=== PATIENT | male | born 1950 | race Caucasian/White ===

== ENCOUNTER → 2020-07-21 11:15 | Outpatient (BNVA) | payer OTHER, SELFPAY | PROVIDERS: PCP Internal Medicine Sports Medicine; Visit Provider Nurse Practitioner Family | DX: Z01.818 Encounter for other preprocedural examination (principal); J43.2 Centrilobular emphysema; J96.11 Chronic respiratory failure with hypoxia; F32.9 Major depressive disorder, single episode, unspecified; E78.5 Hyperlipidemia, unspecified; I25.10 Atherosclerotic heart disease of native coronary artery without angina pectoris; I10 Essential (primary) hypertension; Z87.891 Personal history of nicotine dependence; Z88.6 Allergy status to analgesic agent; Z88.0 Allergy status to penicillin; Z88.2 Allergy status to sulfonamides; Z88.8 Allergy status to other drugs, medicaments and biological substances; Z95.5 Presence of coronary angioplasty implant and graft; Z79.899 Other long term (current) drug therapy | CPT/HCPCS: 93005 ==

== ENCOUNTER → 2020-08-29 08:47 | Outpatient (BNVA) | payer OTHER, SELFPAY | PROVIDERS: PCP Internal Medicine Sports Medicine; Referring Provider Internal Medicine Sports Medicine; Visit Provider Hospitalist | DX: J96.11 Chronic respiratory failure with hypoxia (principal); J43.2 Centrilobular emphysema | CPT/HCPCS: 99212 ==

== ENCOUNTER 2020-09-12 13:47 | Outpatient (REF) | payer OTHER, SELFPAY ==
--- NOTE | 2020-09-12 13:56 | XR_ITS ---
EXAMINATION: XR CHEST CLINICAL INFORMATION: Centrilobular emphysema, J43.2 COMPARISON: CT chest screening 11/11/2019, chest radiographs 02/20/2019, 01/11/2019 TECHNIQUE: 2 views of the chest were obtained. FINDINGS: There is no overt hyperinflation. Subtle groundglass opacities are suggested subpleural mid zones without lobar or segmental airspace consolidation or air bronchograms. No cavitary lesion. No effusion. The heart is normal in size. Tapering cardiac apex is consistent with areolar tissue. XR/XR chest 2V IMPRESSION: 1. Suspect subtle groundglass opacities bilateral subpleural mid zones. 2. No lobar or segmental airspace consolidation, air bronchograms, or effusion.
== END 2020-09-12 13:48 | disposition home or self-care (01) ==
LOC: HO.XRAY 13:47
PROVIDERS: PCP Internal Medicine Sports Medicine; Visit Provider Hospitalist
DX: J43.2 Centrilobular emphysema (principal)
CPT/HCPCS: 71046

== ENCOUNTER 2020-10-05 13:45 | Outpatient (RCR) | payer OTHER, SELFPAY ==
--- NOTE | 2020-07-28 10:09 | P.PNPSO_ITS ---
Subjective Subjective Date of Service: 06/27/20 Reason For Visit: depression Interim History: Pt reports an increase in depressive sx. Describes feeling like a shakey mess . Finds previous regime was better with sx mgt. Will return to Olanzapine 5 mg hs, 2.5 mg a.m., Lorazepam, and Trileptal 150 mg bid. Xanax trial not too helpful. Reports he has attempted to structure his day. Medication Compliance: Yes Side effects from medications: No Attending Groups: No (NA) Review of Systems Cardiovascular: Reports dyspnea and Reports dyspnea on exertion Respiratory: Reports dyspnea, Reports dyspnea on exertion and Reports other (COPD, Emphysema) Psychiatric: Reports anxiety, Reports depression, Reports difficulty co ncentrating, Reports hopelessness, Reports irritability, Reports anhedonia and Reports panic attacks Mental Status Exam Mental Status Exam Patient Orientation: Person, Place, Time and Situation Level of Consciousness: Awake, Appropriate and Alert Patient Behavior: Passive, Anxious and Confused (intermittent, brief, and at times) Mood Description: Anxious and Flat Affect Description: Depressed and Flat Patient Cognition Impaired: No Ability to Follow Directions: Excellent Speech Pattern: Clear, Appropriate, Monotone, Spontaneous Speech and Soft-Spoken Memory Description: Intact Hallucinations: None Delusions: Not Present Thought Process: Intact Thought Content: positive for Intact Depressive Symptoms: Increased Anxiety, Crying Spells, Loss of Int. in Activity, Feelings of Worthlessness, Hopelessness, Isolating-Friends/Family, Unhappiness, Increased Fatigue, Low Self Esteem, Loss of Energy and Difficulty Concentrating Judgement: Good Discharge Plan Discharge Attending provider: Trina Rawls Additional Instructions: Zyprexa 2.5 a.m. 5 mg hs Trileptal 150 mg bid Stop Rexulti, Xanax Medications: New oxcarbazepine [Trileptal] 150 mg tablet 150 mg PO BID Qty: 60 RF: 0 Trintellix 20 mg tablet 20 mg PO DAILY Qty: 90 RF: 0 lorazepam [Ativan] 0.5 mg tablet 0.5 mg PO TID PRN (Reason: anxiety) Qty: 90 RF: 0 Discontinued Ativan 0.5 mg 0.5 mg PO ONCE RF: 0 Ativan 0.5 mg 0.5 mg PO BID PRN (Reason: Anxiety) RF: 0 No Action ProAir RespiClick 90 mcg/actuation aerosol powdr breath activated 2 inh inhalation Q4-6H PRN (Reason: Shortness Of Breath) Qty: 1 RF: 3 levalbuterol tartrate 45 mcg/actuation HFA aerosol inhaler 2 puff inhalation Q4H PRN (Reason: shortness of breath or wheezing) Qty: 15 RF: 11 albuterol sulfate 2.5 mg /3 mL (0.083 %) solution for nebulization 3 ml inhalation Q6H PRN (Reason: Shortness Of Breath) RF: 0 famotidine 40 mg tablet 1 tab PO BEDTIME RF: 0 propranolol 10 mg tablet 1 tab PO TID RF: 0 amlodipine 10 mg tablet 1 tab PO DAILY RF: 0 Spiriva Respimat 2.5 mcg/actuation mist 2 puff PO DAILY RF: 0 Zyprexa 5 mg 5 mg PO BEDTIME RF: 0 Zyprexa 2.5 mg 2.5 mg PO DAILY PRN (Reason: Anxiety) RF: 0 Trelegy Ellipta 100-62.5-25 mcg blister with device 1 inh inhalation DAILY 30 Days Qty: 60 RF: 11 ascorbic acid (vitamin C) 1,000 mg tablet 500 mg PO BID RF: 0 Spectravite Adult 50 Plus 0.4-300-250 mg-mcg-mcg tablet 1 tab PO DAILY RF: 0 zinc acetate 25 mg (zinc) capsule 25 mg PO DAILY RF: 0 cholecalciferol (vitamin D3) 25 mcg (1,000 unit) capsule 50 mcg PO DAILY RF: 0 dicyclomine 10 mg capsule 30 mg PO TID RF: 0 olanzapine 2.5 mg tablet 2.5 mg PO DAILY PRN (Reason: anxiety) RF: 0 Assessment & Plan Patient educated on: medication risk/benefits and therapeutic strategies Informed Consent: understands and further education needed Reason for contiued therapy Substantial Risk for: inability to function, rapid decompensation and med/psych decompensation Greater than 50% of the session was spent on counseling and/or coordination of care
--- NOTE | 2020-07-28 10:18 | HO.OPPROGNO ---
Subjective Subjective Date of Service: 07/07/20 Reason For Visit: depression Interim History: Meetings with pt 07/06 and 07/07. Feeling better, less anxious today. Will have consults for TMS and ECT along with cardiac, respiratory consults for clearance for ECT if needed on 07/21/20. Pt participating in scale evaluation. He makes the point that scales are not good measures of how he is feeling as he finds he is connected with providers, feels good support and is improved when talking with them vs how he is feeling when he is on his own. Discussed these changes in mood/affect and benefits of remaining connected with others, especially during pandemic. Medication changes tolerated without adverse effect. Review of Systems Cardiovascular: Reports dyspnea and Reports dyspnea on exertion Respiratory: Reports dyspnea and Reports dyspnea on exertion Psychiatric: Reports anxiety, Reports depression, Reports hopelessness, Reports anhedonia and Reports panic attacks Mental Status Exam Mental Status Exam Patient Orientation: Person, Place, Time and Situation Level of Consciousness: Awake and Alert Patient Behavior: Appropriate Mood Description: Anxious and Flat Affect Description: Flat Patient Cognition Impaired: No Ability to Follow Directions: Excellent Speech Pattern: Clear, Appropriate and Spontaneous Speech Memory Description: Intact Hallucinations: None Delusions: Not Present Thought Process: Intact Thought Content: positive for Intact Depressive Symptoms: Increased Anxiety, Loss of Int. in Activity, Feelings of Worthlessness, Hopelessness, Unhappiness, Increased Fatigue, Low Self Esteem, Loss of Energy and Difficulty Concentrating Judgement: Good Discharge Plan Discharge Attending provider: Trina Rawls Additional Instructions: Zyprexa 2.5 a.m. 5 mg hs Trileptal 150 mg bid Stop Rexultmerrill Xanax Medications: New oxcarbazepine [Trileptal] 150 mg tablet 150 mg PO BID Qty: 60 RF: 0 Trintellix 20 mg tablet 20 mg PO DAILY Qty: 90 RF: 0 lorazepam [Ativan] 0.5 mg tablet 0.5 mg PO TID PRN (Reason: anxiety) Qty: 90 RF: 0 olanzapine [Zyprexa] 5 mg tablet 5 mg PO BEDTIME Qty: 30 RF: 1 Continued olanzapine 2.5 mg tablet 2.5 mg PO DAILY PRN (Reason: anxiety) Qty: 30 RF: 1 Discontinued Ativan 0.5 mg 0.5 mg PO ONCE RF: 0 Ativan 0.5 mg 0.5 mg PO BID PRN (Reason: Anxiety) RF: 0 No Action ProAir RespiClick 90 mcg/actuation aerosol powdr breath activated 2 inh inhalation Q4-6H PRN (Reason: Shortness Of Breath) Qty: 1 RF: 3 levalbuterol tartrate 45 mcg/actuation HFA aerosol inhaler 2 puff inhalation Q4H PRN (Reason: shortness of breath or wheezing) Qty: 15 RF: 11 albuterol sulfate 2.5 mg /3 mL (0.083 %) solution for nebulization 3 ml inhalation Q6H PRN (Reason: Shortness Of Breath) RF: 0 famotidine 40 mg tablet 1 tab PO BEDTIME RF: 0 propranolol 10 mg tablet 1 tab PO TID RF: 0 amlodipine 10 mg tablet 1 tab PO DAILY RF: 0 Spiriva Respimat 2.5 mcg/actuation mist 2 puff PO DAILY RF: 0 Zyprexa 5 mg 5 mg PO BEDTIME RF: 0 Zyprexa 2.5 mg 2.5 mg PO DAILY PRN (Reason: Anxiety) RF: 0 Trelegy Ellipta 100-62.5-25 mcg blister with device 1 inh inhalation DAILY 30 Days Qty: 60 RF: 11 ascorbic acid (vitamin C) 1,000 mg tablet 500 mg PO BID RF: 0 Spectravite Adult 50 Plus 0.4-300-250 mg-mcg-mcg tablet 1 tab PO DAILY RF: 0 zinc acetate 25 mg (zinc) capsule 25 mg PO DAILY RF: 0 cholecalciferol (vitamin D3) 25 mcg (1,000 unit) capsule 50 mcg PO DAILY RF: 0 dicyclomine 10 mg capsule 30 mg PO TID RF: 0 Assessment & Plan Patient educated on: medication risk/benefits Informed Consent: understands and further education needed Reason for contiued therapy Substantial Risk for: med/psych decompensation Greater than 50% of the session was spent on counseling and/or coordination of care
--- NOTE | 2020-08-02 12:19 | HO.OPPROGNO ---
Subjective Subjective Date of Service: 08/02/20 Reason For Visit: depression Interim History: I feel lousey . Pt reports JULIANO~ 4:30am with panic sx, and feeling very depressed. Cites fear of virus as part of this. Reports he awaits TMS to begin. Current regime, Zyprexa 2.5 mg 10am Ativan 1mg 4:30am, 0.5 mg 10am, Zyprexa 2.5 mg hs, Trileptal 150 mg bid, Propranolol 10 mg tid, Trintellix 20 mg a.m. Using oxygen for 10 minutes upon awakening. Medication Compliance: Intermittent Side effects from medications: No Attending Groups: No (NA) Review of Systems Constitutional: Reports difficulty sleeping Cardiovascular: Reports dyspnea and Reports dyspnea on exertion Respiratory: Reports dyspnea, Reports dyspnea on exertion and Reports wheezing Psychiatric: Reports abnormal sleep pattern, Reports anxiety, Reports depression, Reports hopelessness, Reports anhedonia and Reports panic attacks Allergic/Immunologic: Reports wheezing Mental Status Exam Mental Status Exam Patient Orientation: Person, Place, Time and Situation Level of Consciousness: Awake, Appropriate and Alert Patient Behavior: Appropriate and Cooperative Mood Description: Anxious Affect Description: Anxious Patient Cognition Impaired: No Ability to Follow Directions: Excellent Speech Pattern: Clear Memory Description: Intact Hallucinations: None Thought Process: Intact Thought Content: positive for Intact Depressive Symptoms: Increased Anxiety, Insomnia, Difficulty Sleeping, Hopelessness, Isolating-Friends/Family, Unhappiness, Increased Fatigue and Loss of Energy Judgement: Good Discharge Plan Discharge Attending provider: Trina Rawls Additional Instructions: Zyprexa 2.5 a.m. 5 mg hs Trileptal 150 mg bid Stop Татьяна Brock 08/02/20- Increase Lorazepam to 1 mg bid prn Pt has been taking Zyprexa 2.5 mg bid. He will increase to 2.5 mg a.m. 5 mg p.m. Increase Trileptal to 300mg po bid Medications: New oxcarbazepine [Trileptal] 150 mg tablet 150 mg PO BID Qty: 60 RF: 0 Trintellix 20 mg tablet 20 mg PO DAILY Qty: 90 RF: 0 olanzapine [Zyprexa] 5 mg tablet 5 mg PO BEDTIME Qty: 30 RF: 1 lorazepam 1 mg tablet 1 mg PO BID PRN (Reason: anxiety) Qty: 60 RF: 0 Continued olanzapine 2.5 mg tablet 2.5 mg PO DAILY PRN (Reason: anxiety) Qty: 30 RF: 1 Discontinued Ativan 0.5 mg 0.5 mg PO ONCE RF: 0 Ativan 0.5 mg 0.5 mg PO BID PRN (Reason: Anxiety) RF: 0 No Action ProAir RespiClick 90 mcg/actuation aerosol powdr breath activated 2 inh inhalation Q4-6H PRN (Reason: Shortness Of Breath) Qty: 1 RF: 3 levalbuterol tartrate 45 mcg/actuation HFA aerosol inhaler 2 puff inhalation Q4H PRN (Reason: shortness of breath or wheezing) Qty: 15 RF: 11 albuterol sulfate 2.5 mg /3 mL (0.083 %) solution for nebulization 3 ml inhalation Q6H PRN (Reason: Shortness Of Breath) RF: 0 famotidine 40 mg tablet 1 tab PO BEDTIME RF: 0 propranolol 10 mg tablet 1 tab PO TID RF: 0 amlodipine 10 mg tablet 1 tab PO DAILY RF: 0 Spiriva Respimat 2.5 mcg/actuation mist 2 puff PO DAILY RF: 0 Zyprexa 5 mg 5 mg PO BEDTIME RF: 0 Zyprexa 2.5 mg 2.5 mg PO DAILY PRN (Reason: Anxiety) RF: 0 Trelegy Ellipta 100-62.5-25 mcg blister with device 1 inh inhalation DAILY 30 Days Qty: 60 RF: 11 ascorbic acid (vitamin C) 1,000 mg tablet 500 mg PO BID RF: 0 Spectravite Adult 50 Plus 0.4-300-250 mg-mcg-mcg tablet 1 tab PO DAILY RF: 0 zinc acetate 25 mg (zinc) capsule 25 mg PO DAILY RF: 0 cholecalciferol (vitamin D3) 25 mcg (1,000 unit) capsule 50 mcg PO DAILY RF: 0 dicyclomine 10 mg capsule 30 mg PO TID RF: 0 Assessment & Plan Patient educated on: medication risk/benefits, TMS (pending) and therapeutic strategies Informed Consent: understands and further education needed Reason for contiued therapy Substantial Risk for: med/psych decompensation Greater than 50% of the session was spent on counseling and/or coordination of care
--- NOTE | 2020-09-20 16:19 | HO.OPPROGNO ---
Subjective Subjective Date of Service: 09/20/20 Reason For Visit: depression Discharge Plan Discharge Attending provider: Trina Rawls Additional Instructions: Zyprexa 2.5 a.m. 5 mg hs Trileptal 150 mg bid Stop Mukul Brockgunner 08/02/20- Increase Lorazepam to 1 mg bid prn Pt has been taking Zyprexa 2.5 mg bid. He will increase to 2.5 mg a.m. 5 mg p.m. Increase Trileptal to 300mg po bid Medications: New Trintellix 20 mg tablet 20 mg PO DAILY Qty: 90 RF: 0 oxcarbazepine [Trileptal] 300 mg tablet 300 mg PO BID Qty: 60 RF: 1 lorazepam 0.5 mg tablet 0.5 mg PO BID PRN (Reason: anxiety) Qty: 60 RF: 1 Continued propranolol 10 mg tablet 1 tab PO TID Qty: 270 RF: 0 lorazepam 1 mg tablet 1 mg PO BID PRN (Reason: anxiety) Qty: 60 RF: 1 olanzapine 2.5 mg tablet 2.5 mg PO DAILY PRN (Reason: anxiety) Qty: 90 RF: 0 olanzapine [Zyprexa] 5 mg tablet 5 mg PO BEDTIME Qty: 90 RF: 0 Discontinued Ativan 0.5 mg 0.5 mg PO ONCE RF: 0 Ativan 0.5 mg 0.5 mg PO BID PRN (Reason: Anxiety) RF: 0 No Action ProAir RespiClick 90 mcg/actuation aerosol powdr breath activated 2 inh inhalation Q4-6H PRN (Reason: Shortness Of Breath) Qty: 1 RF: 3 levalbuterol tartrate 45 mcg/actuation HFA aerosol inhaler 2 puff inhalation Q4H PRN (Reason: shortness of breath or wheezing) Qty: 15 RF: 11 albuterol sulfate 2.5 mg /3 mL (0.083 %) solution for nebulization 3 ml inhalation Q6H PRN (Reason: Shortness Of Breath) RF: 0 famotidine 40 mg tablet 1 tab PO BEDTIME RF: 0 amlodipine 10 mg tablet 1 tab PO DAILY RF: 0 Spiriva Respimat 2.5 mcg/actuation mist 2 puff PO DAILY RF: 0 Zyprexa 5 mg 5 mg PO BEDTIME RF: 0 Zyprexa 2.5 mg 2.5 mg PO DAILY PRN (Reason: Anxiety) RF: 0 Trelegy Ellipta 100-62.5-25 mcg blister with device 1 inh inhalation DAILY 30 Days Qty: 60 RF: 11 ascorbic acid (vitamin C) 1,000 mg tablet 500 mg PO BID RF: 0 Spectravite Adult 50 Plus 0.4-300-250 mg-mcg-mcg tablet 1 tab PO DAILY RF: 0 zinc acetate 25 mg (zinc) capsule 25 mg PO DAILY RF: 0 cholecalciferol (vitamin D3) 25 mcg (1,000 unit) capsule 50 mcg PO DAILY RF: 0 dicyclomine 10 mg capsule 30 mg PO TID RF: 0 levalbuterol HCl 1.25 mg/3 mL solution for nebulization inhalation RF: 0 Flublok Quad [id number] (PF) 180 mcg (45 mcg x 4)/0.5 mL syringe IM RF: 0 fluticasone propion-salmeterol [Advair Diskus] 500-50 mcg/dose blister with device 1 inh inhalation BID 30 Days Qty: 60 RF: 11 prednisone 20 mg tablet 20 mg PO DAILY 10 Days Qty: 15 RF: 0 Assessment & Plan Greater than 50% of the session was spent on counseling and/or coordination of care
--- NOTE | 2021-02-01 15:53 | PM.EVENT ---
Event Note Date of Service: 02/01/21 Event Note: Pt has a history of being seen in [facility] which has closed effective November 21, 2020. Pt transferred on 11/02/20. Pt is on a waiting list to be see for psychopharmacology with [facility]. 11/08/20: Appt with [facility] intake went well-waiting list for prescriber. Sleep/Appetite are good, Reading about Remeron for anxiety which we will trial. 11/16/20: Rehab is going well, learning a lot about his breathing. Mirtazapine working at 3.75 mg, asks to increase to 7.5 mg hs which we will trial. 11/30/20: Awakening comfortable. Stopped Trileptal which he thinks helped anxiety but caused pneumonitis. Continues with Olanzapine, Propranolol, Lorazepam, Trintellix. Asking to trial Fluvoxamine. Discussed cross-titration/taper with Trintellix and need to allow 4-6 weeks trial which he agrees to. 12/12/20: Reports stress, misplaces items at times-preparing to attend a [employer]-trying to get back out as COVID resolves. Fluvoxamine has stopped after 9 days, was taking 1/4 of a 50 mg pill. 12.5 mg Finds it not helpful so he has stopped. 12/14/20: Reports Fluvoxamine was not helpful so he has stopped. Sleep/Appetite are Intact. Anxiety is high. Discussed tapering Trintellix as well. Discussed with pt that antidepressants do not appear to help sx, and even in small doses he exacerbates-Olanzapine, Lorazepam have been consistent and useful. Pt still reports researching meds and states that at times he finds this not to be helpful as he can attain sx while reading. Encouraged to utilized his oxygen as well. Trintellix to decrease from 20 mg daily to 15 mg daily 01/06/21: Pt reports ongoing anxiety with an overall decrease of sx. Using Lorazepam tid. Olanzapine helps also. Pt has stopped Trintellix he reports and feels a decrease in focus but also a decrease in anxiety. Discussed EmSam trial, discussed Depakote trial-Plan: Depakote 125 mg daily. Sleep and appetite are great , however anxiety begins upon awakening-decreasing after breakfast and Ativan prn. 01/13/21: Pt reports he stopped Remeron 01/11/21. Therapist will be away until mid-January. Pt states he is still on the waiting list for a prescriber with [facility]. Reports sleep and appetite are good. Depakote 125 mg is useful, asks if it can be titrated to bid which we will do.. Still considering EmSam. Continues with Propranolol 10 mg tid, Olanzapine 5 mg hs, 2.5 mg daily prn, Lorazepam 1 mg tid prn. Again discussed with pt having VNA to assist with medicines, but he declines. 01/18/21: Pt reports he has stopped Mirtazapine trial. Anxiety is strongest in the morning. Continues with Olanzapine, Lorazepam, Depakote 125 mg bid-initially packed a punch now more subdued. Reports sleeping well, not as productive as he would like to be, able to go on walks, rides, but not doing projects as he used to do. Using O2 as needed. 01/27/21- Reports some relief with Depakote. Discussed increase to 125 mg tid which he agrees. Difficulty with focus. Still considering a possible EmSam trial. Using Lorazepam-keeping this at 1 mg bid along with Olanzapine. 02/01/21-Pt reports no improvement with Depakote 125 mg tid. He denies SE but continues to have anxiety/panic. He finds Olanzapine 2.5 mg daily prn and 5 mg hs helpful and will continue. He will continue Lorazepam 1 mg tid prn, and Propranolol 10 mg tid. He reports he will begin a 28 day course of Azithromycin 250 mg with his respiratory team. Therapist from [facility] he reports is back from her leave. They have re-connected. Pt remains on the waiting list for psychopharmacology. Plan: Will taper Depakote to 125 mg bid on 02/02 and 125 mg daily on 02/03 and discontinue. No further changes at this time.
== END 2020-11-20 23:55 | disposition home or self-care (01) ==
LOC: HO.PAOS 13:45
PROVIDERS: Visit Provider Clinical Nurse Specialist Psychiatric/Mental Health, Adult
DX: F33.2 Major depressive disorder, recurrent severe without psychotic features (principal); F41.0 Panic disorder [episodic paroxysmal anxiety]
CPT/HCPCS: 99213

== ENCOUNTER 2020-10-06 13:00 | Outpatient (RCR) | payer OTHER, SELFPAY ==
--- NOTE | 2020-07-22 13:36 | W.PM.TMSCONS ---
History of Present Illness General Data Date of Service: 07/22/2020 Reason for consult: consult for TMS Requesting provider: Trina Rawls History of Present Illness the patient is a 70-year-old male with a history of severe treatment resistant depression who has had a good response to TMS in the past and is at medical risk for ECT secondary to COPD and ASHD. The patient for months has had ongoing depressed mood difficulty enjoying things fearfulness leaving the house an ongoing hopelessness and helplessness. Feels like he will never be able to function again. Patient has had 2 inpatient hospitalizations secondary to treatment resistant depression. The patient sees Trina Koroma for therapy and medication management. Current medications have included Trintellix 20 mg daily Zyprexa 5 mg at bedtime 2.5 mg daily as needed Ativan 0.5 mg the morning and daily as needed Trileptal 150 mg twice a day propranolol 10 mg 3 times a day albuterol nebulizer amlodipine 10 mg daily Spiriva 2.5 mg 2 puffs daily for admitted in 40 mg daily. The patient had a previous course of TMS with good response. he is a general sense of despondency feeling at times that he might be better off feeling useless Past Psychiatric History/Medication Trials: Past medication trials include Effexor fluoxetine sertraline Paxil Wellbutrin Remeron Lamictal and Seroquel. 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 He has a supportive family including sister and mother Substance History: no history of alcohol or substance abuse Trauma History: no history of sexual or physical trauma Meds/Allergies Meds Home Medications Medication Instructions Recorded Confirmed Type Zyprexa 2.5 mg PO DAILY PRN 07/08/20 07/21/20 History Zyprexa 5 mg PO BEDTIME 07/08/20 07/21/20 History albuterol sulfate 3 ml INHALATION Q6H PRN 07/08/20 07/21/20 History albuterol sulfate [ProAir 2 puff INHALATION Q4-6H PRN 07/08/20 07/21/20 History RespiClick] amlodipine 1 tab PO DAILY 07/08/20 07/21/20 History famotidine 1 tab PO BEDTIME 07/08/20 07/21/20 History propranolol 1 tab PO TID 07/08/20 07/21/20 History tiotropium bromide [Spiriva 2 puff PO DAILY 07/08/20 07/21/20 History Respimat] ascorbic acid (vitamin C) 1,000 mg 500 mg PO BID 07/21/20 07/21/20 History tablet cholecalciferol (vitamin D3) 25 50 mcg PO DAILY cap 07/21/20 07/21/20 History mcg (1,000 unit) capsule dicyclomine 10 mg capsule 30 mg PO TID 07/21/20 07/21/20 History fkotpero-pzo-xskzx acid 0.4 1 tab PO DAILY 07/21/20 07/21/20 History mg-lycopene 300 mcg-lutein 250 mcg tablet olanzapine 2.5 mg tablet 2.5 mg PO DAILY PRN 07/21/20 07/21/20 History zinc acetate 25 mg (zinc) capsule 25 mg PO DAILY 07/21/20 07/21/20 History Allergies Allergies Allergy/AdvReac Type Severity Reaction Status Date / Time lamotrigine [From LAMICTAL] Allergy Severe agitation Verified 07/21/20 14:44 and anxiety with titration codeine [CODEINE] Allergy Intermediate INSOMNIA Verified 07/21/20 14:44 Penicillins [PENICILLINS] Allergy Intermediate RASH Verified 07/21/20 14:44 epinephrine [EPINEPHRINE] AdvReac Intermediate Hypertensio Verified 07/21/20 14:44 n escitalopram [From LEXAPRO] AdvReac Intermediate NIGHTMARES Verified 07/21/20 14:44 sertraline [From ZOLOFT] AdvReac Intermediate NIGHTMARES Verified 07/21/20 14:44 sulfamethoxazole AdvReac Intermediate STOMACH Verified 07/21/20 14:44 [From BACTRIM] UPSET Mental Status Exam Mental Status Exam Patient Orientation: Person, Place, Time and Situation Level of Consciousness: Awake Patient Behavior: Cooperative and Anxious Mood Description: Constricted, Anxious, Blunted and Sad Affect Description: Depressed, Anxious and Apprehensive Speech Pattern: Clear and Appropriate Memory Description: Working Impaired Hallucinations: None Delusions: Not Present Thought Process: Distracted and Rumination Depressive Symptoms: Hopelessness, Increased Fatigue and Difficulty Concentrating Assessment & Plan Assessment & Plan (1) Major depressive disorder, recurrent episode, severe with anxious distress: Status: Acute Code(s): F33.2 - Major depressive disorder, recurrent severe without psychotic features (2) COPD (chronic obstructive pulmonary disease): Qualifiers: COPD type: emphysema Emphysema type: centrilobular Qualified Code(s): J43.2 - Centrilobular emphysema Status: Acute Code(s): J44.9 - Chronic obstructive pulmonary disease, unspecified (3) Stented coronary artery: Status: Acute Code(s): Z95.5 - Presence of coronary angioplasty implant and graft Recommendations: the patient has relapse with severe depression and has never stabilized on medication alone. The stress of the current pandemic the patient feeling in ongoing way useless isolated not functioning worsening depression with thoughts that he would be better off not present. Patient had a history of a good response to TMS he is currently severely depressed and ruminating and would benefit from another course of TMS. Patient is at risk with ECT and should not be considered unless absolutely necessary. There are no medical contraindications to TMS. No metal objects no history of seizures no psychosis patient would benefit from a trial as soon as possible Greater than 50% of the session was spent on counseling and/or coordination of care
--- NOTE | 2020-08-10 15:12 | PM.EVENT ---
Event Note Date of Service: 08/10/20 Event Note: Brief check in with pt today. He initiated TMS. Appointment will be daily at 1:15pm. Discussed persistant a.m. anxiety/panic and possible etiologies. Discussed this sx possibly having some pulmonary connections. Pt will use O2 for a longer segment in the a.m. and we will continue to evaluate.
--- NOTE | 2020-08-11 04:21 | HO.TMSDAILY2 ---
TMS Daily Progress Note Daily TMS Progress Note Week #: 1 Treatment #(10-22): 2 PHQ-9 Pre-Treatment (10-19): 18 PHQ-9 Most Recent (10-19): 18 DAIANA-7 Pre-Treatment (0-21): 15 DAIANA-7 Most Recent (0-21): 15 CGI-I Most Recent: 4 = No Change Q-LES-Q-SF Most Recent: 45 Reviewed: TMS Tech Note Reviewed Verification: I have reviewed the TMS Quill Picking Machine Operator Note and agree with the contents. The patient remains a candidate to continue TMS treatment per protocol.
--- NOTE | 2020-08-12 13:50 | P.PNPS_ITS ---
TMS Daily Progress Note Daily TMS Progress Note Week #: 1 Treatment #(10-22): 2 PHQ-9 Pre-Treatment (10-19): 18 PHQ-9 Most Recent (10-19): 18 DAIANA-7 Pre-Treatment (0-21): 15 DAIANA-7 Most Recent (0-21): 15 CGI-I Most Recent: 4 = No Change Q-LES-Q-SF Most Recent: 45 Reviewed: TMS Tech Note Reviewed Verification: I have reviewed the TMS Indirect Sales Representative Note and agree with the contents. The patient remains a candidate to continue TMS treatment per protocol.
--- NOTE | 2020-08-12 20:52 | P.PNPS_ITS ---
TMS Daily Progress Note Daily TMS Progress Note Week #: 1 (for initial mapping 08/10/2020) Treatment #(-30): 1 PHQ-9 Pre-Treatment (1-): 18 PHQ-9 Most Recent (10-19): 18 DAIANA-7 Pre-Treatment (0-21): 15 DAIANA-7 Most Recent (0-21): 15 CGI-I Most Recent: 4 = No Change Q-LES-Q-SF Most Recent: 45 Reviewed: TMS Tech Note Reviewed Verification: I have reviewed the TMS Lawn And Tree Service Spray Supervisor Note and agree with the contents. The patient remains a candidate to continue TMS treatment per protocol. difficult to map limited response on l 08/10/2020
--- NOTE | 2020-08-15 14:56 | HO.TMSDAILY2 ---
TMS Daily Progress Note Daily TMS Progress Note Week #: 1 Treatment #(10-22): 4 PHQ-9 Pre-Treatment (10-19): 18 PHQ-9 Most Recent (10-19): 18 DAIANA-7 Pre-Treatment (0-21): 15 DAIANA-7 Most Recent (0-21): 15 CGI-I Most Recent: 4 = No Change Q-LES-Q-SF Most Recent: 45 Reviewed: TMS Tech Note Reviewed Verification: I have reviewed the TMS Licensed Practical Nurse Clinic Nurse Note and agree with the contents. The patient remains a candidate to continue TMS treatment per protocol.
--- NOTE | 2020-08-16 23:18 | P.PNPS_ITS ---
TMS Daily Progress Note Daily TMS Progress Note Date of Service: 08/23/20 Week #: 1 Treatment #(10-22): 5 PHQ-9 Pre-Treatment (-): 18 PHQ-9 Most Recent (10-19): 18 DAIANA-7 Pre-Treatment (0-21): 15 DAIANA-7 Most Recent (0-21): 15 CGI-I Most Recent: 4 = No Change Q-LES-Q-SF Most Recent: 45 Reviewed: TMS Tech Note Reviewed Verification: I have reviewed the TMS Field Representatives Director Note and agree with the contents. The patient remains a candidate to continue TMS treatment per protocol.
--- NOTE | 2020-08-17 05:46 | HO.TMSDAILY2 ---
TMS Daily Progress Note Daily TMS Progress Note Date of Service: 08/18/20 Week #: 2 Treatment #(-30): 6 PHQ-9 Pre-Treatment (-): 18 PHQ-9 Most Recent (10-19): 18 DAIANA-7 Pre-Treatment (0-21): 15 DAIANA-7 Most Recent (0-21): 15 CGI-I Most Recent: 4 = No Change Q-LES-Q-SF Most Recent: 45 Reviewed: TMS Tech Note Reviewed Verification: I have reviewed the TMS Package Dyeing Machine Operator Note and agree with the contents. The patient remains a candidate to continue TMS treatment per protocol.
--- NOTE | 2020-08-22 17:32 | HO.TMSDAILY2 ---
TMS Daily Progress Note Daily TMS Progress Note Date of Service: 08/22/20 Week #: 2 Treatment #(10-22): 7 PHQ-9 Pre-Treatment (-): 18 PHQ-9 Most Recent (10-19): 18 DAIANA-7 Pre-Treatment (0-21): 15 DAIANA-7 Most Recent (0-21): 15 CGI-I Most Recent: 4 = No Change Q-LES-Q-SF Most Recent: 45 Reviewed: TMS Tech Note Reviewed Verification: I have reviewed the TMS Consulting Services Manager Note and agree with the contents. The patient remains a candidate to continue TMS treatment per protocol.
--- NOTE | 2020-08-23 23:35 | HO.TMSDAILY2 ---
TMS Daily Progress Note Daily TMS Progress Note Date of Service: 08/23/20 Week #: 2 Treatment #(-): 8 PHQ-9 Pre-Treatment (-): 18 PHQ-9 Most Recent (10-19): 18 DAIANA-7 Pre-Treatment (0-21): 15 DAIANA-7 Most Recent (0-21): 15 CGI-I Most Recent: 4 = No Change Q-LES-Q-SF Most Recent: 45 Reviewed: TMS Tech Note Reviewed Verification: I have reviewed the TMS Administrative Nursing Supervisor Note and agree with the contents. The patient remains a candidate to continue TMS treatment per protocol.
--- NOTE | 2020-08-24 08:12 | P.PNPS_ITS ---
TMS Daily Progress Note Daily TMS Progress Note Date of Service: 08/24/20 Week #: 2 Treatment #(-): 9 PHQ-9 Pre-Treatment (-): 18 PHQ-9 Most Recent (10-19): 17 DAINAA-7 Pre-Treatment (0-21): 15 DAIANA-7 Most Recent (0-21): 16 CGI-I Most Recent: 4 = No Change Q-LES-Q-SF Most Recent: 45 Reviewed: TMS Tech Note Reviewed Verification: I have reviewed the TMS Scientific Glass Blower Note and agree with the contents. The patient remains a candidate to continue TMS treatment per protocol.
--- NOTE | 2020-08-25 16:54 | P.PNPS_ITS ---
TMS Daily Progress Note Daily TMS Progress Note Date of Service: 08/25/20 Week #: 2 Treatment #(-): 10 PHQ-9 Pre-Treatment (-): 18 PHQ-9 Most Recent (10-19): 17 DAIANA-7 Pre-Treatment (0-21): 15 DAIANA-7 Most Recent (0-21): 16 CGI-I Most Recent: 4 = No Change Q-LES-Q-SF Most Recent: 45 Reviewed: TMS Tech Note Reviewed Verification: I have reviewed the TMS Social Welfare Research Worker Note and agree with the contents. The patient remains a candidate to continue TMS treatment per protocol.
--- NOTE | 2020-08-26 16:35 | P.PNPS_ITS ---
TMS Daily Progress Note Daily TMS Progress Note Date of Service: 08/26/20 Week #: 3 Treatment #(-): 11 PHQ-9 Pre-Treatment (-): 18 PHQ-9 Most Recent (10-19): 17 DAIANA-7 Pre-Treatment (0-21): 15 DAIANA-7 Most Recent (0-21): 16 CGI-I Most Recent: 4 = No Change Q-LES-Q-SF Most Recent: 45 Reviewed: TMS Tech Note Reviewed Verification: I have reviewed the TMS Triple Valve Mechanic Note and agree with the contents. The patient remains a candidate to continue TMS treatment per protocol.
--- NOTE | 2020-08-29 18:46 | HO.TMSDAILY2 ---
TMS Daily Progress Note Daily TMS Progress Note Date of Service: 08/29/20 Week #: 3 Treatment #(-30): 12 PHQ-9 Pre-Treatment (-): 18 PHQ-9 Most Recent (10-19): 17 DAIANA-7 Pre-Treatment (0-21): 15 DAIANA-7 Most Recent (0-21): 16 CGI-I Most Recent: 4 = No Change Q-LES-Q-SF Most Recent: 45 Reviewed: TMS Tech Note Reviewed Verification: I have reviewed the TMS Spiritual Counselor Note and agree with the contents. The patient remains a candidate to continue TMS treatment per protocol.
--- NOTE | 2020-08-30 20:45 | HO.TMSDAILY2 ---
TMS Daily Progress Note Daily TMS Progress Note Date of Service: 08/30/20 Week #: 3 Treatment #(-30): 13 PHQ-9 Pre-Treatment (1-): 18 PHQ-9 Most Recent (10-19): 10 DAIANA-7 Pre-Treatment (0-21): 15 DAIANA-7 Most Recent (0-21): 15 CGI-I Most Recent: 4 = No Change Q-LES-Q-SF Most Recent: 45 Reviewed: TMS Tech Note Reviewed Verification: I have reviewed the TMS Inside Sales Account Executive Note and agree with the contents. The patient remains a candidate to continue TMS treatment per protocol.
--- NOTE | 2020-08-31 20:57 | HO.TMSDAILY2 ---
TMS Daily Progress Note Daily TMS Progress Note Date of Service: 08/31/20 Week #: 3 Treatment #(-30): 14 PHQ-9 Pre-Treatment (-): 18 PHQ-9 Most Recent (10-19): 10 DAIANA-7 Pre-Treatment (0-21): 15 DAIANA-7 Most Recent (0-21): 15 CGI-I Most Recent: 4 = No Change Q-LES-Q-SF Most Recent: 45 Reviewed: TMS Tech Note Reviewed Verification: I have reviewed the TMS Set And Exhibit Designer Note and agree with the contents. The patient remains a candidate to continue TMS treatment per protocol.
--- NOTE | 2020-09-02 10:24 | HO.TMSDAILY2 ---
TMS Daily Progress Note Daily TMS Progress Note Date of Service: 09/01/20 Week #: 3 Treatment #(-30): 15 PHQ-9 Pre-Treatment (1-): 18 PHQ-9 Most Recent (10-19): 10 DAIANA-7 Pre-Treatment (0-21): 15 DAIANA-7 Most Recent (0-21): 15 CGI-I Most Recent: 4 = No Change Q-LES-Q-SF Most Recent: 45 Reviewed: TMS Tech Note Reviewed (Late entry for 09/01/20) Verification: I have reviewed the TMS Clinical Courier Note and agree with the contents. The patient remains a candidate to continue TMS treatment per protocol.
--- NOTE | 2020-09-02 16:14 | HO.TMSDAILY2 ---
TMS Daily Progress Note Daily TMS Progress Note Date of Service: 09/02/20 Week #: 4 Treatment #(-30): 16 PHQ-9 Pre-Treatment (1-): 18 PHQ-9 Most Recent (10-19): 10 DAIANA-7 Pre-Treatment (0-21): 15 DAIANA-7 Most Recent (0-21): 15 CGI-I Most Recent: 4 = No Change Q-LES-Q-SF Most Recent: 45 Reviewed: TMS Tech Note Reviewed Verification: I have reviewed the TMS Embedded Systems Software Engineer Note and agree with the contents. The patient remains a candidate to continue TMS treatment per protocol.
--- NOTE | 2020-09-05 15:13 | HO.TMSDAILY2 ---
TMS Daily Progress Note Daily TMS Progress Note Date of Service: 09/05/20 Week #: 4 Treatment #(-): 17 PHQ-9 Pre-Treatment (-): 18 PHQ-9 Most Recent (10-19): 10 DAIANA-7 Pre-Treatment (0-21): 15 DAIANA-7 Most Recent (0-21): 15 CGI-I Most Recent: 4 = No Change Q-LES-Q-SF Most Recent: 45 Reviewed: TMS Tech Note Reviewed Verification: I have reviewed the TMS Ground Source Heat Pump Technician Note and agree with the contents. The patient remains a candidate to continue TMS treatment per protocol.
--- NOTE | 2020-09-05 15:16 | HO.TMSDAILY2 ---
TMS Daily Progress Note Daily TMS Progress Note Date of Service: 09/05/20 Week #: 4 Treatment #(-): 17 PHQ-9 Pre-Treatment (-): 18 PHQ-9 Most Recent (10-19): 10 DAIANA-7 Pre-Treatment (0-21): 15 DAIANA-7 Most Recent (0-21): 15 CGI-I Most Recent: 4 = No Change Q-LES-Q-SF Most Recent: 45 Reviewed: TMS Tech Note Reviewed Verification: I have reviewed the TMS Superintendent Maintenance Note and agree with the contents. The patient remains a candidate to continue TMS treatment per protocol.
--- NOTE | 2020-09-06 15:40 | HO.TMSDAILY2 ---
TMS Daily Progress Note Daily TMS Progress Note Date of Service: 09/06/20 Week #: 4 Treatment #(-): 18 PHQ-9 Pre-Treatment (-): 18 PHQ-9 Most Recent (10-19): 10 DAIANA-7 Pre-Treatment (0-21): 15 DAIANA-7 Most Recent (0-21): 15 CGI-I Most Recent: 4 = No Change Q-LES-Q-SF Most Recent: 45 Reviewed: TMS Tech Note Reviewed Verification: I have reviewed the TMS Bone Char Kiln Operator Note and agree with the contents. The patient remains a candidate to continue TMS treatment per protocol.
--- NOTE | 2020-09-07 15:42 | P.PNPS_ITS ---
TMS Daily Progress Note Daily TMS Progress Note Date of Service: 09/07/20 Week #: 4 Treatment #(-): 19 PHQ-9 Pre-Treatment (1-): 18 PHQ-9 Most Recent (10-19): 10 DAIANA-7 Pre-Treatment (0-21): 15 DAIANA-7 Most Recent (0-21): 15 CGI-I Most Recent: 4 = No Change Q-LES-Q-SF Most Recent: 45 Reviewed: TMS Tech Note Reviewed Verification: I have reviewed the TMS Health Facilities Surveyor Note and agree with the contents. The patient remains a candidate to continue TMS treatment per protocol.
--- NOTE | 2020-09-09 18:20 | HO.TMSDAILY2 ---
TMS Daily Progress Note Daily TMS Progress Note Date of Service: 09/18/20 Week #: 4 Treatment #(-): 20 PHQ-9 Pre-Treatment (-): 18 PHQ-9 Most Recent (10-19): 10 DAIANA-7 Pre-Treatment (0-21): 15 DAIANA-7 Most Recent (0-21): 15 CGI-I Most Recent: 4 = No Change Q-LES-Q-SF Most Recent: 45 Reviewed: TMS Tech Note Reviewed Verification: I have reviewed the TMS Metal Stamping Machine Operator Note and agree with the contents. The patient remains a candidate to continue TMS treatment per protocol.
--- NOTE | 2020-09-12 17:52 | HO.TMSDAILY2 ---
TMS Daily Progress Note Daily TMS Progress Note Date of Service: 09/12/20 Week #: 5 Treatment #(-30): 20 PHQ-9 Pre-Treatment (-): 18 PHQ-9 Most Recent (10-19): 10 DAIANA-7 Pre-Treatment (0-21): 15 DAIANA-7 Most Recent (0-21): 15 CGI-I Most Recent: 4 = No Change Q-LES-Q-SF Most Recent: 45 Reviewed: TMS Tech Note Reviewed Verification: I have reviewed the TMS Plate Straightener Note and agree with the contents. The patient remains a candidate to continue TMS treatment per protocol.
--- NOTE | 2020-09-13 22:56 | P.PNPS_ITS ---
TMS Daily Progress Note Daily TMS Progress Note Date of Service: 09/13/20 Week #: 5 Treatment #(-30): 22 PHQ-9 Pre-Treatment (1-): 18 PHQ-9 Most Recent (10-19): 10 DAIANA-7 Pre-Treatment (0-21): 15 DAIANA-7 Most Recent (0-21): 15 CGI-I Most Recent: 4 = No Change Q-LES-Q-SF Most Recent: 45 Reviewed: TMS Tech Note Reviewed Verification: I have reviewed the TMS Casting House Worker Note and agree with the contents. The patient remains a candidate to continue TMS treatment per protocol.
--- NOTE | 2020-09-17 00:11 | HO.TMSDAILY2 ---
TMS Daily Progress Note Daily TMS Progress Note Date of Service: 09/14/20 Week #: 5 Treatment #(-30): 23 PHQ-9 Pre-Treatment (1-27): 18 PHQ-9 Most Recent (-): 10 DAIANA-7 Pre-Treatment (0-21): 15 DAIANA-7 Most Recent (0-21): 15 CGI-I Most Recent: 4 = No Change Q-LES-Q-SF Most Recent: 45 Reviewed: TMS Tech Note Reviewed Verification: I have reviewed the TMS Clinical Laboratory Manager Note and agree with the contents. The patient remains a candidate to continue TMS treatment per protocol.for 09/14/2020
--- NOTE | 2020-09-19 18:02 | HO.TMSDAILY2 ---
TMS Daily Progress Note Daily TMS Progress Note Date of Service: 09/19/20 Week #: 5 Treatment #(-30): 25 PHQ-9 Pre-Treatment (1-): 18 PHQ-9 Most Recent (-): 10 DAIANA-7 Pre-Treatment (0-21): 15 DAIANA-7 Most Recent (0-21): 15 CGI-I Most Recent: 4 = No Change Q-LES-Q-SF Most Recent: 45 Reviewed: TMS Tech Note Reviewed Verification: I have reviewed the TMS Behavioral Sciences Department Chair Note and agree with the contents. The patient remains a candidate to continue TMS treatment per protocol.
--- NOTE | 2020-09-20 23:10 | HO.TMSDAILY2 ---
TMS Daily Progress Note Daily TMS Progress Note Date of Service: 09/20/20 Week #: 4 Treatment #(10-22): 25 PHQ-9 Pre-Treatment (1-): 18 PHQ-9 Most Recent (-): 10 DAIANA-7 Pre-Treatment (0-21): 15 DAIANA-7 Most Recent (0-21): 15 CGI-I Most Recent: 4 = No Change Q-LES-Q-SF Most Recent: 45 Reviewed: TMS Tech Note Reviewed Verification: I have reviewed the TMS Certified Home Health Aide Note and agree with the contents. The patient remains a candidate to continue TMS treatment per protocol.
--- NOTE | 2020-09-21 23:12 | P.PNPS_ITS ---
TMS Daily Progress Note Daily TMS Progress Note Date of Service: 09/21/20 Week #: 4 Treatment #(-): 26 PHQ-9 Pre-Treatment (1-): 18 PHQ-9 Most Recent (10-19): 10 DAIANA-7 Pre-Treatment (0-21): 15 DAIANA-7 Most Recent (0-21): 15 CGI-I Most Recent: 4 = No Change Q-LES-Q-SF Most Recent: 45 Reviewed: TMS Tech Note Reviewed Verification: I have reviewed the TMS Radio Reporter Note and agree with the contents. The patient remains a candidate to continue TMS treatment per protocol.
--- NOTE | 2020-09-22 23:51 | P.PNPS_ITS ---
TMS Daily Progress Note Daily TMS Progress Note Date of Service: 09/22/20 Week #: 4 Treatment #(-): 27 PHQ-9 Pre-Treatment (1-): 18 PHQ-9 Most Recent (-): 10 DAIANA-7 Pre-Treatment (0-21): 15 DAIANA-7 Most Recent (0-21): 15 CGI-I Most Recent: 4 = No Change Q-LES-Q-SF Most Recent: 45 Reviewed: TMS Tech Note Reviewed Verification: I have reviewed the TMS Business Services Sales Agent Note and agree with the contents. The patient remains a candidate to continue TMS treatment per protocol.
--- NOTE | 2020-09-23 11:22 | HO.PS.ADMOP ---
HPI Chief Complaint: depression Sources of Information: patient interviewed and chart reviewed HPI Narrative: Pt reports an increase in anxiety. Describes the symptom as amazingly strong. TMS positioning changed to R side as L side focus can cause excitability. Change initiated on 09/19. Using Lorazepam 2 mg qd without great effect. Discussed clinic closing and referrals. Past Psychiatric History: Currently in a course of TMS with Dr. 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 He has a supportive family including sister and mother Trauma History: no history of sexual or physical trauma Meds/Allergies Meds Narrative: Trintellix 20 mg daily Trileptal 300 mg bid Propranolol 10 mg tid Olanzapine 2.5 a.m. (has stopped this) and 5 mg hs Lorazapem 1 mg bid Amlodipine 10 mg daily Famotidine 40 mg daily Pepcid 20 mg tid Dicyclomine 10 mg tid. Vitamin C, Vitamin D3, Spectravite, Zinc Spiriva, Advair, Xopenex Allergies Allergies Allergy/AdvReac Type Severity Reaction Status Date / Time lamotrigine [From LAMICTAL] Allergy Severe agitation Verified 08/29/20 09:03 and anxiety with titration codeine [CODEINE] Allergy Intermediate INSOMNIA Verified 08/29/20 09:03 Penicillins [PENICILLINS] Allergy Intermediate RASH Verified 08/29/20 09:03 epinephrine [EPINEPHRINE] AdvReac Intermediate Hypertensio Verified 08/29/20 09:03 n escitalopram [From LEXAPRO] AdvReac Intermediate NIGHTMARES Verified 08/29/20 09:03 sertraline [From ZOLOFT] AdvReac Intermediate NIGHTMARES Verified 08/29/20 09:03 sulfamethoxazole AdvReac Intermediate STOMACH Verified 08/29/20 09:03 [From BACTRIM] UPSET Mental Status Exam Mental Status Exam Patient Appearance: Well Grooomed and Appropriate Patient Orientation: Person, Place, Time and Situation Level of Consciousness: Awake and Appropriate Patient Behavior: Anxious Mood Description: Anxious Affect Description: Flat Patient Cognition Impaired: No Ability to Follow Directions: Good Speech Pattern: Clear, Appropriate and Spontaneous Speech Memory Description: Intact Hallucinations: None Delusions: Not Present Thought Process: Intact Thought Content: positive for Intact Depressive Symptoms: Increased Anxiety, Loss of Int. in Activity and Unhappiness Judgement: Good Assessment & Plan Assessment & Plan (1) Major depressive disorder, recurrent episode, severe with anxious distress: Status: Acute Code(s): F33.2 - Major depressive disorder, recurrent severe without psychotic features Assessment and Plan: -Re-start Zyprexa 2.5 mg-pt may use this in the a.m. or consolidate hs dosing to 7.5 mg. Patient educated on: medication risk/benefits Informed Consent: understands and further education needed Reason for continued therapy Substantial Risk for: inability to function and rapid decompensation
--- NOTE | 2020-09-26 23:55 | HO.TMSDAILY2 ---
TMS Daily Progress Note Daily TMS Progress Note Date of Service: 09/27/20 Week #: 4 Treatment #(10-22): 28 PHQ-9 Pre-Treatment (-): 18 PHQ-9 Most Recent (10-19): 10 DAIANA-7 Pre-Treatment (0-21): 15 DAIANA-7 Most Recent (0-): 15 CGI-I Most Recent: 4 = No Change Q-LES-Q-SF Most Recent: 45 Reviewed: TMS Tech Note Reviewed Verification: I have reviewed the TMS Incident Response Engineer Note and agree with the contents. The patient remains a candidate to continue TMS treatment per protocol.
--- NOTE | 2020-09-27 23:01 | HO.TMSDAILY2 ---
TMS Daily Progress Note Daily TMS Progress Note Date of Service: 09/27/20 Week #: 4 Treatment #(10-22): 29 PHQ-9 Pre-Treatment (-): 18 PHQ-9 Most Recent (10-19): 10 DAIANA-7 Pre-Treatment (0-21): 15 DAIANA-7 Most Recent (0-): 15 CGI-I Most Recent: 4 = No Change Q-LES-Q-SF Most Recent: 45 Reviewed: TMS Tech Note Reviewed Verification: I have reviewed the TMS Jet Aircraft Servicer Note and agree with the contents. The patient remains a candidate to continue TMS treatment per protocol.
--- NOTE | 2020-09-28 16:55 | HO.OPPROGNO ---
Subjective Subjective Date of Service: 10/28/20 Reason For Visit: depression Interim History: Continues to report anxiety, focused on early a.m. TMS ongoing. Medication Compliance: Yes Side effects from medications: No Review of Systems Cardiovascular: Reports dyspnea and Reports dyspnea on exertion Respiratory: Reports dyspnea, Reports dyspnea on exertion and Reports other (COPD) Psychiatric: Reports anxiety, Reports depression and Reports hopelessness Mental Status Exam Mental Status Exam Patient Orientation: Person, Place, Time and Situation Level of Consciousness: Awake and Alert Patient Behavior: Appropriate Mood Description: Depressed Affect Description: Flat Patient Cognition Impaired: No Ability to Follow Directions: Good Speech Pattern: Spontaneous Speech Memory Description: Intact Hallucinations: None Delusions: Not Present Thought Process: Intact Thought Content: positive for Intact Depressive Symptoms: Increased Anxiety and Increased Fatigue Judgement: Good Discharge Plan Discharge Attending provider: Nacho Peña Medications: Continued oxcarbazepine [Trileptal] 300 mg tablet 300 mg PO BID Qty: 60 RF: 1 Trintellix 20 mg tablet 20 mg PO DAILY Qty: 90 RF: 0 No Action ProAir RespiClick 90 mcg/actuation aerosol powdr breath activated 2 inh inhalation Q4-6H PRN (Reason: Shortness Of Breath) Qty: 1 RF: 3 levalbuterol tartrate 45 mcg/actuation HFA aerosol inhaler 2 puff inhalation Q4H PRN (Reason: shortness of breath or wheezing) Qty: 15 RF: 11 prednisone 20 mg tablet 20 mg PO DAILY 10 Days Qty: 15 RF: 0 albuterol sulfate 2.5 mg /3 mL (0.083 %) solution for nebulization 3 ml inhalation Q6H PRN (Reason: Shortness Of Breath) RF: 0 famotidine 40 mg tablet 1 tab PO BEDTIME RF: 0 amlodipine 10 mg tablet 1 tab PO DAILY RF: 0 Spiriva Respimat 2.5 mcg/actuation mist 2 puff PO DAILY RF: 0 Zyprexa 5 mg 5 mg PO BEDTIME RF: 0 Zyprexa 2.5 mg 2.5 mg PO DAILY PRN (Reason: Anxiety) RF: 0 propranolol 10 mg tablet 1 tab PO TID Qty: 270 RF: 0 olanzapine 2.5 mg tablet 2.5 mg PO DAILY PRN (Reason: anxiety) Qty: 90 RF: 0 olanzapine [Zyprexa] 5 mg tablet 5 mg PO BEDTIME Qty: 90 RF: 0 lorazepam 1 mg tablet 1 mg PO TID PRN (Reason: anxiety) Qty: 90 RF: 0 mirtazapine 7.5 mg tablet 3.75 mg PO BEDTIME Qty: 15 RF: 0 Trelegy Ellipta 100-62.5-25 mcg blister with device 1 inh inhalation DAILY 30 Days Qty: 60 RF: 11 ascorbic acid (vitamin C) 1,000 mg tablet 500 mg PO BID RF: 0 Spectravite Adult 50 Plus 0.4-300-250 mg-mcg-mcg tablet 1 tab PO DAILY RF: 0 zinc acetate 25 mg (zinc) capsule 25 mg PO DAILY RF: 0 cholecalciferol (vitamin D3) 25 mcg (1,000 unit) capsule 50 mcg PO DAILY RF: 0 dicyclomine 10 mg capsule 30 mg PO TID RF: 0 levalbuterol HCl 1.25 mg/3 mL solution for nebulization inhalation RF: 0 Flublok Quad (PF) 180 mcg (45 mcg x 4)/0.5 mL syringe IM RF: 0 fluticasone propion-salmeterol [Advair Diskus] 500-50 mcg/dose blister with device 1 inh inhalation BID 30 Days Qty: 60 RF: 11 prednisone 20 mg tablet 20 mg PO DAILY 10 Days Qty: 15 RF: 0 prednisone 10 mg tablet 10 mg PO DAILY 30 Days Qty: 30 RF: 4 Assessment & Plan Assessment & Plan (1) Major depressive disorder, recurrent episode, severe with anxious distress: Status: Acute Code(s): F33.2 - Major depressive disorder, recurrent severe without psychotic features Assessment and Plan: Pt to trial Trileptal 600 mg bid. Consolidate Olanzapine to 7.5 mg hs Lorazepam 1 mg tid trial vs 2 mg qd prn Continue TMS Greater than 50% of the session was spent on counseling and/or coordination of care Telehealth Telehealth Location of provider rendering services: practice address Location of patient: address on file Patient Identification confirmed using: Name, : Yes Telehealth method: voice only Patient verbally consented to treatment: Yes Patient verbally consented to billing insurance company: Yes Patient informed of any privacy concerns related to visit: Yes Time spent with patient (mins): 20
--- NOTE | 2020-09-28 23:27 | P.PNPS_ITS ---
TMS Daily Progress Note Daily TMS Progress Note Date of Service: 09/28/20 Week #: 4 Treatment #(-): 30 PHQ-9 Pre-Treatment (-): 18 PHQ-9 Most Recent (10-19): 10 DAIANA-7 Pre-Treatment (0-21): 15 DAIANA-7 Most Recent (0-): 15 CGI-I Most Recent: 4 = No Change Q-LES-Q-SF Most Recent: 45 Reviewed: TMS Tech Note Reviewed Verification: I have reviewed the TMS Aircraft Maintenance Instructor Note and agree with the contents. The patient remains a candidate to continue TMS treatment per protocol.
--- NOTE | 2020-09-29 17:26 | HO.TMSDAILY2 ---
TMS Daily Progress Note Daily TMS Progress Note Date of Service: 09/30/20 Week #: 7 Treatment #(-): 31 PHQ-9 Pre-Treatment (-): 18 PHQ-9 Most Recent (10-19): 10 DAIANA-7 Pre-Treatment (0-21): 15 DAIANA-7 Most Recent (0-): 15 CGI-I Most Recent: 4 = No Change Q-LES-Q-SF Most Recent: 45 Reviewed: TMS Tech Note Reviewed Verification: I have reviewed the TMS Telecom Sales Consultant Note and agree with the contents. The patient remains a candidate to continue TMS treatment per protocol.
--- NOTE | 2020-09-30 09:39 | HO.TMSDAILY2 ---
TMS Daily Progress Note Daily TMS Progress Note Date of Service: 10/03/20 Week #: 7 Treatment #(-): 32 PHQ-9 Pre-Treatment (-): 18 PHQ-9 Most Recent (10-19): 10 DAIANA-7 Pre-Treatment (0-21): 15 DAIANA-7 Most Recent (0-): 15 CGI-I Most Recent: 4 = No Change Q-LES-Q-SF Most Recent: 45 Reviewed: TMS Tech Note Reviewed Verification: I have reviewed the TMS Industrial Engineering Intern Note and agree with the contents. The patient remains a candidate to continue TMS treatment per protocol.
--- NOTE | 2020-10-03 22:24 | HO.TMSDAILY2 ---
TMS Daily Progress Note Daily TMS Progress Note Date of Service: 10/03/20 Week #: 7 Treatment #(-): 33 PHQ-9 Pre-Treatment (-): 18 PHQ-9 Most Recent (10-19): 10 DAIANA-7 Pre-Treatment (0-21): 15 DAIANA-7 Most Recent (0-): 15 CGI-I Most Recent: 4 = No Change Q-LES-Q-SF Most Recent: 45 Reviewed: TMS Tech Note Reviewed Verification: I have reviewed the TMS Shredder Operator Note and agree with the contents. The patient remains a candidate to continue TMS treatment per protocol.
--- NOTE | 2020-10-04 22:58 | HO.TMSDAILY2 ---
TMS Daily Progress Note Daily TMS Progress Note Date of Service: 10/04/20 Week #: 8 Treatment #(-): 34 PHQ-9 Pre-Treatment (-): 18 PHQ-9 Most Recent (10-19): 10 DAIANA-7 Pre-Treatment (0-21): 15 DAIANA-7 Most Recent (0-): 15 CGI-I Most Recent: 4 = No Change Q-LES-Q-SF Most Recent: 45 Reviewed: TMS Tech Note Reviewed Verification: I have reviewed the TMS Programming Development Project Manager Note and agree with the contents. The patient remains a candidate to continue TMS treatment per protocol.
--- NOTE | 2020-10-05 09:44 | P.PNPS_ITS ---
TMS Daily Progress Note Daily TMS Progress Note Date of Service: 10/05/20 Week #: 8 Treatment #(10-22): 35 PHQ-9 Pre-Treatment (-): 18 PHQ-9 Most Recent (10-19): 10 DAIANA-7 Pre-Treatment (0-21): 15 DAIANA-7 Most Recent (0-): 15 CGI-I Most Recent: 4 = No Change Q-LES-Q-SF Most Recent: 45 Reviewed: TMS Tech Note Reviewed Verification: I have reviewed the TMS Cutting Machine Fixer Note and agree with the contents. The patient remains a candidate to continue TMS treatment per protocol.
--- NOTE | 2020-10-06 18:29 | HO.TMSDAILY2 ---
TMS Daily Progress Note Daily TMS Progress Note Date of Service: 10/06/20 Week #: 8 Treatment #(-): 36 PHQ-9 Pre-Treatment (-): 18 PHQ-9 Most Recent (10-19): 10 DAIANA-7 Pre-Treatment (0-21): 15 DAIANA-7 Most Recent (0-): 15 CGI-I Most Recent: 4 = No Change Q-LES-Q-SF Most Recent: 45 Reviewed: TMS Tech Note Reviewed Verification: I have reviewed the TMS Opinion Polls Survey Worker Note and agree with the contents. The patient remains a candidate to continue TMS treatment per protocol.
--- NOTE | 2020-10-28 08:21 | P.PNPSO_ITS ---
Subjective Subjective Date of Service: 10/26/20 Reason For Visit: depression Interim History: Pt reports Trileptal caused him to develop pneumonitis. We will taper. Pt currently on Prednisone tapering TMS is completed. Reports anxiety, feeling shakey Side effects from medications: Yes (Reports pneumonitis from Trileptal) Review of Systems Respiratory: Reports other (new diagnosis of pneumonitis) Psychiatric: Reports anxiety and Reports depression Mental Status Exam Mental Status Exam Patient Orientation: Person, Place, Time and Situation Level of Consciousness: Awake and Alert Patient Behavior: Cooperative Mood Description: Anxious Affect Description: Flat Patient Cognition Impaired: No Ability to Follow Directions: Good Speech Pattern: Clear and Spontaneous Speech Memory Description: Intact Hallucinations: None Delusions: Not Present Thought Process: Intact Thought Content: positive for Intact Depressive Symptoms: Increased Anxiety Judgement: Good Discharge Plan Discharge Attending provider: Nahco Peña Medications: Continued oxcarbazepine [Trileptal] 300 mg tablet 300 mg PO BID Qty: 60 RF: 1 Trintellix 20 mg tablet 20 mg PO DAILY Qty: 90 RF: 0 No Action ProAir RespiClick 90 mcg/actuation aerosol powdr breath activated 2 inh inhalation Q4-6H PRN (Reason: Shortness Of Breath) Qty: 1 RF: 3 levalbuterol tartrate 45 mcg/actuation HFA aerosol inhaler 2 puff inhalation Q4H PRN (Reason: shortness of breath or wheezing) Qty: 15 RF: 11 prednisone 20 mg tablet 20 mg PO DAILY 10 Days Qty: 15 RF: 0 albuterol sulfate 2.5 mg /3 mL (0.083 %) solution for nebulization 3 ml inhalation Q6H PRN (Reason: Shortness Of Breath) RF: 0 famotidine 40 mg tablet 1 tab PO BEDTIME RF: 0 amlodipine 10 mg tablet 1 tab PO DAILY RF: 0 Spiriva Respimat 2.5 mcg/actuation mist 2 puff PO DAILY RF: 0 Zyprexa 5 mg 5 mg PO BEDTIME RF: 0 Zyprexa 2.5 mg 2.5 mg PO DAILY PRN (Reason: Anxiety) RF: 0 propranolol 10 mg tablet 1 tab PO TID Qty: 270 RF: 0 olanzapine 2.5 mg tablet 2.5 mg PO DAILY PRN (Reason: anxiety) Qty: 90 RF: 0 olanzapine [Zyprexa] 5 mg tablet 5 mg PO BEDTIME Qty: 90 RF: 0 lorazepam 1 mg tablet 1 mg PO TID PRN (Reason: anxiety) Qty: 90 RF: 0 mirtazapine 7.5 mg tablet 3.75 mg PO BEDTIME Qty: 15 RF: 0 Trelegy Ellipta 100-62.5-25 mcg blister with device 1 inh inhalation DAILY 30 Days Qty: 60 RF: 11 ascorbic acid (vitamin C) 1,000 mg tablet 500 mg PO BID RF: 0 Spectravite Adult 50 Plus 0.4-300-250 mg-mcg-mcg tablet 1 tab PO DAILY RF: 0 zinc acetate 25 mg (zinc) capsule 25 mg PO DAILY RF: 0 cholecalciferol (vitamin D3) 25 mcg (1,000 unit) capsule 50 mcg PO DAILY RF: 0 dicyclomine 10 mg capsule 30 mg PO TID RF: 0 levalbuterol HCl 1.25 mg/3 mL solution for nebulization inhalation RF: 0 Flublok Quad [id number] (PF) 180 mcg (45 mcg x 4)/0.5 mL syringe IM RF: 0 fluticasone propion-salmeterol [Advair Diskus] 500-50 mcg/dose blister with device 1 inh inhalation BID 30 Days Qty: 60 RF: 11 prednisone 20 mg tablet 20 mg PO DAILY 10 Days Qty: 15 RF: 0 prednisone 10 mg tablet 10 mg PO DAILY 30 Days Qty: 30 RF: 4 Assessment & Plan Assessment & Plan (1) Major depressive disorder, recurrent episode, severe with anxious distress: Status: Acute Code(s): F33.2 - Major depressive disorder, recurrent severe without psychotic features Assessment and Plan: -Trileptal taper due to recent diagnosis of pneumonitis. Currently reports taking 300 mg bid. Plan: 300 mg daily for 3 days, then 150 mg daily for 3 days, then stop. -Change Olanzapine dosing to 5 mg bid -Pt not using Ativan 1 mg tid, using prn only -Begin Remeron 3.75 mg hs. -Pt has intake appt with [facility] 11/02/20. Greater than 50% of the session was spent on counseling and/or coordination of care Telehealth Telehealth Location of provider rendering services: practice address Location of patient: address on file Patient Identification confirmed using: Name, : Yes Telehealth method: voice only Patient verbally consented to treatment: Yes Patient verbally consented to billing insurance company: Yes Patient informed of any privacy concerns related to visit: Yes Time spent with patient (mins): 20
== END 2020-10-06 15:00 | disposition home or self-care (01) ==
LOC: HO.PTMS 13:00
PROVIDERS: Visit Provider Psychiatry & Neurology Psychiatry
DX: F33.2 Major depressive disorder, recurrent severe without psychotic features (principal)
CPT/HCPCS: 90867; 90868; 99201

== ENCOUNTER → 2020-10-13 13:41 | Outpatient (BNVA) | payer OTHER, SELFPAY | PROVIDERS: PCP Internal Medicine Sports Medicine; Visit Provider Hospitalist ==

== ENCOUNTER 2020-10-26 | Outpatient (REF) | payer MEDICARE, SELFPAY | END 2020-10-26 00:01 | disposition home or self-care (01) | LOC: HO.VC | PROVIDERS: Visit Provider Internal Medicine | DX: Z23 Encounter for immunization (principal) | CPT/HCPCS: 0011A ==

== ENCOUNTER 2020-11-09 11:22 | Outpatient (REF) | payer OTHER, SELFPAY ==
[2020-11-09 12:45] LABS: Anion Gap 12 (12-20); Blood Urea Nitrogen 13 mg/dL (9-16); Calcium 8.6 mg/dL (8.4-10.2); Carbon Dioxide 27 mmol/L (22-29); Chloride 103 mmol/L (96-108); Estimated Glomerular Filt Rate > 60; Glucose Random 100 mg/dL (60-115); Potassium 4.3 mmol/L (3.3-5.1); Sodium 138 mmol/L (135-145)
[2020-11-09 13:09] LABS: SARS COV2 IgG Negative (Negative)
[2020-11-09 13:30] LABS: Erythrocyte Sedimentation Rate 11 MM/HR (0-15)
[2020-11-10 13:42] LABS: Anti Nuclear Antibody Screen NEGATIVE (NEGATIVE)
[2020-11-11 13:21] LABS: Cyclic Citrullinated Peptide <16 UNITS
[2020-11-14 14:16] LABS: Asperg fumigatus Precip Abs NEGATIVE (NEGATIVE); Micropoly faeni Abs NEGATIVE (NEGATIVE); Pigeon serum Abs NEGATIVE (NEGATIVE); Saccharo pora viridis Abs NEGATIVE (NEGATIVE); Thermo candidus Abs NEGATIVE (NEGATIVE); Thermoa vulgaris #1 NEGATIVE (NEGATIVE)
== END 2020-11-09 11:23 | disposition home or self-care (01) ==
LOC: HO.LAB 11:22
PROVIDERS: Visit Provider Hospitalist
DX: J18.9 Pneumonia, unspecified organism (principal); Z20.822 Contact with and (suspected) exposure to COVID-19
CPT/HCPCS: 36415; 80048; 82785; 85652; 86003; 86038; 86039; 86200; 86331; 86606; 86609; 86769

== ENCOUNTER 2020-11-23 | Outpatient (REF) | payer OTHER, SELFPAY | END 2020-11-23 00:01 | disposition home or self-care (01) | LOC: HO.VC | PROVIDERS: Visit Provider Internal Medicine | DX: Z23 Encounter for immunization (principal) | CPT/HCPCS: 0012A ==

== ENCOUNTER → 2020-11-24 13:23 | Outpatient (BNVA) | payer OTHER, SELFPAY | PROVIDERS: PCP Internal Medicine Sports Medicine; Visit Provider Hospitalist ==

== ENCOUNTER 2020-12-23 12:48 | Outpatient (REF) | payer OTHER, SELFPAY ==
--- NOTE | 2020-12-23 17:23 | PFT_ITS ---
FLOWS: FEV1 of 48% of predicted at 1.11 L. FVC 81% of predicted at 3.24 L. FEV1 to FVC ratio of 0.34. Positive bronchodilator response. LUNG VOLUMES: Total lung capacity 110% of predicted at 7.10 L. Residual volume 177% of predicted at 4.01 L. Slow vital capacity 74% of predicted at 3.09 L. Expiratory reserve volume 66% of predicted at 0.74 L. Diffusion capacity is moderately decreased. IMPRESSION: Severe obstructive ventilatory defect with positive bronchodilator response. Increased residual volume suggests air trapping. Decreased diffusion capacity suggests emphysema. In comparison to pulmonary function test performed in October of 2019, FEV1 has increased by 0.35 L; FVC has increased by 1.21 L; total lung capacity has increased by 0.96 L; residual volume has decreased by 0.35 L; slow vital capacity has been increased by 0.82 L; expiratory reserve volume has been without significant changes; diffusion capacity has increased by 3.31 mL per minute per mmHg. MD ARTURO Bullard/LORIL / [id number]
== END 2020-12-23 12:49 | disposition home or self-care (01) ==
LOC: HO.RESP 12:48
PROVIDERS: PCP Internal Medicine Sports Medicine; Visit Provider Hospitalist
DX: J18.9 Pneumonia, unspecified organism (principal); J43.2 Centrilobular emphysema
CPT/HCPCS: 94060; 94727; 94729

== ENCOUNTER → 2020-12-26 13:59 | Outpatient (BNVA) | payer OTHER, SELFPAY | PROVIDERS: PCP Internal Medicine Sports Medicine; Visit Provider Hospitalist ==

== ENCOUNTER 2021-01-10 13:02 | Outpatient (REF) | payer OTHER, SELFPAY ==
--- NOTE | ~2021-01-10 | CT_ITS ---
EXAMINATION: CT CHEST SCREENING CLINICAL INFORMATION: Nicotine dependence, cigarettes. COMPARISON: CT chest 11/11/2019 TECHNIQUE: Multidetector volumetric CT imaging of the chest is performed without contrast using low dose technique. Additional 2D coronal and sagittal reformatted images and axial 3D maximum intensity projection (MIP) images are generated on the CT workstation. This CT examination was performed using dose optimization techniques as appropriate, variously including the following: *Automated exposure control *Adjustment of mA and/or kV according to patient size (this includes techniques or standardized protocols for targeted exams where dose is matched to indication/reason for exam; i.e. extremities or head) *Use of iterative reconstruction technique DLP: 56 mGy-cm FINDINGS: LUNGS: There are diffuse centrilobular emphysematous changes in both lungs with large bullous disease in both lung apices. There is a subpleural 2 mm nodule right lower lobe, axial image 374/6, and a 1 mm nodule right lower lobe subpleural location, axial image 330/6. These are new since the last study. No additional nodules seen. MEDIASTINUM: The thyroid lobes are symmetrical and normal. The central trachea and the bronchi are widely patent. There are small shotty lymph nodes in the mediastinum. There is atherosclerotic calcification of aortic valve and coronary arteries. No pericardial effusion seen. PLEURA: There is no pleural effusion. No pleural mass or thickening. AXILLA: No lymphadenopathy. UPPER ABDOMEN: Visualized liver, spleen, pancreas and bilateral adrenal glands are unremarkable. The gallbladder has been surgically removed. OSSEOUS STRUCTURES: No lytic or sclerotic process seen. There is mild ventral spondylosis mid dorsal spine. CT/CT lung screening IMPRESSION: Centrilobular emphysema without acute pneumonic process. 1 mm nodule in the right lower lobe, new. Likely benign. ASSESSMENT: Lung-RADS category 2: Benign RECOMMENDATION: Low dose annual CT chest
== END 2021-01-10 13:03 | disposition home or self-care (01) ==
LOC: HO.CT 13:02
PROVIDERS: Visit Provider Surgery
DX: Z12.2 Encounter for screening for malignant neoplasm of respiratory organs (principal); F17.210 Nicotine dependence, cigarettes, uncomplicated
CPT/HCPCS: 71271

== ENCOUNTER → 2021-01-20 11:18 | Outpatient (BNVA) | payer OTHER, SELFPAY | PROVIDERS: PCP Internal Medicine Sports Medicine; Visit Provider Hospitalist | DX: J44.9 Chronic obstructive pulmonary disease, unspecified (principal) ==

== ENCOUNTER 2021-02-10 08:56 | Inpatient (IN) | payer OTHER, SELFPAY ==
[2021-02-10 09:21] VITALS: BP 150/84; PULSE 84; RESP 17; TEMP 37.1; O2SAT 97; BMI 29.0
--- NOTE | 2021-02-10 09:39 | ED_ITS ---
HPI - Psych General Chief Complaint: Psychiatric Symptoms Stated Complaint: crisis Time Seen by Provider: 02/10/21 09:26 Source: patient Mode of arrival: ambulatory Limitations: no limitations History of Present Illness HPI Narrative: Patient with history of depression, COPD, hypertension came for increased depression and anxiety already seen as outpatient plan for inpatient admission patient. Patient denied any suicidal ideation tearful while talking asking for help MD complaint: feels depressed Onset (ago): month(s) Duration: constant History of same: Yes Relieving factors: none Exacerbating factors: none Associated psychiatric symptoms: depression Associated symptoms: denies other symptoms Related Data Home Medications Medication Instructions Recorded Confirmed amlodipine 1 tab PO DAILY 07/08/20 02/10/21 famotidine 1 tab PO BEDTIME 07/08/20 02/10/21 tiotropium bromide [Spiriva 2 puff PO DAILY 07/08/20 01/20/21 Respimat] ascorbic acid (vitamin C) 1,000 mg 1,000 mg PO DAILY 07/21/20 02/10/21 tablet cholecalciferol (vitamin D3) 25 50 mcg PO DAILY cap 07/21/20 02/10/21 mcg (1,000 unit) capsule mopwyzdp-srd-hepsa acid 0.4 1 tab PO DAILY 07/21/20 12/26/20 mg-lycopene 300 mcg-lutein 250 mcg tablet zinc acetate 25 mg (zinc) capsule 25 mg PO DAILY 07/21/20 01/20/21 dicyclomine 10 mg capsule 30 mg PO TID 12/26/20 02/10/21 famotidine [Pepcid] 20 mg PO TID 02/10/21 02/10/21 fluticasone propion-salmeterol 1 inh INHALATION BID 02/10/21 02/10/21 [Advair Diskus] levalbuterol HCl [Xopenex] 1.25 mg INHALATION Q4-6H PRN 02/10/21 02/10/21 multivitamin-iron (hematinic) 1 tab PO DAILY 02/10/21 02/10/21 [Spectravite] tiotropium bromide [Spiriva 2 puff INHALATION DAILY 02/10/21 02/10/21 Respimat] valproate sodium 02/10/21 Previous Rx's Medication Instructions Recorded albuterol sulfate 90 mcg/actuation 2 inh INHALATION Q4-6H PRN #1 ea 07/27/20 breath activated powder inhaler levalbuterol tartrate 45 2 puff INHALATION Q4H PRN #15 g 07/27/20 mcg/actuation aerosol inhaler prednisone 20 mg tablet 20 mg PO DAILY 10 Days #15 tab 08/29/20 prednisone 20 mg tablet 20 mg PO DAILY 10 Days #15 tab 10/10/20 prednisone 10 mg tablet 10 mg PO DAILY 30 Days #30 tab 10/13/20 azithromycin 250 mg tablet 250 mg PO 3XW 28 Days #12 tab 12/26/20 lorazepam 1 mg PO TID PRN #90 tab 01/18/21 olanzapine [Zyprexa] 5 mg PO BEDTIME #90 tab 01/18/21 prednisone 10 mg tablet 10 mg PO DAILY 30 Days #30 tab 01/20/21 propranolol 1 tab PO TID #270 tab 02/01/21 Allergies Allergy/AdvReac Type Severity Reaction Status Date / Time lamotrigine [From LAMICTAL] Allergy Severe agitation Verified 01/20/21 11:33 and anxiety with titration codeine [CODEINE] Allergy Intermediate INSOMNIA Verified 01/20/21 11:33 Penicillins [PENICILLINS] Allergy Intermediate RASH Verified 01/20/21 11:33 epinephrine [EPINEPHRINE] AdvReac Intermediate Hypertensio Verified 01/20/21 11:33 n escitalopram [From LEXAPRO] AdvReac Intermediate NIGHTMARES Verified 01/20/21 11:33 sertraline [From ZOLOFT] AdvReac Intermediate NIGHTMARES Verified 01/20/21 11:33 sulfamethoxazole AdvReac Intermediate STOMACH Verified 01/20/21 11:33 [From BACTRIM] UPSET Review of Systems Review of Systems: Constitutional : No Weight loss, No Fever, No Chills ENT/Mouth : No sore throat, No Rhinorrhea Eyes: No Eye Pain, No Swelling Cardiovascular : No Chest Pain, no palpitations Respiratory : No Cough, No Sputum, no shortness of breath Gastrointestinal : no Nausea, No Vomiting, No Diarrhea, No abdominal Pain, no black stools Genitourinary : No Dysuria, No Urinary Frequency Musculoskeletal : No joint pain, No Myalgias, No Joint Swelling Skin : No Skin Lesions, No rash Neuro : No Weakness, No Numbness, No Dizziness, No Headache Psych : + Anxiety/Panic, + Depression Heme/Lymph: No Bruising, No Lymphadenopathy Endocrine : No Polyuria, No Polydipsia All other systems reviewed and are negative [facility] Past Medical History Medical History Abnormal nuclear stress test CAD (coronary artery disease) Chronic respiratory failure COPD (chronic obstructive pulmonary disease) Depression HLD (hyperlipidemia) Major depressive disorder, recurrent episode, severe with anxious distress Pneumonitis Pre-op evaluation Preop cardiovascular exam Smoking Surgical History Stented coronary artery Family History Family History Father No problems noted. Mother No problems noted. Social History Social History Household Members: Spouse and Children Alcohol intake: never Smoking Status: Former smoker Years Smoked: 40 Smoked in Last 30 Days: No Second Hand Smoke Exposure: No Use of substances other than those prescribed or required for medical reasons: No Advance Directives: No Advance Directives Information Provided: No Healthcare Proxy: No Guardian: No Physical Exam Vital Signs: Vital Signs: Last Vital Signs Temp 98.7 F 02/10/21 09:21 Pulse 84 02/10/21 09:21 Resp 17 02/10/21 09:21 BP 150/84 H 02/10/21 09:21 Pulse Ox 97 02/10/21 09:21 Body Mass Index 29.0 Appearance: Alert. Oriented X3. No acute distress. Eyes: PERRLA, No Nystagmus ENT: Pharynx normal. Oral Mucosa moist Neck: Normal inspection. Neck supple. CVS: Normal heart rate and rhythm. Pulses normal. Respiratory: No respiratory distress. Equal air entry bilateral, no wheezing/rales/rhonchi Abdomen: Soft and nontender. Bowel sounds are present, no mass palpable, no CVA tenderness Skin: Skin warm and dry. Normal skin color. Normal skin turgor. Extremities: No lower extremity edema. No calf tenderness Neuro: Oriented X 3. No motor deficit. No sensory deficit.No cerebellar signs , cranial nerves II-XII intact MDM - Psych Lab Data Attestation: I reviewed the patient's lab results. Result diagrams: 02/10/21 10:12 02/10/21 10:12 Labs: Lab Results 02/10/21 02/10/21 02/10/21 Range/Units 10:12 10:12 10:12 WBC 10.9 H (4.8-10.8) X10*3/uL RBC 5.23 (4.60-5.80) X10*6/uL Hgb 15.8 (14.0-18.0) g/dl Hct 48.1 (42-52) % MCV 92.0 (80-98) fL MCH 30.2 (27.0-33.0) pg MCHC 32.8 (31.0-36.0) g/dl RDW 12.5 (11.0-16.0) % Plt Count 222 (160-400) X10*3/uL MPV 8.6 L (9.4-12.4) fL Immature Gran % (Auto) 0.5 H (0.0-0.4) % Neut % (Auto) 51.4 (45-73) % Lymph % (Auto) 37.3 (20-40) % Montgomery % (Auto) 9.2 (2-11) % Eos % (Auto) 1.1 (0-4) % Baso % (Auto) 0.5 (0-2) % Lymph # (Auto) 4.1 (1.2-4.9) X10*3/uL Montgomery # (Auto) 1.0 (0.1-1.2) X10*3/uL Eos # (Auto) 0.1 (0.0-0.4) X10*3/uL Baso # (Auto) 0.1 (0.0-0.2) X10*3/uL Abs Immat Gran (auto) 0.05 H (0.00-0.03) X10*3/uL Absolute Neuts (auto) 5.6 (2.0-8.3) X10*3/uL Absolute Nucleated RBC 0.000 (0.0-0.012) X10*3/uL Nucleated RBC % (auto) 0.0 (0.0-0.2) /100WBC Sodium 143 (135-145) mmol/L Potassium 4.0 (3.3-5.1) mmol/L Chloride 104 (96-108) mmol/L Carbon Dioxide 31 H (22-29) mmol/L Anion Gap 12 (12-20) BUN 17 H (9-16) mg/dL Creatinine 0.96 (0.5-1.4) mg/dL Estim Creat Clear Calc 75.2 Estimated GFR > 60 Random Glucose 78 (60-115) mg/dL Calcium 9.7 D (8.4-10.2) mg/dL Total Bilirubin 0.5 (0.0-1.0) mg/dL AST 12 (5-37) U/L ALT 20 (0-40) U/L Alkaline Phosphatase 44 (39-117) U/L Total Protein 7.1 (6.5-8.0) g/dL Albumin 4.4 (3.5-5.0) g/dL Urine Color Urine Appearance Urine pH (5.0-8.0) Ur Specific Horton (1.005-1.025) Urine Protein (NEG-TRACE) MG/DL Urine Glucose (UA) (NEG) MG/DL Urine Ketones (NEG) MG/DL Urine Blood (NEG) Urine Nitrite (NEG) Ur Leukocyte Esterase (NEG) Urine RBC (0) /HPF Urine WBC (0-4) /HPF Ur Squamous Epith Cells /LPF Urine Bacteria /LPF COVID-19 (MARRY) Negative (Negative) COVID-19 Clin Com See Note 02/10/21 Range/Units 11:28 WBC (4.8-10.8) X10*3/uL RBC (4.60-5.80) X10*6/uL Hgb (14.0-18.0) g/dl Hct (42-52) % MCV (80-98) fL MCH (27.0-33.0) pg MCHC (31.0-36.0) g/dl RDW (11.0-16.0) % Plt Count (160-400) X10*3/uL MPV (9.4-12.4) fL Immature Gran % (Auto) (0.0-0.4) % Neut % (Auto) (45-73) % Lymph % (Auto) (20-40) % Montgomery % (Auto) (2-11) % Eos % (Auto) (0-4) % Baso % (Auto) (0-2) % Lymph # (Auto) (1.2-4.9) X10*3/uL Montgomery # (Auto) (0.1-1.2) X10*3/uL Eos # (Auto) (0.0-0.4) X10*3/uL Baso # (Auto) (0.0-0.2) X10*3/uL Abs Immat Gran (auto) (0.00-0.03) X10*3/uL Absolute Neuts (auto) (2.0-8.3) X10*3/uL Absolute Nucleated RBC (0.0-0.012) X10*3/uL Nucleated RBC % (auto) (0.0-0.2) /100WBC Sodium (135-145) mmol/L Potassium (3.3-5.1) mmol/L Chloride (96-108) mmol/L Carbon Dioxide (22-29) mmol/L Anion Gap (12-20) BUN (9-16) mg/dL Creatinine (0.5-1.4) mg/dL Estim Creat Clear Calc Estimated GFR Random Glucose (60-115) mg/dL Calcium (8.4-10.2) mg/dL Total Bilirubin (0.0-1.0) mg/dL AST (5-37) U/L ALT (0-40) U/L Alkaline Phosphatase (39-117) U/L Total Protein (6.5-8.0) g/dL Albumin (3.5-5.0) g/dL Urine Color YELLOW Urine Appearance CLEAR Urine pH 6.0 (5.0-8.0) Ur Specific Horton 1.015 (1.005-1.025) Urine Protein NEG (NEG-TRACE) MG/DL Urine Glucose (UA) NEG (NEG) MG/DL Urine Ketones 5 (NEG) MG/DL Urine Blood NEG (NEG) Urine Nitrite NEG (NEG) Ur Leukocyte Esterase NEG (NEG) Urine RBC 0 (0) /HPF Urine WBC 0 (0-4) /HPF Ur Squamous Epith Cells NONE /LPF Urine Bacteria NONE /LPF COVID-19 (MARRY) (Negative) COVID-19 Clin Com ECG Data Attestation: I personally reviewed and interpreted this ECG as follows: Interpretation: Normal sinus rhythm heart rate 77 beats per minute normal intervals normal axis, no acute ST T wave changes impression normal EKG Discharge Plan Discharge Prescriptions: No Action ProAir RespiClick 90 mcg/actuation aerosol powdr breath activated 2 inh inhalation Q4-6H PRN (Reason: Shortness Of Breath) Qty: 1 RF: 3 levalbuterol tartrate 45 mcg/actuation HFA aerosol inhaler 2 puff inhalation Q4H PRN (Reason: shortness of breath or wheezing) Qty: 15 RF: 11 prednisone 20 mg tablet 20 mg PO DAILY 10 Days Qty: 15 RF: 0 famotidine 40 mg tablet 1 tab PO BEDTIME RF: 0 amlodipine 10 mg tablet 1 tab PO DAILY RF: 0 Spiriva Respimat 2.5 mcg/actuation mist 2 puff PO DAILY RF: 0 olanzapine [Zyprexa] 5 mg tablet 5 mg PO BEDTIME Qty: 90 RF: 0 lorazepam 1 mg tablet 1 mg PO TID PRN (Reason: anxiety) Qty: 90 RF: 0 propranolol 10 mg tablet 1 tab PO TID Qty: 270 RF: 0 famotidine [Pepcid] 20 mg Tablet 20 mg PO TID RF: 0 fluticasone propion-salmeterol [Advair Diskus] 500-50 mcg/dose Blister With Device 1 inh INHALATION BID RF: 0 levalbuterol HCl [Xopenex] 1.25 mg/3 mL Solution For Nebulization 1.25 mg INHALATION Q4-6H PRN (Reason: Shortness Of Breath Or Wheezing) RF: 0 Spectravite Tablet 1 tab PO DAILY RF: 0 Spiriva Respimat 1.25 mcg/actuation Mist 2 puff INHALATION DAILY RF: 0 valproate sodium RF: 0 prednisone 10 mg tablet 10 mg PO DAILY 30 Days Qty: 30 RF: 2 azithromycin 250 mg tablet 250 mg PO 3XW 28 Days Qty: 12 RF: 6 ascorbic acid (vitamin C) 1,000 mg tablet 1,000 mg PO DAILY RF: 0 Spectravite Adult 50 Plus 0.4-300-250 mg-mcg-mcg tablet 1 tab PO DAILY RF: 0 zinc acetate 25 mg (zinc) capsule 25 mg PO DAILY RF: 0 cholecalciferol (vitamin D3) 25 mcg (1,000 unit) capsule 50 mcg PO DAILY RF: 0 dicyclomine 10 mg capsule 30 mg PO TID RF: 0 prednisone 20 mg tablet 20 mg PO DAILY 10 Days Qty: 15 RF: 0 prednisone 10 mg tablet 10 mg PO DAILY 30 Days Qty: 30 RF: 4
--- NOTE | 2021-02-10 09:41 | ECG_ITS ---
Test Reason : MED CLEARANCE Blood Pressure : / mmHG Vent. Rate : 077 BPM Atrial Rate : 077 BPM P-R Int : 144 ms QRS Dur : 086 ms QT Int : 370 ms P-R-T Axes : 080 031 061 degrees QTc Int : 418 ms Normal sinus rhythm Normal ECG When compared with ECG of 04-AUG-2019 14:49, No significant change was found Referred By: Brandan Peterson Electronically Signed By:ZION VILLEDA MD
[2021-02-10] MEDS: LORazepam 1 MG TABLET PO (09:43)
[2021-02-10 10:18] LABS: MANUAL DIFF FLAG NO
[2021-02-10 10:19] LABS: Basophils Absolute Auto 0.1 X10*3/uL (0.0-0.2); Basophils Percent Auto 0.5 % (0-2); Eosinophils Absolute Auto 0.1 X10*3/uL (0.0-0.4); Eosinophils Percent Auto 1.1 % (0-4); Hematocrit 48.1 % (42-52); Hemoglobin 15.8 g/dl (14.0-18.0); Imm Gran Abs Auto 0.05 X10*3/uL (0.00-0.03); Imm Gran Pct Auto 0.5 % (0.0-0.4); Lymphocytes Absolute Auto 4.1 X10*3/uL (1.2-4.9); Lymphocytes Percent Auto 37.3 % (20-40); Mean Corpuscular HGB Conc 32.8 g/dl (31.0-36.0); Mean Corpuscular Hemoglobin 30.2 pg (27.0-33.0); Mean Platelet Volume 8.6 fL (9.4-12.4); Monocytes Percent Auto 9.2 % (2-11); Neutrophils Absolute Auto 5.6 X10*3/uL (2.0-8.3); Neutrophils Percent Auto 51.4 % (45-73); Platelet Count 222 X10*3/uL (160-400); Red Blood Count 5.23 X10*6/uL (4.60-5.80); Red Cell Distribution Width 12.5 % (11.0-16.0); White Blood Count 10.9 X10*3/uL (4.8-10.8)
[2021-02-10 10:33] LABS: COVID-19 Test Negative (Negative)
[2021-02-10 10:51] LABS: Alanine Aminotransferase 20 U/L (0-40); Albumin Level 4.4 g/dL (3.5-5.0); Alkaline Phosphatase 44 U/L (39-117); Anion Gap 12 (12-20); Aspartate Amino Transferase 12 U/L (5-37); Bilirubin Total 0.5 mg/dL (0.0-1.0); Blood Urea Nitrogen 17 mg/dL (9-16); Calcium 9.7 mg/dL (8.4-10.2); Carbon Dioxide 31 mmol/L (22-29); Chloride 104 mmol/L (96-108); Creatinine Clr Calc Pharmacy 75.2; Estimated Glomerular Filt Rate > 60; Glucose Random 78 mg/dL (60-115); Sodium 143 mmol/L (135-145); Total Protein 7.1 g/dL (6.5-8.0)
[2021-02-10 11:43] LABS: Glucose Urine UA NEG (NEG); Leukocyte Esterase Urine NEG (NEG); Nitrite Urine NEG (NEG); Specific Gravity - Urine 1.015 (1.005-1.025); Urine Blood NEG (NEG); Urine Ketones 5 MG/DL (NEG); Urine Protein NEG (NEG-TRACE)
[2021-02-10 11:45] LABS: Appearance Urine CLEAR; Color Urine YELLOW
[2021-02-10 11:50] LABS: RBC Urine 0 /HPF (0); WBC Urine 0 /HPF (0-4)
--- NOTE | 2021-02-10 11:52 | PC.NURSE ---
nurse to nurse report given to m5 rn
[2021-02-10 12:15] LABS: Amphetamine Screen Urine Not Detected (Not Detect); Barbiturates, Urine Not Detected (Not Detect); Benzodiazepines Screen Urine Not Detected (Not Detect); Cannabinoid Screen Urine Not Detected (Not Detect); Cocaine Screen Urine Not Detected (Not Detect); Opiate Screen Urine Not Detected (Not Detect); Phencyclidine Screen Urine Not Detected (Not Detect)
--- NOTE | 2021-02-10 12:49 | ECG_ITS ---
Test Reason : ASHD, ? PREOP Blood Pressure : / mmHG Vent. Rate : 088 BPM Atrial Rate : 088 BPM P-R Int : 144 ms QRS Dur : 088 ms QT Int : 346 ms P-R-T Axes : 083 029 067 degrees QTc Int : 418 ms Normal sinus rhythm Normal ECG When compared with ECG of 10-FEB-2021 10:57, No significant change was found Referred By: Nacho Peña Electronically Signed By:ZION VILLEDA MD
[2021-02-10] MEDS: Magnesium Hydrox/Alum Hydrox 30 ML ORAL.SUSP PO (14:02)
[2021-02-10] MEDS: Albuterol Sulfate 90 MCG 8 GM INHALER 2 PUFF INHALE (14:32)
--- NOTE | 2021-02-10 15:31 | HO.PSYADMNOT ---
HPI Chief Complaint: depression Sources of Information: patient interviewed and chart reviewed HPI Subjective Notes: Conditional Voluntary Guardianship: No Medical Problems Affecting Mental Status: No Narrative: Patient is a 71-year-old male patient outpatient of [facility] nurse practitioner Patient has a history of recurrent depression anxiety complicated by COPD. Has a history of past good response to ECT but has been complicated by worsening COPD and ASHD. Have avoided retreating with ECT secondary to above. He has failed trial of TMS he multiple SSRIs most recently Trintellix mirtazapine now discontinued. The question has been raised regarding the possibility of an MAO inhibitor. Patient most recently has been on lorazepam 1 t.i.d. olanzapine 5 mg at bedtime 2.5 mg the morning as needed. Patient remains paralyzed with anxiety hopeless helpless depressed marked difficulty in functioning concentration ability to enjoy things became increasingly overwhelmed thoughts he might be better off but no clear plan of self-harm. No psychotic symptoms patient does have a history of past psychiatric hospitalization. 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 Past Psychiatric History: History of good response to ECT past history of panic disorder has not been able to stabilize now for number of years despite outpatient therapy counseling partial hospital ongoing treatment with a nurse practitioner Trina iverson Medical Evaluation Reviewed: Hospitalist Shaylaal Pending chronic copd recent prednisone PMFSH Medical History Abnormal nuclear stress test CAD (coronary artery disease) Chronic respiratory failure COPD (chronic obstructive pulmonary disease) Depression HLD (hyperlipidemia) Major depressive disorder, recurrent episode, severe with anxious distress Pneumonitis Pre-op evaluation Preop cardiovascular exam Smoking Surgical History Stented coronary artery Social History: 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 He has a supportive family including sister and mother Trauma History: no history of sexual or physical trauma Diagnostics Vital Signs (24Hr): Vital Signs - 24 hr 02/10/21 09:21 Temperature 98.7 F Pulse Rate 84 Respiratory Rate 17 Blood Pressure 150/84 H Pulse Oximetry 97 Body Mass Index 29.0 Labs Results: 02/10/21 10:12 02/10/21 10:12 Labs: Laboratory Results - last 48 hr 02/10/21 02/10/21 02/10/21 10:12 10:12 10:12 WBC 10.9 H RBC 5.23 Hgb 15.8 Hct 48.1 MCV 92.0 MCH 30.2 MCHC 32.8 RDW 12.5 Plt Count 222 MPV 8.6 L Immature Gran % (Auto) 0.5 H Neut % (Auto) 51.4 Lymph % (Auto) 37.3 Haakon % (Auto) 9.2 Eos % (Auto) 1.1 Baso % (Auto) 0.5 Lymph # (Auto) 4.1 Haakon # (Auto) 1.0 Eos # (Auto) 0.1 Baso # (Auto) 0.1 Abs Immat Gran (auto) 0.05 H Absolute Neuts (auto) 5.6 Absolute Nucleated RBC 0.000 Nucleated RBC % (auto) 0.0 Sodium 143 Potassium 4.0 Chloride 104 Carbon Dioxide 31 H Anion Gap 12 BUN 17 H Creatinine 0.96 Estim Creat Clear Calc 75.2 Estimated GFR > 60 Random Glucose 78 Calcium 9.7 D Total Bilirubin 0.5 AST 12 ALT 20 Alkaline Phosphatase 44 Total Protein 7.1 Albumin 4.4 Urine Color Urine Appearance Urine pH Ur Specific [place] Urine Protein Urine Glucose (UA) Urine Ketones Urine Blood Urine Nitrite Ur Leukocyte Esterase Urine RBC Urine WBC Ur Squamous Epith Cells Urine Bacteria Urine Opiates Screen Ur Barbiturates Screen Ur Phencyclidine Scrn Ur Amphetamines Screen U Benzodiazepines Scrn Urine Cocaine Screen U Marijuana (THC) Screen COVID-19 (MARRY) Negative COVID-19 Clin Com See Note 02/10/21 02/10/21 11:28 11:28 WBC RBC Hgb Hct MCV MCH MCHC RDW Plt Count MPV Immature Gran % (Auto) Neut % (Auto) Lymph % (Auto) [place] % (Auto) Eos % (Auto) Baso % (Auto) Lymph # (Auto) [place] # (Auto) Eos # (Auto) Baso # (Auto) Abs Immat Gran (auto) Absolute Neuts (auto) Absolute Nucleated RBC Nucleated RBC % (auto) Sodium Potassium Chloride Carbon Dioxide Anion Gap BUN Creatinine Estim Creat Clear Calc Estimated GFR Random Glucose Calcium Total Bilirubin AST ALT Alkaline Phosphatase Total Protein Albumin Urine Color YELLOW Urine Appearance CLEAR Urine pH 6.0 Ur Specific [place] 1.015 Urine Protein NEG Urine Glucose (UA) NEG Urine Ketones 5 Urine Blood NEG Urine Nitrite NEG Ur Leukocyte Esterase NEG Urine RBC 0 Urine WBC 0 Ur Squamous Epith Cells NONE Urine Bacteria NONE Urine Opiates Screen Not Detected Ur Barbiturates Screen Not Detected Ur Phencyclidine Scrn Not Detected Ur Amphetamines Screen Not Detected U Benzodiazepines Scrn Not Detected Urine Cocaine Screen Not Detected U Marijuana (THC) Screen Not Detected COVID-19 (MARRY) COVID-19 Clin Com Meds/Allergies Meds Home Medications Acetaminophen (Acetaminophen 325 Mg Tablet) 650 mg PO Q6H PRN PRN Reason: Headache/Pain Mild Scale (1-3) Al Hydroxide/Mg Hydroxide (Magnesium Hydrox/Alum Hydrox 30 Ml Oral.Susp) 30 ml PO Q6H PRN PRN Reason: Heartburn/Nausea Last Admin: 02/10/21 14:02 Dose: 30 ml Documented by: Albuterol Sulfate (Albuterol Sulfate 90 Mcg 8 Gm Inhaler) 2 puff INHALE Q4H PRN PRN Reason: Shortness Of Breath Last Admin: 02/10/21 14:32 Dose: 2 puff Documented by: Alprazolam (Alprazolam 0.25 Mg Tablet) 0.25 mg PO TID [facility] Last Admin: 02/10/21 20:11 Dose: 0.25 mg Documented by: Alprazolam (Alprazolam 0.25 Mg Tablet) 0.25 mg PO BID PRN PRN Reason: anxiety/restlessness Last Admin: 02/10/21 18:29 Dose: 0.25 mg Documented by: Amlodipine Besylate (Amlodipine Besylate 10 Mg Tablet) 10 mg PO DAILY [facility]; Protocol Ascorbic Acid (Ascorbic Acid 500 Mg Tablet) 1,000 mg PO DAILY [facility] Dicyclomine HCl (Dicyclomine Hcl 10 Mg Capsule) 10 mg PO TID [facility] Last Admin: 02/10/21 21:04 Dose: Not Given Documented by: Divalproex Sodium (Divalproex Sodium Sprinkles 125 Mg ) 125 mg PO TID [facility] Last Admin: 02/10/21 20:11 Dose: 125 mg Documented by: Famotidine (Famotidine 20 Mg Tablet) 40 mg PO BEDTIME [facility] Last Admin: 02/10/21 20:11 Dose: 40 mg Documented by: Fluticasone/Vilanterol (Fluticasone/Vilanterol 200/25 Blst.W.Dev) 1 puff INHALE RDAILY [facility] Magnesium Hydroxide (Milk Of Magnesia 30 Ml Oral.Susp) 30 ml PO DAILY PRN PRN Reason: Constipation Multivitamins/Minerals (Multivitamin With Minerals Tablet) 1 tab PO DAILY [facility] Patient Own Medication ( Levalbuterol Hcl 45mcg/Actation) 1 each INHALE Q4H PRN PRN Reason: Shortness Of Breath Or Wheezing Olanzapine (Olanzapine 5 Mg Tablet) 5 mg PO BEDTIME [facility] Last Admin: 02/10/21 20:11 Dose: 5 mg Documented by: Olanzapine (Olanzapine 2.5 Mg Tablet) 2.5 mg PO Q6H PRN PRN Reason: Anxiety Prednisone (Prednisone 10 Mg Tablet) 10 mg PO DAILY [facility] Propranolol HCl (Propranolol Hcl 10 Mg Tablet) 10 mg PO TID [facility]; Protocol Last Admin: 02/10/21 20:10 Dose: 10 mg Documented by: Tiotropium Conifer (Tiotropium Conifer 18 Mcg Cap.W.Dev) 2 puff INHALE RDAILY [facility] Trazodone HCl (Trazodone Hcl 50 Mg Tablet) 50 mg PO BEDTIME PRN PRN Reason: Insomnia Vitamin D (Cholecalciferol (Vitamin D3) 25 Mcg Tablet) 50 mcg PO DAILY [facility] Allergies Allergies Allergy/AdvReac Type Severity Reaction Status Date / Time lamotrigine [From LAMICTAL] Allergy Severe agitation Verified 01/20/21 11:33 and anxiety with titration codeine [CODEINE] Allergy Intermediate INSOMNIA Verified 01/20/21 11:33 Penicillins [PENICILLINS] Allergy Intermediate RASH Verified 01/20/21 11:33 epinephrine [EPINEPHRINE] AdvReac Intermediate Hypertensio Verified 01/20/21 11:33 n escitalopram [From LEXAPRO] AdvReac Intermediate NIGHTMARES Verified 01/20/21 11:33 sertraline [From ZOLOFT] AdvReac Intermediate NIGHTMARES Verified 01/20/21 11:33 sulfamethoxazole AdvReac Intermediate STOMACH Verified 01/20/21 11:33 [From BACTRIM] UPSET Mental Status Exam Mental Status Exam Patient Orientation: Person, Place, Time and Situation Level of Consciousness: Awake and Alert Patient Behavior: Cooperative Mood Description: Anxious, Sad and Apprehensive Affect Description: Anxious, Sad and Apprehensive Patient Cognition Impaired: No Speech Pattern: Clear and Spontaneous Speech Memory Description: Immediate Impaired and Working Impaired Hallucinations: None Delusions: Not Present Thought Process: Rumination Thought Content: positive for Obsessional Thoughts and positive for Preoccupation Depressive Symptoms: Increased Anxiety Judgement: Good Assessment & Plan Assessment & Plan (1) Major depressive disorder, recurrent episode, severe with anxious distress: Status: Acute Code(s): F33.2 - Major depressive disorder, recurrent severe without psychotic features (2) COPD (chronic obstructive pulmonary disease): Status: Acute Qualifiers: COPD type: emphysema Emphysema type: centrilobular Qualified Code(s): J43.2 - Centrilobular emphysema Code(s): J44.9 - Chronic obstructive pulmonary disease, unspecified (3) 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
[2021-02-10] MEDS: ALPRAZolam 0.25 MG TABLET PO ×3 (16:05→20:11)
[2021-02-10] MEDS: Divalproex Sodium Sprinkles 125 MG CAP.DR.SPR PO ×2 (16:05→20:11)
[2021-02-10 18:00] VITALS: BP 111/67; PULSE 87; TEMP 36.3
--- NOTE | 2021-02-10 18:31 | PC.ADMIT ---
Pt arrived on unit at 1300. Pt signed CV. Pt is very anxious, depressed. Pt crying on and off. Pt states his SI is gone, just feels very depressed.Pt is experiencing increased hopelessnexx and helplessness. Pt' reports negative thoughts bring significant distress and pain to pt because he reports that he has a good life and wants to live. Pt has been struggling with panic for the past couple years. Pt has been having difficulty with med changes and finding the right medicaion. Pt reports that he isn't doing the things he used to do such as driving, gardening,painting, etc. His anxiety makes him pace and avoid things and has been debilitating. Pt was seen with who at times helped add further clarification on how pt is doing. Pt is struggling with some memory loss and difficulty with concentration. Patient is able to engage in discussions on his care.Pt is able to make his needs known. Pt is familar with the unit. Pt tearful at times that he is struggling.
[2021-02-10 20:10] VITALS: BP 111/67; PULSE 87
[2021-02-10] MEDS: Propranolol HCL 10 MG TABLET PO (20:10)
[2021-02-10] MEDS: Famotidine 20 MG TABLET 40 MG PO (20:11)
[2021-02-10] MEDS: OLANZapine 5 MG TABLET PO (20:11)
[2021-02-11] MEDS: Albuterol Sulfate 90 MCG 8 GM INHALER 2 PUFF INHALE ×2 (04:41→13:25)
[2021-02-11 06:00] VITALS: BP 97/54; PULSE 72; RESP 16; TEMP 36.6; O2SAT 72
--- NOTE | 2021-02-11 07:34 | P.PNPSI_ITS ---
Subjective Subjective Date of Service: 02/11/21 Reason For Visit: depression Subjective Notes: Conditional Voluntary Healthcare Proxy: No Guardianship: No Medical Problems Affecting Mental Status: No Interim History: pt reports feeling very sad and easily tearful. He asks if this is depression; he doesn't understand whats going on with him. He reports no significant change with starting Xanax but is hopeful. He denies panic attack this ma; he is soft spoken and depreesed with psychomotor slowing. He denies SI or HI. Denies auditory or visual hallucinations. Medication Compliance: Yes Side effects from medications: No Attending Groups: No Review of Systems Review of Systems Constitutional : No Weight loss, No Fever, No Chills ENT/Mouth : No sore throat, No Rhinorrhea Eyes: No Eye Pain, No Swelling Cardiovascular : No Chest Pain, no palpitations Respiratory : No Cough, No Sputum, no shortness of breath Gastrointestinal : no Nausea, No Vomiting, No Diarrhea, No abdominal Pain, no black stools Genitourinary : No Dysuria, No Urinary Frequency Musculoskeletal : No joint pain, No Myalgias, No Joint Swelling Skin : No Skin Lesions, No rash Neuro : No Weakness, No Numbness, No Dizziness, No Headache Psych : + Anxiety/Panic, + Depression Heme/Lymph: No Bruising, No Lymphadenopathy Endocrine : No Polyuria, No Polydipsia All other systems reviewed and are negative Mental Status Exam Mental Status Exam Patient Appearance: Fatigued and Disheveled Patient Orientation: Person and Situation Level of Consciousness: Appropriate and Alert Patient Behavior: Appropriate, Anxious, Fatigued, Good Eye Contact and Crying Mood Description: Anxious, Sad and Apprehensive Affect Description: Anxious, Sad and Apprehensive Patient Cognition Impaired: Yes Ability to Follow Directions: Fair Speech Pattern: Impoverished Memory Description: Immediate Impaired and Working Impaired Depressive Symptoms: Increased Anxiety, Diff. Making Decisions and Crying Spells Abnormal Motor Activity Signs and Symptoms: Psychomotor Retardation Judgement: Fair Diagnostics Vital Signs (24Hr): Vital Signs - 24 hr 02/10/21 09:21 02/10/21 18:00 02/10/21 20:10 Temperature 98.7 F 97.4 F Pulse Rate 84 87 87 Respiratory Rate 17 Blood Pressure 150/84 H 111/67 111/67 Pulse Oximetry 97 02/11/21 06:00 Temperature 97.9 F Pulse Rate 72 Respiratory Rate 16 Blood Pressure 97/54 L Pulse Oximetry 72 L Body Mass Index 29.0 Labs Results: 02/10/21 10:12 02/11/21 08:59 Labs: Laboratory Results - last 48 hr 02/10/21 02/10/21 02/10/21 10:12 10:12 10:12 WBC 10.9 H RBC 5.23 Hgb 15.8 Hct 48.1 MCV 92.0 MCH 30.2 MCHC 32.8 RDW 12.5 Plt Count 222 MPV 8.6 L Immature Gran % (Auto) 0.5 H Neut % (Auto) 51.4 Lymph % (Auto) 37.3 [place] % (Auto) 9.2 Eos % (Auto) 1.1 Baso % (Auto) 0.5 Lymph # (Auto) 4.1 Hart # (Auto) 1.0 Eos # (Auto) 0.1 Baso # (Auto) 0.1 Abs Immat Gran (auto) 0.05 H Absolute Neuts (auto) 5.6 Absolute Nucleated RBC 0.000 Nucleated RBC % (auto) 0.0 Sodium 143 Potassium 4.0 Chloride 104 Carbon Dioxide 31 H Anion Gap 12 BUN 17 H Creatinine 0.96 Estim Creat Clear Calc 75.2 Estimated GFR > 60 Random Glucose 78 Calcium 9.7 D Total Bilirubin 0.5 AST 12 ALT 20 Alkaline Phosphatase 44 Total Protein 7.1 Albumin 4.4 Urine Color Urine Appearance Urine pH Ur Specific [place] Urine Protein Urine Glucose (UA) Urine Ketones Urine Blood Urine Nitrite Ur Leukocyte Esterase Urine RBC Urine WBC Ur Squamous Epith Cells Urine Bacteria Urine Opiates Screen Ur Barbiturates Screen Ur Phencyclidine Scrn Ur Amphetamines Screen U Benzodiazepines Scrn Urine Cocaine Screen U Marijuana (THC) Screen COVID-19 (MARRY) Negative COVID-19 Clin Com See Note 02/10/21 02/10/21 11:28 11:28 WBC RBC Hgb Hct MCV MCH MCHC RDW Plt Count MPV Immature Gran % (Auto) Neut % (Auto) Lymph % (Auto) [place] % (Auto) Eos % (Auto) Baso % (Auto) Lymph # (Auto) Hart # (Auto) Eos # (Auto) Baso # (Auto) Abs Immat Gran (auto) Absolute Neuts (auto) Absolute Nucleated RBC Nucleated RBC % (auto) Sodium Potassium Chloride Carbon Dioxide Anion Gap BUN Creatinine Estim Creat Clear Calc Estimated GFR Random Glucose Calcium Total Bilirubin AST ALT Alkaline Phosphatase Total Protein Albumin Urine Color YELLOW Urine Appearance CLEAR Urine pH 6.0 Ur Specific [place] 1.015 Urine Protein NEG Urine Glucose (UA) NEG Urine Ketones 5 Urine Blood NEG Urine Nitrite NEG Ur Leukocyte Esterase NEG Urine RBC 0 Urine WBC 0 Ur Squamous Epith Cells NONE Urine Bacteria NONE Urine Opiates Screen Not Detected Ur Barbiturates Screen Not Detected Ur Phencyclidine Scrn Not Detected Ur Amphetamines Screen Not Detected U Benzodiazepines Scrn Not Detected Urine Cocaine Screen Not Detected U Marijuana (THC) Screen Not Detected COVID-19 ([facility]ARRY) COVID-19 Clin Com Medications Medications Current Medications Generic Name Dose Route Start Last Admin Trade Name Freq PRN Reason Stop Dose Admin Acetaminophen 650 mg 02/10/21 12:49 Acetaminophen 325 Mg Tablet PO Q6H PRN Headache/Pain Mild Scale (1-3) Al Hydroxide/Mg Hydroxide 30 ml 02/10/21 12:49 02/10/21 14:02 Magnesium Hydrox/Alum Hydrox 30 Ml Oral.Susp PO 30 ml Q6H PRN Administration Heartburn/Nausea Albuterol Sulfate 2 puff 02/10/21 12:49 02/11/21 04:41 Albuterol Sulfate 90 Mcg 8 Gm Inhaler INHALE 2 puff Q4H PRN Administration Shortness Of Breath Alprazolam 0.25 mg 02/10/21 15:00 02/10/21 20:11 Alprazolam 0.25 Mg Tablet PO 0.25 mg TID ÁLVARO Administration Alprazolam 0.25 mg 02/10/21 14:46 02/10/21 18:29 Alprazolam 0.25 Mg Tablet PO 0.25 mg BID PRN Administration anxiety/restlessness Amlodipine Besylate 10 mg 02/11/21 09:00 Amlodipine Besylate 10 Mg Tablet PO DAILY [facility] Protocol Ascorbic Acid 1,000 mg 02/11/21 09:00 Ascorbic Acid 500 Mg Tablet PO DAILY ÁLVARO Dicyclomine HCl 10 mg 02/10/21 21:00 02/10/21 21:04 Dicyclomine Hcl 10 Mg Capsule PO Not Given TID ÁLVARO Divalproex Sodium 125 mg 02/10/21 15:00 02/10/21 20:11 Divalproex Sodium Sprinkles 125 Mg Cap.Spr PO 125 mg TID ÁLVARO Administration Famotidine 40 mg 02/10/21 21:00 02/10/21 20:11 Famotidine 20 Mg Tablet PO 40 mg BEDTIME ÁLVARO Administration Fluticasone/Vilanterol 1 puff 02/11/21 08:00 Fluticasone/Vilanterol 200/25 Blst.W.Dev INHALE RDAILY [facility] Magnesium Hydroxide 30 ml 02/10/21 12:49 Milk Of Magnesia 30 Ml Oral.Susp PO DAILY PRN Constipation Multivitamins/Minerals 1 tab 02/11/21 09:00 Multivitamin With Minerals Tablet PO DAILY [facility] Patient Own 1 each 02/10/21 19:17 02/11/21 06:58 Medication ( INHALE 1 each Levalbuterol Hcl Q4H PRN Administration 45mcg/Actation) Shortness Of Breath Or Wheezing Olanzapine 5 mg 02/10/21 21:00 02/10/21 20:11 Olanzapine 5 Mg Tablet PO 5 mg BEDTIME [facility] Administration Olanzapine 2.5 mg 02/10/21 12:49 Olanzapine 2.5 Mg Tablet PO Q6H PRN Anxiety Prednisone 10 mg 02/11/21 09:00 Prednisone 10 Mg Tablet PO DAILY [facility] Propranolol HCl 10 mg 02/10/21 21:00 02/10/21 20:10 Propranolol Hcl 10 Mg Tablet PO 10 mg TID [facility] Administration Protocol Tiotropium Burr 2 puff 02/11/21 08:00 Tiotropium Burr 18 Mcg Cap.W.Dev INHALE RDAILY [facility] Trazodone HCl 50 mg 02/10/21 12:49 Trazodone Hcl 50 Mg Tablet PO BEDTIME PRN Insomnia Vitamin D 50 mcg 02/11/21 09:00 Cholecalciferol (Vitamin D3) 25 Mcg Tablet PO DAILY [facility] Allergies Allergies Allergy/AdvReac Type Severity Reaction Status Date / Time lamotrigine [From LAMICTAL] Allergy Severe agitation Verified 01/20/21 11:33 and anxiety with titration codeine [CODEINE] Allergy Intermediate INSOMNIA Verified 01/20/21 11:33 Penicillins [PENICILLINS] Allergy Intermediate RASH Verified 01/20/21 11:33 epinephrine [EPINEPHRINE] AdvReac Intermediate Hypertensio Verified 01/20/21 11:33 n escitalopram [From LEXAPRO] AdvReac Intermediate NIGHTMARES Verified 01/20/21 11:33 sertraline [From ZOLOFT] AdvReac Intermediate NIGHTMARES Verified 01/20/21 11:33 sulfamethoxazole AdvReac Intermediate STOMACH Verified 01/20/21 11:33 [From BACTRIM] UPSET Assessment & Plan Assessment & Plan (1) Major depressive disorder, recurrent episode, severe with anxious distress: Status: Acute Code(s): F33.2 - Major depressive disorder, recurrent severe without psychotic features (2) COPD (chronic obstructive pulmonary disease): Qualifiers: COPD type: emphysema Emphysema type: centrilobular Qualified Code(s): J43.2 - Centrilobular emphysema Status: Acute Code(s): J44.9 - Chronic obstructive pulmonary disease, unspecified (3) 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: Status: Acute Code(s): F40.01 - Agoraphobia with panic disorder Assessment and Plan: No changes: Continue with plan below encourage meds and fluids offer education with small amount of information at time tx resistant depression anxiety failed multple tx past response to ect plan consider ect eval med risk antidep stopped consider emsam med eval depakote stop ativan start alprazolam for panic anxiety cont medical tx plan consider tca trial Greater than 50% of the session was spent on counseling and/or coordination of care Patient educated on: medication risk/benefits Informed Consent: further education needed Reason for contiued inpatient stay Substantial Risk for: inability to function, rapid decompensation and med/psych decompensation
[2021-02-11 08:12] VITALS: BP 137/68; PULSE 98
[2021-02-11] MEDS: amLODIPine Besylate 10 MG TABLET PO (08:12)
[2021-02-11] MEDS: Ascorbic Acid 500 MG TABLET 1000 MG PO (08:12)
[2021-02-11] MEDS: Dicyclomine HCl 10 MG CAPSULE PO ×3 (08:12→21:09)
[2021-02-11 08:13] VITALS: BP 137/68; PULSE 98
[2021-02-11] MEDS: predniSONE 10 MG TABLET PO (08:13)
[2021-02-11] MEDS: Cholecalciferol (Vitamin D3) 25 MCG TABLET 50 MCG PO (08:13)
[2021-02-11] MEDS: Propranolol HCL 10 MG TABLET PO ×3 (08:13→21:10)
[2021-02-11] MEDS: Divalproex Sodium Sprinkles 125 MG CAP.DR.SPR PO ×3 (08:13→21:09)
[2021-02-11] MEDS: Fluticasone/Vilanterol 200/25 BLST.W.DEV 1 PUFF INHALE (08:14)
[2021-02-11] MEDS: ALPRAZolam 0.25 MG TABLET PO ×5 (08:23→21:09)
[2021-02-11 09:41] LABS: Alanine Aminotransferase 17 U/L (0-40); Albumin Level 4.3 g/dL (3.5-5.0); Alkaline Phosphatase 43 U/L (39-117); Anion Gap 14 (12-20); Aspartate Amino Transferase 13 U/L (5-37); Bilirubin Total 0.6 mg/dL (0.0-1.0); Blood Urea Nitrogen 18 mg/dL (9-16); Calcium 9.6 mg/dL (8.4-10.2); Carbon Dioxide 29 mmol/L (22-29); Chloride 103 mmol/L (96-108); Cholesterol 232 mg/dL; Estimated Glomerular Filt Rate > 60; Glucose Fasting 85 mg/dL (60-99); HDL Cholesterol 58 mg/dL; LDL Cholesterol Calculated 137 mg/dl; Potassium 4.5 mmol/L (3.3-5.1); Sodium 141 mmol/L (135-145); Total Protein 6.8 g/dL (6.5-8.0); Triglycerides 186 mg/dL
[2021-02-11 10:01] LABS: TSH reflex Free T4 1.69 uIU/mL (0.32-4.0)
[2021-02-11] MEDS: OLANZapine 2.5 MG TABLET PO (11:06)
--- NOTE | 2021-02-11 12:52 | PM.EVENT ---
Event Note Date of Service: 02/11/21 Event Note: I WAS ASKED TO SEE THIS PATIENT FOR PULMONARY CONSULT AN TO CLEAR FOR ECT PROCEDURE. THIS GENTLEMAN IS WELL KNOWN TO OUR PULMONARY DEPARTMENT AND IS BEING FOLLOWED CLOSELY BY DR. MAGALLANES. HE HAS ADVANCED CHRONIC OBSTRUCTIVE PULMONARY DISEASE, BUT IT IS RELATIVELY STABLE AT THIS TIME. CURRENT MEDICATIONS INCLUDE ADVAIR 500-51 INHALATION B.I.D., HERE IN HOSPITAL CAN BE CHANGED TO BREO-200/25 1 INHALATION DAILY SPIRIVA RESPIMAT 2.5 MG 2 INHALATION DAILY ALBUTEROL 2 PUFFS Q.6 HOURS P.R.N. HAS AZITHROMYCIN 250 MG ON ALTERNATE DAYS. OXYGEN 2 L/MINUTE / WITH PORTABLE UNIT OR ANY WALKING OR PHYSICAL ACTIVITY. FROM PULMONARY POINT OF VIEW THERE IS NO CONTRAINDICATION TO HAVE HIM UNDERGO ECT PROCEDURE AT THIS TIME. POST PROCEDURE MAY NEED OXYGEN SUPPLEMENTATION EVEN AT REST, AND WOULD NEED TO BE WATCHED CLOSELY FOR 24 HOURS. THANK YOU.
[2021-02-11 15:36] VITALS: BP 115/70; PULSE 104
[2021-02-11] MEDS: ALPRAZolam 0.5 MG TABLET PO (15:36)
[2021-02-11 18:00] VITALS: BP 115/70; PULSE 104; RESP 20; TEMP 36.2; O2SAT 96
[2021-02-11] MEDS: Famotidine 20 MG TABLET 40 MG PO (21:09)
[2021-02-11 21:10] VITALS: BP 113/84; PULSE 93
[2021-02-11] MEDS: OLANZapine 5 MG TABLET PO (21:10)
[2021-02-11] MEDS: Magnesium Hydrox/Alum Hydrox 30 ML ORAL.SUSP PO (21:26)
[2021-02-12 06:00] VITALS: BP 130/73; PULSE 73; RESP 16; TEMP 36.1; O2SAT 95
[2021-02-12 08:17] VITALS: BP 114/65; PULSE 74
[2021-02-12] MEDS: Ascorbic Acid 500 MG TABLET 1000 MG PO (08:17)
[2021-02-12] MEDS: ALPRAZolam 0.25 MG TABLET PO ×2 (08:17→13:47)
[2021-02-12] MEDS: amLODIPine Besylate 10 MG TABLET PO (08:17)
[2021-02-12 08:18] VITALS: BP 114/65; PULSE 74
[2021-02-12] MEDS: Propranolol HCL 10 MG TABLET PO ×3 (08:18→20:34)
[2021-02-12] MEDS: Divalproex Sodium Sprinkles 125 MG CAP.DR.SPR PO ×3 (08:18→20:34)
[2021-02-12] MEDS: predniSONE 10 MG TABLET PO (08:18)
[2021-02-12] MEDS: Dicyclomine HCl 10 MG CAPSULE PO ×3 (08:19→20:32)
[2021-02-12] MEDS: Fluticasone/Vilanterol 200/25 BLST.W.DEV 1 PUFF INHALE (08:19)
[2021-02-12] MEDS: Cholecalciferol (Vitamin D3) 25 MCG TABLET 50 MCG PO (08:19)
--- NOTE | 2021-02-12 12:20 | HO.PSYCHPN ---
Subjective Subjective Date of Service: 02/12/21 Reason For Visit: depression Interim History: pt reports feeling less distraught; less tearful. Reports he felt much relief from increased xanax. He felt hopeful; less distress; no side effects; no dizziness; no sedation; no change in gait. He denies panic attack for last 12 hours.he is soft spoken and depressed with psychomotor slowing. He denies SI or HI. Denies auditory or visual hallucinations. Review of Systems Review of Systems Constitutional : No Weight loss, No Fever, No Chills ENT/Mouth : No sore throat, No Rhinorrhea Eyes: No Eye Pain, No Swelling Cardiovascular : No Chest Pain, no palpitations Respiratory : No Cough, No Sputum, no shortness of breath Gastrointestinal : no Nausea, No Vomiting, No Diarrhea, No abdominal Pain, no black stools Genitourinary : No Dysuria, No Urinary Frequency Musculoskeletal : No joint pain, No Myalgias, No Joint Swelling Skin : No Skin Lesions, No rash Neuro : No Weakness, No Numbness, No Dizziness, No Headache Psych : + Anxiety/Panic, + Depression Heme/Lymph: No Bruising, No Lymphadenopathy Endocrine : No Polyuria, No Polydipsia All other systems reviewed and are negative Mental Status Exam Mental Status Exam Patient Appearance: Fatigued and Disheveled Patient Orientation: Person and Situation Level of Consciousness: Appropriate and Alert Patient Behavior: Appropriate, Anxious, Fatigued, Good Eye Contact and Crying Mood Description: Anxious, Sad and Apprehensive Affect Description: Anxious, Sad and Apprehensive Patient Cognition Impaired: Yes Ability to Follow Directions: Fair Speech Pattern: Impoverished Memory Description: Immediate Impaired and Working Impaired Diagnostics Vital Signs (24Hr): Vital Signs - 24 hr 02/11/21 15:36 02/11/21 18:00 02/11/21 21:10 Temperature 97.2 F Pulse Rate 104 H 104 H 93 Respiratory Rate 20 Blood Pressure 115/70 115/70 113/84 Pulse Oximetry 96 02/12/21 06:00 02/12/21 08:17 02/12/21 08:18 Temperature 96.9 F Pulse Rate 73 74 74 Respiratory Rate 16 Blood Pressure 130/73 114/65 114/65 Pulse Oximetry 95 Body Mass Index 29.0 Labs Results: 02/10/21 10:12 02/11/21 08:59 Labs: Laboratory Results - last 48 hr 02/11/21 08:59 Sodium 141 Potassium 4.5 Chloride 103 Carbon Dioxide 29 Anion Gap 14 BUN 18 H Creatinine 0.95 Estim Creat Clear Calc 76.0 Estimated GFR > 60 Fasting Glucose 85 Calcium 9.6 Total Bilirubin 0.6 AST 13 ALT 17 Alkaline Phosphatase 43 Total Protein 6.8 Albumin 4.3 Triglycerides 186 Cholesterol 232 LDL Cholesterol, Calc 137 HDL Cholesterol 58 TSH 1.69 Medications Medications Current Medications Generic Name Dose Route Start Last Admin Trade Name Nafisa PRN Reason Stop Dose Admin Acetaminophen 650 mg 02/10/21 12:49 Acetaminophen 325 Mg Tablet PO Q6H PRN Headache/Pain Mild Scale (1-3) Al Hydroxide/Mg Hydroxide 30 ml 02/10/21 12:49 02/11/21 21:26 Magnesium Hydrox/Alum Hydrox 30 Ml Oral.Susp PO 30 ml Q6H PRN Administration Heartburn/Nausea Albuterol Sulfate 2 puff 02/10/21 12:49 02/11/21 13:25 Albuterol Sulfate 90 Mcg 8 Gm Inhaler INHALE 2 puff Q4H PRN Administration Shortness Of Breath Alprazolam 0.25 mg 02/10/21 15:00 02/12/21 08:17 Alprazolam 0.25 Mg Tablet PO 0.25 mg TID ÁLVARO Administration Alprazolam 0.25 mg 02/10/21 14:46 02/11/21 13:26 Alprazolam 0.25 Mg Tablet PO 0.25 mg BID PRN Administration anxiety/restlessness Amlodipine Besylate 10 mg 02/11/21 09:00 02/12/21 08:17 Amlodipine Besylate 10 Mg Tablet PO 10 mg DAILY ÁLVARO Administration Protocol Ascorbic Acid 1,000 mg 02/11/21 09:00 02/12/21 08:17 Ascorbic Acid 500 Mg Tablet PO 1,000 mg DAILY ÁLVARO Administration Dicyclomine HCl 10 mg 02/10/21 21:00 02/12/21 08:19 Dicyclomine Hcl 10 Mg Capsule PO 10 mg TID ÁLVARO Administration Divalproex Sodium 125 mg 02/10/21 15:00 02/12/21 08:18 Divalproex Sodium Sprinkles 125 Mg Cap.Dr.Spr PO 125 mg TID ÁLVARO Administration Famotidine 40 mg 02/10/21 21:00 02/11/21 21:09 Famotidine 20 Mg Tablet PO 40 mg BEDTIME ÁLVARO Administration Fluticasone/Vilanterol 1 puff 02/11/21 08:00 02/12/21 08:19 Fluticasone/Vilanterol 200/25 Blst.W.Dev INHALE 1 puff RDAILY ÁLVARO Administration Magnesium Hydroxide 30 ml 02/10/21 12:49 Milk Of Magnesia 30 Ml Oral.Susp PO DAILY PRN Constipation Multivitamins/Minerals 1 tab 02/11/21 09:00 02/12/21 08:17 Multivitamin With Minerals Tablet PO 1 tab DAILY ÁLVARO Administration Patient Own 1 each 02/10/21 19:17 02/11/21 11:21 Medication ( INHALE 1 each Levalbuterol Hcl Q4H PRN Administration 45mcg/Actation) Shortness Of Breath Or Wheezing Olanzapine 5 mg 02/10/21 21:00 02/11/21 21:10 Olanzapine 5 Mg Tablet PO 5 mg BEDTIME ÁLVARO Administration Olanzapine 2.5 mg 02/10/21 12:49 02/11/21 11:06 Olanzapine 2.5 Mg Tablet PO 2.5 mg Q6H PRN Administration Anxiety Prednisone 10 mg 02/11/21 09:00 02/12/21 08:18 Prednisone 10 Mg Tablet PO 10 mg DAILY ÁLVARO Administration Propranolol HCl 10 mg 02/10/21 21:00 02/12/21 08:18 Propranolol Hcl 10 Mg Tablet PO 10 mg TID ÁLVARO Administration Protocol Tiotropium [place] 2 puff 02/11/21 08:00 02/12/21 08:19 Tiotropium [place] 18 Mcg Cap.W.Dev INHALE 2 puff RDAILY ÁLVARO Administration Trazodone HCl 50 mg 02/10/21 12:49 Trazodone Hcl 50 Mg Tablet PO BEDTIME PRN Insomnia Vitamin D 50 mcg 02/11/21 09:00 02/12/21 08:19 Cholecalciferol (Vitamin D3) 25 Mcg Tablet PO 50 mcg DAILY ÁLVARO Administration Allergies Allergies Allergy/AdvReac Type Severity Reaction Status Date / Time lamotrigine [From LAMICTAL] Allergy Severe agitation Verified 01/20/21 11:33 and anxiety with titration codeine [CODEINE] Allergy Intermediate INSOMNIA Verified 01/20/21 11:33 Penicillins [PENICILLINS] Allergy Intermediate RASH Verified 01/20/21 11:33 epinephrine [EPINEPHRINE] AdvReac Intermediate Hypertensio Verified 01/20/21 11:33 n escitalopram [From LEXAPRO] AdvReac Intermediate NIGHTMARES Verified 01/20/21 11:33 sertraline [From ZOLOFT] AdvReac Intermediate NIGHTMARES Verified 01/20/21 11:33 sulfamethoxazole AdvReac Intermediate STOMACH Verified 01/20/21 11:33 [From BACTRIM] UPSET Assessment & Plan Assessment & Plan (1) Major depressive disorder, recurrent episode, severe with anxious distress: Status: Acute Code(s): F33.2 - Major depressive disorder, recurrent severe without psychotic features (2) COPD (chronic obstructive pulmonary disease): Qualifiers: COPD type: emphysema Emphysema type: centrilobular Qualified Code(s): J43.2 - Centrilobular emphysema Status: Acute Code(s): J44.9 - Chronic obstructive pulmonary disease, unspecified (3) 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: Status: Acute Code(s): F40.01 - Agoraphobia with panic disorder Assessment and Plan: scheduled xanax to 0.5 mg TID increase xanax prn to 0.5 mg PRN at pt request encourage meds and fluids offer education with small amount of information at time tx resistant depression anxiety failed multple tx past response to ect plan consider ect eval med risk antidep stopped consider emsam med eval depakote stop ativan start alprazolam for panic anxiety cont medical tx plan consider tca trial Greater than 50% of the session was spent on counseling and/or coordination of care Reason for contiued inpatient stay Substantial Risk for: inability to function, rapid decompensation and med/psych decompensation
[2021-02-12] MEDS: OLANZapine 2.5 MG TABLET PO (13:47)
[2021-02-12] MEDS: Albuterol Sulfate 90 MCG 8 GM INHALER 2 PUFF INHALE ×2 (13:51→19:02)
[2021-02-12 15:32] VITALS: BP 116/81; PULSE 99
[2021-02-12] MEDS: ALPRAZolam 0.5 MG TABLET PO ×3 (15:32→21:51)
[2021-02-12 18:00] VITALS: BP 127/77; PULSE 96; RESP 20; TEMP 36
[2021-02-12] MEDS: Famotidine 20 MG TABLET 40 MG PO (20:33)
[2021-02-12 20:34] VITALS: BP 132/78; PULSE 88
[2021-02-12] MEDS: OLANZapine 5 MG TABLET PO (20:34)
[2021-02-13 06:00] VITALS: BP 110/59; PULSE 81; O2SAT 97
[2021-02-13 09:21] LABS: Folate 7.3 ng/mL (> or = 4.0); Vitamin B12 1082 pg/mL (200-900)
[2021-02-13] MEDS: Fluticasone/Vilanterol 200/25 BLST.W.DEV 1 PUFF INHALE (09:29)
[2021-02-13 09:30] VITALS: BP 110/59; PULSE 81
[2021-02-13] MEDS: amLODIPine Besylate 10 MG TABLET PO (09:30)
[2021-02-13] MEDS: Propranolol HCL 10 MG TABLET PO ×3 (09:30→20:48)
[2021-02-13] MEDS: Cholecalciferol (Vitamin D3) 25 MCG TABLET 50 MCG PO (09:30)
[2021-02-13] MEDS: Dicyclomine HCl 10 MG CAPSULE PO ×3 (09:31→20:48)
[2021-02-13] MEDS: Divalproex Sodium Sprinkles 125 MG CAP.DR.SPR PO ×3 (09:31→20:48)
[2021-02-13] MEDS: predniSONE 10 MG TABLET PO (09:31)
[2021-02-13] MEDS: Ascorbic Acid 500 MG TABLET 1000 MG PO (09:31)
[2021-02-13] MEDS: ALPRAZolam 0.5 MG TABLET PO ×4 (09:31→20:49)
--- NOTE | 2021-02-13 13:08 | CONS_ITS ---
DATE OF SERVICE: 02/11/2021 HISTORY OF PRESENT ILLNESS: I was asked to see this patient for pulmonary evaluation and especially to clear him for ECT procedure. This patient is being followed by Dr. Torres in our [facility] very actively. It should be noted that at present, he does not have any new or active respiratory symptoms. He is admitted through the emergency room because of increased depression and in addition to medical therapy, he would require ECT procedure. He has had this procedure before last year without any untoward effects. 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 He is being regularly followed by Dr. Torres. His current medications include Advair 500/50 one inhalation b.i.d., Trelegy Ellipta 200/62.5/25 one inhalation daily, and albuterol 2 puffs q.6 hours p.r.n. At times, he has also used levalbuterol because albuterol causes tachycardia. The patient is currently supposed to be on portable O2 at 2 L/minute. He does have a portable unit at home. In the past 1 year, his respiratory status has remained fairly stable except for a few attacks of worsening when he required a short course of prednisone. He does have mild intermittent cough on an ongoing basis and he gets short of breath on walking uphill or climbing stairs or doing any heavy physical work. The patient has history of smoking, but has quit recently. This patient has also participated in pulmonary rehab program. PHYSICAL EXAMINATION: GENERAL: 71-year-old gentleman, sitting on the bedside, talking without any issue and does not seem to be in any respiratory distress. VITAL SIGNS: Currently at rest, his respiratory rate is 14, O2 saturation is 94. EAR, NOSE, THROAT: Examination is normal. NECK: No JVD. Carotids normal. Trachea midline. CHEST: Symmetrical. Percussion note hyper-resonant. Breath sounds are quite distant with prolonged expiratory phase. No wheezes or rhonchi. CARDIAC: Sounds are distant. Rhythm regular. No murmurs. ABDOMEN: Flat, soft, and nontender. No palpable mass. EXTREMITIES: No edema or varicosities. Peripheral pulses are faintly palpable. LABORATORY DATA: White cell count 10.9, hemoglobin 15.8, eosinophil count 1.1. Electrolytes are normal. BUN 18, creatinine 0.98. DIAGNOSTIC DATA: CT scan of the chest on 01/10/2021 showed centrilobular emphysema without any acute processes. Only 1 mm nodule in the right lower lobe. The patient has had pulmonary function test in 2019 consistent with severe obstructive airway disorder. CLINICAL IMPRESSION: Chronic obstructive pulmonary disease, severe, well controlled at this time. From pulmonary point of view, he is okay to go through ECT and postprocedure should be watched for any respiratory failure closely. Continue his present medical regimen. Thank you very much for asking me to see this patient. MD LEWIS Arteaga/MARIAM / [phone]
[2021-02-13 15:00] VITALS: BP 124/93; PULSE 95
[2021-02-13] MEDS: Magnesium Hydrox/Alum Hydrox 30 ML ORAL.SUSP PO (17:15)
[2021-02-13 17:51] VITALS: BP 115/77; PULSE 82; RESP 18; TEMP 36.2; O2SAT 96
[2021-02-13 20:48] VITALS: BP 120/76; PULSE 89
[2021-02-13] MEDS: OLANZapine 5 MG TABLET PO (20:48)
[2021-02-13] MEDS: Famotidine 20 MG TABLET 40 MG PO (20:49)
--- NOTE | 2021-02-13 22:34 | P.PNPSI_ITS ---
Subjective Subjective Date of Service: 02/13/21 Reason For Visit: depression Subjective Notes: Conditional Voluntary Guardianship: No Interim History: Patient with some improvement noted on alprazolam t.i.d. and Depakote t.i.d.. Patient still remains ruminating intensely hopeless helpless at times doing better needs much constant reassurance has not done well on any antidepressant trial generally Failed multiple outpatient trials Medication Compliance: Yes Mental Status Exam Mental Status Exam Narrative: Patient improved affect when around people otherwise anxious dysphoric needs much reassurance Patient Appearance: Fatigued and Disheveled Patient Orientation: Person, Place, Time and Situation Level of Consciousness: Appropriate and Alert Patient Behavior: Appropriate, Anxious, Fatigued and Good Eye Contact Mood Description: Anxious, Sad and Apprehensive Affect Description: Anxious, Sad and Apprehensive Patient Cognition Impaired: Yes Ability to Follow Directions: Fair Speech Pattern: Impoverished Memory Description: Immediate Impaired and Working Impaired Hallucinations: None Thought Content: positive for Obsessional Thoughts and positive for Preoccup ation Depressive Symptoms: Increased Anxiety, Increased Irritability, Changes in Appetite, Crying Spells, Loss of Int. in Activity, Feelings of Worthlessness and Hopelessness Judgement: Fair Judgement and Insight: Diagnostics Vital Signs (24Hr): Vital Signs - 24 hr 02/13/21 06:00 02/13/21 09:30 02/13/21 15:00 Temperature Pulse Rate 81 81 95 Respiratory Rate Blood Pressure 110/59 L 110/59 L 124/93 H Pulse Oximetry 97 02/13/21 17:51 02/13/21 20:48 Temperature 97.2 F Pulse Rate 82 89 Respiratory Rate 18 Blood Pressure 115/77 120/76 Pulse Oximetry 96 Body Mass Index 29.0 Labs Results: 02/10/21 10:12 02/11/21 08:59 Labs: Laboratory Results - last 48 hr 02/11/21 08:59 Vitamin B12 1082 H Folate 7.3 Medications Medications Current Medications Generic Name Dose Route Start Last Admin Trade Name Freq PRN Reason Stop Dose Admin Acetaminophen 650 mg 02/10/21 12:49 Acetaminophen 325 Mg Tablet PO Q6H PRN Headache/Pain Mild Scale (1-3) Al Hydroxide/Mg Hydroxide 30 ml 02/10/21 12:49 02/13/21 17:15 Magnesium Hydrox/Alum Hydrox 30 Ml Oral.Susp PO 30 ml Q6H PRN Administration Heartburn/Nausea Albuterol Sulfate 2 puff 02/10/21 12:49 02/12/21 19:02 Albuterol Sulfate 90 Mcg 8 Gm Inhaler INHALE 2 puff Q4H PRN Administration Shortness Of Breath Alprazolam 0.5 mg 02/12/21 15:00 02/13/21 20:49 Alprazolam 0.5 Mg Tablet PO 0.5 mg TID ÁLVARO Administration Alprazolam 0.5 mg 02/12/21 16:42 02/13/21 12:28 Alprazolam 0.5 Mg Tablet PO 0.5 mg BID PRN Administration anxiety/restlessness Amlodipine Besylate 10 mg 02/11/21 09:00 02/13/21 09:30 Amlodipine Besylate 10 Mg Tablet PO 10 mg DAILY ÁLVARO Administration Protocol Ascorbic Acid 1,000 mg 02/11/21 09:00 02/13/21 09:31 Ascorbic Acid 500 Mg Tablet PO 1,000 mg DAILY ÁLVARO Administration Dicyclomine HCl 10 mg 02/10/21 21:00 02/13/21 20:48 Dicyclomine Hcl 10 Mg Capsule PO 10 mg TID ÁLVARO Administration Divalproex Sodium 125 mg 02/10/21 15:00 02/13/21 20:48 Divalproex Sodium Sprinkles 125 Mg Cap.Spr PO 125 mg TID ÁLVARO Administration Divalproex Sodium 125 mg 02/13/21 22:31 Divalproex Sodium 125 Mg Tablet. PO 02/13/21 22:32 DAILY ONE Famotidine 40 mg 02/10/21 21:00 02/13/21 20:49 Famotidine 20 Mg Tablet PO 40 mg BEDTIME ÁLVARO Administration Fluticasone/Vilanterol 1 puff 02/11/21 08:00 02/13/21 09:29 Fluticasone/Vilanterol 200/25 Blst.W.Dev INHALE 1 puff RDAILY ÁLVARO Administration Magnesium Hydroxide 30 ml 02/10/21 12:49 Milk Of Magnesia 30 Ml Oral.Susp PO DAILY PRN Constipation Multivitamins/Minerals 1 tab 02/11/21 09:00 02/13/21 09:31 Multivitamin With Minerals Tablet PO 1 tab DAILY ÁLVARO Administration Patient Own 1 each 02/10/21 19:17 02/13/21 14:47 Medication ( INHALE 1 each Levalbuterol Hcl Q4H PRN Administration 45mcg/Actation) Shortness Of Breath Or Wheezing Olanzapine 5 mg 02/10/21 21:00 02/13/21 20:48 Olanzapine 5 Mg Tablet PO 5 mg BEDTIME ÁLVARO Administration Olanzapine 2.5 mg 02/10/21 12:49 02/12/21 13:47 Olanzapine 2.5 Mg Tablet PO 2.5 mg Q6H PRN Administration Anxiety Prednisone 10 mg 02/11/21 09:00 02/13/21 09:31 Prednisone 10 Mg Tablet PO 10 mg DAILY ÁLVARO Administration Propranolol HCl 10 mg 02/10/21 21:00 02/13/21 20:48 Propranolol Hcl 10 Mg Tablet PO 10 mg TID ÁLVARO Administration Protocol Tiotropium [place] 2 puff 02/11/21 08:00 02/13/21 11:54 Tiotropium [place] 18 Mcg Cap.W.Dev INHALE 2 puff RDAILY ÁLVARO Administration Trazodone HCl 50 mg 02/10/21 12:49 Trazodone Hcl 50 Mg Tablet PO BEDTIME PRN Insomnia Vitamin D 50 mcg 02/11/21 09:00 02/13/21 09:30 Cholecalciferol (Vitamin D3) 25 Mcg Tablet PO 50 mcg DAILY ÁLVARO Administration Allergies Allergies Allergy/AdvReac Type Severity Reaction Status Date / Time lamotrigine [From LAMICTAL] Allergy Severe agitation Verified 01/20/21 11:33 and anxiety with titration codeine [CODEINE] Allergy Intermediate INSOMNIA Verified 01/20/21 11:33 Penicillins [PENICILLINS] Allergy Intermediate RASH Verified 01/20/21 11:33 epinephrine [EPINEPHRINE] AdvReac Intermediate Hypertensio Verified 01/20/21 11:33 n escitalopram [From LEXAPRO] AdvReac Intermediate NIGHTMARES Verified 01/20/21 11:33 sertraline [From ZOLOFT] AdvReac Intermediate NIGHTMARES Verified 01/20/21 11:33 sulfamethoxazole AdvReac Intermediate STOMACH Verified 01/20/21 11:33 [From BACTRIM] UPSET Assessment & Plan Assessment & Plan (1) Major depressive disorder, recurrent episode, severe with anxious distress: Status: Acute Code(s): F33.2 - Major depressive disorder, recurrent severe without psychotic features (2) COPD (chronic obstructive pulmonary disease): Qualifiers: COPD type: emphysema Emphysema type: centrilobular Qualified Code(s): J43.2 - Centrilobular emphysema Status: Acute Code(s): J44.9 - Chronic obstructive pulmonary disease, unspecified (3) 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 Has failed TMS MAO I considered but significant interactions with his inhaler potentially Greater than 50% of the session was spent on counseling and/or coordination of care Reason for contiued inpatient stay Substantial Risk for: inability to function and rapid decompensation
[2021-02-14] VITALS (7 sets, daily range): BP systolic 94–139; BP diastolic 56–72; PULSE 76–93; RESP 16; TEMP 36.1–36.4; O2SAT 94
[2021-02-14] MEDS: Cholecalciferol (Vitamin D3) 25 MCG TABLET 50 MCG PO (09:30)
[2021-02-14] MEDS: Divalproex Sodium Sprinkles 125 MG CAP.DR.SPR PO ×4 (09:30→20:25)
[2021-02-14] MEDS: Propranolol HCL 10 MG TABLET PO ×3 (09:31→20:25)
[2021-02-14] MEDS: Dicyclomine HCl 10 MG CAPSULE PO ×3 (09:31→20:25)
[2021-02-14] MEDS: Ascorbic Acid 500 MG TABLET 1000 MG PO (09:31)
[2021-02-14] MEDS: ALPRAZolam 0.5 MG TABLET PO ×3 (09:31→20:25)
[2021-02-14] MEDS: amLODIPine Besylate 10 MG TABLET PO (09:32)
[2021-02-14] MEDS: predniSONE 10 MG TABLET PO (09:32)
[2021-02-14] MEDS: Fluticasone/Vilanterol 200/25 BLST.W.DEV 1 PUFF INHALE (09:35)
[2021-02-14] MEDS: Albuterol Sulfate 90 MCG 8 GM INHALER 2 PUFF INHALE ×2 (11:42→20:54)
--- NOTE | 2021-02-14 14:12 | PC.NURSE ---
Pt's dressing changed to bilateral knees, purulent drainage to left knee, right knee no drainage noted. Slight red area to coccyx noted. Pt denies pain/discomfort.
[2021-02-14 20:11] LABS: Vitamin D 25-OH, D2 <4 ng/mL; Vitamin D 25-OH, D3 44 ng/mL; Vitamin D 25-OH, Total 44 ng/mL (30-100)
[2021-02-14] MEDS: Famotidine 20 MG TABLET 40 MG PO (20:25)
[2021-02-14] MEDS: OLANZapine 5 MG TABLET PO (20:26)
--- NOTE | 2021-02-14 21:39 | HO.PSYCHPN ---
Subjective Subjective Date of Service: 02/14/21 Reason For Visit: depression Subjective Notes: Conditional Voluntary Healthcare Proxy: Yes Interim History: pt anxious depressed ruminating some improvement with alprazolam inc depakote Medication Compliance: Yes Side effects from medications: Yes Attending Groups: Yes Mental Status Exam Mental Status Exam Narrative: Patient improved affect when around people otherwise anxious dysphoric needs much reassurance this continues increased ability to reflect Patient Appearance: Fatigued and Disheveled Patient Orientation: Person, Place, Time and Situation Level of Consciousness: Appropriate and Alert Patient Behavior: Appropriate, Anxious, Fatigued and Good Eye Contact Mood Description: Anxious, Sad and Apprehensive Affect Description: Anxious, Sad and Apprehensive Patient Cognition Impaired: Yes Ability to Follow Directions: Fair Speech Pattern: Impoverished Memory Description: Immediate Impaired and Working Impaired Hallucinations: None Thought Content: positive for Obsessional Thoughts and positive for Preoccupation Depressive Symptoms: Increased Anxiety, Increased Irritability, Changes in Appetite, Crying Spells, Loss of Int. in Activity, Feelings of Worthlessness and Hopelessness Judgement: Fair Judgement and Insight: Diagnostics Vital Signs (24Hr): Vital Signs - 24 hr 02/14/21 06:00 02/14/21 09:31 02/14/21 09:32 Temperature 97.5 F Pulse Rate 78 76 76 Respiratory Rate 16 Blood Pressure 94/56 L 100/60 100/60 Pulse Oximetry 94 02/14/21 15:03 02/14/21 17:18 02/14/21 20:24 Temperature 96.9 F Pulse Rate 80 80 93 Respiratory Rate Blood Pressure 100/60 127/72 139/70 Pulse Oximetry 02/14/21 20:25 Temperature Pulse Rate 93 Respiratory Rate Blood Pressure 139/70 Pulse Oximetry Body Mass Index 29.0 Labs Results: 02/10/21 10:12 02/11/21 08:59 Labs: Laboratory Results - last 48 hr 02/11/21 02/11/21 08:59 08:59 Vitamin B12 1082 H 25-OH Vitamin D Total 44 25-Hydroxy Vitamin D2 <4 25-Hydroxy Vitamin D3 44 Folate 7.3 Medications Medications Current Medications Generic Name Dose Route Start Last Admin Trade Name Freq PRN Reason Stop Dose Admin Acetaminophen 650 mg 02/10/21 12:49 Acetaminophen 325 Mg Tablet PO Q6H PRN Headache/Pain Mild Scale (1-3) Al Hydroxide/Mg Hydroxide 30 ml 02/10/21 12:49 02/13/21 17:15 Magnesium Hydrox/Alum Hydrox 30 Ml Oral.Susp PO 30 ml Q6H PRN Administration Heartburn/Nausea Albuterol Sulfate 2 puff 02/10/21 12:49 02/14/21 20:54 Albuterol Sulfate 90 Mcg 8 Gm Inhaler INHALE 2 puff Q4H PRN Administration Shortness Of Breath Alprazolam 0.5 mg 02/12/21 15:00 02/14/21 20:25 Alprazolam 0.5 Mg Tablet PO 0.5 mg TID ÁLVARO Administration Alprazolam 0.5 mg 02/12/21 16:42 02/13/21 12:28 Alprazolam 0.5 Mg Tablet PO 0.5 mg BID PRN Administration anxiety/restlessness Amlodipine Besylate 10 mg 02/11/21 09:00 02/14/21 09:32 Amlodipine Besylate 10 Mg Tablet PO 10 mg DAILY ÁLVARO Administration Protocol Ascorbic Acid 1,000 mg 02/11/21 09:00 02/14/21 09:31 Ascorbic Acid 500 Mg Tablet PO 1,000 mg DAILY ÁLVARO Administration Dicyclomine HCl 10 mg 02/10/21 21:00 02/14/21 20:25 Dicyclomine Hcl 10 Mg Capsule PO 10 mg TID ÁLVARO Administration Divalproex Sodium 125 mg 02/10/21 15:00 02/14/21 20:25 Divalproex Sodium Sprinkles 125 Mg Cap. PO 125 mg TID ÁLVARO Administration Divalproex Sodium 125 mg 02/14/21 09:00 02/14/21 09:30 Divalproex Sodium Sprinkles 125 Mg Cap. PO 125 mg DAILY ÁLVARO Administration Famotidine 40 mg 02/10/21 21:00 02/14/21 20:25 Famotidine 20 Mg Tablet PO 40 mg BEDTIME ÁLVARO Administration Fluticasone/Vilanterol 1 puff 02/11/21 08:00 02/14/21 09:35 Fluticasone/Vilanterol 200/25 Blst.W.Dev INHALE 1 puff RDAILY ÁLVARO Administration Magnesium Hydroxide 30 ml 02/10/21 12:49 Milk Of Magnesia 30 Ml Oral.Susp PO DAILY PRN Constipation Multivitamins/Minerals 1 tab 02/11/21 09:00 02/14/21 09:31 Multivitamin With Minerals Tablet PO 1 tab DAILY ÁLVARO Administration Patient Own 1 each 02/10/21 19:17 02/14/21 18:13 Medication ( INHALE 1 each Levalbuterol Hcl Q4H PRN Administration 45mcg/Actation) Shortness Of Breath Or Wheezing Olanzapine 5 mg 02/10/21 21:00 02/14/21 20:26 Olanzapine 5 Mg Tablet PO 5 mg BEDTIME ÁLVARO Administration Olanzapine 2.5 mg 02/10/21 12:49 02/12/21 13:47 Olanzapine 2.5 Mg Tablet PO 2.5 mg Q6H PRN Administration Anxiety Prednisone 10 mg 02/11/21 09:00 02/14/21 09:32 Prednisone 10 Mg Tablet PO 10 mg DAILY ÁLVARO Administration Propranolol HCl 10 mg 02/10/21 21:00 02/14/21 20:25 Propranolol Hcl 10 Mg Tablet PO 10 mg TID ÁLVARO Administration Protocol Tiotropium [place] 2 puff 02/11/21 08:00 02/14/21 09:35 Tiotropium [place] 18 Mcg Cap.W.Dev INHALE 2 puff RDAILY ÁLVARO Administration Trazodone HCl 50 mg 02/10/21 12:49 Trazodone Hcl 50 Mg Tablet PO BEDTIME PRN Insomnia Vitamin D 50 mcg 02/11/21 09:00 02/14/21 09:30 Cholecalciferol (Vitamin D3) 25 Mcg Tablet PO 50 mcg DAILY ÁLVARO Administration Allergies Allergies Allergy/AdvReac Type Severity Reaction Status Date / Time lamotrigine [From LAMICTAL] Allergy Severe agitation Verified 01/20/21 11:33 and anxiety with titration codeine [CODEINE] Allergy Intermediate INSOMNIA Verified 01/20/21 11:33 Penicillins [PENICILLINS] Allergy Intermediate RASH Verified 01/20/21 11:33 epinephrine [EPINEPHRINE] AdvReac Intermediate Hypertensio Verified 01/20/21 11:33 n escitalopram [From LEXAPRO] AdvReac Intermediate NIGHTMARES Verified 01/20/21 11:33 sertraline [From ZOLOFT] AdvReac Intermediate NIGHTMARES Verified 01/20/21 11:33 sulfamethoxazole AdvReac Intermediate STOMACH Verified 01/20/21 11:33 [From BACTRIM] UPSET Assessment & Plan Assessment & Plan (1) Major depressive disorder, recurrent episode, severe with anxious distress: Status: Acute Code(s): F33.2 - Major depressive disorder, recurrent severe without psychotic features (2) COPD (chronic obstructive pulmonary disease): Qualifiers: COPD type: emphysema Emphysema type: centrilobular Qualified Code(s): J43.2 - Centrilobular emphysema Status: Acute Code(s): J44.9 - Chronic obstructive pulmonary disease, unspecified (3) 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 Has failed TMS MAO I considered but significant interactions with his inhaler potentially will inc depakote d/c planning Greater than 50% of the session was spent on counseling and/or coordination of care Reason for contiued inpatient stay Substantial Risk for: inability to function and rapid decompensation
[2021-02-14] MEDS: Magnesium Hydrox/Alum Hydrox 30 ML ORAL.SUSP PO (22:23)
[2021-02-15 06:30] VITALS: BP 121/65; PULSE 73; RESP 16; TEMP 36.9; O2SAT 95
[2021-02-15] MEDS: Ascorbic Acid 500 MG TABLET 1000 MG PO (08:07)
[2021-02-15 08:08] VITALS: BP 122/66; PULSE 75
[2021-02-15] MEDS: Cholecalciferol (Vitamin D3) 25 MCG TABLET 50 MCG PO (08:08)
[2021-02-15] MEDS: predniSONE 10 MG TABLET PO (08:08)
[2021-02-15] MEDS: ALPRAZolam 0.5 MG TABLET PO ×3 (08:08→20:23)
[2021-02-15] MEDS: Divalproex Sodium Sprinkles 125 MG CAP.DR.SPR PO ×3 (08:08→14:43)
[2021-02-15] MEDS: Dicyclomine HCl 10 MG CAPSULE PO ×3 (08:08→20:23)
[2021-02-15] MEDS: Propranolol HCL 10 MG TABLET PO ×3 (08:08→20:22)
[2021-02-15 08:09] VITALS: BP 122/66; PULSE 75
[2021-02-15] MEDS: amLODIPine Besylate 10 MG TABLET PO (08:09)
[2021-02-15] MEDS: Fluticasone/Vilanterol 200/25 BLST.W.DEV 1 PUFF INHALE (08:50)
--- NOTE | 2021-02-15 10:20 | HO.PSYCHPN ---
Subjective Subjective Date of Service: 02/15/21 Reason For Visit: depression Subjective Notes: Conditional Voluntary Guardianship: No Interim History: Patient complains of fatigue ruminating able to integrate some recommendations which tone and mood Raynaud's and being a mom to Medication Compliance: Yes Side effects from medications: Yes Mental Status Exam Mental Status Exam Narrative: Patient improved affect when around people otherwise anxious dysphoric needs much reassurance this continues increased ability to reflect Patient Appearance: Fatigued Patient Orientation: Person, Place, Time and Situation Level of Consciousness: Appropriate and Alert Patient Behavior: Appropriate, Anxious, Fatigued and Good Eye Contact Mood Description: Anxious, Sad and Apprehensive Affect Description: Anxious, Flat and Apprehensive Patient Cognition Impaired: Yes Ability to Follow Directions: Fair Speech Pattern: Impoverished Memory Description: Working Impaired Hallucinations: None Thought Content: positive for Obsessional Thoughts and positive for Preoccupation Depressive Symptoms: Increased Anxiety, Increased Irritability, Changes in Appetite, Crying Spells, Loss of Int. in Activity, Feelings of Worthlessness and Hopelessness Judgement: Fair Judgement and Insight: Diagnostics Vital Signs (24Hr): Vital Signs - 24 hr 02/14/21 15:03 02/14/21 17:18 02/14/21 20:24 Temperature 96.9 F Pulse Rate 80 80 93 Respiratory Rate Blood Pressure 100/60 127/72 139/70 Pulse Oximetry 02/14/21 20:25 02/15/21 06:30 02/15/21 08:08 Temperature 98.4 F Pulse Rate 93 73 75 Respiratory Rate 16 Blood Pressure 139/70 121/65 122/66 Pulse Oximetry 95 02/15/21 08:09 Temperature Pulse Rate 75 Respiratory Rate Blood Pressure 122/66 Pulse Oximetry Body Mass Index 29.0 Labs Results: 02/10/21 10:12 02/11/21 08:59 Labs: Laboratory Results - last 48 hr 02/11/21 08:59 25-OH Vitamin D Total 44 25-Hydroxy Vitamin D2 <4 25-Hydroxy Vitamin D3 44 Medications Medications Current Medications Generic Name Dose Route Start Last Admin Trade Name Freq PRN Reason Stop Dose Admin Acetaminophen 650 mg 02/10/21 12:49 Acetaminophen 325 Mg Tablet PO Q6H PRN Headache/Pain Mild Scale (1-3) Al Hydroxide/Mg Hydroxide 30 ml 02/10/21 12:49 02/14/21 22:23 Magnesium Hydrox/Alum Hydrox 30 Ml Oral.Susp PO 30 ml Q6H PRN Administration Heartburn/Nausea Albuterol Sulfate 2 puff 02/10/21 12:49 02/14/21 20:54 Albuterol Sulfate 90 Mcg 8 Gm Inhaler INHALE 2 puff Q4H PRN Administration Shortness Of Breath Alprazolam 0.5 mg 02/12/21 15:00 02/15/21 08:08 Alprazolam 0.5 Mg Tablet PO 0.5 mg TID ÁLVARO Administration Alprazolam 0.5 mg 02/12/21 16:42 02/13/21 12:28 Alprazolam 0.5 Mg Tablet PO 0.5 mg BID PRN Administration anxiety/restlessness Amlodipine Besylate 10 mg 02/11/21 09:00 02/15/21 08:09 Amlodipine Besylate 10 Mg Tablet PO 10 mg DAILY ÁLVARO Administration Protocol Ascorbic Acid 1,000 mg 02/11/21 09:00 02/15/21 08:07 Ascorbic Acid 500 Mg Tablet PO 1,000 mg DAILY ÁLVARO Administration Dicyclomine HCl 10 mg 02/10/21 21:00 02/15/21 08:08 Dicyclomine Hcl 10 Mg Capsule PO 10 mg TID ÁLVARO Administration Divalproex Sodium 125 mg 02/10/21 15:00 02/15/21 08:08 Divalproex Sodium Sprinkles 125 Mg Cap PO 125 mg TID ÁLVARO Administration Divalproex Sodium 125 mg 02/14/21 09:00 02/15/21 08:09 Divalproex Sodium Sprinkles 125 Mg Cap PO 125 mg DAILY ÁLVARO Administration Famotidine 40 mg 02/10/21 21:00 02/14/21 20:25 Famotidine 20 Mg Tablet PO 40 mg BEDTIME ÁLVARO Administration Fluticasone/Vilanterol 1 puff 02/11/21 08:00 02/15/21 08:50 Fluticasone/Vilanterol 200/25 Blst.W.Dev INHALE 1 puff RDAILY ÁLVARO Administration Magnesium Hydroxide 30 ml 02/10/21 12:49 Milk Of Magnesia 30 Ml Oral.Susp PO DAILY PRN Constipation Multivitamins/Minerals 1 tab 02/11/21 09:00 02/15/21 08:07 Multivitamin With Minerals Tablet PO 1 tab DAILY ÁLVARO Administration Patient Own 1 each 02/10/21 19:17 02/14/21 18:13 Medication ( INHALE 1 each Levalbuterol Hcl Q4H PRN Administration 45mcg/Actation) Shortness Of Breath Or Wheezing Olanzapine 5 mg 02/10/21 21:00 02/14/21 20:26 Olanzapine 5 Mg Tablet PO 5 mg BEDTIME ÁLVARO Administration Olanzapine 2.5 mg 02/10/21 12:49 02/12/21 13:47 Olanzapine 2.5 Mg Tablet PO 2.5 mg Q6H PRN Administration Anxiety Prednisone 10 mg 02/11/21 09:00 02/15/21 08:08 Prednisone 10 Mg Tablet PO 10 mg DAILY ÁLVARO Administration Propranolol HCl 10 mg 02/10/21 21:00 02/15/21 08:08 Propranolol Hcl 10 Mg Tablet PO 10 mg TID ÁLVARO Administration Protocol Tiotropium [place] 2 puff 02/11/21 08:00 02/15/21 08:50 Tiotropium [place] 18 Mcg Cap.W.Dev INHALE 2 puff RDAILY ÁLVARO Administration Trazodone HCl 50 mg 02/10/21 12:49 Trazodone Hcl 50 Mg Tablet PO BEDTIME PRN Insomnia Vitamin D 50 mcg 02/11/21 09:00 02/15/21 08:08 Cholecalciferol (Vitamin D3) 25 Mcg Tablet PO 50 mcg DAILY ÁLVARO Administration Allergies Allergies Allergy/AdvReac Type Severity Reaction Status Date / Time lamotrigine [From LAMICTAL] Allergy Severe agitation Verified 01/20/21 11:33 and anxiety with titration codeine [CODEINE] Allergy Intermediate INSOMNIA Verified 01/20/21 11:33 Penicillins [PENICILLINS] Allergy Intermediate RASH Verified 01/20/21 11:33 epinephrine [EPINEPHRINE] AdvReac Intermediate Hypertensio Verified 01/20/21 11:33 n escitalopram [From LEXAPRO] AdvReac Intermediate NIGHTMARES Verified 01/20/21 11:33 sertraline [From ZOLOFT] AdvReac Intermediate NIGHTMARES Verified 01/20/21 11:33 sulfamethoxazole AdvReac Intermediate STOMACH Verified 01/20/21 11:33 [From BACTRIM] UPSET Assessment & Plan Assessment & Plan (1) Major depressive disorder, recurrent episode, severe with anxious distress: Status: Acute Code(s): F33.2 - Major depressive disorder, recurrent severe without psychotic features (2) COPD (chronic obstructive pulmonary disease): Qualifiers: COPD type: emphysema Emphysema type: centrilobular Qualified Code(s): J43.2 - Centrilobular emphysema Status: Acute Code(s): J44.9 - Chronic obstructive pulmonary disease, unspecified (3) 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
[2021-02-15 14:43] VITALS: BP 135/61; PULSE 88
[2021-02-15 18:00] VITALS: BP 122/61; PULSE 82; TEMP 36
[2021-02-15 20:22] VITALS: BP 122/61; PULSE 82
[2021-02-15] MEDS: Famotidine 20 MG TABLET 40 MG PO (20:23)
[2021-02-15] MEDS: OLANZapine 5 MG TABLET PO (20:24)
[2021-02-15] MEDS: Magnesium Hydrox/Alum Hydrox 30 ML ORAL.SUSP PO (20:52)
[2021-02-15] MEDS: Divalproex Sodium Sprinkles 125 MG CAP.DR.SPR 250 MG PO (21:13)
[2021-02-16 06:00] VITALS: BP 127/66; PULSE 63; RESP 18; TEMP 36.6; O2SAT 95
[2021-02-16 07:00] VITALS: BMI 28.5
[2021-02-16] MEDS: Divalproex Sodium Sprinkles 125 MG CAP.DR.SPR 250 MG PO ×2 (09:18→21:09)
[2021-02-16] MEDS: ALPRAZolam 0.5 MG TABLET PO ×3 (09:18→21:09)
[2021-02-16] MEDS: Dicyclomine HCl 10 MG CAPSULE PO ×3 (09:19→21:09)
[2021-02-16] MEDS: Ascorbic Acid 500 MG TABLET 1000 MG PO (09:19)
[2021-02-16] MEDS: predniSONE 10 MG TABLET PO (09:19)
[2021-02-16 09:21] VITALS: BP 122/67; PULSE 77
[2021-02-16] MEDS: Propranolol HCL 10 MG TABLET PO ×3 (09:21→21:09)
[2021-02-16] MEDS: Cholecalciferol (Vitamin D3) 25 MCG TABLET 50 MCG PO (09:21)
[2021-02-16] MEDS: amLODIPine Besylate 10 MG TABLET PO (09:22)
[2021-02-16] MEDS: Fluticasone/Vilanterol 200/25 BLST.W.DEV 1 PUFF INHALE (09:24)
[2021-02-16 10:03] LABS: Valproate 40.6 mcg/mL (50.0-100.0)
[2021-02-16 14:21] VITALS: BP 115/67; PULSE 89
[2021-02-16] MEDS: Divalproex Sodium Sprinkles 125 MG CAP.DR.SPR PO (14:21)
[2021-02-16 18:00] VITALS: BP 129/72; PULSE 83; TEMP 36.2
[2021-02-16] MEDS: Magnesium Hydrox/Alum Hydrox 30 ML ORAL.SUSP PO (19:49)
--- NOTE | 2021-02-16 20:11 | HO.PSYCHPN ---
Subjective Subjective Date of Service: 02/16/21 Reason For Visit: depression Subjective Notes: Conditional Voluntary Interim History: Patient patient proved quite anxious about discharge and ability to stay stable denies active self-harm Medication Compliance: Yes Attending Groups: Yes Mental Status Exam Mental Status Exam Narrative: Patient improved affect when around people otherwise anxious dysphoric needs much reassurance this continues increased ability to reflect Patient Appearance: Fatigued Patient Orientation: Person, Place, Time and Situation Level of Consciousness: Appropriate and Alert Patient Behavior: Appropriate, Anxious, Fatigued and Good Eye Contact Mood Description: Anxious, Sad and Apprehensive Affect Description: Anxious, Flat and Apprehensive Patient Cognition Impaired: Yes Ability to Follow Directions: Good Speech Pattern: Monotone Memory Description: Working Impaired Hallucinations: None Delusions: Not Present Thought Content: positive for Obsessional Thoughts and positive for Preoccupation Depressive Symptoms: Increased Anxiety, Increased Irritability, Changes in Appetite, Crying Spells, Loss of Int. in Activity, Feelings of Worthlessness and Hopelessness Judgement and Insight: Improving Diagnostics Vital Signs (24Hr): Vital Signs - 24 hr 02/15/21 20:22 02/16/21 06:00 02/16/21 09:21 Temperature 98 F Pulse Rate 82 63 77 Respiratory Rate 18 Blood Pressure 122/61 127/66 122/67 Pulse Oximetry 95 02/16/21 14:21 Temperature Pulse Rate 89 Respiratory Rate Blood Pressure 115/67 Pulse Oximetry Body Mass Index 28.5 Labs Results: 02/10/21 10:12 02/11/21 08:59 Labs: Laboratory Results - last 48 hr 02/11/21 02/16/21 08:59 08:47 25-OH Vitamin D Total 44 25-Hydroxy Vitamin D2 <4 25-Hydroxy Vitamin D3 44 Valproic Acid 40.6 L Medications Medications Current Medications Generic Name Dose Route Start Last Admin Trade Name Freq PRN Reason Stop Dose Admin Acetaminophen 650 mg 02/10/21 12:49 Acetaminophen 325 Mg Tablet PO Q6H PRN Headache/Pain Mild Scale (1-3) Al Hydroxide/Mg Hydroxide 30 ml 02/10/21 12:49 02/16/21 19:49 Magnesium Hydrox/Alum Hydrox 30 Ml Oral.Susp PO 30 ml Q6H PRN Administration Heartburn/Nausea Albuterol Sulfate 2 puff 02/10/21 12:49 02/14/21 20:54 Albuterol Sulfate 90 Mcg 8 Gm Inhaler INHALE 2 puff Q4H PRN Administration Shortness Of Breath Alprazolam 0.5 mg 02/12/21 15:00 02/16/21 14:21 Alprazolam 0.5 Mg Tablet PO 0.5 mg TID ÁLVARO Administration Alprazolam 0.5 mg 02/12/21 16:42 02/15/21 13:27 Alprazolam 0.5 Mg Tablet PO 0.5 mg BID PRN Administration anxiety/restlessness Amlodipine Besylate 10 mg 02/11/21 09:00 02/16/21 09:22 Amlodipine Besylate 10 Mg Tablet PO 10 mg DAILY ÁLVARO Administration Protocol Ascorbic Acid 1,000 mg 02/11/21 09:00 02/16/21 09:19 Ascorbic Acid 500 Mg Tablet PO 1,000 mg DAILY ÁLVARO Administration Dicyclomine HCl 10 mg 02/10/21 21:00 02/16/21 14:21 Dicyclomine Hcl 10 Mg Capsule PO 10 mg TID ÁLVARO Administration Divalproex Sodium 250 mg 02/15/21 21:00 02/16/21 09:18 Divalproex Sodium Sprinkles 125 Mg Cap. PO 250 mg BID ÁLVARO Administration Divalproex Sodium 125 mg 02/16/21 13:00 02/16/21 14:21 Divalproex Sodium Sprinkles 125 Mg CapSpr PO 125 mg DAILY@1300 ÁLVARO Administration Famotidine 40 mg 02/10/21 21:00 02/15/21 20:23 Famotidine 20 Mg Tablet PO 40 mg BEDTIME ÁLVARO Administration Fluticasone/Vilanterol 1 puff 02/11/21 08:00 02/16/21 09:24 Fluticasone/Vilanterol 200/25 Blst.W.Dev INHALE 1 puff RDAILY ÁLVARO Administration Magnesium Hydroxide 30 ml 02/10/21 12:49 Milk Of Magnesia 30 Ml Oral.Susp PO DAILY PRN Constipation Multivitamins/Minerals 1 tab 02/11/21 09:00 02/16/21 09:19 Multivitamin With Minerals Tablet PO 1 tab DAILY ÁLVARO Administration Patient Own 1 each 02/10/21 19:17 02/16/21 13:33 Medication ( INHALE 1 each Levalbuterol Hcl Q4H PRN Administration 45mcg/Actation) Shortness Of Breath Or Wheezing Olanzapine 5 mg 02/10/21 21:00 02/15/21 20:24 Olanzapine 5 Mg Tablet PO 5 mg BEDTIME ÁLVARO Administration Olanzapine 2.5 mg 02/10/21 12:49 02/12/21 13:47 Olanzapine 2.5 Mg Tablet PO 2.5 mg Q6H PRN Administration Anxiety Prednisone 10 mg 02/11/21 09:00 02/16/21 09:19 Prednisone 10 Mg Tablet PO 10 mg DAILY ÁLVARO Administration Propranolol HCl 10 mg 02/10/21 21:00 02/16/21 14:21 Propranolol Hcl 10 Mg Tablet PO 10 mg TID ÁLVARO Administration Protocol Tiotropium [place] 2 puff 02/11/21 08:00 02/16/21 09:24 Tiotropium [place] 18 Mcg Cap.W.Dev INHALE 2 puff RDAILY ÁLVARO Administration Trazodone HCl 50 mg 02/10/21 12:49 Trazodone Hcl 50 Mg Tablet PO BEDTIME PRN Insomnia Vitamin D 50 mcg 02/11/21 09:00 02/16/21 09:21 Cholecalciferol (Vitamin D3) 25 Mcg Tablet PO 50 mcg DAILY ÁLVARO Administration Allergies Allergies Allergy/AdvReac Type Severity Reaction Status Date / Time lamotrigine [From LAMICTAL] Allergy Severe agitation Verified 01/20/21 11:33 and anxiety with titration codeine [CODEINE] Allergy Intermediate INSOMNIA Verified 01/20/21 11:33 Penicillins [PENICILLINS] Allergy Intermediate RASH Verified 01/20/21 11:33 epinephrine [EPINEPHRINE] AdvReac Intermediate Hypertensio Verified 01/20/21 11:33 n escitalopram [From LEXAPRO] AdvReac Intermediate NIGHTMARES Verified 01/20/21 11:33 sertraline [From ZOLOFT] AdvReac Intermediate NIGHTMARES Verified 01/20/21 11:33 sulfamethoxazole AdvReac Intermediate STOMACH Verified 01/20/21 11:33 [From BACTRIM] UPSET Assessment & Plan Assessment & Plan (1) Major depressive disorder, recurrent episode, severe with anxious distress: Status: Acute Code(s): F33.2 - Major depressive disorder, recurrent severe without psychotic features (2) COPD (chronic obstructive pulmonary disease): Qualifiers: COPD type: emphysema Emphysema type: centrilobular Qualified Code(s): J43.2 - Centrilobular emphysema Status: Acute Code(s): J44.9 - Chronic obstructive pulmonary disease, unspecified (3) 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
[2021-02-16 21:09] VITALS: BP 129/72; PULSE 83
[2021-02-16] MEDS: OLANZapine 5 MG TABLET PO (21:09)
[2021-02-16] MEDS: Famotidine 20 MG TABLET 40 MG PO (21:10)
[2021-02-17 06:00] VITALS: BP 112/65; PULSE 71; RESP 16; TEMP 36.9; O2SAT 98
[2021-02-17 08:19] VITALS: BP 111/73; PULSE 75
[2021-02-17] MEDS: Fluticasone/Vilanterol 200/25 BLST.W.DEV 1 PUFF INHALE (08:19)
[2021-02-17] MEDS: Propranolol HCL 10 MG TABLET PO ×2 (08:19→13:56)
[2021-02-17] MEDS: amLODIPine Besylate 10 MG TABLET PO (08:20)
[2021-02-17] MEDS: ALPRAZolam 0.5 MG TABLET PO ×3 (08:20→14:36)
[2021-02-17] MEDS: Dicyclomine HCl 10 MG CAPSULE PO ×2 (08:20→13:56)
[2021-02-17] MEDS: Ascorbic Acid 500 MG TABLET 1000 MG PO (08:20)
[2021-02-17] MEDS: Divalproex Sodium Sprinkles 125 MG CAP.DR.SPR 250 MG PO (08:20)
[2021-02-17] MEDS: predniSONE 10 MG TABLET PO (08:20)
[2021-02-17] MEDS: Cholecalciferol (Vitamin D3) 25 MCG TABLET 50 MCG PO (08:20)
--- NOTE | 2021-02-17 11:19 | PM.PSYDC ---
DS: Providers Provider Date of Service: 02/17/21 Date of admission: 02/10/21 12:28 Primary care physician: Jin Bonilla MD Consults: 02/10/21 12:49 Consult to Hospitalist Routine Consulting Provider: Hospitalist Reason For Exam: PREOP ECT 02/10/21 14:55 Consult to Pulmonology Routine Consulting Provider: Larry Lisa Reason for consultation: RECOMMENDATION ? OK FOR ECT DS: Diagnosis Discharge Diagnosis (1) Major depressive disorder, recurrent episode, severe with anxious distress: Status: Acute (2) COPD (chronic obstructive pulmonary disease): Status: Acute (3) 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: Status: Acute (4) Generalized anxiety disorder: Status: Acute DS: Medications Discharge Medications Home Medications: Home Medications Medication Instructions Recorded Confirmed Spiriva Respimat 2 puff PO DAILY 07/08/20 01/20/21 amlodipine 1 tab PO DAILY 07/08/20 02/10/21 ascorbic acid (vitamin C) 1,000 mg 1,000 mg PO DAILY 07/21/20 02/10/21 tablet cholecalciferol (vitamin D3) 25 50 mcg PO DAILY cap 07/21/20 02/10/21 mcg (1,000 unit) capsule jghbhzib-guq-tultc acid 0.4 1 tab PO DAILY 07/21/20 12/26/20 mg-lycopene 300 mcg-lutein 250 mcg tablet zinc acetate 25 mg (zinc) capsule 25 mg PO DAILY 07/21/20 01/20/21 Spiriva Respimat 2 puff INHALATION DAILY 02/10/21 02/10/21 famotidine 40 mg PO BEDTIME 02/10/21 02/10/21 fluticasone propion-salmeterol 1 inh INHALATION BID 02/10/21 02/10/21 [Advair Diskus] levalbuterol HCl [Xopenex] 1.25 mg INHALATION Q4-6H PRN 02/10/21 02/10/21 multivitamin-iron (hematinic) 1 tab PO DAILY 02/10/21 02/10/21 propranolol 10 mg PO TID 02/10/21 02/10/21 Previous Rx's Medication Instructions Recorded albuterol sulfate 90 mcg/actuation 2 inh INHALATION Q4-6H PRN #1 ea 07/27/20 breath activated powder inhaler levalbuterol tartrate 45 2 puff INHALATION Q4H PRN #15 g 07/27/20 mcg/actuation aerosol inhaler prednisone 10 mg tablet 10 mg PO DAILY 30 Days #30 tab 10/13/20 azithromycin 250 mg tablet 250 mg PO 3XW 28 Days #12 tab 12/26/20 alprazolam 0.5 mg PO TID 30 Days #120 tab 02/17/21 dicyclomine 10 mg PO TID #0 cap 02/17/21 divalproex 250 mg PO BID 30 Days #150 cap 02/17/21 olanzapine [Zyprexa] 5 mg PO BEDTIME #90 tab 02/17/21 Discharge Plan Discharge Patient Disposition: Home, Self-Care Discharge Diagnosis: major depression recurrent panic dx generalized anxiety dx Referrals: Volunteering at [facility] [Other] - 1 Week Volunteering at [facility] [Other] - 1 Week Laurie (Therapy) [Other] - 02/22/21 2:00 pm (This appointment is via Telehealth) Mervin Maya (Psychiatry) [Other] - 03/10/21 8:00 am (This appointment is via Telehealth) Mervin Maya (Psychiatry) [Other] - 04/05/21 1:00 pm (This appointment is via Telehealth) Justa Bone MD [Physician] - 02/24/21 10:30 am (IN OFFICE) Discharge Medications: New alprazolam 0.5 mg Tablet 0.5 mg PO TID 30 Days Qty: 120 RF: 0 divalproex 125 mg Capsule, Delayed Rel Sprinkle 250 mg PO BID 30 Days Qty: 150 RF: 0 Continued ProAir RespiClick 90 mcg/actuation aerosol powdr breath activated 2 inh inhalation Q4-6H PRN (Reason: Shortness Of Breath) Qty: 1 RF: 3 levalbuterol tartrate 45 mcg/actuation HFA aerosol inhaler 2 puff inhalation Q4H PRN (Reason: shortness of breath or wheezing) Qty: 15 RF: 11 amlodipine 10 mg tablet 1 tab PO DAILY RF: 0 Spiriva Respimat 2.5 mcg/actuation mist 2 puff PO DAILY RF: 0 fluticasone propion-salmeterol [Advair Diskus] 500-50 mcg/dose Blister With Device 1 inh INHALATION BID RF: 0 levalbuterol HCl [Xopenex] 1.25 mg/3 mL Solution For Nebulization 1.25 mg INHALATION Q4-6H PRN (Reason: Shortness Of Breath Or Wheezing) RF: 0 multivitamin-iron (hematinic) Tablet 1 tab PO DAILY RF: 0 Spiriva Respimat 1.25 mcg/actuation Mist 2 puff INHALATION DAILY RF: 0 propranolol 10 mg Tablet 10 mg PO TID RF: 0 famotidine 40 mg Tablet 40 mg PO BEDTIME RF: 0 olanzapine [Zyprexa] 5 mg tablet 5 mg PO BEDTIME Qty: 90 RF: 0 azithromycin 250 mg tablet 250 mg PO 3XW 28 Days Qty: 12 RF: 6 ascorbic acid (vitamin C) 1,000 mg tablet 1,000 mg PO DAILY RF: 0 Spectravite Adult 50 Plus 0.4-300-250 mg-mcg-mcg tablet 1 tab PO DAILY RF: 0 zinc acetate 25 mg (zinc) capsule 25 mg PO DAILY RF: 0 cholecalciferol (vitamin D3) 25 mcg (1,000 unit) capsule 50 mcg PO DAILY RF: 0 prednisone 10 mg tablet 10 mg PO DAILY 30 Days Qty: 30 RF: 4 Changed dicyclomine 10 mg capsule 10 mg PO TID Qty: 0 RF: 0 Discontinued prednisone 20 mg tablet 20 mg PO DAILY 10 Days Qty: 15 RF: 0 famotidine 40 mg tablet 1 tab PO BEDTIME RF: 0 lorazepam 1 mg tablet 1 mg PO TID PRN (Reason: anxiety) Qty: 90 RF: 0 propranolol 10 mg tablet 1 tab PO TID Qty: 270 RF: 0 famotidine [Pepcid] 20 mg Tablet 20 mg PO TID RF: 0 valproate sodium RF: 0 prednisone 10 mg tablet 10 mg PO DAILY 30 Days Qty: 30 RF: 2 prednisone 20 mg tablet 20 mg PO DAILY 10 Days Qty: 15 RF: 0 Discharge Orders: Discharge Order (Routine); Ordered 02/17/21 Ordered By: Nacho Peña Diet: advance to usual diet Activity on Discharge: As tolerated Stand Alone Forms: Patient Portal Discharge page, Community Support Care Plan Goals: Improved mood decrease anxiety better stress tolerance concentration and functioning Health Concerns: Recurrent depression Generalized anxiety Panic disorder COPD Plan of Treatment: 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 Psychiatric follow-up and counseling Strongly urge structure volunteer work socialization Consider classes at the [facility] Assessment: Mood improved future oriented not requiring oxygen while on the unit Discharge Date/Time: 02/17/21 15:48 Mental Status Exam Mental Status Exam Narrative: Patient improved affect when around people otherwise anxious dysphoric needs much reassurance this continues increased ability to reflect Patient Appearance: Appropriate Patient Orientation: Person, Place, Time and Situation Level of Consciousness: Appropriate and Alert Patient Behavior: Appropriate and Good Eye Contact Mood Description: Apprehensive Affect Description: Blunted and Apprehensive Patient Cognition Impaired: Yes Ability to Follow Directions: Good Speech Pattern: Monotone Memory Description: Working Impaired Hallucinations: None Delusions: Not Present Thought Process: Intact Thought Content: positive for Obsessional Thoughts and positive for Preoccupation Depressive Symptoms: Increased Anxiety, Increased Irritability, Changes in Appetite, Crying Spells, Loss of Int. in Activity, Feelings of Worthlessness and Hopelessness Judgement: Fair Judgement and Insight: Improving Data Data Completed and Pending Completed studies during hospitalization [Text1]: 02/10/21 02/10/21 02/11/21 11:28 11:28 08:59 Sodium 141 Potassium 4.5 Chloride 103 Carbon Dioxide 29 Anion Gap 14 BUN 18 H Creatinine 0.95 Estim Creat Clear Calc 76.0 Estimated GFR > 60 Fasting Glucose 85 Calcium 9.6 Total Bilirubin 0.6 AST 13 ALT 17 Alkaline Phosphatase 43 Total Protein 6.8 Albumin 4.3 Triglycerides 186 Cholesterol 232 LDL Cholesterol, Calc 137 HDL Cholesterol 58 Vitamin B12 25-OH Vitamin D Total 25-Hydroxy Vitamin D2 25-Hydroxy Vitamin D3 Folate TSH 1.69 Urine Color YELLOW Urine Appearance CLEAR Urine pH 6.0 Ur Specific Kelliher 1.015 Urine Protein NEG Urine Glucose (UA) NEG Urine Ketones 5 Urine Blood NEG Urine Nitrite NEG Ur Leukocyte Esterase NEG Urine RBC 0 Urine WBC 0 Ur Squamous Epith Cells NONE Urine Bacteria NONE Urine Opiates Screen Not Detected Ur Barbiturates Screen Not Detected Valproic Acid Ur Phencyclidine Scrn Not Detected Ur Amphetamines Screen Not Detected U Benzodiazepines Scrn Not Detected Urine Cocaine Screen Not Detected U Marijuana (THC) Screen Not Detected 02/11/21 02/11/21 02/16/21 08:59 08:59 08:47 Sodium Potassium Chloride Carbon Dioxide Anion Gap BUN Creatinine Estim Creat Clear Calc Estimated GFR Fasting Glucose Calcium Total Bilirubin AST ALT Alkaline Phosphatase Total Protein Albumin Triglycerides Cholesterol LDL Cholesterol, Calc HDL Cholesterol Vitamin B12 1082 H 25-OH Vitamin D Total 44 25-Hydroxy Vitamin D2 <4 25-Hydroxy Vitamin D3 44 Folate 7.3 TSH Urine Color Urine Appearance Urine pH Ur Specific Kelliher Urine Protein Urine Glucose (UA) Urine Ketones Urine Blood Urine Nitrite Ur Leukocyte Esterase Urine RBC Urine WBC Ur Squamous Epith Cells Urine Bacteria Urine Opiates Screen Ur Barbiturates Screen Valproic Acid 40.6 L Ur Phencyclidine Scrn Ur Amphetamines Screen U Benzodiazepines Scrn Urine Cocaine Screen U Marijuana (THC) Screen DS: Summary Hospital Course Hospital Course: [facility] [place] [address] Psychiatry Admission Note (In)Signed Patient: Jameel Cameron RMR#: [id number]: 2Acct:[id number]/Sex: 71 / [id number]: Nacho Peña MD cc: ~ HPI Chief Complaint: depression Sources of Information: patient interviewed and chart reviewed HPI Subjective Notes: Conditional Voluntary Guardianship: No Medical Problems Affecting Mental Status: No Narrative: Patient is a 71-year-old male patient outpatient of [facility] nurse practitioner Patient has a history of recurrent depression anxiety complicated by COPD. Has a history of past good response to ECT but has been complicated by worsening COPD and ASHD. Have avoided retreating with ECT secondary to above. He has failed trial of TMS he multiple SSRIs most recently Trintellix mirtazapine now discontinued. The question has been raised regarding the possibility of an MAO inhibitor. Patient most recently has been on lorazepam 1 t.i.d. olanzapine 5 mg at bedtime 2.5 mg the morning as needed. Patient remains paralyzed with anxiety hopeless helpless depressed marked difficulty in functioning concentration ability to enjoy things became increasingly overwhelmed thoughts he might be better off but no clear plan of self-harm. No psychotic symptoms patient does have a history of past psychiatric hospitalization. 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 Past Psychiatric History: History of good response to ECT past history of panic disorder has not been able to stabilize now for number of years despite outpatient therapy counseling partial hospital ongoing treatment with a nurse practitioner Trina iverson Medical Evaluation Reviewed: Hospitalist [place] Pending chronic copd recent prednisone [facility] Medical History Abnormal nuclear stress test CAD (coronary artery disease) Chronic respiratory failure COPD (chronic obstructive pulmonary disease) Depression HLD (hyperlipidemia) Major depressive disorder, recurrent episode, severe with anxious distress Pneumonitis Pre-op evaluation Preop cardiovascular exam Smoking Surgical History Stented coronary artery Social History: 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 He has a supportive family including sister and mother Trauma History: no history of sexual or physical trauma Diagnostics Vital Signs (24Hr):Vital Signs - 24 hr 02/10/21 09:21 Temperature 98.7 F Pulse Rate 84 Respiratory Rate 17 Blood Pressure 150/84 H Pulse Oximetry 97 Body Mass Index 29.0 Labs Results: 02/10/21 10:12 document embedded image 02/10/21 10:12 document embedded image Labs:Laboratory Results - last 48 hr 02/10/21 02/10/21 02/10/21 10:12 10:12 10:12 WBC 10.9 H RBC 5.23 Hgb 15.8 Hct 48.1 MCV 92.0 MCH 30.2 MCHC 32.8 RDW 12.5 Plt Count 222 MPV 8.6 L Immature Gran % (Auto) 0.5 H Neut % (Auto) 51.4 Lymph % (Auto) 37.3 Kimball % (Auto) 9.2 Eos % (Auto) 1.1 Baso % (Auto) 0.5 Lymph # (Auto) 4.1 Kimball # (Auto) 1.0 Eos # (Auto) 0.1 Baso # (Auto) 0.1 Abs Immat Gran (auto) 0.05 H Absolute Neuts (auto) 5.6 Absolute Nucleated RBC 0.000 Nucleated RBC % (auto) 0.0 Sodium 143 Potassium 4.0 Chloride 104 Carbon Dioxide 31 H Anion Gap 12 BUN 17 H Creatinine 0.96 Estim Creat Clear Calc 75.2 Estimated GFR > 60 Random Glucose 78 Calcium 9.7 D Total Bilirubin 0.5 AST 12 ALT 20 Alkaline Phosphatase 44 Total Protein 7.1 Albumin 4.4 Urine Color Urine Appearance Urine pH Ur Specific Kelliher Urine Protein Urine Glucose (UA) Urine Ketones Urine Blood Urine Nitrite Ur Leukocyte Esterase Urine RBC Urine WBC Ur Squamous Epith Cells Urine Bacteria Urine Opiates Screen Ur Barbiturates Screen Ur Phencyclidine Scrn Ur Amphetamines Screen U Benzodiazepines Scrn Urine Cocaine Screen U Marijuana (THC) Screen COVID-19 (MARRY) Negative COVID-19 Clin Com See Note 02/10/21 02/10/21 11:28 11:28 WBC RBC Hgb Hct MCV MCH MCHC RDW Plt Count MPV Immature Gran % (Auto) Neut % (Auto) Lymph % (Auto) Kimball % (Auto) Eos % (Auto) Baso % (Auto) Lymph # (Auto) Kimball # (Auto) Eos # (Auto) Baso # (Auto) Abs Immat Gran (auto) Absolute Neuts (auto) Absolute Nucleated RBC Nucleated RBC % (auto) Sodium Potassium Chloride Carbon Dioxide Anion Gap BUN Creatinine Estim Creat Clear Calc Estimated GFR Random Glucose Calcium Total Bilirubin AST ALT Alkaline Phosphatase Total Protein Albumin Urine Color YELLOW Urine Appearance CLEAR Urine pH 6.0 Ur Specific Kelliher 1.015 Urine Protein NEG Urine Glucose (UA) NEG Urine Ketones 5 Urine Blood NEG Urine Nitrite NEG Ur Leukocyte Esterase NEG Urine RBC 0 Urine WBC 0 Ur Squamous Epith Cells NONE Urine Bacteria NONE Urine Opiates Screen Not Detected Ur Barbiturates Screen Not Detected Ur Phencyclidine Scrn Not Detected Ur Amphetamines Screen Not Detected U Benzodiazepines Scrn Not Detected Urine Cocaine Screen Not Detected U Marijuana (THC) Screen Not Detected COVID-19 (MARRY) COVID-19 Clin Com Meds/Allergies Meds Home Medications Acetaminophen (Acetaminophen 325 Mg Tablet) 650 mg PO Q6H PRN PRN Reason: Headache/Pain Mild Scale (1-3) Al Hydroxide/Mg Hydroxide (Magnesium Hydrox/Alum Hydrox 30 Ml Oral.Susp) 30 ml PO Q6H PRN PRN Reason: Heartburn/Nausea Last Admin: 02/10/21 14:02 Dose: 30 ml Documented by: Albuterol Sulfate (Albuterol Sulfate 90 Mcg 8 Gm Inhaler) 2 puff INHALE Q4H PRN PRN Reason: Shortness Of Breath Last Admin: 02/10/21 14:32 Dose: 2 puff Documented by: Alprazolam (Alprazolam 0.25 Mg Tablet) 0.25 mg PO TID ÁLVARO Last Admin: 02/10/21 20:11 Dose: 0.25 mg Documented by: Alprazolam (Alprazolam 0.25 Mg Tablet) 0.25 mg PO BID PRN PRN Reason: anxiety/restlessness Last Admin: 02/10/21 18:29 Dose: 0.25 mg Documented by: Amlodipine Besylate (Amlodipine Besylate 10 Mg Tablet) 10 mg PO DAILY [facility]; Protocol Ascorbic Acid (Ascorbic Acid 500 Mg Tablet) 1,000 mg PO DAILY [facility] Dicyclomine HCl (Dicyclomine Hcl 10 Mg Capsule) 10 mg PO TID [facility] Last Admin: 02/10/21 21:04 Dose: Not Given Documented by: Divalproex Sodium (Divalproex Sodium Sprinkles 125 Mg Justen.Spr) 125 mg PO TID [facility] Last Admin: 02/10/21 20:11 Dose: 125 mg Documented by: Famotidine (Famotidine 20 Mg Tablet) 40 mg PO BEDTIME [facility] Last Admin: 02/10/21 20:11 Dose: 40 mg Documented by: Fluticasone/Vilanterol (Fluticasone/Vilanterol 200/25 Blst.W.Dev) 1 puff INHALE RDAILY [facility] Magnesium Hydroxide (Milk Of Magnesia 30 Ml Oral.Susp) 30 ml PO DAILY PRN PRN Reason: Constipation Multivitamins/Minerals (Multivitamin With Minerals Tablet) 1 tab PO DAILY [facility] Patient Own Medication ( Levalbuterol Hcl 45mcg/Actation) 1 each INHALE Q4H PRN PRN Reason: Shortness Of Breath Or Wheezing Olanzapine (Olanzapine 5 Mg Tablet) 5 mg PO BEDTIME [facility] Last Admin: 02/10/21 20:11 Dose: 5 mg Documented by: Olanzapine (Olanzapine 2.5 Mg Tablet) 2.5 mg PO Q6H PRN PRN Reason: Anxiety Prednisone (Prednisone 10 Mg Tablet) 10 mg PO DAILY [facility] Propranolol HCl (Propranolol Hcl 10 Mg Tablet) 10 mg PO TID [facility]; Protocol Last Admin: 02/10/21 20:10 Dose: 10 mg Documented by: Tiotropium Clovis (Tiotropium Clovis 18 Mcg Cap.W.Dev) 2 puff INHALE RDAILY [facility] Trazodone HCl (Trazodone Hcl 50 Mg Tablet) 50 mg PO BEDTIME PRN PRN Reason: Insomnia Vitamin D (Cholecalciferol (Vitamin D3) 25 Mcg Tablet) 50 mcg PO DAILY [facility] Allergies Allergies Allergy/AdvReac Type Severity Reaction Status Date / Time lamotrigine numerous antidepressant trials Allergy Severe agitation Verified 01/20/21 11:33 and anxiety with titration codeine [CODEINE] Allergy Intermediate INSOMNIA Verified 01/20/21 11:33 Penicillins [PENICILLINS] Allergy Intermediate RASH Verified 01/20/21 11:33 epinephrine [EPINEPHRINE] AdvReac Intermediate Hypertensio Verified 01/20/21 11:33 n escitalopram [From LEXAPRO] AdvReac Intermediate NIGHTMARES Verified 01/20/21 11:33 sertraline [From ZOLOFT] AdvReac Intermediate NIGHTMARES Verified 01/20/21 11:33 sulfamethoxazole AdvReac Intermediate STOMACH Verified 01/20/21 11:33 [From BACTRIM] UPSET Mental Status Exam Mental Status Exam Patient Orientation: Person, Place, Time and Situation Level of Consciousness: Awake and Alert Patient Behavior: Cooperative Mood Description: Anxious, Sad and Apprehensive Affect Description: Anxious, Sad and Apprehensive Patient Cognition Impaired: No Speech Pattern: Clear and Spontaneous Speech Memory Description: Immediate Impaired and Working Impaired Hallucinations: None Delusions: Not Present Thought Process: Rumination Thought Content: positive for Obsessional Thoughts and positive for Preoccupation Depressive Symptoms: Increased Anxiety Judgement: Good Assessment & Plan Assessment & Plan (1) Major depressive disorder, recurrent episode, severe with anxious distress: Status: Acute Code(s): F33.2 - Major depressive disorder, recurrent severe without psychotic features (2) COPD (chronic obstructive pulmonary disease): Status: Acute Qualifiers: COPD type: emphysema Emphysema type: centrilobular Qualified Code(s): J43.2 - Centrilobular emphysema Code(s): J44.9 - Chronic obstructive pulmonary disease, unspecified (3) 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 Psychiatric admission note above Hospital course The [facility] was [facility] in a severely anxious and depressed state. Patient had failed numerous trials of antidepressants mood stabilizing agents and antipsychotics either were not helpful or he was unable to tolerate. Patient did state he had periods of time where he felt significantly better but then effects would always wear off. 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 Patient had poor concentration on admission ruminating hopeless helpless despondent although not actively suicidal. Patient's main symptom targeted Yvonne was severe anxiety rumination panic and obsessional thinking. Lorazepam had not been helpful patient was started on alprazolam t.i.d. and Depakote start targeting severe anxiety. Patient had responded to ECT previously but given his COPD history of heart disease it seemed more prudent to see if we could find a medication and psychotherapy intervention. Patient was continued low-dose olanzapine. Patient became gradually less ruminating was able to set up a counter point to his catastrophic thinking. He became more social was able to come out of his room more and engaged socially more. 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
[2021-02-17 13:56] VITALS: BP 121/65; PULSE 88
[2021-02-17] MEDS: Divalproex Sodium Sprinkles 125 MG CAP.DR.SPR PO (13:56)
--- NOTE | 2021-02-21 13:40 | PM.EVENT ---
Event Note Date of Service: 02/21/21 Event Note: PATIENT CALLED STATUS POST DISCHARGE ON A COMBINATION ALPRAZOLAM AND DEPAKOTE. PATIENT COMPLAINS OF PROBLEMS WITH BALANCE AND GAIT. DEPAKOTE HELD FOR TODAY RESTART AT DEPAKOTE 125 T.I.D. ALPRAZOLAM DOSE HELD THIS AFTERNOON
== END 2021-02-17 15:48 | disposition home or self-care (01) | DRG 885 ==
LOC: HO.ED 09:36 → HO.PM5 12:48
PROVIDERS: Admitting Provider Psychiatry & Neurology Psychiatry; Emergency Provider Internal Medicine; PCP Internal Medicine Sports Medicine; Visit Provider Psychiatry & Neurology Psychiatry
DX: F33.2 Major depressive disorder, recurrent severe without psychotic features (principal); I25.10 Atherosclerotic heart disease of native coronary artery without angina pectoris; Z20.822 Contact with and (suspected) exposure to COVID-19; J44.9 Chronic obstructive pulmonary disease, unspecified; F40.01 Agoraphobia with panic disorder; E78.5 Hyperlipidemia, unspecified; Z88.0 Allergy status to penicillin; Z88.2 Allergy status to sulfonamides; Z88.5 Allergy status to narcotic agent; Z79.51 Long term (current) use of inhaled steroids; Z79.899 Other long term (current) drug therapy
CPT/HCPCS: 36415; 80053; 80061; 80164; 80307; 81001; 82306; 82607; 82746; 84443; 85025; 87635; 93005; 99285

== ENCOUNTER → 2021-02-23 14:48 | Outpatient (BNVA) | payer OTHER, SELFPAY | PROVIDERS: PCP Internal Medicine Sports Medicine; Visit Provider Hospitalist | DX: K21.9 Gastro-esophageal reflux disease without esophagitis (principal) ==

== ENCOUNTER 2021-02-27 07:43 | Inpatient (IN) | payer OTHER, SELFPAY ==
[2021-02-27 07:49] VITALS: PULSE 100; RESP 16; TEMP 36; O2SAT 99
--- NOTE | 2021-02-27 08:09 | ED_ITS ---
HPI - Psych General Chief Complaint: Psychiatric Symptoms Stated Complaint: CRISIS Time Seen by Provider: 02/27/21 08:09 Source: patient Mode of arrival: ambulatory Limitations: no limitations History of Present Illness HPI Narrative: Patient recently had his depakote and xanax removed but patient is not doing well. He is suffering from anxiety severly. Patient states he has not slept in 2 days. MD complaint: suicidal ideation, feels depressed and anxiety Onset (ago): day(s) Duration: intermittent History of same: Yes Relieving factors: none Exacerbating factors: none Associated psychiatric symptoms: depression and suicidal ideation Related Data Home Medications Medication Instructions Recorded Confirmed Spiriva Respimat 2 puff PO DAILY 07/08/20 01/20/21 amlodipine 1 tab PO DAILY 07/08/20 02/23/21 ascorbic acid (vitamin C) 1,000 mg 1,000 mg PO DAILY 07/21/20 02/23/21 tablet cholecalciferol (vitamin D3) 25 50 mcg PO DAILY cap 07/21/20 02/23/21 mcg (1,000 unit) capsule [id number] acid 0.4 1 tab PO DAILY 07/21/20 02/23/21 mg-lycopene 300 mcg-lutein 250 mcg tablet zinc acetate 25 mg (zinc) capsule 25 mg PO DAILY 07/21/20 02/23/21 Spiriva Respimat 2 puff INHALATION DAILY 02/10/21 02/23/21 famotidine 40 mg PO BEDTIME 02/10/21 02/23/21 fluticasone propion-salmeterol 1 inh INHALATION BID 02/10/21 02/23/21 [Advair Diskus] levalbuterol HCl [Xopenex] 1.25 mg INHALATION Q4-6H PRN 02/10/21 02/23/21 multivitamin-iron (hematinic) 1 tab PO DAILY 02/10/21 02/23/21 propranolol 10 mg PO TID 02/10/21 02/23/21 lorazepam 1 mg tablet 1 mg PO TID 02/23/21 02/23/21 dicyclomine 30 mg PO TID 02/27/21 olanzapine 1 tab PO BEDTIME 02/27/21 Previous Rx's Medication Instructions Recorded albuterol sulfate 90 mcg/actuation 2 inh INHALATION Q4-6H PRN #1 ea 07/27/20 breath activated powder inhaler levalbuterol tartrate 45 2 puff INHALATION Q4H PRN #15 g 07/27/20 mcg/actuation aerosol inhaler prednisone 10 mg tablet 10 mg PO DAILY 30 Days #30 tab 10/13/20 azithromycin 250 mg tablet 250 mg PO 3XW 28 Days #12 tab 12/26/20 alprazolam 0.5 mg PO TID 30 Days #120 tab 02/17/21 divalproex 250 mg PO BID 30 Days #150 cap 02/17/21 olanzapine [Zyprexa] 5 mg PO BEDTIME #90 tab 02/17/21 Allergies Allergy/AdvReac Type Severity Reaction Status Date / Time lamotrigine [From LAMICTAL] Allergy Severe agitation Verified 02/23/21 16:08 and anxiety with titration codeine [CODEINE] Allergy Intermediate INSOMNIA Verified 02/23/21 16:08 Penicillins [PENICILLINS] Allergy Intermediate RASH Verified 02/23/21 16:08 epinephrine [EPINEPHRINE] AdvReac Intermediate Hypertensio Verified 02/23/21 16:08 n escitalopram [From LEXAPRO] AdvReac Intermediate NIGHTMARES Verified 02/23/21 16:08 sertraline [From ZOLOFT] AdvReac Intermediate NIGHTMARES Verified 02/23/21 16:08 sulfamethoxazole AdvReac Intermediate STOMACH Verified 02/23/21 16:08 [From BACTRIM] UPSET Review of Systems Constitutional: Constitutional: Reports no additional constitutional complaints Eyes: Eyes: Reports no additional eye complaints ENT: Denies dizziness Cardiovascular: Cardiovascular: Reports no additional cardiovascular complaints Respiratory: Respiratory: Reports as per HPI Gastrointestinal: Gastrointestinal: Reports no additional gastrointestinal complaints Musculoskeletal: Musculoskeletal: Reports no additional musculoskeletal complaints Integumentary/Breasts: Skin/Breast: Denies rash Neurologic: Reports system reviewed and no additional complaints, except as documented, Denies dizziness and Denies Sensory deficit (Neuro) Psychiatric: Psychiatric: Denies anxiety PMFSH Past Medical History Medical History Abnormal nuclear stress test CAD (coronary artery disease) Chronic respiratory failure COPD (chronic obstructive pulmonary disease) Depression Generalized anxiety disorder HLD (hyperlipidemia) Major depressive disorder, recurrent episode, severe with anxious distress Pneumonitis Pre-op evaluation Preop cardiovascular exam Smoking Surgical History Stented coronary artery Family History Family History Father No problems noted. Mother No problems noted. Social History Social History Household Members: Spouse and Family Housing: House Do you presently have visiting nurse or other home services: No Alcohol intake: never Years Smoked: 40 Second Hand Smoke Exposure: No Advance Directives: No Advance Directives Information Provided: No service: No Sexual orientation: Lesbian/Triana/Homosexual Physical Exam Vital Signs: Vital Signs: Last Vital Signs Temp 96.8 F 02/27/21 07:49 Pulse 90 02/27/21 12:12 Resp 18 02/27/21 12:12 BP 114/76 02/27/21 12:12 Pulse Ox 99 02/27/21 12:12 Oxygen Flow Rate 2 02/27/21 07:49 Body Mass Index 0.2 Const: Other: patient with severe anxiety General: healthy appearing Nutritional Appearance: average body habitus Orientation/consciousness: oriented to person and patient oriented x3 Limitations: no limitations HENMT: Head: Yes normal to inspection Ears: external ears normal General nose exam: Normal external nose present Mouth: Normal oral and palatal mucosa present and oropharynx normal Throat: Yes posterior oropharynx normal Eyes: General: appearance normal, both eyes and all related structures Neck: Other: supple Neck: Yes normal visual inspection Chest: Chest palpation & inspection: normal inspection of the chest Resp: Auscultation: clear to auscultation bilaterally Cardio: Jugular venous distension: no JVD Rate: regular rate Rhythm: regular rhythm Heart sounds: S1 normal heart sound present and S2 normal heart sound present GI: Inspection: Yes normal to inspection Palpation (GI): Soft to palpation, nontender and No hepatosplenomegaly present Auscultation: normal bowel sounds : General: Yes no CVA tenderness Back/Spine/Pelvis: Back: no CVA tenderness Skin: General skin exam: no rashes or lesions noted Neuro: General: oriented to person and patient oriented x3 Cranial nerves: Yes CN's II-XII intact bilaterally Motor exam (neuro): 5/5 motor strength present throughout Sensory Exam: No Sensory deficit (Neuro) Extrem: General: Yes normal to inspection Psych: Appearance: grossly normal Course Course Course Narrative: Discussed with crisis will admit Reevaluation(s) Reevaluation #1: cleared for crisis Time: 12:12 MDM - Psych Lab Data Result diagrams: 02/27/21 09:02 02/27/21 09:02 Labs: Lab Results 02/27/21 02/27/21 02/27/21 Range/Units 09:02 09:02 09:02 WBC 10.5 (4.8-10.8) X10*3/uL RBC 5.65 (4.60-5.80) X10*6/uL Hgb 16.8 (14.0-18.0) g/dl Hct 50.6 (42-52) % MCV 89.6 (80-98) fL MCH 29.7 (27.0-33.0) pg MCHC 33.2 (31.0-36.0) g/dl RDW 12.5 (11.0-16.0) % Plt Count 271 (160-400) X10*3/uL MPV 8.7 L (9.4-12.4) fL Immature Gran % (Auto) 0.4 (0.0-0.4) % Neut % (Auto) 64.5 (45-73) % Lymph % (Auto) 23.3 (20-40) % [place] % (Auto) 10.4 (2-11) % Eos % (Auto) 1.0 (0-4) % Baso % (Auto) 0.4 (0-2) % Lymph # (Auto) 2.4 (1.2-4.9) X10*3/uL [place] # (Auto) 1.1 (0.1-1.2) X10*3/uL Eos # (Auto) 0.1 (0.0-0.4) X10*3/uL Baso # (Auto) 0.0 (0.0-0.2) X10*3/uL Abs Immat Gran (auto) 0.04 H (0.00-0.03) X10*3/uL Absolute Neuts (auto) 6.8 (2.0-8.3) X10*3/uL Absolute Nucleated RBC 0.000 (0.0-0.012) X10*3/uL Nucleated RBC % (auto) 0.0 (0.0-0.2) /100WBC Sodium 140 (135-145) mmol/L Potassium 3.7 (3.3-5.1) mmol/L Chloride 102 (96-108) mmol/L Carbon Dioxide 28 (22-29) mmol/L Anion Gap 14 (12-20) BUN 16 (9-16) mg/dL Creatinine 0.99 (0.5-1.4) mg/dL Estim Creat Clear Calc 81.3 Estimated GFR > 60 Random Glucose 85 (60-115) mg/dL Calcium 10.1 (8.4-10.2) mg/dL Total Bilirubin 0.9 (0.0-1.0) mg/dL AST 21 D (5-37) U/L ALT 25 (0-40) U/L Alkaline Phosphatase 51 (39-117) U/L Total Protein 7.8 (6.5-8.0) g/dL Albumin 4.9 (3.5-5.0) g/dL Urine Opiates Screen Not Detected (Not Detect) Ur Barbiturates Screen Not Detected (Not Detect) Ur Phencyclidine Scrn Not Detected (Not Detect) Ur Amphetamines Screen Not Detected (Not Detect) U Benzodiazepines Scrn POSITIVE H (Not Detect) Urine Cocaine Screen Not Detected (Not Detect) U Marijuana (THC) Screen Not Detected (Not Detect) Ethyl Alcohol mg/dL 02/27/21 Range/Units 09:02 WBC (4.8-10.8) X10*3/uL RBC (4.60-5.80) X10*6/uL Hgb (14.0-18.0) g/dl Hct (42-52) % MCV (80-98) fL MCH (27.0-33.0) pg MCHC (31.0-36.0) g/dl RDW (11.0-16.0) % Plt Count (160-400) X10*3/uL MPV (9.4-12.4) fL Immature Gran % (Auto) (0.0-0.4) % Neut % (Auto) (45-73) % Lymph % (Auto) (20-40) % [place] % (Auto) (2-11) % Eos % (Auto) (0-4) % Baso % (Auto) (0-2) % Lymph # (Auto) (1.2-4.9) X10*3/uL [place] # (Auto) (0.1-1.2) X10*3/uL Eos # (Auto) (0.0-0.4) X10*3/uL Baso # (Auto) (0.0-0.2) X10*3/uL Abs Immat Gran (auto) (0.00-0.03) X10*3/uL Absolute Neuts (auto) (2.0-8.3) X10*3/uL Absolute Nucleated RBC (0.0-0.012) X10*3/uL Nucleated RBC % (auto) (0.0-0.2) /100WBC Sodium (135-145) mmol/L Potassium (3.3-5.1) mmol/L Chloride (96-108) mmol/L Carbon Dioxide (22-29) mmol/L Anion Gap (12-20) BUN (9-16) mg/dL Creatinine (0.5-1.4) mg/dL Estim Creat Clear Calc Estimated GFR Random Glucose (60-115) mg/dL Calcium (8.4-10.2) mg/dL Total Bilirubin (0.0-1.0) mg/dL AST (5-37) U/L ALT (0-40) U/L Alkaline Phosphatase (39-117) U/L Total Protein (6.5-8.0) g/dL Albumin (3.5-5.0) g/dL Urine Opiates Screen (Not Detect) Ur Barbiturates Screen (Not Detect) Ur Phencyclidine Scrn (Not Detect) Ur Amphetamines Screen (Not Detect) U Benzodiazepines Scrn (Not Detect) Urine Cocaine Screen (Not Detect) U Marijuana (THC) Screen (Not Detect) Ethyl Alcohol < 10 mg/dL Discharge Plan Discharge Prescriptions: No Action ProAir RespiClick 90 mcg/actuation aerosol powdr breath activated 2 inh inhalation Q4-6H PRN (Reason: Shortness Of Breath) Qty: 1 RF: 3 levalbuterol tartrate 45 mcg/actuation HFA aerosol inhaler 2 puff inhalation Q4H PRN (Reason: shortness of breath or wheezing) Qty: 15 RF: 11 amlodipine 10 mg tablet 1 tab PO DAILY RF: 0 Spiriva Respimat 2.5 mcg/actuation mist 2 puff PO DAILY RF: 0 fluticasone propion-salmeterol [Advair Diskus] 500-50 mcg/dose Blister With Device 1 inh INHALATION BID RF: 0 levalbuterol HCl [Xopenex] 1.25 mg/3 mL Solution For Nebulization 1.25 mg INHALATION Q4-6H PRN (Reason: Shortness Of Breath Or Wheezing) RF: 0 multivitamin-iron (hematinic) Tablet 1 tab PO DAILY RF: 0 Spiriva Respimat 1.25 mcg/actuation Mist 2 puff INHALATION DAILY RF: 0 propranolol 10 mg Tablet 10 mg PO TID RF: 0 famotidine 40 mg Tablet 40 mg PO BEDTIME RF: 0 alprazolam 0.5 mg Tablet 0.5 mg PO TID 30 Days Qty: 120 RF: 0 divalproex 125 mg Capsule, Delayed Rel Sprinkle 250 mg PO BID 30 Days Qty: 150 RF: 0 olanzapine [Zyprexa] 5 mg tablet 5 mg PO BEDTIME Qty: 90 RF: 0 olanzapine 2.5 mg tablet 1 tab PO BEDTIME RF: 0 dicyclomine 10 mg capsule 30 mg PO TID RF: 0 azithromycin 250 mg tablet 250 mg PO 3XW 28 Days Qty: 12 RF: 6 ascorbic acid (vitamin C) 1,000 mg tablet 1,000 mg PO DAILY RF: 0 Spectravite Adult 50 Plus 0.4-300-250 mg-mcg-mcg tablet 1 tab PO DAILY RF: 0 zinc acetate 25 mg (zinc) capsule 25 mg PO DAILY RF: 0 cholecalciferol (vitamin D3) 25 mcg (1,000 unit) capsule 50 mcg PO DAILY RF: 0 prednisone 10 mg tablet 10 mg PO DAILY 30 Days Qty: 30 RF: 4 lorazepam 1 mg tablet 1 mg PO TID RF: 0
[2021-02-27] MEDS: LORazepam 1 MG TABLET PO ×2 (08:34→12:11)
[2021-02-27 09:10] LABS: MANUAL DIFF FLAG NO
[2021-02-27 09:22] LABS: Basophils Percent Auto 0.4 % (0-2); Eosinophils Absolute Auto 0.1 X10*3/uL (0.0-0.4); Hematocrit 50.6 % (42-52); Hemoglobin 16.8 g/dl (14.0-18.0); Imm Gran Abs Auto 0.04 X10*3/uL (0.00-0.03); Imm Gran Pct Auto 0.4 % (0.0-0.4); Lymphocytes Absolute Auto 2.4 X10*3/uL (1.2-4.9); Lymphocytes Percent Auto 23.3 % (20-40); Mean Corpuscular HGB Conc 33.2 g/dl (31.0-36.0); Mean Corpuscular Hemoglobin 29.7 pg (27.0-33.0); Mean Corpuscular Volume 89.6 fL (80-98); Mean Platelet Volume 8.7 fL (9.4-12.4); Monocytes Absolute Auto 1.1 X10*3/uL (0.1-1.2); Monocytes Percent Auto 10.4 % (2-11); Neutrophils Absolute Auto 6.8 X10*3/uL (2.0-8.3); Neutrophils Percent Auto 64.5 % (45-73); Platelet Count 271 X10*3/uL (160-400); Red Blood Count 5.65 X10*6/uL (4.60-5.80); Red Cell Distribution Width 12.5 % (11.0-16.0); White Blood Count 10.5 X10*3/uL (4.8-10.8)
[2021-02-27 09:38] LABS: Amphetamine Screen Urine Not Detected (Not Detect); Barbiturates, Urine Not Detected (Not Detect); Benzodiazepines Screen Urine POSITIVE (Not Detect); Cannabinoid Screen Urine Not Detected (Not Detect); Cocaine Screen Urine Not Detected (Not Detect); Opiate Screen Urine Not Detected (Not Detect); Phencyclidine Screen Urine Not Detected (Not Detect)
[2021-02-27 09:42] LABS: Ethanol < 10 mg/dL
[2021-02-27 09:46] LABS: Alanine Aminotransferase 25 U/L (0-40); Albumin Level 4.9 g/dL (3.5-5.0); Alkaline Phosphatase 51 U/L (39-117); Anion Gap 14 (12-20); Aspartate Amino Transferase 21 U/L (5-37); Bilirubin Total 0.9 mg/dL (0.0-1.0); Blood Urea Nitrogen 16 mg/dL (9-16); Calcium 10.1 mg/dL (8.4-10.2); Carbon Dioxide 28 mmol/L (22-29); Chloride 102 mmol/L (96-108); Creatinine Clr Calc Pharmacy 81.3; Estimated Glomerular Filt Rate > 60; Glucose Random 85 mg/dL (60-115); Potassium 3.7 mmol/L (3.3-5.1); Sodium 140 mmol/L (135-145); Total Protein 7.8 g/dL (6.5-8.0)
--- NOTE | 2021-02-27 11:05 | MHC.CARE ---
Patient assessed by the CARE Team to require inpatient psychiatric treatment and will remain in the ED until placement secured. Written evaluation to follow. Providers updated
[2021-02-27 12:12] VITALS: BP 114/76; PULSE 90; RESP 18; O2SAT 99
--- NOTE | 2021-02-27 16:25 | ECG_ITS ---
Test Reason : ADMIT M5 Blood Pressure : / mmHG Vent. Rate : 097 BPM Atrial Rate : 097 BPM P-R Int : 132 ms QRS Dur : 086 ms QT Int : 348 ms P-R-T Axes : 081 060 071 degrees QTc Int : 441 ms Normal sinus rhythm Nonspecific ST and T wave abnormality When compared with ECG of 10-FEB-2021 15:20, Nonspecific T wave abnormality now evident in Inferior leads Referred By: Hao Nicholson Electronically Signed By:ZION VILLEDA MD
--- NOTE | 2021-02-27 16:30 | PHA.MEDREC ---
Pharmacy Consult ? Medication Reconciliation Pharmacy has completed the medication reconciliation. Per patient, he is no longer taking Depakote or Alprazolam, and has discontinued olanzapine due to ADRs. Also, his RX for dicyclomine is 30mg TID, but he is only taking 10mg tid. Thanks
[2021-02-27 17:28] LABS: COVID-19 Test Negative (Negative); IDNOW Serial# 08D9AD1C
[2021-02-27 17:45] VITALS: RESP 18
--- NOTE | 2021-02-27 20:04 | PC.NURSE ---
Called [facility], spoke with community mental health worker,
[2021-02-27] MEDS: Gabapentin 100 MG CAPSULE PO (21:22)
[2021-02-27] MEDS: Albuterol Sulfate 90 MCG 8 GM INHALER 2 PUFF INHALE (21:26)
[2021-02-27] MEDS: Famotidine 20 MG TABLET 40 MG PO (21:51)
[2021-02-27] MEDS: Dicyclomine HCl 10 MG CAPSULE PO (21:52)
[2021-02-27 21:53] VITALS: BP 128/73; PULSE 115
[2021-02-27] MEDS: Azithromycin 250 MG TABLET PO (21:53)
[2021-02-27] MEDS: Propranolol HCL 10 MG TABLET PO (21:53)
[2021-02-27] MEDS: Acetaminophen 325 MG TABLET 650 MG PO (22:02)
[2021-02-28 06:05] VITALS: BP 137/66; PULSE 102; PULSE 107; RESP 16; TEMP 35.5; O2SAT 95; O2SAT 96
[2021-02-28] MEDS: Fluticasone/Vilanterol 200/25 BLST.W.DEV 1 PUFF INHALE (08:50)
[2021-02-28] MEDS: Cholecalciferol (Vitamin D3) 25 MCG TABLET 50 MCG PO (08:50)
[2021-02-28] MEDS: Albuterol Sulfate 90 MCG 8 GM INHALER 2 PUFF INHALE ×2 (08:50→22:32)
[2021-02-28] MEDS: Ascorbic Acid 500 MG TABLET 1000 MG PO (08:51)
[2021-02-28] MEDS: Dicyclomine HCl 10 MG CAPSULE PO (08:51)
[2021-02-28] MEDS: Multivitamin TABLET 1 TAB PO (08:51)
[2021-02-28] MEDS: predniSONE 10 MG TABLET PO (08:51)
[2021-02-28] MEDS: Propranolol HCL 10 MG TABLET PO ×3 (10:04→21:00)
[2021-02-28] MEDS: Dicyclomine HCl 10 MG CAPSULE 30 MG PO ×3 (13:09→20:57)
--- NOTE | 2021-02-28 13:18 | HO.PSYADMNOT ---
HPI Chief Complaint: Confusion anxiety HPI Subjective Notes: Conditional Voluntary Guardianship: No Medical Problems Affecting Mental Status: Yes Narrative: Please see recent discharge summary for full information. The patient was recently on the psychiatric unit under similar circumstances. He came to the emergency room secondary to worsening anxiety and confusion. He had been discharged on Depakote 250 mg twice a day alprazolam 0.5 mg t.i.d. and had a full affect and no confusion at the time of discharge. At home the patient became ruminating anxious complained of balance difficulties over sedation and alprazolam was lower to 0.25 t.i.d. although he had been on up to Ativan 1 b.i.d. to t.i.d. previously and there have been past trials of Depakote which reportedly were highly effective. The patient frequently complains of side effects from medication and tends to go off multiple trials. Patient took himself off alprazolam Depakote and Zyprexa and has become increasingly confused. There is no history of seizure no history of substance abuse history of recurrent anxiety depression consideration was given to starting M Dwayne however unclear if the patient's medication for for COPD would interact well within MAO I. Consideration was also given to ECT however patient does have a history of stenting. There were reportedly some perfusion deficits on a myocardial perfusion scan in the past Past Psychiatric History: History of good response to ECT past history of panic disorder has not been able to stabilize now for number of years despite outpatient therapy counseling partial hospital ongoing treatment with a nurse practitioner Trina iverson Medical Evaluation Reviewed: Yes [facility] Medical History Abnormal nuclear stress test CAD (coronary artery disease) Chronic respiratory failure COPD (chronic obstructive pulmonary disease) Depression Generalized anxiety disorder HLD (hyperlipidemia) Major depressive disorder, recurrent episode, severe with anxious distress Pneumonitis Pre-op evaluation Preop cardiovascular exam Smoking Surgical History Stented coronary artery Social History: 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 He has a supportive family including sister and mother Trauma History: no history of sexual or physical trauma Diagnostics Vital Signs (24Hr): Vital Signs - 24 hr 02/27/21 17:45 02/27/21 21:53 02/28/21 06:05 Temperature 96 F L Pulse Rate 115 H 102 H Respiratory Rate 18 16 Blood Pressure 128/73 137/66 Pulse Oximetry 96 Body Mass Index 0.2 Labs Results: 02/27/21 09:02 02/27/21 09:02 Labs: Laboratory Results - last 48 hr 02/27/21 02/27/21 02/27/21 09:02 09:02 09:02 WBC 10.5 RBC 5.65 Hgb 16.8 Hct 50.6 MCV 89.6 MCH 29.7 MCHC 33.2 RDW 12.5 Plt Count 271 MPV 8.7 L Immature Gran % (Auto) 0.4 Neut % (Auto) 64.5 Lymph % (Auto) 23.3 [place] % (Auto) 10.4 Eos % (Auto) 1.0 Baso % (Auto) 0.4 Lymph # (Auto) 2.4 [place] # (Auto) 1.1 Eos # (Auto) 0.1 Baso # (Auto) 0.0 Abs Immat Gran (auto) 0.04 H Absolute Neuts (auto) 6.8 Absolute Nucleated RBC 0.000 Nucleated RBC % (auto) 0.0 Sodium 140 Potassium 3.7 Chloride 102 Carbon Dioxide 28 Anion Gap 14 BUN 16 Creatinine 0.99 Estim Creat Clear Calc 81.3 Estimated GFR > 60 Random Glucose 85 Calcium 10.1 Total Bilirubin 0.9 AST 21 D ALT 25 Alkaline Phosphatase 51 Total Protein 7.8 Albumin 4.9 Urine Opiates Screen Not Detected Ur Barbiturates Screen Not Detected Ur Phencyclidine Scrn Not Detected Ur Amphetamines Screen Not Detected U Benzodiazepines Scrn POSITIVE H Urine Cocaine Screen Not Detected U Marijuana (THC) Screen Not Detected Ethyl Alcohol COVID-19 ([facility]) COVID-19 Clin Com 02/27/21 02/27/21 09:02 16:46 WBC RBC Hgb Hct MCV MCH MCHC RDW Plt Count MPV Immature Gran % (Auto) Neut % (Auto) Lymph % (Auto) [place] % (Auto) Eos % (Auto) Baso % (Auto) Lymph # (Auto) [place] # (Auto) Eos # (Auto) Baso # (Auto) Abs Immat Gran (auto) Absolute Neuts (auto) Absolute Nucleated RBC Nucleated RBC % (auto) Sodium Potassium Chloride Carbon Dioxide Anion Gap BUN Creatinine Estim Creat Clear Calc Estimated GFR Random Glucose Calcium Total Bilirubin AST ALT Alkaline Phosphatase Total Protein Albumin Urine Opiates Screen Ur Barbiturates Screen Ur Phencyclidine Scrn Ur Amphetamines Screen U Benzodiazepines Scrn Urine Cocaine Screen U Marijuana (THC) Screen Ethyl Alcohol < 10 COVID-19 ([facility]) Negative COVID-19 Clin Com See Note Meds/Allergies Meds Home Medications Acetaminophen (Acetaminophen 325 Mg Tablet) 650 mg PO Q6H PRN PRN Reason: Headache/Pain Mild Scale (1-3) Last Admin: 02/27/21 22:02 Dose: 650 mg Documented by: Al Hydroxide/Mg Hydroxide (Magnesium Hydrox/Alum Hydrox 30 Ml Oral.Susp) 30 ml PO Q6H PRN PRN Reason: Heartburn/Nausea Albuterol Sulfate (Albuterol Sulfate 90 Mcg 8 Gm Inhaler) 2 puff INHALE Q4H PRN PRN Reason: Shortness Of Breath Last Admin: 02/28/21 08:50 Dose: 2 puff Documented by: Amlodipine Besylate (Amlodipine Besylate 10 Mg Tablet) 10 mg PO DAILY [facility]; Protocol Last Admin: 02/28/21 10:05 Dose: Not Given Documented by: Ascorbic Acid (Ascorbic Acid 500 Mg Tablet) 1,000 mg PO DAILY [facility] [place] Last Admin: 02/28/21 08:51 Dose: 1,000 mg Documented by: Azithromycin (Azithromycin 250 Mg Tablet) 250 mg PO MOWEFR [facility] [place] Last Admin: 02/27/21 21:53 Dose: 250 mg Documented by: Dicyclomine HCl (Dicyclomine Hcl 10 Mg Capsule) 30 mg PO TID [facility] [place] Last Admin: 02/28/21 17:07 Dose: 30 mg Documented by: Divalproex Sodium (Divalproex Sodium Sprinkles 125 Mg Spr) 125 mg PO TID [facility] [place] Last Admin: 02/28/21 14:25 Dose: 125 mg Documented by: Famotidine (Famotidine 20 Mg Tablet) 40 mg PO BEDTIME [facility] [place] Last Admin: 02/27/21 21:51 Dose: 40 mg Documented by: Fluticasone/Vilanterol (Fluticasone/Vilanterol 200/25 Blst.W.Dev) 1 puff INHALE RDAILY [facility] [place] Last Admin: 02/28/21 08:50 Dose: 1 puff Documented by: Levalbuterol HCl (Levalbuterol Hcl 1.25 Mg/0.5 Ml Vial.Neb) 1.25 mg INHALE Q4H PRN PRN Reason: Shortness Of Breath Or Wheezing Last Admin: 02/28/21 06:05 Dose: 1.25 mg Documented by: Lorazepam (Lorazepam 0.5 Mg Tablet) 0.5 mg PO Q6H PRN PRN Reason: Anxiety Last Admin: 02/28/21 18:31 Dose: 0.5 mg Documented by: Lorazepam (Lorazepam 0.5 Mg Tablet) 0.5 mg PO TID [facility] [place] Last Admin: 02/28/21 14:25 Dose: 0.5 mg Documented by: Magnesium Hydroxide (Milk Of Magnesia 30 Ml Oral.Susp) 30 ml PO DAILY PRN PRN Reason: Constipation Multivitamins/Vitamin C (Multivitamin Tablet) 1 tab PO DAILY [facility] [place] Last Admin: 02/28/21 08:51 Dose: 1 tab Documented by: Nicotine Polacrilex (Nicotine Polacrilex 2 Mg Gum) 4 mg BUCCAL Q2H PRN PRN Reason: Nicotine Cravings Non-Formulary Medication (Levalbuterol Tartrate) 2 puff INHALE Q4H PRN PRN Reason: shortness of breath or wheezing Olanzapine (Olanzapine 2.5 Mg Tablet) 2.5 mg PO BEDTIME [facility] Prednisone (Prednisone 10 Mg Tablet) 10 mg PO DAILY [facility] Stop: 03/01/21 23:59 Last Admin: 02/28/21 08:51 Dose: 10 mg Documented by: Propranolol HCl (Propranolol Hcl 10 Mg Tablet) 10 mg PO TID [facility] [place]; Protocol Last Admin: 02/28/21 14:27 Dose: 10 mg Documented by: Tiotropium [place] (Tiotropium [place] 18 Mcg Cap.W.Dev) 2 puff INHALE RDAILY [facility] [place] Last Admin: 02/28/21 09:19 Dose: 2 puff Documented by: Vitamin D (Cholecalciferol (Vitamin D3) 25 Mcg Tablet) 50 mcg PO DAILY [facility] [place] Last Admin: 02/28/21 08:50 Dose: 50 mcg Documented by: Allergies Allergies Allergy/AdvReac Type Severity Reaction Status Date / Time lamotrigine [From LAMICTAL] Allergy Severe agitation Verified 02/23/21 16:08 and anxiety with titration codeine [CODEINE] Allergy Intermediate INSOMNIA Verified 02/23/21 16:08 Penicillins [PENICILLINS] Allergy Intermediate RASH Verified 02/23/21 16:08 epinephrine [EPINEPHRINE] AdvReac Intermediate Hypertensio Verified 02/23/21 16:08 n escitalopram [From LEXAPRO] AdvReac Intermediate NIGHTMARES Verified 02/23/21 16:08 sertraline [From ZOLOFT] AdvReac Intermediate NIGHTMARES Verified 02/23/21 16:08 sulfamethoxazole AdvReac Intermediate STOMACH Verified 02/23/21 16:08 [From BACTRIM] UPSET Mental Status Exam Mental Status Exam Patient Appearance: Disheveled Patient Orientation: Person, Place and Situation Level of Consciousness: Awake and Restless Patient Behavior: Suspicious and Anxious Mood Description: Labile, Sad, Nervous and Apprehensive Affect Description: Suspicious, Depressed, Fearful, Anxious and Apprehensive Patient Cognition Impaired: Yes Ability to Follow Directions: Fair Speech Pattern: Perseverating Memory Description: Recent Impaired and Working Impaired Hallucinations: None Delusions: Not Present Thought Process: Distracted, Rumination and Confusion Thought Content: positive for Preoccupation, positive for Suicidal Ideation (Hopeless helpless thoughts that he might be better off denies plan or intent) and negative for Homicidal Ideation Depressive Symptoms: Increased Anxiety, Increased Irritability and Difficulty Sleeping Abnormal Motor Activity Signs and Symptoms: Restlessness Judgement: Fair Assessment & Plan Assessment & Plan (1) Generalized anxiety disorder: Status: Acute Code(s): F41.1 - Generalized anxiety disorder (2) 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: Status: Acute Code(s): F40.01 - Agoraphobia with panic disorder (3) Major depressive disorder, recurrent episode, severe with anxious distress: Status: Acute Code(s): F33.2 - Major depressive disorder, recurrent severe without psychotic features (4) COPD (chronic obstructive pulmonary disease): Status: Acute Qualifiers: COPD type: emphysema Emphysema type: centrilobular Qualified Code(s): J43.2 - Centrilobular emphysema Code(s): J44.9 - Chronic obstructive pulmonary disease, unspecified (5) Confusion with nonfocal neurological examination: Status: Acute Code(s): R41.0 - Disorientation, unspecified Assessment and Plan: Patient readmitted in and anxious confused state most likely secondary to acute withdrawal from Depakote and benzodiazepines. Patient has had difficulty with multiple medications somatic preoccupation side effects has not been able be stabilized x2 years. Had been with a clear sensorium not depressed full affect prior to discharge approximately 7-10 days ago. Restart Ativan patient fearful of low-dose alprazolam even know he had been stable at time of discharge on alprazolam and is a shunt shorter acting benzodiazepine recommended in the geriatric setting. Restart lorazepam 0.5 t.i.d. with p.r.n. says needed Depakote 125 t.i.d. and olanzapine 2.5 mg at bedtime. Unclear if patient has been tried on Rexulti or Vraylar. Re-evaluate need for treatment for depression with mixed anxiety with consideration of M Dwayne or ECT but 1st will need to stabilize cognition. Patient's labs unremarkable CBC chemistries reviewed emergency room evaluation reviewed Patient educated on: diagnosis, medication risk/benefits and medical condition Informed Consent: further education needed Reason for continued inpatient stay Substantial Risk for: inability to function, rapid decompensation and med/psych decompensation
[2021-02-28] MEDS: Divalproex Sodium Sprinkles 125 MG CAP.DR.SPR PO ×2 (14:25→21:01)
[2021-02-28] MEDS: LORazepam 0.5 MG TABLET PO ×3 (14:25→21:05)
[2021-02-28 14:27] VITALS: BP 131/74; PULSE 111
[2021-02-28 18:07] VITALS: BP 139/71; PULSE 107; RESP 20; TEMP 35.9; O2SAT 94
[2021-02-28 21:00] VITALS: BP 115/90; PULSE 90
[2021-02-28] MEDS: Famotidine 20 MG TABLET 40 MG PO (21:04)
--- NOTE | 2021-02-28 21:18 | PC.NURSE ---
PT refused olanzapine, stating that he experiences adverse side effects such as dry mouth, disturbed vision, and uncontrolled jaw movement.
[2021-03-01] VITALS (11 sets, daily range): BP systolic 104–138; BP diastolic 60–86; PULSE 82–98; RESP 16–20; TEMP 36.2–36.6; O2SAT 94–96
[2021-03-01] MEDS: LORazepam 0.5 MG TABLET PO ×5 (06:26→20:54)
[2021-03-01] MEDS: Albuterol Sulfate 90 MCG 8 GM INHALER 2 PUFF INHALE ×3 (06:26→18:24)
[2021-03-01] MEDS: Cholecalciferol (Vitamin D3) 25 MCG TABLET 50 MCG PO (08:40)
[2021-03-01] MEDS: Ascorbic Acid 500 MG TABLET 1000 MG PO (08:41)
[2021-03-01] MEDS: Multivitamin TABLET 1 TAB PO (08:41)
[2021-03-01] MEDS: Divalproex Sodium Sprinkles 125 MG CAP.DR.SPR PO ×3 (08:42→20:54)
[2021-03-01] MEDS: amLODIPine Besylate 10 MG TABLET PO (09:39)
[2021-03-01] MEDS: Dicyclomine HCl 10 MG CAPSULE 30 MG PO ×3 (09:40→20:54)
[2021-03-01] MEDS: predniSONE 10 MG TABLET PO (09:40)
[2021-03-01] MEDS: Propranolol HCL 10 MG TABLET PO ×3 (09:40→20:54)
--- NOTE | 2021-03-01 13:03 | P.PNPSI_ITS ---
Subjective Subjective Date of Service: 03/01/21 Reason For Visit: Confusion anxiety Subjective Notes: Conditional Voluntary Guardianship: No Medical Problems Affecting Mental Status: Yes Interim History: pt depressed anxious clearer sensorium helpless hopeless Medication Compliance: Intermittent Attending Groups: Intermittent Mental Status Exam Mental Status Exam Patient Appearance: Disheveled Patient Orientation: Person, Place and Situation Level of Consciousness: Awake and Restless Patient Behavior: Suspicious and Anxious Mood Description: Sad, Nervous and Apprehensive Affect Description: Depressed, Fearful, Anxious and Apprehensive Patient Cognition Impaired: Yes Ability to Follow Directions: Fair Speech Pattern: Perseverating Memory Description: Recent Impaired and Working Impaired Hallucinations: None Delusions: Not Present Thought Process: Distracted, Rumination and Confusion Thought Content: positive for Preoccupation, positive for Suicidal Ideation (Hopeless helpless thoughts that he might be better off denies plan or intent) and negative for Homicidal Ideation Depressive Symptoms: Increased Anxiety, Increased Irritability and Difficulty Sleeping Abnormal Motor Activity Signs and Symptoms: Restlessness Judgement: Fair Diagnostics Vital Signs (24Hr): Vital Signs - 24 hr 02/28/21 14:27 02/28/21 18:07 02/28/21 21:00 Temperature 96.6 F L Pulse Rate 111 H 107 H 90 Respiratory Rate 20 Blood Pressure 131/74 139/71 115/90 H Pulse Oximetry 94 03/01/21 06:00 03/01/21 09:39 03/01/21 09:40 Temperature 97.8 F Pulse Rate 98 92 92 Respiratory Rate 16 Blood Pressure 104/60 128/86 128/86 Pulse Oximetry 94 03/01/21 11:52 03/01/21 11:53 Temperature 97.1 F 97.1 F Pulse Rate 92 92 Respiratory Rate 20 20 Blood Pressure 128/86 128/86 Pulse Oximetry Body Mass Index 0.2 Labs Results: 02/27/21 09:02 02/27/21 09:02 Labs: Laboratory Results - last 48 hr 02/27/21 16:46 COVID-19 ([facility]) Negative COVID-19 Clin Com See Note Medications Medications Current Medications Generic Name Dose Route Start Last Admin Trade Name Freq PRN Reason Stop Dose Admin Acetaminophen 650 mg 02/27/21 19:42 02/27/21 22:02 Acetaminophen 325 Mg Tablet PO 650 mg Q6H PRN Administration Headache/Pain Mild Scale (1-3) Al Hydroxide/Mg Hydroxide 30 ml 02/27/21 19:42 Magnesium Hydrox/Alum Hydrox 30 Ml Oral.Susp PO Q6H PRN Heartburn/Nausea Albuterol Sulfate 2 puff 02/27/21 19:42 03/01/21 12:14 Albuterol Sulfate 90 Mcg 8 Gm Inhaler INHALE 2 puff Q4H PRN Administration Shortness Of Breath Amlodipine Besylate 10 mg 02/28/21 09:00 03/01/21 09:39 Amlodipine Besylate 10 Mg Tablet PO 10 mg DAILY ÁLVARO Administration Protocol Ascorbic Acid 1,000 mg 02/28/21 09:00 03/01/21 08:41 Ascorbic Acid 500 Mg Tablet PO 1,000 mg DAILY ÁLVARO Administration Azithromycin 250 mg 02/27/21 19:42 02/27/21 21:53 Azithromycin 250 Mg Tablet PO 250 mg MOWEFR ÁLVARO Administration Dicyclomine HCl 30 mg 02/28/21 13:00 03/01/21 09:40 Dicyclomine Hcl 10 Mg Capsule PO 30 mg TID ÁLVARO Administration Divalproex Sodium 125 mg 02/28/21 15:00 03/01/21 08:42 Divalproex Sodium Sprinkles 125 Mg Cap.Spr PO 125 mg TID ÁLVARO Administration Famotidine 40 mg 02/27/21 21:00 02/28/21 21:04 Famotidine 20 Mg Tablet PO 40 mg BEDTIME ÁLVARO Administration Fluticasone/Vilanterol 1 puff 02/28/21 08:00 02/28/21 08:50 Fluticasone/Vilanterol 200/25 Blst.W.Dev INHALE 1 puff RDAILY ÁLVARO Administration Levalbuterol HCl 1.25 mg 02/27/21 19:58 02/28/21 06:05 Levalbuterol Hcl 1.25 Mg/0.5 Ml Vial.Neb INHALE 1.25 mg Q4H PRN Administration Shortness Of Breath Or Wheezing Lorazepam 0.5 mg 02/28/21 13:37 03/01/21 12:19 Lorazepam 0.5 Mg Tablet PO 0.5 mg Q6H PRN Administration Anxiety Lorazepam 0.5 mg 02/28/21 15:00 03/01/21 09:40 Lorazepam 0.5 Mg Tablet PO 0.5 mg TID ÁLVARO Administration Magnesium Hydroxide 30 ml 02/27/21 19:42 Milk Of Magnesia 30 Ml Oral.Susp PO DAILY PRN Constipation Multivitamins/Vitamin C 1 tab 02/28/21 09:00 03/01/21 08:41 Multivitamin Tablet PO 1 tab DAILY ÁLVARO Administration Nicotine Polacrilex 4 mg 02/27/21 19:42 Nicotine Polacrilex 2 Mg Gum BUCCAL Q2H PRN Nicotine Cravings Non-Formulary Medication 2 puff 02/27/21 19:42 Levalbuterol Tartrate INHALE Q4H PRN shortness of breath or wheezing Olanzapine 2.5 mg 02/28/21 21:00 02/28/21 21:05 Olanzapine 2.5 Mg Tablet PO Not Given BEDTIME ÁLVARO Prednisone 10 mg 02/28/21 09:00 03/01/21 09:40 Prednisone 10 Mg Tablet PO 03/01/21 23:59 10 mg DAILY ÁLVARO Administration Propranolol HCl 10 mg 02/27/21 21:00 03/01/21 09:40 Propranolol Hcl 10 Mg Tablet PO 10 mg TID ÁLVARO Administration Protocol Tiotropium [place] 2 puff 02/28/21 08:00 02/28/21 09:19 Tiotropium [place] 18 Mcg Cap.W.Dev INHALE 2 puff RDAILY ÁLVARO Administration Vitamin D 50 mcg 02/28/21 09:00 03/01/21 08:40 Cholecalciferol (Vitamin D3) 25 Mcg Tablet PO 50 mcg DAILY ÁLVARO Administration Allergies Allergies Allergy/AdvReac Type Severity Reaction Status Date / Time lamotrigine [From LAMICTAL] Allergy Severe agitation Verified 02/23/21 16:08 and anxiety with titration codeine [CODEINE] Allergy Intermediate INSOMNIA Verified 02/23/21 16:08 Penicillins [PENICILLINS] Allergy Intermediate RASH Verified 02/23/21 16:08 epinephrine [EPINEPHRINE] AdvReac Intermediate Hypertensio Verified 02/23/21 16:08 n escitalopram [From LEXAPRO] AdvReac Intermediate NIGHTMARES Verified 02/23/21 16:08 sertraline [From ZOLOFT] AdvReac Intermediate NIGHTMARES Verified 02/23/21 16:08 sulfamethoxazole AdvReac Intermediate STOMACH Verified 02/23/21 16:08 [From BACTRIM] UPSET Assessment & Plan Assessment & Plan (1) Generalized anxiety disorder: Status: Acute Code(s): F41.1 - Generalized anxiety disorder (2) 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: Status: Acute Code(s): F40.01 - Agoraphobia with panic disorder (3) Major depressive disorder, recurrent episode, severe with anxious distress: Status: Acute Code(s): F33.2 - Major depressive disorder, recurrent severe without psychotic features (4) COPD (chronic obstructive pulmonary disease): Qualifiers: COPD type: emphysema Emphysema type: centrilobular Qualified Code(s): J43.2 - Centrilobular emphysema Status: Acute Code(s): J44.9 - Chronic obstructive pulmonary disease, unspecified (5) Confusion with nonfocal neurological examination: Status: Acute Code(s): R41.0 - Disorientation, unspecified Assessment and Plan: Pt better with depakote ativan consider tca ect if needed cardiology comsult re ashd Greater than 50% of the session was spent on counseling and/or coordination of care Reason for contiued inpatient stay Substantial Risk for: inability to function, rapid decompensation and med/psych decompensation
[2021-03-01] MEDS: Azithromycin 250 MG TABLET PO (19:46)
[2021-03-01] MEDS: Famotidine 20 MG TABLET 40 MG PO (20:53)
[2021-03-01] MEDS: Magnesium Hydrox/Alum Hydrox 30 ML ORAL.SUSP PO (21:16)
[2021-03-02] MEDS: Albuterol Sulfate 90 MCG 8 GM INHALER 2 PUFF INHALE (07:50)
[2021-03-02] MEDS: Fluticasone/Vilanterol 200/25 BLST.W.DEV 1 PUFF INHALE (07:52)
[2021-03-02] MEDS: Multivitamin TABLET 1 TAB PO (08:52)
[2021-03-02] MEDS: Divalproex Sodium Sprinkles 125 MG CAP.DR.SPR PO ×3 (08:52→20:28)
[2021-03-02] MEDS: Ascorbic Acid 500 MG TABLET 1000 MG PO (08:52)
[2021-03-02 08:53] VITALS: BP 144/86; PULSE 94
[2021-03-02] MEDS: amLODIPine Besylate 10 MG TABLET PO (08:53)
[2021-03-02 08:55] VITALS: BP 144/86; PULSE 94
[2021-03-02] MEDS: LORazepam 0.5 MG TABLET PO ×5 (08:55→20:32)
[2021-03-02] MEDS: Propranolol HCL 10 MG TABLET PO ×3 (08:55→20:28)
[2021-03-02] MEDS: Cholecalciferol (Vitamin D3) 25 MCG TABLET 50 MCG PO (09:04)
[2021-03-02] MEDS: Dicyclomine HCl 10 MG CAPSULE 30 MG PO ×3 (09:04→20:32)
--- NOTE | 2021-03-02 09:05 | P.CONCA_ITS ---
History of Present Illness History of Present Illness Date of Service: 03/02/21 Requesting physician: Nacho Peña Consult reason: pre-op evaluation Chief complaint: Confusion anxiety Narrative: I was asked to see Jameel in cardiology consultation today for preoperative cardiovascular evaluation prior to ECT therapy as well as evaluati on for nortriptyline. Patient is 71-year-old male who is admitted for depression and severe anxiety. He also has confusion. Patient was last seen in Cardiology Clinic in 2019 and did not come for follow-up, unclear reasons. He says he thought that he was advised not to come for follow-up. He is currently not on aspirin therapy as he said he has bleeding issues from small cuts. He is also not on statin therapy because of joint discomfort. He is currently taking propranolol and amlodipine for blood pressure and propranolol as well for anxiety. In the past he has had ECT therapy which has worked for him for his psychiatric condition however these have been withheld due to fear for cardi ovascular disease. On further questioning patient says that he has not had any anginal symptoms since his stenting to the circumflex artery in 1999. His symptoms include bilateral shoulder discomfort. He says he is a young 71 and is very active and does not have any exertional chest discomfort or bilateral shoulder discomfort. He has more than 4 METs of physical capacity. Patient denies any other cardiovascular symptoms at current time. Review of Systems Constitutional: Constitutional: Reports no additional constitutional complaints Cardiovascular: Cardiovascular: Reports no additional cardiovascular complaints Respiratory: Respiratory: Reports no additional respiratory complaints Gastrointestinal: Gastrointestinal: Reports no additional gastrointestinal complaints Genitourinary: Genitourinary: Reports no additional male genitourinary complaints Neurologic: Reports system reviewed and no additional complaints, except as documented Psychiatric: Psychiatric: Reports no additional psychiatric complaints Endocrine: Endocrine: Reports no additional endocrine complaints Hematologic/Lymphatic: Hematologic/Lymphatic: Reports no additional hematologic/lymphatic complaints PMFSH Past Medical History Medical History Abnormal nuclear stress test CAD (coronary artery disease) Chronic respiratory failure COPD (chronic obstructive pulmonary disease) Depression Generalized anxiety disorder HLD (hyperlipidemia) Major depressive disorder, recurrent episode, severe with anxious distress Pneumonitis Pre-op evaluation Preop cardiovascular exam Smoking Family History Family History Father No problems noted. Mother No problems noted. Surgical History Surgical History Stented coronary artery Social History Social History Household Members: Unknown / Unable to assess Housing: House Do you presently have visiting nurse or other home services: No Unable to assess alcohol history related to: Unknown Alcohol intake: never Patient Tobacco Use Status: Former Tobacco user Quit Date: 3 months ago Tobacco use type: Cigarette Years Smoked: 40 Smoked in Last 30 Days: No e-Cigarette/Vaping Use: Former Use Patient Interested in Nicotine Replacement: No Patient Given Instructions on How to Stop Smoking: No Second Hand Smoke Exposure: No Use of substances other than those prescribed or required for medical reasons: Unknown Currently Displaying Signs/Symptoms of Drug Intoxication Withdrawal: No Have you been hit, kicked, punched, or otherwise hurt by someone within the past year? If so, by whom?: No Do you feel safe in your current relationship?: No Is there a partner from a previous relationship who is making you feel unsafe now?: No Are you made to feel afraid or neglected: No Advance Directives: No Advance Directives Information Provided: No Advance Directives on File: No Do you have thoughts of harming others: None Do you have a plan to hurt others: No Plan Recently lost weight without trying: Unsure Nutrition Risks: No Nutritional Risk Poor oral hygiene: No service: No Sexual orientation: Lesbian/Triaan/Homosexual Meds Allergies Allergy/AdvReac Type Severity Reaction Status Date / Time lamotrigine [From LAMICTAL] Allergy Severe agitation Verified 02/23/21 16:08 and anxiety with titration codeine [CODEINE] Allergy Intermediate INSOMNIA Verified 02/23/21 16:08 Penicillins [PENICILLINS] Allergy Intermediate RASH Verified 02/23/21 16:08 epinephrine [EPINEPHRINE] AdvReac Intermediate Hypertensio Verified 02/23/21 16:08 n escitalopram [From LEXAPRO] AdvReac Intermediate NIGHTMARES Verified 02/23/21 16:08 sertraline [From ZOLOFT] AdvReac Intermediate NIGHTMARES Verified 02/23/21 16:08 sulfamethoxazole AdvReac Intermediate STOMACH Verified 02/23/21 16:08 [From BACTRIM] UPSET Active Medications: Current Medications Generic Name Dose Route Start Last Admin Trade Name Freq PRN Reason Stop Dose Admin Acetaminophen 650 mg 02/27/21 19:42 02/27/21 22:02 Acetaminophen 325 Mg Tablet PO 650 mg Q6H PRN Administration Headache/Pain Mild Scale (1-3) Al Hydroxide/Mg Hydroxide 30 ml 02/27/21 19:42 03/01/21 21:16 Magnesium Hydrox/Alum Hydrox 30 Ml Oral.Susp PO 30 ml Q6H PRN Administration Heartburn/Nausea Albuterol Sulfate 2 puff 02/27/21 19:42 03/02/21 07:50 Albuterol Sulfate 90 Mcg 8 Gm Inhaler INHALE 2 puff Q4H PRN Administration Shortness Of Breath Amlodipine Besylate 10 mg 02/28/21 09:00 03/01/21 09:39 Amlodipine Besylate 10 Mg Tablet PO 10 mg DAILY ÁLVARO Administration Protocol Ascorbic Acid 1,000 mg 02/28/21 09:00 03/01/21 08:41 Ascorbic Acid 500 Mg Tablet PO 1,000 mg DAILY ÁLVARO Administration Azithromycin 250 mg 02/27/21 19:42 03/01/21 19:46 Azithromycin 250 Mg Tablet PO 250 mg MOWEFR ÁLVARO Administration Dicyclomine HCl 30 mg 02/28/21 13:00 03/01/21 20:54 Dicyclomine Hcl 10 Mg Capsule PO 30 mg TID ÁLVARO Administration Divalproex Sodium 125 mg 02/28/21 15:00 03/01/21 20:54 Divalproex Sodium Sprinkles 125 Mg Cap.Dr[place]Spr PO 125 mg TID ÁLVARO Administration Famotidine 40 mg 02/27/21 21:00 03/01/21 20:53 Famotidine 20 Mg Tablet PO 40 mg BEDTIME ÁLVARO Administration Fluticasone/Vilanterol 1 puff 02/28/21 08:00 03/02/21 07:52 Fluticasone/Vilanterol 200/25 Blst.W.Dev INHALE 1 puff RDAILY ÁLVARO Administration Levalbuterol HCl 1.25 mg 02/27/21 19:58 03/01/21 21:41 Levalbuterol Hcl 1.25 Mg/0.5 Ml Vial.Neb INHALE 1.25 mg Q4H PRN Administration Shortness Of Breath Or Wheezing Lorazepam 0.5 mg 02/28/21 13:37 03/01/21 12:19 Lorazepam 0.5 Mg Tablet PO 0.5 mg Q6H PRN Administration Anxiety Lorazepam 0.5 mg 02/28/21 15:00 03/01/21 20:54 Lorazepam 0.5 Mg Tablet PO 0.5 mg TID ÁLVARO Administration Magnesium Hydroxide 30 ml 02/27/21 19:42 Milk Of Magnesia 30 Ml Oral.Susp PO DAILY PRN Constipation Multivitamins/Vitamin C 1 tab 02/28/21 09:00 03/01/21 08:41 Multivitamin Tablet PO 1 tab DAILY ÁLVARO Administration Nicotine Polacrilex 4 mg 02/27/21 19:42 Nicotine Polacrilex 2 Mg Gum BUCCAL Q2H PRN Nicotine Cravings Olanzapine 2.5 mg 02/28/21 21:00 03/01/21 21:16 Olanzapine 2.5 Mg Tablet PO Not Given BEDTIME ÁLVARO Propranolol HCl 10 mg 02/27/21 21:00 03/01/21 20:54 Propranolol Hcl 10 Mg Tablet PO 10 mg TID ÁLVARO Administration Protocol Tiotropium [place] 2 puff 02/28/21 08:00 03/02/21 07:50 Tiotropium [place] 18 Mcg Cap.W.Dev INHALE 2 puff RDAILY ÁLVARO Administration Vitamin D 50 mcg 02/28/21 09:00 03/01/21 08:40 Cholecalciferol (Vitamin D3) 25 Mcg Tablet PO 50 mcg DAILY ÁLVARO Administration Home Medications Medication Instructions Recorded Confirmed Last Taken Type Spiriva Respimat 2 puff PO DAILY 07/08/20 02/27/21 02/26/21 History amlodipine 1 tab PO DAILY 07/08/20 02/27/21 02/26/21 History ascorbic acid (vitamin C) 1,000 mg 1,000 mg PO DAILY 07/21/20 02/27/21 02/26/21 History tablet cholecalciferol (vitamin D3) 25 50 mcg PO DAILY cap 07/21/20 02/27/21 02/26/21 History mcg (1,000 unit) capsule famotidine 40 mg PO BEDTIME 02/10/21 02/27/21 02/26/21 History fluticasone propion-salmeterol 1 inh INHALATION BID 02/10/21 02/27/21 02/26/21 History [Advair Diskus] levalbuterol HCl [Xopenex] 1.25 mg INHALATION Q4H PRN 02/10/21 02/27/21 Unknown History propranolol 10 mg PO TID 02/10/21 02/27/21 02/26/21 History azithromycin 250 mg PO MOWEFR 02/27/21 02/27/21 02/26/21 History dicyclomine 10 mg PO TID 02/27/21 02/27/21 02/26/21 History multivitamin 1 tab PO DAILY 02/27/21 02/27/21 02/26/21 History Physical Exam Vital Signs: Vital Signs: Last Vital Signs Temp 97.6 F 03/01/21 18:35 Pulse 82 03/01/21 20:54 Resp 18 03/01/21 18:35 BP 138/67 03/01/21 20:54 Pulse Ox 96 03/01/21 18:35 Oxygen Flow Rate 2 02/27/21 07:49 Body Mass Index 0.2 Const: General: cooperative, comfortable, no acute distress, alert and awake Nutritional Appearance: average body habitus Orientation/consciousness: patient oriented x3 Limitations: no limitations HENMT: Head: Yes normocephalic and Yes atraumatic Neck: Neck: Yes trachea midline, Yes supple and Yes no JVD Carotids: bruit bilateral Resp: Effort & Inspection: normal respiratory effort Auscultation: clear to auscultation bilaterally Cardio: Jugular venous distension: no JVD Palpation: normal PMI Rate: regular rate Rhythm: regular rhythm Heart sounds: S1 normal heart sound present and S2 normal heart sound present GI: Auscultation: normal bowel sounds Skin: General skin exam: no rashes or lesions noted Neuro: General: patient oriented x3 and no focal motor deficits Extrem: General: Yes no clubbing, cyanosis or edema Results Labs and Meds Result diagrams: 02/27/21 09:02 02/27/21 09:02 ECG Attestation: I personally reviewed and interpreted this ECG as follows: Interpretation: EKG shows nonspecific ST changes. Assessment and Plan (1) Preoperative cardiovascular examination: Status: Acute Preoperative cardiovascular examination in elderly man with prior CAD remotely with no recent symptoms of angina on current medical therapy with well controlled blood pressure and more than 4 METs of physical capacity. He did h ave mild basal inferior perfusion defect in the past. Her given his lack of symptoms no further invasive therapy was pursued. At current time if ECT is the only mode of therapy that is going to work for his resistant depression/anxiety disorder, I think from Cardiology perspective he can undergo the procedure with intermediate risk for perioperative cardiovascular event rate. There is likelihood of developing acute coronary syndrome postprocedure, however he will be in a monitored setting. Post procedure EKG should be performed. Continue propranolol as an anti adrenergic agent continuously in the perioperative.. Also continue Norvasc for blood pressure control. There is also propose of for use of nortriptyline in this patient. Tricyclic antidepressants generally carry a higher cardiovascular risk due to multiple effects including vagolytic as well as QT prolongation. His QT interval currently is within normal limits. However again if it is felt that nortriptyline therapy is going to be factual in absence of effect of other drug therapies at have been tried in the past which have better cardiovascular safety profile, there is no prohibitive contraindication to use of nortriptyline. Follow-up EKG after initiating nortriptyline therapy. Please re-consult us if there any cardiac issues. Thank you for allowing us to partake in his care (2) CAD (coronary artery disease): Status: Acute Coronary artery disease is currently stable. He is not have any symptoms. Continue aggressive medical therapy. I discussed about use of aspirin on him and he is willing to restart, consider starting low-dose aspirin therapy. Continue amlodipine and Inderal for blood pressure control as well as to reduce ischemia. He is not able to tolerate statins in the past. However he requires aggressive lipid modification to reduce his future cardiovascular risk. Can discuss this as outpatient. Advised to follow-up with Dr. Tucker on discharge. Procedures Date of Service Date of Service: 03/02/21
--- NOTE | 2021-03-02 13:45 | P.PNPSI_ITS ---
Subjective Subjective Date of Service: 03/02/21 Reason For Visit: Confusion anxiety Depression Subjective Notes: Conditional Voluntary Guardianship: No Medical Problems Affecting Mental Status: Yes Interim History: 71 yo male hx of depression anxiety depressed anxious Medication Compliance: Intermittent Side effects from medications: Yes Mental Status Exam Mental Status Exam Patient Appearance: Appropriate Patient Orientation: Person, Place and Situation Level of Consciousness: Awake Patient Behavior: Anxious Mood Description: Sad, Nervous and Apprehensive Affect Description: Depressed, Fearful, Anxious and Apprehensive Patient Cognition Impaired: Yes Ability to Follow Directions: Fair Speech Pattern: Perseverating Memory Description: Recent Impaired and Working Impaired Hallucinations: None Delusions: Not Present Thought Process: Distracted, Rumination and Confusion Thought Content: positive for Preoccupation, positive for Suicidal Ideation (Hopeless helpless thoughts that he might be better off denies plan or intent) and negative for Homicidal Ideation Depressive Symptoms: Increased Anxiety, Increased Irritability and Difficulty Sleeping Abnormal Motor Activity Signs and Symptoms: Restlessness Judgement: Fair Judgement and Insight: Patient anxious irritable suspicious and reactive he had been markedly improved previously on Depakote alprazolam he is currently s uspicious of all medication has a history of somatic preoccupation with medication and frequently going off Diagnostics Vital Signs (24Hr): Vital Signs - 24 hr 03/01/21 13:51 03/01/21 15:22 03/01/21 16:43 Temperature 97.2 F 97.2 F Pulse Rate 90 90 90 Respiratory Rate 20 20 Blood Pressure 130/72 130/72 130/72 Pulse Oximetry 03/01/21 18:35 03/01/21 20:54 03/02/21 08:53 Temperature 97.6 F Pulse Rate 86 82 94 Respiratory Rate 18 Blood Pressure 115/61 138/67 144/86 H Pulse Oximetry 96 03/02/21 08:55 Temperature Pulse Rate 94 Respiratory Rate Blood Pressure 144/86 H Pulse Oximetry Body Mass Index 0.2 Labs Results: 02/27/21 09:02 02/27/21 09:02 Medications Medications Current Medications Generic Name Dose Route Start Last Admin Trade Name Freq PRN Reason Stop Dose Admin Acetaminophen 650 mg 02/27/21 19:42 02/27/21 22:02 Acetaminophen 325 Mg Tablet PO 650 mg Q6H PRN Administration Headache/Pain Mild Scale (1-3) Al Hydroxide/Mg Hydroxide 30 ml 02/27/21 19:42 03/01/21 21:16 Magnesium Hydrox/Alum Hydrox 30 Ml Oral.Susp PO 30 ml Q6H PRN Administration Heartburn/Nausea Albuterol Sulfate 2 puff 02/27/21 19:42 03/02/21 07:50 Albuterol Sulfate 90 Mcg 8 Gm Inhaler INHALE 2 puff Q4H PRN Administration Shortness Of Breath Amlodipine Besylate 10 mg 02/28/21 09:00 03/02/21 08:53 Amlodipine Besylate 10 Mg Tablet PO 10 mg DAILY ÁLVARO Administration Protocol Ascorbic Acid 1,000 mg 02/28/21 09:00 03/02/21 08:52 Ascorbic Acid 500 Mg Tablet PO 1,000 mg DAILY ÁLVARO Administration Azithromycin 250 mg 02/27/21 19:42 03/01/21 19:46 Azithromycin 250 Mg Tablet PO 250 mg MOWEFR ÁLVARO Administration Dicyclomine HCl 30 mg 02/28/21 13:00 03/02/21 09:04 Dicyclomine Hcl 10 Mg Capsule PO 30 mg TID ÁLVARO Administration Divalproex Sodium 125 mg 02/28/21 15:00 03/02/21 08:52 Divalproex Sodium Sprinkles 125 Mg Cap. PO 125 mg TID ÁLVARO Administration Famotidine 40 mg 02/27/21 21:00 03/01/21 20:53 Famotidine 20 Mg Tablet PO 40 mg BEDTIME ÁLVARO Administration Fluticasone/Vilanterol 1 puff 02/28/21 08:00 03/02/21 07:52 Fluticasone/Vilanterol 200/25 Blst.W.Dev INHALE 1 puff RDAILY ÁLVARO Administration Levalbuterol HCl 1.25 mg 02/27/21 19:58 03/01/21 21:41 Levalbuterol Hcl 1.25 Mg/0.5 Ml Vial.Neb INHALE 1.25 mg Q4H PRN Administration Shortness Of Breath Or Wheezing Lorazepam 0.5 mg 02/28/21 13:37 03/02/21 12:31 Lorazepam 0.5 Mg Tablet PO 0.5 mg Q6H PRN Administration Anxiety Lorazepam 0.5 mg 02/28/21 15:00 03/02/21 08:55 Lorazepam 0.5 Mg Tablet PO 0.5 mg TID ÁLVARO Administration Magnesium Hydroxide 30 ml 02/27/21 19:42 Milk Of Magnesia 30 Ml Oral.Susp PO DAILY PRN Constipation Multivitamins/Vitamin C 1 tab 02/28/21 09:00 03/02/21 08:52 Multivitamin Tablet PO 1 tab DAILY ÁLVARO Administration Nicotine Polacrilex 4 mg 02/27/21 19:42 Nicotine Polacrilex 2 Mg Gum BUCCAL Q2H PRN Nicotine Cravings Olanzapine 2.5 mg 02/28/21 21:00 03/01/21 21:16 Olanzapine 2.5 Mg Tablet PO Not Given BEDTIME [facility] Propranolol HCl 10 mg 02/27/21 21:00 03/02/21 08:55 Propranolol Hcl 10 Mg Tablet PO 10 mg TID ÁLVARO Administration Protocol Tiotropium [place] 2 puff 02/28/21 08:00 03/02/21 07:50 Tiotropium [place] 18 Mcg Cap.W.Dev INHALE 2 puff RDAILY ÁLVARO Administration Vitamin D 50 mcg 02/28/21 09:00 03/02/21 09:04 Cholecalciferol (Vitamin D3) 25 Mcg Tablet PO 50 mcg DAILY ÁLVARO Administration Allergies Allergies Allergy/AdvReac Type Severity Reaction Status Date / Time lamotrigine [From LAMICTAL] Allergy Severe agitation Verified 02/23/21 16:08 and anxiety with titration codeine [CODEINE] Allergy Intermediate INSOMNIA Verified 02/23/21 16:08 Penicillins [PENICILLINS] Allergy Intermediate RASH Verified 02/23/21 16:08 epinephrine [EPINEPHRINE] AdvReac Intermediate Hypertensio Verified 02/23/21 16:08 n escitalopram [From LEXAPRO] AdvReac Intermediate NIGHTMARES Verified 02/23/21 16:08 sertraline [From ZOLOFT] AdvReac Intermediate NIGHTMARES Verified 02/23/21 16:08 sulfamethoxazole AdvReac Intermediate STOMACH Verified 02/23/21 16:08 [From BACTRIM] UPSET Assessment & Plan Assessment & Plan (1) Preoperative cardiovascular examination: Status: Acute Code(s): Z01.810 - Encounter for preprocedural cardiovascular examination (2) CAD (coronary artery disease): Status: Acute Code(s): I25.10 - Atherosclerotic heart disease of [place] coronary artery without angina pectoris (3) Confusion with nonfocal neurological examination: Status: Acute Code(s): R41.0 - Disorientation, unspecified (4) Generalized anxiety disorder: Status: Acute Code(s): F41.1 - Generalized anxiety disorder (5) 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 He did have mild basal inferior perfusion defect in the past. Her given his lack of symptoms no further invasive therapy was pursued. At current time if ECT is the only mode of therapy that is going to work for his resistant depression/anxiety disorder, I think from Cardiology perspective he can undergo the procedure with intermediate risk for perioperative cardiovascular event rate. There is likelihood of developing acute coronary syndrome postprocedure, however he will be in a monitored setting. Post procedure EKG should be performed. Continue p ropranolol as an anti adrenergic agent continuously in the perioperative.. Also continue Norvasc for blood pressure control. There is also propose of for use of nortriptyline in this patient. Tricyclic antidepressants generally carry a higher cardiovascular risk due to multiple effects including vagolytic as well as QT prolongation. His QT interval currently is within normal limits. However again if it is felt that nortriptyline therapy is going to be factual in absence of effect of other drug therapies at have been tried in the past which have better cardiovascular safety profile, there is no prohibitive contraindication to use of nortriptyline. Follow-up EKG after initiating nortriptyline therapy. Please re-consult us if there any cardiac issues. Thank you for allowing us to partake in his care Coronary artery disease is currently stable. He is not have any symptoms. Continue aggressive medical therapy. I discussed about use of aspirin on him and he is willing to restart, consider starting low-dose aspirin therapy. Continue amlodipine and Inderal for blood pressure control as well as to reduce ischemia. He is not able to tolerate statins in the past. However he requires aggressive lipid modification to reduce his future cardiovascular risk. Can discuss this as outpatient. Advised to follow-up with Dr. Tucker on discharge. See above regarding cardiac issues patient have difficulty processing information this time ECT possible if needed for now Ativan increased to 0.5 mg q.i.d. had done much better on alprazolam if needed but start 0.25 t.i.d. Dpakote 125 t.i.d. ck level Greater than 50% of the session was spent on counseling and/or coordination of care Reason for contiued inpatient stay Substantial Risk for: inability to function, rapid decompensation and med/psych decompensation
[2021-03-02 14:14] VITALS: BP 116/82; PULSE 93
[2021-03-02 18:00] VITALS: BP 127/60; PULSE 69; RESP 16; TEMP 36.6; O2SAT 95
[2021-03-02 20:28] VITALS: BP 127/60; PULSE 69
[2021-03-02] MEDS: Famotidine 20 MG TABLET 40 MG PO (20:28)
[2021-03-03] VITALS (7 sets, daily range): BP systolic 99–135; BP diastolic 56–76; PULSE 70–88; RESP 16–20; TEMP 36.7–36.9; O2SAT 95–96
[2021-03-03] MEDS: Albuterol Sulfate 90 MCG 8 GM INHALER 2 PUFF INHALE ×2 (06:14→18:20)
[2021-03-03] MEDS: LORazepam 0.5 MG TABLET PO ×6 (06:20→20:35)
[2021-03-03 08:03] LABS: Valproate 25.3 mcg/mL (50.0-100.0)
[2021-03-03] MEDS: Fluticasone/Vilanterol 200/25 BLST.W.DEV 1 PUFF INHALE (08:13)
[2021-03-03] MEDS: Cholecalciferol (Vitamin D3) 25 MCG TABLET 50 MCG PO (08:17)
[2021-03-03] MEDS: Dicyclomine HCl 10 MG CAPSULE 30 MG PO ×3 (08:17→20:33)
[2021-03-03] MEDS: Propranolol HCL 10 MG TABLET PO ×3 (08:19→20:36)
[2021-03-03] MEDS: Ascorbic Acid 500 MG TABLET 1000 MG PO (08:19)
[2021-03-03] MEDS: Divalproex Sodium Sprinkles 125 MG CAP.DR.SPR PO ×3 (08:19→20:35)
[2021-03-03] MEDS: Multivitamin TABLET 1 TAB PO (08:19)
[2021-03-03] MEDS: amLODIPine Besylate 10 MG TABLET PO (08:20)
--- NOTE | 2021-03-03 11:36 | HO.PSYCHPN ---
Subjective Subjective Date of Service: 03/03/21 Reason For Visit: Confusion anxiety Depression Interim History: The patient remains somatically preoccupied with the possible side effects of medications. He is going to have a meeting on Saturday with his regular psychiatrist and family for the possiblity of ECT. Medication Compliance: Yes Side effects from medications: Yes Mental Status Exam Mental Status Exam Patient Appearance: Disheveled Patient Orientation: Person Patient Behavior: Guarded Mood Description: Withdrawn Affect Description: Constricted Ability to Follow Directions: Good Speech Pattern: Clear Delusions: Paranoid Ideation (somatically preoccupied) Thought Content: positive for Obsessional Thoughts Judgement: Fair Diagnostics Vital Signs (24Hr): Vital Signs - 24 hr 03/02/21 14:14 03/02/21 18:00 03/02/21 20:28 Temperature 97.8 F Pulse Rate 93 69 69 Respiratory Rate 16 Blood Pressure 116/82 127/60 127/60 Pulse Oximetry 95 03/03/21 06:00 03/03/21 08:10 03/03/21 08:19 Temperature 98.0 F 98.0 F Pulse Rate 70 88 88 Respiratory Rate 18 20 Blood Pressure 99/56 L 119/57 L 119/57 L Pulse Oximetry 95 03/03/21 08:20 Temperature Pulse Rate 88 Respiratory Rate Blood Pressure 119/57 L Pulse Oximetry Body Mass Index 0.2 Labs Results: 02/27/21 09:02 02/27/21 09:02 Labs: Laboratory Results - last 48 hr 03/03/21 07:25 Valproic Acid 25.3 L Medications Medications Current Medications Generic Name Dose Route Start Last Admin Trade Name Freq PRN Reason Stop Dose Admin Acetaminophen 650 mg 02/27/21 19:42 02/27/21 22:02 Acetaminophen 325 Mg Tablet PO 650 mg Q6H PRN Administration Headache/Pain Mild Scale (1-3) Al Hydroxide/Mg Hydroxide 30 ml 02/27/21 19:42 03/01/21 21:16 Magnesium Hydrox/Alum Hydrox 30 Ml Oral.Susp PO 30 ml Q6H PRN Administration Heartburn/Nausea Albuterol Sulfate 2 puff 02/27/21 19:42 03/03/21 06:14 Albuterol Sulfate 90 Mcg 8 Gm Inhaler INHALE 2 puff Q4H PRN Administration Shortness Of Breath Amlodipine Besylate 10 mg 02/28/21 09:00 03/03/21 08:20 Amlodipine Besylate 10 Mg Tablet PO 10 mg DAILY ÁLVARO Administration Protocol Ascorbic Acid 1,000 mg 02/28/21 09:00 03/03/21 08:19 Ascorbic Acid 500 Mg Tablet PO 1,000 mg DAILY ÁLVARO Administration Azithromycin 250 mg 02/27/21 19:42 03/01/21 19:46 Azithromycin 250 Mg Tablet PO 250 mg MOWEFR ÁLVARO Administration Dicyclomine HCl 30 mg 02/28/21 13:00 03/03/21 08:17 Dicyclomine Hcl 10 Mg Capsule PO 30 mg TID ÁLVARO Administration Divalproex Sodium 125 mg 02/28/21 15:00 03/03/21 08:19 Divalproex Sodium Sprinkles 125 Mg Cap.Dr.Spr PO 125 mg TID ÁLVARO Administration Famotidine 40 mg 02/27/21 21:00 03/02/21 20:28 Famotidine 20 Mg Tablet PO 40 mg BEDTIME ÁLVARO Administration Fluticasone/Vilanterol 1 puff 02/28/21 08:00 03/03/21 08:13 Fluticasone/Vilanterol 200/25 Blst.W.Dev INHALE 1 puff RDAILY ÁLVARO Administration Levalbuterol HCl 1.25 mg 02/27/21 19:58 03/01/21 21:41 Levalbuterol Hcl 1.25 Mg/0.5 Ml Vial.Neb INHALE 1.25 mg Q4H PRN Administration Shortness Of Breath Or Wheezing Lorazepam 0.5 mg 02/28/21 13:37 03/03/21 06:20 Lorazepam 0.5 Mg Tablet PO 0.5 mg Q6H PRN Administration Anxiety Lorazepam 0.5 mg 03/02/21 14:00 03/03/21 09:23 Lorazepam 0.5 Mg Tablet PO 0.5 mg QID ÁLVARO Administration Magnesium Hydroxide 30 ml 02/27/21 19:42 Milk Of Magnesia 30 Ml Oral.Susp PO DAILY PRN Constipation Multivitamins/Vitamin C 1 tab 02/28/21 09:00 03/03/21 08:19 Multivitamin Tablet PO 1 tab DAILY ÁLVARO Administration Nicotine Polacrilex 4 mg 02/27/21 19:42 Nicotine Polacrilex 2 Mg Gum BUCCAL Q2H PRN Nicotine Cravings Olanzapine 2.5 mg 02/28/21 21:00 03/03/21 01:05 Olanzapine 2.5 Mg Tablet PO Not Given BEDTIME [facility] Propranolol HCl 10 mg 02/27/21 21:00 03/03/21 08:19 Propranolol Hcl 10 Mg Tablet PO 10 mg TID [facility] Administration Protocol Tiotropium [place] 2 puff 02/28/21 08:00 03/03/21 08:14 Tiotropium [place] 18 Mcg Cap.W.Dev INHALE 2 puff RDAILY [facility] Administration Vitamin D 50 mcg 02/28/21 09:00 03/03/21 08:17 Cholecalciferol (Vitamin D3) 25 Mcg Tablet PO 50 mcg DAILY ÁLVARO Administration Allergies Allergies Allergy/AdvReac Type Severity Reaction Status Date / Time lamotrigine [From LAMICTAL] Allergy Severe agitation Verified 02/23/21 16:08 and anxiety with titration codeine [CODEINE] Allergy Intermediate INSOMNIA Verified 02/23/21 16:08 Penicillins [PENICILLINS] Allergy Intermediate RASH Verified 02/23/21 16:08 epinephrine [EPINEPHRINE] AdvReac Intermediate Hypertensio Verified 02/23/21 16:08 n escitalopram [From LEXAPRO] AdvReac Intermediate NIGHTMARES Verified 02/23/21 16:08 sertraline [From ZOLOFT] AdvReac Intermediate NIGHTMARES Verified 02/23/21 16:08 sulfamethoxazole AdvReac Intermediate STOMACH Verified 02/23/21 16:08 [From BACTRIM] UPSET Assessment & Plan Assessment & Plan (1) Preoperative cardiovascular examination: Status: Acute Code(s): Z01.810 - Encounter for preprocedural cardiovascular examination (2) CAD (coronary artery disease): Status: Acute Code(s): I25.10 - Atherosclerotic heart disease of [place] coronary artery without angina pectoris (3) Confusion with nonfocal neurological examination: Status: Acute Code(s): R41.0 - Disorientation, unspecified (4) Generalized anxiety disorder: Status: Acute Code(s): F41.1 - Generalized anxiety disorder (5) 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 Preoperative cardiovascular examination in elderly man with prior CAD remotely with no recent symptoms of angina on current medical therapy with well controlled blood pressure and more than 4 METs of physical capacity. He did have mild basal inferior perfusion defect in the past. Her given his lack of symptoms no further invasive therapy was pursued. At current time if ECT is the only mode of therapy that is going to work for his resistant depression/anxiety disorder, I think from Cardiology perspective he can undergo the procedure with intermediate risk for perioperative cardiovascular event rate. There is likelihood of developing acute coronary syndrome postprocedure, however he will be in a monitored setting. Post procedure EKG should be performed. Continue propranolol as an anti adrenergic agent continuously in the perioperative.. Also continue Norvasc for blood pressure control. There is also propose of for use of nortriptyline in this patient. Tricyclic antidepressants generally carry a higher cardiovascular risk due to multiple effects including vagolytic as well as QT prolongation. His QT interval currently is within normal limits. However again if it is felt that nortriptyline therapy is going to be factual in absence of effect of other drug therapies at have been tried in the past which have better cardiovascular safety profile, there is no prohibitive contraindication to use of nortriptyline. Follow-up EKG after initiating nortriptyline therapy. Please re-consult us if there any cardiac issues. Thank you for allowing us to partake in his care Coronary artery disease is currently stable. He is not have any symptoms. Continue aggressive medical therapy. I discussed about use of aspirin on him and he is willing to restart, consider starting low-dose aspirin therapy. Continue amlodipine and Inderal for blood pressure control as well as to reduce ischemia. He is not able to tolerate statins in the past. However he requires aggressive lipid modification to reduce his future cardiovascular risk. Can discuss this as outpatient. Advised to follow-up with Dr. Tucker on discharge. See above regarding cardiac issues patient have difficulty processing information this time ECT possible if needed for now Ativan increased to 0.5 mg q.i.d. had done much better on alprazolam if needed but start 0.25 t.i.d. Dpakote 125 t.i.d. ck level Greater than 50% of the session was spent on counseling and/or coordination of care Reason for contiued inpatient stay Substantial Risk for: inability to function, rapid decompensation and med/psych decompensation
--- NOTE | 2021-03-03 15:46 | HO.PSYADMNOT ---
HPI Chief Complaint: Confusion anxiety Depression HPI Past Psychiatric History: History of good response to ECT past history of panic disorder has not been able to stabilize now for number of years despite outpatient therapy counseling partial hospital ongoing treatment with a nurse practitioner Trina iverson [facility] Medical History Abnormal nuclear stress test CAD (coronary artery disease) Chronic respiratory failure COPD (chronic obstructive pulmonary disease) Depression Generalized anxiety disorder HLD (hyperlipidemia) Major depressive disorder, recurrent episode, severe with anxious distress Pneumonitis Pre-op evaluation Preop cardiovascular exam Smoking Surgical History Stented coronary artery Social History: 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 He has a supportive family including sister and mother Trauma History: no history of sexual or physical trauma Diagnostics Vital Signs (24Hr): Vital Signs - 24 hr 03/02/21 18:00 03/02/21 20:28 03/03/21 06:00 Temperature 97.8 F 98.0 F Pulse Rate 69 69 70 Respiratory Rate 16 18 Blood Pressure 127/60 127/60 99/56 L Pulse Oximetry 95 95 03/03/21 08:10 03/03/21 08:19 03/03/21 08:20 Temperature 98.0 F Pulse Rate 88 88 88 Respiratory Rate 20 Blood Pressure 119/57 L 119/57 L 119/57 L Pulse Oximetry 03/03/21 15:11 Temperature Pulse Rate 77 Respiratory Rate Blood Pressure 135/76 Pulse Oximetry Body Mass Index 0.2 Labs Results: 02/27/21 09:02 02/27/21 09:02 Labs: Laboratory Results - last 48 hr 03/03/21 07:25 Valproic Acid 25.3 L Meds/Allergies Meds Home Medications Acetaminophen (Acetaminophen 325 Mg Tablet) 650 mg PO Q6H PRN PRN Reason: Headache/Pain Mild Scale (1-3) Last Admin: 02/27/21 22:02 Dose: 650 mg Documented by: Al Hydroxide/Mg Hydroxide (Magnesium Hydrox/Alum Hydrox 30 Ml Oral.Susp) 30 ml PO Q6H PRN PRN Reason: Heartburn/Nausea Last Admin: 03/01/21 21:16 Dose: 30 ml Documented by: Albuterol Sulfate (Albuterol Sulfate 90 Mcg 8 Gm Inhaler) 2 puff INHALE Q4H PRN PRN Reason: Shortness Of Breath Last Admin: 03/03/21 06:14 Dose: 2 puff Documented by: Amlodipine Besylate (Amlodipine Besylate 10 Mg Tablet) 10 mg PO DAILY [facility]; Protocol Last Admin: 03/03/21 08:20 Dose: 10 mg Documented by: Ascorbic Acid (Ascorbic Acid 500 Mg Tablet) 1,000 mg PO DAILY [facility] Last Admin: 03/03/21 08:19 Dose: 1,000 mg Documented by: Azithromycin (Azithromycin 250 Mg Tablet) 250 mg PO MOWEFR [facility] Last Admin: 03/01/21 19:46 Dose: 250 mg Documented by: Dicyclomine HCl (Dicyclomine Hcl 10 Mg Capsule) 30 mg PO TID [facility] Last Admin: 03/03/21 15:11 Dose: 30 mg Documented by: Divalproex Sodium (Divalproex Sodium Sprinkles 125 Mg Justen.) 125 mg PO TID [facility] Last Admin: 03/03/21 15:11 Dose: 125 mg Documented by: Famotidine (Famotidine 20 Mg Tablet) 40 mg PO BEDTIME [facility] Last Admin: 03/02/21 20:28 Dose: 40 mg Documented by: Fluticasone/Vilanterol (Fluticasone/Vilanterol 200/25 Blst.W.Dev) 1 puff INHALE RDAILY [facility] Last Admin: 03/03/21 08:13 Dose: 1 puff Documented by: Levalbuterol HCl (Levalbuterol Hcl 1.25 Mg/0.5 Ml Vial.Neb) 1.25 mg INHALE Q4H PRN PRN Reason: Shortness Of Breath Or Wheezing Last Admin: 03/01/21 21:41 Dose: 1.25 mg Documented by: Lorazepam (Lorazepam 0.5 Mg Tablet) 0.5 mg PO Q6H PRN PRN Reason: Anxiety Last Admin: 03/03/21 15:17 Dose: 0.5 mg Documented by: Lorazepam (Lorazepam 0.5 Mg Tablet) 0.5 mg PO QID [facility] Last Admin: 03/03/21 12:30 Dose: 0.5 mg Documented by: Magnesium Hydroxide (Milk Of Magnesia 30 Ml Oral.Susp) 30 ml PO DAILY PRN PRN Reason: Constipation Multivitamins/Vitamin C (Multivitamin Tablet) 1 tab PO DAILY [facility] Last Admin: 03/03/21 08:19 Dose: 1 tab Documented by: Nicotine Polacrilex (Nicotine Polacrilex 2 Mg Gum) 4 mg BUCCAL Q2H PRN PRN Reason: Nicotine Cravings Olanzapine (Olanzapine 2.5 Mg Tablet) 2.5 mg PO BEDTIME [facility] Last Admin: 03/03/21 01:05 Dose: Not Given Documented by: Propranolol HCl (Propranolol Hcl 10 Mg Tablet) 10 mg PO TID [facility]; Protocol Last Admin: 03/03/21 15:11 Dose: 10 mg Documented by: Tiotropium [place] (Tiotropium [place] 18 Mcg Cap.W.Dev) 2 puff INHALE RDAILY [facility] Last Admin: 03/03/21 08:14 Dose: 2 puff Documented by: Vitamin D (Cholecalciferol (Vitamin D3) 25 Mcg Tablet) 50 mcg PO DAILY [facility] Last Admin: 03/03/21 08:17 Dose: 50 mcg Documented by: Allergies Allergies Allergy/AdvReac Type Severity Reaction Status Date / Time lamotrigine [From LAMICTAL] Allergy Severe agitation Verified 02/23/21 16:08 and anxiety with titration codeine [CODEINE] Allergy Intermediate INSOMNIA Verified 02/23/21 16:08 Penicillins [PENICILLINS] Allergy Intermediate RASH Verified 02/23/21 16:08 epinephrine [EPINEPHRINE] AdvReac Intermediate Hypertensio Verified 02/23/21 16:08 n escitalopram [From LEXAPRO] AdvReac Intermediate NIGHTMARES Verified 02/23/21 16:08 sertraline [From ZOLOFT] AdvReac Intermediate NIGHTMARES Verified 02/23/21 16:08 sulfamethoxazole AdvReac Intermediate STOMACH Verified 02/23/21 16:08 [From BACTRIM] UPSET
--- NOTE | 2021-03-03 16:04 | HO.PSYCHPN ---
Subjective Subjective Date of Service: 03/03/21 Reason For Visit: Confusion anxiety Depression Mental Status Exam Mental Status Exam Patient Appearance: Disheveled Patient Orientation: Person Patient Behavior: Guarded Mood Description: Withdrawn Affect Description: Constricted Ability to Follow Directions: Good Speech Pattern: Clear Delusions: Paranoid Ideation (somatically preoccupied) Thought Content: positive for Obsessional Thoughts Judgement: Fair Diagnostics Vital Signs (24Hr): Vital Signs - 24 hr 03/02/21 18:00 03/02/21 20:28 03/03/21 06:00 Temperature 97.8 F 98.0 F Pulse Rate 69 69 70 Respiratory Rate 16 18 Blood Pressure 127/60 127/60 99/56 L Pulse Oximetry 95 95 03/03/21 08:10 03/03/21 08:19 03/03/21 08:20 Temperature 98.0 F Pulse Rate 88 88 88 Respiratory Rate 20 Blood Pressure 119/57 L 119/57 L 119/57 L Pulse Oximetry 03/03/21 15:11 Temperature Pulse Rate 77 Respiratory Rate Blood Pressure 135/76 Pulse Oximetry Body Mass Index 0.2 Labs Results: 02/27/21 09:02 02/27/21 09:02 Labs: Laboratory Results - last 48 hr 03/03/21 07:25 Valproic Acid 25.3 L Medications Medications Current Medications Generic Name Dose Route Start Last Admin Trade Name Freq PRN Reason Stop Dose Admin Acetaminophen 650 mg 02/27/21 19:42 02/27/21 22:02 Acetaminophen 325 Mg Tablet PO 650 mg Q6H PRN Administration Headache/Pain Mild Scale (1-3) Al Hydroxide/Mg Hydroxide 30 ml 02/27/21 19:42 03/01/21 21:16 Magnesium Hydrox/Alum Hydrox 30 Ml Oral.Susp PO 30 ml Q6H PRN Administration Heartburn/Nausea Albuterol Sulfate 2 puff 02/27/21 19:42 03/03/21 06:14 Albuterol Sulfate 90 Mcg 8 Gm Inhaler INHALE 2 puff Q4H PRN Administration Shortness Of Breath Amlodipine Besylate 10 mg 02/28/21 09:00 03/03/21 08:20 Amlodipine Besylate 10 Mg Tablet PO 10 mg DAILY ÁLVARO Administration Protocol Ascorbic Acid 1,000 mg 02/28/21 09:00 03/03/21 08:19 Ascorbic Acid 500 Mg Tablet PO 1,000 mg DAILY ÁLVARO Administration Azithromycin 250 mg 02/27/21 19:42 03/01/21 19:46 Azithromycin 250 Mg Tablet PO 250 mg MOWEFR ÁLVARO Administration Dicyclomine HCl 30 mg 02/28/21 13:00 03/03/21 15:11 Dicyclomine Hcl 10 Mg Capsule PO 30 mg TID ÁLVARO Administration Divalproex Sodium 125 mg 02/28/21 15:00 03/03/21 15:11 Divalproex Sodium Sprinkles 125 Mg Cap.Dr[place]intonSpr PO 125 mg TID ÁLVARO Administration Famotidine 40 mg 02/27/21 21:00 03/02/21 20:28 Famotidine 20 Mg Tablet PO 40 mg BEDTIME ÁLVARO Administration Fluticasone/Vilanterol 1 puff 02/28/21 08:00 03/03/21 08:13 Fluticasone/Vilanterol 200/25 Blst.W.Dev INHALE 1 puff RDAILY ÁLVARO Administration Levalbuterol HCl 1.25 mg 02/27/21 19:58 03/01/21 21:41 Levalbuterol Hcl 1.25 Mg/0.5 Ml Vial.Neb INHALE 1.25 mg Q4H PRN Administration Shortness Of Breath Or Wheezing Lorazepam 0.5 mg 02/28/21 13:37 03/03/21 15:17 Lorazepam 0.5 Mg Tablet PO 0.5 mg Q6H PRN Administration Anxiety Lorazepam 0.5 mg 03/02/21 14:00 03/03/21 12:30 Lorazepam 0.5 Mg Tablet PO 0.5 mg QID ÁLVARO Administration Magnesium Hydroxide 30 ml 02/27/21 19:42 Milk Of Magnesia 30 Ml Oral.Susp PO DAILY PRN Constipation Multivitamins/Vitamin C 1 tab 02/28/21 09:00 03/03/21 08:19 Multivitamin Tablet PO 1 tab DAILY ÁLVARO Administration Nicotine Polacrilex 4 mg 02/27/21 19:42 Nicotine Polacrilex 2 Mg Gum BUCCAL Q2H PRN Nicotine Cravings Olanzapine 2.5 mg 02/28/21 21:00 03/03/21 01:05 Olanzapine 2.5 Mg Tablet PO Not Given BEDTIME ÁLVARO Propranolol HCl 10 mg 02/27/21 21:00 03/03/21 15:11 Propranolol Hcl 10 Mg Tablet PO 10 mg TID ÁLVARO Administration Protocol Tiotropium [place] 2 puff 02/28/21 08:00 03/03/21 08:14 Tiotropium [place] 18 Mcg Cap.W.Dev INHALE 2 puff RDAILY ÁLVARO Administration Vitamin D 50 mcg 02/28/21 09:00 03/03/21 08:17 Cholecalciferol (Vitamin D3) 25 Mcg Tablet PO 50 mcg DAILY ÁLVARO Administration Allergies Allergies Allergy/AdvReac Type Severity Reaction Status Date / Time lamotrigine [From LAMICTAL] Allergy Severe agitation Verified 02/23/21 16:08 and anxiety with titration codeine [CODEINE] Allergy Intermediate INSOMNIA Verified 02/23/21 16:08 Penicillins [PENICILLINS] Allergy Intermediate RASH Verified 02/23/21 16:08 epinephrine [EPINEPHRINE] AdvReac Intermediate Hypertensio Verified 02/23/21 16:08 n escitalopram [From LEXAPRO] AdvReac Intermediate NIGHTMARES Verified 02/23/21 16:08 sertraline [From ZOLOFT] AdvReac Intermediate NIGHTMARES Verified 02/23/21 16:08 sulfamethoxazole AdvReac Intermediate STOMACH Verified 02/23/21 16:08 [From BACTRIM] UPSET Assessment & Plan Assessment & Plan (1) Preoperative cardiovascular examination: Status: Acute Code(s): Z01.810 - Encounter for preprocedural cardiovascular examination (2) CAD (coronary artery disease): Status: Acute Code(s): I25.10 - Atherosclerotic heart disease of [place] coronary artery without angina pectoris (3) Confusion with nonfocal neurological examination: Status: Acute Code(s): R41.0 - Disorientation, unspecified (4) Generalized anxiety disorder: Status: Acute Code(s): F41.1 - Generalized anxiety disorder (5) 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 See above regarding cardiac issues patient have difficulty processing information this time ECT possible if needed for now Ativan increased to 0.5 mg q.i.d. had done much better on alprazolam if needed but start 0.25 t.i.d. Dpakote 125 t.i.d. ck level Greater than 50% of the session was spent on counseling and/or coordination of care
--- NOTE | 2021-03-03 20:14 | PC.NURSE ---
This RN spoke with Dr. Massey, covering hospitalist, Hospitalist Consult is not needed for ECT as Cardiology Consult has been completed. IMAGING NURSE Re confirmed patient is cleared and on list for ECT scheduled to begin Tuesday 03/06.
[2021-03-03] MEDS: Famotidine 20 MG TABLET 40 MG PO (20:33)
[2021-03-04] MEDS: Ascorbic Acid 500 MG TABLET 1000 MG PO (08:02)
[2021-03-04] MEDS: Cholecalciferol (Vitamin D3) 25 MCG TABLET 50 MCG PO (08:03)
[2021-03-04] MEDS: Divalproex Sodium Sprinkles 125 MG CAP.DR.SPR PO ×3 (08:03→20:28)
[2021-03-04] MEDS: amLODIPine Besylate 10 MG TABLET PO (08:03)
[2021-03-04] MEDS: Multivitamin TABLET 1 TAB PO (08:03)
[2021-03-04] MEDS: Propranolol HCL 10 MG TABLET PO ×3 (08:03→20:28)
[2021-03-04] MEDS: Dicyclomine HCl 10 MG CAPSULE 30 MG PO ×3 (08:03→21:28)
[2021-03-04] MEDS: LORazepam 0.5 MG TABLET PO ×6 (08:03→21:28)
[2021-03-04] MEDS: Fluticasone/Vilanterol 200/25 BLST.W.DEV 1 PUFF INHALE (08:08)
[2021-03-04 10:00] VITALS: BP 130/78; PULSE 88; RESP 16; TEMP 36.7; O2SAT 98
[2021-03-04] MEDS: Acetaminophen 325 MG TABLET 650 MG PO (13:18)
[2021-03-04 15:21] VITALS: PULSE 83; O2SAT 94
--- NOTE | 2021-03-04 15:33 | HO.PSYCHPN ---
Subjective Subjective Date of Service: 03/04/21 Reason For Visit: Depression Review of Systems Cardiovascular: Reports as per HPI Respiratory: Reports as per HPI Gastrointestinal: Reports as per HPI Genitourinary: Reports as per HPI Musculoskeletal: Reports as per HPI Skin/Breast: Reports as per HPI and Reports rash Reports as per HPI Psychiatric: Reports anxiety, Reports depression, Reports difficulty concentrating, Reports hopelessness and Reports anhedonia Endocrine: Reports as per HPI Hematologic/Lymphatic: Reports as per HPI Allergic/Immunologic: Reports as per HPI Mental Status Exam Mental Status Exam Narrative: Reports today still feeling down depressed. Reports that prior to coming into the hospital was feeling very tearful, easily overwhelmed and emotional and breaking down for no reason. Reports his anxiety is high and sleep is broken. He reports wrist some benefit from medications, however he is hopeful regarding ECT. Reports that he did have this around 18 months ago. Denies SI. No overt psychosis noted. Is isolative and spends most of his time in his room or bed. Patient Appearance: Disheveled Patient Orientation: Person Level of Consciousness: Awake Patient Behavior: Guarded Mood Description: Withdrawn Affect Description: Constricted Patient Cognition Impaired: Yes Ability to Follow Directions: Good Speech Pattern: Clear Memory Description: Recent Impaired and Working Impaired Diagnostics Vital Signs (24Hr): Vital Signs - 24 hr 03/03/21 18:00 03/03/21 20:36 03/04/21 10:00 Temperature 98.4 F 98.0 F Pulse Rate 85 85 88 Respiratory Rate 16 16 Blood Pressure 120/76 120/70 130/78 Pulse Oximetry 96 98 03/04/21 15:21 Temperature Pulse Rate 83 Respiratory Rate Blood Pressure Pulse Oximetry Body Mass Index 0.2 Labs Results: 02/27/21 09:02 02/27/21 09:02 Labs: Laboratory Results - last 48 hr 03/03/21 07:25 Valproic Acid 25.3 L Medications Medications Current Medications Generic Name Dose Route Start Last Admin Trade Name Freq PRN Reason Stop Dose Admin Acetaminophen 650 mg 02/27/21 19:42 03/04/21 13:18 Acetaminophen 325 Mg Tablet PO 650 mg Q6H PRN Administration Headache/Pain Mild Scale (1-3) Al Hydroxide/Mg Hydroxide 30 ml 02/27/21 19:42 03/01/21 21:16 Magnesium Hydrox/Alum Hydrox 30 Ml Oral.Susp PO 30 ml Q6H PRN Administration Heartburn/Nausea Albuterol Sulfate 2 puff 02/27/21 19:42 03/03/21 18:20 Albuterol Sulfate 90 Mcg 8 Gm Inhaler INHALE 2 puff Q4H PRN Administration Shortness Of Breath Amlodipine Besylate 10 mg 02/28/21 09:00 03/04/21 08:03 Amlodipine Besylate 10 Mg Tablet PO 10 mg DAILY ÁLVARO Administration Protocol Ascorbic Acid 1,000 mg 02/28/21 09:00 03/04/21 08:02 Ascorbic Acid 500 Mg Tablet PO 1,000 mg DAILY ÁLVARO Administration Azithromycin 250 mg 02/27/21 19:42 03/04/21 03:53 Azithromycin 250 Mg Tablet PO Not Given MOWEFR ÁLVARO Dicyclomine HCl 30 mg 02/28/21 13:00 03/04/21 15:23 Dicyclomine Hcl 10 Mg Capsule PO 30 mg TID ÁLVARO Administration Divalproex Sodium 125 mg 02/28/21 15:00 03/04/21 15:23 Divalproex Sodium Sprinkles 125 Mg Cap. PO 125 mg TID ÁLVARO Administration Famotidine 40 mg 02/27/21 21:00 03/03/21 20:33 Famotidine 20 Mg Tablet PO 40 mg BEDTIME ÁLVARO Administration Fluticasone/Vilanterol 1 puff 02/28/21 08:00 03/04/21 08:08 Fluticasone/Vilanterol 200/25 Blst.W.Dev INHALE 1 puff RDAILY ÁLVARO Administration Levalbuterol HCl 1.25 mg 02/27/21 19:58 03/04/21 15:21 Levalbuterol Hcl 1.25 Mg/0.5 Ml Vial.Neb INHALE 1.25 mg Q4H PRN Administration Shortness Of Breath Or Wheezing Lorazepam 0.5 mg 02/28/21 13:37 03/04/21 13:17 Lorazepam 0.5 Mg Tablet PO 0.5 mg Q6H PRN Administration Anxiety Lorazepam 0.5 mg 03/02/21 14:00 03/04/21 12:33 Lorazepam 0.5 Mg Tablet PO 0.5 mg QID ÁLVARO Administration Magnesium Hydroxide 30 ml 02/27/21 19:42 Milk Of Magnesia 30 Ml Oral.Susp PO DAILY PRN Constipation Multivitamins/Vitamin C 1 tab 02/28/21 09:00 03/04/21 08:03 Multivitamin Tablet PO 1 tab DAILY ÁLVARO Administration Nicotine Polacrilex 4 mg 02/27/21 19:42 Nicotine Polacrilex 2 Mg Gum BUCCAL Q2H PRN Nicotine Cravings Olanzapine 2.5 mg 02/28/21 21:00 03/04/21 03:31 Olanzapine 2.5 Mg Tablet PO Not Given BEDTIME [facility] Propranolol HCl 10 mg 02/27/21 21:00 03/04/21 15:23 Propranolol Hcl 10 Mg Tablet PO 10 mg TID ÁLVARO Administration Protocol Tiotropium [place] 2 puff 02/28/21 08:00 03/04/21 08:08 Tiotropium [place] 18 Mcg Cap.W.Dev INHALE 2 puff RDAILY ÁLVARO Administration Vitamin D 50 mcg 02/28/21 09:00 03/04/21 08:03 Cholecalciferol (Vitamin D3) 25 Mcg Tablet PO 50 mcg DAILY ÁLVARO Administration Allergies Allergies Allergy/AdvReac Type Severity Reaction Status Date / Time lamotrigine [From LAMICTAL] Allergy Severe agitation Verified 02/23/21 16:08 and anxiety with titration codeine [CODEINE] Allergy Intermediate INSOMNIA Verified 02/23/21 16:08 Penicillins [PENICILLINS] Allergy Intermediate RASH Verified 02/23/21 16:08 epinephrine [EPINEPHRINE] AdvReac Intermediate Hypertensio Verified 02/23/21 16:08 n escitalopram [From LEXAPRO] AdvReac Intermediate NIGHTMARES Verified 02/23/21 16:08 sertraline [From ZOLOFT] AdvReac Intermediate NIGHTMARES Verified 02/23/21 16:08 sulfamethoxazole AdvReac Intermediate STOMACH Verified 02/23/21 16:08 [From BACTRIM] UPSET Assessment & Plan Assessment & Plan (1) Preoperative cardiovascular examination: Status: Acute Code(s): Z01.810 - Encounter for preprocedural cardiovascular examination (2) CAD (coronary artery disease): Status: Acute Code(s): I25.10 - Atherosclerotic heart disease of [place] coronary artery without angina pectoris (3) Confusion with nonfocal neurological examination: Status: Acute Code(s): R41.0 - Disorientation, unspecified (4) Generalized anxiety disorder: Status: Acute Code(s): F41.1 - Generalized anxiety disorder (5) 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 Cardiology cleared 03/02, hospitalist pending. ECT planned Saturday. Greater than 50% of the session was spent on counseling and/or coordination of care Reason for contiued inpatient stay Substantial Risk for: harm to self, inability to function and med/psych decompensation
[2021-03-04 17:36] VITALS: BP 125/69; PULSE 75; RESP 14; TEMP 36.7; O2SAT 97
[2021-03-04] MEDS: Famotidine 20 MG TABLET 40 MG PO (20:27)
[2021-03-04 20:28] VITALS: BP 129/70; PULSE 76
[2021-03-04] MEDS: OLANZapine 2.5 MG TABLET PO (20:28)
[2021-03-04 20:30] VITALS: BP 129/70; PULSE 76; RESP 18; TEMP 36.6; O2SAT 97
[2021-03-05 06:00] VITALS: BP 128/78; PULSE 78; TEMP 36.9; O2SAT 98
[2021-03-05] MEDS: LORazepam 0.5 MG TABLET PO ×6 (07:25→20:58)
[2021-03-05] MEDS: Propranolol HCL 10 MG TABLET PO ×3 (08:09→20:58)
[2021-03-05] MEDS: Ascorbic Acid 500 MG TABLET 1000 MG PO (08:09)
[2021-03-05] MEDS: Divalproex Sodium Sprinkles 125 MG CAP.DR.SPR PO ×3 (08:09→20:57)
[2021-03-05] MEDS: Dicyclomine HCl 10 MG CAPSULE 30 MG PO ×3 (08:09→20:57)
[2021-03-05] MEDS: amLODIPine Besylate 10 MG TABLET PO (08:10)
[2021-03-05] MEDS: Cholecalciferol (Vitamin D3) 25 MCG TABLET 50 MCG PO (08:10)
[2021-03-05] MEDS: Multivitamin TABLET 1 TAB PO (08:12)
[2021-03-05] MEDS: Fluticasone/Vilanterol 200/25 BLST.W.DEV 1 PUFF INHALE (08:14)
--- NOTE | 2021-03-05 14:12 | P.PNPSI_ITS ---
Subjective Subjective Date of Service: 03/05/21 Reason For Visit: Depression Interim History: No significant changes since yesterday. Appropriate anxiety around ECT tomorrow. Was focused on timing and does not want to be the last person. Otherwise has been isolative and room. Endorses hopelessness. Denied active SI. Appetite poor, motivation energy low. Sleep is broken. He was en quiring around Depakote level on same order for tomorrow Medication Compliance: Yes Side effects from medications: No Review of Systems Review of Systems Unremarkable Mental Status Exam Mental Status Exam Narrative: Seen in room. Pleasant and engaged. Anxious. Normal speech. Depressed. Endorses hopelessness. No psychosis. No active SI. Insight and judgment fair Diagnostics Vital Signs (24Hr): Vital Signs - 24 hr 03/04/21 15:21 03/04/21 17:36 03/04/21 20:28 Temperature 98.0 F Pulse Rate 83 75 76 Respiratory Rate 14 Blood Pressure 125/69 129/70 Pulse Oximetry 97 03/04/21 20:30 03/05/21 06:00 Temperature 97.9 F 98.4 F Pulse Rate 76 78 Respiratory Rate 18 Blood Pressure 129/70 128/78 Pulse Oximetry 97 98 Body Mass Index 0.2 Labs Results: 02/27/21 09:02 02/27/21 09:02 Medications Medications Current Medications Generic Name Dose Route Start Last Admin Trade Name Marcoq PRN Reason Stop Dose Admin Acetaminophen 650 mg 02/27/21 19:42 03/04/21 13:18 Acetaminophen 325 Mg Tablet PO 650 mg Q6H PRN Administration Headache/Pain Mild Scale (1-3) Al Hydroxide/Mg Hydroxide 30 ml 02/27/21 19:42 03/01/21 21:16 Magnesium Hydrox/Alum Hydrox 30 Ml Oral.Susp PO 30 ml Q6H PRN Administration Heartburn/Nausea Albuterol Sulfate 2 puff 02/27/21 19:42 03/03/21 18:20 Albuterol Sulfate 90 Mcg 8 Gm Inhaler INHALE 2 puff Q4H PRN Administration Shortness Of Breath Amlodipine Besylate 10 mg 02/28/21 09:00 03/05/21 08:10 Amlodipine Besylate 10 Mg Tablet PO 10 mg DAILY ÁLVARO Administration Protocol Ascorbic Acid 1,000 mg 02/28/21 09:00 03/05/21 08:09 Ascorbic Acid 500 Mg Tablet PO 1,000 mg DAILY ÁLVARO Administration Azithromycin 250 mg 02/27/21 19:42 03/04/21 03:53 Azithromycin 250 Mg Tablet PO Not Given MOWEFR ÁLVARO Dicyclomine HCl 30 mg 02/28/21 13:00 03/05/21 08:09 Dicyclomine Hcl 10 Mg Capsule PO 30 mg TID ÁLVARO Administration Divalproex Sodium 125 mg 02/28/21 15:00 03/05/21 08:09 Divalproex Sodium Sprinkles 125 Mg CapSpr PO 125 mg TID ÁLVARO Administration Famotidine 40 mg 02/27/21 21:00 03/04/21 20:27 Famotidine 20 Mg Tablet PO 40 mg BEDTIME ÁLVARO Administration Fluticasone/Vilanterol 1 puff 02/28/21 08:00 03/05/21 08:14 Fluticasone/Vilanterol 200/25 Blst.W.Dev INHALE 1 puff RDAILY ÁLVARO Administration Levalbuterol HCl 1.25 mg 02/27/21 19:58 03/04/21 15:21 Levalbuterol Hcl 1.25 Mg/0.5 Ml Vial.Neb INHALE 1.25 mg Q4H PRN Administration Shortness Of Breath Or Wheezing Lorazepam 0.5 mg 03/02/21 14:00 03/05/21 13:09 Lorazepam 0.5 Mg Tablet PO 0.5 mg QID ÁLVARO Administration Magnesium Hydroxide 30 ml 02/27/21 19:42 Milk Of Magnesia 30 Ml Oral.Susp PO DAILY PRN Constipation Multivitamins/Vitamin C 1 tab 02/28/21 09:00 03/05/21 08:12 Multivitamin Tablet PO 1 tab DAILY ÁLVARO Administration Nicotine Polacrilex 4 mg 02/27/21 19:42 Nicotine Polacrilex 2 Mg Gum BUCCAL Q2H PRN Nicotine Cravings Olanzapine 2.5 mg 02/28/21 21:00 03/04/21 20:28 Olanzapine 2.5 Mg Tablet PO 2.5 mg BEDTIME ÁLVARO Administration Propranolol HCl 10 mg 02/27/21 21:00 03/05/21 08:09 Propranolol Hcl 10 Mg Tablet PO 10 mg TID ÁLVARO Administration Protocol Tiotropium [place] 2 puff 02/28/21 08:00 03/05/21 08:17 Tiotropium [place] 18 Mcg Cap.W.Dev INHALE 2 puff RDAILY ÁLVARO Administration Vitamin D 50 mcg 02/28/21 09:00 03/05/21 08:10 Cholecalciferol (Vitamin D3) 25 Mcg Tablet PO 50 mcg DAILY ÁLVARO Administration Allergies Allergies Allergy/AdvReac Type Severity Reaction Status Date / Time lamotrigine [From LAMICTAL] Allergy Severe agitation Verified 02/23/21 16:08 and anxiety with titration codeine [CODEINE] Allergy Intermediate INSOMNIA Verified 02/23/21 16:08 Penicillins [PENICILLINS] Allergy Intermediate RASH Verified 02/23/21 16:08 epinephrine [EPINEPHRINE] AdvReac Intermediate Hypertensio Verified 02/23/21 16:08 n escitalopram [From LEXAPRO] AdvReac Intermediate NIGHTMARES Verified 02/23/21 16:08 sertraline [From ZOLOFT] AdvReac Intermediate NIGHTMARES Verified 02/23/21 16:08 sulfamethoxazole AdvReac Intermediate STOMACH Verified 02/23/21 16:08 [From BACTRIM] UPSET Assessment & Plan Assessment & Plan (1) Preoperative cardiovascular examination: Status: Acute Code(s): Z01.810 - Encounter for preprocedural cardiovascular examination (2) CAD (coronary artery disease): Status: Acute Code(s): I25.10 - Atherosclerotic heart disease of [place] coronary artery without angina pectoris (3) Confusion with nonfocal neurological examination: Status: Acute Code(s): R41.0 - Disorientation, unspecified (4) Generalized anxiety disorder: Status: Acute Code(s): F41.1 - Generalized anxiety disorder (5) 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 Cardiology cleared 03/02. ECT planned Saturday. Greater than 50% of the session was spent on counseling and/or coordination of care Reason for contiued inpatient stay Substantial Risk for: inability to function
[2021-03-05 17:27] VITALS: PULSE 78; O2SAT 95
[2021-03-05 17:50] VITALS: BP 122/76; PULSE 68; TEMP 37.1; O2SAT 99
[2021-03-05] MEDS: Magnesium Hydrox/Alum Hydrox 30 ML ORAL.SUSP PO (20:56)
[2021-03-05] MEDS: Famotidine 20 MG TABLET 40 MG PO (20:57)
[2021-03-05] MEDS: OLANZapine 2.5 MG TABLET PO (20:58)
[2021-03-06] VITALS (16 sets, daily range): BP systolic 91–172; BP diastolic 53–98; PULSE 60–89; RESP 16–17; TEMP 36.7–37.2; O2SAT 90–100
--- NOTE | 2021-03-06 07:04 | MHC.SHP ---
Pre-Procedural Eval Section A The patient is an INPATIENT: Yes Changes since office visit: No Cold of Flu in the past 2 weeks, No New Medical Problems, No Changes in Medication and No Patient answered all questions The History & Physical has been completed within 30 days and I have reviewed it.: Yes Section B Chief Complaint: Depression Details of Present Illness: The patient had been depressed for several weeks, very anxious that has failed for several medication trails. Relevant Family History (Specify if Yes): No Relevant Social History: None Present Medications: None Medical History: No relevant PMH Allergies: Allergies Allergy/AdvReac Type Severity Reaction Status Date / Time lamotrigine [From LAMICTAL] Allergy Severe agitation Verified 02/23/21 16:08 and anxiety with titration codeine [CODEINE] Allergy Intermediate INSOMNIA Verified 02/23/21 16:08 Penicillins [PENICILLINS] Allergy Intermediate RASH Verified 02/23/21 16:08 epinephrine [EPINEPHRINE] AdvReac Intermediate Hypertensio Verified 02/23/21 16:08 n escitalopram [From LEXAPRO] AdvReac Intermediate NIGHTMARES Verified 02/23/21 16:08 sertraline [From ZOLOFT] AdvReac Intermediate NIGHTMARES Verified 02/23/21 16:08 sulfamethoxazole AdvReac Intermediate STOMACH Verified 02/23/21 16:08 [From BACTRIM] UPSET Review of Systems Sugical H&P ROS: Negative: Constitution, Cardiovascular, Respiratory, Neurological, Psychiatric, Hem-Onc, Allergic/Immunologic, Gastrointestinal, Genitourinary, Musculoskeletal, Integumentary, Endocrine and Eyes/Ears/Nose/Throat Exam Surgical H&P Exam: Normal: HEENT, Normal: Heart, Normal: Lungs, Normal: Extremities, Normal: Abdomen, Normal: Skin and Normal: Neurological Plan Diagnosis/Plan: Unchanged I have reviewed the history and physical and performed a pertinent physical examination on my patient. No changes have occurred unless specified.
--- NOTE | 2021-03-06 07:05 | HO.ECTPROC ---
ECT Procedure Note Diagnosis/Treatment Date of Service: 03/06/21 Diagnosis: Major Depressive Disorder Current Treatment Number: 1 Treatment: Series Interval Clinical Notes: The patient has been depressed with little response to medications. He is willing to give a trial of ECT to target dysphoria ECT Settings Device: THYMATRON DGx Electrode Placement: Right Unilateral Program/Pulse Width: 0.50 Energy Percent: 100 Seizure Duration By EEG (in seconds): 36 By Motor Observation (in seconds): 32 Medications Administration General Anesthetic: Etomidate (12) Muscle Relaxant: Succinylcholine (18) Ancillary Medications Analgesics: Torodol - Pre ECT Anti-emetics: Zofran - Pre ECT Miscillaneous Medications: Propofol Airway Management Airway Management: Bag Mask Ventilation Treatment Recommendations No Changes Recommended: No change Pt Tolerated Procedure w/o Issue: Yes
[2021-03-06] MEDS: LORazepam 2 MG/ML VIAL 0.5 MG IVPUSH (08:07)
[2021-03-06] MEDS: LORazepam 2 MG/ML VIAL 1 MG IVPUSH (08:23)
[2021-03-06] MEDS: Albuterol Sulfate 90 MCG 8 GM INHALER 2 PUFF INHALE (10:24)
[2021-03-06] MEDS: Fluticasone/Vilanterol 200/25 BLST.W.DEV 1 PUFF INHALE (10:24)
[2021-03-06] MEDS: Cholecalciferol (Vitamin D3) 25 MCG TABLET 50 MCG PO (10:29)
[2021-03-06] MEDS: amLODIPine Besylate 10 MG TABLET PO (10:29)
[2021-03-06] MEDS: Propranolol HCL 10 MG TABLET PO ×2 (10:31→16:23)
[2021-03-06] MEDS: Ascorbic Acid 500 MG TABLET 1000 MG PO (10:31)
[2021-03-06] MEDS: Divalproex Sodium Sprinkles 125 MG CAP.DR.SPR PO ×3 (10:32→22:37)
[2021-03-06] MEDS: Multivitamin TABLET 1 TAB PO (10:32)
[2021-03-06] MEDS: LORazepam 0.5 MG TABLET PO ×3 (10:33→19:14)
[2021-03-06 11:03] LABS: Valproate 24.9 mcg/mL (50.0-100.0)
[2021-03-06] MEDS: Dicyclomine HCl 10 MG CAPSULE 30 MG PO ×3 (11:20→22:37)
[2021-03-06] MEDS: ALPRAZolam 0.25 MG TABLET PO ×3 (14:11→22:37)
--- NOTE | 2021-03-06 20:45 | P.PNPSI_ITS ---
Subjective Subjective Date of Service: 03/06/21 Reason For Visit: Depression Subjective Notes: Conditional Voluntary Medical Problems Affecting Mental Status: Yes Interim History: pt has been depressed anxious had given consent to ect dr naveen stallings Medication Compliance: Yes Attending Groups: Intermittent Mental Status Exam Mental Status Exam Narrative: The pt Sad looking irritable depressed and withdrawn He is anxious hopeless helpless poverty of content thoughts intermittently that he would be better off denies any active plan or intent. Some difficulty processing information preoccupied with whether he will ever be better no hallucinations impulse control intact in this setting Diagnostics Vital Signs (24Hr): Vital Signs - 24 hr 03/06/21 06:07 03/06/21 06:37 03/06/21 06:51 Temperature 98.9 F 98.9 F 98.2 F Pulse Rate 68 68 80 Respiratory Rate 16 16 17 Blood Pressure 121/58 L 121/58 L 120/79 Pulse Oximetry 95 95 99 03/06/21 07:52 03/06/21 07:57 03/06/21 08:02 Temperature 98.1 F Pulse Rate 73 80 89 Respiratory Rate 16 17 16 Blood Pressure 163/77 H 172/79 H 160/95 H Pulse Oximetry 99 100 100 03/06/21 08:07 03/06/21 08:22 03/06/21 08:37 Temperature 98.1 F Pulse Rate 88 82 79 Respiratory Rate 17 17 16 Blood Pressure 157/98 H 166/88 H 150/81 H Pulse Oximetry 100 100 99 03/06/21 09:18 03/06/21 10:29 03/06/21 10:31 Temperature 98.2 F Pulse Rate 72 86 86 Respiratory Rate 16 Blood Pressure 108/57 L 113/70 113/70 Pulse Oximetry 90 L 03/06/21 14:47 03/06/21 16:23 03/06/21 18:00 Temperature Pulse Rate 72 78 73 Respiratory Rate Blood Pressure 118/72 91/56 L Pulse Oximetry 95 Body Mass Index 0.2 Labs Results: 02/27/21 09:02 02/27/21 09:02 Labs: Laboratory Results - last 48 hr 03/06/21 10:22 Valproic Acid 24.9 L Medications Medications Current Medications Generic Name Dose Route Start Last Admin Trade Name Freq PRN Reason Stop Dose Admin Acetaminophen 650 mg 02/27/21 19:42 03/04/21 13:18 Acetaminophen 325 Mg Tablet PO 650 mg Q6H PRN Administration Headache/Pain Mild Scale (1-3) Al Hydroxide/Mg Hydroxide 30 ml 02/27/21 19:42 03/05/21 20:56 Magnesium Hydrox/Alum Hydrox 30 Ml Oral.Susp PO 30 ml Q6H PRN Administration Heartburn/Nausea Albuterol Sulfate 2 puff 02/27/21 19:42 03/06/21 10:24 Albuterol Sulfate 90 Mcg 8 Gm Inhaler INHALE 2 puff Q4H PRN Administration Shortness Of Breath Amlodipine Besylate 10 mg 02/28/21 09:00 03/06/21 10:29 Amlodipine Besylate 10 Mg Tablet PO 10 mg DAILY ÁLVARO Administration Protocol Ascorbic Acid 1,000 mg 02/28/21 09:00 03/06/21 10:31 Ascorbic Acid 500 Mg Tablet PO 1,000 mg DAILY ÁLVARO Administration Dicyclomine HCl 30 mg 02/28/21 13:00 03/06/21 16:23 Dicyclomine Hcl 10 Mg Capsule PO 30 mg TID ÁLVARO Administration Divalproex Sodium 125 mg 02/28/21 15:00 03/06/21 16:23 Divalproex Sodium Sprinkles 125 Mg Cap.Dr.Spr PO 125 mg TID ÁLVARO Administration Famotidine 40 mg 02/27/21 21:00 03/05/21 20:57 Famotidine 20 Mg Tablet PO 40 mg BEDTIME ÁLVARO Administration Fluticasone/Vilanterol 1 puff 02/28/21 08:00 03/06/21 10:24 Fluticasone/Vilanterol 200/25 Blst.W.Dev INHALE 1 puff RDAILY ÁLVARO Administration Lorazepam 0.5 mg 03/02/21 14:00 03/06/21 13:14 Lorazepam 0.5 Mg Tablet PO 0.5 mg QID ÁLVARO Administration Lorazepam 0.5 mg 03/05/21 14:43 03/06/21 19:14 Lorazepam 0.5 Mg Tablet PO 0.5 mg BID PRN Administration severe anxiety Magnesium Hydroxide 30 ml 02/27/21 19:42 Milk Of Magnesia 30 Ml Oral.Susp PO DAILY PRN Constipation Multivitamins/Vitamin C 1 tab 02/28/21 09:00 03/06/21 10:32 Multivitamin Tablet PO 1 tab DAILY ÁLVARO Administration Nicotine Polacrilex 4 mg 02/27/21 19:42 Nicotine Polacrilex 2 Mg Gum BUCCAL Q2H PRN Nicotine Cravings Olanzapine 2.5 mg 02/28/21 21:00 03/05/21 20:58 Olanzapine 2.5 Mg Tablet PO 2.5 mg BEDTIME ÁLVARO Administration Propranolol HCl 10 mg 02/27/21 21:00 03/06/21 16:23 Propranolol Hcl 10 Mg Tablet PO 10 mg TID ÁLVARO Administration Protocol Tiotropium [place] 2 puff 02/28/21 08:00 03/06/21 10:24 Tiotropium [place] 18 Mcg Cap.W.Dev INHALE 2 puff RDAILY ÁLVARO Administration Vitamin D 50 mcg 02/28/21 09:00 03/06/21 10:29 Cholecalciferol (Vitamin D3) 25 Mcg Tablet PO 50 mcg DAILY ÁLVARO Administration Allergies Allergies Allergy/AdvReac Type Severity Reaction Status Date / Time lamotrigine [From LAMICTAL] Allergy Severe agitation Verified 02/23/21 16:08 and anxiety with titration codeine [CODEINE] Allergy Intermediate INSOMNIA Verified 02/23/21 16:08 Penicillins [PENICILLINS] Allergy Intermediate RASH Verified 02/23/21 16:08 epinephrine [EPINEPHRINE] AdvReac Intermediate Hypertensio Verified 02/23/21 16:08 n escitalopram [From LEXAPRO] AdvReac Intermediate NIGHTMARES Verified 02/23/21 16:08 sertraline [From ZOLOFT] AdvReac Intermediate NIGHTMARES Verified 02/23/21 16:08 sulfamethoxazole AdvReac Intermediate STOMACH Verified 02/23/21 16:08 [From BACTRIM] UPSET Assessment & Plan Assessment & Plan (1) Preoperative cardiovascular examination: Status: Acute Code(s): Z01.810 - Encounter for preprocedural cardiovascular examination (2) CAD (coronary artery disease): Status: Acute Code(s): I25.10 - Atherosclerotic heart disease of [place] coronary artery without angina pectoris (3) Confusion with nonfocal neurological examination: Status: Acute Code(s): R41.0 - Disorientation, unspecified (4) Generalized anxiety disorder: Status: Acute Code(s): F41.1 - Generalized anxiety disorder (5) 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: Status: Acute Code(s): F40.01 - Agoraphobia with panic disorder (6) Major depressive disorder, recurrent episode, severe with anxious distress: Status: Acute Code(s): F33.2 - Major depressive disorder, recurrent severe without psychotic features Assessment and Plan: ect started Patient is hopeless helpless despondent has failed multiple trials of medication no self-harming thoughts in this setting but severely ruminating poverty of content cont ect not stable for outpt tx change to alprazolam from ativan not helpful Greater than 50% of the session was spent on counseling and/or coordination of care Reason for contiued inpatient stay Substantial Risk for: inability to function, rapid decompensation and med/psych decompensation
[2021-03-06] MEDS: Famotidine 20 MG TABLET 40 MG PO (22:37)
[2021-03-06] MEDS: OLANZapine 2.5 MG TABLET PO (22:37)
[2021-03-07] VITALS (8 sets, daily range): BP systolic 100–142; BP diastolic 54–85; PULSE 67–101; RESP 14–16; TEMP 35.8–36.8; O2SAT 94–96
[2021-03-07] MEDS: Fluticasone/Vilanterol 200/25 BLST.W.DEV 1 PUFF INHALE (09:36)
[2021-03-07] MEDS: Albuterol Sulfate 90 MCG 8 GM INHALER 2 PUFF INHALE ×2 (09:36→12:39)
[2021-03-07] MEDS: LORazepam 0.5 MG TABLET PO ×5 (09:37→20:26)
[2021-03-07] MEDS: Cholecalciferol (Vitamin D3) 25 MCG TABLET 50 MCG PO (09:37)
[2021-03-07] MEDS: Ascorbic Acid 500 MG TABLET 1000 MG PO (09:38)
[2021-03-07] MEDS: Dicyclomine HCl 10 MG CAPSULE 30 MG PO ×3 (09:38→20:25)
[2021-03-07] MEDS: Divalproex Sodium Sprinkles 125 MG CAP.DR.SPR PO ×3 (09:38→20:26)
[2021-03-07] MEDS: Multivitamin TABLET 1 TAB PO (09:38)
[2021-03-07] MEDS: Propranolol HCL 10 MG TABLET PO ×2 (14:05→20:25)
[2021-03-07] MEDS: ALPRAZolam 0.25 MG TABLET PO (18:56)
[2021-03-07] MEDS: OLANZapine 2.5 MG TABLET PO (20:25)
[2021-03-07] MEDS: Famotidine 20 MG TABLET 40 MG PO (20:25)
[2021-03-07] MEDS: Magnesium Hydrox/Alum Hydrox 30 ML ORAL.SUSP PO (20:26)
--- NOTE | 2021-03-07 21:47 | HO.PSYCHPN ---
Subjective Subjective Date of Service: 03/08/21 Reason For Visit: Depression Subjective Notes: Conditional Voluntary Guardianship: No Medical Problems Affecting Mental Status: Yes Interim History: Patient with severe anxiety and dysphoria. Seen extensively with his partner. Despondent at times hopeless helpless with periods of thought he would be better off feeling like a burden. Patient has difficulty expressing his feeling states. Able to discuss difficulty with outpatient treatment and patient's fears causing multiple discontinuations. Patient blunted fearful depressed. Agreeable to ECT. Patient blunted severely depressed difficulty to engagehopeless helpless Medication Compliance: Intermittent Mental Status Exam Mental Status Exam Narrative: The pt Sad looking irritable depressed and withdrawn He is anxious hopeless helpless poverty of content thoughts intermittently that he would be better off denies any active plan or intent. Some difficulty processing information preoccupied with whether he will ever be better no hallucinations impulse control intact in this setting Diagnostics Vital Signs (24Hr): Vital Signs - 24 hr 03/06/21 22:41 03/07/21 06:00 03/07/21 08:42 Temperature 97.8 F 96.5 F L Pulse Rate 60 67 82 Respiratory Rate 14 16 Blood Pressure 91/53 L 102/57 L 100/54 L Pulse Oximetry 94 96 03/07/21 11:12 03/07/21 11:13 03/07/21 12:09 Temperature 96.6 F L Pulse Rate 82 82 101 H Respiratory Rate 16 Blood Pressure 100/54 L 100/54 L 133/62 Pulse Oximetry 95 03/07/21 14:05 03/07/21 20:25 Temperature Pulse Rate 101 H 85 Respiratory Rate Blood Pressure 142/73 H 120/85 Pulse Oximetry Body Mass Index 0.2 Labs Results: 02/27/21 09:02 02/27/21 09:02 Labs: Laboratory Results - last 48 hr 03/06/21 10:22 Valproic Acid 24.9 L Medications Medications Current Medications Generic Name Dose Route Start Last Admin Trade Name Freq PRN Reason Stop Dose Admin Acetaminophen 650 mg 02/27/21 19:42 03/04/21 13:18 Acetaminophen 325 Mg Tablet PO 650 mg Q6H PRN Administration Headache/Pain Mild Scale (1-3) Al Hydroxide/Mg Hydroxide 30 ml 02/27/21 19:42 03/07/21 20:26 Magnesium Hydrox/Alum Hydrox 30 Ml Oral.Susp PO 30 ml Q6H PRN Administration Heartburn/Nausea Albuterol Sulfate 2 puff 02/27/21 19:42 03/07/21 12:39 Albuterol Sulfate 90 Mcg 8 Gm Inhaler INHALE 2 puff Q4H PRN Administration Shortness Of Breath Alprazolam 0.25 mg 03/06/21 20:44 03/07/21 18:56 Alprazolam 0.25 Mg Tablet PO 0.25 mg BID PRN Administration anxiety/restlessness Amlodipine Besylate 10 mg 02/28/21 09:00 03/07/21 11:12 Amlodipine Besylate 10 Mg Tablet PO Not Given DAILY [facility] Protocol Ascorbic Acid 1,000 mg 02/28/21 09:00 03/07/21 09:38 Ascorbic Acid 500 Mg Tablet PO 1,000 mg DAILY ÁLVARO Administration Dicyclomine HCl 30 mg 02/28/21 13:00 03/07/21 20:25 Dicyclomine Hcl 10 Mg Capsule PO 30 mg TID ÁLVARO Administration Divalproex Sodium 125 mg 02/28/21 15:00 03/07/21 20:26 Divalproex Sodium Sprinkles 125 Mg Cap.Dr.Spr PO 125 mg TID ÁLVARO Administration Famotidine 40 mg 02/27/21 21:00 03/07/21 20:25 Famotidine 20 Mg Tablet PO 40 mg BEDTIME ÁLVARO Administration Fluticasone/Vilanterol 1 puff 02/28/21 08:00 03/07/21 09:36 Fluticasone/Vilanterol 200/25 Blst.W.Dev INHALE 1 puff RDAILY ÁLVARO Administration Lorazepam 0.5 mg 03/07/21 09:30 03/07/21 20:26 Lorazepam 0.5 Mg Tablet PO 0.5 mg QID ÁLVARO Administration Magnesium Hydroxide 30 ml 02/27/21 19:42 Milk Of Magnesia 30 Ml Oral.Susp PO DAILY PRN Constipation Multivitamins/Vitamin C 1 tab 02/28/21 09:00 03/07/21 09:38 Multivitamin Tablet PO 1 tab DAILY ÁLVARO Administration Nicotine Polacrilex 4 mg 02/27/21 19:42 Nicotine Polacrilex 2 Mg Gum BUCCAL Q2H PRN Nicotine Cravings Olanzapine 2.5 mg 02/28/21 21:00 03/07/21 20:25 Olanzapine 2.5 Mg Tablet PO 2.5 mg BEDTIME ÁLVARO Administration Propranolol HCl 10 mg 02/27/21 21:00 03/07/21 20:25 Propranolol Hcl 10 Mg Tablet PO 10 mg TID ÁLVARO Administration Protocol Tiotropium [place] 2 puff 02/28/21 08:00 03/07/21 09:36 Tiotropium [place] 18 Mcg Cap.W.Dev INHALE 2 puff RDAILY ÁLVARO Administration Vitamin D 50 mcg 02/28/21 09:00 03/07/21 09:37 Cholecalciferol (Vitamin D3) 25 Mcg Tablet PO 50 mcg DAILY ÁLVARO Administration Allergies Allergies Allergy/AdvReac Type Severity Reaction Status Date / Time lamotrigine [From LAMICTAL] Allergy Severe agitation Verified 02/23/21 16:08 and anxiety with titration codeine [CODEINE] Allergy Intermediate INSOMNIA Verified 02/23/21 16:08 Penicillins [PENICILLINS] Allergy Intermediate RASH Verified 02/23/21 16:08 epinephrine [EPINEPHRINE] AdvReac Intermediate Hypertensio Verified 02/23/21 16:08 n escitalopram [From LEXAPRO] AdvReac Intermediate NIGHTMARES Verified 02/23/21 16:08 sertraline [From ZOLOFT] AdvReac Intermediate [place]IGHT[place]ES Verified 02/23/21 16:08 sulfamethoxazole AdvReac Intermediate STOMACH Verified 02/23/21 16:08 [From BACTRIM] UPSET Assessment & Plan Assessment & Plan (1) Preoperative cardiovascular examination: Status: Acute Code(s): Z01.810 - Encounter for preprocedural cardiovascular examination (2) CAD (coronary artery disease): Status: Acute Code(s): I25.10 - Atherosclerotic heart disease of [place] coronary artery without angina pectoris (3) Confusion with nonfocal neurological examination: Status: Acute Code(s): R41.0 - Disorientation, unspecified (4) Generalized anxiety disorder: Status: Acute Code(s): F41.1 - Generalized anxiety disorder (5) 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: Status: Acute Code(s): F40.01 - Agoraphobia with panic disorder (6) Major depressive disorder, recurrent episode, severe with anxious distress: Status: Acute Code(s): F33.2 - Major depressive disorder, recurrent severe without psychotic features Assessment and Plan: ect started Patient is hopeless helpless despondent has failed multiple trials of medication no self-harming thoughts in this setting but severely ruminating poverty of content cont ect not stable for outpt tx change to alprazolam from ativan not helpful Greater than 50% of the session was spent on counseling and/or coordination of care Reason for contiued inpatient stay Substantial Risk for: rapid decompensation and med/psych decompensation
[2021-03-08] VITALS (11 sets, daily range): BP systolic 113–180; BP diastolic 60–97; PULSE 79–115; RESP 16–18; TEMP 36.2–37.4; O2SAT 94–99; BMI 28.1
[2021-03-08] MEDS: Albuterol Sulfate 90 MCG 8 GM INHALER 2 PUFF INHALE (06:03)
[2021-03-08] MEDS: Fluticasone/Vilanterol 200/25 BLST.W.DEV 1 PUFF INHALE (10:21)
[2021-03-08] MEDS: LORazepam 0.5 MG TABLET PO ×3 (10:21→21:06)
--- NOTE | 2021-03-08 13:30 | MHC.SHP ---
Pre-Procedural Eval Section A The patient is an INPATIENT: Yes Changes since office visit: Yes Changes in Medication and Yes Patient answered all questions; No Cold of Flu in the past 2 weeks and No New Medical Problems The History & Physical has been completed within 30 days and I have reviewed it.: Yes Section B Chief Complaint: Depression Allergies: Allergies Allergy/AdvReac Type Severity Reaction Status Date / Time lamotrigine [From LAMICTAL] Allergy Severe agitation Verified 02/23/21 16:08 and anxiety with titration codeine [CODEINE] Allergy Intermediate INSOMNIA Verified 02/23/21 16:08 Penicillins [PENICILLINS] Allergy Intermediate RASH Verified 02/23/21 16:08 epinephrine [EPINEPHRINE] AdvReac Intermediate Hypertensio Verified 02/23/21 16:08 n escitalopram [From LEXAPRO] AdvReac Intermediate NIGHTMARES Verified 02/23/21 16:08 sertraline [From ZOLOFT] AdvReac Intermediate [place] Verified 02/23/21 16:08 sulfamethoxazole AdvReac Intermediate STOMACH Verified 02/23/21 16:08 [From BACTRIM] UPSET Plan I have reviewed the history and physical and performed a pertinent physical examination on my patient. No changes have occurred unless specified.
--- NOTE | 2021-03-08 13:36 | P.CONAN_ITS ---
HPI - Anesthesia Eval Consult details Narrative: Major depression [facility] Active Problems Active Problems: All Active Problems (Updated 03/02/21 @ 09:13 by Servando Puga MD) Preoperative cardiovascular examination (Acute) Confusion with nonfocal neurological examination (Acute) Generalized anxiety disorder (Acute) 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 (Acute) Pneumonitis (Acute) Major depressive disorder, recurrent episode, severe with anxious distress (Acute) Pre-op evaluation (Acute) Chronic respiratory failure (Acute) COPD (chronic obstructive pulmonary disease) (Acute) Preop cardiovascular exam (Acute) Depression (Acute) Smoking (Acute) HLD (hyperlipidemia) (Acute) Stented coronary artery (Acute) CAD (coronary artery disease) (Acute) Abnormal nuclear stress test (Acute) Past Medical History Medical History Abnormal nuclear stress test CAD (coronary artery disease) Chronic respiratory failure COPD (chronic obstructive pulmonary disease) Depression Generalized anxiety disorder HLD (hyperlipidemia) Major depressive disorder, recurrent episode, severe with anxious distress Pneumonitis Pre-op evaluation Preop cardiovascular exam Smoking Family History Family History Father No problems noted. Mother No problems noted. Surgical History Surgical History Stented coronary artery Social History Social History Household Members: Unknown / Unable to assess Housing: House Do you presently have visiting nurse or other home services: No Unable to assess alcohol history related to: Unknown Alcohol intake: never Patient Tobacco Use Status: Former Tobacco user Quit Date: 3 months ago Tobacco use type: Cigarette Years Smoked: 40 Smoked in Last 30 Days: No e-Cigarette/Vaping Use: Former Use Patient Interested in Nicotine Replacement: No Patient Given Instructions on How to Stop Smoking: No Second Hand Smoke Exposure: No Use of substances other than those prescribed or required for medical reasons: Unknown Currently Displaying Signs/Symptoms of Drug Intoxication Withdrawal: No Have you been hit, kicked, punched, or otherwise hurt by someone within the past year? If so, by whom?: No Do you feel safe in your current relationship?: No Is there a partner from a previous relationship who is making you feel unsafe now?: No Are you made to feel afraid or neglected: No Are you DNR?: No Advance Directives: No Advance Directives Information Provided: No Advance Directives on File: No Do you have thoughts of harming others: None Do you have a plan to hurt others: No Plan Recently lost weight without trying: Unsure Nutrition Risks: No Nutritional Risk Poor oral hygiene: No service: No Sexual orientation: Lesbian/Triana/Homosexual Meds Allergies Allergy/AdvReac Type Severity Reaction Status Date / Time lamotrigine [From LAMICTAL] Allergy Severe agitation Verified 02/23/21 16:08 and anxiety with titration codeine [CODEINE] Allergy Intermediate INSOMNIA Verified 02/23/21 16:08 Penicillins [PENICILLINS] Allergy Intermediate RASH Verified 02/23/21 16:08 epinephrine [EPINEPHRINE] AdvReac Intermediate Hypertensio Verified 02/23/21 16:08 n escitalopram [From LEXAPRO] AdvReac Intermediate NIGHTMARES Verified 02/23/21 16:08 sertraline [From ZOLOFT] AdvReac Intermediate NIGHTMARES Verified 02/23/21 16:08 sulfamethoxazole AdvReac Intermediate STOMACH Verified 02/23/21 16:08 [From BACTRIM] UPSET Active Medications: Current Medications Generic Name Dose Route Start Last Admin Trade Name Freq PRN Reason Stop Dose Admin Acetaminophen 650 mg 02/27/21 19:42 03/04/21 13:18 Acetaminophen 325 Mg Tablet PO 650 mg Q6H PRN Administration Headache/Pain Mild Scale (1-3) Al Hydroxide/Mg Hydroxide 30 ml 02/27/21 19:42 03/07/21 20:26 Magnesium Hydrox/Alum Hydrox 30 Ml Oral.Susp PO 30 ml Q6H PRN Administration Heartburn/Nausea Albuterol Sulfate 2 puff 02/27/21 19:42 03/08/21 06:03 Albuterol Sulfate 90 Mcg 8 Gm Inhaler INHALE 2 puff Q4H PRN Administration Shortness Of Breath Amlodipine Besylate 10 mg 02/28/21 09:00 03/07/21 11:12 Amlodipine Besylate 10 Mg Tablet PO Not Given DAILY [facility] Protocol Ascorbic Acid 1,000 mg 02/28/21 09:00 03/07/21 09:38 Ascorbic Acid 500 Mg Tablet PO 1,000 mg DAILY ÁLVARO Administration Dicyclomine HCl 30 mg 02/28/21 13:00 03/07/21 20:25 Dicyclomine Hcl 10 Mg Capsule PO 30 mg TID ÁLVARO Administration Divalproex Sodium 125 mg 02/28/21 15:00 03/07/21 20:26 Divalproex Sodium Sprinkles 125 Mg Cap.Dr[place]intonSpr PO 125 mg TID ÁLVARO Administration Famotidine 40 mg 02/27/21 21:00 03/07/21 20:25 Famotidine 20 Mg Tablet PO 40 mg BEDTIME ÁLVARO Administration Fluticasone/Vilanterol 1 puff 02/28/21 08:00 03/08/21 10:21 Fluticasone/Vilanterol 200/25 Blst.W.Dev INHALE 1 puff RDAILY ÁLVARO Administration Lorazepam 0.5 mg 03/07/21 09:30 03/08/21 10:21 Lorazepam 0.5 Mg Tablet PO 0.5 mg QID ÁLVARO Administration Lorazepam 0.5 mg 03/07/21 21:52 Lorazepam 0.5 Mg Tablet PO BID PRN anxiety/restlessness Magnesium Hydroxide 30 ml 02/27/21 19:42 Milk Of Magnesia 30 Ml Oral.Susp PO DAILY PRN Constipation Multivitamins/Vitamin C 1 tab 02/28/21 09:00 03/07/21 09:38 Multivitamin Tablet PO 1 tab DAILY ÁLVARO Administration Nicotine Polacrilex 4 mg 02/27/21 19:42 Nicotine Polacrilex 2 Mg Gum BUCCAL Q2H PRN Nicotine Cravings Olanzapine 2.5 mg 02/28/21 21:00 03/07/21 20:25 Olanzapine 2.5 Mg Tablet PO 2.5 mg BEDTIME ÁLVARO Administration Propranolol HCl 10 mg 02/27/21 21:00 03/07/21 20:25 Propranolol Hcl 10 Mg Tablet PO 10 mg TID [facility] Administration Protocol Tiotropium [place] 2 puff 02/28/21 08:00 03/07/21 09:36 Tiotropium [place] 18 Mcg Cap.W.Dev INHALE 2 puff RDAILY [facility] Administration Vitamin D 50 mcg 02/28/21 09:00 03/07/21 09:37 Cholecalciferol (Vitamin D3) 25 Mcg Tablet PO 50 mcg DAILY ÁLVARO Administration Home Medications Medication Instructions Recorded Confirmed Last Taken Type Spiriva Respimat 2 puff PO DAILY 07/08/20 02/27/21 02/26/21 History amlodipine 1 tab PO DAILY 07/08/20 02/27/21 02/26/21 History ascorbic acid (vitamin C) 1,000 mg 1,000 mg PO DAILY 07/21/20 02/27/21 02/26/21 History tablet cholecalciferol (vitamin D3) 25 50 mcg PO DAILY cap 07/21/20 02/27/21 02/26/21 History mcg (1,000 unit) capsule famotidine 40 mg PO BEDTIME 02/10/21 02/27/21 02/26/21 History fluticasone propion-salmeterol 1 inh INHALATION BID 02/10/21 02/27/21 02/26/21 History [Advair Diskus] levalbuterol HCl [Xopenex] 1.25 mg INHALATION Q4H PRN 02/10/21 02/27/21 Unknown History propranolol 10 mg PO TID 02/10/21 02/27/21 02/26/21 History azithromycin 250 mg PO MOWEFR 02/27/21 02/27/21 02/26/21 History dicyclomine 10 mg PO TID 02/27/21 02/27/21 02/26/21 History multivitamin 1 tab PO DAILY 02/27/21 02/27/21 02/26/21 History Exam Exam Date and Time: March 08, 2021 1336 Height,Weight and Vital Signs: Height 5 ft 7 in Weight 81.647 kg Last Vital Signs Temp 97.2 F 03/08/21 13:11 Pulse 93 03/08/21 13:11 Resp 18 03/08/21 13:11 BP 139/96 H 03/08/21 13:11 Pulse Ox 98 03/08/21 13:11 Oxygen Flow Rate 2 02/27/21 07:49 Pertinent Lab Results Pertinent Lab Results: Laboratory Tests 02/27/21 02/27/21 02/27/21 09:02 09:02 09:02 WBC 10.5 RBC 5.65 Hgb 16.8 Hct 50.6 MCV 89.6 MCH 29.7 MCHC 33.2 RDW 12.5 Plt Count 271 MPV 8.7 L Immature Gran % (Auto) 0.4 Neut % (Auto) 64.5 Lymph % (Auto) 23.3 [place] % (Auto) 10.4 Eos % (Auto) 1.0 Baso % (Auto) 0.4 Lymph # (Auto) 2.4 [place] # (Auto) 1.1 Eos # (Auto) 0.1 Baso # (Auto) 0.0 Abs Immat Gran (auto) 0.04 H Absolute Neuts (auto) 6.8 Absolute Nucleated RBC 0.000 Nucleated RBC % (auto) 0.0 Sodium 140 Potassium 3.7 Chloride 102 Carbon Dioxide 28 Anion Gap 14 BUN 16 Creatinine 0.99 Estim Creat Clear Calc 81.3 Estimated GFR > 60 Random Glucose 85 Calcium 10.1 Total Bilirubin 0.9 AST 21 D ALT 25 Alkaline Phosphatase 51 Total Protein 7.8 Albumin 4.9 Urine Opiates Screen Not Detected Ur Barbiturates Screen Not Detected Valproic Acid Ur Phencyclidine Scrn Not Detected Ur Amphetamines Screen Not Detected U Benzodiazepines Scrn POSITIVE H Urine Cocaine Screen Not Detected U Marijuana (THC) Screen Not Detected Ethyl Alcohol COVID-19 ([facility]) COVID-[facility] 02/27/21 02/27/21 03/03/21 09:02 16:46 07:25 WBC RBC Hgb Hct MCV MCH MCHC RDW Plt Count MPV Immature Gran % (Auto) Neut % (Auto) Lymph % (Auto) [place] % (Auto) Eos % (Auto) Baso % (Auto) Lymph # (Auto) [place] # (Auto) Eos # (Auto) Baso # (Auto) Abs Immat Gran (auto) Absolute Neuts (auto) Absolute Nucleated RBC Nucleated RBC % (auto) Sodium Potassium Chloride Carbon Dioxide Anion Gap BUN Creatinine Estim Creat Clear Calc Estimated GFR Random Glucose Calcium Total Bilirubin AST ALT Alkaline Phosphatase Total Protein Albumin Urine Opiates Screen Ur Barbiturates Screen Valproic Acid 25.3 L Ur Phencyclidine Scrn Ur Amphetamines Screen U Benzodiazepines Scrn Urine Cocaine Screen U Marijuana (THC) Screen Ethyl Alcohol < 10 COVID-19 ([facility]) Negative COVID-[facility] See Note 03/06/21 10:22 WBC RBC Hgb Hct MCV MCH MCHC RDW Plt Count MPV Immature Gran % (Auto) Neut % (Auto) Lymph % (Auto) [place] % (Auto) Eos % (Auto) Baso % (Auto) Lymph # (Auto) [place] # (Auto) Eos # (Auto) Baso # (Auto) Abs Immat Gran (auto) Absolute Neuts (auto) Absolute Nucleated RBC Nucleated RBC % (auto) Sodium Potassium Chloride Carbon Dioxide Anion Gap BUN Creatinine Estim Creat Clear Calc Estimated GFR Random Glucose Calcium Total Bilirubin AST ALT Alkaline Phosphatase Total Protein Albumin Urine Opiates Screen Ur Barbiturates Screen Valproic Acid 24.9 L Ur Phencyclidine Scrn Ur Amphetamines Screen U Benzodiazepines Scrn Urine Cocaine Screen U Marijuana (THC) Screen Ethyl Alcohol COVID-19 ([facility]) COVID-19 Clin Com Airway Mallampati Class: III TM Dist: >3cm Neck ROM: Full Heart: [id number] Lungs: cta b/l Assessment and Plan Assessment Anesthesia Assessment: Anesthesia Plan Discussed, PAT Visit and Chart Reviewed Final Anesthetic Review NPO: Yes ASA Class: III Final Preanesthetic Review: No Changes in Pt Med Stat, Meds/Allgs Chart Reviewed, Consent Obtained/Reviewed and Anes Risks/Benef Reviewed Patient Risk: Intermediate Procedure Risk: Low Anesthetic Plan Anesthetic Plan: GA and Agree w/ Assess. and Plan Disposition: Standard PACU
--- NOTE | 2021-03-08 13:38 | HO.ECTPROC ---
ECT Procedure Note Diagnosis/Treatment Date of Service: 03/08/21 Diagnosis: Major Depressive Disorder Previous ECT Date: 03/06/21 Current Treatment Number: 2 Treatment: Series Interval Clinical Notes: Pt depressed anxious ruminating ECT Settings Device: THYMATRON DGx Electrode Placement: Right Unilateral Program/Pulse Width: 0.50 Energy Percent: 100 Seizure Duration By EEG (in seconds): 51 Medications Administration General Anesthetic: Etomidate (12) Muscle Relaxant: Succinylcholine (80) Ancillary Medications Analgesics: Torodol - Pre ECT Anti-emetics: Zofran - Pre ECT Miscillaneous Medications: Propofol (30) and Other (ativan 2 mg ) Airway Management Airway Management: Bag Mask Ventilation Treatment Recommendations No Changes Recommended: No change Notes: consider change to BF which he has had in the past Pt Tolerated Procedure w/o Issue: Yes
[2021-03-08] MEDS: Famotidine 20 MG TABLET 40 MG PO (21:06)
[2021-03-08] MEDS: Dicyclomine HCl 10 MG CAPSULE 30 MG PO (21:06)
[2021-03-08] MEDS: Divalproex Sodium Sprinkles 125 MG CAP.DR.SPR PO (21:07)
[2021-03-08] MEDS: Propranolol HCL 10 MG TABLET PO (21:07)
--- NOTE | 2021-03-08 23:02 | HO.PSYCHPN ---
Subjective Subjective Date of Service: 03/08/21 Reason For Visit: Depression Subjective Notes: Conditional Voluntary Interim History: pt anxious depressed [place] helpless see ect note severe anxiety Medication Compliance: Yes Mental Status Exam Mental Status Exam Narrative: The pt Sad looking irritable depressed and withdrawn He is anxious hopeless helpless poverty of content thoughts intermittently that he would be better off denies any active plan or intent. Some difficulty processing information preoccupied with whether he will ever be better no hallucinations impulse control intact in this setting worsening anxiety depression had to wait for ect Diagnostics Vital Signs (24Hr): Vital Signs - 24 hr 03/08/21 06:00 03/08/21 07:30 03/08/21 13:11 Temperature 97.6 F 97.6 F 97.2 F Pulse Rate 79 79 93 Respiratory Rate 16 16 18 Blood Pressure 128/62 128/62 139/96 H Pulse Oximetry 95 95 98 03/08/21 13:50 03/08/21 13:55 03/08/21 14:00 Temperature 98.5 F Pulse Rate 90 111 H 115 H Respiratory Rate 16 18 18 Blood Pressure 150/60 H 176/89 H 180/96 H Pulse Oximetry 98 99 99 03/08/21 14:05 03/08/21 14:20 03/08/21 14:45 Temperature 99.4 F Pulse Rate 113 H 106 H 110 H Respiratory Rate 18 18 16 Blood Pressure 168/90 H 148/97 H 122/83 Pulse Oximetry 98 96 94 03/08/21 18:00 03/08/21 21:07 Temperature 98.2 F Pulse Rate 100 100 Respiratory Rate 18 Blood Pressure 113/71 113/71 Pulse Oximetry 95 Body Mass Index 28.1 Labs Results: 02/27/21 09:02 02/27/21 09:02 Medications Medications Current Medications Generic Name Dose Route Start Last Admin Trade Name Freq PRN Reason Stop Dose Admin Acetaminophen 650 mg 02/27/21 19:42 03/04/21 13:18 Acetaminophen 325 Mg Tablet PO 650 mg Q6H PRN Administration Headache/Pain Mild Scale (1-3) Acetaminophen 650 mg 03/08/21 13:37 Acetaminophen 325 Mg Tablet PO ONCE PRN Pain, Mild (Pain Scale 1-3) Al Hydroxide/Mg Hydroxide 30 ml 02/27/21 19:42 03/07/21 20:26 Magnesium Hydrox/Alum Hydrox 30 Ml Oral.Susp PO 30 ml Q6H PRN Administration Heartburn/Nausea Albuterol Sulfate 2 puff 02/27/21 19:42 03/08/21 06:03 Albuterol Sulfate 90 Mcg 8 Gm Inhaler INHALE 2 puff Q4H PRN Administration Shortness Of Breath Amlodipine Besylate 10 mg 02/28/21 09:00 03/07/21 11:12 Amlodipine Besylate 10 Mg Tablet PO Not Given DAILY [facility] Protocol Ascorbic Acid 1,000 mg 02/28/21 09:00 03/08/21 16:21 Ascorbic Acid 500 Mg Tablet PO Not Given DAILY ÁLVARO Dicyclomine HCl 30 mg 02/28/21 13:00 03/08/21 21:06 Dicyclomine Hcl 10 Mg Capsule PO 30 mg TID ÁLVARO Administration Divalproex Sodium 125 mg 02/28/21 15:00 03/08/21 21:07 Divalproex Sodium Sprinkles 125 Mg Cap.Dr.Spr PO 125 mg TID ÁLVARO Administration Famotidine 40 mg 02/27/21 21:00 03/08/21 21:06 Famotidine 20 Mg Tablet PO 40 mg BEDTIME ÁLVARO Administration Fluticasone/Vilanterol 1 puff 02/28/21 08:00 03/08/21 10:21 Fluticasone/Vilanterol 200/25 Blst.W.Dev INHALE 1 puff RDAILY ÁLVARO Administration Lorazepam 0.5 mg 03/07/21 09:30 03/08/21 21:06 Lorazepam 0.5 Mg Tablet PO 0.5 mg QID ÁLVARO Administration Lorazepam 0.5 mg 03/07/21 21:52 Lorazepam 0.5 Mg Tablet PO BID PRN anxiety/restlessness Magnesium Hydroxide 30 ml 02/27/21 19:42 Milk Of Magnesia 30 Ml Oral.Susp PO DAILY PRN Constipation Multivitamins/Vitamin C 1 tab 02/28/21 09:00 03/08/21 16:21 Multivitamin Tablet PO Not Given DAILY [facility] Nicotine Polacrilex 4 mg 02/27/21 19:42 Nicotine Polacrilex 2 Mg Gum BUCCAL Q2H PRN Nicotine Cravings Nortriptyline HCl 10 mg 03/09/21 21:00 Nortriptyline Hcl 10 Mg Capsule PO BEDTIME [facility] Olanzapine 2.5 mg 02/28/21 21:00 03/08/21 21:12 Olanzapine 2.5 Mg Tablet PO Not Given BEDTIME [facility] Ondansetron HCl 4 mg 03/08/21 13:37 Ondansetron Hcl 4 Mg/2 Ml Vial IVPUSH ONCE PRN Nausea and Vomiting Propranolol HCl 10 mg 02/27/21 21:00 03/08/21 21:07 Propranolol Hcl 10 Mg Tablet PO 10 mg TID [facility] Administration Protocol Tiotropium [place] 2 puff 02/28/21 08:00 03/08/21 16:20 Tiotropium [place] 18 Mcg Cap.W.Dev INHALE Not Given RDAILY [facility] Vitamin D 50 mcg 02/28/21 09:00 03/08/21 16:21 Cholecalciferol (Vitamin D3) 25 Mcg Tablet PO Not Given DAILY [facility] Allergies Allergies Allergy/AdvReac Type Severity Reaction Status Date / Time lamotrigine [From LAMICTAL] Allergy Severe agitation Verified 02/23/21 16:08 and anxiety with titration codeine [CODEINE] Allergy Intermediate INSOMNIA Verified 02/23/21 16:08 Penicillins [PENICILLINS] Allergy Intermediate RASH Verified 02/23/21 16:08 epinephrine [EPINEPHRINE] AdvReac Intermediate Hypertensio Verified 02/23/21 16:08 n escitalopram [From LEXAPRO] AdvReac Intermediate NIGHTMARES Verified 02/23/21 16:08 sertraline [From ZOLOFT] AdvReac Intermediate NIGHTMARES Verified 02/23/21 16:08 sulfamethoxazole AdvReac Intermediate STOMACH Verified 02/23/21 16:08 [From BACTRIM] UPSET Assessment & Plan Assessment & Plan (1) Preoperative cardiovascular examination: Status: Acute Code(s): Z01.810 - Encounter for preprocedural cardiovascular examination (2) CAD (coronary artery disease): Status: Acute Code(s): I25.10 - Atherosclerotic heart disease of [place] coronary artery without angina pectoris (3) Confusion with nonfocal neurological examination: Status: Acute Code(s): R41.0 - Disorientation, unspecified (4) Generalized anxiety disorder: Status: Acute Code(s): F41.1 - Generalized anxiety disorder (5) 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: Status: Acute Code(s): F40.01 - Agoraphobia with panic disorder (6) Major depressive disorder, recurrent episode, severe with anxious distress: Status: Acute Code(s): F33.2 - Major depressive disorder, recurrent severe without psychotic features Assessment and Plan: ect started Patient is hopeless helpless despondent has failed multiple trials of medication no self-harming thoughts in this setting but severely ruminating poverty of content cont ect not stable for outpt tx change to alprazolam from ativan not helpful start nortriptyline 10 hs Greater than 50% of the session was spent on counseling and/or coordination of care Reason for contiued inpatient stay Substantial Risk for: inability to function, rapid decompensation and med/psych decompensation
[2021-03-09 06:00] VITALS: BP 100/54; PULSE 70; RESP 18; TEMP 36.6; O2SAT 90
[2021-03-09 07:00] VITALS: BMI 27.6
[2021-03-09] MEDS: Ascorbic Acid 500 MG TABLET 1000 MG PO (08:04)
[2021-03-09] MEDS: Dicyclomine HCl 10 MG CAPSULE 30 MG PO ×3 (08:05→20:50)
[2021-03-09] MEDS: Cholecalciferol (Vitamin D3) 25 MCG TABLET 50 MCG PO (08:05)
[2021-03-09] MEDS: Divalproex Sodium Sprinkles 125 MG CAP.DR.SPR PO ×3 (08:06→22:02)
[2021-03-09] MEDS: LORazepam 0.5 MG TABLET PO ×3 (08:06→12:26)
[2021-03-09 08:07] VITALS: BP 132/62; PULSE 96
[2021-03-09] MEDS: Propranolol HCL 10 MG TABLET PO ×3 (08:07→20:54)
[2021-03-09] MEDS: Multivitamin TABLET 1 TAB PO (08:07)
[2021-03-09 08:08] VITALS: BP 132/62; PULSE 96
[2021-03-09] MEDS: Albuterol Sulfate 90 MCG 8 GM INHALER 2 PUFF INHALE ×3 (08:08→17:27)
[2021-03-09] MEDS: amLODIPine Besylate 10 MG TABLET PO (08:08)
[2021-03-09] MEDS: Fluticasone/Vilanterol 200/25 BLST.W.DEV 1 PUFF INHALE (08:09)
[2021-03-09] MEDS: QUEtiapine Fumarate 25 MG TABLET 12.5 MG PO ×2 (14:07→19:29)
[2021-03-09 14:56] VITALS: BP 117/72; PULSE 82
[2021-03-09 18:00] VITALS: BP 120/74; PULSE 90; RESP 16; TEMP 36.7; O2SAT 95
--- NOTE | 2021-03-09 18:22 | PC.NURSE ---
Addendum entered by Rhina Chan LPN 03/09/21 18:35: Pt has a ECT appt on 03/10/21 at between 8am-930am. Ativan d/c patient stated medications is not working for him MD aware. PT is now starting Xanax 0.5 prn and scheduled seroquel 3x a day 0.5 as of 03/09/21 . Pt received prn of his albuterol and Ativan. Pt received his first dose of schedule seroquel today at 207pm client stated he feels that his new medication is working Pt decline to take his Xanax and will continue to monitor Pt Original Note: Pt as a ECT appt on 03/10/21 at 930am. Ativan d/c patient stated medications is not working for him MD aware. PT is now starting Xanax 0.5 prn and scheduled seroquel 3x a day 0.5 as of 03/09/21 . Pt received prn of his albuterol and Ativan. Pt received his first dose of schedule seroquel today at 207pm client stated he feels that his new medication is working Pt decline to take his Xanax and will continue to monitor Pt
[2021-03-09] MEDS: Nortriptyline HCl 10 MG CAPSULE PO (20:53)
[2021-03-09 20:54] VITALS: BP 128/55; PULSE 88
[2021-03-09] MEDS: OLANZapine 2.5 MG TABLET PO (20:57)
[2021-03-09] MEDS: Famotidine 20 MG TABLET 40 MG PO (20:58)
--- NOTE | 2021-03-09 21:44 | HO.PSYCHPN ---
Subjective Subjective Date of Service: 03/09/21 Reason For Visit: Depression Subjective Notes: Conditional Voluntary Interim History: Patient is severely depressed anxious and ruminating obsessional hopeless helpless constantly asking for medication then changing his mind going back and forth had has difficult time processing any information Medication Compliance: Intermittent Mental Status Exam Mental Status Exam Narrative: The pt Sad looking irritable depressed and withdrawn He is anxious hopeless helpless poverty of content thoughts intermittently that he would be better off denies any active plan or intent. Some difficulty processing information preoccupied with whether he will ever be better no hallucinations impulse control intact in this setting worsening anxiety depression patient ruminating patient despairing having difficulty processing information increasingly hopeless helpless and despondent Diagnostics Vital Signs (24Hr): Vital Signs - 24 hr 03/09/21 06:00 03/09/21 08:07 03/09/21 08:08 Temperature 97.8 F Pulse Rate 70 96 96 Respiratory Rate 18 Blood Pressure 100/54 L 132/62 132/62 Pulse Oximetry 90 L 03/09/21 14:56 03/09/21 18:00 03/09/21 20:54 Temperature 98.0 F Pulse Rate 82 90 88 Respiratory Rate 16 Blood Pressure 117/72 120/74 128/55 L Pulse Oximetry 95 Body Mass Index 27.6 Labs Results: 02/27/21 09:02 02/27/21 09:02 Medications Medications Current Medications Generic Name Dose Route Start Last Admin Trade Name Freq PRN Reason Stop Dose Admin Acetaminophen 650 mg 02/27/21 19:42 03/04/21 13:18 Acetaminophen 325 Mg Tablet PO 650 mg Q6H PRN Administration Headache/Pain Mild Scale (1-3) Acetaminophen 650 mg 03/08/21 13:37 Acetaminophen 325 Mg Tablet PO ONCE PRN Pain, Mild (Pain Scale 1-3) Al Hydroxide/Mg Hydroxide 30 ml 02/27/21 19:42 03/07/21 20:26 Magnesium Hydrox/Alum Hydrox 30 Ml Oral.Susp PO 30 ml Q6H PRN Administration Heartburn/Nausea Albuterol Sulfate 2 puff 02/27/21 19:42 03/09/21 17:27 Albuterol Sulfate 90 Mcg 8 Gm Inhaler INHALE 2 puff Q4H PRN Administration Shortness Of Breath Alprazolam 0.5 mg 03/09/21 15:00 03/09/21 16:42 Alprazolam 0.5 Mg Tablet PO Not Given TID ÁLVARO Amlodipine Besylate 10 mg 02/28/21 09:00 03/09/21 08:21 Amlodipine Besylate 10 Mg Tablet PO Not Given DAILY [facility] Protocol Ascorbic Acid 1,000 mg 02/28/21 09:00 03/09/21 08:04 Ascorbic Acid 500 Mg Tablet PO 1,000 mg DAILY Á[facility]ARO Administration Dicyclomine HCl 30 mg 02/28/21 13:00 03/09/21 20:50 Dicyclomine Hcl 10 Mg Capsule PO 30 mg TID ÁLVARO Administration Divalproex Sodium 125 mg 02/28/21 15:00 03/09/21 14:56 Divalproex Sodium Sprinkles 125 Mg Cap.Dr.Spr PO 125 mg TID ÁLVARO Administration Famotidine 40 mg 02/27/21 21:00 03/09/21 20:58 Famotidine 20 Mg Tablet PO 40 mg BEDTIME ÁLVARO Administration Fluticasone/Vilanterol 1 puff 02/28/21 08:00 03/09/21 08:09 Fluticasone/Vilanterol 200/25 Blst.W.Dev INHALE 1 puff RDAILY ÁLVARO Administration Magnesium Hydroxide 30 ml 02/27/21 19:42 Milk Of Magnesia 30 Ml Oral.Susp PO DAILY PRN Constipation Multivitamins/Vitamin C 1 tab 02/28/21 09:00 03/09/21 08:07 Multivitamin Tablet PO 1 tab DAILY [facility]AR[facility] Administration Nicotine Polacrilex 4 mg 02/27/21 19:42 Nicotine Polacrilex 2 Mg Gum BUCCAL Q2H PRN Nicotine Cravings Nortriptyline HCl 10 mg 03/09/21 21:00 03/09/21 20:53 Nortriptyline Hcl 10 Mg Capsule PO 10 mg BEDTIME ÁLVARO Administration Olanzapine 2.5 mg 02/28/21 21:00 03/09/21 20:57 Olanzapine 2.5 Mg Tablet PO 2.5 mg BEDTIME ÁLVARO Administration Ondansetron HCl 4 mg 03/08/21 13:37 Ondansetron Hcl 4 Mg/2 Ml Vial IVPUSH ONCE PRN Nausea and Vomiting Propranolol HCl 10 mg 02/27/21 21:00 03/09/21 20:54 Propranolol Hcl 10 Mg Tablet PO 10 mg TID ÁLVARO Administration Protocol Quetiapine Fumarate 12.5 mg 03/09/21 13:51 03/09/21 19:29 Quetiapine Fumarate 25 Mg Tablet PO 12.5 mg Q4H PRN Administration anxiety/restlessness Tiotropium [place] 2 puff 02/28/21 08:00 03/09/21 08:11 Tiotropium [place] 18 Mcg Cap.W.Dev INHALE 2 puff RDAILY ÁLVARO Administration Vitamin D 50 mcg 02/28/21 09:00 03/09/21 08:05 Cholecalciferol (Vitamin D3) 25 Mcg Tablet PO 50 mcg DAILY ÁLVARO Administration Allergies Allergies Allergy/AdvReac Type Severity Reaction Status Date / Time lamotrigine [From LAMICTAL] Allergy Severe agitation Verified 02/23/21 16:08 and anxiety with titration codeine [CODEINE] Allergy Intermediate INSOMNIA Verified 02/23/21 16:08 Penicillins [PENICILLINS] Allergy Intermediate RASH Verified 02/23/21 16:08 epinephrine [EPINEPHRINE] AdvReac Intermediate Hypertensio Verified 02/23/21 16:08 n escitalopram [From LEXAPRO] AdvReac Intermediate NIGHTMARES Verified 02/23/21 16:08 sertraline [From ZOLOFT] AdvReac Intermediate [place]IGHT[place]ES Verified 02/23/21 16:08 sulfamethoxazole AdvReac Intermediate STOMACH Verified 02/23/21 16:08 [From BACTRIM] UPSET Assessment & Plan Assessment & Plan (1) Preoperative cardiovascular examination: Status: Acute Code(s): Z01.810 - Encounter for preprocedural cardiovascular examination (2) CAD (coronary artery disease): Status: Acute Code(s): I25.10 - Atherosclerotic heart disease of [place] coronary artery without angina pectoris (3) Confusion with nonfocal neurological examination: Status: Acute Code(s): R41.0 - Disorientation, unspecified (4) Generalized anxiety disorder: Status: Acute Code(s): F41.1 - Generalized anxiety disorder (5) 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: Status: Acute Code(s): F40.01 - Agoraphobia with panic disorder (6) Major depressive disorder, recurrent episode, severe with anxious distress: Status: Acute Code(s): F33.2 - Major depressive disorder, recurrent severe without psychotic features Assessment and Plan: ect started Patient is hopeless helpless despondent has failed multiple trials of medication no self-harming thoughts in this setting but severely ruminating poverty of content cont ect not stable for outpt tx change to alprazolam from ativan not helpful start nortriptyline 10 hs continue ECT Seroquel started secondary to severe anxiety Greater than 50% of the session was spent on counseling and/or coordination of care Reason for contiued inpatient stay Substantial Risk for: harm to self, inability to function and rapid decompensation
[2021-03-10] VITALS (11 sets, daily range): BP systolic 94–151; BP diastolic 54–94; PULSE 74–97; RESP 14–17; TEMP 36.3–36.9; O2SAT 93–98; BMI 27.6
[2021-03-10] MEDS: Lactated Ringers 500 ML 20 ML IVCONT (08:15)
--- NOTE | 2021-03-10 09:01 | HO.ANESPROP2 ---
[facility] Active Problems Active Problems: All Active Problems (Updated 03/02/21 @ 09:13 by Servando Puga MD) Preoperative cardiovascular examination (Acute) Confusion with nonfocal neurological examination (Acute) Generalized anxiety disorder (Acute) 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 (Acute) Pneumonitis (Acute) Major depressive disorder, recurrent episode, severe with anxious distress (Acute) Pre-op evaluation (Acute) Chronic respiratory failure (Acute) COPD (chronic obstructive pulmonary disease) (Acute) Preop cardiovascular exam (Acute) Depression (Acute) Smoking (Acute) HLD (hyperlipidemia) (Acute) Stented coronary artery (Acute) CAD (coronary artery disease) (Acute) Abnormal nuclear stress test (Acute) Past Medical History Medical History Abnormal nuclear stress test CAD (coronary artery disease) Chronic respiratory failure COPD (chronic obstructive pulmonary disease) Depression Generalized anxiety disorder HLD (hyperlipidemia) Major depressive disorder, recurrent episode, severe with anxious distress Pneumonitis Pre-op evaluation Preop cardiovascular exam Smoking Family History Family History Father No problems noted. Mother No problems noted. Surgical History Surgical History Stented coronary artery Social History Social History Household Members: Unknown / Unable to assess Housing: House Do you presently have visiting nurse or other home services: No Unable to assess alcohol history related to: Unknown Alcohol intake: never Patient Tobacco Use Status: Former Tobacco user Quit Date: 3 months ago Tobacco use type: Cigarette Years Smoked: 40 Smoked in Last 30 Days: No e-Cigarette/Vaping Use: Former Use Patient Interested in Nicotine Replacement: No Patient Given Instructions on How to Stop Smoking: No Second Hand Smoke Exposure: No Use of substances other than those prescribed or required for medical reasons: Unknown Currently Displaying Signs/Symptoms of Drug Intoxication Withdrawal: No Have you been hit, kicked, punched, or otherwise hurt by someone within the past year? If so, by whom?: No Do you feel safe in your current relationship?: No Is there a partner from a previous relationship who is making you feel unsafe now?: No Are you made to feel afraid or neglected: No Are you DNR?: No Advance Directives: No Advance Directives Information Provided: No Advance Directives on File: No Do you have thoughts of harming others: None Do you have a plan to hurt others: No Plan Recently lost weight without trying: Unsure Nutrition Risks: No Nutritional Risk Poor oral hygiene: No service: No Sexual orientation: Lesbian/Triana/Homosexual Meds Allergies Allergy/AdvReac Type Severity Reaction Status Date / Time lamotrigine [From LAMICTAL] Allergy Severe agitation Verified 02/23/21 16:08 and anxiety with titration codeine [CODEINE] Allergy Intermediate INSOMNIA Verified 02/23/21 16:08 Penicillins [PENICILLINS] Allergy Intermediate RASH Verified 02/23/21 16:08 epinephrine [EPINEPHRINE] AdvReac Intermediate Hypertensio Verified 02/23/21 16:08 n escitalopram [From LEXAPRO] AdvReac Intermediate NIGHTMARES Verified 02/23/21 16:08 sertraline [From ZOLOFT] AdvReac Intermediate NIGHTMARES Verified 02/23/21 16:08 sulfamethoxazole AdvReac Intermediate STOMACH Verified 02/23/21 16:08 [From BACTRIM] UPSET Active Medications: Current Medications Generic Name Dose Route Start Last Admin Trade Name Freq PRN Reason Stop Dose Admin Acetaminophen 650 mg 02/27/21 19:42 03/04/21 13:18 Acetaminophen 325 Mg Tablet PO 650 mg Q6H PRN Administration Headache/Pain Mild Scale (1-3) Acetaminophen 650 mg 03/08/21 13:37 Acetaminophen 325 Mg Tablet PO ONCE PRN Pain, Mild (Pain Scale 1-3) Al Hydroxide/Mg Hydroxide 30 ml 02/27/21 19:42 03/07/21 20:26 Magnesium Hydrox/Alum Hydrox 30 Ml Oral.Susp PO 30 ml Q6H PRN Administration Heartburn/Nausea Albuterol Sulfate 2 puff 02/27/21 19:42 03/09/21 17:27 Albuterol Sulfate 90 Mcg 8 Gm Inhaler INHALE 2 puff Q4H PRN Administration Shortness Of Breath Alprazolam 0.5 mg 03/09/21 15:00 03/09/21 22:01 Alprazolam 0.5 Mg Tablet PO Not Given TID ÁLVARO Amlodipine Besylate 10 mg 02/28/21 09:00 03/09/21 08:21 Amlodipine Besylate 10 Mg Tablet PO Not Given DAILY [facility] Protocol Ascorbic Acid 1,000 mg 02/28/21 09:00 03/09/21 08:04 Ascorbic Acid 500 Mg Tablet PO 1,000 mg DAILY ÁLVARO Administration Dicyclomine HCl 30 mg 02/28/21 13:00 03/09/21 20:50 Dicyclomine Hcl 10 Mg Capsule PO 30 mg TID ÁLVARO Administration Divalproex Sodium 125 mg 02/28/21 15:00 03/09/21 22:02 Divalproex Sodium Sprinkles 125 Mg Cap.Dr.Spr PO 125 mg TID ÁLVARO Administration Famotidine 40 mg 02/27/21 21:00 03/09/21 20:58 Famotidine 20 Mg Tablet PO 40 mg BEDTIME ÁLVARO Administration Fluticasone/Vilanterol 1 puff 02/28/21 08:00 03/09/21 08:09 Fluticasone/Vilanterol 200/25 Blst.W.Dev INHALE 1 puff RDAILY ÁLVARO Administration Magnesium Hydroxide 30 ml 02/27/21 19:42 Milk Of Magnesia 30 Ml Oral.Susp PO DAILY PRN Constipation Multivitamins/Vitamin C 1 tab 02/28/21 09:00 03/09/21 08:07 Multivitamin Tablet PO 1 tab DAILY ÁLVARO Administration Nicotine Polacrilex 4 mg 02/27/21 19:42 Nicotine Polacrilex 2 Mg Gum BUCCAL Q2H PRN Nicotine Cravings Nortriptyline HCl 10 mg 03/09/21 21:00 03/09/21 20:53 Nortriptyline Hcl 10 Mg Capsule PO 10 mg BEDTIME ÁLVARO Administration Olanzapine 2.5 mg 02/28/21 21:00 03/09/21 20:57 Olanzapine 2.5 Mg Tablet PO 2.5 mg BEDTIME ÁLVARO Administration Ondansetron HCl 4 mg 03/08/21 13:37 Ondansetron Hcl 4 Mg/2 Ml Vial IVPUSH ONCE PRN Nausea and Vomiting Propranolol HCl 10 mg 02/27/21 21:00 03/09/21 20:54 Propranolol Hcl 10 Mg Tablet PO 10 mg TID ÁLVARO Administration Protocol Quetiapine Fumarate 12.5 mg 03/09/21 13:51 03/09/21 19:29 Quetiapine Fumarate 25 Mg Tablet PO 12.5 mg Q4H PRN Administration anxiety/restlessness Tiotropium [place] 2 puff 02/28/21 08:00 03/09/21 08:11 Tiotropium [place] 18 Mcg Cap.W.Dev INHALE 2 puff RDAILY ÁLVARO Administration Vitamin D 50 mcg 02/28/21 09:00 03/09/21 08:05 Cholecalciferol (Vitamin D3) 25 Mcg Tablet PO 50 mcg DAILY ÁLVARO Administration Home Medications Medication Instructions Recorded Confirmed Last Taken Type Spiriva Respimat 2 puff PO DAILY 07/08/20 02/27/21 02/26/21 History amlodipine 1 tab PO DAILY 07/08/20 02/27/21 02/26/21 History ascorbic acid (vitamin C) 1,000 mg 1,000 mg PO DAILY 07/21/20 02/27/21 02/26/21 History tablet cholecalciferol (vitamin D3) 25 50 mcg PO DAILY cap 07/21/20 02/27/21 02/26/21 History mcg (1,000 unit) capsule famotidine 40 mg PO BEDTIME 02/10/21 02/27/21 02/26/21 History fluticasone propion-salmeterol 1 inh INHALATION BID 02/10/21 02/27/21 02/26/21 History [Advair Diskus] levalbuterol HCl [Xopenex] 1.25 mg INHALATION Q4H PRN 02/10/21 02/27/21 Unknown History propranolol 10 mg PO TID 02/10/21 02/27/21 02/26/21 History azithromycin 250 mg PO MOWEFR 02/27/21 02/27/21 02/26/21 History dicyclomine 10 mg PO TID 02/27/21 02/27/21 02/26/21 History multivitamin 1 tab PO DAILY 02/27/21 02/27/21 02/26/21 History Exam Exam Date and Time: March 10, 2021 09 Height,Weight and Vital Signs: Height 5 ft 7 in Weight 80.2 kg Last Vital Signs Temp 97.5 F 03/10/21 08:15 Pulse 75 03/10/21 08:15 Resp 17 03/10/21 08:15 BP 128/76 03/10/21 08:15 Pulse Ox 97 03/10/21 08:15 Oxygen Flow Rate 2 02/27/21 07:49 Pertinent Lab Results Pertinent Lab Results: Laboratory Tests 02/27/21 02/27/21 02/27/21 09:02 09:02 09:02 WBC 10.5 RBC 5.65 Hgb 16.8 Hct 50.6 MCV 89.6 MCH 29.7 MCHC 33.2 RDW 12.5 Plt Count 271 MPV 8.7 L Immature Gran % (Auto) 0.4 Neut % (Auto) 64.5 Lymph % (Auto) 23.3 [place] % (Auto) 10.4 Eos % (Auto) 1.0 Baso % (Auto) 0.4 Lymph # (Auto) 2.4 [place] # (Auto) 1.1 Eos # (Auto) 0.1 Baso # (Auto) 0.0 Abs Immat Gran (auto) 0.04 H Absolute Neuts (auto) 6.8 Absolute Nucleated RBC 0.000 Nucleated RBC % (auto) 0.0 Sodium 140 Potassium 3.7 Chloride 102 Carbon Dioxide 28 Anion Gap 14 BUN 16 Creatinine 0.99 Estim Creat Clear Calc 81.3 Estimated GFR > 60 Random Glucose 85 Calcium 10.1 Total Bilirubin 0.9 AST 21 D ALT 25 Alkaline Phosphatase 51 Total Protein 7.8 Albumin 4.9 Urine Opiates Screen Not Detected Ur Barbiturates Screen Not Detected Valproic Acid Ur Phencyclidine Scrn Not Detected Ur Amphetamines Screen Not Detected U Benzodiazepines Scrn POSITIVE H Urine Cocaine Screen Not Detected U Marijuana (THC) Screen Not Detected Ethyl Alcohol COVID-19 ([facility]Y) COVID-Mediasmart 02/27/21 02/27/21 03/03/21 09:02 16:46 07:25 WBC RBC Hgb Hct MCV MCH MCHC RDW Plt Count MPV Immature Gran % (Auto) Neut % (Auto) Lymph % (Auto) [place] % (Auto) Eos % (Auto) Baso % (Auto) Lymph # (Auto) [place] # (Auto) Eos # (Auto) Baso # (Auto) Abs Immat Gran (auto) Absolute Neuts (auto) Absolute Nucleated RBC Nucleated RBC % (auto) Sodium Potassium Chloride Carbon Dioxide Anion Gap BUN Creatinine Estim Creat Clear Calc Estimated GFR Random Glucose Calcium Total Bilirubin AST ALT Alkaline Phosphatase Total Protein Albumin Urine Opiates Screen Ur Barbiturates Screen Valproic Acid 25.3 L Ur Phencyclidine Scrn Ur Amphetamines Screen U Benzodiazepines Scrn Urine Cocaine Screen U Marijuana (THC) Screen Ethyl Alcohol < 10 COVID-19 ([facility]Y) Negative COVID-19 [facility] Com See Note 03/06/21 10:22 WBC RBC Hgb Hct MCV MCH MCHC RDW Plt Count MPV Immature Gran % (Auto) Neut % (Auto) Lymph % (Auto) [place] % (Auto) Eos % (Auto) Baso % (Auto) Lymph # (Auto) [place] # (Auto) Eos # (Auto) Baso # (Auto) Abs Immat Gran (auto) Absolute Neuts (auto) Absolute Nucleated RBC Nucleated RBC % (auto) Sodium Potassium Chloride Carbon Dioxide Anion Gap BUN Creatinine Estim Creat Clear Calc Estimated GFR Random Glucose Calcium Total Bilirubin AST ALT Alkaline Phosphatase Total Protein Albumin Urine Opiates Screen Ur Barbiturates Screen Valproic Acid 24.9 L Ur Phencyclidine Scrn Ur Amphetamines Screen U Benzodiazepines Scrn Urine Cocaine Screen U Marijuana (THC) Screen Ethyl Alcohol COVID-19 ([facility]) COVID-19 Clin Com Airway Mallampati Class: II TM Dist: >3cm Neck ROM: Full Assessment and Plan Assessment Anesthesia Assessment: Anesthesia Plan Discussed and Chart Reviewed Final Anesthetic Review NPO: Yes ASA Class: III Final Preanesthetic Review: No Changes in Pt Med Stat, Meds/Allgs Chart Reviewed, Consent Obtained/Reviewed and Anes Risks/Benef Reviewed Patient Risk: Intermediate Procedure Risk: Low Assessment/Block/Sedation in SS: Assess/Block/Sedation-SS Anesthetic Plan Anesthetic Plan: GA Disposition: Standard PACU
--- NOTE | 2021-03-10 10:05 | HO.ECTPROC ---
ECT Procedure Note Diagnosis/Treatment Date of Service: 03/10/21 Previous ECT Date: 03/08/21 Current Treatment Number: 3 Treatment: Series Interval Clinical Notes: pt severely depressed anxious obsessional ruminating ECT Settings Device: THYMATRON DGx Electrode Placement: Bifrontal Program/Pulse Width: 0.25 Energy Percent: 100 Seizure Duration By EEG (in seconds): 36 Medications Administration General Anesthetic: Etomidate (12) Muscle Relaxant: Succinylcholine (100) Ancillary Medications Analgesics: Torodol - Pre ECT Anti-emetics: Zofran - Pre ECT Miscillaneous Medications: Propofol and Midazolam Airway Management Airway Management: Bag Mask Ventilation Treatment Recommendations Electrode Placement: Bifrontal Notes: if no improvement change to bf 0.5 Pt Tolerated Procedure w/o Issue: Yes
[2021-03-10] MEDS: Cholecalciferol (Vitamin D3) 25 MCG TABLET 50 MCG PO (10:44)
[2021-03-10] MEDS: Dicyclomine HCl 10 MG CAPSULE 30 MG PO ×3 (10:44→20:06)
[2021-03-10] MEDS: Ascorbic Acid 500 MG TABLET 1000 MG PO (10:44)
[2021-03-10] MEDS: ALPRAZolam 0.5 MG TABLET PO ×3 (10:45→20:07)
[2021-03-10] MEDS: Multivitamin TABLET 1 TAB PO (10:45)
[2021-03-10] MEDS: Divalproex Sodium Sprinkles 125 MG CAP.DR.SPR PO ×3 (10:45→20:07)
[2021-03-10] MEDS: Propranolol HCL 10 MG TABLET PO ×2 (10:45→15:07)
[2021-03-10] MEDS: Fluticasone/Vilanterol 200/25 BLST.W.DEV 1 PUFF INHALE (10:48)
[2021-03-10] MEDS: amLODIPine Besylate 10 MG TABLET PO (11:00)
[2021-03-10] MEDS: Nortriptyline HCl 10 MG CAPSULE PO (20:07)
[2021-03-10] MEDS: Famotidine 20 MG TABLET 40 MG PO (20:07)
--- NOTE | 2021-03-10 21:54 | P.PNPSI_ITS ---
Subjective Subjective Date of Service: 03/10/21 Reason For Visit: Depression Subjective Notes: Conditional Voluntary Medical Problems Affecting Mental Status: Yes Interim History: Patient remains severely depressed nortriptyline started on ECT Mental Status Exam Mental Status Exam Narrative: The pt Sad looking irritable depressed and withdrawn He is anxious hopeless helpless poverty of content thoughts intermittently that he would be better off denies any active plan or intent. Some difficulty processing information preoccupied with whether he will ever be better no hallucinations impulse control intact in this setting worsening anxiety depression patient ruminating patient despairing having difficulty processing information increasingly hopeless helpless and despondent tolerated ect Diagnostics Vital Signs (24Hr): Vital Signs - 24 hr 03/10/21 06:00 03/10/21 08:15 03/10/21 09:18 Temperature 98.0 F 97.5 F 97.3 F Pulse Rate 74 75 92 Respiratory Rate 16 17 16 Blood Pressure 108/55 L 128/76 145/54 H Pulse Oximetry 95 97 98 03/10/21 09:23 03/10/21 09:28 03/10/21 09:33 Temperature Pulse Rate 91 95 97 Respiratory Rate 16 16 16 Blood Pressure 126/78 135/80 148/87 H Pulse Oximetry 98 98 97 03/10/21 09:47 03/10/21 10:05 03/10/21 11:04 Temperature 97.3 F 97.3 F 98.4 F Pulse Rate 89 84 78 Respiratory Rate 16 16 14 Blood Pressure 151/94 H 146/82 H 138/82 Pulse Oximetry 97 98 03/10/21 18:00 03/10/21 20:06 Temperature 98.4 F Pulse Rate 78 76 Respiratory Rate Blood Pressure 94/60 98/60 Pulse Oximetry 93 Body Mass Index 27.6 Labs Results: 02/27/21 09:02 02/27/21 09:02 Medications Medications Current Medications Generic Name Dose Route Start Last Admin Trade Name Freq PRN Reason Stop Dose Admin Acetaminophen 650 mg 02/27/21 19:42 03/04/21 13:18 Acetaminophen 325 Mg Tablet PO 650 mg Q6H PRN Administration Headache/Pain Mild Scale (1-3) Acetaminophen 650 mg 03/08/21 13:37 Acetaminophen 325 Mg Tablet PO ONCE PRN Pain, Mild (Pain Scale 1-3) Al Hydroxide/Mg Hydroxide 30 ml 02/27/21 19:42 03/07/21 20:26 Magnesium Hydrox/Alum Hydrox 30 Ml Oral.Susp PO 30 ml Q6H PRN Administration Heartburn/Nausea Albuterol Sulfate 2 puff 02/27/21 19:42 03/09/21 17:27 Albuterol Sulfate 90 Mcg 8 Gm Inhaler INHALE 2 puff Q4H PRN Administration Shortness Of Breath Alprazolam 0.5 mg 03/09/21 15:00 03/10/21 20:07 Alprazolam 0.5 Mg Tablet PO 0.5 mg TID ÁLVARO Administration Amlodipine Besylate 10 mg 02/28/21 09:00 03/10/21 11:00 Amlodipine Besylate 10 Mg Tablet PO 10 mg DAILY ÁLVARO Administration Protocol Ascorbic Acid 1,000 mg 02/28/21 09:00 03/10/21 10:44 Ascorbic Acid 500 Mg Tablet PO 1,000 mg DAILY ÁLVARO Administration Dicyclomine HCl 30 mg 02/28/21 13:00 03/10/21 20:06 Dicyclomine Hcl 10 Mg Capsule PO 30 mg TID ÁLVARO Administration Divalproex Sodium 125 mg 02/28/21 15:00 03/10/21 20:07 Divalproex Sodium Sprinkles 125 Mg Cap.Dr.Spr PO 125 mg TID ÁLVARO Administration Famotidine 40 mg 02/27/21 21:00 03/10/21 20:07 Famotidine 20 Mg Tablet PO 40 mg BEDTIME ÁLVARO Administration Fluticasone/Vilanterol 1 puff 02/28/21 08:00 03/10/21 10:48 Fluticasone/Vilanterol 200/25 Blst.W.Dev INHALE 1 puff RDAILY ÁLVARO Administration Lactated Ringer's 500 mls @ 20 mls/hr 03/10/21 09:15 03/10/21 10:09 Lr IVCONT Infused .Q24H ÁLVARO Infusion Magnesium Hydroxide 30 ml 02/27/21 19:42 Milk Of Magnesia 30 Ml Oral.Susp PO DAILY PRN Constipation Multivitamins/Vitamin C 1 tab 02/28/21 09:00 03/10/21 10:45 Multivitamin Tablet PO 1 tab DAILY ÁLVARO Administration Nicotine Polacrilex 4 mg 02/27/21 19:42 Nicotine Polacrilex 2 Mg Gum BUCCAL Q2H PRN Nicotine Cravings Nortriptyline HCl 10 mg 03/09/21 21:00 03/10/21 20:07 Nortriptyline Hcl 10 Mg Capsule PO 10 mg BEDTIME ÁLVARO Administration Ondansetron HCl 4 mg 03/08/21 13:37 Ondansetron Hcl 4 Mg/2 Ml Vial IVPUSH ONCE PRN Nausea and Vomiting Propranolol HCl 10 mg 02/27/21 21:00 03/10/21 20:06 Propranolol Hcl 10 Mg Tablet PO Not Given TID [facility] Protocol Quetiapine Fumarate 12.5 mg 03/09/21 13:51 03/09/21 19:29 Quetiapine Fumarate 25 Mg Tablet PO 12.5 mg Q4H PRN Administration anxiety/restlessness Tiotropium [place] 2 puff 02/28/21 08:00 03/10/21 10:48 Tiotropium [place] 18 Mcg Cap.W.Dev INHALE 2 puff RDAILY ÁLVARO Administration Vitamin D 50 mcg 02/28/21 09:00 03/10/21 10:44 Cholecalciferol (Vitamin D3) 25 Mcg Tablet PO 50 mcg DAILY ÁLVARO Administration Allergies Allergies Allergy/AdvReac Type Severity Reaction Status Date / Time lamotrigine [From LAMICTAL] Allergy Severe agitation Verified 02/23/21 16:08 and anxiety with titration codeine [CODEINE] Allergy Intermediate INSOMNIA Verified 02/23/21 16:08 Penicillins [PENICILLINS] Allergy Intermediate RASH Verified 02/23/21 16:08 epinephrine [EPINEPHRINE] AdvReac Intermediate Hypertensio Verified 02/23/21 16:08 n escitalopram [From LEXAPRO] AdvReac Intermediate NIGHTMARES Verified 02/23/21 16:08 sertraline [From ZOLOFT] AdvReac Intermediate NIGHTMARES Verified 02/23/21 16:08 sulfamethoxazole AdvReac Intermediate STOMACH Verified 02/23/21 16:08 [From BACTRIM] UPSET Assessment & Plan Assessment & Plan (1) Preoperative cardiovascular examination: Status: Acute Code(s): Z01.810 - Encounter for preprocedural cardiovascular examination (2) CAD (coronary artery disease): Status: Acute Code(s): I25.10 - Atherosclerotic heart disease of [place] coronary artery without angina pectoris (3) Confusion with nonfocal neurological examination: Status: Acute Code(s): R41.0 - Disorientation, unspecified (4) Generalized anxiety disorder: Status: Acute Code(s): F41.1 - Generalized anxiety disorder (5) 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: Status: Acute Code(s): F40.01 - Agoraphobia with panic disorder (6) Major depressive disorder, recurrent episode, severe with anxious distress: Status: Acute Code(s): F33.2 - Major depressive disorder, recurrent severe without psychotic features Assessment and Plan: ect started x 3 change to BF Patient is hopeless helpless despondent has failed multiple trials of medication no self-harming thoughts in this setting but s everely ruminating poverty of content cont ect not stable for outpt tx change to alprazolam from ativan not helpful start nortriptyline 10 hs continue ECT Seroquel started secondary to severe anxiety Greater than 50% of the session was spent on counseling and/or coordination of care Reason for contiued inpatient stay Substantial Risk for: inability to function, rapid decompensation and med/psych decompensation
[2021-03-11] VITALS (13 sets, daily range): BP systolic 90–132; BP diastolic 52–76; PULSE 72–101; RESP 16–18; TEMP 36.1–36.7; O2SAT 90–98
[2021-03-11] MEDS: Albuterol Sulfate 90 MCG 8 GM INHALER 2 PUFF INHALE ×2 (08:30→19:35)
[2021-03-11] MEDS: Fluticasone/Vilanterol 200/25 BLST.W.DEV 1 PUFF INHALE (08:30)
[2021-03-11] MEDS: Cholecalciferol (Vitamin D3) 25 MCG TABLET 50 MCG PO (08:36)
[2021-03-11] MEDS: Dicyclomine HCl 10 MG CAPSULE 30 MG PO ×3 (08:37→20:01)
[2021-03-11] MEDS: amLODIPine Besylate 10 MG TABLET PO (08:37)
[2021-03-11] MEDS: ALPRAZolam 0.5 MG TABLET PO ×3 (08:37→20:01)
[2021-03-11] MEDS: Divalproex Sodium Sprinkles 125 MG CAP.DR.SPR PO (08:37)
[2021-03-11] MEDS: Ascorbic Acid 500 MG TABLET 1000 MG PO (08:37)
[2021-03-11] MEDS: Multivitamin TABLET 1 TAB PO (08:37)
--- NOTE | 2021-03-11 10:20 | P.PNPSI_ITS ---
Subjective Subjective Date of Service: 03/11/21 Reason For Visit: Depression Subjective Notes: Conditional Voluntary Interim History: The patient is depressed withdrawn and lethargic Medication Compliance: Intermittent Side effects from medications: Yes Attending Groups: Intermittent Mental Status Exam Mental Status Exam Patient Appearance: Appropriate Patient Orientation: Person, Place, Time and Situation Level of Consciousness: Awake and Lethargic Patient Behavior: Isolative Mood Description: Calm, Withdrawn, Flat and Sad Affect Description: Withdrawn, Depressed, Blunted and Flat Hallucinations: None Delusions: Not Present Thought Process: Rumination and Slowed Thinking Thought Content: positive for Suicidal Ideation (Thoughts that he might be better off no plan or intent) Depressive Symptoms: Increased Fatigue, Thoughts of /Suicide, Loss of Energy and Difficulty Concentrating Judgement: Fair Diagnostics Vital Signs (24Hr): Vital Signs - 24 hr 03/10/21 11:04 03/10/21 18:00 03/10/21 20:06 Temperature 98.4 F 98.4 F Pulse Rate 78 78 76 Respiratory Rate 14 Blood Pressure 138/82 94/60 98/60 Pulse Oximetry 93 03/11/21 06:00 03/11/21 08:29 03/11/21 08:37 Temperature 98 F 97.0 F Pulse Rate 72 81 81 Respiratory Rate 18 16 Blood Pressure 90/52 L 123/60 123/60 Pulse Oximetry 90 L 95 03/11/21 09:34 Temperature Pulse Rate 81 Respiratory Rate Blood Pressure 129/73 Pulse Oximetry 93 Body Mass Index 27.6 Labs Results: 02/27/21 09:02 02/27/21 09:02 Medications Medications Current Medications Generic Name Dose Route Start Last Admin Trade Name Freq PRN Reason Stop Dose Admin Acetaminophen 650 mg 02/27/21 19:42 03/04/21 13:18 Acetaminophen 325 Mg Tablet PO 650 mg Q6H PRN Administration Headache/Pain Mild Scale (1-3) Acetaminophen 650 mg 03/08/21 13:37 Acetaminophen 325 Mg Tablet PO ONCE PRN Pain, Mild (Pain Scale 1-3) Al Hydroxide/Mg Hydroxide 30 ml 02/27/21 19:42 03/07/21 20:26 Magnesium Hydrox/Alum Hydrox 30 Ml Oral.Susp PO 30 ml Q6H PRN Administration Heartburn/Nausea Albuterol Sulfate 2 puff 02/27/21 19:42 03/11/21 08:30 Albuterol Sulfate 90 Mcg 8 Gm Inhaler INHALE 2 puff Q4H PRN Administration Shortness Of Breath Alprazolam 0.5 mg 03/09/21 15:00 03/11/21 08:37 Alprazolam 0.5 Mg Tablet PO 0.5 mg TID ÁLVARO Administration Amlodipine Besylate 10 mg 02/28/21 09:00 03/11/21 08:37 Amlodipine Besylate 10 Mg Tablet PO 10 mg DAILY ÁLVARO Administration Protocol Ascorbic Acid 1,000 mg 02/28/21 09:00 03/11/21 08:37 Ascorbic Acid 500 Mg Tablet PO 1,000 mg DAILY ÁLVARO Administration Dicyclomine HCl 30 mg 02/28/21 13:00 03/11/21 08:37 Dicyclomine Hcl 10 Mg Capsule PO 30 mg TID ÁLVARO Administration Divalproex Sodium 125 mg 02/28/21 15:00 03/11/21 08:37 Divalproex Sodium Sprinkles 125 Mg Cap.Dr.Spr PO 125 mg TID ÁLVARO Administration Famotidine 40 mg 02/27/21 21:00 03/10/21 20:07 Famotidine 20 Mg Tablet PO 40 mg BEDTIME ÁLVARO Administration Fluticasone/Vilanterol 1 puff 02/28/21 08:00 03/11/21 08:30 Fluticasone/Vilanterol 200/25 Blst.W.Dev INHALE 1 puff RDAILY ÁLVARO Administration Lactated Ringer's 500 mls @ 20 mls/hr 03/10/21 09:15 03/10/21 10:09 Lr IVCONT Infused .Q24H ÁLVARO Infusion Magnesium Hydroxide 30 ml 02/27/21 19:42 Milk Of Magnesia 30 Ml Oral.Susp PO DAILY PRN Constipation Multivitamins/Vitamin C 1 tab 02/28/21 09:00 03/11/21 08:37 Multivitamin Tablet PO 1 tab DAILY ÁLVARO Administration Nicotine Polacrilex 4 mg 02/27/21 19:42 Nicotine Polacrilex 2 Mg Gum BUCCAL Q2H PRN Nicotine Cravings Nortriptyline HCl 10 mg 03/09/21 21:00 03/10/21 20:07 Nortriptyline Hcl 10 Mg Capsule PO 10 mg BEDTIME ÁLVARO Administration Ondansetron HCl 4 mg 03/08/21 13:37 Ondansetron Hcl 4 Mg/2 Ml Vial IVPUSH ONCE PRN Nausea and Vomiting Propranolol HCl 10 mg 02/27/21 21:00 03/10/21 20:06 Propranolol Hcl 10 Mg Tablet PO Not Given TID [facility] Protocol Quetiapine Fumarate 12.5 mg 03/09/21 13:51 03/09/21 19:29 Quetiapine Fumarate 25 Mg Tablet PO 12.5 mg Q4H PRN Administration anxiety/restlessness Tiotropium [place] 2 puff 02/28/21 08:00 03/11/21 08:30 Tiotropium [place] 18 Mcg Cap.W.Dev INHALE 2 puff RDAILY ÁLVARO Administration Vitamin D 50 mcg 02/28/21 09:00 03/11/21 08:36 Cholecalciferol (Vitamin D3) 25 Mcg Tablet PO 50 mcg DAILY ÁLVARO Administration Allergies Allergies Allergy/AdvReac Type Severity Reaction Status Date / Time lamotrigine [From LAMICTAL] Allergy Severe agitation Verified 02/23/21 16:08 and anxiety with titration codeine [CODEINE] Allergy Intermediate INSOMNIA Verified 02/23/21 16:08 Penicillins [PENICILLINS] Allergy Intermediate RASH Verified 02/23/21 16:08 epinephrine [EPINEPHRINE] AdvReac Intermediate Hypertensio Verified 02/23/21 16:08 n escitalopram [From LEXAPRO] AdvReac Intermediate NIGHTMARES Verified 02/23/21 16:08 sertraline [From ZOLOFT] AdvReac Intermediate NIGHTMARES Verified 02/23/21 16:08 sulfamethoxazole AdvReac Intermediate STOMACH Verified 02/23/21 16:08 [From BACTRIM] UPSET Assessment & Plan Assessment & Plan (1) Preoperative cardiovascular examination: Status: Acute Code(s): Z01.810 - Encounter for preprocedural cardiovascular examination (2) CAD (coronary artery disease): Status: Acute Code(s): I25.10 - Atherosclerotic heart disease of [place] coronary artery without angina pectoris (3) Confusion with nonfocal neurological examination: Status: Acute Code(s): R41.0 - Disorientation, unspecified (4) Generalized anxiety disorder: Status: Acute Code(s): F41.1 - Generalized anxiety disorder (5) 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: Status: Acute Code(s): F40.01 - Agoraphobia with panic disorder (6) Major depressive disorder, recurrent episode, severe with anxious distress: Status: Acute Code(s): F33.2 - Major depressive disorder, recurrent severe without psychotic features Assessment and Plan: ECT change to bilateral given present fatigue and so far no response to treatment low-dose Depakote discontinued continue alprazolam will hold propranolol for now may be contributing to fatigue and depression Monitor response to treatment continue nortriptyline 10 mg at bedtime Greater than 50% of the session was spent on counseling and/or coordination of care Reason for contiued inpatient stay Substantial Risk for: inability to function, rapid decompensation and med/psych decompensation
--- NOTE | 2021-03-11 11:36 | HO.POSTANES ---
Post Anesthesia Evaluation Post Anesthesia Evaluation Vital Signs: Vital Signs Temp Pulse Resp BP Pulse Ox 03/11/21 10:42 90 123/60 03/11/21 10:30 83 113/70 94 03/11/21 09:34 81 129/73 93 03/11/21 08:37 81 123/60 03/11/21 08:29 97.0 F 81 16 123/60 95 03/11/21 06:00 98 F 72 18 90/52 L 90 L Anesthesia: General Mental Status: Awake Pain Control: Satisfactory Nausea/Vomiting: None Hydration: Adequate Anesthesia-Related Issues: No Anes. Related Issues
[2021-03-11] MEDS: Famotidine 20 MG TABLET 40 MG PO (20:01)
[2021-03-11] MEDS: Nortriptyline HCl 10 MG CAPSULE PO (20:01)
[2021-03-11] MEDS: Magnesium Hydrox/Alum Hydrox 30 ML ORAL.SUSP PO (20:20)
[2021-03-12 06:00] VITALS: BP 114/67; PULSE 75; RESP 16; TEMP 36.3; O2SAT 93
[2021-03-12] MEDS: Albuterol Sulfate 90 MCG 8 GM INHALER 2 PUFF INHALE (08:34)
[2021-03-12] MEDS: Fluticasone/Vilanterol 200/25 BLST.W.DEV 1 PUFF INHALE (08:36)
[2021-03-12] MEDS: Dicyclomine HCl 10 MG CAPSULE 30 MG PO ×3 (08:37→19:58)
[2021-03-12] MEDS: Multivitamin TABLET 1 TAB PO (08:37)
[2021-03-12] MEDS: Cholecalciferol (Vitamin D3) 25 MCG TABLET 50 MCG PO (08:37)
[2021-03-12 08:38] VITALS: BP 128/78; PULSE 105
[2021-03-12] MEDS: Ascorbic Acid 500 MG TABLET 1000 MG PO (08:38)
[2021-03-12] MEDS: ALPRAZolam 0.5 MG TABLET PO ×2 (08:38→12:24)
[2021-03-12] MEDS: amLODIPine Besylate 10 MG TABLET PO (08:38)
[2021-03-12] MEDS: LORazepam 0.5 MG TABLET PO ×2 (14:30→19:24)
[2021-03-12 18:07] VITALS: BP 113/68; PULSE 98; TEMP 36.6; O2SAT 96
[2021-03-12] MEDS: Nortriptyline HCl 10 MG CAPSULE PO (19:58)
[2021-03-12] MEDS: Famotidine 20 MG TABLET 40 MG PO (19:58)
[2021-03-12] MEDS: Magnesium Hydrox/Alum Hydrox 30 ML ORAL.SUSP PO (19:58)
--- NOTE | 2021-03-12 20:59 | P.PNPSI_ITS ---
Subjective Subjective Date of Service: 03/12/21 Reason For Visit: Depression Subjective Notes: Conditional Voluntary Medical Problems Affecting Mental Status: No Interim History: Patient somewhat less depressed again insisting on changing regine k to lorazepam from alprazolam Depakote discontinued anxious preoccupied and sad question some improvement from last ECT Medication Compliance: Intermittent Side effects from medications: Yes Attending Groups: Intermittent Mental Status Exam Mental Status Exam Patient Appearance: Appropriate Patient Orientation: Person, Place, Time and Situation Level of Consciousness: Awake and Lethargic Patient Behavior: Appropriate and Isolative Mood Description: Calm, Withdrawn, Flat and Sad Affect Description: Withdrawn, Depressed, Blunted and Flat Ability to Follow Directions: Fair Speech Pattern: Clear Hallucinations: None Delusions: Not Present Thought Process: Rumination and Slowed Thinking Thought Content: positive for Suicidal Ideation (Thoughts that he might be better off no plan or intent) Depressive Symptoms: Increased Fatigue, Thoughts of /Suicide, Loss of Energy and Difficulty Concentrating Judgement: Fair Diagnostics Vital Signs (24Hr): Vital Signs - 24 hr 03/12/21 06:00 03/12/21 08:38 03/12/21 18:07 Temperature 97.3 F 97.9 F Pulse Rate 75 105 H 98 Respiratory Rate 16 Blood Pressure 114/67 128/78 113/68 Pulse Oximetry 93 96 Body Mass Index 27.6 Labs Results: 02/27/21 09:02 02/27/21 09:02 Medications Medications Current Medications Generic Name Dose Route Start Last Admin Trade Name Freq PRN Reason Stop Dose Admin Acetaminophen 650 mg 02/27/21 19:42 03/04/21 13:18 Acetaminophen 325 Mg Tablet PO 650 mg Q6H PRN Administration Headache/Pain Mild Scale (1-3) Acetaminophen 650 mg 03/08/21 13:37 Acetaminophen 325 Mg Tablet PO ONCE PRN Pain, Mild (Pain Scale 1-3) Al Hydroxide/Mg Hydroxide 30 ml 02/27/21 19:42 03/12/21 19:58 Magnesium Hydrox/Alum Hydrox 30 Ml Oral.Susp PO 30 ml Q6H PRN Administration Heartburn/Nausea Albuterol Sulfate 2 puff 02/27/21 19:42 03/12/21 08:34 Albuterol Sulfate 90 Mcg 8 Gm Inhaler INHALE 2 puff Q4H PRN Administration Shortness Of Breath Amlodipine Besylate 10 mg 02/28/21 09:00 03/12/21 08:38 Amlodipine Besylate 10 Mg Tablet PO 10 mg DAILY ÁLVARO Administration Protocol Ascorbic Acid 1,000 mg 02/28/21 09:00 03/12/21 08:38 Ascorbic Acid 500 Mg Tablet PO 1,000 mg DAILY ÁLVARO Administration Dicyclomine HCl 30 mg 02/28/21 13:00 03/12/21 19:58 Dicyclomine Hcl 10 Mg Capsule PO 30 mg TID ÁLVARO Administration Famotidine 40 mg 02/27/21 21:00 03/12/21 19:58 Famotidine 20 Mg Tablet PO 40 mg BEDTIME ÁLVARO Administration Fluticasone/Vilanterol 1 puff 02/28/21 08:00 03/12/21 08:36 Fluticasone/Vilanterol 200/25 Blst.W.Dev INHALE 1 puff RDAILY ÁLVARO Administration Lorazepam 0.5 mg 03/12/21 17:00 03/12/21 14:30 Lorazepam 0.5 Mg Tablet PO 0.5 mg QID ÁLVARO Administration Lorazepam 0.5 mg 03/12/21 18:46 03/12/21 19:24 Lorazepam 0.5 Mg Tablet PO 0.5 mg Q6H PRN Administration anxiety/restlessness Magnesium Hydroxide 30 ml 02/27/21 19:42 Milk Of Magnesia 30 Ml Oral.Susp PO DAILY PRN Constipation Multivitamins/Vitamin C 1 tab 02/28/21 09:00 03/12/21 08:37 Multivitamin Tablet PO 1 tab DAILY ÁLVARO Administration Nicotine Polacrilex 4 mg 02/27/21 19:42 Nicotine Polacrilex 2 Mg Gum BUCCAL Q2H PRN Nicotine Cravings Nortriptyline HCl 10 mg 03/09/21 21:00 03/12/21 19:58 Nortriptyline Hcl 10 Mg Capsule PO 10 mg BEDTIME ÁLVARO Administration Ondansetron HCl 4 mg 03/08/21 13:37 Ondansetron Hcl 4 Mg/2 Ml Vial IVPUSH ONCE PRN Nausea and Vomiting Quetiapine Fumarate 12.5 mg 03/09/21 13:51 03/09/21 19:29 Quetiapine Fumarate 25 Mg Tablet PO 12.5 mg Q4H PRN Administration anxiety/restlessness Tiotropium [place] 2 puff 02/28/21 08:00 03/12/21 08:35 Tiotropium [place] 18 Mcg Cap.W.Dev INHALE 2 puff RDAILY ÁLVARO Administration Vitamin D 50 mcg 02/28/21 09:00 03/12/21 08:37 Cholecalciferol (Vitamin D3) 25 Mcg Tablet PO 50 mcg DAILY ÁLVARO Administration Allergies Allergies Allergy/AdvReac Type Severity Reaction Status Date / Time lamotrigine [From LAMICTAL] Allergy Severe agitation Verified 02/23/21 16:08 and anxiety with titration codeine [CODEINE] Allergy Intermediate INSOMNIA Verified 02/23/21 16:08 Penicillins [PENICILLINS] Allergy Intermediate RASH Verified 02/23/21 16:08 epinephrine [EPINEPHRINE] AdvReac Intermediate Hypertensio Verified 02/23/21 16:08 n escitalopram [From LEXAPRO] AdvReac Intermediate NIGHTMARES Verified 02/23/21 16:08 sertraline [From ZOLOFT] AdvReac Intermediate NIGHTMARES Verified 02/23/21 16:08 sulfamethoxazole AdvReac Intermediate STOMACH Verified 02/23/21 16:08 [From BACTRIM] UPSET Assessment & Plan Assessment & Plan (1) Preoperative cardiovascular examination: Status: Acute Code(s): Z01.810 - Encounter for preprocedural cardiovascular examination (2) CAD (coronary artery disease): Status: Acute Code(s): I25.10 - Atherosclerotic heart disease of [place] coronary artery without angina pectoris (3) Confusion with nonfocal neurological examination: Status: Acute Code(s): R41.0 - Disorientation, unspecified (4) Generalized anxiety disorder: Status: Acute Code(s): F41.1 - Generalized anxiety disorder (5) 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: Status: Acute Code(s): F40.01 - Agoraphobia with panic disorder (6) Major depressive disorder, recurrent episode, severe with anxious distress: Status: Acute Code(s): F33.2 - Major depressive disorder, recurrent severe without psychotic features Assessment and Plan: ECT change to bilateral given present fatigue and so far no response to treatment low-dose Depakote discontinued continue alprazolam will hold pr opranolol for now may be contributing to fatigue and depression Monitor response to treatment continue nortriptyline 10 mg at bedtime Greater than 50% of the session was spent on counseling and/or coordination of care Reason for contiued inpatient stay Substantial Risk for: inability to function and rapid decompensation
--- NOTE | 2021-03-12 21:38 | PC.NURSE ---
Per shift change report, Hold Ativan for 10 hours prior to ECT. Last available dose 8pm. 9pm dose held per M.D. Med Orders
[2021-03-13] VITALS (10 sets, daily range): BP systolic 105–163; BP diastolic 61–86; PULSE 80–131; RESP 16–19; TEMP 36.3–36.8; O2SAT 92–100; BMI 28.1
--- NOTE | 2021-03-13 07:12 | P.CONAN_ITS ---
[facility] Active Problems Active Problems: All Active Problems (Updated 03/02/21 @ 09:13 by Servando Puga MD) Preoperative cardiovascular examination (Acute) Confusion with nonfocal neurological examination (Acute) Generalized anxiety disorder (Acute) 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 (Acute) Pneumonitis (Acute) Major depressive disorder, recurrent episode, severe with anxious distress (Acute) Pre-op evaluation (Acute) Chronic respiratory failure (Acute) COPD (chronic obstructive pulmonary disease) (Acute) Preop cardiovascular exam (Acute) Depression (Acute) Smoking (Acute) HLD (hyperlipidemia) (Acute) Stented coronary artery (Acute) CAD (coronary artery disease) (Acute) Abnormal nuclear stress test (Acute) Past Medical History Medical History Abnormal nuclear stress test CAD (coronary artery disease) Chronic respiratory failure COPD (chronic obstructive pulmonary disease) Depression Generalized anxiety disorder HLD (hyperlipidemia) Major depressive disorder, recurrent episode, severe with anxious distress Pneumonitis Pre-op evaluation Preop cardiovascular exam Smoking Family History Family History Father No problems noted. Mother No problems noted. Surgical History Surgical History Stented coronary artery Social History Social History Household Members: Unknown / Unable to assess Housing: House Do you presently have visiting nurse or other home services: No Unable to assess alcohol history related to: Unknown Alcohol intake: never Patient Tobacco Use Status: Former Tobacco user Quit Date: 3 months ago Tobacco use type: Cigarette Years Smoked: 40 Smoked in Last 30 Days: No e-Cigarette/Vaping Use: Former Use Patient Interested in Nicotine Replacement: No Patient Given Instructions on How to Stop Smoking: No Second Hand Smoke Exposure: No Use of substances other than those prescribed or required for medical reasons: Unknown Currently Displaying Signs/Symptoms of Drug Intoxication Withdrawal: No Have you been hit, kicked, punched, or otherwise hurt by someone within the past year? If so, by whom?: No Do you feel safe in your current relationship?: No Is there a partner from a previous relationship who is making you feel unsafe now?: No Are you made to feel afraid or neglected: No Are you DNR?: No Advance Directives: No Advance Directives Information Provided: No Advance Directives on File: No Do you have thoughts of harming others: None Do you have a plan to hurt others: No Plan Recently lost weight without trying: Unsure Nutrition Risks: No Nutritional Risk Poor oral hygiene: No service: No Sexual orientation: Lesbian/Tri[place]/Homosexual Meds Allergies Allergy/AdvReac Type Severity Reaction Status Date / Time lamotrigine [From LAMICTAL] Allergy Severe agitation Verified 02/23/21 16:08 and anxiety with titration codeine [CODEINE] Allergy Intermediate INSOMNIA Verified 02/23/21 16:08 Penicillins [PENICILLINS] Allergy Intermediate RASH Verified 02/23/21 16:08 epinephrine [EPINEPHRINE] AdvReac Intermediate Hypertensio Verified 02/23/21 16:08 n escitalopram [From LEXAPRO] AdvReac Intermediate NIGHTMARES Verified 02/23/21 16:08 sertraline [From ZOLOFT] AdvReac Intermediate NIGHTMARES Verified 02/23/21 16:08 sulfamethoxazole AdvReac Intermediate STOMACH Verified 02/23/21 16:08 [From BACTRIM] UPSET Active Medications: Current Medications Generic Name Dose Route Start Last Admin Trade Name Freq PRN Reason Stop Dose Admin Acetaminophen 650 mg 02/27/21 19:42 03/04/21 13:18 Acetaminophen 325 Mg Tablet PO 650 mg Q6H PRN Administration Headache/Pain Mild Scale (1-3) Acetaminophen 650 mg 03/08/21 13:37 Acetaminophen 325 Mg Tablet PO ONCE PRN Pain, Mild (Pain Scale 1-3) Al Hydroxide/Mg Hydroxide 30 ml 02/27/21 19:42 03/12/21 19:58 Magnesium Hydrox/Alum Hydrox 30 Ml Oral.Susp PO 30 ml Q6H PRN Administration Heartburn/Nausea Albuterol Sulfate 2 puff 02/27/21 19:42 03/12/21 08:34 Albuterol Sulfate 90 Mcg 8 Gm Inhaler INHALE 2 puff Q4H PRN Administration Shortness Of Breath Amlodipine Besylate 10 mg 02/28/21 09:00 03/12/21 08:38 Amlodipine Besylate 10 Mg Tablet PO 10 mg DAILY ÁLVARO Administration Protocol Ascorbic Acid 1,000 mg 02/28/21 09:00 03/12/21 08:38 Ascorbic Acid 500 Mg Tablet PO 1,000 mg DAILY ÁLVARO Administration Dicyclomine HCl 30 mg 02/28/21 13:00 03/12/21 19:58 Dicyclomine Hcl 10 Mg Capsule PO 30 mg TID ÁLVARO Administration Famotidine 40 mg 02/27/21 21:00 03/12/21 19:58 Famotidine 20 Mg Tablet PO 40 mg BEDTIME ÁLVARO Administration Fluticasone/Vilanterol 1 puff 02/28/21 08:00 03/12/21 08:36 Fluticasone/Vilanterol 200/25 Blst.W.Dev INHALE 1 puff RDAILY ÁLVARO Administration Lorazepam 0.5 mg 03/12/21 17:00 03/12/21 21:38 Lorazepam 0.5 Mg Tablet PO Not Given QID ÁLVARO Lorazepam 0.5 mg 03/12/21 18:46 03/12/21 19:24 Lorazepam 0.5 Mg Tablet PO 0.5 mg Q6H PRN Administration anxiety/restlessness Magnesium Hydroxide 30 ml 02/27/21 19:42 Milk Of Magnesia 30 Ml Oral.Susp PO DAILY PRN Constipation Multivitamins/Vitamin C 1 tab 02/28/21 09:00 03/12/21 08:37 Multivitamin Tablet PO 1 tab DAILY ÁLVARO Administration Nicotine Polacrilex 4 mg 02/27/21 19:42 Nicotine Polacrilex 2 Mg Gum BUCCAL Q2H PRN Nicotine Cravings Nortriptyline HCl 10 mg 03/09/21 21:00 03/12/21 19:58 Nortriptyline Hcl 10 Mg Capsule PO 10 mg BEDTIME ÁLVARO Administration Ondansetron HCl 4 mg 03/08/21 13:37 Ondansetron Hcl 4 Mg/2 Ml Vial IVPUSH ONCE PRN Nausea and Vomiting Quetiapine Fumarate 12.5 mg 03/09/21 13:51 03/09/21 19:29 Quetiapine Fumarate 25 Mg Tablet PO 12.5 mg Q4H PRN Administration anxiety/restlessness Tiotropium [place] 2 puff 02/28/21 08:00 03/12/21 08:35 Tiotropium [place] 18 Mcg Cap.W.Dev INHALE 2 puff RDAILY ÁLVARO Administration Vitamin D 50 mcg 02/28/21 09:00 03/12/21 08:37 Cholecalciferol (Vitamin D3) 25 Mcg Tablet PO 50 mcg DAILY ÁLVARO Administration Home Medications Medication Instructions Recorded Confirmed Last Taken Type Spiriva Respimat 2 puff PO DAILY 07/08/20 02/27/21 02/26/21 History amlodipine 1 tab PO DAILY 07/08/20 02/27/21 02/26/21 History ascorbic acid (vitamin C) 1,000 mg 1,000 mg PO DAILY 07/21/20 02/27/21 02/26/21 History tablet cholecalciferol (vitamin D3) 25 50 mcg PO DAILY cap 07/21/20 02/27/21 02/26/21 History mcg (1,000 unit) capsule famotidine 40 mg PO BEDTIME 02/10/21 02/27/21 02/26/21 History fluticasone propion-salmeterol 1 inh INHALATION BID 02/10/21 02/27/21 02/26/21 History [Advair Diskus] levalbuterol HCl [Xopenex] 1.25 mg INHALATION Q4H PRN 02/10/21 02/27/21 Unknown History propranolol 10 mg PO TID 02/10/21 02/27/21 02/26/21 History azithromycin 250 mg PO MOWEFR 02/27/21 02/27/21 02/26/21 History dicyclomine 10 mg PO TID 02/27/21 02/27/21 02/26/21 History multivitamin 1 tab PO DAILY 02/27/21 02/27/21 02/26/21 History Exam Exam Date and Time: March 13, 2021 0712 Height,Weight and Vital Signs: Height 5 ft 7 in Weight 81.647 kg Last Vital Signs Temp 97.4 F 03/13/21 06:27 Pulse 90 03/13/21 06:27 Resp 18 03/13/21 06:27 BP 139/83 03/13/21 06:27 Pulse Ox 98 03/13/21 06:27 Oxygen Flow Rate 2 02/27/21 07:49 Pertinent Lab Results Pertinent Lab Results: Laboratory Tests 02/27/21 02/27/21 02/27/21 09:02 09:02 09:02 WBC 10.5 RBC 5.65 Hgb 16.8 Hct 50.6 MCV 89.6 MCH 29.7 MCHC 33.2 RDW 12.5 Plt Count 271 MPV 8.7 L Immature Gran % (Auto) 0.4 Neut % (Auto) 64.5 Lymph % (Auto) 23.3 [place] % (Auto) 10.4 Eos % (Auto) 1.0 Baso % (Auto) 0.4 Lymph # (Auto) 2.4 [place] # (Auto) 1.1 Eos # (Auto) 0.1 Baso # (Auto) 0.0 Abs Immat Gran (auto) 0.04 H Absolute Neuts (auto) 6.8 Absolute Nucleated RBC 0.000 Nucleated RBC % (auto) 0.0 Sodium 140 Potassium 3.7 Chloride 102 Carbon Dioxide 28 Anion Gap 14 BUN 16 Creatinine 0.99 Estim Creat Clear Calc 81.3 Estimated GFR > 60 Random Glucose 85 Calcium 10.1 Total Bilirubin 0.9 AST 21 D ALT 25 Alkaline Phosphatase 51 Total Protein 7.8 Albumin 4.9 Urine Opiates Screen Not Detected Ur Barbiturates Screen Not Detected Valproic Acid Ur Phencyclidine Scrn Not Detected Ur Amphetamines Screen Not Detected U Benzodiazepines Scrn POSITIVE H Urine Cocaine Screen Not Detected U Marijuana (THC) Screen Not Detected Ethyl Alcohol COVID-19 (MARRY) COVID-Blog[employer] 02/27/21 02/27/21 03/03/21 09:02 16:46 07:25 WBC RBC Hgb Hct MCV MCH MCHC RDW Plt Count MPV Immature Gran % (Auto) Neut % (Auto) Lymph % (Auto) [place] % (Auto) Eos % (Auto) Baso % (Auto) Lymph # (Auto) [place] # (Auto) Eos # (Auto) Baso # (Auto) Abs Immat Gran (auto) Absolute Neuts (auto) Absolute Nucleated RBC Nucleated RBC % (auto) Sodium Potassium Chloride Carbon Dioxide Anion Gap BUN Creatinine Estim Creat Clear Calc Estimated GFR Random Glucose Calcium Total Bilirubin AST ALT Alkaline Phosphatase Total Protein Albumin Urine Opiates Screen Ur Barbiturates Screen Valproic Acid 25.3 L Ur Phencyclidine Scrn Ur Amphetamines Screen U Benzodiazepines Scrn Urine Cocaine Screen U Marijuana (THC) Screen Ethyl Alcohol < 10 COVID-19 (MARRY) Negative COVID-Blog[employer] See Note 03/06/21 10:22 WBC RBC Hgb Hct MCV MCH MCHC RDW Plt Count MPV Immature Gran % (Auto) Neut % (Auto) Lymph % (Auto) [place] % (Auto) Eos % (Auto) Baso % (Auto) Lymph # (Auto) [place] # (Auto) Eos # (Auto) Baso # (Auto) Abs Immat Gran (auto) Absolute Neuts (auto) Absolute Nucleated RBC Nucleated RBC % (auto) Sodium Potassium Chloride Carbon Dioxide Anion Gap BUN Creatinine Estim Creat Clear Calc Estimated GFR Random Glucose Calcium Total Bilirubin AST ALT Alkaline Phosphatase Total Protein Albumin Urine Opiates Screen Ur Barbiturates Screen Valproic Acid 24.9 L Ur Phencyclidine Scrn Ur Amphetamines Screen U Benzodiazepines Scrn Urine Cocaine Screen U Marijuana (THC) Screen Ethyl Alcohol COVID-19 (MARRY) COVID-19 Clin Com Airway Mallampati Class: IV TM Dist: >3cm Neck ROM: Full Denture: Upper Heart: RRR Lungs: CTA
[2021-03-13] MEDS: LORazepam 2 MG/ML VIAL 1 MG IVPUSH ×2 (07:17→08:13)
--- NOTE | 2021-03-13 07:17 | MHC.SHP ---
Pre-Procedural Eval Section A The patient is an INPATIENT: Yes Changes since office visit: Yes Cold of Flu in the past 2 weeks, Yes New Medical Problems, Yes Changes in Medication and Yes Patient answered all questions The History & Physical has been completed within 30 days and I have reviewed it.: Yes Section B Chief Complaint: Depression Allergies: Allergies Allergy/AdvReac Type Severity Reaction Status Date / Time lamotrigine [From LAMICTAL] Allergy Severe agitation Verified 02/23/21 16:08 and anxiety with titration codeine [CODEINE] Allergy Intermediate INSOMNIA Verified 02/23/21 16:08 Penicillins [PENICILLINS] Allergy Intermediate RASH Verified 02/23/21 16:08 epinephrine [EPINEPHRINE] AdvReac Intermediate Hypertensio Verified 02/23/21 16:08 n escitalopram [From LEXAPRO] AdvReac Intermediate NIGHTMARES Verified 02/23/21 16:08 sertraline [From ZOLOFT] AdvReac Intermediate NIGHTMARES Verified 02/23/21 16:08 sulfamethoxazole AdvReac Intermediate STOMACH Verified 02/23/21 16:08 [From BACTRIM] UPSET Plan I have reviewed the history and physical and performed a pertinent physical examination on my patient. No changes have occurred unless specified.
--- NOTE | 2021-03-13 07:38 | HO.ECTPROC ---
ECT Procedure Note Diagnosis/Treatment Date of Service: 03/13/21 Diagnosis: Major Depressive Disorder Previous ECT Date: 03/10/21 Current Treatment Number: 5 Interval Clinical Notes: The patient remains dysphoric and anxious. He needed to have Ativan 1 mg IVP at PACU due to his overwhelming anxiety. ECT Settings Device: THYMATRON DGx Electrode Placement: Bifrontal Program/Pulse Width: 0.50 Energy Percent: 100 Seizure Duration By EEG (in seconds): 45 By Motor Observation (in seconds): 37 Medications Administration General Anesthetic: Etomidate (14) and Propofol Muscle Relaxant: Succinylcholine (80) Ancillary Medications Analgesics: Torodol - Pre ECT Anti-emetics: Zofran - Pre ECT Miscillaneous Medications: Propofol, Midazolam and Flumazenil Airway Management Airway Management: Bag Mask Ventilation Treatment Recommendations No Changes Recommended: No change Pt Tolerated Procedure w/o Issue: Yes
[2021-03-13] MEDS: Dicyclomine HCl 10 MG CAPSULE 30 MG PO ×2 (09:57→21:30)
[2021-03-13] MEDS: Cholecalciferol (Vitamin D3) 25 MCG TABLET 50 MCG PO (09:57)
[2021-03-13] MEDS: Ascorbic Acid 500 MG TABLET 1000 MG PO (09:57)
[2021-03-13] MEDS: amLODIPine Besylate 10 MG TABLET PO (09:57)
[2021-03-13] MEDS: Multivitamin TABLET 1 TAB PO (09:57)
--- NOTE | 2021-03-13 10:13 | P.PNPSI_ITS ---
Subjective Subjective Date of Service: 03/13/21 Reason For Visit: Depression Interim History: The patient remains depressed with suicidal ideation (no plan or intent at this moment). He had ECT today AM without complications and he was extremely anxious that needed some Ativan pre-ECT with Flumazenil later to assure a good seizure. He is very anxious, unable to perform his regular acti vitiees, resting on his bed.. Medication Compliance: Yes Side effects from medications: No Attending Groups: No Review of Systems Acute medical concerns: No Medical Review of Systems: unchanged Mental Status Exam Mental Status Exam Patient Appearance: Disheveled (on hospital gowns) Patient Orientation: Person, Place, Time and Situation Level of Consciousness: Awake Patient Behavior: Cooperative Mood Description: Sad Affect Description: Constricted Patient Cognition Impaired: No Ability to Follow Directions: Good Speech Pattern: Clear Hallucinations: None Delusions: Not Present Thought Process: Linear Thought Content: positive for Poverty of Content Judgement: Fair Diagnostics Vital Signs (24Hr): Vital Signs - 24 hr 03/12/21 18:07 03/13/21 05:06 03/13/21 05:08 Temperature 97.9 F 97.7 F 97.7 F Pulse Rate 98 80 80 Respiratory Rate 16 16 Blood Pressure 113/68 108/61 108/61 Pulse Oximetry 96 92 92 03/13/21 06:27 03/13/21 08:00 03/13/21 08:05 Temperature 97.4 F 97.6 F Pulse Rate 90 110 H 131 H Respiratory Rate 18 17 17 Blood Pressure 139/83 154/78 H Pulse Oximetry 98 98 100 03/13/21 08:10 03/13/21 08:15 03/13/21 08:30 Temperature Pulse Rate 131 H 124 H 115 H Respiratory Rate 17 19 18 Blood Pressure 107/86 163/86 H 159/86 H Pulse Oximetry 96 97 95 03/13/21 09:57 Temperature Pulse Rate 99 Respiratory Rate Blood Pressure 116/71 Pulse Oximetry Body Mass Index 28.1 Labs Results: 02/27/21 09:02 02/27/21 09:02 Medications Medications Current Medications Generic Name Dose Route Start Last Admin Trade Name Freq PRN Reason Stop Dose Admin Acetaminophen 650 mg 02/27/21 19:42 03/04/21 13:18 Acetaminophen 325 Mg Tablet PO 650 mg Q6H PRN Administration Headache/Pain Mild Scale (1-3) Acetaminophen 650 mg 06/16/21 13:37 Acetaminophen 325 Mg Tablet PO ONCE PRN Pain, Mild (Pain Scale 1-3) Al Hydroxide/Mg Hydroxide 30 ml 02/27/21 19:42 03/12/21 19:58 Magnesium Hydrox/Alum Hydrox 30 Ml Oral.Susp PO 30 ml Q6H PRN Administration Heartburn/Nausea Albuterol Sulfate 2 puff 02/27/21 19:42 03/12/21 08:34 Albuterol Sulfate 90 Mcg 8 Gm Inhaler INHALE 2 puff Q4H PRN Administration Shortness Of Breath Amlodipine Besylate 10 mg 02/28/21 09:00 03/13/21 09:57 Amlodipine Besylate 10 Mg Tablet PO 10 mg DAILY ÁLVARO Administration Protocol Ascorbic Acid 1,000 mg 02/28/21 09:00 03/13/21 09:57 Ascorbic Acid 500 Mg Tablet PO 1,000 mg DAILY ÁLVARO Administration Dicyclomine HCl 30 mg 02/28/21 13:00 03/13/21 09:57 Dicyclomine Hcl 10 Mg Capsule PO 30 mg TID ÁLVARO Administration Famotidine 40 mg 02/27/21 21:00 03/12/21 19:58 Famotidine 20 Mg Tablet PO 40 mg BEDTIME ÁLVARO Administration Fluticasone/Vilanterol 1 puff 02/28/21 08:00 03/12/21 08:36 Fluticasone/Vilanterol 200/25 Blst.W.Dev INHALE 1 puff RDAILY ÁLVARO Administration Lorazepam 0.5 mg 03/12/21 17:00 03/12/21 21:38 Lorazepam 0.5 Mg Tablet PO Not Given QID ÁLVARO Lorazepam 0.5 mg 03/12/21 18:46 03/12/21 19:24 Lorazepam 0.5 Mg Tablet PO 0.5 mg Q6H PRN Administration anxiety/restlessness Magnesium Hydroxide 30 ml 02/27/21 19:42 Milk Of Magnesia 30 Ml Oral.Susp PO DAILY PRN Constipation Multivitamins/Vitamin C 1 tab 02/28/21 09:00 03/13/21 09:57 Multivitamin Tablet PO 1 tab DAILY ÁLVARO Administration Nicotine Polacrilex 4 mg 02/27/21 19:42 Nicotine Polacrilex 2 Mg Gum BUCCAL Q2H PRN Nicotine Cravings Nortriptyline HCl 10 mg 03/09/21 21:00 03/12/21 19:58 Nortriptyline Hcl 10 Mg Capsule PO 10 mg BEDTIME ÁLVARO Administration Ondansetron HCl 4 mg 03/08/21 13:37 Ondansetron Hcl 4 Mg/2 Ml Vial IVPUSH ONCE PRN Nausea and Vomiting Quetiapine Fumarate 12.5 mg 03/09/21 13:51 03/09/21 19:29 Quetiapine Fumarate 25 Mg Tablet PO 12.5 mg Q4H PRN Administration anxiety/restlessness Tiotropium [place] 2 puff 02/28/21 08:00 03/12/21 08:35 Tiotropium [place] 18 Mcg Cap.W.Dev INHALE 2 puff RDAILY ÁLVARO Administration Vitamin D 50 mcg 02/28/21 09:00 03/13/21 09:57 Cholecalciferol (Vitamin D3) 25 Mcg Tablet PO 50 mcg DAILY ÁLVARO Administration Allergies Allergies Allergy/AdvReac Type Severity Reaction Status Date / Time lamotrigine [From LAMICTAL] Allergy Severe agitation Verified 02/23/21 16:08 and anxiety with titration codeine [CODEINE] Allergy Intermediate INSOMNIA Verified 02/23/21 16:08 Penicillins [PENICILLINS] Allergy Intermediate RASH Verified 02/23/21 16:08 epinephrine [EPINEPHRINE] AdvReac Intermediate Hypertensio Verified 02/23/21 16:08 n escitalopram [From LEXAPRO] AdvReac Intermediate NIGHTMARES Verified 02/23/21 16:08 sertraline [From ZOLOFT] AdvReac Intermediate NIGHTMARES Verified 02/23/21 16:08 sulfamethoxazole AdvReac Intermediate STOMACH Verified 02/23/21 16:08 [From BACTRIM] UPSET Assessment & Plan Assessment & Plan (1) Preoperative cardiovascular examination: Status: Acute Code(s): Z01.810 - Encounter for preprocedural cardiovascular examination (2) CAD (coronary artery disease): Status: Acute Code(s): I25.10 - Atherosclerotic heart disease of [place] coronary artery without angina pectoris (3) Confusion with nonfocal neurological examination: Status: Acute Code(s): R41.0 - Disorientation, unspecified (4) Generalized anxiety disorder: Status: Acute Code(s): F41.1 - Generalized anxiety disorder (5) 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: Status: Acute Code(s): F40.01 - Agoraphobia with panic disorder (6) Major depressive disorder, recurrent episode, severe with anxious distress: Status: Acute Code(s): F33.2 - Major depressive disorder, recurrent severe without psychotic features Assessment and Plan: ECT change to bilateral given present fatigue and so far no response to treatment low-dose Depakote discontinued continue alprazolam will hold propranolol for now may be contributing to fatigue and depression Monitor response to treatment continue nortriptyline 10 mg at bedtime Greater than 50% of the session was spent on counseling and/or coordination of care Reason for contiued inpatient stay Substantial Risk for: harm to self, inability to function, rapid decompensation and med/psych decompensation
[2021-03-13] MEDS: Fluticasone/Vilanterol 200/25 BLST.W.DEV 1 PUFF INHALE (10:34)
--- NOTE | 2021-03-13 10:54 | HO.POSTANES ---
Post Anesthesia Evaluation Post Anesthesia Evaluation Vital Signs: Vital Signs Temp Pulse Resp BP Pulse Ox 03/13/21 09:57 99 116/71 03/13/21 08:30 115 H 18 159/86 H 95 03/13/21 08:15 124 H 19 163/86 H 97 03/13/21 08:10 131 H 17 107/86 96 03/13/21 08:05 131 H 17 100 03/13/21 08:00 97.6 F 110 H 17 154/78 H 98 03/13/21 06:27 97.4 F 90 18 139/83 98 03/13/21 05:08 97.7 F 80 16 108/61 92 03/13/21 05:06 97.7 F 80 16 108/61 92 Anesthesia: General Mental Status: Awake Pain Control: Satisfactory Nausea/Vomiting: None Hydration: Adequate Anesthesia-Related Issues: No Anes. Related Issues
[2021-03-13] MEDS: LORazepam 0.5 MG TABLET PO ×2 (16:38→21:30)
[2021-03-13] MEDS: Nortriptyline HCl 10 MG CAPSULE PO (21:29)
[2021-03-13] MEDS: Famotidine 20 MG TABLET 40 MG PO (21:29)
[2021-03-14 06:00] VITALS: BP 116/62; PULSE 88; RESP 16; TEMP 36.9; O2SAT 94
[2021-03-14] MEDS: LORazepam 0.5 MG TABLET PO ×4 (07:35→20:53)
[2021-03-14] MEDS: Multivitamin TABLET 1 TAB PO (07:56)
[2021-03-14] MEDS: Dicyclomine HCl 10 MG CAPSULE 30 MG PO ×3 (07:56→20:52)
[2021-03-14 07:57] VITALS: BP 118/81; PULSE 110
[2021-03-14] MEDS: amLODIPine Besylate 10 MG TABLET PO (07:57)
[2021-03-14] MEDS: Cholecalciferol (Vitamin D3) 25 MCG TABLET 50 MCG PO (07:57)
[2021-03-14] MEDS: Fluticasone/Vilanterol 200/25 BLST.W.DEV 1 PUFF INHALE (08:47)
[2021-03-14] MEDS: Ascorbic Acid 500 MG TABLET 1000 MG PO (10:08)
[2021-03-14 18:00] VITALS: BP 147/78; PULSE 103; RESP 16; TEMP 36.5; O2SAT 98
--- NOTE | 2021-03-14 18:28 | PC.NURSE ---
Pt has ECT scheduled on 03/15/21 as an add on please hold Ativan 10hrs prior to ECT . Pt took scheduled medications with no issues and pt received one prn of Ativan at 730am
[2021-03-14] MEDS: Famotidine 20 MG TABLET 40 MG PO (20:53)
[2021-03-14] MEDS: Nortriptyline HCl 10 MG CAPSULE PO (20:53)
--- NOTE | 2021-03-14 22:12 | P.PNPSI_ITS ---
Subjective Subjective Date of Service: 03/14/21 Reason For Visit: Depression Subjective Notes: Conditional Voluntary Interim History: Patient anxious depressed but some improvement noted. Patient seen with his partner and mother who are concerned patient will not continue treatment . They were able to take in information regarding ECT treatment Medication Compliance: Intermittent Side effects from medications: Yes Mental Status Exam Mental Status Exam Patient Appearance: Well Grooomed Patient Orientation: Person, Place, Time and Situation Level of Consciousness: Awake Patient Behavior: Cooperative Mood Description: Flat and Sad Affect Description: Constricted and Depressed Patient Cognition Impaired: No Ability to Follow Directions: Good Speech Pattern: Clear Hallucinations: None Delusions: Not Present Thought Process: Linear Thought Content: positive for Poverty of Content, negative for Suicidal Ideation and negative for Homicidal Ideation Depressive Symptoms: Increased Anxiety, Increased Fatigue, Loss of Energy and Difficulty Concentrating Judgement: Fair Diagnostics Vital Signs (24Hr): Vital Signs - 24 hr 03/14/21 06:00 03/14/21 07:57 03/14/21 18:00 Temperature 98.4 F 97.7 F Pulse Rate 88 110 H 103 H Respiratory Rate 16 16 Blood Pressure 116/62 118/81 147/78 H Pulse Oximetry 94 98 Body Mass Index 28.1 Labs Results: 02/27/21 09:02 02/27/21 09:02 Medications Medications Current Medications Generic Name Dose Route Start Last Admin Trade Name Freq PRN Reason Stop Dose Admin Acetaminophen 650 mg 02/27/21 19:42 03/04/21 13:18 Acetaminophen 325 Mg Tablet PO 650 mg Q6H PRN Administration Headache/Pain Mild Scale (1-3) Acetaminophen 650 mg 03/08/21 13:37 Acetaminophen 325 Mg Tablet PO ONCE PRN Pain, Mild (Pain Scale 1-3) Al Hydroxide/Mg Hydroxide 30 ml 02/27/21 19:42 03/12/21 19:58 Magnesium Hydrox/Alum Hydrox 30 Ml Oral.Susp PO 30 ml Q6H PRN Administration Heartburn/Nausea Albuterol Sulfate 2 puff 02/27/21 19:42 03/12/21 08:34 Albuterol Sulfate 90 Mcg 8 Gm Inhaler INHALE 2 puff Q4H PRN Administration Shortness Of Breath Amlodipine Besylate 10 mg 02/28/21 09:00 03/14/21 07:57 Amlodipine Besylate 10 Mg Tablet PO 10 mg DAILY ÁLVARO Administration Protocol Ascorbic Acid 1,000 mg 02/28/21 09:00 03/14/21 10:08 Ascorbic Acid 500 Mg Tablet PO 1,000 mg DAILY ÁLVARO Administration Dicyclomine HCl 30 mg 02/28/21 13:00 03/14/21 20:52 Dicyclomine Hcl 10 Mg Capsule PO 30 mg TID ÁLVARO Administration Famotidine 40 mg 02/27/21 21:00 03/14/21 20:53 Famotidine 20 Mg Tablet PO 40 mg BEDTIME ÁLVARO Administration Fluticasone/Vilanterol 1 puff 02/28/21 08:00 03/14/21 08:47 Fluticasone/Vilanterol 200/25 Blst.W.Dev INHALE 1 puff RDAILY ÁLVARO Administration Lorazepam 0.5 mg 03/12/21 17:00 03/14/21 20:53 Lorazepam 0.5 Mg Tablet PO 0.5 mg QID ÁLVARO Administration Lorazepam 0.5 mg 03/12/21 18:46 03/14/21 07:35 Lorazepam 0.5 Mg Tablet PO 0.5 mg Q6H PRN Administration anxiety/restlessness Magnesium Hydroxide 30 ml 02/27/21 19:42 Milk Of Magnesia 30 Ml Oral.Susp PO DAILY PRN Constipation Multivitamins/Vitamin C 1 tab 02/28/21 09:00 03/14/21 07:56 Multivitamin Tablet PO 1 tab DAILY ÁLVARO Administration Nicotine Polacrilex 4 mg 02/27/21 19:42 Nicotine Polacrilex 2 Mg Gum BUCCAL Q2H PRN Nicotine Cravings Nortriptyline HCl 10 mg 03/09/21 21:00 03/14/21 20:53 Nortriptyline Hcl 10 Mg Capsule PO 10 mg BEDTIME ÁLVARO Administration Ondansetron HCl 4 mg 03/08/21 13:37 Ondansetron Hcl 4 Mg/2 Ml Vial IVPUSH ONCE PRN Nausea and Vomiting Quetiapine Fumarate 12.5 mg 03/09/21 13:51 03/09/21 19:29 Quetiapine Fumarate 25 Mg Tablet PO 12.5 mg Q4H PRN Administration anxiety/restlessness Tiotropium [place] 2 puff 02/28/21 08:00 03/14/21 08:47 Tiotropium [place] 18 Mcg Cap.W.Dev INHALE 2 puff RDAILY ÁLVARO Administration Vitamin D 50 mcg 02/28/21 09:00 03/14/21 07:57 Cholecalciferol (Vitamin D3) 25 Mcg Tablet PO 50 mcg DAILY ÁLVARO Administration Allergies Allergies Allergy/AdvReac Type Severity Reaction Status Date / Time lamotrigine [From LAMICTAL] Allergy Severe agitation Verified 02/23/21 16:08 and anxiety with titration codeine [CODEINE] Allergy Intermediate INSOMNIA Verified 02/23/21 16:08 Penicillins [PENICILLINS] Allergy Intermediate RASH Verified 02/23/21 16:08 epinephrine [EPINEPHRINE] AdvReac Intermediate Hypertensio Verified 02/23/21 16:08 n escitalopram [From LEXAPRO] AdvReac Intermediate NIGHTMARES Verified 02/23/21 16:08 sertraline [From ZOLOFT] AdvReac Intermediate NIGHTMARES Verified 02/23/21 16:08 sulfamethoxazole AdvReac Intermediate STOMACH Verified 02/23/21 16:08 [From BACTRIM] UPSET Assessment & Plan Assessment & Plan (1) Preoperative cardiovascular examination: Status: Acute Code(s): Z01.810 - Encounter for preprocedural cardiovascular examination (2) CAD (coronary artery disease): Status: Acute Code(s): I25.10 - Atherosclerotic heart disease of [place] coronary artery without angina pectoris (3) Confusion with nonfocal neurological examination: Status: Acute Code(s): R41.0 - Disorientation, unspecified (4) Generalized anxiety disorder: Status: Acute Code(s): F41.1 - Generalized anxiety disorder (5) 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: Status: Acute Code(s): F40.01 - Agoraphobia with panic disorder (6) Major depressive disorder, recurrent episode, severe with anxious distress: Status: Acute Code(s): F33.2 - Major depressive disorder, recurrent severe without psychotic features Assessment and Plan: Continue ECT patient still not stable enough to do outpatient anxious ruminating needs continual support depressed remains hopeless helpless despondent ruminates regarding side effects constantly Greater than 50% of the session was spent on counseling and/or coordination of care Reason for contiued inpatient stay Substantial Risk for: harm to self, inability to function and rapid decompensation
[2021-03-15] VITALS (9 sets, daily range): BP systolic 114–166; BP diastolic 68–97; PULSE 80–115; RESP 16–18; TEMP 35.9–37.2; O2SAT 94–97; BMI 28.1
--- NOTE | 2021-03-15 07:09 | P.CONAN_ITS ---
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 (Acute) Pneumonitis (Acute) Major depressive disorder, recurrent episode, severe with anxious distress (Acute) Pre-op evaluation (Acute) Chronic respiratory failure (Acute) COPD (chronic obstructive pulmonary disease) (Acute) Preop cardiovascular exam (Acute) Depression (Acute) Smoking (Acute) HLD (hyperlipidemia) (Acute) Stented coronary artery (Acute) CAD (coronary artery disease) (Acute) Abnormal nuclear stress test (Acute) Past Medical History Medical History Abnormal nuclear stress test CAD (coronary artery disease) Chronic respiratory failure COPD (chronic obstructive pulmonary disease) Depression Generalized anxiety disorder HLD (hyperlipidemia) Major depressive disorder, recurrent episode, severe with anxious distress Pneumonitis Pre-op evaluation Preop cardiovascular exam Smoking Family History Family History Father No problems noted. Mother No problems noted. Surgical History Surgical History Stented coronary artery Social History Social History Household Members: Unknown / Unable to assess Housing: House Do you presently have visiting nurse or other home services: No Unable to assess alcohol history related to: Unknown Alcohol intake: never Patient Tobacco Use Status: Former Tobacco user Quit Date: 3 months ago Tobacco use type: Cigarette Years Smoked: 40 Smoked in Last 30 Days: No e-Cigarette/Vaping Use: Former Use Patient Interested in Nicotine Replacement: No Patient Given Instructions on How to Stop Smoking: No Second Hand Smoke Exposure: No Use of substances other than those prescribed or required for medical reasons: Unknown Currently Displaying Signs/Symptoms of Drug Intoxication Withdrawal: No Have you been hit, kicked, punched, or otherwise hurt by someone within the past year? If so, by whom?: No Do you feel safe in your current relationship?: No Is there a partner from a previous relationship who is making you feel unsafe now?: No Are you made to feel afraid or neglected: No Are you DNR?: No Advance Directives: No Advance Directives Information Provided: No Advance Directives on File: No Do you have thoughts of harming others: None Do you have a plan to hurt others: No Plan Recently lost weight without trying: Unsure Nutrition Risks: No Nutritional Risk Poor oral hygiene: No service: No Sexual orientation: Lesbian/Triana/Homosexual Meds Allergies Allergy/AdvReac Type Severity Reaction Status Date / Time lamotrigine [From LAMICTAL] Allergy Severe agitation Verified 02/23/21 16:08 and anxiety with titration codeine [CODEINE] Allergy Intermediate INSOMNIA Verified 02/23/21 16:08 Penicillins [PENICILLINS] Allergy Intermediate RASH Verified 02/23/21 16:08 epinephrine [EPINEPHRINE] AdvReac Intermediate Hypertensio Verified 02/23/21 16:08 n escitalopram [From LEXAPRO] AdvReac Intermediate NIGHTMARES Verified 02/23/21 16:08 sertraline [From ZOLOFT] AdvReac Intermediate NIGHTMARES Verified 02/23/21 16:08 sulfamethoxazole AdvReac Intermediate STOMACH Verified 02/23/21 16:08 [From BACTRIM] UPSET Active Medications: Current Medications Generic Name Dose Route Start Last Admin Trade Name Freq PRN Reason Stop Dose Admin Acetaminophen 650 mg 02/27/21 19:42 03/04/21 13:18 Acetaminophen 325 Mg Tablet PO 650 mg Q6H PRN Administration Headache/Pain Mild Scale (1-3) Acetaminophen 650 mg 03/08/21 13:37 Acetaminophen 325 Mg Tablet PO ONCE PRN Pain, Mild (Pain Scale 1-3) Al Hydroxide/Mg Hydroxide 30 ml 02/27/21 19:42 03/12/21 19:58 Magnesium Hydrox/Alum Hydrox 30 Ml Oral.Susp PO 30 ml Q6H PRN Administration Heartburn/Nausea Albuterol Sulfate 2 puff 02/27/21 19:42 03/12/21 08:34 Albuterol Sulfate 90 Mcg 8 Gm Inhaler INHALE 2 puff Q4H PRN Administration Shortness Of Breath Amlodipine Besylate 10 mg 02/28/21 09:00 03/14/21 07:57 Amlodipine Besylate 10 Mg Tablet PO 10 mg DAILY ÁLVARO Administration Protocol Ascorbic Acid 1,000 mg 02/28/21 09:00 03/14/21 10:08 Ascorbic Acid 500 Mg Tablet PO 1,000 mg DAILY ÁLVARO Administration Dicyclomine HCl 30 mg 02/28/21 13:00 03/14/21 20:52 Dicyclomine Hcl 10 Mg Capsule PO 30 mg TID ÁLVARO Administration Famotidine 40 mg 02/27/21 21:00 03/14/21 20:53 Famotidine 20 Mg Tablet PO 40 mg BEDTIME ÁLVARO Administration Fluticasone/Vilanterol 1 puff 02/28/21 08:00 03/14/21 08:47 Fluticasone/Vilanterol 200/25 Blst.W.Dev INHALE 1 puff RDAILY ÁLVARO Administration Lorazepam 0.5 mg 03/12/21 17:00 03/14/21 20:53 Lorazepam 0.5 Mg Tablet PO 0.5 mg QID ÁLVARO Administration Lorazepam 0.5 mg 03/12/21 18:46 03/14/21 07:35 Lorazepam 0.5 Mg Tablet PO 0.5 mg Q6H PRN Administration anxiety/restlessness Magnesium Hydroxide 30 ml 02/27/21 19:42 Milk Of Magnesia 30 Ml Oral.Susp PO DAILY PRN Constipation Multivitamins/Vitamin C 1 tab 02/28/21 09:00 03/14/21 07:56 Multivitamin Tablet PO 1 tab DAILY ÁLVARO Administration Nicotine Polacrilex 4 mg 02/27/21 19:42 Nicotine Polacrilex 2 Mg Gum BUCCAL Q2H PRN Nicotine Cravings Nortriptyline HCl 10 mg 03/09/21 21:00 03/14/21 20:53 Nortriptyline Hcl 10 Mg Capsule PO 10 mg BEDTIME ÁLVARO Administration Ondansetron HCl 4 mg 03/08/21 13:37 Ondansetron Hcl 4 Mg/2 Ml Vial IVPUSH ONCE PRN Nausea and Vomiting Quetiapine Fumarate 12.5 mg 03/09/21 13:51 03/09/21 19:29 Quetiapine Fumarate 25 Mg Tablet PO 12.5 mg Q4H PRN Administration anxiety/restlessness Tiotropium [place] 2 puff 02/28/21 08:00 03/14/21 08:47 Tiotropium [place] 18 Mcg Cap.W.Dev INHALE 2 puff RDAILY ÁLVARO Administration Vitamin D 50 mcg 02/28/21 09:00 03/14/21 07:57 Cholecalciferol (Vitamin D3) 25 Mcg Tablet PO 50 mcg DAILY ÁLVARO Administration Home Medications Medication Instructions Recorded Confirmed Last Taken Type Spiriva Respimat 2 puff PO DAILY 07/08/20 02/27/21 02/26/21 History amlodipine 1 tab PO DAILY 07/08/20 02/27/21 02/26/21 History ascorbic acid (vitamin C) 1,000 mg 1,000 mg PO DAILY 07/21/20 02/27/21 02/26/21 History tablet cholecalciferol (vitamin D3) 25 50 mcg PO DAILY cap 07/21/20 02/27/21 02/26/21 History mcg (1,000 unit) capsule famotidine 40 mg PO BEDTIME 02/10/21 02/27/21 02/26/21 History fluticasone propion-salmeterol 1 inh INHALATION BID 02/10/21 02/27/21 02/26/21 History [Advair Diskus] levalbuterol HCl [Xopenex] 1.25 mg INHALATION Q4H PRN 02/10/21 02/27/21 Unknown History propranolol 10 mg PO TID 02/10/21 02/27/21 02/26/21 History azithromycin 250 mg PO MOWEFR 02/27/21 02/27/21 02/26/21 History dicyclomine 10 mg PO TID 02/27/21 02/27/21 02/26/21 History multivitamin 1 tab PO DAILY 02/27/21 02/27/21 02/26/21 History Exam Exam Date and Time: March 15, 2021 0709 Height,Weight and Vital Signs: Height 5 ft 7 in Weight 81.647 kg Last Vital Signs Temp 97.7 F 03/15/21 06:43 Pulse 97 03/15/21 06:43 Resp 16 03/15/21 06:43 BP 137/84 03/15/21 06:43 Pulse Ox 94 03/15/21 06:43 Oxygen Flow Rate 2 02/27/21 07:49 Pertinent Lab Results Pertinent Lab Results: Laboratory Tests 02/27/21 02/27/21 02/27/21 09:02 09:02 09:02 WBC 10.5 RBC 5.65 Hgb 16.8 Hct 50.6 MCV 89.6 MCH 29.7 MCHC 33.2 RDW 12.5 Plt Count 271 MPV 8.7 L Immature Gran % (Auto) 0.4 Neut % (Auto) 64.5 Lymph % (Auto) 23.3 [place] % (Auto) 10.4 Eos % (Auto) 1.0 Baso % (Auto) 0.4 Lymph # (Auto) 2.4 [place] # (Auto) 1.1 Eos # (Auto) 0.1 Baso # (Auto) 0.0 Abs Immat Gran (auto) 0.04 H Absolute Neuts (auto) 6.8 Absolute Nucleated RBC 0.000 Nucleated RBC % (auto) 0.0 Sodium 140 Potassium 3.7 Chloride 102 Carbon Dioxide 28 Anion Gap 14 BUN 16 Creatinine 0.99 Estim Creat Clear Calc 81.3 Estimated GFR > 60 Random Glucose 85 Calcium 10.1 Total Bilirubin 0.9 AST 21 D ALT 25 Alkaline Phosphatase 51 Total Protein 7.8 Albumin 4.9 Urine Opiates Screen Not Detected Ur Barbiturates Screen Not Detected Valproic Acid Ur Phencyclidine Scrn Not Detected Ur Amphetamines Screen Not Detected U Benzodiazepines Scrn POSITIVE H Urine Cocaine Screen Not Detected U Marijuana (THC) Screen Not Detected Ethyl Alcohol COVID-19 ([facility]) [employer] 02/27/21 02/27/21 03/03/21 09:02 16:46 07:25 WBC RBC Hgb Hct MCV MCH MCHC RDW Plt Count MPV Immature Gran % (Auto) Neut % (Auto) Lymph % (Auto) [place] % (Auto) Eos % (Auto) Baso % (Auto) Lymph # (Auto) [place] # (Auto) Eos # (Auto) Baso # (Auto) Abs Immat Gran (auto) Absolute Neuts (auto) Absolute Nucleated RBC Nucleated RBC % (auto) Sodium Potassium Chloride Carbon Dioxide Anion Gap BUN Creatinine Estim Creat Clear Calc Estimated GFR Random Glucose Calcium Total Bilirubin AST ALT Alkaline Phosphatase Total Protein Albumin Urine Opiates Screen Ur Barbiturates Screen Valproic Acid 25.3 L Ur Phencyclidine Scrn Ur Amphetamines Screen U Benzodiazepines Scrn Urine Cocaine Screen U Marijuana (THC) Screen Ethyl Alcohol < 10 COVID-19 ([facility]) Negative COVID-[employer] See Note 03/06/21 10:22 WBC RBC Hgb Hct MCV MCH MCHC RDW Plt Count MPV Immature Gran % (Auto) Neut % (Auto) Lymph % (Auto) [place] % (Auto) Eos % (Auto) Baso % (Auto) Lymph # (Auto) [place] # (Auto) Eos # (Auto) Baso # (Auto) Abs Immat Gran (auto) Absolute Neuts (auto) Absolute Nucleated RBC Nucleated RBC % (auto) Sodium Potassium Chloride Carbon Dioxide Anion Gap BUN Creatinine Estim Creat Clear Calc Estimated GFR Random Glucose Calcium Total Bilirubin AST ALT Alkaline Phosphatase Total Protein Albumin Urine Opiates Screen Ur Barbiturates Screen Valproic Acid 24.9 L Ur Phencyclidine Scrn Ur Amphetamines Screen U Benzodiazepines Scrn Urine Cocaine Screen U Marijuana (THC) Screen Ethyl Alcohol COVID-19 ([facility]) COVID-19 Clin Com Airway Mallampati Class: III (Missing some nothing loose) TM Dist: >3cm Neck ROM: Full Heart: rrr Lungs: cta Assessment and Plan Assessment Anesthesia Assessment: Anesthesia Plan Discussed and Chart Reviewed Final Anesthetic Review NPO: Yes ASA Class: III Final Preanesthetic Review: No Changes in Pt Med Stat and Consent Obtained/Reviewed Patient Risk: Intermediate Procedure Risk: Intermediate Anesthetic Plan Anesthetic Plan: GA Disposition: Standard PACU
[2021-03-15] MEDS: Lactated Ringers 1,000 ML 50 ML IVCONT (07:37)
--- NOTE | 2021-03-15 08:02 | HO.ECTPROC ---
ECT Procedure Note Diagnosis/Treatment Date of Service: 03/15/21 Diagnosis: Major Depressive Disorder Previous ECT Date: 03/13/21 Current Treatment Number: 6 ECT Settings Device: THYMATRON DGx Electrode Placement: Bifrontal Program/Pulse Width: 0.50 Energy Percent: 100 Seizure Duration By EEG (in seconds): 46 Medications Administration General Anesthetic: Etomidate (14) Muscle Relaxant: Succinylcholine (80) Ancillary Medications Analgesics: Torodol - Pre ECT Anti-emetics: Zofran - Pre ECT Miscillaneous Medications: Other (lorazepam 2 mg post) Airway Management Airway Management: Bag Mask Ventilation Treatment Recommendations No Changes Recommended: No change Notes: did well with bf 0.5 previous trial Pt Tolerated Procedure w/o Issue: Yes
--- NOTE | 2021-03-15 09:04 | HO.PSYCHPN ---
Subjective Subjective Date of Service: 03/15/21 Reason For Visit: Depression Subjective Notes: Conditional Voluntary Healthcare Proxy: Yes Guardianship: No Interim History: Patient with some short-term memory difficulty but shows a much burnette range of affect Medication Compliance: Intermittent Mental Status Exam Mental Status Exam Patient Appearance: Well Grooomed Patient Orientation: Person, Place, Time and Situation Level of Consciousness: Awake Patient Behavior: Cooperative Mood Description: Flat and Sad Affect Description: Constricted and Depressed Patient Cognition Impaired: No Ability to Follow Directions: Good Speech Pattern: Clear Hallucinations: None Delusions: Not Present Thought Process: Linear Thought Content: positive for Poverty of Content, negative for Suicidal Ideation and negative for Homicidal Ideation Depressive Symptoms: Increased Anxiety, Increased Fatigue, Loss of Energy and Difficulty Concentrating Judgement: Fair Diagnostics Vital Signs (24Hr): Vital Signs - 24 hr 03/14/21 18:00 03/15/21 06:00 03/15/21 06:43 Temperature 97.7 F 98.9 F 97.7 F Pulse Rate 103 H 80 97 Respiratory Rate 16 16 16 Blood Pressure 147/78 H 114/68 137/84 Pulse Oximetry 98 95 94 03/15/21 08:21 03/15/21 08:26 03/15/21 08:31 Temperature 98.4 F Pulse Rate 115 H 113 H 113 H Respiratory Rate 16 16 16 Blood Pressure 166/88 H 137/96 H 130/97 H Pulse Oximetry 96 96 96 03/15/21 08:36 Temperature 98.4 F Pulse Rate 110 H Respiratory Rate 16 Blood Pressure 150/97 H Pulse Oximetry 96 Body Mass Index 28.1 Labs Results: 02/27/21 09:02 02/27/21 09:02 Medications Medications Current Medications Generic Name Dose Route Start Last Admin Trade Name Freq PRN Reason Stop Dose Admin Acetaminophen 650 mg 02/27/21 19:42 03/04/21 13:18 Acetaminophen 325 Mg Tablet PO 650 mg Q6H PRN Administration Headache/Pain Mild Scale (1-3) Acetaminophen 650 mg 03/08/21 13:37 Acetaminophen 325 Mg Tablet PO ONCE PRN Pain, Mild (Pain Scale 1-3) Al Hydroxide/Mg Hydroxide 30 ml 02/27/21 19:42 03/12/21 19:58 Magnesium Hydrox/Alum Hydrox 30 Ml Oral.Susp PO 30 ml Q6H PRN Administration Heartburn/Nausea Albuterol Sulfate 2 puff 02/27/21 19:42 03/12/21 08:34 Albuterol Sulfate 90 Mcg 8 Gm Inhaler INHALE 2 puff Q4H PRN Administration Shortness Of Breath Amlodipine Besylate 10 mg 02/28/21 09:00 03/14/21 07:57 Amlodipine Besylate 10 Mg Tablet PO 10 mg DAILY ÁLVARO Administration Protocol Ascorbic Acid 1,000 mg 02/28/21 09:00 03/14/21 10:08 Ascorbic Acid 500 Mg Tablet PO 1,000 mg DAILY ÁLVARO Administration Dicyclomine HCl 30 mg 02/28/21 13:00 03/14/21 20:52 Dicyclomine Hcl 10 Mg Capsule PO 30 mg TID ÁLVARO Administration Famotidine 40 mg 02/27/21 21:00 03/14/21 20:53 Famotidine 20 Mg Tablet PO 40 mg BEDTIME ÁLVARO Administration Fluticasone/Vilanterol 1 puff 02/28/21 08:00 03/14/21 08:47 Fluticasone/Vilanterol 200/25 Blst.W.Dev INHALE 1 puff RDAILY ÁLVARO Administration Lactated Ringer's 1,000 mls @ 50 mls/hr 03/15/21 07:15 03/15/21 07:37 Lr IVCONT 50 mls/hr .Q20H ÁLVARO Administration Lorazepam 0.5 mg 03/12/21 17:00 03/14/21 20:53 Lorazepam 0.5 Mg Tablet PO 0.5 mg QID ÁLVARO Administration Lorazepam 0.5 mg 03/12/21 18:46 03/14/21 07:35 Lorazepam 0.5 Mg Tablet PO 0.5 mg Q6H PRN Administration anxiety/restlessness Magnesium Hydroxide 30 ml 02/27/21 19:42 Milk Of Magnesia 30 Ml Oral.Susp PO DAILY PRN Constipation Multivitamins/Vitamin C 1 tab 02/28/21 09:00 03/14/21 07:56 Multivitamin Tablet PO 1 tab DAILY ÁLVARO Administration Nicotine Polacrilex 4 mg 02/27/21 19:42 Nicotine Polacrilex 2 Mg Gum BUCCAL Q2H PRN Nicotine Cravings Nortriptyline HCl 10 mg 03/09/21 21:00 03/14/21 20:53 Nortriptyline Hcl 10 Mg Capsule PO 10 mg BEDTIME ÁLVARO Administration Ondansetron HCl 4 mg 03/08/21 13:37 Ondansetron Hcl 4 Mg/2 Ml Vial IVPUSH ONCE PRN Nausea and Vomiting Quetiapine Fumarate 12.5 mg 03/09/21 13:51 03/09/21 19:29 Quetiapine Fumarate 25 Mg Tablet PO 12.5 mg Q4H PRN Administration anxiety/restlessness Tiotropium [place] 2 puff 02/28/21 08:00 03/14/21 08:47 Tiotropium [place] 18 Mcg Cap.W.Dev INHALE 2 puff RDAILY ÁLVARO Administration Vitamin D 50 mcg 02/28/21 09:00 03/14/21 07:57 Cholecalciferol (Vitamin D3) 25 Mcg Tablet PO 50 mcg DAILY ÁLVARO Administration Allergies Allergies Allergy/AdvReac Type Severity Reaction Status Date / Time lamotrigine [From LAMICTAL] Allergy Severe agitation Verified 02/23/21 16:08 and anxiety with titration codeine [CODEINE] Allergy Intermediate INSOMNIA Verified 02/23/21 16:08 Penicillins [PENICILLINS] Allergy Intermediate RASH Verified 02/23/21 16:08 epinephrine [EPINEPHRINE] AdvReac Intermediate Hypertensio Verified 02/23/21 16:08 n escitalopram [From LEXAPRO] AdvReac Intermediate NIGHTMARES Verified 02/23/21 16:08 sertraline [From ZOLOFT] AdvReac Intermediate NIGHTMARES Verified 02/23/21 16:08 sulfamethoxazole AdvReac Intermediate STOMACH Verified 02/23/21 16:08 [From BACTRIM] UPSET Assessment & Plan Assessment & Plan (1) Preoperative cardiovascular examination: Status: Acute Code(s): Z01.810 - Encounter for preprocedural cardiovascular examination (2) CAD (coronary artery disease): Status: Acute Code(s): I25.10 - Atherosclerotic heart disease of [place] coronary artery without angina pectoris (3) Confusion with nonfocal neurological examination: Status: Acute Code(s): R41.0 - Disorientation, unspecified (4) Generalized anxiety disorder: Status: Acute Code(s): F41.1 - Generalized anxiety disorder (5) 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
[2021-03-15] MEDS: Dicyclomine HCl 10 MG CAPSULE 30 MG PO ×3 (12:40→20:00)
[2021-03-15] MEDS: Multivitamin TABLET 1 TAB PO (12:41)
[2021-03-15] MEDS: Cholecalciferol (Vitamin D3) 25 MCG TABLET 50 MCG PO (12:41)
[2021-03-15] MEDS: amLODIPine Besylate 10 MG TABLET PO (12:43)
[2021-03-15] MEDS: Ascorbic Acid 500 MG TABLET 1000 MG PO (12:43)
[2021-03-15] MEDS: Fluticasone/Vilanterol 200/25 BLST.W.DEV 1 PUFF INHALE (12:58)
--- NOTE | 2021-03-15 16:12 | PC.NURSE ---
Pt engaged in individual intervention with this real estate underwriter. Pt noted to be anxious, depressed, participated in coping/leisure activity exploration, encouraged to be more visible in unit and engage in unit activities. Pt agreed to fresh air break tomorrow.
[2021-03-15] MEDS: LORazepam 0.5 MG TABLET PO ×2 (17:11→20:00)
[2021-03-15] MEDS: Nortriptyline HCl 10 MG CAPSULE PO (20:00)
[2021-03-15] MEDS: Famotidine 20 MG TABLET 40 MG PO (20:00)
[2021-03-16 06:00] VITALS: BP 118/72; PULSE 92; RESP 16; TEMP 36.7; O2SAT 95
[2021-03-16 07:00] VITALS: BMI 28.0
[2021-03-16 08:14] VITALS: BP 131/82; PULSE 104
[2021-03-16] MEDS: amLODIPine Besylate 10 MG TABLET PO (08:14)
[2021-03-16] MEDS: Cholecalciferol (Vitamin D3) 25 MCG TABLET 50 MCG PO (08:14)
[2021-03-16] MEDS: Fluticasone/Vilanterol 200/25 BLST.W.DEV 1 PUFF INHALE (08:14)
[2021-03-16] MEDS: Albuterol Sulfate 90 MCG 8 GM INHALER 2 PUFF INHALE ×3 (08:14→18:56)
[2021-03-16] MEDS: LORazepam 0.5 MG TABLET PO ×4 (08:15→18:24)
[2021-03-16] MEDS: Dicyclomine HCl 10 MG CAPSULE 30 MG PO ×3 (08:16→22:33)
[2021-03-16] MEDS: Multivitamin TABLET 1 TAB PO (08:16)
[2021-03-16] MEDS: Ascorbic Acid 500 MG TABLET 1000 MG PO (08:16)
--- NOTE | 2021-03-16 12:49 | P.PNPSI_ITS ---
Subjective Subjective Date of Service: 03/16/21 Reason For Visit: Depression Subjective Notes: Conditional Voluntary Interim History: Patient seen in psychiatric follow-up. His a much burnette range of affect but somewhat cognitively slowed nose place month time home address but clearly slowed mentation Medication Compliance: Yes Mental Status Exam Mental Status Exam Narrative: Full affect Patient Appearance: Well Grooomed Patient Orientation: Person, Place, Time and Situation Level of Consciousness: Awake Patient Behavior: Cooperative Mood Description: Withdrawn and Blunted Affect Description: Constricted and Depressed Patient Cognition Impaired: No Ability to Follow Directions: Good Speech Pattern: Clear Hallucinations: None Delusions: Not Present Thought Process: Linear Thought Content: positive for Poverty of Content, negative for Suicidal Ideation and negative for Homicidal Ideation Depressive Symptoms: Increased Anxiety, Increased Fatigue, Loss of Energy and Difficulty Concentrating Judgement: Fair Diagnostics Vital Signs (24Hr): Vital Signs - 24 hr 03/15/21 18:40 03/16/21 06:00 03/16/21 08:14 Temperature 96.6 F L 98.1 F Pulse Rate 96 92 104 H Respiratory Rate 16 Blood Pressure 121/72 118/72 131/82 Pulse Oximetry 97 95 Body Mass Index 28.0 Labs Results: 02/27/21 09:02 02/27/21 09:02 Medications Medications Current Medications Generic Name Dose Route Start Last Admin Trade Name Freq PRN Reason Stop Dose Admin Acetaminophen 650 mg 02/27/21 19:42 03/04/21 13:18 Acetaminophen 325 Mg Tablet PO 650 mg Q6H PRN Administration Headache/Pain Mild Scale (1-3) Acetaminophen 650 mg 03/08/21 13:37 Acetaminophen 325 Mg Tablet PO ONCE PRN Pain, Mild (Pain Scale 1-3) Al Hydroxide/Mg Hydroxide 30 ml 02/27/21 19:42 03/12/21 19:58 Magnesium Hydrox/Alum Hydrox 30 Ml Oral.Susp PO 30 ml Q6H PRN Administration Heartburn/Nausea Albuterol Sulfate 2 puff 02/27/21 19:42 03/16/21 08:14 Albuterol Sulfate 90 Mcg 8 Gm Inhaler INHALE 2 puff Q4H PRN Administration Shortness Of Breath Amlodipine Besylate 10 mg 02/28/21 09:00 03/16/21 08:14 Amlodipine Besylate 10 Mg Tablet PO 10 mg DAILY ÁLVARO Administration Protocol Ascorbic Acid 1,000 mg 02/28/21 09:00 03/16/21 08:16 Ascorbic Acid 500 Mg Tablet PO 1,000 mg DAILY ÁLVARO Administration Dicyclomine HCl 30 mg 02/28/21 13:00 03/16/21 08:16 Dicyclomine Hcl 10 Mg Capsule PO 30 mg TID ÁLVARO Administration Famotidine 40 mg 02/27/21 21:00 03/15/21 20:00 Famotidine 20 Mg Tablet PO 40 mg BEDTIME ÁLVARO Administration Fluticasone/Vilanterol 1 puff 02/28/21 08:00 03/16/21 08:14 Fluticasone/Vilanterol 200/25 Blst.W.Dev INHALE 1 puff RDAILY ÁLVARO Administration Lactated Ringer's 1,000 mls @ 50 mls/hr 03/15/21 07:15 03/16/21 05:49 Lr IVCONT Not Given .Q20H ÁLVARO Lorazepam 0.5 mg 03/12/21 17:00 03/16/21 08:15 Lorazepam 0.5 Mg Tablet PO 0.5 mg QID ÁLVARO Administration Lorazepam 0.5 mg 03/12/21 18:46 03/16/21 11:45 Lorazepam 0.5 Mg Tablet PO 0.5 mg Q6H PRN Administration anxiety/restlessness Magnesium Hydroxide 30 ml 02/27/21 19:42 Milk Of Magnesia 30 Ml Oral.Susp PO DAILY PRN Constipation Multivitamins/Vitamin C 1 tab 02/28/21 09:00 03/16/21 08:16 Multivitamin Tablet PO 1 tab DAILY ÁLVARO Administration Nicotine Polacrilex 4 mg 02/27/21 19:42 Nicotine Polacrilex 2 Mg Gum BUCCAL Q2H PRN Nicotine Cravings Nortriptyline HCl 10 mg 03/09/21 21:00 03/15/21 20:00 Nortriptyline Hcl 10 Mg Capsule PO 10 mg BEDTIME ÁLVARO Administration Ondansetron HCl 4 mg 03/08/21 13:37 Ondansetron Hcl 4 Mg/2 Ml Vial IVPUSH ONCE PRN Nausea and Vomiting Quetiapine Fumarate 12.5 mg 03/09/21 13:51 03/09/21 19:29 Quetiapine Fumarate 25 Mg Tablet PO 12.5 mg Q4H PRN Administration anxiety/restlessness Tiotropium [place] 2 puff 02/28/21 08:00 03/16/21 10:24 Tiotropium [place] 18 Mcg Cap.W.Dev INHALE 2 puff RDAILY ÁLVARO Administration Vitamin D 50 mcg 02/28/21 09:00 03/16/21 08:14 Cholecalciferol (Vitamin D3) 25 Mcg Tablet PO 50 mcg DAILY ÁLVARO Administration Allergies Allergies Allergy/AdvReac Type Severity Reaction Status Date / Time lamotrigine [From LAMICTAL] Allergy Severe agitation Verified 02/23/21 16:08 and anxiety with titration codeine [CODEINE] Allergy Intermediate INSOMNIA Verified 02/23/21 16:08 Penicillins [PENICILLINS] Allergy Intermediate RASH Verified 02/23/21 16:08 epinephrine [EPINEPHRINE] AdvReac Intermediate Hypertensio Verified 02/23/21 16:08 n escitalopram [From LEXAPRO] AdvReac Intermediate NIGHTMARES Verified 02/23/21 1 6:08 sertraline [From ZOLOFT] AdvReac Intermediate NIGHTMARES Verified 02/23/21 16:08 sulfamethoxazole AdvReac Intermediate STOMACH Verified 02/23/21 16:08 [From BACTRIM] UPSET Assessment & Plan Assessment & Plan (1) Preoperative cardiovascular examination: Status: Acute Code(s): Z01.810 - Encounter for preprocedural cardiovascular examination (2) CAD (coronary artery disease): Status: Acute Code(s): I25.10 - Atherosclerotic heart disease of [place] coronary artery without angina pectoris (3) Confusion with nonfocal neurological examination: Status: Acute Code(s): R41.0 - Disorientation, unspecified (4) Generalized anxiety disorder: Status: Acute Code(s): F41.1 - Generalized anxiety disorder (5) 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
--- NOTE | 2021-03-16 16:08 | PC.NURSE ---
Pt guarded, depressed, flat, participated in fresh air porch. Pt required encouragement to converse with peers, pt stated feeling very tired
[2021-03-16 18:00] VITALS: PULSE 111; RESP 16; TEMP 37.1; O2SAT 96
--- NOTE | 2021-03-16 18:59 | PC.NURSE ---
Pt has ECT scheduled on 03/16/21 at 8am please hold Ativan 10hrs prior to ECT . Pt took scheduled medications with no issues and pt received one prn of Ativan at 1145a and also Pt is slightly forgetful today
[2021-03-16] MEDS: Nortriptyline HCl 10 MG CAPSULE PO (22:34)
[2021-03-16] MEDS: Famotidine 20 MG TABLET 40 MG PO (22:34)
[2021-03-17 06:14] VITALS: BP 147/81; PULSE 97; TEMP 36.7; O2SAT 96
--- NOTE | 2021-03-17 06:17 | PC.NURSE ---
has remained npo for sleep.
[2021-03-17 06:21] VITALS: BP 147/81; PULSE 97; RESP 14; TEMP 36.7; O2SAT 96
[2021-03-17] MEDS: Albuterol Sulfate 90 MCG 8 GM INHALER 2 PUFF INHALE ×2 (06:32→17:48)
--- NOTE | 2021-03-17 07:02 | HO.ANESPROP2 ---
[facility] Active Problems Active Problems: All Active Problems (Updated 03/02/21 @ 09:13 by Servando Puga MD) Preoperative cardiovascular examination (Acute) Confusion with nonfocal neurological examination (Acute) Generalized anxiety disorder (Acute) 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 (Acute) Pneumonitis (Acute) Major depressive disorder, recurrent episode, severe with anxious distress (Acute) Pre-op evaluation (Acute) Chronic respiratory failure (Acute) COPD (chronic obstructive pulmonary disease) (Acute) Preop cardiovascular exam (Acute) Depression (Acute) Smoking (Acute) HLD (hyperlipidemia) (Acute) Stented coronary artery (Acute) CAD (coronary artery disease) (Acute) Abnormal nuclear stress test (Acute) Past Medical History Medical History Abnormal nuclear stress test CAD (coronary artery disease) Chronic respiratory failure COPD (chronic obstructive pulmonary disease) Depression Generalized anxiety disorder HLD (hyperlipidemia) Major depressive disorder, recurrent episode, severe with anxious distress Pneumonitis Pre-op evaluation Preop cardiovascular exam Smoking Family History Family History Father No problems noted. Mother No problems noted. Surgical History Surgical History Stented coronary artery Social History Social History Household Members: Unknown / Unable to assess Housing: House Do you presently have visiting nurse or other home services: No Unable to assess alcohol history related to: Unknown Alcohol intake: never Patient Tobacco Use Status: Former Tobacco user Quit Date: 3 months ago Tobacco use type: Cigarette Years Smoked: 40 Smoked in Last 30 Days: No e-Cigarette/Vaping Use: Former Use Patient Interested in Nicotine Replacement: No Patient Given Instructions on How to Stop Smoking: No Second Hand Smoke Exposure: No Use of substances other than those prescribed or required for medical reasons: Unknown Currently Displaying Signs/Symptoms of Drug Intoxication Withdrawal: No Have you been hit, kicked, punched, or otherwise hurt by someone within the past year? If so, by whom?: No Do you feel safe in your current relationship?: No Is there a partner from a previous relationship who is making you feel unsafe now?: No Are you made to feel afraid or neglected: No Are you DNR?: No Advance Directives: No Advance Directives Information Provided: No Advance Directives on File: No Do you have thoughts of harming others: None Do you have a plan to hurt others: No Plan Recently lost weight without trying: Unsure Nutrition Risks: No Nutritional Risk Poor oral hygiene: No service: No Sexual orientation: Lesbian/Triana/Homosexual Meds Allergies Allergy/AdvReac Type Severity Reaction Status Date / Time lamotrigine [From LAMICTAL] Allergy Severe agitation Verified 02/23/21 16:08 and anxiety with titration codeine [CODEINE] Allergy Intermediate INSOMNIA Verified 02/23/21 16:08 Penicillins [PENICILLINS] Allergy Intermediate RASH Verified 02/23/21 16:08 epinephrine [EPINEPHRINE] AdvReac Intermediate Hypertensio Verified 02/23/21 16:08 n escitalopram [From LEXAPRO] AdvReac Intermediate NIGHTMARES Verified 02/23/21 16:08 sertraline [From ZOLOFT] AdvReac Intermediate NIGHTMARES Verified 02/23/21 16:08 sulfamethoxazole AdvReac Intermediate STOMACH Verified 02/23/21 16:08 [From BACTRIM] UPSET Active Medications: Current Medications Generic Name Dose Route Start Last Admin Trade Name Freq PRN Reason Stop Dose Admin Acetaminophen 650 mg 02/27/21 19:42 03/04/21 13:18 Acetaminophen 325 Mg Tablet PO 650 mg Q6H PRN Administration Headache/Pain Mild Scale (1-3) Acetaminophen 650 mg 03/08/21 13:37 Acetaminophen 325 Mg Tablet PO ONCE PRN Pain, Mild (Pain Scale 1-3) Al Hydroxide/Mg Hydroxide 30 ml 02/27/21 19:42 03/12/21 19:58 Magnesium Hydrox/Alum Hydrox 30 Ml Oral.Susp PO 30 ml Q6H PRN Administration Heartburn/Nausea Albuterol Sulfate 2 puff 02/27/21 19:42 03/17/21 06:32 Albuterol Sulfate 90 Mcg 8 Gm Inhaler INHALE 2 puff Q4H PRN Administration Shortness Of Breath Amlodipine Besylate 10 mg 02/28/21 09:00 03/16/21 08:14 Amlodipine Besylate 10 Mg Tablet PO 10 mg DAILY ÁLVARO Administration Protocol Ascorbic Acid 1,000 mg 02/28/21 09:00 03/16/21 08:16 Ascorbic Acid 500 Mg Tablet PO 1,000 mg DAILY ÁLVARO Administration Dicyclomine HCl 30 mg 02/28/21 13:00 03/16/21 22:33 Dicyclomine Hcl 10 Mg Capsule PO 30 mg TID ÁLVARO Administration Famotidine 40 mg 02/27/21 21:00 03/16/21 22:34 Famotidine 20 Mg Tablet PO 40 mg BEDTIME ÁLVARO Administration Fluticasone/Vilanterol 1 puff 02/28/21 08:00 03/16/21 08:14 Fluticasone/Vilanterol 200/25 Blst.W.Dev INHALE 1 puff RDAILY ÁLVARO Administration Lactated Ringer's 1,000 mls @ 50 mls/hr 03/15/21 07:15 03/16/21 23:27 Lr IVCONT Not Given .Q20H ÁLVARO Lorazepam 0.5 mg 03/12/21 17:00 03/16/21 22:35 Lorazepam 0.5 Mg Tablet PO Not Given QID ÁLVARO Lorazepam 0.5 mg 03/12/21 18:46 03/16/21 11:45 Lorazepam 0.5 Mg Tablet PO 0.5 mg Q6H PRN Administration anxiety/restlessness Magnesium Hydroxide 30 ml 02/27/21 19:42 Milk Of Magnesia 30 Ml Oral.Susp PO DAILY PRN Constipation Multivitamins/Vitamin C 1 tab 02/28/21 09:00 03/16/21 08:16 Multivitamin Tablet PO 1 tab DAILY ÁLVARO Administration Nicotine Polacrilex 4 mg 02/27/21 19:42 Nicotine Polacrilex 2 Mg Gum BUCCAL Q2H PRN Nicotine Cravings Nortriptyline HCl 10 mg 03/09/21 21:00 03/16/21 22:34 Nortriptyline Hcl 10 Mg Capsule PO 10 mg BEDTIME ÁLVARO Administration Ondansetron HCl 4 mg 03/08/21 13:37 Ondansetron Hcl 4 Mg/2 Ml Vial IVPUSH ONCE PRN Nausea and Vomiting Quetiapine Fumarate 12.5 mg 03/09/21 13:51 03/09/21 19:29 Quetiapine Fumarate 25 Mg Tablet PO 12.5 mg Q4H PRN Administration anxiety/restlessness Tiotropium [place] 2 puff 02/28/21 08:00 03/16/21 10:24 Tiotropium [place] 18 Mcg Cap.W.Dev INHALE 2 puff RDAILY ÁLVARO Administration Vitamin D 50 mcg 02/28/21 09:00 03/16/21 08:14 Cholecalciferol (Vitamin D3) 25 Mcg Tablet PO 50 mcg DAILY [facility] Administration Home Medications Medication Instructions Recorded Confirmed Last Taken Type Spiriva Respimat 2 puff PO DAILY 07/08/20 02/27/21 02/26/21 History amlodipine 1 tab PO DAILY 07/08/20 02/27/21 02/26/21 History ascorbic acid (vitamin C) 1,000 mg 1,000 mg PO DAILY 07/21/20 02/27/21 02/26/21 History tablet cholecalciferol (vitamin D3) 25 50 mcg PO DAILY cap 07/21/20 02/27/21 02/26/21 History mcg (1,000 unit) capsule famotidine 40 mg PO BEDTIME 02/10/21 02/27/21 02/26/21 History fluticasone propion-salmeterol 1 inh INHALATION BID 02/10/21 02/27/21 02/26/21 History [Advair Diskus] levalbuterol HCl [Xopenex] 1.25 mg INHALATION Q4H PRN 02/10/21 02/27/21 Unknown History propranolol 10 mg PO TID 02/10/21 02/27/21 02/26/21 History azithromycin 250 mg PO MOWEFR 02/27/21 02/27/21 02/26/21 History dicyclomine 10 mg PO TID 02/27/21 02/27/21 02/26/21 History multivitamin 1 tab PO DAILY 02/27/21 02/27/21 02/26/21 History Exam Exam Date and Time: March 17, 2021 0702 Height,Weight and Vital Signs: Height 5 ft 7 in Weight 81.193 kg Last Vital Signs Temp 98.1 F 03/17/21 06:21 Pulse 97 03/17/21 06:21 Resp 14 03/17/21 06:21 BP 147/81 H 03/17/21 06:21 Pulse Ox 96 03/17/21 06:21 Oxygen Flow Rate 2 02/27/21 07:49 Pertinent Lab Results Pertinent Lab Results: Laboratory Tests 02/27/21 02/27/21 02/27/21 09:02 09:02 09:02 WBC 10.5 RBC 5.65 Hgb 16.8 Hct 50.6 MCV 89.6 MCH 29.7 MCHC 33.2 RDW 12.5 Plt Count 271 MPV 8.7 L Immature Gran % (Auto) 0.4 Neut % (Auto) 64.5 Lymph % (Auto) 23.3 [place] % (Auto) 10.4 Eos % (Auto) 1.0 Baso % (Auto) 0.4 Lymph # (Auto) 2.4 [place] # (Auto) 1.1 Eos # (Auto) 0.1 Baso # (Auto) 0.0 Abs Immat Gran (auto) 0.04 H Absolute Neuts (auto) 6.8 Absolute Nucleated RBC 0.000 Nucleated RBC % (auto) 0.0 Sodium 140 Potassium 3.7 Chloride 102 Carbon Dioxide 28 Anion Gap 14 BUN 16 Creatinine 0.99 Estim Creat Clear Calc 81.3 Estimated GFR > 60 Random Glucose 85 Calcium 10.1 Total Bilirubin 0.9 AST 21 D ALT 25 Alkaline Phosphatase 51 Total Protein 7.8 Albumin 4.9 Urine Opiates Screen Not Detected Ur Barbiturates Screen Not Detected Valproic Acid Ur Phencyclidine Scrn Not Detected Ur Amphetamines Screen Not Detected U Benzodiazepines Scrn POSITIVE H Urine Cocaine Screen Not Detected U Marijuana (THC) Screen Not Detected Ethyl Alcohol COVID-19 (MARRY) COVID-Dinos Rule 02/27/21 02/27/21 03/03/21 09:02 16:46 07:25 WBC RBC Hgb Hct MCV MCH MCHC RDW Plt Count MPV Immature Gran % (Auto) Neut % (Auto) Lymph % (Auto) [place] % (Auto) Eos % (Auto) Baso % (Auto) Lymph # (Auto) [place] # (Auto) Eos # (Auto) Baso # (Auto) Abs Immat Gran (auto) Absolute Neuts (auto) Absolute Nucleated RBC Nucleated RBC % (auto) Sodium Potassium Chloride Carbon Dioxide Anion Gap BUN Creatinine Estim Creat Clear Calc Estimated GFR Random Glucose Calcium Total Bilirubin AST ALT Alkaline Phosphatase Total Protein Albumin Urine Opiates Screen Ur Barbiturates Screen Valproic Acid 25.3 L Ur Phencyclidine Scrn Ur Amphetamines Screen U Benzodiazepines Scrn Urine Cocaine Screen U Marijuana (THC) Screen Ethyl Alcohol < 10 COVID-19 (MARRY) Negative COVID-Dinos Rule See Note 03/06/21 10:22 WBC RBC Hgb Hct MCV MCH MCHC RDW Plt Count MPV Immature Gran % (Auto) Neut % (Auto) Lymph % (Auto) [place] % (Auto) Eos % (Auto) Baso % (Auto) Lymph # (Auto) [place] # (Auto) Eos # (Auto) Baso # (Auto) Abs Immat Gran (auto) Absolute Neuts (auto) Absolute Nucleated RBC Nucleated RBC % (auto) Sodium Potassium Chloride Carbon Dioxide Anion Gap BUN Creatinine Estim Creat Clear Calc Estimated GFR Random Glucose Calcium Total Bilirubin AST ALT Alkaline Phosphatase Total Protein Albumin Urine Opiates Screen Ur Barbiturates Screen Valproic Acid 24.9 L Ur Phencyclidine Scrn Ur Amphetamines Screen U Benzodiazepines Scrn Urine Cocaine Screen U Marijuana (THC) Screen Ethyl Alcohol COVID-19 (MARRY) COVID-19 Clin Com Airway Mallampati Class: II (Edentulous on top) TM Dist: >3cm Neck ROM: Full Heart: rrr Lungs: cta Assessment and Plan Assessment Anesthesia Assessment: Anesthesia Plan Discussed and Chart Reviewed Final Anesthetic Review NPO: Yes ASA Class: III Final Preanesthetic Review: No Changes in Pt Med Stat and Consent Obtained/Reviewed Patient Risk: Intermediate Procedure Risk: Intermediate Anesthetic Plan Anesthetic Plan: GA Disposition: Standard PACU
--- NOTE | 2021-03-17 09:08 | P.PNPSI_ITS ---
Subjective Subjective Date of Service: 03/17/21 Reason For Visit: Depression Interim History: The patient had ECT today AM. He is visible in the unit, seems with brighter affect. On interview, he was slightly confused after the ECT. Review of Systems Review of Systems Yes all other systems are reviewed and are negative Mental Status Exam Mental Status Exam Patient Appearance: Disheveled Patient Orientation: Person and Place Level of Consciousness: Awake Patient Behavior: Cooperative Mood Description: Calm and Withdrawn Affect Description: Constricted Patient Cognition Impaired: Yes Ability to Follow Directions: Good Speech Pattern: Clear Hallucinations: None Delusions: Not Present Thought Process: Slowed Thinking Thought Content: positive for Circumstantial and positive for Poverty of Content Depressive Symptoms: Increased Anxiety Judgement: Fair Diagnostics Vital Signs (24Hr): Vital Signs - 24 hr 03/16/21 18:00 03/17/21 06:14 03/17/21 06:21 Temperature 98.7 F 98.1 F 98.1 F Pulse Rate 111 H 97 97 Respiratory Rate 16 14 Blood Pressure 147/81 H 147/81 H Pulse Oximetry 96 96 96 Body Mass Index 28.0 Labs Results: 02/27/21 09:02 02/27/21 09:02 Medications Medications Current Medications Generic Name Dose Route Start Last Admin Trade Name Freq PRN Reason Stop Dose Admin Acetaminophen 650 mg 02/27/21 19:42 03/04/21 13:18 Acetaminophen 325 Mg Tablet PO 650 mg Q6H PRN Administration Headache/Pain Mild Scale (1-3) Acetaminophen 650 mg 03/08/21 13:37 Acetaminophen 325 Mg Tablet PO ONCE PRN Pain, Mild (Pain Scale 1-3) Al Hydroxide/Mg Hydroxide 30 ml 02/27/21 19:42 03/12/21 19:58 Magnesium Hydrox/Alum Hydrox 30 Ml Oral.Susp PO 30 ml Q6H PRN Administration Heartburn/Nausea Albuterol Sulfate 2 puff 02/27/21 19:42 03/17/21 06:32 Albuterol Sulfate 90 Mcg 8 Gm Inhaler INHALE 2 puff Q4H PRN Administration Shortness Of Breath Amlodipine Besylate 10 mg 02/28/21 09:00 03/16/21 08:14 Amlodipine Besylate 10 Mg Tablet PO 10 mg DAILY ÁLVARO Administration Protocol Ascorbic Acid 1,000 mg 02/28/21 09:00 03/16/21 08:16 Ascorbic Acid 500 Mg Tablet PO 1,000 mg DAILY ÁLVARO Administration Dicyclomine HCl 30 mg 02/28/21 13:00 03/16/21 22:33 Dicyclomine Hcl 10 Mg Capsule PO 30 mg TID ÁLVARO Administration Famotidine 40 mg 02/27/21 21:00 03/16/21 22:34 Famotidine 20 Mg Tablet PO 40 mg BEDTIME ÁLVARO Administration Fluticasone/Vilanterol 1 puff 02/28/21 08:00 03/16/21 08:14 Fluticasone/Vilanterol 200/25 Blst.W.Dev INHALE 1 puff RDAILY ÁLVARO Administration Lactated Ringer's 1,000 mls @ 50 mls/hr 03/15/21 07:15 03/16/21 23:27 Lr IVCONT Not Given .Q20H ÁLVARO Lactated Ringer's 1,000 mls @ 50 mls/hr 03/17/21 07:15 Lr IVCONT .Q20H ÁLVARO Lorazepam 0.5 mg 03/12/21 17:00 03/16/21 22:35 Lorazepam 0.5 Mg Tablet PO Not Given QID ÁLVARO Lorazepam 0.5 mg 03/12/21 18:46 03/16/21 11:45 Lorazepam 0.5 Mg Tablet PO 0.5 mg Q6H PRN Administration anxiety/restlessness Magnesium Hydroxide 30 ml 02/27/21 19:42 Milk Of Magnesia 30 Ml Oral.Susp PO DAILY PRN Constipation Multivitamins/Vitamin C 1 tab 02/28/21 09:00 03/16/21 08:16 Multivitamin Tablet PO 1 tab DAILY ÁLVARO Administration Nicotine Polacrilex 4 mg 02/27/21 19:42 Nicotine Polacrilex 2 Mg Gum BUCCAL Q2H PRN Nicotine Cravings Nortriptyline HCl 10 mg 03/09/21 21:00 03/16/21 22:34 Nortriptyline Hcl 10 Mg Capsule PO 10 mg BEDTIME ÁLVARO Administration Ondansetron HCl 4 mg 03/08/21 13:37 Ondansetron Hcl 4 Mg/2 Ml Vial IVPUSH ONCE PRN Nausea and Vomiting Quetiapine Fumarate 12.5 mg 03/09/21 13:51 03/09/21 19:29 Quetiapine Fumarate 25 Mg Tablet PO 12.5 mg Q4H PRN Administration anxiety/restlessness Tiotropium [place] 2 puff 02/28/21 08:00 03/16/21 10:24 Tiotropium [place] 18 Mcg Cap.W.Dev INHALE 2 puff RDAILY ÁLVARO Administration Vitamin D 50 mcg 02/28/21 09:00 03/16/21 08:14 Cholecalciferol (Vitamin D3) 25 Mcg Tablet PO 50 mcg DAILY ÁLVARO Administration Allergies Allergies Allergy/AdvReac Type Severity Reaction Status Date / Time lamotrigine [From LAMICTAL] Allergy Severe agitation Verified 02/23/21 16:08 and anxiety with titration codeine [CODEINE] Allergy Intermediate INSOMNIA Verified 02/23/21 16:08 Penicillins [PENICILLINS] Allergy Intermediate RASH Verified 02/23/21 16:08 epinephrine [EPINEPHRINE] AdvReac Intermediate Hypertensio Verified 02/23/21 16:08 n escitalopram [From LEXAPRO] AdvReac Intermediate NIGHTMARES Verified 02/23/21 16:08 sertraline [From ZOLOFT] AdvReac Intermediate NIGHTMARES Verified 02/23/21 16:08 sulfamethoxazole AdvReac Intermediate STOMACH Verified 02/23/21 16:08 [From BACTRIM] UPSET Assessment & Plan Assessment & Plan (1) Preoperative cardiovascular examination: Status: Acute Code(s): Z01.810 - Encounter for preprocedural cardiovascular examination (2) CAD (coronary artery disease): Status: Acute Code(s): I25.10 - Atherosclerotic heart disease of [place] coronary artery without angina pectoris (3) Confusion with nonfocal neurological examination: Status: Acute Code(s): R41.0 - Disorientation, unspecified (4) Generalized anxiety disorder: Status: Acute Code(s): F41.1 - Generalized anxiety disorder (5) 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
--- NOTE | 2021-03-17 09:08 | PC.NURSE ---
ect canceled-psychiatrist assessed as being to confused for todays tx. tx not given.
[2021-03-17] MEDS: Cholecalciferol (Vitamin D3) 25 MCG TABLET 50 MCG PO (11:01)
[2021-03-17 11:02] VITALS: BP 147/81; PULSE 97
[2021-03-17] MEDS: Ascorbic Acid 500 MG TABLET 1000 MG PO (11:02)
[2021-03-17] MEDS: amLODIPine Besylate 10 MG TABLET PO (11:02)
[2021-03-17] MEDS: Dicyclomine HCl 10 MG CAPSULE 30 MG PO ×3 (11:03→20:36)
[2021-03-17] MEDS: LORazepam 0.5 MG TABLET PO ×3 (11:04→20:36)
[2021-03-17] MEDS: Fluticasone/Vilanterol 200/25 BLST.W.DEV 1 PUFF INHALE (11:12)
[2021-03-17] MEDS: Multivitamin TABLET 1 TAB PO (11:54)
[2021-03-17 18:19] VITALS: BP 133/62; PULSE 104; TEMP 36.3; O2SAT 96
[2021-03-17 19:01] LABS: Alanine Aminotransferase 40 U/L (0-40); Albumin Level 4.4 g/dL (3.5-5.0); Alkaline Phosphatase 56 U/L (39-117); Anion Gap 14 (12-20); Aspartate Amino Transferase 22 U/L (5-37); Bilirubin Total 0.3 mg/dL (0.0-1.0); Blood Urea Nitrogen 8 mg/dL (9-16); Calcium 9.5 mg/dL (8.4-10.2); Carbon Dioxide 25 mmol/L (22-29); Chloride 105 mmol/L (96-108); Creatinine Clr Calc Pharmacy 88.9; Estimated Glomerular Filt Rate > 60; Glucose Random 104 mg/dL (60-115); Potassium 3.8 mmol/L (3.3-5.1); Sodium 140 mmol/L (135-145)
[2021-03-17] MEDS: Nortriptyline HCl 10 MG CAPSULE PO (20:36)
[2021-03-17] MEDS: Famotidine 20 MG TABLET 40 MG PO (20:36)
[2021-03-17] MEDS: QUEtiapine Fumarate 25 MG TABLET 12.5 MG PO (20:37)
[2021-03-17 21:11] VITALS: BP 104/78; PULSE 106; RESP 18; O2SAT 95
--- NOTE | 2021-03-17 21:22 | HO.PSYCHPN ---
Subjective Subjective Date of Service: 03/17/21 Reason For Visit: Depression Subjective Notes: Conditional Voluntary Guardianship: No Interim History: Or patient perplexed anxious somewhat slowed mentation clearing from post ECT confusion. ECT was held today not agitated less anxious mood generally seems improved Medication Compliance: Yes Side effects from medications: No Attending Groups: Intermittent Mental Status Exam Mental Status Exam Narrative: Patient with slowed mentation working attention somewhat impaired reasoning intact complained insomnia nos place year floor home address Patient Appearance: Disheveled Patient Orientation: Person, Place and Situation Level of Consciousness: Awake Patient Behavior: Cooperative Mood Description: Calm and Withdrawn Affect Description: Constricted Patient Cognition Impaired: Yes Ability to Follow Directions: Good Speech Pattern: Clear Hallucinations: None Delusions: Not Present Thought Process: Slowed Thinking Thought Content: positive for Circumstantial and positive for Poverty of Content Depressive Symptoms: Increased Anxiety Judgement: Fair Diagnostics Vital Signs (24Hr): Vital Signs - 24 hr 03/17/21 06:14 03/17/21 06:21 03/17/21 11:02 Temperature 98.1 F 98.1 F Pulse Rate 97 97 97 Respiratory Rate 14 Blood Pressure 147/81 H 147/81 H 147/81 H Pulse Oximetry 96 96 03/17/21 18:19 03/17/21 21:11 Temperature 97.4 F Pulse Rate 104 H 106 H Respiratory Rate 18 Blood Pressure 133/62 104/78 Pulse Oximetry 96 95 Body Mass Index 28.0 Labs Results: 02/27/21 09:02 03/17/21 18:28 Labs: Laboratory Results - last 48 hr 03/17/21 18:28 Sodium 140 Potassium 3.8 Chloride 105 Carbon Dioxide 25 Anion Gap 14 BUN 8 L Creatinine 0.80 Estim Creat Clear Calc 88.9 Estimated GFR > 60 Random Glucose 104 Calcium 9.5 Total Bilirubin 0.3 AST 22 ALT 40 Alkaline Phosphatase 56 Total Protein 7.0 Albumin 4.4 Medications Medications Current Medications Generic Name Dose Route Start Last Admin Trade Name Freq PRN Reason Stop Dose Admin Acetaminophen 650 mg 02/27/21 19:42 03/04/21 13:18 Acetaminophen 325 Mg Tablet PO 650 mg Q6H PRN Administration Headache/Pain Mild Scale (1-3) Acetaminophen 650 mg 03/08/21 13:37 Acetaminophen 325 Mg Tablet PO ONCE PRN Pain, Mild (Pain Scale 1-3) Al Hydroxide/Mg Hydroxide 30 ml 02/27/21 19:42 03/12/21 19:58 Magnesium Hydrox/Alum Hydrox 30 Ml Oral.Susp PO 30 ml Q6H PRN Administration Heartburn/Nausea Albuterol Sulfate 2 puff 02/27/21 19:42 03/17/21 17:48 Albuterol Sulfate 90 Mcg 8 Gm Inhaler INHALE 2 puff Q4H PRN Administration Shortness Of Breath Amlodipine Besylate 10 mg 02/28/21 09:00 03/17/21 11:02 Amlodipine Besylate 10 Mg Tablet PO 10 mg DAILY ÁLVARO Administration Protocol Ascorbic Acid 1,000 mg 02/28/21 09:00 03/17/21 11:02 Ascorbic Acid 500 Mg Tablet PO 1,000 mg DAILY ÁLVARO Administration Dicyclomine HCl 30 mg 02/28/21 13:00 03/17/21 20:36 Dicyclomine Hcl 10 Mg Capsule PO 30 mg TID ÁLVARO Administration Famotidine 40 mg 02/27/21 21:00 03/17/21 20:36 Famotidine 20 Mg Tablet PO 40 mg BEDTIME ÁLVARO Administration Fluticasone/Vilanterol 1 puff 02/28/21 08:00 03/17/21 11:12 Fluticasone/Vilanterol 200/25 Blst.W.Dev INHALE 1 puff RDAILY ÁLVARO Administration Lorazepam 0.5 mg 03/12/21 17:00 03/17/21 20:36 Lorazepam 0.5 Mg Tablet PO 0.5 mg QID ÁLVARO Administration Lorazepam 0.5 mg 03/12/21 18:46 03/17/21 17:24 Lorazepam 0.5 Mg Tablet PO 0.5 mg Q6H PRN Administration anxiety/restlessness Magnesium Hydroxide 30 ml 02/27/21 19:42 Milk Of Magnesia 30 Ml Oral.Susp PO DAILY PRN Constipation Multivitamins/Vitamin C 1 tab 02/28/21 09:00 03/17/21 11:54 Multivitamin Tablet PO 1 tab DAILY ÁLVARO Administration Nicotine Polacrilex 4 mg 02/27/21 19:42 Nicotine Polacrilex 2 Mg Gum BUCCAL Q2H PRN Nicotine Cravings Nortriptyline HCl 10 mg 03/09/21 21:00 03/17/21 20:36 Nortriptyline Hcl 10 Mg Capsule PO 10 mg BEDTIME ÁLVARO Administration Ondansetron HCl 4 mg 03/08/21 13:37 Ondansetron Hcl 4 Mg/2 Ml Vial IVPUSH ONCE PRN Nausea and Vomiting Quetiapine Fumarate 12.5 mg 03/09/21 13:51 03/09/21 19:29 Quetiapine Fumarate 25 Mg Tablet PO 12.5 mg Q4H PRN Administration anxiety/restlessness Quetiapine Fumarate 12.5 mg 03/17/21 21:00 03/17/21 20:37 Quetiapine Fumarate 25 Mg Tablet PO 12.5 mg BEDTIME ÁLVARO Administration Tiotropium [place] 2 puff 02/28/21 08:00 03/17/21 11:12 Tiotropium [place] 18 Mcg Cap.W.Dev INHALE 2 puff RDAILY ÁLVARO Administration Vitamin D 50 mcg 02/28/21 09:00 03/17/21 11:01 Cholecalciferol (Vitamin D3) 25 Mcg Tablet PO 50 mcg DAILY ÁLVARO Administration Allergies Allergies Allergy/AdvReac Type Severity Reaction Status Date / Time lamotrigine [From LAMICTAL] Allergy Severe agitation Verified 02/23/21 16:08 and anxiety with titration codeine [CODEINE] Allergy Intermediate INSOMNIA Verified 02/23/21 16:08 Penicillins [PENICILLINS] Allergy Intermediate RASH Verified 02/23/21 16:08 epinephrine [EPINEPHRINE] AdvReac Intermediate Hypertensio Verified 02/23/21 16:08 n escitalopram [From LEXAPRO] AdvReac Intermediate NIGHTMARES Verified 02/23/21 16:08 sertraline [From ZOLOFT] AdvReac Intermediate NIGHTMARES Verified 02/23/21 16:08 sulfamethoxazole AdvReac Intermediate STOMACH Verified 02/23/21 16:08 [From BACTRIM] UPSET Assessment & Plan Assessment & Plan (1) CAD (coronary artery disease): Status: Acute Code(s): I25.10 - Atherosclerotic heart disease of [place] coronary artery without angina pectoris (2) Confusion with nonfocal neurological examination: Status: Acute Code(s): R41.0 - Disorientation, unspecified (3) Generalized anxiety disorder: Status: Acute Code(s): F41.1 - Generalized anxiety disorder (4) 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: Status: Acute Code(s): F40.01 - Agoraphobia with panic disorder (5) Major depressive disorder, recurrent episode, severe with anxious distress: Status: Acute Code(s): F33.2 - Major depressive disorder, recurrent severe without psychotic features Assessment and Plan: Some improvement post ECT however now presenting with some degree of post ECT difficulty with working attention improving memory function from yesterday Plan hold ECT check CBC in Chem profile Greater than 50% of the session was spent on counseling and/or coordination of care Reason for contiued inpatient stay Substantial Risk for: inability to function, rapid decompensation and med/psych decompensation
[2021-03-18 06:00] VITALS: BP 102/58; PULSE 92; RESP 16; O2SAT 92
[2021-03-18 07:45] LABS: MANUAL DIFF FLAG NO
[2021-03-18 07:55] LABS: Basophils Percent Auto 0.4 % (0-2); Eosinophils Absolute Auto 0.1 X10*3/uL (0.0-0.4); Eosinophils Percent Auto 2.5 % (0-4); Hematocrit 41.3 % (42-52); Hemoglobin 13.9 g/dl (14.0-18.0); Imm Gran Abs Auto 0.02 X10*3/uL (0.00-0.03); Imm Gran Pct Auto 0.4 % (0.0-0.4); Lymphocytes Absolute Auto 2.1 X10*3/uL (1.2-4.9); Lymphocytes Percent Auto 37.3 % (20-40); Mean Corpuscular HGB Conc 33.7 g/dl (31.0-36.0); Mean Corpuscular Hemoglobin 30.2 pg (27.0-33.0); Mean Corpuscular Volume 89.8 fL (80-98); Mean Platelet Volume 8.6 fL (9.4-12.4); Monocytes Absolute Auto 0.6 X10*3/uL (0.1-1.2); Neutrophils Absolute Auto 2.7 X10*3/uL (2.0-8.3); Neutrophils Percent Auto 48.4 % (45-73); Platelet Count 225 X10*3/uL (160-400); White Blood Count 5.5 X10*3/uL (4.8-10.8)
[2021-03-18] MEDS: Ascorbic Acid 500 MG TABLET 1000 MG PO (08:33)
[2021-03-18] MEDS: LORazepam 0.5 MG TABLET PO ×5 (08:33→21:10)
[2021-03-18] MEDS: amLODIPine Besylate 10 MG TABLET PO (08:33)
[2021-03-18] MEDS: Cholecalciferol (Vitamin D3) 25 MCG TABLET 50 MCG PO (08:33)
[2021-03-18] MEDS: Multivitamin TABLET 1 TAB PO (08:33)
[2021-03-18] MEDS: Albuterol Sulfate 90 MCG 8 GM INHALER 2 PUFF INHALE (08:37)
[2021-03-18] MEDS: Fluticasone/Vilanterol 200/25 BLST.W.DEV 1 PUFF INHALE (08:37)
[2021-03-18] MEDS: Dicyclomine HCl 10 MG CAPSULE 30 MG PO ×3 (08:38→21:08)
--- NOTE | 2021-03-18 11:30 | HO.PSYCHPN ---
Subjective Subjective Date of Service: 03/19/21 Reason For Visit: Depression Interim History: Pt reports feeling less confused after stopping ECT. He reports less symptoms of depression in that he notes he is more future oriented and looks to some extend to return home with family. He continues to endorse anxious mood. He denies SI/HI. He reports sleep and appetite are good. He has been slightly more visible in the unit. No behavioral concerns. Pt asked for his oxygen concentrator to be brought in from home. He reported SOB, we check his O2 sat when ambulating and it dropped from 97% on room air to 90% on room air- pt with hx of COPD. He reports he does not know his O2sat baseline. Review of Systems Review of Systems Yes all other systems are reviewed and are negative; No unobtainable due to endotracheal tube, Unobtainable due to mental condition, Unobtainable due to mental status or Other Constitutional: Reports no additional constitutional complaints Eyes: Reports no additional eye complaints Reports dizziness Cardiovascular: Reports as per HPI, Reports no additional cardiovascular complaints and Reports dyspnea on exertion Respiratory: Reports as per HPI, Reports no additional respiratory complaints and Reports dyspnea on exertion Gastrointestinal: Reports as per HPI, Reports no additional gastrointestinal complaints and Reports bloating Genitourinary: Reports no additional male genitourinary complaints and Reports as per HPI Musculoskeletal: Reports no additional musculoskeletal complaints, Reports as per HPI and Reports stiffness Skin/Breast: Reports as per HPI and Reports rash Reports system reviewed and no additional complaints, except as documented, Reports as per HPI, Reports confusion, Reports dizziness and Denies Sensory deficit (Neuro) Psychiatric: Reports no additional psychiatric complaints, Reports anxiety, Reports confusion, Reports depression, Reports difficulty concentrating, Reports hopelessness and Reports anhedonia Endocrine: Reports no additional endocrine complaints and Reports as per HPI Hematologic/Lymphatic: Reports no additional hematologic/lymphatic complaints and Reports as per HPI Allergic/Immunologic: Reports as per HPI Mental Status Exam Mental Status Exam Narrative: Appearance: casually groomed, fair hygiene, in NAD Behavior: calm, cooperative Psychomotor: no agitation or retardation noted Speech: clear, normal rate/rhythm/volume, spontaneous TP: linear TC: no signs of psychosis, more future oriented Mood: anxious Affect:congruent, restless SI:denies HI:denies AH/VH:denies Delusions:none Insight/judgment:fair x 2. Memory/cog: alert, oriented x 3. not formally tested. Diagnostics Vital Signs (24Hr): Vital Signs - 24 hr 03/18/21 18:00 03/19/21 06:00 Temperature 97.9 F Pulse Rate 100 Respiratory Rate 18 Blood Pressure 131/74 Pulse Oximetry 96 Body Mass Index 28.0 Labs Results: 03/18/21 07:25 03/17/21 18:28 Labs: Laboratory Results - last 48 hr 03/17/21 03/18/21 18:28 07:25 WBC 5.5 RBC 4.60 Hgb 13.9 L Hct 41.3 L MCV 89.8 MCH 30.2 MCHC 33.7 RDW 13.0 Plt Count 225 MPV 8.6 L Immature Gran % (Auto) 0.4 Neut % (Auto) 48.4 Lymph % (Auto) 37.3 [place] % (Auto) 11.0 Eos % (Auto) 2.5 Baso % (Auto) 0.4 Lymph # (Auto) 2.1 [place] # (Auto) 0.6 Eos # (Auto) 0.1 Baso # (Auto) 0.0 Abs Immat Gran (auto) 0.02 Absolute Neuts (auto) 2.7 Absolute Nucleated RBC 0.000 Nucleated RBC % (auto) 0.0 Sodium 140 Potassium 3.8 Chloride 105 Carbon Dioxide 25 Anion Gap 14 BUN 8 L Creatinine 0.80 Estim Creat Clear Calc 88.9 Estimated GFR > 60 Random Glucose 104 Calcium 9.5 Total Bilirubin 0.3 AST 22 ALT 40 Alkaline Phosphatase 56 Total Protein 7.0 Albumin 4.4 Medications Medications Current Medications Generic Name Dose Route Start Last Admin Trade Name Freq PRN Reason Stop Dose Admin Acetaminophen 650 mg 02/27/21 19:42 03/04/21 13:18 Acetaminophen 325 Mg Tablet PO 650 mg Q6H PRN Administration Headache/Pain Mild Scale (1-3) Acetaminophen 650 mg 03/08/21 13:37 Acetaminophen 325 Mg Tablet PO ONCE PRN Pain, Mild (Pain Scale 1-3) Al Hydroxide/Mg Hydroxide 30 ml 02/27/21 19:42 03/12/21 19:58 Magnesium Hydrox/Alum Hydrox 30 Ml Oral.Susp PO 30 ml Q6H PRN Administration Heartburn/Nausea Albuterol Sulfate 2 puff 02/27/21 19:42 03/19/21 09:31 Albuterol Sulfate 90 Mcg 8 Gm Inhaler INHALE 2 puff Q4H PRN Administration Shortness Of Breath Amlodipine Besylate 10 mg 02/28/21 09:00 03/19/21 08:56 Amlodipine Besylate 10 Mg Tablet PO 10 mg DAILY ÁLVARO Administration Protocol Ascorbic Acid 1,000 mg 02/28/21 09:00 03/19/21 08:57 Ascorbic Acid 500 Mg Tablet PO 1,000 mg DAILY ÁLVARO Administration Dicyclomine HCl 30 mg 02/28/21 13:00 03/19/21 08:57 Dicyclomine Hcl 10 Mg Capsule PO 30 mg TID ÁLVARO Administration Famotidine 40 mg 02/27/21 21:00 03/18/21 21:07 Famotidine 20 Mg Tablet PO 40 mg BEDTIME ÁLVARO Administration Fluticasone/Vilanterol 1 puff 02/28/21 08:00 03/19/21 09:29 Fluticasone/Vilanterol 200/25 Blst.W.Dev INHALE 1 puff RDAILY ÁLVARO Administration Lorazepam 0.5 mg 03/12/21 17:00 03/19/21 08:57 Lorazepam 0.5 Mg Tablet PO 0.5 mg QID ÁLVARO Administration Lorazepam 0.5 mg 03/12/21 18:46 03/19/21 10:52 Lorazepam 0.5 Mg Tablet PO 0.5 mg Q6H PRN Administration anxiety/restlessness Magnesium Hydroxide 30 ml 02/27/21 19:42 Milk Of Magnesia 30 Ml Oral.Susp PO DAILY PRN Constipation Multivitamins/Vitamin C 1 tab 02/28/21 09:00 03/19/21 08:56 Multivitamin Tablet PO 1 tab DAILY ÁLVARO Administration Nicotine Polacrilex 4 mg 02/27/21 19:42 Nicotine Polacrilex 2 Mg Gum BUCCAL Q2H PRN Nicotine Cravings Nortriptyline HCl 10 mg 03/09/21 21:00 03/18/21 21:07 Nortriptyline Hcl 10 Mg Capsule PO 10 mg BEDTIME ÁLVARO Administration Ondansetron HCl 4 mg 03/08/21 13:37 Ondansetron Hcl 4 Mg/2 Ml Vial IVPUSH ONCE PRN Nausea and Vomiting Quetiapine Fumarate 12.5 mg 03/09/21 13:51 03/18/21 18:58 Quetiapine Fumarate 25 Mg Tablet PO 12.5 mg Q4H PRN Administration anxiety/restlessness Quetiapine Fumarate 12.5 mg 03/17/21 21:00 03/18/21 21:07 Quetiapine Fumarate 25 Mg Tablet PO 12.5 mg BEDTIME ÁLVARO Administration Tiotropium [place] 2 puff 02/28/21 08:00 03/19/21 09:29 Tiotropium [place] 18 Mcg Cap.W.Dev INHALE 2 puff RDAILY ÁLVARO Administration Vitamin D 50 mcg 02/28/21 09:00 03/19/21 08:56 Cholecalciferol (Vitamin D3) 25 Mcg Tablet PO 50 mcg DAILY ÁLVARO Administration Allergies Allergies Allergy/AdvReac Type Severity Reaction Status Date / Time lamotrigine [From LAMICTAL] Allergy Severe agitation Verified 02/23/21 16:08 and anxiety with titration codeine [CODEINE] Allergy Intermediate INSOMNIA Verified 02/23/21 16:08 Penicillins [PENICILLINS] Allergy Intermediate RASH Verified 02/23/21 16:08 epinephrine [EPINEPHRINE] AdvReac Intermediate Hypertensio Verified 02/23/21 16:08 n escitalopram [From LEXAPRO] AdvReac Intermediate NIGHTMARES Verified 02/23/21 16:08 sertraline [From ZOLOFT] AdvReac Intermediate NIGHTMARES Verified 02/23/21 16:08 sulfamethoxazole AdvReac Intermediate STOMACH Verified 02/23/21 16:08 [From BACTRIM] UPSET Assessment & Plan Assessment & Plan (1) CAD (coronary artery disease): Status: Acute Code(s): I25.10 - Atherosclerotic heart disease of [place] coronary artery without angina pectoris (2) Confusion with nonfocal neurological examination: Status: Acute Code(s): R41.0 - Disorientation, unspecified (3) Generalized anxiety disorder: Status: Acute Code(s): F41.1 - Generalized anxiety disorder (4) 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 Oxygen concentrator order placed. Some improvement post ECT however now presenting with some degree of post ECT difficulty with working attention improving memory function from yesterday Plan hold ECT check CBC in Chem profile Greater than 50% of the session was spent on counseling and/or coordination of care Reason for contiued inpatient stay Substantial Risk for: harm to self and inability to function
[2021-03-18 18:00] VITALS: BP 131/74; PULSE 100; TEMP 36.6; O2SAT 96
[2021-03-18] MEDS: QUEtiapine Fumarate 25 MG TABLET 12.5 MG PO ×2 (18:58→21:07)
[2021-03-18] MEDS: Nortriptyline HCl 10 MG CAPSULE PO (21:07)
[2021-03-18] MEDS: Famotidine 20 MG TABLET 40 MG PO (21:07)
[2021-03-19 06:00] VITALS: RESP 18
[2021-03-19] MEDS: Multivitamin TABLET 1 TAB PO (08:56)
[2021-03-19] MEDS: Cholecalciferol (Vitamin D3) 25 MCG TABLET 50 MCG PO (08:56)
[2021-03-19] MEDS: amLODIPine Besylate 10 MG TABLET PO (08:56)
[2021-03-19] MEDS: Ascorbic Acid 500 MG TABLET 1000 MG PO (08:57)
[2021-03-19] MEDS: Dicyclomine HCl 10 MG CAPSULE 30 MG PO ×3 (08:57→20:43)
[2021-03-19] MEDS: LORazepam 0.5 MG TABLET PO ×5 (08:57→20:44)
[2021-03-19] MEDS: Fluticasone/Vilanterol 200/25 BLST.W.DEV 1 PUFF INHALE (09:29)
[2021-03-19] MEDS: Albuterol Sulfate 90 MCG 8 GM INHALER 2 PUFF INHALE ×2 (09:31→15:20)
--- NOTE | 2021-03-19 11:35 | HO.PSYCHPN ---
Subjective Subjective Date of Service: 03/19/21 Reason For Visit: Depression Interim History: Pt reports feeling slightly less depressed. He continues to report fair amount of anxiety, which does affect his SOB. He reports sleeping and eating well. He denies SI/HI. He has been more visible in the unit, social with select peers. Pt asked for his oxygen concentrator, which was brought from home. He reported SOB, we check his O2 sat when ambulating and it dropped from 97% on room air to 90% on room air- pt with hx of COPD. He reports he does not know his O2sat baseline. Review of Systems Review of Systems Yes all other systems are reviewed and are negative; No unobtainable due to endotracheal tube, Unobtainable due to mental condition, Unobtainable due to mental status or Other Constitutional: Reports no additional constitutional complaints Eyes: Reports no additional eye complaints Reports dizziness Cardiovascular: Reports as per HPI, Reports no additional cardiovascular complaints and Reports dyspnea on exertion Respiratory: Reports as per HPI, Reports no additional respiratory complaints and Reports dyspnea on exertion Gastrointestinal: Reports as per HPI, Reports no additional gastrointestinal complaints and Reports bloating Genitourinary: Reports no additional male genitourinary complaints and Reports as per HPI Musculoskeletal: Reports no additional musculoskeletal complaints, Reports as per HPI and Reports stiffness Skin/Breast: Reports as per HPI and Reports rash Reports system reviewed and no additional complaints, except as documented, Reports as per HPI, Reports confusion, Reports dizziness and Denies Sensory deficit (Neuro) Psychiatric: Reports no additional psychiatric complaints, Reports anxiety, Reports confusion, Reports depression, Reports difficulty concentrating, Reports hopelessness and Reports anhedonia Endocrine: Reports no additional endocrine complaints and Reports as per HPI Hematologic/Lymphatic: Reports no additional hematologic/lymphatic complaints and Reports as per HPI Allergic/Immunologic: Reports as per HPI Mental Status Exam Mental Status Exam Narrative: Appearance: casually groomed, fair hygiene, in NAD Behavior: calm, cooperative Psychomotor: no agitation or retardation noted Speech: clear, normal rate/rhythm/volume, spontaneous TP: linear TC: no signs of psychosis, more future oriented Mood: anxious Affect:congruent, restless SI:denies HI:denies AH/VH:denies Delusions:none Insight/judgment:fair x 2. Memory/cog: alert, oriented x 3. not formally tested. Diagnostics Vital Signs (24Hr): Vital Signs - 24 hr 03/18/21 18:00 06/27/21 06:00 Temperature 97.9 F Pulse Rate 100 Respiratory Rate 18 Blood Pressure 131/74 Pulse Oximetry 96 Body Mass Index 28.0 Labs Results: 03/18/21 07:25 03/17/21 18:28 Labs: Laboratory Results - last 48 hr 03/17/21 03/18/21 18:28 07:25 WBC 5.5 RBC 4.60 Hgb 13.9 L Hct 41.3 L MCV 89.8 MCH 30.2 MCHC 33.7 RDW 13.0 Plt Count 225 MPV 8.6 L Immature Gran % (Auto) 0.4 Neut % (Auto) 48.4 Lymph % (Auto) 37.3 [place] % (Auto) 11.0 Eos % (Auto) 2.5 Baso % (Auto) 0.4 Lymph # (Auto) 2.1 [place] # (Auto) 0.6 Eos # (Auto) 0.1 Baso # (Auto) 0.0 Abs Immat Gran (auto) 0.02 Absolute Neuts (auto) 2.7 Absolute Nucleated RBC 0.000 Nucleated RBC % (auto) 0.0 Sodium 140 Potassium 3.8 Chloride 105 Carbon Dioxide 25 Anion Gap 14 BUN 8 L Creatinine 0.80 Estim Creat Clear Calc 88.9 Estimated GFR > 60 Random Glucose 104 Calcium 9.5 Total Bilirubin 0.3 AST 22 ALT 40 Alkaline Phosphatase 56 Total Protein 7.0 Albumin 4.4 Medications Medications Current Medications Generic Name Dose Route Start Last Admin Trade Name Freq PRN Reason Stop Dose Admin Acetaminophen 650 mg 02/27/21 19:42 03/04/21 13:18 Acetaminophen 325 Mg Tablet PO 650 mg Q6H PRN Administration Headache/Pain Mild Scale (1-3) Acetaminophen 650 mg 03/08/21 13:37 Acetaminophen 325 Mg Tablet PO ONCE PRN Pain, Mild (Pain Scale 1-3) Al Hydroxide/Mg Hydroxide 30 ml 02/27/21 19:42 03/12/21 19:58 Magnesium Hydrox/Alum Hydrox 30 Ml Oral.Susp PO 30 ml Q6H PRN Administration Heartburn/Nausea Albuterol Sulfate 2 puff 02/27/21 19:42 03/19/21 09:31 Albuterol Sulfate 90 Mcg 8 Gm Inhaler INHALE 2 puff Q4H PRN Administration Shortness Of Breath Amlodipine Besylate 10 mg 02/28/21 09:00 03/19/21 08:56 Amlodipine Besylate 10 Mg Tablet PO 10 mg DAILY ÁLVARO Administration Protocol Ascorbic Acid 1,000 mg 02/28/21 09:00 03/19/21 08:57 Ascorbic Acid 500 Mg Tablet PO 1,000 mg DAILY ÁLVARO Administration Dicyclomine HCl 30 mg 02/28/21 13:00 03/19/21 08:57 Dicyclomine Hcl 10 Mg Capsule PO 30 mg TID ÁLVARO Administration Famotidine 40 mg 02/27/21 21:00 03/18/21 21:07 Famotidine 20 Mg Tablet PO 40 mg BEDTIME ÁLVARO Administration Fluticasone/Vilanterol 1 puff 02/28/21 08:00 03/19/21 09:29 Fluticasone/Vilanterol 200/25 Blst.W.Dev INHALE 1 puff RDAILY ÁLVARO Administration Lorazepam 0.5 mg 03/12/21 17:00 03/19/21 08:57 Lorazepam 0.5 Mg Tablet PO 0.5 mg QID ÁLVARO Administration Lorazepam 0.5 mg 03/12/21 18:46 03/19/21 10:52 Lorazepam 0.5 Mg Tablet PO 0.5 mg Q6H PRN Administration anxiety/restlessness Magnesium Hydroxide 30 ml 02/27/21 19:42 Milk Of Magnesia 30 Ml Oral.Susp PO DAILY PRN Constipation Multivitamins/Vitamin C 1 tab 02/28/21 09:00 03/19/21 08:56 Multivitamin Tablet PO 1 tab DAILY ÁLVARO Administration Nicotine Polacrilex 4 mg 02/27/21 19:42 Nicotine Polacrilex 2 Mg Gum BUCCAL Q2H PRN Nicotine Cravings Nortriptyline HCl 10 mg 03/09/21 21:00 03/18/21 21:07 Nortriptyline Hcl 10 Mg Capsule PO 10 mg BEDTIME ÁLVARO Administration Ondansetron HCl 4 mg 03/08/21 13:37 Ondansetron Hcl 4 Mg/2 Ml Vial IVPUSH ONCE PRN Nausea and Vomiting Quetiapine Fumarate 12.5 mg 03/09/21 13:51 03/18/21 18:58 Quetiapine Fumarate 25 Mg Tablet PO 12.5 mg Q4H PRN Administration anxiety/restlessness Quetiapine Fumarate 12.5 mg 03/17/21 21:00 03/18/21 21:07 Quetiapine Fumarate 25 Mg Tablet PO 12.5 mg BEDTIME ÁLVARO Administration Tiotropium [place] 2 puff 02/28/21 08:00 03/19/21 09:29 Tiotropium [place] 18 Mcg Cap.W.Dev INHALE 2 puff RDAILY ÁLVARO Administration Vitamin D 50 mcg 02/28/21 09:00 03/19/21 08:56 Cholecalciferol (Vitamin D3) 25 Mcg Tablet PO 50 mcg DAILY ÁLVARO Administration Allergies Allergies Allergy/AdvReac Type Severity Reaction Status Date / Time lamotrigine [From LAMICTAL] Allergy Severe agitation Verified 02/23/21 16:08 and anxiety with titration codeine [CODEINE] Allergy Intermediate INSOMNIA Verified 02/23/21 16:08 Penicillins [PENICILLINS] Allergy Intermediate RASH Verified 02/23/21 16:08 epinephrine [EPINEPHRINE] AdvReac Intermediate Hypertensio Verified 02/23/21 16:08 n escitalopram [From LEXAPRO] AdvReac Intermediate NIGHTMARES Verified 02/23/21 16:08 sertraline [From ZOLOFT] AdvReac Intermediate NIGHTMARES Verified 02/23/21 16:08 sulfamethoxazole AdvReac Intermediate STOMACH Verified 02/23/21 16:08 [From BACTRIM] UPSET Assessment & Plan Assessment & Plan (1) CAD (coronary artery disease): Status: Acute Code(s): I25.10 - Atherosclerotic heart disease of [place] coronary artery without angina pectoris (2) Confusion with nonfocal neurological examination: Status: Acute Code(s): R41.0 - Disorientation, unspecified (3) Generalized anxiety disorder: Status: Acute Code(s): F41.1 - Generalized anxiety disorder (4) 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 Oxygen concentrator order placed. Some improvement post ECT however now presenting with some degree of post ECT difficulty with working attention improving memory function from yesterday Plan hold ECT check CBC in Chem profile Greater than 50% of the session was spent on counseling and/or coordination of care Reason for contiued inpatient stay Substantial Risk for: harm to self
[2021-03-19 18:00] VITALS: BP 126/73; PULSE 102; TEMP 35.9; O2SAT 95
[2021-03-19] MEDS: Nortriptyline HCl 10 MG CAPSULE PO (20:43)
[2021-03-19] MEDS: QUEtiapine Fumarate 25 MG TABLET 12.5 MG PO (20:43)
[2021-03-19] MEDS: Famotidine 20 MG TABLET 40 MG PO (20:44)
[2021-03-20 08:27] VITALS: BP 116/69; PULSE 103; RESP 16; TEMP 36.2; O2SAT 96
[2021-03-20] MEDS: Albuterol Sulfate 90 MCG 8 GM INHALER 2 PUFF INHALE (08:28)
[2021-03-20] MEDS: Fluticasone/Vilanterol 200/25 BLST.W.DEV 1 PUFF INHALE (08:28)
[2021-03-20 08:30] VITALS: BP 116/69; PULSE 103
[2021-03-20] MEDS: amLODIPine Besylate 10 MG TABLET PO (08:30)
[2021-03-20] MEDS: Ascorbic Acid 500 MG TABLET 1000 MG PO (08:30)
[2021-03-20] MEDS: Dicyclomine HCl 10 MG CAPSULE 30 MG PO ×2 (08:30→14:13)
[2021-03-20] MEDS: Multivitamin TABLET 1 TAB PO (08:31)
[2021-03-20] MEDS: Cholecalciferol (Vitamin D3) 25 MCG TABLET 50 MCG PO (08:31)
[2021-03-20] MEDS: LORazepam 0.5 MG TABLET PO ×3 (08:31→13:40)
[2021-03-20] MEDS: QUEtiapine Fumarate 25 MG TABLET 12.5 MG PO (09:35)
--- NOTE | 2021-03-20 14:26 | P.DS_ITS ---
DS: Providers Provider Date of Service: 03/20/21 Date of admission: 02/27/21 19:16 Primary care physician: Justa Bone MD DS: Diagnosis Discharge Diagnosis (1) Confusion with nonfocal neurological examination: Status: Acute (2) Generalized anxiety disorder: Status: Acute (3) 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: Status: Acute (4) Major depressive disorder, recurrent episode, severe with anxious distress: Status: Acute DS: Medications Discharge Medications Home Medications: Home Medications Medication Instructions Recorded Confirmed Spiriva Respimat 2 puff PO DAILY 07/08/20 02/27/21 ascorbic acid (vitamin C) 1,000 mg 1,000 mg PO DAILY 07/21/20 02/27/21 tablet cholecalciferol (vitamin D3) 25 50 mcg PO DAILY cap 07/21/20 02/27/21 mcg (1,000 unit) capsule famotidine 40 mg PO BEDTIME 02/10/21 02/27/21 fluticasone propion-salmeterol 1 inh INHALATION BID 02/10/21 02/27/21 [Advair Diskus] levalbuterol HCl [Xopenex] 1.25 mg INHALATION Q4H PRN 02/10/21 02/27/21 azithromycin 250 mg PO MOWEFR 02/27/21 02/27/21 dicyclomine 10 mg PO TID 02/27/21 02/27/21 multivitamin 1 tab PO DAILY 02/27/21 02/27/21 Previous Rx's Medication Instructions Recorded albuterol sulfate 90 mcg/actuation 2 inh INHALATION Q4-6H PRN #1 ea 07/27/20 breath activated powder inhaler prednisone 10 mg tablet 10 mg PO DAILY 30 Days #30 tab 10/13/20 amlodipine 1 tab PO DAILY 30 Days #30 tab 03/20/21 lorazepam 0.5 mg PO TID 30 Days #90 tab 03/20/21 nortriptyline 10 mg PO BEDTIME 30 Days #30 cap 03/20/21 quetiapine 25 mg PO DIRECTED 30 Days #45 03/20/21 tab Discharge Plan Discharge Patient Disposition: Home, Self-Care Discharge Diagnosis: major depression recurrent severe generalized anxiety dx copd memory processing post ect Referrals: Vika Wilburn (psychiatry) [Other] - 04/04/21 2:20 pm (This appointment is via Telehealth) Vika Wiblurn (psychiatry) [Other] - 05/02/21 9:20 am (This appointment is via Telehealth) Laurie Herrera (therapy) [Other] - 03/22/21 2:00 pm (This appointment is via Telehealth) [place] Neely ([place] [facility]) [Other] - 1 Week (Please contact [place] at the above number after Saturday03/27/21 to check in and explore the community resources and referrals she can offer you) Justa Bone MD [Primary Care Provider] - 1 Week Discharge Medications: New nortriptyline 10 mg Capsule 10 mg PO BEDTIME 30 Days Qty: 30 RF: 0 quetiapine 25 mg Tablet 25 mg PO DIRECTED 30 Days Qty: 45 RF: 0 nortriptyline 10 mg capsule 10 mg PO BEDTIME Qty: 30 RF: 1 lorazepam 0.5 mg tablet 0.5 mg PO DIRECTED 30 Days Qty: 180 RF: 1 lorazepam 1 mg tablet 1 mg PO DIRECTED 30 Days Qty: 90 RF: 0 Continued ProAir RespiClick 90 mcg/actuation aerosol powdr breath activated 2 inh inhalation Q4-6H PRN (Reason: Shortness Of Breath) Qty: 1 RF: 3 tiotropium bromide [Spiriva Respimat] 2.5 mcg/actuation mist 2 puff PO DAILY Qty: 4 RF: 11 fluticasone propion-salmeterol [Advair Diskus] 500-50 mcg/dose Blister With Device 1 inh INHALATION BID RF: 0 levalbuterol HCl [Xopenex] 1.25 mg/3 mL Solution For Nebulization 1.25 mg INHALATION Q4H PRN (Reason: Shortness Of Breath Or Wheezing) RF: 0 famotidine 40 mg Tablet 40 mg PO BEDTIME RF: 0 multivitamin Tablet 1 tab PO DAILY RF: 0 azithromycin 250 mg tablet 250 mg PO MOWEFR RF: 0 amlodipine 10 mg tablet 1 tab PO DAILY 30 Days Qty: 30 RF: 0 ascorbic acid (vitamin C) 1,000 mg tablet 1,000 mg PO DAILY RF: 0 cholecalciferol (vitamin D3) 25 mcg (1,000 unit) capsule 50 mcg PO DAILY RF: 0 prednisone 10 mg tablet 10 mg PO DAILY 30 Days Qty: 30 RF: 4 Discontinued levalbuterol tartrate 45 mcg/actuation HFA aerosol inhaler 2 puff inhalation Q4H PRN (Reason: shortness of breath or wheezing) Qty: 15 RF: 11 propranolol 10 mg Tablet 10 mg PO TID RF: 0 No Action dicyclomine 10 mg capsule 10 mg PO TID RF: 0 levalbuterol tartrate 45 mcg/actuation HFA aerosol inhaler 2 puff inhalation Q4H PRN (Reason: wheezing) RF: 0 levalbuterol HCl [Xopenex] 1.25 mg/3 mL solution for nebulization 1.25 mg inhalation BID 30 Days Qty: 180 RF: 11 levalbuterol tartrate [Xopenex HFA] 45 mcg/actuation HFA aerosol inhaler 2 puff PO Q6H PRN (Reason: shortness of breath or wheezing) 30 Days Qty: 15 RF: 11 Trelegy Ellipta 200-62.5-25 mcg blister with device 1 inh inhalation DAILY 30 Days Qty: 60 RF: 12 prednisone 5 mg tablet 5 mg PO DAILY 14 Days Qty: 49 RF: 0 Discharge Orders: Discharge Order (Routine); Ordered 03/20/21 Ordered By: Nacho Peña Diet: advance to usual diet Activity on Discharge: per pulmon Stand Alone Forms: Patient Portal Discharge page Care Plan Goals: stable mood memory improvement decreased anxiety Health Concerns: depression copd generalized anxiety Plan of Treatment: medication therapy primary care pulmonary rehab ? ect as tolerated march [address] peña [phone] this sat or to touch base regarding ect ect scheduled for Assessment: some improvement still flat memory impairment noted Discharge Date/Time: 03/20/21 15:00 Mental Status Exam Mental Status Exam Patient Appearance: Appropriate Level of Consciousness: Awake Patient Behavior: Appropriate and Guarded Affect Description: Flat and Apprehensive Patient Cognition Impaired: Yes Ability to Follow Directions: Good Memory Description: Episodic Impaired Hallucinations: None Delusions: Not Present Thought Process: Distracted and Rumination Thought Content: positive for Poverty of Content, negative for Suicidal Ideation and positive for Homicidal Ideation Data Data Completed and Pending Completed studies during hospitalization [Text1]: 03/17/21 03/18/21 18:28 07:25 WBC 5.5 RBC 4.60 Hgb 13.9 L Hct 41.3 L MCV 89.8 MCH 30.2 MCHC 33.7 RDW 13.0 Plt Count 225 MPV 8.6 L Immature Gran % (Auto) 0.4 Neut % (Auto) 48.4 Lymph % (Auto) 37.3 Garden % (Auto) 11.0 Eos % (Auto) 2.5 Baso % (Auto) 0.4 Lymph # (Auto) 2.1 Garden # (Auto) 0.6 Eos # (Auto) 0.1 Baso # (Auto) 0.0 Abs Immat Gran (auto) 0.02 Absolute Neuts (auto) 2.7 Absolute Nucleated RBC 0.000 Nucleated RBC % (auto) 0.0 Sodium 140 Potassium 3.8 Chloride 105 Carbon Dioxide 25 Anion Gap 14 BUN 8 L Creatinine 0.80 Estim Creat Clear Calc 88.9 Estimated GFR > 60 Random Glucose 104 Calcium 9.5 Total Bilirubin 0.3 AST 22 ALT 40 Alkaline Phosphatase 56 Total Protein 7.0 Albumin 4.4 DS: Summary Hospital Course Hospital Course: Signed Patient: Jameel Cameron RMR#: [id number]: 2Acct: [id number]/Sex: 71 / [id number]: Nacho Peña MD cc: ~ HPI Chief Complaint: depression Sources of Information: patient interviewed and chart reviewed HPI Subjective Notes: Conditional Voluntary Guardianship: No Medical Problems Affecting Mental Status: No Narrative: Patient is a 71-year-old male patient outpatient of [facility] nurse practitioner Patient has a history of recurrent depression anxiety complicated by COPD. Has a history of past good response to ECT but has been complicated by worsening COPD and ASHD. Have avoided retreating with ECT secondary to above. He has failed trial of TMS he multiple SSRIs most recently Trintellix mirtazapine now discontinued. The question has been raised regarding the possibility of an MAO inhibitor. Patient most recently has been on lorazepam 1 t.i.d. olanzapine 5 mg at bedtime 2.5 mg the morning as needed. Patient remains paralyzed with anxiety hopeless helpless depressed marked difficulty in functioning concentration ability to enjoy things became increasingly overwhelmed thoughts he might be better off but no clear plan of self-harm. No psychotic symptoms patient does have a history of past psychiatric hospitalization. 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 Past Psychiatric History: History of good response to ECT past history of panic disorder has not been able to stabilize now for number of years despite outpatient therapy counseling partial hospital ongoing treatment with a nurse practitioner Trina iverson Medical Evaluation Reviewed: Hospitalist Shaylaal Pending chronic copd recent prednisone [facility] Medical History Abnormal nuclear stress test CAD (coronary artery disease) Chronic respiratory failure COPD (chronic obstructive pulmonary disease) Depression HLD (hyperlipidemia) Major depressive disorder, recurrent episode, severe with anxious distress Pneumonitis Pre-op evaluation Preop cardiovascular exam Smoking Surgical History Stented coronary artery Social History: 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 He has a supportive family including sister and mother Trauma History: no history of sexual or physical trauma Diagnostics Vital Signs (24Hr):Vital Signs - 24 hr 02/10/21 09:21 Temperature 98.7 F Pulse Rate 84 Respiratory Rate 17 Blood Pressure 150/84 H Pulse Oximetry 97 Body Mass Index 29.0 Labs Results: 02/10/21 10:12 document embedded image 02/10/21 10:12 document embedded image Labs:Laboratory Results - last 48 hr 02/10/21 02/10/21 02/10/21 10:12 10:12 10:12 WBC 10.9 H RBC 5.23 Hgb 15.8 Hct 48.1 MCV 92.0 MCH 30.2 MCHC 32.8 RDW 12.5 Plt Count 222 MPV 8.6 L Immature Gran % (Auto) 0.5 H Neut % (Auto) 51.4 Lymph % (Auto) 37.3 Garden % (Auto) 9.2 Eos % (Auto) 1.1 Baso % (Auto) 0.5 Lymph # (Auto) 4.1 Garden # (Auto) 1.0 Eos # (Auto) 0.1 Baso # (Auto) 0.1 Abs Immat Gran (auto) 0.05 H Absolute Neuts (auto) 5.6 Absolute Nucleated RBC 0.000 Nucleated RBC % (auto) 0.0 Sodium 143 Potassium 4.0 Chloride 104 Carbon Dioxide 31 H Anion Gap 12 BUN 17 H Creatinine 0.96 Estim Creat Clear Calc 75.2 Estimated GFR > 60 Random Glucose 78 Calcium 9.7 D Total Bilirubin 0.5 AST 12 ALT 20 Alkaline Phosphatase 44 Total Protein 7.1 Albumin 4.4 Urine Color Urine Appearance Urine pH Ur Specific [place] Urine Protein Urine Glucose (UA) Urine Ketones Urine Blood Urine Nitrite Ur Leukocyte Esterase Urine RBC Urine WBC Ur Squamous Epith Cells Urine Bacteria Urine Opiates Screen Ur Barbiturates Screen Ur Phencyclidine Scrn Ur Amphetamines Screen U Benzodiazepines Scrn Urine Cocaine Screen U Marijuana (THC) Screen COVID-19 (MARRY) Negative COVID-19 Clin Com See Note 02/10/21 02/10/21 11:28 11:28 WBC RBC Hgb Hct MCV MCH MCHC RDW Plt Count MPV Immature Gran % (Auto) Neut % (Auto) Lymph % (Auto) Garden % (Auto) Eos % (Auto) Baso % (Auto) Lymph # (Auto) Garden # (Auto) Eos # (Auto) Baso # (Auto) Abs Immat Gran (auto) Absolute Neuts (auto) Absolute Nucleated RBC Nucleated RBC % (auto) Sodium Potassium Chloride Carbon Dioxide Anion Gap BUN Creatinine Estim Creat Clear Calc Estimated GFR Random Glucose Calcium Total Bilirubin AST ALT Alkaline Phosphatase Total Protein Albumin Urine Color YELLOW Urine Appearance CLEAR Urine pH 6.0 Ur Specific [place] 1.015 Urine Protein NEG Urine Glucose (UA) NEG Urine Ketones 5 Urine Blood NEG Urine Nitrite NEG Ur Leukocyte Esterase NEG Urine RBC 0 Urine WBC 0 Ur Squamous Epith Cells NONE Urine Bacteria NONE Urine Opiates Screen Not Detected Ur Barbiturates Screen Not Detected Ur Phencyclidine Scrn Not Detected Ur Amphetamines Screen Not Detected U Benzodiazepines Scrn Not Detected Urine Cocaine Screen Not Detected U Marijuana (THC) Screen Not Detected COVID-19 ([facility]ARRY) COVID-19 Clin Com Meds/Allergies Meds Home Medications Acetaminophen (Acetaminophen 325 Mg Tablet) 650 mg PO Q6H PRN PRN Reason: Headache/Pain Mild Scale (1-3) Al Hydroxide/Mg Hydroxide (Magnesium Hydrox/Alum Hydrox 30 Ml Oral.Susp) 30 ml PO Q6H PRN PRN Reason: Heartburn/Nausea Last Admin: 02/10/21 14:02 Dose: 30 ml Documented by: Albuterol Sulfate (Albuterol Sulfate 90 Mcg 8 Gm Inhaler) 2 puff INHALE Q4H PRN PRN Reason: Shortness Of Breath Last Admin: 02/10/21 14:32 Dose: 2 puff Documented by: Alprazolam (Alprazolam 0.25 Mg Tablet) 0.25 mg PO TID [facility] Last Admin: 02/10/21 20:11 Dose: 0.25 mg Documented by: Alprazolam (Alprazolam 0.25 Mg Tablet) 0.25 mg PO BID PRN PRN Reason: anxiety/restlessness Last Admin: 02/10/21 18:29 Dose: 0.25 mg Documented by: Amlodipine Besylate (Amlodipine Besylate 10 Mg Tablet) 10 mg PO DAILY [facility]; Protocol Ascorbic Acid (Ascorbic Acid 500 Mg Tablet) 1,000 mg PO DAILY [facility] Dicyclomine HCl (Dicyclomine Hcl 10 Mg Capsule) 10 mg PO TID [facility] Last Admin: 02/10/21 21:04 Dose: Not Given Documented by: Divalproex Sodium (Divalproex Sodium Sprinkles 125 Mg Cap.Dr.Spr) 125 mg PO TID [facility] Last Admin: 02/10/21 20:11 Dose: 125 mg Documented by: Famotidine (Famotidine 20 Mg Tablet) 40 mg PO BEDTIME [facility] Last Admin: 02/10/21 20:11 Dose: 40 mg Documented by: Fluticasone/Vilanterol (Fluticasone/Vilanterol 200/25 Blst.W.Dev) 1 puff INHALE RDAILY [facility] Magnesium Hydroxide (Milk Of Magnesia 30 Ml Oral.Susp) 30 ml PO DAILY PRN PRN Reason: Constipation Multivitamins/Minerals (Multivitamin With Minerals Tablet) 1 tab PO DAILY [facility] Patient Own Medication ( Levalbuterol Hcl 45mcg/Actation) 1 each INHALE Q4H PRN PRN Reason: Shortness Of Breath Or Wheezing Olanzapine (Olanzapine 5 Mg Tablet) 5 mg PO BEDTIME [facility] Last Admin: 02/10/21 20:11 Dose: 5 mg Documented by: Olanzapine (Olanzapine 2.5 Mg Tablet) 2.5 mg PO Q6H PRN PRN Reason: Anxiety Prednisone (Prednisone 10 Mg Tablet) 10 mg PO DAILY [facility] Propranolol HCl (Propranolol Hcl 10 Mg Tablet) 10 mg PO TID [facility]; Protocol Last Admin: 02/10/21 20:10 Dose: 10 mg Documented by: Tiotropium [place] (Tiotropium [place] 18 Mcg Cap.W.Dev) 2 puff INHALE RDAILY [facility] Trazodone HCl (Trazodone Hcl 50 Mg Tablet) 50 mg PO BEDTIME PRN PRN Reason: Insomnia Vitamin D (Cholecalciferol (Vitamin D3) 25 Mcg Tablet) 50 mcg PO DAILY [facility] Allergies Allergies Allergy/AdvReac Type Severity Reaction Status Date / Time lamotrigine [From LAMICTAL] Allergy Severe agitation Verified 01/20/21 11:33 and anxiety with titration codeine [CODEINE] Allergy Intermediate INSOMNIA Verified 01/20/21 11:33 Penicillins [PENICILLINS] Allergy Intermediate RASH Verified 01/20/21 11:33 epinephrine [EPINEPHRINE] AdvReac Intermediate Hypertensio Verified 01/20/21 11:33 n escitalopram [From LEXAPRO] AdvReac Intermediate NIGHTMARES Verified 01/20/21 11:33 sertraline [From ZOLOFT] AdvReac Intermediate NIGHTMARES Verified 01/20/21 11:33 sulfamethoxazole AdvReac Intermediate STOMACH Verified 01/20/21 11:33 [From BACTRIM] UPSET Mental Status Exam Mental Status Exam Patient Orientation: Person, Place, Time and Situation Level of Consciousness: Awake and Alert Patient Behavior: Cooperative Mood Description: Anxious, Sad and Apprehensive Affect Description: Anxious, Sad and Apprehensive Patient Cognition Impaired: No Speech Pattern: Clear and Spontaneous Speech Memory Description: Immediate Impaired and Working Impaired Hallucinations: None Delusions: Not Present Thought Process: Rumination Thought Content: positive for Obsessional Thoughts and positive for Preoccupation Depressive Symptoms: Increased Anxiety Judgement: Good Assessment & Plan Assessment & Plan (1) Major depressive disorder, recurrent episode, severe with anxious distress: Status: Acute Code(s): F33.2 - Major depressive disorder, recurrent severe without psychotic features (2) COPD (chronic obstructive pulmonary disease): Status: Acute Qualifiers: COPD type: emphysema Emphysema type: centrilobular Qualified Code(s): J43.2 - Centrilobular emphysema Code(s): J44.9 - Chronic obstructive pulmonary disease, unspecified (3) 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 HOSPITAL COURSE [facility] he had rapidly discontinued alprazolam and Depakote and appear to be in some form of withdrawal delirium. He had a great deal difficulty processing information was started back on alprazolam to counter act withdrawal and low-dose Depakote. The patient did eventually show significant improvement in mentation. He had initially been somewhat suspicious paranoid regarding motives and difficulty taking in information this did improved. Because the patient had not responded to medication multiple trials and/or having side effects from multiple classes of medication the patient is partner and this underwriter mortgage loan decided on a course of ECT which she had responded to previously. The patient was seen by cardiology in the felt he was an acceptable risk for ECT. They did recommend Cardiology for follow-up to use alternative means to treat the patient's hyperlipidemia he was unable to tolerate statins in the past the patient did have a course of 6 bifrontal ECT treatments. Unfortunately after the last treatment there was post ECT confusional state that gradually improved over the next few days. His last treatment had been bifrontal since he had shown significant improvement with unilateral treatment any had had bifrontal treatments in the past and had tolerated this previously. The patient was scheduled for ECT post discharge in approximately a week. If he does not respond to ECT is suggested consideration of M Dwayne and MAOI patch patient was alert cooperative time of discharge somewhat preoccupied he new year place month but somewhat slowed mentation I had suggested also that the patient's partner Emeka browns use some FMLA time patient at home had always decompensated when alone generally prior to consideration of an MAO I the patient was started on nortriptyline this should be gradually increased as tolerated. Patient has failed multiple SSRIs and Wellbutrin low-dose Seroquel was given and Ativan. Patient was advised strongly to not suddenly discontinue Ativan which could precipitate another withdrawal syndrome Time spent discussing smoking cessation with patient: 3 to 10 minutes Status at Discharge Cognitive/behavioral status at discharge: patient with somewhat slowed mentation flat some short-term memory disturbance. Future oriented less depressed less anxious Functional status at discharge: independent ambulation Overall status at discharge: patient is progressing back to baseline Time Spent with Patient Time attestation: Total time spent providing and/or coordinating discharge services:
--- NOTE | 2021-03-20 14:28 | PC.NURSE ---
Patient is alert and oriented x3 and free from confusion. Patient states readiness for discharge as well as plans to attend discharge meeting this afternoon. Patient is dressed in his own clothing with appropriate hygiene. He rates chronic anxiety 05/02, utilizing Lorazepam and Seroquel as needed according to M.D. Orders. Patient denies suicidal/homicidal ideation as well as auditory/visual hallucinations and pain. Patient reports his depression is directly linked to whether or not I can go home today, with patient advocating for return to home in community. Patient reports home is safe and he feels supported by partner. Discharge paperwork reviewed with patient and partner.
== END 2021-03-20 15:00 | disposition home or self-care (01) | DRG 885 ==
LOC: HO.ED 16:25 → HO.PM5 19:41 → HO.PGERI 02-28 15:46
PROVIDERS: Psychiatry & Neurology Psychiatry; Admitting Provider Psychiatry & Neurology Psychiatry; Emergency Provider Emergency Medicine; PCP Internal Medicine; Visit Provider Psychiatry & Neurology Psychiatry
PROC: GZB4ZZZ Other Electroconvulsive Therapy (ICD-10-PCS; CPT 90870; principal; 2021-03-06 15:20)
DX: F33.2 Major depressive disorder, recurrent severe without psychotic features (principal); R45.851 Suicidal ideations; F41.1 Generalized anxiety disorder; I25.10 Atherosclerotic heart disease of native coronary artery without angina pectoris; F40.01 Agoraphobia with panic disorder; J44.9 Chronic obstructive pulmonary disease, unspecified; Z20.822 Contact with and (suspected) exposure to COVID-19; Z87.891 Personal history of nicotine dependence; Z88.0 Allergy status to penicillin; Z88.5 Allergy status to narcotic agent; Z79.899 Other long term (current) drug therapy
CPT/HCPCS: 36415; 80053; 80164; 80307; 82077; 85025; 87635; 90870; 93005; 94640; 99285; J0330; J1885; J2060; J2250; J2405

== ENCOUNTER → 2021-03-30 10:54 | Outpatient (BNVA) | payer OTHER, SELFPAY | PROVIDERS: Visit Provider Hospitalist | DX: G47.33 Obstructive sleep apnea (adult) (pediatric) (principal); J96.11 Chronic respiratory failure with hypoxia; J43.2 Centrilobular emphysema ==

== ENCOUNTER 2021-04-02 03:26 | Emergency (ER) | payer OTHER, SELFPAY ==
--- NOTE | ~2021-04-02 | XR_ITS ---
EXAMINATION: XR CHEST CLINICAL INFORMATION: Shortness of breath COMPARISON: 09/12/2020 TECHNIQUE: Frontal view of the chest was obtained. FINDINGS: The lungs are well expanded. There is known emphysema. There is no focal consolidation, edema, or effusion. Minimal bibasilar atelectasis. No pneumothorax. The cardiomediastinal silhouette is within normal limits. No acute osseous abnormality. XR/XR chest 1V IMPRESSION: Minimal bibasilar atelectasis. Emphysema. Otherwise clear lungs.
--- NOTE | ~2021-04-02 | CT_ITS ---
EXAMINATION: CT ABDOMEN AND PELVIS WITH CONTRAST CLINICAL INFORMATION: Abdominal pain. COMPARISON: 03/16/2019 TECHNIQUE: Multidetector volumetric images were obtained from the superior aspect of the liver through the pubic symphysis following administration 85 mL of Omnipaque 350 intravenous contrast. Sagittal and coronal reformatted images were obtained on the technologist's workstation. Oral contrast: No. This CT examination was performed using dose optimization techniques as appropriate, variously including the following: Automated exposure control. Adjustment of mA and/or kV according to patient size (this includes techniques or standardized protocols for targeted exams where dose is matched to indication/reason for exam; i.e. extremities or head). Use of iterative reconstruction technique. DLP: 592 mGy-cm FINDINGS: LUNG BASES: Emphysematous changes in bilateral lower lungs. LIVER, GALLBLADDER, AND BILIARY TREE: The liver is normal in size, shape, and attenuation. No focal hepatic lesion or biliary ductal dilatation is present. Status post cholecystectomy. PANCREAS: Unremarkable. SPLEEN: Unremarkable. ADRENAL GLANDS: Unremarkable. KIDNEYS AND URETERS: The kidneys are normal in size, shape, and attenuation. No hydronephrosis, hydroureter, or calculi seen. No perinephric stranding. BLADDER: Unremarkable. GASTROINTESTINAL TRACT: The stomach is nondistended. No dilated small bowel loops. Nonobstructive bowel gas pattern. Scattered colonic diverticuli without evidence of diverticulitis. There is mild mural thickening of the ascending colon in the right portion of the transverse colon, descending colon and sigmoid colon. In part, this appearance could be due to lack of distention, but raises a possibility of underlying colitis. No pericolonic inflammatory changes are seen. No free fluid. No free air. Normal appendix. ABDOMINAL WALL: No significant hernia is appreciated. LYMPH NODES: No enlarged lymph nodes are seen. VASCULAR: Moderate atherosclerotic vascular calcification. No aneurysmal dilatation of the aorta. PELVIC VISCERA: Enlarged prostate measuring 4.9 cm transverse. Seminal vesicles appear unremarkable. OSSEOUS STRUCTURES: No acute or suspicious osseous abnormality. Scattered mild degenerative changes in the spine. CT/CT abdomen pelvis w con IMPRESSION: 1. Colonic diverticulosis without evidence of diverticulitis. There is mild mural thickening of the large colon, with sparing of the portion of the transverse colon. This may be related to lack of distention versus other etiologies such as underlying colitis. No pericolonic inflammatory changes are seen. No bowel obstruction. 2. No acute findings are otherwise identified in the abdomen. 3. Emphysematous changes in bilateral lower lungs. 4. Status post cholecystectomy. 5. Mildly enlarged prostate.
[2021-04-02 03:45] VITALS: BP 132/94; PULSE 109; RESP 24; TEMP 36.6; O2SAT 98; BMI 28.1
[2021-04-02 03:56] VITALS: BP 132/94; PULSE 109; RESP 24; TEMP 36.6; O2SAT 98; BMI 28.1
[2021-04-02 04:00] VITALS: RESP 22
--- NOTE | 2021-04-02 05:30 | ECG_ITS ---
Test Reason : ABD PAIN Blood Pressure : / mmHG Vent. Rate : 092 BPM Atrial Rate : 092 BPM P-R Int : 138 ms QRS Dur : 084 ms QT Int : 362 ms P-R-T Axes : 071 048 042 degrees QTc Int : 447 ms Normal sinus rhythm Normal ECG When compared with ECG of 27-FEB-2021 16:38, Nonspecific T wave abnormality no longer evident in Inferior leads Referred By: Paige Mercado Electronically Signed By:SMITH MONDRAGON
--- NOTE | 2021-04-02 05:32 | ED_ITS ---
HPI - Abdominal Pain General Chief Complaint: Dyspnea Stated Complaint: SoB , general medical Time Seen by Provider: 04/02/21 05:20 History of Present Illness HPI narrative: Patient is 71-year-old male with a history of COPD. Status post cholecystectomy many years ago. Presents today with having abdominal pain in the epigastric area bandlike been ongoing for lytes +2 days. No vomiting. Positive decreased appetite. No bowel movement. No cough and no congestion. Patient dose of steroid was increased from 10 mg of prednisone to 20 mg of prednisone. Baseline patient is on azithromycin prophylactically 3 times a week. No leg swelling. Positive history of coronary artery disease. Patient has stents placed. Symptoms seems to be worse with movement. Related Data Home Medications Medication Instructions Recorded Confirmed ascorbic acid (vitamin C) 1,000 mg 1,000 mg PO DAILY 07/21/20 03/30/21 tablet cholecalciferol (vitamin D3) 25 50 mcg PO DAILY cap 07/21/20 03/30/21 mcg (1,000 unit) capsule famotidine 40 mg PO BEDTIME 02/10/21 03/30/21 fluticasone propion-salmeterol 1 inh INHALATION BID 02/10/21 03/30/21 [Advair Diskus] levalbuterol HCl [Xopenex] 1.25 mg INHALATION Q4H PRN 02/10/21 03/30/21 azithromycin 250 mg PO MOWEFR 02/27/21 03/30/21 multivitamin 1 tab PO DAILY 02/27/21 03/30/21 dicyclomine 10 mg capsule 10 mg PO TID 03/30/21 03/30/21 levalbuterol tartrate 45 2 puff INHALATION Q4H PRN 03/30/21 03/30/21 mcg/actuation aerosol inhaler Previous Rx's Medication Instructions Recorded albuterol sulfate 90 mcg/actuation 2 inh INHALATION Q4-6H PRN #1 ea 07/27/20 breath activated powder inhaler prednisone 10 mg tablet 10 mg PO DAILY 30 Days #30 tab 10/13/20 amlodipine 1 tab PO DAILY 30 Days #30 tab 03/20/21 nortriptyline 10 mg PO BEDTIME #30 cap 03/20/21 nortriptyline 10 mg PO BEDTIME 30 Days #30 cap 03/20/21 quetiapine 25 mg PO DIRECTED 30 Days #45 03/20/21 tab tiotropium bromide 2.5 2 puff PO DAILY #4 ml 03/21/21 mcg/actuation mist for inhalation lorazepam 0.5 mg PO DIRECTED 30 Days #180 03/22/21 tab lorazepam 1 mg PO DIRECTED 30 Days #90 tab 03/23/21 fluticasone fur. 200 mcg-umeclid 1 inh INHALATION DAILY 30 Days #60 03/30/21 62.5 mcg-vilant 25 mcg ea inhalat.powder levalbuterol HCl 1.25 mg/3 mL 1.25 mg INHALATION BID 30 Days 03/30/21 solution for nebulization #180 ml levalbuterol tartrate 45 2 puff PO Q6H PRN 30 Days #15 g 03/30/21 mcg/actuation aerosol inhaler prednisone 5 mg tablet 5 mg PO DAILY 14 Days #49 tab 03/30/21 Allergies Allergy/AdvReac Type Severity Reaction Status Date / Time lamotrigine [From LAMICTAL] Allergy Severe agitation Verified 03/30/21 11:25 and anxiety with titration codeine [CODEINE] Allergy Intermediate INSOMNIA Verified 03/30/21 11:25 Penicillins [PENICILLINS] Allergy Intermediate RASH Verified 03/30/21 11:25 epinephrine [EPINEPHRINE] AdvReac Intermediate Hypertensio Verified 03/30/21 11:25 n escitalopram [From LEXAPRO] AdvReac Intermediate NIGHTMARES Verified 03/30/21 11:25 sertraline [From ZOLOFT] AdvReac Intermediate NIGHTMARES Verified 03/30/21 11:25 sulfamethoxazole AdvReac Intermediate STOMACH Verified 03/30/21 11:25 [From BACTRIM] UPSET Review of Systems Review of Systems Positive shortness of breath positive abdominal pain positive decreased p.o. intake positive no bowel movement. Yes all other systems are reviewed and are negative Physical Exam Vital Signs: Vital Signs: Last Vital Signs Temp 97.9 F 04/02/21 03:56 Pulse 55 04/02/21 06:00 Resp 15 04/02/21 06:21 BP 110/56 L 04/02/21 06:00 Pulse Ox 98 04/02/21 06:00 Oxygen Flow Rate 2 04/02/21 03:45 Body Mass Index 28.1 Appearance: Alert. Oriented X3. No acute distress. Eyes: Pupils equal, round and reactive to light. ENT: Pharynx normal. Neck: Normal inspection. Neck supple. No lymph nodes noted. No crepitus CVS: Normal heart rate and rhythm. Pulses normal. Normal S1 and S2 Respiratory: Diminished breath sounds bilaterally Abdomen: Soft mild epigastric tenderness. No rigidity. No distention. good BS x4 Skin: Skin warm and dry. Normal skin color. Normal skin turgor. Extremities: No lower extremity edema. Neurovascular intact to all extremities. No Lacerations. No Rash Neuro: Oriented X 3. No motor deficit. No sensory deficit. Moving all extermities. No slurred speech MDM - Abdominal Pain MDM Narrative Medical decision making narrative: Patient complaining of bandlike abdominal pain in the epigastric area. White count was normal. Lipase is normal no evidence of pancreatitis liver profile is normal. Patient's EKG showed a sinus pattern heart rate was 90 MN QRS QT within normal limits is no acute ST segment elevation in the setting of negative troponin pain going on more than 6 hours unlikely secondary to ACS. Patient's chest x-ray was negative for infiltrate. CT scan of the abdomen is currently pending as patient have excruciating abdominal pain. In stable condition. Lab Data Result diagrams: 04/02/21 05:58 04/02/21 05:58 Labs: Lab Results 04/02/21 04/02/21 04/02/21 Range/Units 05:58 05:58 05:58 WBC 8.1 (4.8-10.8) X10*3/uL RBC 5.33 (4.60-5.80) X10*6/uL Hgb 16.0 (14.0-18.0) g/dl Hct 46.5 (42-52) % MCV 87.2 (80-98) fL MCH 30.0 (27.0-33.0) pg MCHC 34.4 (31.0-36.0) g/dl RDW 12.9 (11.0-16.0) % Plt Count 302 D (160-400) X10*3/uL MPV 8.5 L (9.4-12.4) fL Immature Gran % (Auto) 0.2 (0.0-0.4) % Neut % (Auto) 59.4 (45-73) % Lymph % (Auto) 29.5 (20-40) % [place] % (Auto) 9.6 (2-11) % Eos % (Auto) 0.7 (0-4) % Baso % (Auto) 0.6 (0-2) % Lymph # (Auto) 2.4 (1.2-4.9) X10*3/uL [place] # (Auto) 0.8 (0.1-1.2) X10*3/uL Eos # (Auto) 0.1 (0.0-0.4) X10*3/uL Baso # (Auto) 0.1 (0.0-0.2) X10*3/uL Abs Immat Gran (auto) 0.02 (0.00-0.03) X10*3/uL Absolute Neuts (auto) 4.8 (2.0-8.3) X10*3/uL Absolute Nucleated RBC 0.000 (0.0-0.012) X10*3/uL Nucleated RBC % (auto) 0.0 (0.0-0.2) /100WBC Sodium 139 (135-145) mmol/L Potassium 3.6 (3.3-5.1) mmol/L Chloride 105 (96-108) mmol/L Carbon Dioxide 22 (22-29) mmol/L Anion Gap 16 (12-20) BUN 16 D (9-16) mg/dL Creatinine 0.81 (0.5-1.4) mg/dL Estim Creat Clear Calc 88.0 Estimated GFR > 60 Random Glucose 92 (60-115) mg/dL Calcium 9.7 (8.4-10.2) mg/dL Total Bilirubin 0.7 (0.0-1.0) mg/dL AST 21 (5-37) U/L ALT 34 (0-40) U/L Alkaline Phosphatase 49 (39-117) U/L Troponin I High Sens 4.3 (<3.5-35.0) ng/L Total Protein 7.2 (6.5-8.0) g/dL Albumin 4.6 (3.5-5.0) g/dL Lipase 23 (8-78) U/L Urine Color Urine Appearance Urine pH (5.0-8.0) Ur Specific [place] (1.005-1.025) Urine Protein (NEG-TRACE) MG/DL Urine Glucose (UA) (NEG) MG/DL Urine Ketones (NEG) MG/DL Urine Blood (NEG) Urine Nitrite (NEG) Ur Leukocyte Esterase (NEG) COVID-19 ([facility]) (Negative) COVID-19 Clin Com 04/02/21 04/02/21 Range/Units 06:00 06:23 WBC (4.8-10.8) X10*3/uL RBC (4.60-5.80) X10*6/uL Hgb (14.0-18.0) g/dl Hct (42-52) % MCV (80-98) fL MCH (27.0-33.0) pg MCHC (31.0-36.0) g/dl RDW (11.0-16.0) % Plt Count (160-400) X10*3/uL MPV (9.4-12.4) fL Immature Gran % (Auto) (0.0-0.4) % Neut % (Auto) (45-73) % Lymph % (Auto) (20-40) % [place] % (Auto) (2-11) % Eos % (Auto) (0-4) % Baso % (Auto) (0-2) % Lymph # (Auto) (1.2-4.9) X10*3/uL [place] # (Auto) (0.1-1.2) X10*3/uL Eos # (Auto) (0.0-0.4) X10*3/uL Baso # (Auto) (0.0-0.2) X10*3/uL Abs Immat Gran (auto) (0.00-0.03) X10*3/uL Absolute Neuts (auto) (2.0-8.3) X10*3/uL Absolute Nucleated RBC (0.0-0.012) X10*3/uL Nucleated RBC % (auto) (0.0-0.2) /100WBC Sodium (135-145) mmol/L Potassium (3.3-5.1) mmol/L Chloride (96-108) mmol/L Carbon Dioxide (22-29) mmol/L Anion Gap (12-20) BUN (9-16) mg/dL Creatinine (0.5-1.4) mg/dL Estim Creat Clear Calc Estimated GFR Random Glucose (60-115) mg/dL Calcium (8.4-10.2) mg/dL Total Bilirubin (0.0-1.0) mg/dL AST (5-37) U/L ALT (0-40) U/L Alkaline Phosphatase (39-117) U/L Troponin I High Sens (<3.5-35.0) ng/L Total Protein (6.5-8.0) g/dL Albumin (3.5-5.0) g/dL Lipase (8-78) U/L Urine Color YELLOW Urine Appearance CLEAR Urine pH 6.0 (5.0-8.0) Ur Specific [place] 1.025 (1.005-1.025) Urine Protein NEG (NEG-TRACE) MG/DL Urine Glucose (UA) NEG (NEG) MG/DL Urine Ketones 15 (NEG) MG/DL Urine Blood NEG (NEG) Urine Nitrite NEG (NEG) Ur Leukocyte Esterase NEG (NEG) COVID-19 ([facility]) Negative (Negative) COVID-19 Clin Com See Note Discharge Plan Discharge Prescriptions: No Action ProAir RespiClick 90 mcg/actuation aerosol powdr breath activated 2 inh inhalation Q4-6H PRN (Reason: Shortness Of Breath) Qty: 1 RF: 3 tiotropium bromide [Spiriva Respimat] 2.5 mcg/actuation mist 2 puff PO DAILY Qty: 4 RF: 11 fluticasone propion-salmeterol [Advair Diskus] 500-50 mcg/dose Blister With Device 1 inh INHALATION BID RF: 0 levalbuterol HCl [Xopenex] 1.25 mg/3 mL Solution For Nebulization 1.25 mg INHALATION Q4H PRN (Reason: Shortness Of Breath Or Wheezing) RF: 0 famotidine 40 mg Tablet 40 mg PO BEDTIME RF: 0 multivitamin Tablet 1 tab PO DAILY RF: 0 azithromycin 250 mg tablet 250 mg PO MOWEFR RF: 0 nortriptyline 10 mg Capsule 10 mg PO BEDTIME 30 Days Qty: 30 RF: 0 quetiapine 25 mg Tablet 25 mg PO DIRECTED 30 Days Qty: 45 RF: 0 amlodipine 10 mg tablet 1 tab PO DAILY 30 Days Qty: 30 RF: 0 nortriptyline 10 mg capsule 10 mg PO BEDTIME Qty: 30 RF: 1 lorazepam 0.5 mg tablet 0.5 mg PO DIRECTED 30 Days Qty: 180 RF: 1 lorazepam 1 mg tablet 1 mg PO DIRECTED 30 Days Qty: 90 RF: 0 dicyclomine 10 mg capsule 10 mg PO TID RF: 0 levalbuterol tartrate 45 mcg/actuation HFA aerosol inhaler 2 puff inhalation Q4H PRN (Reason: wheezing) RF: 0 levalbuterol HCl [Xopenex] 1.25 mg/3 mL solution for nebulization 1.25 mg inhalation BID 30 Days Qty: 180 RF: 11 levalbuterol tartrate [Xopenex HFA] 45 mcg/actuation HFA aerosol inhaler 2 puff PO Q6H PRN (Reason: shortness of breath or wheezing) 30 Days Qty: 15 RF: 11 Trelegy Ellipta 200-62.5-25 mcg blister with device 1 inh inhalation DAILY 30 Days Qty: 60 RF: 12 prednisone 5 mg tablet 5 mg PO DAILY 14 Days Qty: 49 RF: 0 ascorbic acid (vitamin C) 1,000 mg tablet 1,000 mg PO DAILY RF: 0 cholecalciferol (vitamin D3) 25 mcg (1,000 unit) capsule 50 mcg PO DAILY RF: 0 prednisone 10 mg tablet 10 mg PO DAILY 30 Days Qty: 30 RF: 4 PMFSH Past Medical History Attestation statement: The following information was validated with the patient. Medical History Abnormal nuclear stress test CAD (coronary artery disease) Chronic respiratory failure COPD (chronic obstructive pulmonary disease) Generalized anxiety disorder HLD (hyperlipidemia) Major depressive disorder, recurrent episode, severe with anxious distress Pneumonitis Pre-op evaluation Preop cardiovascular exam Smoking Surgical History Stented coronary artery Family History Family History Father No problems noted. Mother No problems noted. Social History Social History Household Members: Unknown / Unable to assess Housing: House Do you presently have visiting nurse or other home services: No Unable to assess alcohol history related to: Unknown Alcohol intake: never Patient Tobacco Use Status: Former Tobacco user Quit Date: 3 months ago Tobacco use type: Cigarette Years Smoked: 40 e-Cigarette/Vaping Use: Former Use Second Hand Smoke Exposure: No Use of substances other than those prescribed or required for medical reasons: No Advance Directives: No service: No Sexual orientation: Lesbian/Triana/Homosexual
[2021-04-02 06:00] VITALS: BP 110/56; PULSE 55; RESP 14; O2SAT 98
[2021-04-02 06:02] LABS: MANUAL DIFF FLAG NO
[2021-04-02 06:05] LABS: Basophils Absolute Auto 0.1 X10*3/uL (0.0-0.2); Basophils Percent Auto 0.6 % (0-2); Eosinophils Absolute Auto 0.1 X10*3/uL (0.0-0.4); Eosinophils Percent Auto 0.7 % (0-4); Hematocrit 46.5 % (42-52); Imm Gran Abs Auto 0.02 X10*3/uL (0.00-0.03); Imm Gran Pct Auto 0.2 % (0.0-0.4); Lymphocytes Absolute Auto 2.4 X10*3/uL (1.2-4.9); Lymphocytes Percent Auto 29.5 % (20-40); Mean Corpuscular HGB Conc 34.4 g/dl (31.0-36.0); Mean Corpuscular Volume 87.2 fL (80-98); Mean Platelet Volume 8.5 fL (9.4-12.4); Monocytes Absolute Auto 0.8 X10*3/uL (0.1-1.2); Monocytes Percent Auto 9.6 % (2-11); Neutrophils Absolute Auto 4.8 X10*3/uL (2.0-8.3); Neutrophils Percent Auto 59.4 % (45-73); Platelet Count 302 X10*3/uL (160-400); Red Blood Count 5.33 X10*6/uL (4.60-5.80); Red Cell Distribution Width 12.9 % (11.0-16.0); White Blood Count 8.1 X10*3/uL (4.8-10.8)
[2021-04-02 06:21] VITALS: RESP 15
[2021-04-02] MEDS: 0.9 % Sodium Chloride 1,000 ML 999 ML IV (06:21)
[2021-04-02] MEDS: HYDROmorphone HCl 0.5 MG/0.5 ML SYRINGE IVPUSH (06:21)
[2021-04-02 06:26] LABS: Troponin-I High Sensitivity 4.3 ng/L (<3.5-35.0)
[2021-04-02 06:30] LABS: Glucose Urine UA NEG (NEG); Leukocyte Esterase Urine NEG (NEG); Nitrite Urine NEG (NEG); Specific Gravity - Urine 1.025 (1.005-1.025); Urine Blood NEG (NEG); Urine Ketones 15 MG/DL (NEG); Urine Protein NEG (NEG-TRACE)
[2021-04-02 06:31] LABS: Appearance Urine CLEAR; Color Urine YELLOW
[2021-04-02 06:32] LABS: Alanine Aminotransferase 34 U/L (0-40); Albumin Level 4.6 g/dL (3.5-5.0); Alkaline Phosphatase 49 U/L (39-117); Anion Gap 16 (12-20); Aspartate Amino Transferase 21 U/L (5-37); Bilirubin Total 0.7 mg/dL (0.0-1.0); Blood Urea Nitrogen 16 mg/dL (9-16); Calcium 9.7 mg/dL (8.4-10.2); Carbon Dioxide 22 mmol/L (22-29); Chloride 105 mmol/L (96-108); Estimated Glomerular Filt Rate > 60; Glucose Random 92 mg/dL (60-115); Lipase 23 U/L (8-78); Potassium 3.6 mmol/L (3.3-5.1); Sodium 139 mmol/L (135-145); Total Protein 7.2 g/dL (6.5-8.0)
[2021-04-02 06:33] LABS: COVID-19 Test Negative (Negative); IDNOW Serial# 9DD0AD1C
[2021-04-02] MEDS: iohexoL 350 MG/ML 100 ML INFUS..BTL 85 ML IV (07:01)
[2021-04-02] MEDS: traMADoL HCL 50 MG TABLET 25 MG PO (08:39)
[2021-04-02 10:00] VITALS: BP 106/68; PULSE 99; RESP 15; O2SAT 93
== END 2021-04-02 11:10 | disposition home or self-care (01) ==
PROVIDERS: Emergency Provider Emergency Medicine Emergency Medical Services; PCP Obstetrics & Gynecology
DX: J44.9 Chronic obstructive pulmonary disease, unspecified (principal); T38.0X5A Adverse effect of glucocorticoids and synthetic analogues, initial encounter; T36.3X5A Adverse effect of macrolides, initial encounter; G47.00 Insomnia, unspecified; R10.13 Epigastric pain; Y92.019 Unspecified place in single-family (private) house as the place of occurrence of the external cause; R06.02 Shortness of breath; Z90.49 Acquired absence of other specified parts of digestive tract; Z95.5 Presence of coronary angioplasty implant and graft; Z79.52 Long term (current) use of systemic steroids; Z79.899 Other long term (current) drug therapy; Z20.822 Contact with and (suspected) exposure to COVID-19
CPT/HCPCS: 36415; 71045; 74177; 80053; 81003; 83690; 84484; 85025; 87635; 93005; 96361; 96374; 99285; J1170; Q9967

== ENCOUNTER → 2021-04-10 14:04 | Outpatient (REF) | payer OTHER, SELFPAY | LOC: HO.SL 14:04 | PROVIDERS: PCP Internal Medicine Sports Medicine; Visit Provider Hospitalist | DX: G47.33 Obstructive sleep apnea (adult) (pediatric) (principal) | CPT/HCPCS: 95806 ==

== ENCOUNTER 2021-04-26 11:18 | Outpatient (REF) | payer OTHER, SELFPAY ==
[2021-04-26 13:55] LABS: Hematocrit 45.9 % (42-52); Hemoglobin 15.3 g/dl (14.0-18.0); Mean Corpuscular HGB Conc 33.3 g/dl (31.0-36.0); Mean Corpuscular Hemoglobin 29.9 pg (27.0-33.0); Mean Corpuscular Volume 89.6 fL (80-98); Mean Platelet Volume 9.3 fL (9.4-12.4); Platelet Count 338 X10*3/uL (160-400); Red Blood Count 5.12 X10*6/uL (4.60-5.80); Red Cell Distribution Width 13.2 % (11.0-16.0); White Blood Count 7.8 X10*3/uL (4.8-10.8)
[2021-04-26 14:35] LABS: Alanine Aminotransferase 51 U/L (0-40); Albumin Level 4.9 g/dL (3.5-5.0); Alkaline Phosphatase 61 U/L (39-117); Aspartate Amino Transferase 28 U/L (5-37); Bilirubin Direct 0.2 mg/dL (0.0-0.5); Bilirubin Total 0.6 mg/dL (0.0-1.0); Lipase 24 U/L (8-78); Total Protein 7.6 g/dL (6.5-8.0)
[2021-04-26 14:43] LABS: T4 Thyroxine 9.2 ug/dL (4.5-12.0); Thyroid Stimulating Hormone 0.92 uIU/mL (0.32-4.0)
== END 2021-04-26 11:19 | disposition home or self-care (01) ==
LOC: HO.10HDL 11:18
PROVIDERS: PCP Pediatrics; Visit Provider Internal Medicine Gastroenterology
DX: R10.9 Unspecified abdominal pain (principal)
CPT/HCPCS: 36415; 80076; 83690; 84436; 84443; 85027

== ENCOUNTER 2021-05-01 10:19 | Outpatient (REF) | payer OTHER, SELFPAY ==
--- NOTE | ~2021-05-01 | FL_ITS ---
EXAMINATION: XR FLUOROSCOPY UPPER GI WITH AIR CLINICAL INFORMATION: Abdominal pain. COMPARISON: CT scan of 04/02/2021 TECHNIQUE: Air-contrast upper GI examination. FINDINGS: There is normal apposition of the vocal cords while saying E. There is normal elevation of the soft palate while saying candy. Patient swallowed thin and thick barium without difficulty. There is no evidence of nasopharyngeal reflux or tracheal aspiration. Patient swallowed a half-inch barium tablet without difficulty. There is normal esophageal motility. No persistent stricture or ulceration is identified. No hiatal hernia. No gastroesophageal reflux was elicited during the study. There is a question of some limited distensibility with thickened folds involving the gastric antrum. Ulceration is not excluded. On recent CT scan, there did not appear to be an infiltrative process thickening the gastric antral wall. There was no delay in gastric emptying. The duodenal bulb and sweep appeared unremarkable. FLUOROSCOPY TIME: 2.9 minutes DOSE AREA PRODUCT: 19.231 Gy-cm2 (miles-centimeter squared) FL/FL upper GI w air IMPRESSION: Question of some limited distensibility with thickened folds involving the gastric antrum which could be related to antritis.
== END 2021-05-01 10:20 | disposition home or self-care (01) ==
LOC: HO.XRAY 10:19
PROVIDERS: Visit Provider Internal Medicine Gastroenterology
DX: R10.9 Unspecified abdominal pain (principal)
CPT/HCPCS: 74246

== ENCOUNTER → 2021-05-11 12:51 | Outpatient (BNVA) | payer OTHER, SELFPAY | PROVIDERS: PCP Internal Medicine; Visit Provider Hospitalist | DX: K21.9 Gastro-esophageal reflux disease without esophagitis (principal) ==

== ENCOUNTER 2021-05-11 13:34 | Inpatient (IN) | payer OTHER, SELFPAY ==
--- NOTE | ~2021-05-11 | US_ITS ---
EXAMINATION: US ABDOMEN COMPLETE CLINICAL INFORMATION: Fatty liver function tests. COMPARISON: CT abdomen and pelvis without and with contrast dated 04/02/2021. X-ray abdomen dated 03/20/2019. Ultrasound abdomen complete dated 01/21/2019. TECHNIQUE: Real-time imaging of the abdominal viscera. FINDINGS: PANCREAS: The visualized pancreas is normal in size and contour and echogenicity. There is no pancreatic ductal dilatation. The pancreatic tail is obscured by bowel gas. ABDOMINAL AORTA: The proximal, mid, and distal segments are normal in caliber. INFERIOR VENA CAVA: Visualized portions are normal. LIVER: The liver is normal in size and smooth in contour. There is mild increased hepatic echogenicity suggesting mild hepatic steatosis. There is no focal hepatic parenchymal lesion. No intrahepatic biliary ductal dilatation. Doppler shows portal flow towards the liver. GALLBLADDER: Surgically absent. COMMON BILE DUCT: Normal in caliber for postcholecystectomy patient measuring 0.7 cm in diameter. No visible ductal calculus or sludge. RIGHT KIDNEY: Normal. No hydronephrosis. No renal calculi or focal parenchymal lesions. The kidney measures 10.5 cm in maximum dimension. LEFT KIDNEY: Normal. No hydronephrosis. No renal calculi or focal parenchymal lesions. The kidney measures 10.1 cm in maximum dimension. SPLEEN: Normal. The spleen measures 9.7 cm in maximum dimension. FREE FLUID: None. US/US abdomen complete IMPRESSION: 1. Prior cholecystectomy. No biliary ductal dilatation. No choledocholithiasis. 2. Visualized pancreas unremarkable, tail obscured by bowel gas. 3. Mild hepatic steatosis. Liver normal in size and smooth in contour.
[2021-05-11 14:14] VITALS: BP 138/87; PULSE 115; RESP 18; TEMP 35.5; O2SAT 97; BMI 23.4
[2021-05-11] MEDS: Dicyclomine HCl 10 MG CAPSULE PO (14:47)
[2021-05-11] MEDS: LORazepam 0.5 MG TABLET 1 MG PO (14:47)
[2021-05-11] MEDS: Dicyclomine HCl 10 MG CAPSULE 20 MG PO (15:07)
[2021-05-11 15:25] LABS: Glucose Urine UA NEG (NEG); Leukocyte Esterase Urine NEG (NEG); Nitrite Urine NEG (NEG); Specific Gravity - Urine <= 1.005 (1.005-1.025); Urine Blood NEG (NEG); Urine Ketones NEG (NEG); Urine Protein NEG (NEG-TRACE)
[2021-05-11 15:30] LABS: Appearance Urine CLEAR; Color Urine YELLOW
[2021-05-11 15:37] LABS: RBC Urine 0 /HPF (0); WBC Urine 0 /HPF (0-4)
[2021-05-11 16:01] LABS: Amphetamine Screen Urine Not Detected (Not Detect); Barbiturates, Urine Not Detected (Not Detect); Benzodiazepines Screen Urine Not Detected (Not Detect); Cannabinoid Screen Urine Not Detected (Not Detect); Cocaine Screen Urine Not Detected (Not Detect); Fentanyl, urine Not Detected (Not Detect); Opiate Screen Urine Not Detected (Not Detect); Phencyclidine Screen Urine Not Detected (Not Detect)
--- NOTE | 2021-05-11 16:09 | ECG_ITS ---
Test Reason : MEDICAL CLEARANCE Blood Pressure : / mmHG Vent. Rate : 091 BPM Atrial Rate : 091 BPM P-R Int : 148 ms QRS Dur : 086 ms QT Int : 356 ms P-R-T Axes : 070 051 062 degrees QTc Int : 437 ms Normal sinus rhythm Normal ECG When compared with ECG of 02-APR-2021 06:09, No significant change was found Referred By: Milvia Mcnulty Electronically Signed By:DOMINIC TERRAZAS
[2021-05-11 16:53] LABS: COVID-19 Test Negative (Negative)
--- NOTE | 2021-05-11 16:57 | ED.PSYCH ---
HPI - Psych General Chief Complaint: Psychiatric Symptoms Stated Complaint: crisis Time Seen by Provider: 05/11/21 14:41 Source: patient Mode of arrival: ambulatory Limitations: no limitations History of Present Illness HPI Narrative: 71-year-old male with a past medical history of IBS, CAD s/p stented coronary artery, HTN, HLD, COPD, PREMA, generalized anxiety disorder, panic disorder with agoraphobia and severe panic attacks and major depressive disorder presenting to the ED with complaints of increased anxiety/depression with SI thoughts no plan in place for the past few weeks worse today due to his chronic abdominal pain due to IBS. He reports that this pain is debilitating and he cannot live a normal life because he always has abdominal pain. Reports he lives with his and his children and they are very supportive. He also reports that his mother is also very supportive but he feels really bad because his mother is cleaning his house because he is in the bili taping pain all the time. He reports that his doctors do not want to prescribe him any pain meds and they are telling him that ?it is all in my head the pain?. Patient reports that he takes all his medications as prescribed and if he does not his abdominal pain is worse. He reports that the abdominal pain he has is similar when compared to his prior abdominal pains and it is not worse today. He denies any fevers, chills, dizziness, headaches, change of vision, nausea/vomiting, chest pain, shortness of breath, palpitations, cough, back pain, dysuria, hematuria, black or bloody stools, diarrhea or constipation, recent travel or sick contacts or any other symptoms complaints or concerns at this time. He denies any drug or alcohol usage. He denies any HI/auditory or visual hallucinations. He reports in the past he has benefited from cognitive therapy. MD complaint: suicidal ideation and feels depressed Onset (ago): day(s) Duration: constant and getting worse History of same: Yes Relieving factors: none Exacerbating factors: other (His history of IBS reports debilitating pain) Context: significant life stressor (History of IBS) Associated symptoms: other (Chronic abdominal pain due to his IBS) Treatments prior to arrival: none If self harm: admits thoughts of self harm Related Data Home Medications Medication Instructions Recorded Confirmed ascorbic acid (vitamin C) 1,000 mg 1,000 mg PO DAILY 07/21/20 03/30/21 tablet cholecalciferol (vitamin D3) 25 50 mcg PO DAILY cap 07/21/20 03/30/21 mcg (1,000 unit) capsule famotidine 40 mg tablet 40 mg PO BID 02/10/21 05/11/21 fluticasone 500 mcg-salmeterol 50 1 inh INHALATION BID 02/10/21 03/30/21 mcg/dose blistr powdr for inhalation (Advair Diskus) levalbuterol HCl 1.25 mg/3 mL 1.25 mg INHALATION Q4H PRN 02/10/21 03/30/21 solution for nebulization (Xopenex) azithromycin 250 mg tablet 250 mg PO MOWEFR 02/27/21 03/30/21 multivitamin 1 tab PO DAILY 02/27/21 03/30/21 dicyclomine 10 mg capsule 30 mg PO QIDACHS 03/30/21 05/11/21 levalbuterol tartrate 45 2 puff INHALATION Q4H PRN 03/30/21 03/30/21 mcg/actuation aerosol inhaler fluticasone fur. 200 mcg-umeclid 1 puff PO DAILY 05/11/21 05/11/21 62.5 mcg-vilant 25 mcg inhalat.powder (Trelegy Ellipta) lorazepam 1 mg tablet 1 tab PO TID PRN 05/11/21 05/11/21 nortriptyline 10 mg capsule 1 cap PO BEDTIME 05/11/21 05/11/21 polyethylene glycol 3350 1 packet PO DAILY 05/11/21 05/11/21 propranolol 10 mg tablet 10 mg PO TID 05/11/21 quetiapine 25 mg tablet (Seroquel) 12.5 mg PO BID 05/11/21 05/11/21 simethicone 80 mg chewable tablet 80 - 160 mg PO TIDAC 05/11/21 05/11/21 Previous Rx's Medication Instructions Recorded albuterol sulfate 90 mcg/actuation 2 inh INHALATION Q4-6H PRN #1 ea 07/27/20 breath activated powder inhaler (ProAir RespiClick) prednisone 10 mg tablet 10 mg PO DAILY 30 Days #30 tab 10/13/20 amlodipine 10 mg tablet 1 tab PO DAILY 30 Days #30 tab 03/20/21 nortriptyline 10 mg capsule 10 mg PO BEDTIME #30 cap 03/20/21 nortriptyline 10 mg capsule 10 mg PO BEDTIME 30 Days #30 cap 03/20/21 tiotropium bromide 2.5 2 puff PO DAILY #4 ml 03/21/21 mcg/actuation mist for inhalation (Spiriva Respimat) lorazepam 0.5 mg tablet 0.5 mg PO DIRECTED 30 Days #180 03/22/21 tab lorazepam 1 mg tablet 1 mg PO DIRECTED 30 Days #90 tab 03/23/21 fluticasone fur. 200 mcg-umeclid 1 inh INHALATION DAILY 30 Days #60 03/30/21 62.5 mcg-vilant 25 mcg ea inhalat.powder (Trelegy Ellipta) levalbuterol HCl 1.25 mg/3 mL 1.25 mg INHALATION BID 30 Days 03/30/21 solution for nebulization (Xopenex) #180 ml levalbuterol tartrate 45 2 puff PO Q6H PRN 30 Days #15 g 03/30/21 mcg/actuation aerosol inhaler (Xopenex HFA) prednisone 5 mg tablet 5 mg PO DAILY 14 Days #49 tab 03/30/21 tramadol 50 mg tablet 50 mg PO BID PRN #7 tab 04/02/21 Allergies Allergy/AdvReac Type Severity Reaction Status Date / Time lamotrigine [From LAMICTAL] Allergy Severe agitation Verified 05/11/21 13:07 and anxiety with titration codeine [CODEINE] Allergy Intermediate INSOMNIA Verified 05/11/21 13:07 Penicillins [PENICILLINS] Allergy Intermediate RASH Verified 05/11/21 13:07 epinephrine [EPINEPHRINE] AdvReac Intermediate Hypertensio Verified 05/11/21 13:07 n escitalopram [From LEXAPRO] AdvReac Intermediate NIGHTMARES Verified 05/11/21 13:07 sertraline [From ZOLOFT] AdvReac Intermediate NIGHTMARES Verified 05/11/21 13:07 sulfamethoxazole AdvReac Intermediate STOMACH Verified 05/11/21 13:07 [From BACTRIM] UPSET Review of Systems Review of Systems: Constitutional : No Fever, No Chills ENT/Mouth : No Ear Pain, No Nasal Congestion, No sore throat Eyes: No Eye Pain, No Swelling, No Redness Cardiovascular : No Chest Pain, No SOB Respiratory : No Cough, No Sputum, No Dyspnea Gastrointestinal : Chronic abdominal pain due to his IBS similar compared to prior episodes not worse today, no ingestions, No Nausea, No Vomiting, No Diarrhea, No Hematochezia, No Melena Genitourinary : No Dysuria, No Urinary Frequency, No Hematuria Musculoskeletal : No Myalgias Skin : No Skin Lesions, No rash Neuro : No Weakness, No Numbness, No Paresthesias, No Dizziness, No Headache Psych : + Anxiety, + Depression, + SI, + thoughts of self injury, No HI, No AVH, Heme/Lymph: No Lymphadenopathy Endocrine : No Polyuria, No Polydipsia Yes all other systems are reviewed and are negative [facility] Past Medical History Attestation statement: The following information was validated with the patient. Medical History Abnormal nuclear stress test CAD (coronary artery disease) Chronic respiratory failure COPD (chronic obstructive pulmonary disease) Generalized anxiety disorder HLD (hyperlipidemia) Major depressive disorder, recurrent episode, severe with anxious distress Pneumonitis Pre-op evaluation Preop cardiovascular exam Smoking Surgical History Stented coronary artery Family History Family History Father No problems noted. Mother No problems noted. Social History Social History Household Members: Unknown / Unable to assess Housing: House Do you presently have visiting nurse or other home services: No Unable to assess alcohol history related to: Unknown Alcohol intake: never Patient Tobacco Use Status: Former Tobacco user Quit Date: 3 months ago Tobacco use type: Cigarette Years Smoked: 40 e-Cigarette/Vaping Use: Former Use Second Hand Smoke Exposure: No Advance Directives: No Advance Directives Information Provided: No Healthcare Proxy: No Guardian: No service: No Sexual orientation: Lesbian/Triana/Homosexual Physical Exam Vital Signs: Vital Signs: Last Vital Signs Temp 95.9 F L 05/11/21 14:14 Pulse 115 H 05/11/21 14:14 Resp 18 05/11/21 14:14 BP 138/87 05/11/21 14:14 Pulse Ox 97 05/11/21 14:14 Body Mass Index 23.4 vital signs have been reviewed as normal and appeared to be correct. Blood pressure normal. Heart rate at 115. Respiration rate normal. Temperature normal. Oxygen saturation normal. Appearance: Alert. Oriented X3. No acute distress. Head: Normal external exam. Normocephalic. Atraumatic. Eyes: PERRLA. EOMI. Conjunctiva and sclera normal. Eyelids normal. ENT: EAC normal. TM's Normal. Pharynx normal. Uvula midline. Moist mucous membranes. No trismus noted. No drooling noted. No muffled voice noted. Neck: Normal inspection. Neck supple. FROM. No adenopathy. Thyroid Normal. No meningeal signs. No neck mass noted. CVS: Normal heart rate and rhythm. Heart sound normal. No murmurs noted. Pulses normal throughout. Respiratory: No respiratory distress. Painless inspiration. Breath sounds normal. No wheezes/rales/rhonchi noted. Chest nontender. No accessory muscle usage noted or decreased air movement noted. Abdomen: Soft and mild tenderness to palpation to upper abdomen. Bowel sounds normal in all 4 quadrants. No distention noted. No organomegaly noted. No visible injury noted. No rebound tenderness is noted. Negative obturator's sign. Negative psoas sign. Negative Rovsing sign. Negative Huizar sign. Back: No CVA tenderness. Full range of motion noted. Skin: Skin warm and dry. Normal skin color. Normal skin turgor. No rashes/lesions/lacerations noted. Extremities: No lower extremity edema. No calf tenderness is noted. Extremities exhibit normal range of motion. Extremities nontender. Neuro: Oriented X 3. No motor deficit. No sensory deficit. Reflexes normal. Psych: Appearance grossly normal, well-kept, mental status normal, speech and movement normal, speech clear, patient appears very sad and anxious along with depressed. Is cooperative. Normal thought process. Normal thought content. Normal good insight. Judgment good. Course Course Course Narrative: 15:15pm - 71-year-old male with a past medical history of IBS, CAD s/p stented coronary artery, HTN, HLD, COPD, PREMA, generalized anxiety disorder, panic disorder with agoraphobia and severe panic attacks and major depressive disorder presenting to the ED with complaints of increased anxiety/depression with SI thoughts no plan in place for the past few weeks worse today due to his chronic abdominal pain due to IBS. He reports that this pain is debilitating and he cannot live a normal life because he always has abdominal pain. He denies any HI/auditory or visual hallucinations. He denies any drug or alcohol usage. He reports he feels safe at home. Reports that he has benefited from cognitive therapy in the past. Plan: Labs, UA, drugs of abuse screen, med reconciliation order, COVID swab, provide 5 mg of oxycodone for the patient's chronic abdominal pain due to his IBS and then re-evaluate. And clear for crisis consult Reevaluation(s) Reevaluation #1: Sign out to JOSH Carbone pending Labs MDM - Psych Medical Records Attestation: I reviewed the patient's medical records. Lab Data Attestation: I reviewed the patient's lab results. Labs: Lab Results 05/11/21 05/11/21 05/11/21 Range/Units 15:17 15:17 16:24 Urine Color YELLOW Urine Appearance CLEAR Urine pH 6.0 (5.0-8.0) Ur Specific [place] <= 1.005 (1.005-1.025) Urine Protein NEG (NEG-TRACE) MG/DL Urine Glucose (UA) NEG (NEG) MG/DL Urine Ketones NEG (NEG) MG/DL Urine Blood NEG (NEG) Urine Nitrite NEG (NEG) Ur Leukocyte Esterase NEG (NEG) Urine RBC 0 (0) /HPF Urine WBC 0 (0-4) /HPF Ur Squamous Epith Cells NONE /LPF Urine Bacteria NONE /LPF Urine Opiates Screen Not Detected (Not Detect) Urine Fentanyl Screen Not Detected (Not Detect) Ur Barbiturates Screen Not Detected (Not Detect) Ur Phencyclidine Scrn Not Detected (Not Detect) Ur Amphetamines Screen Not Detected (Not Detect) U Benzodiazepines Scrn Not Detected (Not Detect) Urine Cocaine Screen Not Detected (Not Detect) U Marijuana (THC) Screen Not Detected (Not Detect) COVID-19 (MARRY) Negative (Negative) COVID-19 Clin Com See Note ECG Data Attestation: I personally reviewed and interpreted this ECG as follows: ECG interpretation date: 05/11/21 ECG interpretation time: 16:44 Interpretation: Normal sinus rhythm with a ventricular rate of 91 with a normal ID interval normal QRS duration normal QT/QTC interval. No acute ischemic change are noted. Similar compared to prior EKG on 04/02/2021. Discharge Plan Discharge Clinical Impression: Chronic abdominal pain, Suicidal ideation, Depression, Anxiety Prescriptions: No Action ProAir RespiClick 90 mcg/actuation aerosol powdr breath activated 2 inh inhalation Q4-6H PRN (Reason: Shortness Of Breath) Qty: 1 RF: 3 tiotropium bromide [Spiriva Respimat] 2.5 mcg/actuation mist 2 puff PO DAILY Qty: 4 RF: 11 tramadol 50 mg tablet 50 mg PO BID PRN (Reason: pain) Qty: 7 RF: 0 nortriptyline 10 mg capsule 1 cap PO BEDTIME RF: 0 Trelegy Ellipta 200-62.5-25 mcg blister with device 1 puff PO DAILY RF: 0 polyethylene glycol 3350 1 packet PO DAILY RF: 0 lorazepam 1 mg tablet 1 tab PO TID PRN (Reason: anxiety) RF: 0 quetiapine [Seroquel] 25 mg tablet 12.5 mg PO BID RF: 0 simethicone [Simethicone-80] 80 mg Tablet,Chewable 80 - 160 mg PO TIDAC RF: 0 fluticasone propion-salmeterol [Advair Diskus] 500-50 mcg/dose Blister With Device 1 inh INHALATION BID RF: 0 levalbuterol HCl [Xopenex] 1.25 mg/3 mL Solution For Nebulization 1.25 mg INHALATION Q4H PRN (Reason: Shortness Of Breath Or Wheezing) RF: 0 famotidine 40 mg Tablet 40 mg PO BID RF: 0 multivitamin Tablet 1 tab PO DAILY RF: 0 azithromycin 250 mg tablet 250 mg PO MOWEFR RF: 0 nortriptyline 10 mg Capsule 10 mg PO BEDTIME 30 Days Qty: 30 RF: 0 amlodipine 10 mg tablet 1 tab PO DAILY 30 Days Qty: 30 RF: 0 nortriptyline 10 mg capsule 10 mg PO BEDTIME Qty: 30 RF: 1 lorazepam 0.5 mg tablet 0.5 mg PO DIRECTED 30 Days Qty: 180 RF: 1 lorazepam 1 mg tablet 1 mg PO DIRECTED 30 Days Qty: 90 RF: 0 dicyclomine 10 mg capsule 30 mg PO QIDACHS RF: 0 levalbuterol tartrate 45 mcg/actuation HFA aerosol inhaler 2 puff inhalation Q4H PRN (Reason: wheezing) RF: 0 levalbuterol HCl [Xopenex] 1.25 mg/3 mL solution for nebulization 1.25 mg inhalation BID 30 Days Qty: 180 RF: 11 levalbuterol tartrate [Xopenex HFA] 45 mcg/actuation HFA aerosol inhaler 2 puff PO Q6H PRN (Reason: shortness of breath or wheezing) 30 Days Qty: 15 RF: 11 Trelegy Ellipta 200-62.5-25 mcg blister with device 1 inh inhalation DAILY 30 Days Qty: 60 RF: 12 prednisone 5 mg tablet 5 mg PO DAILY 14 Days Qty: 49 RF: 0 ascorbic acid (vitamin C) 1,000 mg tablet 1,000 mg PO DAILY RF: 0 cholecalciferol (vitamin D3) 25 mcg (1,000 unit) capsule 50 mcg PO DAILY RF: 0 prednisone 10 mg tablet 10 mg PO DAILY 30 Days Qty: 30 RF: 4 propranolol 10 mg tablet 10 mg PO TID RF: 0
[2021-05-11] MEDS: Dicyclomine HCl 10 MG CAPSULE 30 MG PO ×3 (17:57→20:44)
[2021-05-11 19:41] LABS: Basophils Percent Auto 0.3 % (0-2); Eosinophils Absolute Auto 0.1 X10*3/uL (0.0-0.4); Eosinophils Percent Auto 0.8 % (0-4); Hemoglobin 17.3 g/dl (14.0-18.0); Imm Gran Abs Auto 0.03 X10*3/uL (0.00-0.03); Imm Gran Pct Auto 0.3 % (0.0-0.4); Lymphocytes Absolute Auto 2.5 X10*3/uL (1.2-4.9); Lymphocytes Percent Auto 25.6 % (20-40); MANUAL DIFF FLAG NO; Mean Corpuscular HGB Conc 33.9 g/dl (31.0-36.0); Mean Corpuscular Hemoglobin 30.7 pg (27.0-33.0); Mean Corpuscular Volume 90.4 fL (80-98); Mean Platelet Volume 8.5 fL (9.4-12.4); Monocytes Absolute Auto 0.5 X10*3/uL (0.1-1.2); Monocytes Percent Auto 5.3 % (2-11); Neutrophils Absolute Auto 6.7 X10*3/uL (2.0-8.3); Neutrophils Percent Auto 67.7 % (45-73); Platelet Count 276 X10*3/uL (160-400); Red Blood Count 5.64 X10*6/uL (4.60-5.80); Red Cell Distribution Width 13.3 % (11.0-16.0); White Blood Count 9.9 X10*3/uL (4.8-10.8)
[2021-05-11 20:01] LABS: Ethanol < 10 mg/dL
[2021-05-11 20:04] LABS: Lipase 30 U/L (8-78); Magnesium 2.7 mg/dL (1.6-2.6)
[2021-05-11 20:05] LABS: Alanine Aminotransferase 47 U/L (0-40); Alkaline Phosphatase 69 U/L (39-117); Anion Gap 17 (12-20); Aspartate Amino Transferase 24 U/L (5-37); Bilirubin Total 0.5 mg/dL (0.0-1.0); Blood Urea Nitrogen 12 mg/dL (9-16); Calcium 10.2 mg/dL (8.4-10.2); Carbon Dioxide 26 mmol/L (22-29); Chloride 101 mmol/L (96-108); Creatinine Clr Calc Pharmacy 52.4; Estimated Glomerular Filt Rate > 60; Glucose Random 114 mg/dL (60-115); Potassium 3.8 mmol/L (3.3-5.1); Sodium 140 mmol/L (135-145)
[2021-05-11] MEDS: LORazepam 1 MG TABLET PO (20:44)
[2021-05-11] MEDS: Nortriptyline HCl 10 MG CAPSULE PO (20:45)
[2021-05-11] MEDS: Famotidine 20 MG TABLET 40 MG PO (21:16)
--- NOTE | 2021-05-11 21:22 | PC.NURSE ---
PT is 71 year old male with a history of anxiety and depression. PT reports to unit with increased anxiety and depression exacerbated by new onset IBS. PT stated that his IBS has caused him to have decreased appetite and nutrient consumption. PT also stated that the pain from IBS has disrupted his ability to perform daily activities. PT reported that he started a new course of meds a few weeks ago which had created this issue with the IBS. PT denies any SI or thoughts of self harm.
[2021-05-12 06:00] VITALS: BP 91/56; PULSE 86; RESP 16; TEMP 36.2; O2SAT 96
[2021-05-12] MEDS: Dicyclomine HCl 10 MG CAPSULE 30 MG PO (06:54)
[2021-05-12 08:16] LABS: MANUAL DIFF FLAG NO
[2021-05-12 08:19] LABS: Basophils Percent Auto 0.6 % (0-2); Eosinophils Absolute Auto 0.1 X10*3/uL (0.0-0.4); Eosinophils Percent Auto 1.4 % (0-4); Hematocrit 44.2 % (42-52); Hemoglobin 14.8 g/dl (14.0-18.0); Imm Gran Abs Auto 0.02 X10*3/uL (0.00-0.03); Imm Gran Pct Auto 0.3 % (0.0-0.4); Lymphocytes Absolute Auto 2.2 X10*3/uL (1.2-4.9); Lymphocytes Percent Auto 33.1 % (20-40); Mean Corpuscular HGB Conc 33.5 g/dl (31.0-36.0); Mean Corpuscular Hemoglobin 30.1 pg (27.0-33.0); Mean Platelet Volume 8.7 fL (9.4-12.4); Monocytes Absolute Auto 0.6 X10*3/uL (0.1-1.2); Monocytes Percent Auto 9.8 % (2-11); Neutrophils Absolute Auto 3.6 X10*3/uL (2.0-8.3); Neutrophils Percent Auto 54.8 % (45-73); Platelet Count 286 X10*3/uL (160-400); Red Blood Count 4.91 X10*6/uL (4.60-5.80); Red Cell Distribution Width 13.4 % (11.0-16.0); White Blood Count 6.6 X10*3/uL (4.8-10.8)
[2021-05-12] MEDS: polyethylene glycoL 3350 17 GM POWD.PACK PO (08:24)
[2021-05-12] MEDS: Famotidine 20 MG TABLET 40 MG PO ×2 (08:24→20:21)
[2021-05-12] MEDS: Fluticasone/Vilanterol 100/25 BLST.W.DEV 1 PUFF INHALE (08:28)
[2021-05-12 08:58] LABS: Alanine Aminotransferase 40 U/L (0-40); Albumin Level 4.3 g/dL (3.5-5.0); Alkaline Phosphatase 57 U/L (39-117); Anion Gap 15 (12-20); Aspartate Amino Transferase 21 U/L (5-37); Bilirubin Total 0.5 mg/dL (0.0-1.0); Blood Urea Nitrogen 12 mg/dL (9-16); Calcium 9.4 mg/dL (8.4-10.2); Carbon Dioxide 25 mmol/L (22-29); Chloride 104 mmol/L (96-108); Creatinine Clr Calc Pharmacy 56.1; Estimated Glomerular Filt Rate > 60; Glucose Fasting 100 mg/dL (60-99); Potassium 4.8 mmol/L (3.3-5.1); Sodium 139 mmol/L (135-145); Total Protein 6.6 g/dL (6.5-8.0)
[2021-05-12 09:05] LABS: Free T4 (Free Thyroxine) 1.16 ng/dL (0.71-1.85); Thyroid Stimulating Hormone 1.17 uIU/mL (0.32-4.0)
[2021-05-12] MEDS: oxyCODONE HCl Immed Release 5 MG TABLET PO (09:12)
[2021-05-12] MEDS: LORazepam 0.5 MG TABLET PO (09:51)
[2021-05-12] MEDS: Simethicone 80 MG TAB.CHEW PO ×2 (12:04→16:00)
[2021-05-12] MEDS: Dicyclomine HCl 10 MG CAPSULE 40 MG PO ×3 (12:04→20:18)
--- NOTE | 2021-05-12 12:36 | P.HPPS_ITS ---
HPI Chief Complaint: SI Sources of Information: patient interviewed, chart reviewed and crisis/core team assessment reviewed HPI Subjective Notes: Persaud Warning and Conditional Voluntary Narrative: Patient is a 71-year-old male with history of depression and anxiety, past trials of ECT and multiple medical comorbidities, who was recently discharged from [facility] inpatient unit this pastJun2020, who presents for depression and anxiety and complaining of IBS. Patient gives a little bit of a confusing recent history. He said that when he left the unit last February he was in a good mood and he still in a good mood. He overall denies depression. He says he got brief, short lived bout of SI but it was passive and it resolved. He says however that his highway engineer put him on prednisone and Zithromax a month or so ago and that he ?got weird on prednisone ?and that he developed IBS on Zithromax. He says that the IBS is her hurting his stomach and probably making him depressed. He said he would not be depressed at off a were not for pain in his abdomen. Patient said he recently saw a GI who did add dicyclomine but said that patient needs psychiatry, not further GI workup. Since patient reiterated that he has not been depressed, commercial insurance underwriter asked why he presented to the psychiatric unit. Patient says he needs to figure out the connection between his cognitive thinking and his abdominal pain. He says he is here to undergo go some cognitive restructuring... Auto Claims Adjuster explained that this is much more of an outpatient treatment that is handled in outpatient therapy, to which patient seemed surprised to hear. He did say that he has not been able to do anything or go anywhere but he offers of mixed etiology for this and is not sure if it is depression or abdominal pain. then said that he needs a liver scan because his liver enzymes were up, however dating back to 2019, commercial insurance underwriter could not find evidence of elevated liver enzymes except for just few days ago when they were very mildly elevated and have since resolved. Crisis note reports that patient has been depressed and having panic attacks because and wake up in the middle of the night. Patient currently denies any SI. He asks for his dicyclomine to be increased to 40 mg and for his home medication of simethicone to be added, to which commercial insurance underwriter complies. Past Psychiatric History: History of good response to ECT past history of panic disorder has not been able to stabilize now for number of years despite outpatient therapy counseling partial hospital ongoing treatment with a nurse practitioner Trina iverson Medical Evaluation Reviewed: Yes [facility] Medical History Abnormal nuclear stress test CAD (coronary artery disease) Chronic respiratory failure COPD (chronic obstructive pulmonary disease) Generalized anxiety disorder HLD (hyperlipidemia) Major depressive disorder, recurrent episode, severe with anxious distress Pneumonitis Pre-op evaluation Preop cardiovascular exam Smoking Surgical History Stented coronary artery Social History: 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 He has a supportive family including sister and mother Trauma History: no history of sexual or physical trauma Diagnostics Vital Signs (24Hr): Vital Signs - 24 hr 05/11/21 14:14 05/12/21 06:00 Temperature 95.9 F L 97.2 F Pulse Rate 115 H 86 Respiratory Rate 18 16 Blood Pressure 138/87 91/56 L Pulse Oximetry 97 96 Body Mass Index 23.4 Labs Results: 05/12/21 07:58 05/12/21 07:58 Labs: Laboratory Results - last 48 hr 05/11/21 05/11/21 05/11/21 15:17 15:17 16:24 WBC RBC Hgb Hct MCV MCH MCHC RDW Plt Count MPV Immature Gran % (Auto) Neut % (Auto) Lymph % (Auto) [place] % (Auto) Eos % (Auto) Baso % (Auto) Lymph # (Auto) [place] # (Auto) Eos # (Auto) Baso # (Auto) Abs Immat Gran (auto) Absolute Neuts (auto) Absolute Nucleated RBC Nucleated RBC % (auto) Sodium Potassium Chloride Carbon Dioxide Anion Gap BUN Creatinine Estim Creat Clear Calc Estimated GFR Random Glucose Fasting Glucose Calcium Magnesium Total Bilirubin AST ALT Alkaline Phosphatase Total Protein Albumin Lipase TSH Free T4 Urine Color YELLOW Urine Appearance CLEAR Urine pH 6.0 Ur Specific [place] <= 1.005 Urine Protein NEG Urine Glucose (UA) NEG Urine Ketones NEG Urine Blood NEG Urine Nitrite NEG Ur Leukocyte Esterase NEG Urine RBC 0 Urine WBC 0 Ur Squamous Epith Cells NONE Urine Bacteria NONE Urine Opiates Screen Not Detected Urine Fentanyl Screen Not Detected Ur Barbiturates Screen Not Detected Ur Phencyclidine Scrn Not Detected Ur Amphetamines Screen Not Detected U Benzodiazepines Scrn Not Detected Urine Cocaine Screen Not Detected U Marijuana (THC) Screen Not Detected Ethyl Alcohol COVID-19 (MARRY) Negative COVID-19 Clin Com See Note 05/11/21 05/11/21 05/11/21 19:36 19:36 19:36 WBC 9.9 RBC 5.64 Hgb 17.3 Hct 51.0 MCV 90.4 MCH 30.7 MCHC 33.9 RDW 13.3 Plt Count 276 MPV 8.5 L Immature Gran % (Auto) 0.3 Neut % (Auto) 67.7 Lymph % (Auto) 25.6 [place] % (Auto) 5.3 Eos % (Auto) 0.8 Baso % (Auto) 0.3 Lymph # (Auto) 2.5 [place] # (Auto) 0.5 Eos # (Auto) 0.1 Baso # (Auto) 0.0 Abs Immat Gran (auto) 0.03 Absolute Neuts (auto) 6.7 Absolute Nucleated RBC 0.000 Nucleated RBC % (auto) 0.0 Sodium 140 Potassium 3.8 Chloride 101 Carbon Dioxide 26 Anion Gap 17 BUN 12 Creatinine 1.07 Estim Creat Clear Calc 52.4 Estimated GFR > 60 Random Glucose 114 Fasting Glucose Calcium 10.2 Magnesium 2.7 H Total Bilirubin 0.5 AST 24 ALT 47 H Alkaline Phosphatase 69 Total Protein 8.0 Albumin 5.0 Lipase 30 TSH Free T4 Urine Color Urine Appearance Urine pH Ur Specific [place] Urine Protein Urine Glucose (UA) Urine Ketones Urine Blood Urine Nitrite Ur Leukocyte Esterase Urine RBC Urine WBC Ur Squamous Epith Cells Urine Bacteria Urine Opiates Screen Urine Fentanyl Screen Ur Barbiturates Screen Ur Phencyclidine Scrn Ur Amphetamines Screen U Benzodiazepines Scrn Urine Cocaine Screen U Marijuana (THC) Screen Ethyl Alcohol COVID-19 ([facility]Y) COVID-19 Clin Com 05/11/21 05/12/21 05/12/21 19:36 07:58 07:58 WBC 6.6 RBC 4.91 Hgb 14.8 Hct 44.2 MCV 90.0 MCH 30.1 MCHC 33.5 RDW 13.4 Plt Count 286 MPV 8.7 L Immature Gran % (Auto) 0.3 Neut % (Auto) 54.8 Lymph % (Auto) 33.1 [place] % (Auto) 9.8 Eos % (Auto) 1.4 Baso % (Auto) 0.6 Lymph # (Auto) 2.2 [place] # (Auto) 0.6 Eos # (Auto) 0.1 Baso # (Auto) 0.0 Abs Immat Gran (auto) 0.02 Absolute Neuts (auto) 3.6 Absolute Nucleated RBC 0.000 Nucleated RBC % (auto) 0.0 Sodium 139 Potassium 4.8 D Chloride 104 Carbon Dioxide 25 Anion Gap 15 BUN 12 Creatinine 1.00 Estim Creat Clear Calc 56.1 Estimated GFR > 60 Random Glucose Fasting Glucose 100 H Calcium 9.4 D Magnesium Total Bilirubin 0.5 AST 21 ALT 40 Alkaline Phosphatase 57 Total Protein 6.6 Albumin 4.3 Lipase TSH 1.17 Free T4 1.16 Urine Color Urine Appearance Urine pH Ur Specific [place] Urine Protein Urine Glucose (UA) Urine Ketones Urine Blood Urine Nitrite Ur Leukocyte Esterase Urine RBC Urine WBC Ur Squamous Epith Cells Urine Bacteria Urine Opiates Screen Urine Fentanyl Screen Ur Barbiturates Screen Ur Phencyclidine Scrn Ur Amphetamines Screen U Benzodiazepines Scrn Urine Cocaine Screen U Marijuana (THC) Screen Ethyl Alcohol < 10 COVID-19 ([facility]ARRY) COVID-19 Clin Com Meds/Allergies Meds Home Medications Acetaminophen (Acetaminophen 325 Mg Tablet) 650 mg PO Q6H PRN PRN Reason: Headache/Pain Mild Scale (1-3) Al Hydroxide/Mg Hydroxide (Magnesium Hydrox/Alum Hydrox 30 Ml Oral.Susp) 30 ml PO Q6H PRN PRN Reason: Heartburn/Nausea Albuterol Sulfate (Albuterol Sulfate 90 Mcg 8 Gm Inhaler) 2 puff INHALE RQ4H PRN PRN Reason: Shortness of Breath Amlodipine Besylate (Amlodipine Besylate 10 Mg Tablet) 10 mg PO BEDTIME [facility]; Protocol Dicyclomine HCl (Dicyclomine Hcl 10 Mg Capsule) 40 mg PO QIDACHS [facility] Last Admin: 05/12/21 12:04 Dose: 40 mg Documented by: Famotidine (Famotidine 20 Mg Tablet) 40 mg PO BID [facility] Last Admin: 05/12/21 08:24 Dose: 40 mg Documented by: Fluticasone/Vilanterol (Fluticasone/Vilanterol 100/25 Blst.W.Dev) 1 puff INHALE RDAILY [facility] Last Admin: 05/12/21 08:28 Dose: 1 puff Documented by: Hydroxyzine HCl (Hydroxyzine Hcl 25 Mg Tablet) 25 mg PO Q6H PRN PRN Reason: Anxiety Lorazepam (Lorazepam 1 Mg Tablet) 1 mg PO TID PRN PRN Reason: anxiety Last Admin: 05/11/21 20:44 Dose: 1 mg Documented by: Lorazepam (Lorazepam 0.5 Mg Tablet) 0.5 mg PO Q6H PRN PRN Reason: anxiety Last Admin: 05/12/21 09:51 Dose: 0.5 mg Documented by: Magnesium Hydroxide (Milk Of Magnesia 30 Ml Oral.Susp) 30 ml PO DAILY PRN PRN Reason: Constipation Nortriptyline HCl (Nortriptyline Hcl 10 Mg Capsule) 10 mg PO BEDTIME [facility] Last Admin: 05/11/21 20:45 Dose: 10 mg Documented by: Oxycodone HCl (Oxycodone Hcl Immed Release 5 Mg Tablet) 5 mg PO Q6H PRN PRN Reason: Pain, Moderate (Pain Scale 4-6 Last Admin: 05/12/21 09:12 Dose: 5 mg Documented by: Polyethylene Glycol (Polyethylene Glycol 3350 17 Gm Powd.Pack) 17 gm PO DAILY [facility] Last Admin: 05/12/21 08:24 Dose: 17 gm Documented by: Quetiapine Fumarate (Quetiapine Fumarate 25 Mg Tablet) 12.5 mg PO BID [facility] Last Admin: 05/12/21 08:28 Dose: Not Given Documented by: Simethicone (Simethicone 80 Mg Tab.Chew) 80 mg PO TIDAC [facility] Last Admin: 05/12/21 12:04 Dose: 80 mg Documented by: Tiotropium [place] (Tiotropium [place] 18 Mcg Cap.W.Dev) 1 puff INHALE RDAILY [facility] Last Admin: 05/12/21 08:26 Dose: 1 puff Documented by: Trazodone HCl (Trazodone Hcl 50 Mg Tablet) 50 mg PO BEDTIME PRN PRN Reason: Insomnia Allergies Allergies Allergy/AdvReac Type Severity Reaction Status Date / Time lamotrigine [From LAMICTAL] Allergy Severe agitation Verified 05/11/21 13:07 and anxiety with titration codeine [CODEINE] Allergy Intermediate INSOMNIA Verified 05/11/21 13:07 Penicillins [PENICILLINS] Allergy Intermediate RASH Verified 05/11/21 13:07 epinephrine [EPINEPHRINE] AdvReac Intermediate Hypertensio Verified 05/11/21 13:07 n escitalopram [From LEXAPRO] AdvReac Intermediate NIGHTMARES Verified 05/11/21 13:07 sertraline [From ZOLOFT] AdvReac Intermediate NIGHTMARES Verified 05/11/21 13:07 sulfamethoxazole AdvReac Intermediate STOMACH Verified 05/11/21 13:07 [From BACTRIM] UPSET Mental Status Exam Mental Status Exam Narrative: Pt is alert and oriented; behavior is cooperative; patient is dressed in casual attire with adequate hygiene; mood is described as good but affect is anxious; eye contact appropriate; Speech is normal rate, volume and prosody and not pressured; no psychomotor agitation/retardation present; thought process is organized, linear, logical and goal directed. Thought content is on treatment for abdominal pain; otherwise TC relevant to pertinent topics and without any delusional content, paranoid ideations or grandiosity; denies any SI/HI. There is no evidence of perceptual disturbance. ?Patients insight and judgment appear impaired. Assessment & Plan Assessment & Plan (1) Major depressive disorder, recurrent episode, severe with anxious distress: Status: Acute Code(s): F33.2 - Major depressive disorder, recurrent severe without psychotic features (2) Chronic abdominal pain: Status: Acute Code(s): R10.9 - Unspecified abdominal pain; G89.29 - Other chronic pain (3) Anxiety: Status: Acute Code(s): F41.9 - Anxiety disorder, unspecified (4) COPD (chronic obstructive pulmonary disease): Status: Acute Qualifiers: COPD type: unspecified COPD Qualified Code(s): J44.9 - Chronic obstructive pulmonary disease, unspecified Code(s): J44.9 - Chronic obstructive pulmonary disease, unspecified (5) Stented coronary artery: Status: Acute Code(s): Z95.5 - Presence of coronary angioplasty implant and graft Assessment and Plan: Patient is a 71-year-old male with history of depression and anxiety, past trials of ECT and multiple medical comorbidities, who was recently discharged from [facility] inpatient unit this pastJune 2020, who presents for depression and anxiety and complaining of IBS. Patient gives some conflicting report at 1stsaying he is not depressed but then saying he is depressed but only due to abdominal pain. Patient's problem list includes history of chronic abdominal pain though patient said this only started recently. Patient says that his GI specialist told him he does not need GI but needs psychiatric unit. Crisis note reports that patient has been severely depressed at home with an increased in anxiety. Will admit patient for further evaluation. Plan: Patient on CV Q 15 minutes checks Team discussion resulted in agreement that patient is to be transferred to Geriatric Unit, to which patient agrees Will defer to primary team on whether or not to consult GI Otherwise continue on current medications -dicyclomine raised to 40 mg -simethicone added t.i.d. before meals Patient educated on: diagnosis and therapeutic strategies Informed Consent: further education needed Reason for continued inpatient stay Substantial Risk for: med/psych decompensation
[2021-05-12] MEDS: Acetaminophen 325 MG TABLET 650 MG PO (14:43)
[2021-05-12] MEDS: LORazepam 1 MG TABLET PO (17:05)
[2021-05-12 18:00] VITALS: BP 100/65; PULSE 89; RESP 18; TEMP 36.4; O2SAT 95
[2021-05-12] MEDS: QUEtiapine Fumarate 25 MG TABLET 12.5 MG PO (20:18)
[2021-05-12] MEDS: Nortriptyline HCl 10 MG CAPSULE PO (20:18)
[2021-05-12 20:20] VITALS: BP 100/65; PULSE 89
[2021-05-12] MEDS: amLODIPine Besylate 10 MG TABLET PO (20:20)
[2021-05-13 06:00] VITALS: BP 112/74; PULSE 103; RESP 16; TEMP 36.7; O2SAT 96
[2021-05-13] MEDS: Dicyclomine HCl 10 MG CAPSULE 40 MG PO ×4 (06:07→19:42)
[2021-05-13] MEDS: Simethicone 80 MG TAB.CHEW PO ×3 (06:07→16:34)
--- NOTE | 2021-05-13 06:40 | P.PNPSI_ITS ---
Subjective Subjective Date of Service: 05/15/21 Reason For Visit: SI Subjective Notes: Conditional Voluntary Interim History: Pt complaints mostly about abdominal cramps secondary to IBS, with periods of loose stools. He reports abdominal pain is intolerable and aff ects his mood. He denies SI/HI. He reports feeling anxious. No behavioral concerns Medication Compliance: Yes Review of Systems Review of Systems Constitutional : No Fever, No Chills ENT/Mouth : No Ear Pain, No Nasal Congestion, No sore throat Eyes: No Eye Pain, No Swelling, No Redness Cardiovascular : No Chest Pain, No SOB Respiratory : No Cough, No Sputum, No Dyspnea Gastrointestinal : Chronic abdominal pain due to his IBS similar compared to prior episodes not worse today, no ingestions, No Nausea, No Vomiting, No Diarrhea, No Hematochezia, No Melena Genitourinary : No Dysuria, No Urinary Frequency, No Hematuria Musculoskeletal : No Myalgias Skin : No Skin Lesions, No rash Neuro : No Weakness, No Numbness, No Paresthesias, No Dizziness, No Headache Psych : + Anxiety, + Depression, + SI, + thoughts of self injury, No HI, No AVH, Heme/Lymph: No Lymphadenopathy Endocrine : No Polyuria, No Polydipsia Yes all other systems are reviewed and are negative Mental Status Exam Mental Status Exam Narrative: Pt is alert and oriented; behavior is cooperative; patient is dressed in casual attire with adequate hygiene; mood is described as good but affect is anxious; eye contact appropriate; Speech is normal rate, volume and prosody and not pressured; no psychomotor agitation/retardation present; thought process is organized, linear, logical and goal directed. Thought content is on treatment for abdominal pain; otherwise TC relevant to pertinent topics and without any delusional content, paranoid ideations or grandiosity; denies any SI/HI. There is no evidence of perceptual disturbance. ?Patients insight and judgment appear impaired. Diagnostics Vital Signs (24Hr): Vital Signs - 24 hr 05/14/21 18:00 05/14/21 20:00 Temperature 97.1 F Pulse Rate 85 90 Blood Pressure 143/68 H 122/73 Pulse Oximetry 98 Body Mass Index 23.4 Labs Results: 05/12/21 07:58 05/12/21 07:58 Medications Medications Current Medications Generic Name Dose Route Start Last Admin Trade Name Freq PRN Reason Stop Dose Admin Acetaminophen 650 mg 05/11/21 19:22 05/14/21 18:18 Acetaminophen 325 Mg Tablet PO 650 mg Q6H PRN Administration Headache/Pain Mild Scale (1-3) Al Hydroxide/Mg Hydroxide 30 ml 05/11/21 19:22 05/14/21 21:18 Magnesium Hydrox/Alum Hydrox 30 Ml Oral.Susp PO 30 ml Q6H PRN Administration Heartburn/Nausea Albuterol Sulfate 2 puff 05/12/21 08:21 05/14/21 08:13 Albuterol Sulfate 90 Mcg 8 Gm Inhaler INHALE 2 puff RQ4H PRN Administration Shortness of Breath Amlodipine Besylate 10 mg 05/12/21 21:00 05/14/21 20:00 Amlodipine Besylate 10 Mg Tablet PO 10 mg BEDTIME ÁLVARO Administration Protocol Dicyclomine HCl 40 mg 05/12/21 11:30 05/14/21 19:59 Dicyclomine Hcl 10 Mg Capsule PO 40 mg QIDACHS ÁLVARO Administration Famotidine 40 mg 05/11/21 21:15 05/14/21 20:00 Famotidine 20 Mg Tablet PO 40 mg BID ÁLVARO Administration Fluticasone/Vilanterol 1 puff 05/12/21 08:00 05/14/21 08:13 Fluticasone/Vilanterol 100/25 Blst.W.Dev INHALE 1 puff RDAILY ÁLVARO Administration Hydroxyzine HCl 25 mg 05/11/21 19:22 Hydroxyzine Hcl 25 Mg Tablet PO Q6H PRN Anxiety Lorazepam 1 mg 05/11/21 16:47 05/14/21 20:09 Lorazepam 1 Mg Tablet PO 1 mg TID PRN Administration anxiety Lorazepam 0.5 mg 05/11/21 19:28 05/13/21 08:02 Lorazepam 0.5 Mg Tablet PO 0.5 mg Q6H PRN Administration anxiety Magnesium Hydroxide 30 ml 05/11/21 19:22 Milk Of Magnesia 30 Ml Oral.Susp PO DAILY PRN Constipation Nortriptyline HCl 10 mg 05/11/21 21:00 05/14/21 19:59 Nortriptyline Hcl 10 Mg Capsule PO 10 mg BEDTIME ÁLVARO Administration Oxycodone HCl 5 mg 05/11/21 16:46 05/12/21 09:12 Oxycodone Hcl Immed Release 5 Mg Tablet PO 5 mg Q6H PRN Administration Pain, Moderate (Pain Scale 4-6 Polyethylene Glycol 17 gm 05/12/21 09:00 05/14/21 08:14 Polyethylene Glycol 3350 17 Gm Powd.Pack PO 17 gm DAILY ÁLVARO Administration Quetiapine Fumarate 12.5 mg 05/11/21 21:00 05/14/21 20:11 Quetiapine Fumarate 25 Mg Tablet PO Not Given BID ÁLVARO Simethicone 80 mg 05/12/21 11:30 05/14/21 16:07 Simethicone 80 Mg Tab.Chew PO 80 mg TIDAC ÁLVARO Administration Tiotropium [place] 1 puff 05/12/21 08:00 05/14/21 08:13 Tiotropium [place] 18 Mcg Cap.W.Dev INHALE 1 puff RDAILY ÁLVARO Administration Trazodone HCl 50 mg 05/11/21 19:22 Trazodone Hcl 50 Mg Tablet PO BEDTIME PRN Insomnia Allergies Allergies Allergy/AdvReac Type Severity Reaction Status Date / Time lamotrigine [From LAMICTAL] Allergy Severe agitation Verified 05/11/21 13:07 and anxiety with titration codeine [CODEINE] Allergy Intermediate INSOMNIA Verified 05/11/21 13:07 Penicillins [PENICILLINS] Allergy Intermediate RASH Verified 05/11/21 13:07 epinephrine [EPINEPHRINE] AdvReac Intermediate Hypertensio Verified 05/11/21 13:07 n escitalopram [From LEXAPRO] AdvReac Intermediate NIGHTMARES Verified 05/11/21 13:07 sertraline [From ZOLOFT] AdvReac Intermediate NIGHTMARES Verified 05/11/21 13:07 sulfamethoxazole AdvReac Intermediate STOMACH Verified 05/11/21 13:07 [From BACTRIM] UPSET Assessment & Plan Assessment & Plan (1) Major depressive disorder, recurrent episode, severe with anxious distress: Status: Acute Code(s): F33.2 - Major depressive disorder, recurrent severe without psychotic features (2) Chronic abdominal pain: Status: Acute Code(s): R10.9 - Unspecified abdominal pain; G89.29 - Other chronic pain (3) Anxiety: Status: Acute Code(s): F41.9 - Anxiety disorder, unspecified (4) COPD (chronic obstructive pulmonary disease): Qualifiers: COPD type: unspecified COPD Qualified Code(s): J44.9 - Chronic obstructive pulmonary disease, unspecified Status: Acute Code(s): J44.9 - Chronic obstructive pulmonary disease, unspecified (5) Stented coronary artery: Status: Acute Code(s): Z95.5 - Presence of coronary angioplasty implant and graft Assessment and Plan: Patient is a 71-year-old male with history of depression and anxiety, past trials of ECT and multiple medical comorbidities, who was recently discharged from [facility] inpatient unit this pastJun2020, who presents for depression and anxiety and complaining of IBS. Patient gives some conflicting report at 1stsaying he is not depressed but then saying he is depressed but only due to abdominal pain. Patient's problem list includes history of chronic abdominal pain though patient said this only started recently. Patient says that his GI specialist told him he does not need GI but needs psychiatric unit. Crisis note reports that patient has been severely depressed at home with an increased in anxiety. Will admit patient for further evaluation. Plan: Patient on CV Q 15 minutes checks Team discussion resulted in agreement that patient is to be transferred to Geriatric Unit, to which patient agrees Will defer to primary team on whether or not to consult GI Otherwise continue on current medications -dicyclomine raised to 40 mg -simethicone added t.i.d. before meals Greater than 50% of the session was spent on counseling and/or coordination of care Reason for contiued inpatient stay Substantial Risk for: harm to self
[2021-05-13] MEDS: LORazepam 0.5 MG TABLET PO (08:02)
[2021-05-13] MEDS: Famotidine 20 MG TABLET 40 MG PO ×2 (09:05→19:43)
[2021-05-13] MEDS: Fluticasone/Vilanterol 100/25 BLST.W.DEV 1 PUFF INHALE (09:05)
[2021-05-13] MEDS: polyethylene glycoL 3350 17 GM POWD.PACK PO (09:06)
[2021-05-13] MEDS: Acetaminophen 325 MG TABLET 650 MG PO ×3 (10:19→21:10)
[2021-05-13] MEDS: LORazepam 1 MG TABLET PO ×2 (13:56→21:10)
[2021-05-13 18:00] VITALS: BP 108/64; PULSE 99; RESP 18; TEMP 36.5; O2SAT 94
--- NOTE | 2021-05-13 18:08 | PC.NURSE ---
Pt reports being prescribed the FODMAP diet for IBS.
[2021-05-13 19:42] VITALS: BP 108/64; PULSE 99
[2021-05-13] MEDS: Nortriptyline HCl 10 MG CAPSULE PO (19:42)
[2021-05-13] MEDS: amLODIPine Besylate 10 MG TABLET PO (19:42)
[2021-05-14 06:00] VITALS: BP 131/74; PULSE 87; TEMP 36.6; O2SAT 98
[2021-05-14] MEDS: Simethicone 80 MG TAB.CHEW PO ×3 (07:52→16:07)
[2021-05-14] MEDS: Dicyclomine HCl 10 MG CAPSULE 40 MG PO ×4 (07:52→19:59)
[2021-05-14] MEDS: Albuterol Sulfate 90 MCG 8 GM INHALER 2 PUFF INHALE (08:13)
[2021-05-14] MEDS: Fluticasone/Vilanterol 100/25 BLST.W.DEV 1 PUFF INHALE (08:13)
[2021-05-14] MEDS: LORazepam 1 MG TABLET PO ×3 (08:13→20:09)
[2021-05-14] MEDS: polyethylene glycoL 3350 17 GM POWD.PACK PO (08:14)
[2021-05-14] MEDS: Famotidine 20 MG TABLET 40 MG PO ×2 (08:14→20:00)
[2021-05-14] MEDS: Acetaminophen 325 MG TABLET 650 MG PO ×2 (12:41→18:18)
[2021-05-14] MEDS: Magnesium Hydrox/Alum Hydrox 30 ML ORAL.SUSP PO ×2 (15:06→21:18)
[2021-05-14 18:00] VITALS: BP 143/68; PULSE 85; TEMP 36.2; O2SAT 98
[2021-05-14] MEDS: Nortriptyline HCl 10 MG CAPSULE PO (19:59)
[2021-05-14 20:00] VITALS: BP 122/73; PULSE 90
[2021-05-14] MEDS: amLODIPine Besylate 10 MG TABLET PO (20:00)
[2021-05-15 06:00] VITALS: BP 94/65; PULSE 93; RESP 20; TEMP 36.6; O2SAT 98
[2021-05-15] MEDS: Dicyclomine HCl 10 MG CAPSULE 40 MG PO ×4 (07:56→20:16)
[2021-05-15] MEDS: Simethicone 80 MG TAB.CHEW PO ×3 (07:59→15:47)
[2021-05-15] MEDS: Famotidine 20 MG TABLET 40 MG PO ×2 (08:00→20:17)
[2021-05-15] MEDS: polyethylene glycoL 3350 17 GM POWD.PACK PO (08:01)
[2021-05-15] MEDS: Fluticasone/Vilanterol 100/25 BLST.W.DEV 1 PUFF INHALE (08:02)
[2021-05-15] MEDS: LORazepam 1 MG TABLET PO ×3 (10:39→21:48)
[2021-05-15] MEDS: Magnesium Hydrox/Alum Hydrox 30 ML ORAL.SUSP PO (11:10)
--- NOTE | 2021-05-15 11:10 | P.PNPSI_ITS ---
Subjective Subjective Date of Service: 05/15/21 Reason For Visit: SI Subjective Notes: Conditional Voluntary Interim History: Nursing staff reported the patient has refused Seroquel consistently. He also has stated that he does not want ECT because he does not work for him. He has used Ativan and he really likes the effect of that medication. On interview, the patient reported somatic symptoms due to IBS and we discussed his risk and benefits and he agreed to increase Pamelor up to 25 mg p.o. q.h.s. and add Gabapentin for chronic pain. Also, we will call G-I. He complained of depressive symptoms due to his medical problems, he admitted suicidal ideation without a clear plan. He is able to contract for safety in the unit. Review of Systems Acute medical concerns: No Medical Review of Systems: unchanged Mental Status Exam Mental Status Exam Patient Appearance: Well Grooomed Patient Orientation: Person, Place, Time and Situation Level of Consciousness: Awake and Appropriate Patient Behavior: Cooperative and Passive Mood Description: Depressed Affect Description: Constricted Patient Cognition Impaired: No Ability to Follow Directions: Good Speech Pattern: Coherent Memory Description: Normal for Patient Hallucinations: None Delusions: Not Present Thought Process: Goal Oriented and Linear Thought Content: positive for [place] and positive for Suicidal Ideation Depressive Symptoms: Diff. Making Decisions, Difficulty Sleeping, Crying Spells, Feelings of Worthlessness, Significant Weight Gain and Feelings of Guilt Judgement: Fair Diagnostics Vital Signs (24Hr): Vital Signs - 24 hr 05/14/21 18:00 05/14/21 20:00 05/15/21 06:00 Temperature 97.1 F 97.9 F Pulse Rate 85 90 93 Respiratory Rate 20 Blood Pressure 143/68 H 122/73 94/65 Pulse Oximetry 98 98 Body Mass Index 23.4 Labs Results: 05/12/21 07:58 05/12/21 07:58 Medications Medications Current Medications Generic Name Dose Route Start Last Admin Trade Name Freq PRN Reason Stop Dose Admin Acetaminophen 650 mg 05/11/21 19:22 05/14/21 18:18 Acetaminophen 325 Mg Tablet PO 650 mg Q6H PRN Administration Headache/Pain Mild Scale (1-3) Al Hydroxide/Mg Hydroxide 30 ml 05/11/21 19:22 05/15/21 11:10 Magnesium Hydrox/Alum Hydrox 30 Ml Oral.Susp PO 30 ml Q6H PRN Administration Heartburn/Nausea Albuterol Sulfate 2 puff 05/12/21 08:21 05/14/21 08:13 Albuterol Sulfate 90 Mcg 8 Gm Inhaler INHALE 2 puff RQ4H PRN Administration Shortness of Breath Amlodipine Besylate 10 mg 05/12/21 21:00 05/14/21 20:00 Amlodipine Besylate 10 Mg Tablet PO 10 mg BEDTIME ÁLVARO Administration Protocol Dicyclomine HCl 40 mg 05/12/21 11:30 05/15/21 07:56 Dicyclomine Hcl 10 Mg Capsule PO 40 mg QIDACHS ÁLVARO Administration Famotidine 40 mg 05/11/21 21:15 05/15/21 08:00 Famotidine 20 Mg Tablet PO 40 mg BID ÁLVARO Administration Fluticasone/Vilanterol 1 puff 05/12/21 08:00 05/15/21 08:02 Fluticasone/Vilanterol 100/25 Blst.W.Dev INHALE 1 puff RDAILY ÁLVARO Administration Hydroxyzine HCl 25 mg 05/11/21 19:22 Hydroxyzine Hcl 25 Mg Tablet PO Q6H PRN Anxiety Lorazepam 1 mg 05/11/21 16:47 05/15/21 10:39 Lorazepam 1 Mg Tablet PO 1 mg TID PRN Administration anxiety Lorazepam 0.5 mg 05/11/21 19:28 05/13/21 08:02 Lorazepam 0.5 Mg Tablet PO 0.5 mg Q6H PRN Administration anxiety Magnesium Hydroxide 30 ml 05/11/21 19:22 Milk Of Magnesia 30 Ml Oral.Susp PO DAILY PRN Constipation Nortriptyline HCl 25 mg 05/15/21 21:00 Nortriptyline Hcl 25 Mg Capsule PO BEDTIME [facility] Oxycodone HCl 5 mg 05/11/21 16:46 05/12/21 09:12 Oxycodone Hcl Immed Release 5 Mg Tablet PO 5 mg Q6H PRN Administration Pain, Moderate (Pain Scale 4-6 Polyethylene Glycol 17 gm 05/12/21 09:00 05/15/21 08:01 Polyethylene Glycol 3350 17 Gm Powd.Pack PO 17 gm DAILY ÁLVARO Administration Simethicone 80 mg 05/12/21 11:30 05/15/21 07:59 Simethicone 80 Mg Tab.Chew PO 80 mg TIDAC [facility] Administration Tiotropium [place] 1 puff 05/12/21 08:00 05/15/21 08:02 Tiotropium [place] 18 Mcg Cap.W.Dev INHALE 1 puff RDAILY ÁLVARO Administration Trazodone HCl 50 mg 05/11/21 19:22 Trazodone Hcl 50 Mg Tablet PO BEDTIME PRN Insomnia Allergies Allergies Allergy/AdvReac Type Severity Reaction Status Date / Time lamotrigine [From LAMICTAL] Allergy Severe agitation Verified 05/11/21 13:07 and anxiety with titration codeine [CODEINE] Allergy Intermediate INSOMNIA Verified 05/11/21 13:07 Penicillins [PENICILLINS] Allergy Intermediate RASH Verified 05/11/21 13:07 epinephrine [EPINEPHRINE] AdvReac Intermediate Hypertensio Verified 05/11/21 13:07 n escitalopram [From LEXAPRO] AdvReac Intermediate NIGHTMARES Verified 05/11/21 13:07 sertraline [From ZOLOFT] AdvReac Intermediate NIGHTMARES Verified 05/11/21 13:07 sulfamethoxazole AdvReac Intermediate STOMACH Verified 05/11/21 13:07 [From BACTRIM] UPSET Assessment & Plan Assessment & Plan (1) Major depressive disorder, recurrent episode, severe with anxious distress: Status: Acute Code(s): F33.2 - Major depressive disorder, recurrent severe without psychotic features (2) Chronic abdominal pain: Status: Acute Code(s): R10.9 - Unspecified abdominal pain; G89.29 - Other chronic pain (3) Anxiety: Status: Acute Code(s): F41.9 - Anxiety disorder, unspecified (4) COPD (chronic obstructive pulmonary disease): Qualifiers: COPD type: unspecified COPD Qualified Code(s): J44.9 - Chronic obstruc tive pulmonary disease, unspecified Status: Acute Code(s): J44.9 - Chronic obstructive pulmonary disease, unspecified (5) Stented coronary artery: Status: Acute Code(s): Z95.5 - Presence of coronary angioplasty implant and graft Assessment and Plan: Patient is a 71-year-old male with history of depression and anxiety, past trials of ECT and multiple medical comorbidities, who was recently discharged from [facility] inpatient unit this pastJune 2020, who presents for de pression and anxiety and complaining of IBS. Patient gives some conflicting report at 1stsaying he is not depressed but then saying he is depressed but only due to abdominal pain. Patient's problem list includes history of chronic abdominal pain though patient said this only started recently. Patient says that his GI specialist told him he does not need GI but needs psychiatric unit. Crisis note reports that patient has been severely depressed at home with an increased in anxiety. Will admit patient for further evaluation. Plan: Patient on CV Q 15 minutes checks Otherwise continue on current medications -dicyclomine raised to 40 mg -simethicone added t.i.d. before meals -increased Pamelor up to 25 mg p.o. q.h.s. to target IBS and depression. -consult GI to reassess. Greater than 50% of the session was spent on counseling and/or coordination of care Reason for contiued inpatient stay Substantial Risk for: harm to self, inability to function, rapid decompensation and med/psych decompensation
[2021-05-15] MEDS: Acetaminophen 325 MG TABLET 650 MG PO (17:38)
[2021-05-15 20:17] VITALS: BP 130/76; PULSE 93
[2021-05-15] MEDS: Gabapentin 100 MG CAPSULE PO (20:17)
[2021-05-15] MEDS: Nortriptyline HCl 25 MG CAPSULE PO (20:17)
[2021-05-15] MEDS: amLODIPine Besylate 10 MG TABLET PO (20:17)
[2021-05-15 20:30] VITALS: BP 130/76; PULSE 93; RESP 20; TEMP 36.3; O2SAT 97
[2021-05-16] MEDS: Simethicone 80 MG TAB.CHEW PO ×3 (07:59→16:53)
[2021-05-16] MEDS: Dicyclomine HCl 10 MG CAPSULE 40 MG PO ×4 (07:59→20:56)
[2021-05-16 09:27] VITALS: BP 107/75; PULSE 83; RESP 16; TEMP 36.8; O2SAT 98
[2021-05-16] MEDS: Famotidine 20 MG TABLET 40 MG PO ×2 (09:29→20:58)
[2021-05-16] MEDS: Gabapentin 100 MG CAPSULE PO ×3 (09:29→20:58)
[2021-05-16] MEDS: Fluticasone/Vilanterol 100/25 BLST.W.DEV 1 PUFF INHALE (09:32)
[2021-05-16] MEDS: LORazepam 0.5 MG TABLET PO ×2 (11:40→20:59)
[2021-05-16] MEDS: Acetaminophen 325 MG TABLET 650 MG PO (11:42)
--- NOTE | 2021-05-16 14:08 | P.PNPSI_ITS ---
Subjective Subjective Date of Service: 05/16/21 Reason For Visit: SI Subjective Notes: Conditional Voluntary Interim History: The patient reports abdominal pain and other symptoms related to IBS. On interview, the patient admitted to depressed mood, anhedonia, lack of energy feelings of hopelessness and suicidal thoughts but he is able to contract for safety in the unit. Mental Status Exam Mental Status Exam Patient Appearance: Well Grooomed Patient Orientation: Person Level of Consciousness: Awake Patient Behavior: Appropriate Mood Description: Depressed Affect Description: Constricted Patient Cognition Impaired: No Ability to Follow Directions: Good Speech Pattern: Clear Memory Description: Intact Hallucinations: None Delusions: Not Present Thought Process: Goal Oriented Thought Content: positive for Circumstantial Depressive Symptoms: Changes in Appetite, Crying Spells and Significant Weight Gain Judgement: Fair Diagnostics Vital Signs (24Hr): Vital Signs - 24 hr 05/15/21 20:17 05/15/21 20:30 05/16/21 09:27 Temperature 97.4 F 98.2 F Pulse Rate 93 93 83 Respiratory Rate 20 16 Blood Pressure 130/76 130/76 107/75 Pulse Oximetry 97 98 Body Mass Index 23.4 Labs Results: 05/12/21 07:58 05/12/21 07:58 Medications Medications Current Medications Generic Name Dose Route Start Last Admin Trade Name Freq PRN Reason Stop Dose Admin Acetaminophen 650 mg 05/11/21 19:22 05/16/21 11:42 Acetaminophen 325 Mg Tablet PO 650 mg Q6H PRN Administration Headache/Pain Mild Scale (1-3) Al Hydroxide/Mg Hydroxide 30 ml 05/11/21 19:22 05/15/21 11:10 Magnesium Hydrox/Alum Hydrox 30 Ml Oral.Susp PO 30 ml Q6H PRN Administration Heartburn/Nausea Albuterol Sulfate 2 puff 05/12/21 08:21 05/14/21 08:13 Albuterol Sulfate 90 Mcg 8 Gm Inhaler INHALE 2 puff RQ4H PRN Administration Shortness of Breath Amlodipine Besylate 10 mg 05/12/21 21:00 05/15/21 20:17 Amlodipine Besylate 10 Mg Tablet PO 10 mg BEDTIME ÁLVARO Administration Protocol Dicyclomine HCl 40 mg 05/12/21 11:30 05/16/21 11:11 Dicyclomine Hcl 10 Mg Capsule PO 40 mg QIDACHS ÁLVARO Administration Famotidine 40 mg 05/11/21 21:15 05/16/21 09:29 Famotidine 20 Mg Tablet PO 40 mg BID ÁLVARO Administration Fluticasone/Vilanterol 1 puff 05/12/21 08:00 05/16/21 09:32 Fluticasone/Vilanterol 100/25 Blst.W.Dev INHALE 1 puff RDAILY ÁLVARO Administration Gabapentin 100 mg 05/15/21 21:00 05/16/21 09:29 Gabapentin 100 Mg Capsule PO 100 mg TID ÁLVARO Administration Hydroxyzine HCl 25 mg 05/11/21 19:22 Hydroxyzine Hcl 25 Mg Tablet PO Q6H PRN Anxiety Lorazepam 1 mg 05/16/21 09:14 Lorazepam 1 Mg Tablet PO BID PRN Anxiety Lorazepam 0.5 mg 05/16/21 09:39 05/16/21 11:40 Lorazepam 0.5 Mg Tablet PO 0.5 mg TID ÁLVARO Administration Magnesium Hydroxide 30 ml 05/11/21 19:22 Milk Of Magnesia 30 Ml Oral.Susp PO DAILY PRN Constipation Nortriptyline HCl 25 mg 05/15/21 21:00 05/15/21 20:17 Nortriptyline Hcl 25 Mg Capsule PO 25 mg BEDTIME [facility] Administration Oxycodone HCl 5 mg 05/11/21 16:46 05/12/21 09:12 Oxycodone Hcl Immed Release 5 Mg Tablet PO 5 mg Q6H PRN Administration Pain, Moderate (Pain Scale 4-6 Polyethylene Glycol 17 gm 05/12/21 09:00 05/16/21 10:48 Polyethylene Glycol 3350 17 Gm Powd.Pack PO Not Given DAILY [facility] Simethicone 80 mg 05/12/21 11:30 05/16/21 11:11 Simethicone 80 Mg Tab.Chew PO 80 mg TIDAC [facility] Administration Tiotropium [place] 1 puff 05/12/21 08:00 05/16/21 09:32 Tiotropium [place] 18 Mcg Cap.W.Dev INHALE 1 puff RDAILY ÁLVARO Administration Trazodone HCl 50 mg 05/11/21 19:22 Trazodone Hcl 50 Mg Tablet PO BEDTIME PRN Insomnia Allergies Allergies Allergy/AdvReac Type Severity Reaction Status Date / Time lamotrigine [From LAMICTAL] Allergy Severe agitation Verified 05/11/21 13:07 and anxiety with titration codeine [CODEINE] Allergy Intermediate INSOMNIA Verified 05/11/21 13:07 Penicillins [PENICILLINS] Allergy Intermediate RASH Verified 05/11/21 13:07 epinephrine [EPINEPHRINE] AdvReac Intermediate Hypertensio Verified 05/11/21 13:07 n escitalopram [From LEXAPRO] AdvReac Intermediate NIGHTMARES Verified 05/11/21 13:07 sertraline [From ZOLOFT] AdvReac Intermediate NIGHTMARES Verified 05/11/21 13:07 sulfamethoxazole AdvReac Intermediate STOMACH Verified 05/11/21 13:07 [From BACTRIM] UPSET Assessment & Plan Assessment & Plan (1) Major depressive disorder, recurrent episode, severe with anxious distress: Status: Acute Code(s): F33.2 - Major depressive disorder, recurrent severe without psychotic features (2) Chronic abdominal pain: Status: Acute Code(s): R10.9 - Unspecified abdominal pain; G89.29 - Other chronic pain (3) Anxiety: Status: Acute Code(s): F41.9 - Anxiety disorder, unspecified (4) COPD (chronic obstructive pulmonary disease): Qualifiers: COPD type: unspecified COPD Qualified Code(s): J44.9 - Chronic o bstructive pulmonary disease, unspecified Status: Acute Code(s): J44.9 - Chronic obstructive pulmonary disease, unspecified (5) Stented coronary artery: Status: Acute Code(s): Z95.5 - Presence of coronary angioplasty implant and graft Assessment and Plan: Patient is a 71-year-old male with history of depression and anxiety, past trials of ECT and multiple medical comorbidities, who was recently discharged from [facility] inpatient unit this pastJune 2020, who presents for depression and anxiety and complaining of IBS. Patient gives some conflicting report at 1stsaying he is not depressed but then saying he is depressed but only due to abdominal pain. Patient's problem list includes history of chronic abdominal pain though patient said this only started recently. Patient says that his GI specialist told him he does not need GI but needs psychiatric unit. Crisis note reports that patient has been severely depressed at home with an increased in anxiety. Will admit patient for further evaluation. Plan: Patient on CV Q 15 minutes checks Otherwise continue on current medications -dicyclomine raised to 40 mg -simethicone added t.i.d. before meals -increased Pamelor up to 25 mg p.o. q.h.s. to target IBS and depression. -started on gabapentin 100 mg p.o. t.i.d. -consult GI to reassess. Greater than 50% of the session was spent on counseling and/or coordination of care Reason for contiued inpatient stay Substantial Risk for: harm to self, inability to function, rapid decompensation and med/psych decompensation
[2021-05-16] MEDS: LORazepam 1 MG TABLET PO (17:38)
[2021-05-16 18:00] VITALS: BP 120/68; PULSE 87; TEMP 35.6; O2SAT 96
--- NOTE | 2021-05-16 19:05 | CONS_ITS ---
DATE OF SERVICE: 05/16/2021 REFERRING PHYSICIAN: Lobito Perez MD REASON FOR CONSULTATION: Irritable bowel syndrome. HISTORY OF PRESENT ILLNESS: The patient is a 71-year-old man, well known to me from prior evaluation. He has a longstanding history of gastroesophageal reflux disease and irritable bowel syndrome with both diarrhea and constipation, for which he is being treated as an outpatient. He was admitted to the Geriatric Psychiatry Unit on May 12 because of problems with anxiety and followup has been requested for his IBS. He was last seen in the outpatient setting approximately 3 weeks ago for followup of IBS and gastroesophageal reflux disease. At that time, he was complaining of bloating and constant pressure across the abdomen. He had been recently seen in the emergency department and prescribed azithromycin and prednisone for lung issues. The azithromycin causes severe GI upset and he stopped taking this. At the office visit, he was switched from pantoprazole to famotidine for his reflux and continued his dicyclomine 30 mg 3 times a day. Since admission, he reports he has had his dicyclomine increased to 40 mg 4 times daily with some improvement in his GI symptoms. He is getting scheduled MiraLAX for constipated symptoms and relief of gas and bloating, but did have some diarrhea today and we discussed that he can refuse doses of MiraLAX when he has diarrhea. He has also been started on Neurontin, which he believes is being used for some GI issues and this seems to have helped him as well. He has had a thorough outpatient GI evaluation including the followin. Colonoscopy, 03/23/2019, remarkable for diverticulosis, hemorrhoids, and colon polyps. Pathology showed tubular adenomas, hyperplastic polyp, and no evidence of colitis or ileitis. 2. Upper endoscopy, 12/16/2018. Findings including a small hiatal hernia, prominent gastric folds with antral gastritis and erosions and a benign-appearing duodenal nodule. Pathology showed no H pylori, chronic duodenitis, and no evidence of ulcer. 3. Celiac testing and testing for pancreatic insufficiency in 2019, both negative. 4. CT scanning of the abdomen and pelvis, 04/02/2021, diverticulosis of the colon without diverticulitis. No other acute findings. 5. Upper GI series, 05/01/2021, thickened folds involving the gastric antrum as previously seen on upper GI endoscopy. 6. Recent laboratory testing including normal liver profile, lipase, and CBC over the past week. PAST MEDICAL HISTORY: 1. Coronary artery disease with history of VA and stent placement. 2. Hypertension. 3. COPD. 4. IBS. 5. Anxiety/depression. 6. Inguinal hernia repair. 7. Cholecystectomy. CURRENT MEDICATIONS: His current medication list is reviewed in the chart. ALLERGIES: THERE ARE MULTIPLE MEDICATION ALLERGIES, WHICH ARE REVIEWED. FAMILY HISTORY: This is reviewed with the patient and is positive for coronary artery disease. SOCIAL HISTORY: There is no current tobacco, alcohol, or substance abuse. REVIEW OF SYSTEMS: SKIN: No pruritus. HEENT: Negative. CARDIOPULMONARY: No shortness of breath or chest pain. GASTROINTESTINAL: As above. GENITOURINARY: Negative. NEUROPSYCHIATRIC: Negative. PHYSICAL EXAMINATION: GENERAL: Shows a pleasant male. He seems somewhat less anxious than he had at his last office visit. SKIN: Pale. HEENT: Shows no scleral icterus. NECK: Without lymphadenopathy or thyromegaly. LUNGS: Clear. HEART: Shows a regular rate and rhythm. S1, S2. No murmur. ABDOMEN: Soft without focal masses or tenderness. Bowel sounds are present. No organomegaly is noted. EXTREMITIES: Without edema. VITAL SIGNS: Reviewed and are stable. IMPRESSION: Irritable bowel syndrome. At this point, he seems to be doing better on his present regimen. I would recommend continuing dicyclomine 40 mg q.i.d. for the time being. I did discuss with him the anticholinergic side effects of this medication and he seems to be tolerating it fairly well. He has been started on Neurontin, which also seems to be helping. I encouraged him to keep a list of foods that seem to bother him, which he is doing as he has been following the FODMAP diet with some success. Based on his workup to date, I do not think he needs followup GI endoscopy at this time. This was discussed with the patient. Thanks for asking me to see him. I will follow him in the hospital with you. MD YANG Vale/MARIAM / [id number]
[2021-05-16 20:57] VITALS: BP 120/68; PULSE 87
[2021-05-16] MEDS: amLODIPine Besylate 10 MG TABLET PO (20:57)
[2021-05-16] MEDS: Nortriptyline HCl 25 MG CAPSULE PO (20:58)
[2021-05-17] MEDS: Simethicone 80 MG TAB.CHEW PO ×3 (07:52→16:20)
[2021-05-17] MEDS: Dicyclomine HCl 10 MG CAPSULE 40 MG PO ×4 (07:52→20:38)
[2021-05-17] MEDS: LORazepam 0.5 MG TABLET PO ×2 (09:07→15:12)
[2021-05-17] MEDS: Gabapentin 100 MG CAPSULE PO ×2 (09:07→15:13)
[2021-05-17] MEDS: Famotidine 20 MG TABLET 40 MG PO ×2 (09:07→20:36)
[2021-05-17] MEDS: Fluticasone/Vilanterol 100/25 BLST.W.DEV 1 PUFF INHALE (09:08)
[2021-05-17 09:18] VITALS: BP 123/80; PULSE 82; RESP 20; TEMP 36.6; O2SAT 94
--- NOTE | 2021-05-17 11:41 | HO.PSYCHPN ---
Subjective Subjective Date of Service: 05/17/21 Reason For Visit: SI Interim History: Nursing staff reported the patient has been complaining of symptoms of IBS. Yesterday, Dr. May saw him and did not recommend any new changes. The patient reported the gabapentin has helped him a little anxious inside in chronic pain. On interview, the patient reported that he is still feeling depressed with abdominal pain and cramps. We discussed options and he agreed on the plan below Review of Systems Acute medical concerns: Yes Active IBS Medical Review of Systems: unchanged Mental Status Exam Mental Status Exam Patient Appearance: Well Grooomed Patient Orientation: Person Level of Consciousness: Awake Patient Behavior: Appropriate Mood Description: Withdrawn and Depressed Affect Description: Constricted Patient Cognition Impaired: No Ability to Follow Directions: Good Speech Pattern: Clear Memory Description: Intact Hallucinations: None Delusions: Not Present Thought Process: Intact Thought Content: positive for Circumstantial and positive for Preoccupation Depressive Symptoms: Increased Anxiety, Increased Irritability and Difficulty Sleeping Judgement: Fair Diagnostics Vital Signs (24Hr): Vital Signs - 24 hr 05/16/21 18:00 05/16/21 20:57 05/17/21 09:18 Temperature 96.1 F L 97.8 F Pulse Rate 87 87 82 Respiratory Rate 20 Blood Pressure 120/68 120/68 123/80 Pulse Oximetry 96 94 Body Mass Index 23.4 Labs Results: 05/12/21 07:58 05/12/21 07:58 Medications Medications Current Medications Generic Name Dose Route Start Last Admin Trade Name Freq PRN Reason Stop Dose Admin Acetaminophen 650 mg 05/11/21 19:22 05/16/21 11:42 Acetaminophen 325 Mg Tablet PO 650 mg Q6H PRN Administration Headache/Pain Mild Scale (1-3) Al Hydroxide/Mg Hydroxide 30 ml 05/11/21 19:22 05/15/21 11:10 Magnesium Hydrox/Alum Hydrox 30 Ml Oral.Susp PO 30 ml Q6H PRN Administration Heartburn/Nausea Albuterol Sulfate 2 puff 05/12/21 08:21 05/14/21 08:13 Albuterol Sulfate 90 Mcg 8 Gm Inhaler INHALE 2 puff RQ4H PRN Administration Shortness of Breath Amlodipine Besylate 10 mg 05/12/21 21:00 05/16/21 20:57 Amlodipine Besylate 10 Mg Tablet PO 10 mg BEDTIME ÁLVARO Administration Protocol Dicyclomine HCl 40 mg 05/12/21 11:30 05/17/21 11:29 Dicyclomine Hcl 10 Mg Capsule PO 40 mg QIDACHS ÁLVARO Administration Famotidine 40 mg 05/11/21 21:15 05/17/21 09:07 Famotidine 20 Mg Tablet PO 40 mg BID ÁLVARO Administration Fluticasone/Vilanterol 1 puff 05/12/21 08:00 05/17/21 09:08 Fluticasone/Vilanterol 100/25 Blst.W.Dev INHALE 1 puff RDAILY ÁLVARO Administration Gabapentin 100 mg 05/15/21 21:00 05/17/21 09:07 Gabapentin 100 Mg Capsule PO 100 mg TID ÁLVARO Administration Hydroxyzine HCl 25 mg 05/11/21 19:22 Hydroxyzine Hcl 25 Mg Tablet PO Q6H PRN Anxiety Lorazepam 1 mg 05/16/21 09:14 05/16/21 17:38 Lorazepam 1 Mg Tablet PO 1 mg BID PRN Administration Anxiety Lorazepam 0.5 mg 05/16/21 09:39 05/17/21 09:07 Lorazepam 0.5 Mg Tablet PO 0.5 mg TID ÁLVARO Administration Magnesium Hydroxide 30 ml 05/11/21 19:22 Milk Of Magnesia 30 Ml Oral.Susp PO DAILY PRN Constipation Nortriptyline HCl 25 mg 05/15/21 21:00 05/16/21 20:58 Nortriptyline Hcl 25 Mg Capsule PO 25 mg BEDTIME ÁLVARO Administration Oxycodone HCl 5 mg 05/11/21 16:46 05/12/21 09:12 Oxycodone Hcl Immed Release 5 Mg Tablet PO 5 mg Q6H PRN Administration Pain, Moderate (Pain Scale 4-6 Polyethylene Glycol 17 gm 05/12/21 09:00 05/16/21 10:48 Polyethylene Glycol 3350 17 Gm Powd.Pack PO Not Given DAILY ÁLVARO Simethicone 80 mg 05/12/21 11:30 05/17/21 11:29 Simethicone 80 Mg Tab.Chew PO 80 mg TIDAC [facility] Administration Tiotropium [place] 1 puff 05/12/21 08:00 05/17/21 09:08 Tiotropium [place] 18 Mcg Cap.W.Dev INHALE 1 puff RDAILY [facility] Administration Trazodone HCl 50 mg 05/11/21 19:22 Trazodone Hcl 50 Mg Tablet PO BEDTIME PRN Insomnia Allergies Allergies Allergy/AdvReac Type Severity Reaction Status Date / Time lamotrigine [From LAMICTAL] Allergy Severe agitation Verified 05/11/21 13:07 and anxiety with titration codeine [CODEINE] Allergy Intermediate INSOMNIA Verified 05/11/21 13:07 Penicillins [PENICILLINS] Allergy Intermediate RASH Verified 05/11/21 13:07 epinephrine [EPINEPHRINE] AdvReac Intermediate Hypertensio Verified 05/11/21 13:07 n escitalopram [From LEXAPRO] AdvReac Intermediate NIGHTMARES Verified 05/11/21 13:07 sertraline [From ZOLOFT] AdvReac Intermediate NIGHTMARES Verified 05/11/21 13:07 sulfamethoxazole AdvReac Intermediate STOMACH Verified 05/11/21 13:07 [From BACTRIM] UPSET Assessment & Plan Assessment & Plan (1) Major depressive disorder, recurrent episode, severe with anxious distress: Status: Acute Code(s): F33.2 - Major depressive disorder, recurrent severe without psychotic features (2) Chronic abdominal pain: Status: Acute Code(s): R10.9 - Unspecified abdominal pain; G89.29 - Other chronic pain (3) Anxiety: Status: Acute Code(s): F41.9 - Anxiety disorder, unspecified (4) COPD (chronic obstructive pulmonary disease): Qualifiers: COPD type: unspecified COPD Qualified Code(s): J44.9 - Chronic obstructive pulmonary disease, unspecified Status: Acute Code(s): J44.9 - Chronic obstructive pulmonary disease, unspecified (5) Stented coronary artery: Status: Acute Code(s): Z95.5 - Presence of coronary angioplasty implant and graft Assessment and Plan: Patient is a 71-year-old male with history of depression and anxiety, past trials of ECT and multiple medical comorbidities, who was recently discharged from [facility] inpatient unit this pastJune 2020, who presents for depression and anxiety and complaining of IBS. Patient gives some conflicting report at 1stsaying he is not depressed but then saying he is depressed but only due to abdominal pain. Patient's problem list includes history of chronic abdominal pain though patient said this only started recently. Patient says that his GI specialist told him he does not need GI but needs psychiatric unit. Crisis note reports that patient has been severely depressed at home with an increased in anxiety. Will admit patient for further evaluation. Plan: Patient on CV Q 15 minutes checks Otherwise continue on current medications -dicyclomine raised to 40 mg -simethicone added t.i.d. before meals -increased Pamelor up to 25 mg p.o. q.h.s. to target IBS and depression. -increase gabapentin up to 200 mg p.o. t.i.d. -consult GI to reassess. The preferred eating change any of his medications at this moment Greater than 50% of the session was spent on counseling and/or coordination of care Reason for contiued inpatient stay Substantial Risk for: harm to self, inability to function, rapid decompensation and med/psych decompensation
[2021-05-17] MEDS: polyethylene glycoL 3350 17 GM POWD.PACK PO (12:55)
--- NOTE | 2021-05-17 17:49 | PC.NURSE ---
Patient has been pacing in the hallway most of the shift rubbing his abdomen. He perseverates on his IBS and has stated that IF I wasn't in so much pain from my IBS I wouldn't be depressed. Patient has been given printout of FODMAP diet but doesn't appear to be trying to follow it when placing orders for meals. He exhibits much more concern about IBS than depression. No SI verbalized.
[2021-05-17 18:29] VITALS: BP 125/67; PULSE 103; RESP 18; TEMP 36.6; O2SAT 96
[2021-05-17] MEDS: Nortriptyline HCl 25 MG CAPSULE 50 MG PO (20:36)
[2021-05-17 20:37] VITALS: BP 108/75; PULSE 109
[2021-05-17] MEDS: Gabapentin 100 MG CAPSULE 200 MG PO (20:37)
[2021-05-17] MEDS: amLODIPine Besylate 10 MG TABLET PO (20:37)
[2021-05-18 06:00] VITALS: BP 128/70; PULSE 94; TEMP 36.5; O2SAT 97
[2021-05-18 07:00] VITALS: BMI 28.3
[2021-05-18] MEDS: Dicyclomine HCl 10 MG CAPSULE 40 MG PO ×4 (07:39→20:22)
[2021-05-18] MEDS: Simethicone 80 MG TAB.CHEW PO ×3 (07:40→16:25)
[2021-05-18] MEDS: Fluticasone/Vilanterol 100/25 BLST.W.DEV 1 PUFF INHALE (07:41)
[2021-05-18] MEDS: Gabapentin 100 MG CAPSULE 200 MG PO ×3 (08:45→20:22)
[2021-05-18] MEDS: Famotidine 20 MG TABLET 40 MG PO ×2 (08:45→20:22)
[2021-05-18] MEDS: polyethylene glycoL 3350 17 GM POWD.PACK PO (08:46)
[2021-05-18] MEDS: LORazepam 0.5 MG TABLET PO ×2 (08:46→14:55)
--- NOTE | 2021-05-18 11:09 | HO.PSYCHPN ---
Subjective Subjective Date of Service: 05/18/21 Reason For Visit: SI Subjective Notes: Conditional Voluntary Interim History: Nursing staff reported the patient was DC with a increase of gabapentin. Today on interview, the patient reported depressive symptoms elicited by depressed mood, anhedonia, lack of primary and feelings of hopelessness that impairs his performance of his ADLs. Also, physically he feels sick with frequent crimes and pains due to IBS. At this moment, the patient reports that he cannot take care of himself due to his depression and IBS. Mental Status Exam Mental Status Exam Patient Appearance: Well Grooomed Patient Orientation: Person Level of Consciousness: Awake and Appropriate Patient Behavior: Dependent, Cooperative and Passive Mood Description: Withdrawn and Depressed Affect Description: Constricted Patient Cognition Impaired: No Ability to Follow Directions: Good Speech Pattern: Clear Memory Description: Intact Hallucinations: None Delusions: Not Present Thought Process: Goal Oriented Thought Content: positive for Circumstantial, positive for Perseveration and positive for Logical Depressive Symptoms: Increased Anxiety, Difficulty Sleeping, Crying Spells, Significant Weight Loss, Loss of Int. in Activity, Feelings of Worthlessness and Feelings of Guilt Abnormal Motor Activity Signs and Symptoms: Psychomotor Retardation Judgement: Fair Diagnostics Vital Signs (24Hr): Vital Signs - 24 hr 05/17/21 18:29 05/17/21 20:37 05/18/21 06:00 Temperature 97.9 F 97.7 F Pulse Rate 103 H 109 H 94 Respiratory Rate 18 Blood Pressure 125/67 108/75 128/70 Pulse Oximetry 96 97 Body Mass Index 23.4 Labs Results: 05/12/21 07:58 05/12/21 07:58 Medications Medications Current Medications Generic Name Dose Route Start Last Admin Trade Name Freq PRN Reason Stop Dose Admin Acetaminophen 650 mg 05/11/21 19:22 05/16/21 11:42 Acetaminophen 325 Mg Tablet PO 650 mg Q6H PRN Administration Headache/Pain Mild Scale (1-3) Al Hydroxide/Mg Hydroxide 30 ml 05/11/21 19:22 05/15/21 11:10 Magnesium Hydrox/Alum Hydrox 30 Ml Oral.Susp PO 30 ml Q6H PRN Administration Heartburn/Nausea Albuterol Sulfate 2 puff 05/12/21 08:21 05/14/21 08:13 Albuterol Sulfate 90 Mcg 8 Gm Inhaler INHALE 2 puff RQ4H PRN Administration Shortness of Breath Amlodipine Besylate 10 mg 05/12/21 21:00 05/17/21 20:37 Amlodipine Besylate 10 Mg Tablet PO 10 mg BEDTIME ÁLVARO Administration Protocol Dicyclomine HCl 40 mg 05/12/21 11:30 05/18/21 07:39 Dicyclomine Hcl 10 Mg Capsule PO 40 mg QIDACHS ÁLVARO Administration Famotidine 40 mg 05/11/21 21:15 05/18/21 08:45 Famotidine 20 Mg Tablet PO 40 mg BID ÁLVARO Administration Fluticasone/Vilanterol 1 puff 05/12/21 08:00 05/18/21 07:41 Fluticasone/Vilanterol 100/25 Blst.W.Dev INHALE 1 puff RDAILY ÁLVARO Administration Gabapentin 200 mg 05/17/21 21:00 05/18/21 08:45 Gabapentin 100 Mg Capsule PO 200 mg TID ÁLVARO Administration Lorazepam 1 mg 05/16/21 09:14 05/16/21 17:38 Lorazepam 1 Mg Tablet PO 1 mg BID PRN Administration Anxiety Lorazepam 0.5 mg 05/16/21 09:39 05/18/21 08:46 Lorazepam 0.5 Mg Tablet PO 0.5 mg TID ÁLVARO Administration Magnesium Hydroxide 30 ml 05/11/21 19:22 Milk Of Magnesia 30 Ml Oral.Susp PO DAILY PRN Constipation Nortriptyline HCl 50 mg 05/17/21 21:00 05/17/21 20:36 Nortriptyline Hcl 25 Mg Capsule PO 50 mg BEDTIME ÁLVARO Administration Oxycodone HCl 5 mg 05/11/21 16:46 05/12/21 09:12 Oxycodone Hcl Immed Release 5 Mg Tablet PO 5 mg Q6H PRN Administration Pain, Moderate (Pain Scale 4-6 Polyethylene Glycol 17 gm 05/12/21 09:00 05/18/21 08:46 Polyethylene Glycol 3350 17 Gm Powd.Pack PO 17 gm DAILY ÁLVARO Administration Simethicone 80 mg 05/12/21 11:30 05/18/21 07:40 Simethicone 80 Mg Tab.Chew PO 80 mg TIDAC ÁLVARO Administration Tiotropium [place] 1 puff 05/12/21 08:00 05/18/21 08:49 Tiotropium [place] 18 Mcg Cap.W.Dev INHALE 1 puff RDAILY ÁLVARO Administration Trazodone HCl 50 mg 05/11/21 19:22 Trazodone Hcl 50 Mg Tablet PO BEDTIME PRN Insomnia Allergies Allergies Allergy/AdvReac Type Severity Reaction Status Date / Time lamotrigine [From LAMICTAL] Allergy Severe agitation Verified 05/11/21 13:07 and anxiety with titration codeine [CODEINE] Allergy Intermediate INSOMNIA Verified 05/11/21 13:07 Penicillins [PENICILLINS] Allergy Intermediate RASH Verified 05/11/21 13:07 epinephrine [EPINEPHRINE] AdvReac Intermediate Hypertensio Verified 05/11/21 13:07 n escitalopram [From LEXAPRO] AdvReac Intermediate NIGHTMARES Verified 05/11/21 13:07 sertraline [From ZOLOFT] AdvReac Intermediate NIGHTMARES Verified 05/11/21 13:07 sulfamethoxazole AdvReac Intermediate STOMACH Verified 05/11/21 13:07 [From BACTRIM] UPSET Assessment & Plan Assessment & Plan (1) Major depressive disorder, recurrent episode, severe with anxious distress: Status: Acute Code(s): F33.2 - Major depressive disorder, recurrent severe without psychotic features (2) Chronic abdominal pain: Status: Acute Code(s): R10.9 - Unspecified abdominal pain; G89.29 - Other chronic pain (3) Anxiety: Status: Acute Code(s): F41.9 - Anxiety disorder, unspecified (4) COPD (chronic obstructive pulmonary disease): Qualifiers: COPD type: unspecified COPD Qualified Code(s): J44.9 - Chronic obstructive pulmonary disease, unspecified Status: Acute Code(s): J44.9 - Chronic obstructive pulmonary disease, unspecified (5) Stented coronary artery: Status: Acute Code(s): Z95.5 - Presence of coronary angioplasty implant and graft Assessment and Plan: Patient is a 71-year-old male with history of depression and anxiety, past trials of ECT and multiple medical comorbidities, who was recently discharged from [facility] inpatient unit this pastJune 2020, who presents for depression and anxiety and complaining of IBS. Patient gives some conflicting report at 1stsaying he is not depressed but then saying he is depressed but only due to abdominal pain. Patient's problem list includes history of chronic abdominal pain though patient said this only started recently. Patient says that his GI specialist told him he does not need GI but needs psychiatric unit. Crisis note reports that patient has been severely depressed at home with an increased in anxiety. Will admit patient for further evaluation. Plan: Patient on CV Q 15 minutes checks Otherwise continue on current medications -dicyclomine raised to 40 mg -simethicone added t.i.d. before meals -increased Pamelor up to 25 mg p.o. q.h.s. to target IBS and depression. -increase gabapentin up to 200 mg p.o. t.i.d. -consult GI to reassess. The preferred eating change any of his medications at this moment -EKG to rule out QTC elongation and nortriptyline levels for Saturday. Greater than 50% of the session was spent on counseling and/or coordination of care Reason for contiued inpatient stay Substantial Risk for: inability to function, rapid decompensation and med/psych decompensation
[2021-05-18 18:00] VITALS: BP 123/69; PULSE 87; RESP 18; TEMP 37.1; O2SAT 96
[2021-05-18] MEDS: LORazepam 1 MG TABLET PO (18:57)
[2021-05-18] MEDS: amLODIPine Besylate 10 MG TABLET PO (20:22)
[2021-05-18] MEDS: Nortriptyline HCl 25 MG CAPSULE 50 MG PO (20:22)
--- NOTE | 2021-05-19 06:00 | ECG_ITS ---
Test Reason : R/O QTC PROLONGATION Blood Pressure : / mmHG Vent. Rate : 083 BPM Atrial Rate : 083 BPM P-R Int : 142 ms QRS Dur : 094 ms QT Int : 362 ms P-R-T Axes : 082 058 061 degrees QTc Int : 425 ms Normal sinus rhythm Normal ECG When compared with ECG of 11-MAY-2021 16:44, No significant change was found Referred By: Lobito Perez Electronically Signed By:DOMINIC TERRAZAS
[2021-05-19 08:00] VITALS: BP 121/72; PULSE 87; TEMP 36.3; O2SAT 96
[2021-05-19] MEDS: Simethicone 80 MG TAB.CHEW PO ×3 (08:30→16:01)
[2021-05-19] MEDS: Dicyclomine HCl 10 MG CAPSULE 40 MG PO ×4 (08:30→20:01)
[2021-05-19] MEDS: Famotidine 20 MG TABLET 40 MG PO ×2 (09:35→20:03)
[2021-05-19] MEDS: LORazepam 0.5 MG TABLET PO ×2 (09:35→15:01)
[2021-05-19] MEDS: Gabapentin 100 MG CAPSULE 200 MG PO ×2 (09:35→15:01)
[2021-05-19] MEDS: polyethylene glycoL 3350 17 GM POWD.PACK PO (11:20)
[2021-05-19] MEDS: Fluticasone/Vilanterol 100/25 BLST.W.DEV 1 PUFF INHALE (11:20)
--- NOTE | 2021-05-19 14:56 | HO.PSYCHPN ---
Subjective Subjective Date of Service: 05/19/21 Reason For Visit: SI Subjective Notes: Conditional Voluntary Interim History: Nursing staff reported the patient is doing fine, he complains of a slight over-sedation with increase of gabapentin. On interview the patient reported that he is less dysphoric, he reported anticholinergic symptoms with increase of Pamelor but he is able to tolerate. We discussed options and he agreed to Lord gabapentin to 100 mg p.o. t.i.d. Review of Systems Acute medical concerns: No Medical Review of Systems: unchanged Mental Status Exam Mental Status Exam Patient Appearance: Well Grooomed Patient Orientation: Person, Place, Time and Situation Level of Consciousness: Awake Patient Behavior: Cooperative Mood Description: Depressed Affect Description: Constricted Patient Cognition Impaired: No Ability to Follow Directions: Good Speech Pattern: Clear Memory Description: Intact Hallucinations: None Delusions: Not Present Thought Process: Slowed Thinking Thought Content: positive for Circumstantial Depressive Symptoms: Difficulty Sleeping and Changes in Appetite Judgement: Fair Diagnostics Vital Signs (24Hr): Vital Signs - 24 hr 05/18/21 18:00 05/19/21 08:00 Temperature 98.7 F 97.4 F Pulse Rate 87 87 Respiratory Rate 18 Blood Pressure 123/69 121/72 Pulse Oximetry 96 96 Body Mass Index 28.3 Labs Results: 05/12/21 07:58 05/12/21 07:58 Imaging Radiology Impressions: ITS Impressions Abdomen Ultrasound 05/19/21 08:25 IMPRESSION: 1. Prior cholecystectomy. No biliary ductal dilatation. No choledocholithiasis. 2. Visualized pancreas unremarkable, tail obscured by bowel gas. 3. Mild hepatic steatosis. Liver normal in size and smooth in contour. Medications Medications Current Medications Generic Name Dose Route Start Last Admin Trade Name Freq PRN Reason Stop Dose Admin Acetaminophen 650 mg 05/11/21 19:22 05/16/21 11:42 Acetaminophen 325 Mg Tablet PO 650 mg Q6H PRN Administration Headache/Pain Mild Scale (1-3) Al Hydroxide/Mg Hydroxide 30 ml 05/11/21 19:22 05/15/21 11:10 Magnesium Hydrox/Alum Hydrox 30 Ml Oral.Susp PO 30 ml Q6H PRN Administration Heartburn/Nausea Albuterol Sulfate 2 puff 05/12/21 08:21 05/14/21 08:13 Albuterol Sulfate 90 Mcg 8 Gm Inhaler INHALE 2 puff RQ4H PRN Administration Shortness of Breath Amlodipine Besylate 10 mg 05/12/21 21:00 05/18/21 20:22 Amlodipine Besylate 10 Mg Tablet PO 10 mg BEDTIME ÁLVARO Administration Protocol Dicyclomine HCl 40 mg 05/12/21 11:30 05/19/21 11:22 Dicyclomine Hcl 10 Mg Capsule PO 40 mg QIDACHS ÁLVARO Administration Famotidine 40 mg 05/11/21 21:15 05/19/21 09:35 Famotidine 20 Mg Tablet PO 40 mg BID ÁLVARO Administration Fluticasone/Vilanterol 1 puff 05/12/21 08:00 05/19/21 11:20 Fluticasone/Vilanterol 100/25 Blst.W.Dev INHALE 1 puff RDAILY ÁLVARO Administration Gabapentin 200 mg 05/17/21 21:00 05/19/21 09:35 Gabapentin 100 Mg Capsule PO 200 mg TID ÁLVARO Administration Lorazepam 1 mg 05/16/21 09:14 05/18/21 18:57 Lorazepam 1 Mg Tablet PO 1 mg BID PRN Administration Anxiety Lorazepam 0.5 mg 05/16/21 09:39 05/19/21 09:35 Lorazepam 0.5 Mg Tablet PO 0.5 mg TID ÁLVARO Administration Magnesium Hydroxide 30 ml 05/11/21 19:22 Milk Of Magnesia 30 Ml Oral.Susp PO DAILY PRN Constipation Nortriptyline HCl 50 mg 05/17/21 21:00 05/18/21 20:22 Nortriptyline Hcl 25 Mg Capsule PO 50 mg BEDTIME ÁLVARO Administration Oxycodone HCl 5 mg 05/11/21 16:46 05/12/21 09:12 Oxycodone Hcl Immed Release 5 Mg Tablet PO 5 mg Q6H PRN Administration Pain, Moderate (Pain Scale 4-6 Polyethylene Glycol 17 gm 05/12/21 09:00 05/19/21 11:20 Polyethylene Glycol 3350 17 Gm Powd.Pack PO 17 gm DAILY ÁLVARO Administration Simethicone 80 mg 05/12/21 11:30 05/19/21 11:22 Simethicone 80 Mg Tab.Chew PO 80 mg TIDAC ÁLVARO Administration Tiotropium [place] 1 puff 05/12/21 08:00 05/19/21 11:19 Tiotropium [place] 18 Mcg Cap.W.Dev INHALE 1 puff RDAILY ÁLVARO Administration Trazodone HCl 50 mg 05/11/21 19:22 Trazodone Hcl 50 Mg Tablet PO BEDTIME PRN Insomnia Allergies Allergies Allergy/AdvReac Type Severity Reaction Status Date / Time lamotrigine [From LAMICTAL] Allergy Severe agitation Verified 05/11/21 13:07 and anxiety with titration codeine [CODEINE] Allergy Intermediate INSOMNIA Verified 05/11/21 13:07 Penicillins [PENICILLINS] Allergy Intermediate RASH Verified 05/11/21 13:07 epinephrine [EPINEPHRINE] AdvReac Intermediate Hypertensio Verified 05/11/21 13:07 n escitalopram [From LEXAPRO] AdvReac Intermediate NIGHTMARES Verified 05/11/21 13:07 sertraline [From ZOLOFT] AdvReac Intermediate NIGHTMARES Verified 05/11/21 13:07 sulfamethoxazole AdvReac Intermediate STOMACH Verified 05/11/21 13:07 [From BACTRIM] UPSET Assessment & Plan Assessment & Plan (1) Major depressive disorder, recurrent episode, severe with anxious distress: Status: Acute Code(s): F33.2 - Major depressive disorder, recurrent severe without psychotic features (2) Chronic abdominal pain: Status: Acute Code(s): R10.9 - Unspecified abdominal pain; G89.29 - Other chronic pain (3) Anxiety: Status: Acute Code(s): F41.9 - Anxiety disorder, unspecified (4) COPD (chronic obstructive pulmonary disease): Qualifiers: COPD type: unspecified COPD Qualified Code(s): J44.9 - Chronic obstructive pulmonary disease, unspecified Status: Acute Code(s): J44.9 - Chronic obstructive pulmonary disease, unspecified (5) Stented coronary artery: Status: Acute Code(s): Z95.5 - Presence of coronary angioplasty implant and graft Assessment and Plan: Patient is a 71-year-old male with history of depression and anxiety, past trials of ECT and multiple medical comorbidities, who was recently discharged from [facility] inpatient unit this pastJune 2020, who presents for depression and anxiety and complaining of IBS. Patient gives some conflicting report at 1stsaying he is not depressed but then saying he is depressed but only due to abdominal pain. Patient's problem list includes history of chronic abdominal pain though patient said this only started recently. Patient says that his GI specialist told him he does not need GI but needs psychiatric unit. Crisis note reports that patient has been severely depressed at home with an increased in anxiety. Will admit patient for further evaluation. Plan: Patient on CV Q 15 minutes checks Otherwise continue on current medications -dicyclomine raised to 40 mg -simethicone added t.i.d. before meals -increased Pamelor up to 25 mg p.o. q.h.s. to target IBS and depression. -lower gabapentin up to 100 mg p.o. t.i.d. -consult GI to reassess. The preferred eating change any of his medications at this moment -EKG to rule out QTC elongation and nortriptyline levels for Saturday. Greater than 50% of the session was spent on counseling and/or coordination of care Reason for contiued inpatient stay Substantial Risk for: harm to self, inability to function, rapid decompensation and med/psych decompensation
[2021-05-19 18:00] VITALS: BP 148/74; PULSE 102; TEMP 36.7; O2SAT 96
[2021-05-19] MEDS: LORazepam 1 MG TABLET PO (19:20)
[2021-05-19] MEDS: Gabapentin 100 MG CAPSULE PO (20:02)
[2021-05-19] MEDS: Nortriptyline HCl 25 MG CAPSULE 50 MG PO (20:02)
[2021-05-19 20:03] VITALS: BP 118/80; PULSE 97
[2021-05-19] MEDS: amLODIPine Besylate 10 MG TABLET PO (20:03)
[2021-05-19] MEDS: Magnesium Hydrox/Alum Hydrox 30 ML ORAL.SUSP PO (21:59)
[2021-05-20] MEDS: Simethicone 80 MG TAB.CHEW PO ×3 (07:44→16:04)
[2021-05-20] MEDS: Dicyclomine HCl 10 MG CAPSULE 40 MG PO ×4 (07:44→20:33)
[2021-05-20 08:00] VITALS: BP 117/60; PULSE 98; RESP 16; TEMP 36.6; O2SAT 98
[2021-05-20] MEDS: Famotidine 20 MG TABLET 40 MG PO ×2 (08:54→20:32)
[2021-05-20] MEDS: Gabapentin 100 MG CAPSULE PO (08:54)
[2021-05-20] MEDS: polyethylene glycoL 3350 17 GM POWD.PACK PO (08:55)
[2021-05-20] MEDS: Fluticasone/Vilanterol 100/25 BLST.W.DEV 1 PUFF INHALE (08:55)
[2021-05-20] MEDS: LORazepam 0.5 MG TABLET PO ×2 (09:06→20:32)
[2021-05-20] MEDS: LORazepam 1 MG TABLET PO (11:41)
--- NOTE | 2021-05-20 13:30 | P.PNPSI_ITS ---
Subjective Subjective Date of Service: 05/20/21 Reason For Visit: SI Subjective Notes: Conditional Voluntary Guardianship: No Mental Status Exam Mental Status Exam Patient Appearance: Well Grooomed Patient Orientation: Person, Place, Time and Situation Level of Consciousness: Awake Patient Behavior: Cooperative Mood Description: Depressed, Anxious and Apprehensive Affect Description: Constricted and Depressed Patient Cognition Impaired: No Ability to Follow Directions: Good Speech Pattern: Clear Memory Description: Intact Hallucinations: None Delusions: Not Present Thought Process: Slowed Thinking Thought Content: positive for Circumstantial Depressive Symptoms: Difficulty Sleeping and Changes in Appetite Judgement: Fair Judgement and Insight: Patient anxious ruminating hopeless helpless despondent feeling worse Diagnostics Vital Signs (24Hr): Vital Signs - 24 hr 05/19/21 18:00 05/19/21 20:03 05/20/21 08:00 Temperature 98.1 F 97.8 F Pulse Rate 102 H 97 98 Respiratory Rate 16 Blood Pressure 148/74 H 118/80 117/60 Pulse Oximetry 96 98 Body Mass Index 28.3 Labs Results: 05/12/21 07:58 05/12/21 07:58 Imaging Radiology Impressions: ITS Impressions Abdomen Ultrasound 05/19/21 08:25 IMPRESSION: 1. Prior cholecystectomy. No biliary ductal dilatation. No choledocholithiasis. 2. Visualized pancreas unremarkable, tail obscured by bowel gas. 3. Mild hepatic steatosis. Liver normal in size and smooth in contour. Medications Medications Current Medications Generic Name Dose Route Start Last Admin Trade Name Freq PRN Reason Stop Dose Admin Acetaminophen 650 mg 05/11/21 19:22 05/16/21 11:42 Acetaminophen 325 Mg Tablet PO 650 mg Q6H PRN Administration Headache/Pain Mild Scale (1-3) Al Hydroxide/Mg Hydroxide 30 ml 05/11/21 19:22 05/19/21 21:59 Magnesium Hydrox/Alum Hydrox 30 Ml Oral.Susp PO 30 ml Q6H PRN Administration Heartburn/Nausea Albuterol Sulfate 2 puff 05/12/21 08:21 05/14/21 08:13 Albuterol Sulfate 90 Mcg 8 Gm Inhaler INHALE 2 puff RQ4H PRN Administration Shortness of Breath Amlodipine Besylate 10 mg 05/12/21 21:00 05/19/21 20:03 Amlodipine Besylate 10 Mg Tablet PO 10 mg BEDTIME ÁLVARO Administration Protocol Dicyclomine HCl 40 mg 05/12/21 11:30 05/20/21 11:41 Dicyclomine Hcl 10 Mg Capsule PO 40 mg QIDACHS ÁLVARO Administration Famotidine 40 mg 05/11/21 21:15 05/20/21 08:54 Famotidine 20 Mg Tablet PO 40 mg BID ÁLVARO Administration Fluticasone/Vilanterol 1 puff 05/12/21 08:00 05/20/21 08:55 Fluticasone/Vilanterol 100/25 Blst.W.Dev INHALE 1 puff RDAILY ÁLVARO Administration Gabapentin 200 mg 05/20/21 15:00 Gabapentin 100 Mg Capsule PO TID ÁLVARO Lorazepam 1 mg 05/16/21 09:14 05/20/21 11:41 Lorazepam 1 Mg Tablet PO 1 mg BID PRN Administration Anxiety Lorazepam 0.5 mg 05/16/21 09:39 05/20/21 09:06 Lorazepam 0.5 Mg Tablet PO 0.5 mg TID ÁLVARO Administration Magnesium Hydroxide 30 ml 05/11/21 19:22 Milk Of Magnesia 30 Ml Oral.Susp PO DAILY PRN Constipation Nortriptyline HCl 50 mg 05/17/21 21:00 05/19/21 20:02 Nortriptyline Hcl 25 Mg Capsule PO 50 mg BEDTIME ÁLVARO Administration Oxycodone HCl 5 mg 05/11/21 16:46 05/12/21 09:12 Oxycodone Hcl Immed Release 5 Mg Tablet PO 5 mg Q6H PRN Administration Pain, Moderate (Pain Scale 4-6 Polyethylene Glycol 17 gm 05/12/21 09:00 05/20/21 08:55 Polyethylene Glycol 3350 17 Gm Powd.Pack PO 17 gm DAILY ÁLVARO Administration Simethicone 80 mg 05/12/21 11:30 05/20/21 11:41 Simethicone 80 Mg Tab.Chew PO 80 mg TIDAC ÁLVARO Administration Tiotropium [place] 1 puff 05/12/21 08:00 05/20/21 08:55 Tiotropium [place] 18 Mcg Cap.W.Dev INHALE 1 puff RDAILY ÁLVARO Administration Trazodone HCl 50 mg 05/11/21 19:22 Trazodone Hcl 50 Mg Tablet PO BEDTIME PRN Insomnia Allergies Allergies Allergy/AdvReac Type Severity Reaction Status Date / Time lamotrigine [From LAMICTAL] Allergy Severe agitation Verified 05/11/21 13:07 and anxiety with titration codeine [CODEINE] Allergy Intermediate INSOMNIA Verified 05/11/21 13:07 Penicillins [PENICILLINS] Allergy Intermediate RASH Verified 05/11/21 13:07 epinephrine [EPINEPHRINE] AdvReac Intermediate Hypertensio Verified 05/11/21 13:07 n escitalopram [From LEXAPRO] AdvReac Intermediate NIGHTMARES Verified 05/11/21 13:07 sertraline [From ZOLOFT] AdvReac Intermediate NIGHTMARES Verified 05/11/21 13:07 sulfamethoxazole AdvReac Intermediate STOMACH Verified 05/11/21 13:07 [From BACTRIM] UPSET Assessment & Plan Assessment & Plan (1) Major depressive disorder, recurrent episode, severe with anxious distress: Status: Acute Code(s): F33.2 - Major depressive disorder, recurrent severe without psychotic features (2) Chronic abdominal pain: Status: Acute Code(s): R10.9 - Unspecified abdominal pain; G89.29 - Other chronic pain (3) Anxiety: Status: Acute Code(s): F41.9 - Anxiety disorder, unspecified (4) COPD (chronic obstructive pulmonary disease): Qualifiers: COPD type: unspecified COPD Qualified Code(s): J44.9 - Chronic obstructive pulmonary disease, unspecified Status: Acute Code(s): J44.9 - Chronic obstructive pulmonary disease, unspecified (5) Stented coronary artery: Status: Acute Code(s): Z95.5 - Presence of coronary angioplasty implant and graft Assessment and Plan: Patient depressed ruminating anxious overwhelmed internally preoccupied nortriptyline level pending Increase gabapentin back to 300 mg t.i.d. patient ruminating pacing Greater than 50% of the session was spent on counseling and/or coordination of care Reason for contiued inpatient stay Substantial Risk for: harm to self, inability to function and rapid decompensation
[2021-05-20] MEDS: Gabapentin 100 MG CAPSULE 200 MG PO ×2 (14:01→20:33)
[2021-05-20 20:20] VITALS: BP 131/74; PULSE 95; RESP 20; TEMP 36.3; O2SAT 98
[2021-05-20 20:32] VITALS: BP 131/74; PULSE 95
[2021-05-20] MEDS: amLODIPine Besylate 10 MG TABLET PO (20:32)
[2021-05-20] MEDS: Nortriptyline HCl 25 MG CAPSULE 50 MG PO (20:33)
[2021-05-21] MEDS: Simethicone 80 MG TAB.CHEW PO ×3 (07:45→16:04)
[2021-05-21] MEDS: Famotidine 20 MG TABLET 40 MG PO ×2 (07:45→19:42)
[2021-05-21] MEDS: Dicyclomine HCl 10 MG CAPSULE 40 MG PO ×4 (07:45→19:42)
[2021-05-21 08:33] VITALS: BP 120/64; PULSE 99; RESP 18; TEMP 36.6; O2SAT 97
[2021-05-21] MEDS: polyethylene glycoL 3350 17 GM POWD.PACK PO (08:36)
[2021-05-21] MEDS: Gabapentin 100 MG CAPSULE 200 MG PO ×3 (08:36→19:42)
[2021-05-21] MEDS: Fluticasone/Vilanterol 100/25 BLST.W.DEV 1 PUFF INHALE (08:38)
[2021-05-21] MEDS: LORazepam 1 MG TABLET PO ×2 (13:26→19:50)
[2021-05-21] MEDS: Albuterol Sulfate 90 MCG 8 GM INHALER 2 PUFF INHALE (17:42)
[2021-05-21 18:43] VITALS: BP 148/79; PULSE 104; RESP 20; TEMP 36.4; O2SAT 97
[2021-05-21] MEDS: amLODIPine Besylate 10 MG TABLET PO (19:42)
[2021-05-21] MEDS: Nortriptyline HCl 25 MG CAPSULE 50 MG PO (19:42)
--- NOTE | 2021-05-21 22:41 | P.PNPSI_ITS ---
Subjective Subjective Date of Service: 05/21/21 Reason For Visit: SI Interim History: hopeless helpless depressed ruminating preoccupied Medication Compliance: Yes Side effects from medications: Yes (mild sedation ) Attending Groups: Intermittent Review of Systems IBS Mental Status Exam Mental Status Exam Patient Appearance: Well Grooomed Patient Orientation: Person, Place, Time and Situation Level of Consciousness: Awake Patient Behavior: Cooperative Mood Description: Depressed, Anxious and Apprehensive Affect Description: Constricted and Depressed Patient Cognition Impaired: No Ability to Follow Directions: Good Speech Pattern: Clear Memory Description: Episodic Impaired Hallucinations: None Delusions: Not Present Thought Process: Slowed Thinking Thought Content: positive for Obsessional Thoughts, positive for Circumstantial and positive for Suicidal Ideation (passive si ) Depressive Symptoms: Difficulty Sleeping and Changes in Appetite Judgement: Fair Judgement and Insight: Patient anxious ruminating hopeless helpless despondent feeling worse Diagnostics Vital Signs (24Hr): Vital Signs - 24 hr 05/21/21 08:33 Temperature 97.9 F Pulse Rate 99 Respiratory Rate 18 Blood Pressure 120/64 Pulse Oximetry 97 Body Mass Index 28.3 Labs Results: 05/12/21 07:58 05/12/21 07:58 Imaging Radiology Impressions: ITS Impressions Abdomen Ultrasound 05/19/21 08:25 IMPRESSION: 1. Prior cholecystectomy. No biliary ductal dilatation. No choledocholithiasis. 2. Visualized pancreas unremarkable, tail obscured by bowel gas. 3. Mild hepatic steatosis. Liver normal in size and smooth in contour. Medications Medications Current Medications Generic Name Dose Route Start Last Admin Trade Name Freq PRN Reason Stop Dose Admin Acetaminophen 650 mg 05/11/21 19:22 05/16/21 11:42 Acetaminophen 325 Mg Tablet PO 650 mg Q6H PRN Administration Headache/Pain Mild Scale (1-3) Al Hydroxide/Mg Hydroxide 30 ml 05/11/21 19:22 05/19/21 21:59 Magnesium Hydrox/Alum Hydrox 30 Ml Oral.Susp PO 30 ml Q6H PRN Administration Heartburn/Nausea Albuterol Sulfate 2 puff 05/12/21 08:21 05/21/21 17:42 Albuterol Sulfate 90 Mcg 8 Gm Inhaler INHALE 2 puff RQ4H PRN Administration Shortness of Breath Amlodipine Besylate 10 mg 05/12/21 21:00 05/21/21 19:42 Amlodipine Besylate 10 Mg Tablet PO 10 mg BEDTIME ÁLVARO Administration Protocol Dicyclomine HCl 40 mg 05/12/21 11:30 05/21/21 19:42 Dicyclomine Hcl 10 Mg Capsule PO 40 mg QIDACHS ÁLVARO Administration Famotidine 40 mg 05/11/21 21:15 05/21/21 19:42 Famotidine 20 Mg Tablet PO 40 mg BID ÁLVARO Administration Fluticasone/Vilanterol 1 puff 05/12/21 08:00 05/21/21 08:38 Fluticasone/Vilanterol 100/25 Blst.W.Dev INHALE 1 puff RDAILY ÁLVARO Administration Gabapentin 200 mg 05/20/21 15:00 05/21/21 19:42 Gabapentin 100 Mg Capsule PO 200 mg TID ÁLVARO Administration Lorazepam 1 mg 05/16/21 09:14 05/21/21 19:50 Lorazepam 1 Mg Tablet PO 1 mg BID PRN Administration Anxiety Lorazepam 0.5 mg 05/16/21 09:39 05/21/21 19:50 Lorazepam 0.5 Mg Tablet PO Not Given TID ÁLVARO Magnesium Hydroxide 30 ml 05/11/21 19:22 Milk Of Magnesia 30 Ml Oral.Susp PO DAILY PRN Constipation Nortriptyline HCl 50 mg 05/17/21 21:00 05/21/21 19:42 Nortriptyline Hcl 25 Mg Capsule PO 50 mg BEDTIME ÁLVARO Administration Polyethylene Glycol 17 gm 05/12/21 09:00 05/21/21 08:36 Polyethylene Glycol 3350 17 Gm Powd.Pack PO 17 gm DAILY ÁLVARO Administration Simethicone 80 mg 05/12/21 11:30 05/21/21 16:04 Simethicone 80 Mg Tab.Chew PO 80 mg TIDAC ÁLVARO Administration Tiotropium [place] 1 puff 05/12/21 08:00 05/21/21 08:38 Tiotropium [place] 18 Mcg Cap.W.Dev INHALE 1 puff RDAILY ÁLVARO Administration Trazodone HCl 50 mg 05/11/21 19:22 Trazodone Hcl 50 Mg Tablet PO BEDTIME PRN Insomnia Allergies Allergies Allergy/AdvReac Type Severity Reaction Status Date / Time lamotrigine [From LAMICTAL] Allergy Severe agitation Verified 05/11/21 13:07 and anxiety with titration codeine [CODEINE] Allergy Intermediate INSOMNIA Verified 05/11/21 13:07 Penicillins [PENICILLINS] Allergy Intermediate RASH Verified 05/11/21 13:07 epinephrine [EPINEPHRINE] AdvReac Intermediate Hypertensio Verified 05/11/21 13:07 n escitalopram [From LEXAPRO] AdvReac Intermediate NIGHTMARES Verified 05/11/21 13:07 sertraline [From ZOLOFT] AdvReac Intermediate NIGHTMARES Verified 05/11/21 13:07 sulfamethoxazole AdvReac Intermediate STOMACH Verified 05/11/21 13:07 [From BACTRIM] UPSET Assessment & Plan Assessment & Plan (1) Major depressive disorder, recurrent episode, severe with anxious distress: Status: Acute Code(s): F33.2 - Major depressive disorder, recurrent severe without psychotic features (2) Chronic abdominal pain: Status: Acute Code(s): R10.9 - Unspecified abdominal pain; G89.29 - Other chronic pain (3) Anxiety: Status: Acute Code(s): F41.9 - Anxiety disorder, unspecified (4) COPD (chronic obstructive pulmonary disease): Qualifiers: COPD type: unspecified COPD Qualified Code(s): J44.9 - Chronic obstructive pulmonary disease, unspecified Status: Acute Code(s): J44.9 - Chronic obstructive pulmonary disease, unspecified (5) Stented coronary artery: Status: Acute Code(s): Z95.5 - Presence of coronary angioplasty implant and graft Assessment and Plan: Patient depressed ruminating anxious overwhelmed internally preoccupied nortriptyline level pending monitor response to gabapentin 300 mg t.i.d. patient ruminating pacing obsessional somatic concerns Greater than 50% of the session was spent on counseling and/or coordination of care Patient educated on: diagnosis, medication risk/benefits and therapeutic strategies Informed Consent: further education needed Reason for contiued inpatient stay Substantial Risk for: harm to self, inability to function and rapid decompensation
[2021-05-22 08:00] VITALS: BP 108/70; PULSE 94; TEMP 36.3; O2SAT 98
[2021-05-22] MEDS: Dicyclomine HCl 10 MG CAPSULE 40 MG PO ×4 (08:06→20:41)
[2021-05-22] MEDS: Simethicone 80 MG TAB.CHEW PO ×3 (08:06→17:14)
[2021-05-22] MEDS: Gabapentin 100 MG CAPSULE 200 MG PO ×3 (08:47→20:41)
[2021-05-22] MEDS: polyethylene glycoL 3350 17 GM POWD.PACK PO (08:47)
[2021-05-22] MEDS: Fluticasone/Vilanterol 100/25 BLST.W.DEV 1 PUFF INHALE (08:47)
[2021-05-22] MEDS: Famotidine 20 MG TABLET 40 MG PO ×2 (08:47→20:42)
[2021-05-22] MEDS: LORazepam 0.5 MG TABLET PO ×3 (08:48→21:47)
--- NOTE | 2021-05-22 11:36 | P.PNPSI_ITS ---
Subjective Subjective Date of Service: 05/22/21 Reason For Visit: SI Subjective Notes: Conditional Voluntary Guardianship: No Medical Problems Affecting Mental Status: Yes (IBS triggering anxiety depression hopelessness ) Interim History: Pt is a 71 yo male Patient seen case reviewed in treatment team. Patient remains anxious and ruminating difficulty being social. He is obsessional about whether his improvement with IBS will continue and we continue to encourage stress tolerance techniques. He remains depressed ruminating but somewhat improved and currently he is tolerating gabapentin 300 t.i.d. along with nortriptyline. Medication Compliance: Yes Side effects from medications: Yes (Mild sedation) Attending Groups: Intermittent Mental Status Exam Mental Status Exam Patient Appearance: Well Grooomed Patient Orientation: Person, Place, Time and Situation Level of Consciousness: Awake Patient Behavior: Cooperative Mood Description: Depressed, Anxious and Apprehensive Affect Description: Constricted and Depressed Patient Cognition Impaired: No Ability to Follow Directions: Good Speech Pattern: Clear Memory Description: Episodic Impaired Hallucinations: None Delusions: Not Present Thought Process: Distracted, Rumination and Slowed Thinking Thought Content: positive for Obsessional Thoughts, positive for Circumstantial, negative for Suicidal Ideation (passive si ) or negative for Homicidal Ideation Depressive Symptoms: Increased Anxiety, Difficulty Sleeping, Changes in Appetite and Loss of Int. in Activity Judgement: Fair Judgement and Insight: Patient anxious ruminating hopeless helpless despondent feeling worse Diagnostics Vital Signs (24Hr): Vital Signs - 24 hr 05/21/21 18:43 05/22/21 08:00 Temperature 97.6 F 97.4 F Pulse Rate 104 H 94 Respiratory Rate 20 Blood Pressure 148/79 H 108/70 Pulse Oximetry 97 98 Body Mass Index 28.3 Labs Results: 05/12/21 07:58 05/12/21 07:58 Imaging Radiology Impressions: ITS Impressions Abdomen Ultrasound 05/19/21 08:25 IMPRESSION: 1. Prior cholecystectomy. No biliary ductal dilatation. No choledocholithiasis. 2. Visualized pancreas unremarkable, tail obscured by bowel gas. 3. Mild hepatic steatosis. Liver normal in size and smooth in contour. Medications Medications Current Medications Generic Name Dose Route Start Last Admin Trade Name Freq PRN Reason Stop Dose Admin Acetaminophen 650 mg 05/11/21 19:22 05/16/21 11:42 Acetaminophen 325 Mg Tablet PO 650 mg Q6H PRN Administration Headache/Pain Mild Scale (1-3) Al Hydroxide/Mg Hydroxide 30 ml 05/11/21 19:22 05/19/21 21:59 Magnesium Hydrox/Alum Hydrox 30 Ml Oral.Susp PO 30 ml Q6H PRN Administration Heartburn/Nausea Albuterol Sulfate 2 puff 05/12/21 08:21 05/21/21 17:42 Albuterol Sulfate 90 Mcg 8 Gm Inhaler INHALE 2 puff RQ4H PRN Administration Shortness of Breath Amlodipine Besylate 10 mg 05/12/21 21:00 05/21/21 19:42 Amlodipine Besylate 10 Mg Tablet PO 10 mg BEDTIME ÁLVARO Administration Protocol Dicyclomine HCl 40 mg 05/12/21 11:30 05/22/21 11:26 Dicyclomine Hcl 10 Mg Capsule PO 40 mg QIDACHS ÁLVARO Administration Famotidine 40 mg 05/11/21 21:15 05/22/21 08:47 Famotidine 20 Mg Tablet PO 40 mg BID ÁLVARO Administration Fluticasone/Vilanter[place] 1 puff 05/12/21 08:00 05/22/21 08:47 Fluticasone/Vilanterol 100/25 Blst.W.Dev INHALE 1 puff RDAILY ÁLVARO Administration Gabapentin 200 mg 05/20/21 15:00 05/22/21 08:47 Gabapentin 100 Mg Capsule PO 200 mg TID ÁLVARO Administration Lorazepam 1 mg 05/16/21 09:14 05/21/21 19:50 Lorazepam 1 Mg Tablet PO 1 mg BID PRN Administration Anxiety Lorazepam 0.5 mg 05/16/21 09:39 05/22/21 08:48 Lorazepam 0.5 Mg Tablet PO 0.5 mg TID ÁLVARO Administration Magnesium Hydroxide 30 ml 05/11/21 19:22 Milk Of Magnesia 30 Ml Oral.Susp PO DAILY PRN Constipation Nortriptyline HCl 50 mg 05/17/21 21:00 05/21/21 19:42 Nortriptyline Hcl 25 Mg Capsule PO 50 mg BEDTIME ÁLVARO Administration Polyethylene Glycol 17 gm 05/12/21 09:00 05/22/21 08:47 Polyethylene Glycol 3350 17 Gm Powd.Pack PO 17 gm DAILY ÁLVARO Administration Simethicone 80 mg 05/12/21 11:30 05/22/21 11:26 Simethicone 80 Mg Tab.Chew PO 80 mg TIDAC ÁLVARO Administration Tiotropium [place] 1 puff 05/12/21 08:00 05/22/21 08:47 Tiotropium [place] 18 Mcg Cap.W.Dev INHALE 1 puff RDAILY ÁLVARO Administration Trazodone HCl 50 mg 05/11/21 19:22 Trazodone Hcl 50 Mg Tablet PO BEDTIME PRN Insomnia Allergies Allergies Allergy/AdvReac Type Severity Reaction Status Date / Time lamotrigine [From LAMICTAL] Allergy Severe agitation Verified 05/11/21 13:07 and anxiety with titration codeine [CODEINE] Allergy Intermediate INSOMNIA Verified 05/11/21 13:07 Penicillins [PENICILLINS] Allergy Intermediate RASH Verified 05/11/21 13:07 epinephrine [EPINEPHRINE] AdvReac Intermediate Hypertensio Verified 05/11/21 13:07 n escitalopram [From LEXAPRO] AdvReac Intermediate NIGHTMARES Verified 05/11/21 13:07 sertraline [From ZOLOFT] AdvReac Intermediate NIGHTMARES Verified 05/11/21 13:07 sulfamethoxazole AdvReac Intermediate STOMACH Verified 05/11/21 13:07 [From BACTRIM] UPSET Assessment & Plan Assessment & Plan (1) Major depressive disorder, recurrent episode, severe with anxious distress: Status: Acute Code(s): F33.2 - Major depressive disorder, recurrent severe without psychotic features (2) Chronic abdominal pain: Status: Acute Code(s): R10.9 - Unspecified abdominal pain; G89.29 - Other chronic pain (3) Anxiety: Status: Acute Code(s): F41.9 - Anxiety disorder, unspecified (4) COPD (chronic obstructive pulmonary disease): Qualifiers: COPD type: unspecified COPD Qualified Code(s): J44.9 - Chronic obstructive pulmonary disease, unspecified Status: Acute Code(s): J44.9 - Chronic obstructive pulmonary disease, unspecified (5) Stented coronary artery: Status: Acute Code(s): Z95.5 - Presence of coronary angioplasty implant and graft Assessment and Plan: Patient depressed ruminating anxious overwhelmed internally preoccupied nortriptyline level pending monitor response to gabapentin 300 mg t.i.d. encourage relaxation techniques stress management techniques Extensive discussion regarding alternative ways to manage anxiety and preoccupation and physical symptoms in the body continue nortriptyline gabapentin if stable discharge tomorrow denying current active self-harming thoughts mild oral facial dyskinesia noted Greater than 50% of the session was spent on counseling and/or coordination of care Reason for contiued inpatient stay Substantial Risk for: harm to self, rapid decompensation and med/psych decompensation
[2021-05-22] MEDS: LORazepam 1 MG TABLET PO (12:02)
[2021-05-22 18:00] VITALS: BP 102/69; PULSE 102; RESP 18; TEMP 36.4; O2SAT 99
[2021-05-22] MEDS: Nortriptyline HCl 25 MG CAPSULE 50 MG PO (20:41)
[2021-05-22 20:42] VITALS: BP 102/69; PULSE 102
[2021-05-22] MEDS: amLODIPine Besylate 10 MG TABLET PO (20:42)
[2021-05-23] MEDS: Dicyclomine HCl 10 MG CAPSULE 40 MG PO ×2 (07:53→11:11)
[2021-05-23] MEDS: Simethicone 80 MG TAB.CHEW PO ×2 (07:53→11:11)
[2021-05-23] MEDS: Gabapentin 100 MG CAPSULE 200 MG PO (08:40)
[2021-05-23] MEDS: LORazepam 0.5 MG TABLET PO (08:40)
[2021-05-23] MEDS: Famotidine 20 MG TABLET 40 MG PO (08:40)
[2021-05-23] MEDS: Fluticasone/Vilanterol 100/25 BLST.W.DEV 1 PUFF INHALE (08:43)
[2021-05-23 09:24] VITALS: BP 128/74; PULSE 60; RESP 16; TEMP 36.6; O2SAT 97
[2021-05-23] MEDS: polyethylene glycoL 3350 17 GM POWD.PACK PO (09:49)
--- NOTE | 2021-05-23 13:54 | P.DS_ITS ---
DS: Providers Provider Date of Service: 05/23/21 Date of admission: 05/11/21 19:21 Date of discharge: 05/23/21 Primary care physician: Jacob Loza MD Admitting clinician: Kit Smith Attending physician on admission: Lobito Perez Consults: 05/15/21 13:11 Consult to Gastroenterology Routine Consulting Provider: Aime May Reason for consultation: Hx of IBS, on no active treatment yet, very depressed Has provider been notified: No Attending physician on discharge: Lobito Perez Discharging clinician: Nacho Peña DS: Diagnosis Discharge Diagnosis (1) Major depressive disorder, recurrent episode, severe with anxious distress: Status: Acute (2) Generalized anxiety disorder: Status: Acute (3) COPD (chronic obstructive pulmonary disease): Status: Acute (4) Chronic abdominal pain: Status: Resolved (5) Stented coronary artery: (6) CAD (coronary artery disease): Status: Acute (7) IBS (irritable bowel syndrome): Status: Acute (8) Hypertension: Status: Acute (9) 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: Status: Acute DS: Medications Discharge Medications Home Medications: Home Medications Medication Instructions Recorded Confirmed famotidine 40 mg tablet 40 mg PO BID 02/10/21 05/11/21 fluticasone fur. 200 mcg-umeclid 1 puff PO DAILY 05/11/21 05/11/21 62.5 mcg-vilant 25 mcg inhalat.powder (Trelegy Ellipta) polyethylene glycol 3350 1 packet PO DAILY 05/11/21 05/11/21 simethicone 80 mg chewable tablet 80 - 160 mg PO TIDAC 05/11/21 05/11/21 Previous Rx's Medication Instructions Recorded albuterol sulfate 90 mcg/actuation 2 inh INHALATION Q4-6H PRN #1 ea 07/27/20 breath activated powder inhaler (ProAir RespiClick) acetaminophen 325 mg tablet 650 mg PO Q6H PRN #0 tab 05/12/21 aluminum-magnesium hydroxide 200 30 ml PO Q6H PRN #0 ml 05/12/21 mg-200 mg/5 mL oral suspension (MAG-AL) dicyclomine 10 mg capsule 40 mg PO QIDACHS #0 cap 05/12/21 famotidine 20 mg tablet 40 mg PO BID #0 tab 05/12/21 magnesium hydroxide 400 mg/5 mL 30 ml PO DAILY PRN #0 ml 05/12/21 oral suspension (Milk of Magnesia) oxycodone 5 mg tablet 5 mg PO Q6H PRN #0 tab 05/12/21 simethicone 80 mg chewable tablet 80 mg PO TIDAC #0 tab 05/12/21 (Gas Relief (simethicone)) trazodone 50 mg tablet 50 mg PO BEDTIME PRN #0 tab 05/12/21 amlodipine 10 mg tablet 1 tab PO DAILY 30 Days #30 tab 05/23/21 gabapentin 100 mg capsule 200 mg PO TID 30 Days #180 cap 05/23/21 lorazepam 0.5 mg tablet 0.5 mg PO TID 30 Days #180 tab 05/23/21 lorazepam 1 mg tablet 1 tab PO BID PRN 30 Days #60 tab 05/23/21 nortriptyline 50 mg capsule 50 mg PO BEDTIME #30 cap 05/23/21 Mental Status Exam Mental Status Exam Patient Appearance: Well Grooomed Patient Orientation: Person, Place, Time and Situation Level of Consciousness: Awake Patient Behavior: Cooperative Mood Description: Depressed (but improved), Anxious and Apprehensive Affect Description: Constricted and Depressed Patient Cognition Impaired: No Ability to Follow Directions: Good Speech Pattern: Clear Memory Description: Episodic Impaired Hallucinations: None Delusions: Not Present Thought Process: Distracted, Rumination and Slowed Thinking Thought Content: positive for Intact, positive for Obsessional Thoughts, negative for Suicidal Ideation (passive si ) or negative for Homicidal Ideation Depressive Symptoms: Increased Anxiety, Difficulty Sleeping, Changes in Appetite and Loss of Int. in Activity Judgement: Fair Judgement and Insight: Patient feeling better with abdominal discomfort future oriented continues to tend to ruminate difficulty with strategies to help with anxiety and thoughts Data Data Completed and Pending Completed studies during hospitalization [Text1]: 05/19/21 06:43 Nortriptyline Pending Imaging Diagnostic Imaging Impressions Abdomen Ultrasound 05/19/21 08:25 IMPRESSION: 1. Prior cholecystectomy. No biliary ductal dilatation. No choledocholithiasis. 2. Visualized pancreas unremarkable, tail obscured by bowel gas. 3. Mild hepatic steatosis. Liver normal in size and smooth in contour. DS: Summary Hospital Course Hospital Course: [facility] [place] [address] Psychiatry Admission Note (In)Signed Patient: Jameel Cameron RMR#: [id number]: 2Acct:[id number]/Sex: 71 / MLoc:[id number]: Sasha Hopkins NP cc: ~ HPI Chief Complaint: SI Sources of Information: patient interviewed, chart reviewed and crisis/core team assessment reviewed HPI Subjective Notes: Persaud Warning and Conditional Voluntary Narrative: Patient is a 71-year-old male with history of depression and anxiety, past trials of ECT and multiple medical comorbidities, who was recently discharged from [facility] inpatient unit this pastJun2020, who presents for depression and anxiety and complaining of IBS. Patient gives a little bit of a confusing recent history. He said that when he left the unit last February he was in a good mood and he still in a good mood. He overall denies depression. He says he got brief, short lived bout of SI but it was passive and it resolved. He says however that his hospitality house supervisor put him on prednisone and Zithromax a month or so ago and that he ?got weird on prednisone ?and that he developed IBS on Zithromax. He says that the IBS is her hurting his stomach and probably making him depressed. He said he would not be depressed at off a were not for pain in his abdomen. Patient said he recently saw a GI who did add dicyclomine but said that patient needs psychiatry, not further GI workup. Since patient reiterated that he has not been depressed, marketing underwriter asked why he presented to the psychiatric unit. Patient says he needs to figure out the connection between his cognitive thinking and his abdominal pain. He says he is here to undergo go some cognitive restructuring... Financial Supervisor explained that this is much more of an outpatient treatment that is handled in outpatient therapy, to which patient seemed surprised to hear. He did say that he has not been able to do anything or go anywhere but he offers of mixed etiology for this and is not sure if it is depression or abdominal pain. then said that he needs a liver scan because his liver enzymes were up, however dating back to 2019, marketing underwriter could not find evidence of elevated liver enzymes except for just few days ago when they were very mildly elevated and have since resolved. Crisis note reports that patient has been depressed and having panic attacks because and wake up in the middle of the night. Patient currently denies any SI. He asks for his dicyclomine to be increased to 40 mg and for his home medication of simethicone to be added, to which marketing underwriter complies. Past Psychiatric History: History of good response to ECT past history of panic disorder has not been able to stabilize now for number of years despite outpatient therapy counseling [facility] ongoing treatment with a nurse practitioner Trina iverson Medical Evaluation Reviewed: Yes [facility] Medical History Abnormal nuclear stress test CAD (coronary artery disease) Chronic respiratory failure COPD (chronic obstructive pulmonary disease) Generalized anxiety disorder HLD (hyperlipidemia) Major depressive disorder, recurrent episode, severe with anxious distress Pneumonitis Pre-op evaluation Preop cardiovascular exam Smoking Surgical History Stented coronary artery Social History: 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 He has a supportive family including sister and mother Trauma History: no history of sexual or physical trauma Diagnostics Vital Signs (24Hr):Vital Signs - 24 hr 05/11/21 14:14 05/12/21 06:00 Temperature 95.9 F L 97.2 F Pulse Rate 115 H 86 Respiratory Rate 18 16 Blood Pressure 138/87 91/56 L Pulse Oximetry 97 96 Body Mass Index 23.4 Labs Results: 05/12/21 07:58 document embedded image 05/12/21 07:58 document embedded image Labs:Laboratory Results - last 48 hr 05/11/21 05/11/21 05/11/21 15:17 15:17 16:24 WBC RBC Hgb Hct MCV MCH MCHC RDW Plt Count MPV Immature Gran % (Auto) Neut % (Auto) Lymph % (Auto) [place] % (Auto) Eos % (Auto) Baso % (Auto) Lymph # (Auto) [place] # (Auto) Eos # (Auto) Baso # (Auto) Abs Immat Gran (auto) Absolute Neuts (auto) Absolute Nucleated RBC Nucleated RBC % (auto) Sodium Potassium Chloride Carbon Dioxide Anion Gap BUN Creatinine Estim Creat Clear Calc Estimated GFR Random Glucose Fasting Glucose Calcium Magnesium Total Bilirubin AST ALT Alkaline Phosphatase Total Protein Albumin Lipase TSH Free T4 Urine Color YELLOW Urine Appearance CLEAR Urine pH 6.0 Ur Specific [place] <= 1.005 Urine Protein NEG Urine Glucose (UA) NEG Urine Ketones NEG Urine Blood NEG Urine Nitrite NEG Ur Leukocyte Esterase NEG Urine RBC 0 Urine WBC 0 Ur Squamous Epith Cells NONE Urine Bacteria NONE Urine Opiates Screen Not Detected Urine Fentanyl Screen Not Detected Ur Barbiturates Screen Not Detected Ur Phencyclidine Scrn Not Detected Ur Amphetamines Screen Not Detected U Benzodiazepines Scrn Not Detected Urine Cocaine Screen Not Detected U Marijuana (THC) Screen Not Detected Ethyl Alcohol COVID-19 (MARRY) Negative COVID-19 Clin Com See Note 05/11/21 05/11/21 05/11/21 19:36 19:36 19:36 WBC 9.9 RBC 5.64 Hgb 17.3 Hct 51.0 MCV 90.4 MCH 30.7 MCHC 33.9 RDW 13.3 Plt Count 276 MPV 8.5 L Immature Gran % (Auto) 0.3 Neut % (Auto) 67.7 Lymph % (Auto) 25.6 [place] % (Auto) 5.3 Eos % (Auto) 0.8 Baso % (Auto) 0.3 Lymph # (Auto) 2.5 [place] # (Auto) 0.5 Eos # (Auto) 0.1 Baso # (Auto) 0.0 Abs Immat Gran (auto) 0.03 Absolute Neuts (auto) 6.7 Absolute Nucleated RBC 0.000 Nucleated RBC % (auto) 0.0 Sodium 140 Potassium 3.8 Chloride 101 Carbon Dioxide 26 Anion Gap 17 BUN 12 Creatinine 1.07 Estim Creat Clear Calc 52.4 Estimated GFR > 60 Random Glucose 114 Fasting Glucose Calcium 10.2 Magnesium 2.7 H Total Bilirubin 0.5 AST 24 ALT 47 H Alkaline Phosphatase 69 Total Protein 8.0 Albumin 5.0 Lipase 30 TSH Free T4 Urine Color Urine Appearance Urine pH Ur Specific [place] Urine Protein Urine Glucose (UA) Urine Ketones Urine Blood Urine Nitrite Ur Leukocyte Esterase Urine RBC Urine WBC Ur Squamous Epith Cells Urine Bacteria Urine Opiates Screen Urine Fentanyl Screen Ur Barbiturates Screen Ur Phencyclidine Scrn Ur Amphetamines Screen U Benzodiazepines Scrn Urine Cocaine Screen U Marijuana (THC) Screen Ethyl Alcohol COVID-19 (MARRY) COVID-19 Clin Com 05/11/21 05/12/21 05/12/21 19:36 07:58 07:58 WBC 6.6 RBC 4.91 Hgb 14.8 Hct 44.2 MCV 90.0 MCH 30.1 MCHC 33.5 RDW 13.4 Plt Count 286 MPV 8.7 L Immature Gran % (Auto) 0.3 Neut % (Auto) 54.8 Lymph % (Auto) 33.1 [place] % (Auto) 9.8 Eos % (Auto) 1.4 Baso % (Auto) 0.6 Lymph # (Auto) 2.2 [place] # (Auto) 0.6 Eos # (Auto) 0.1 Baso # (Auto) 0.0 Abs Immat Gran (auto) 0.02 Absolute Neuts (auto) 3.6 Absolute Nucleated RBC 0.000 Nucleated RBC % (auto) 0.0 Sodium 139 Potassium 4.8 D Chloride 104 Carbon Dioxide 25 Anion Gap 15 BUN 12 Creatinine 1.00 Estim Creat Clear Calc 56.1 Estimated GFR > 60 Random Glucose Fasting Glucose 100 H Calcium 9.4 D Magnesium Total Bilirubin 0.5 AST 21 ALT 40 Alkaline Phosphatase 57 Total Protein 6.6 Albumin 4.3 Lipase TSH 1.17 Free T4 1.16 Urine Color Urine Appearance Urine pH Ur Specific [place] Urine Protein Urine Glucose (UA) Urine Ketones Urine Blood Urine Nitrite Ur Leukocyte Esterase Urine RBC Urine WBC Ur Squamous Epith Cells Urine Bacteria Urine Opiates Screen Urine Fentanyl Screen Ur Barbiturates Screen Ur Phencyclidine Scrn Ur Amphetamines Screen U Benzodiazepines Scrn Urine Cocaine Screen U Marijuana (THC) Screen Ethyl Alcohol < 10 COVID-19 (MARRY) COVID-19 Clin Com Meds/Allergies Meds Home Medications Acetaminophen (Acetaminophen 325 Mg Tablet) 650 mg PO Q6H PRN PRN Reason: Headache/Pain Mild Scale (1-3) Al Hydroxide/Mg Hydroxide (Magnesium Hydrox/Alum Hydrox 30 Ml Oral.Susp) 30 ml PO Q6H PRN PRN Reason: Heartburn/Nausea Albuterol Sulfate (Albuterol Sulfate 90 Mcg 8 Gm Inhaler) 2 puff INHALE RQ4H PRN PRN Reason: Shortness of Breath Amlodipine Besylate (Amlodipine Besylate 10 Mg Tablet) 10 mg PO BEDTIME [facility]; Protocol Dicyclomine HCl (Dicyclomine Hcl 10 Mg Capsule) 40 mg PO QIDACHS [facility] Last Admin: 05/12/21 12:04 Dose: 40 mg Documented by: Famotidine (Famotidine 20 Mg Tablet) 40 mg PO BID [facility] Last Admin: 05/12/21 08:24 Dose: 40 mg Documented by: Fluticasone/Vilanterol (Fluticasone/Vilanterol 100/25 Blst.W.Dev) 1 puff INHALE RDAILY [facility] Last Admin: 05/12/21 08:28 Dose: 1 puff Documented by: Hydroxyzine HCl (Hydroxyzine Hcl 25 Mg Tablet) 25 mg PO Q6H PRN PRN Reason: Anxiety Lorazepam (Lorazepam 1 Mg Tablet) 1 mg PO TID PRN PRN Reason: anxiety Last Admin: 05/11/21 20:44 Dose: 1 mg Documented by: Lorazepam (Lorazepam 0.5 Mg Tablet) 0.5 mg PO Q6H PRN PRN Reason: anxiety Last Admin: 05/12/21 09:51 Dose: 0.5 mg Documented by: Magnesium Hydroxide (Milk Of Magnesia 30 Ml Oral.Susp) 30 ml PO DAILY PRN PRN Reason: Constipation Nortriptyline HCl (Nortriptyline Hcl 10 Mg Capsule) 10 mg PO BEDTIME [facility] Last Admin: 05/11/21 20:45 Dose: 10 mg Documented by: Oxycodone HCl (Oxycodone Hcl Immed Release 5 Mg Tablet) 5 mg PO Q6H PRN PRN Reason: Pain, Moderate (Pain Scale 4-6 Last Admin: 05/12/21 09:12 Dose: 5 mg Documented by: Polyethylene Glycol (Polyethylene Glycol 3350 17 Gm Powd.Pack) 17 gm PO DAILY [facility] Last Admin: 05/12/21 08:24 Dose: 17 gm Documented by: Quetiapine Fumarate (Quetiapine Fumarate 25 Mg Tablet) 12.5 mg PO BID [facility] Last Admin: 05/12/21 08:28 Dose: Not Given Documented by: Simethicone (Simethicone 80 Mg Tab.Chew) 80 mg PO TIDAC [facility] Last Admin: 05/12/21 12:04 Dose: 80 mg Documented by: Tiotropium [place] (Tiotropium [place] 18 Mcg Cap.W.Dev) 1 puff INHALE RDAILY [facility] Last Admin: 05/12/21 08:26 Dose: 1 puff Documented by: Trazodone HCl (Trazodone Hcl 50 Mg Tablet) 50 mg PO BEDTIME PRN PRN Reason: Insomnia Allergies Allergies Allergy/AdvReac Type Severity Reaction Status Date / Time lamotrigine [From LAMICTAL] Allergy Severe agitation Verified 05/11/21 13:07 and anxiety with titration codeine [CODEINE] Allergy Intermediate INSOMNIA Verified 05/11/21 13:07 Penicillins [PENICILLINS] Allergy Intermediate RASH Verified 05/11/21 13:07 epinephrine [EPINEPHRINE] AdvReac Intermediate Hypertensio Verified 05/11/21 13:07 n escitalopram [From LEXAPRO] AdvReac Intermediate NIGHTMARES Verified 05/11/21 13:07 sertraline [From ZOLOFT] AdvReac Intermediate NIGHTMARES Verified 05/11/21 13:07 sulfamethoxazole AdvReac Intermediate STOMACH Verified 05/11/21 13:07 [From BACTRIM] UPSET Mental Status Exam Mental Status Exam Narrative: Pt is alert and oriented; behavior is cooperative; patient is dressed in casual attire with adequate hygiene; mood is described as good but affect is anxious; eye contact appropriate; Speech is normal rate, volume and prosody and not pressured; no psychomotor agitation/retardation present; thought process is organized, linear, logical and goal directed. Thought content is on treatment for abdominal pain; otherwise TC relevant to pertinent topics and without any delusional content, paranoid ideations or grandiosity; denies any SI/HI. There is no evidence of perceptual disturbance. Patients insight and judgment appear impaired. Assessment & Plan Assessment & Plan (1) Major depressive disorder, recurrent episode, severe with anxious distress: Status: Acute Code(s): F33.2 - Major depressive disorder, recurrent severe without psychotic features (2) Chronic abdominal pain: Status: Acute Code(s): R10.9 - Unspecified abdominal pain; G89.29 - Other chronic pain (3) Anxiety: Status: Acute Code(s): F41.9 - Anxiety disorder, unspecified (4) COPD (chronic obstructive pulmonary disease): Status: Acute Qualifiers: COPD type: unspecified COPD Qualified Code(s): J44.9 - Chronic obstructive pulmonary disease, unspecified Code(s): J44.9 - Chronic obstructive pulmonary disease, unspecified (5) Stented coronary artery: Status: Acute Code(s): Z95.5 - Presence of coronary angioplasty implant and graft Assessment and Plan: Patient is a 71-year-old male with history of depression and anxiety, past trials of ECT and multiple medical comorbidities, who was recently discharged from [facility] unit this pastJun2020, who presents for depression and anxiety and complaining of IBS. Patient gives some conflicting report at 1stsaying he is not depressed but then saying he is depressed but only due to abdominal pain. Patient's problem list includes history of chronic abdominal pain though patient said this only started recently. Patient says that his GI specialist told him he does not need GI but needs psychiatric unit. Crisis note reports that patient has been severely depressed at home with an increased in anxiety. Will admit patient for further evaluation. Plan: Patient on CV Q 15 minutes checks Team discussion resulted in agreement that patient is to be transferred to Geriatric Unit, to which patient agrees Will defer to primary team on whether or not to consult GI Otherwise continue on current medications -dicyclomine raised to 40 mg -simethicone added t.i.d. before meals Patient educated on: diagnosis and therapeutic strategies Informed Consent: further education needed Reason for continued inpatient stay Substantial Risk for: med/psych decompensation Hospital course The patient was admitted under the care of Dr. Johnson Dick 0. Patient noted to have recurrence of depressive symptoms and anxiety. He did not wish to consider retreatment with ECT. The patient was quite ruminative and preoccupied with somatic symptoms mostly abdominal pain that was somewhat atypical and was thought eventually by GI to be irritable bowel. Patient had an unremarkable ultrasound. By history patient could be quite ambivalent regarding medication times going up on doses but then becoming preoccupied with potential side effects. Dr. blu mae did choose to increase nortriptyline as main treatment for depression and somatic symptoms bentyl had also been increased which she found quite helpful. Lorazepam was continued and gabapentin had been started for anxiety and also seemed to help with patient's somatic pain and preoccupation. Nortriptyline was increased to 50 mg and nortriptyline level was ordered but not available during the hospitalization. The patient did have some intermittent short-term memory and mild word-finding problems at times and he was warned regarding the interaction of multiple medications he was taking including Bentyl with nortriptyline lorazepam and gabapentin. Gabapentin was lowered to 200 t.i.d. prior to discharge the patient was warned that Bentyl which he did use for spasm could also contribute to cognitive and memory dysfunction. Prior to discharge the patient was strongly encouraged to use relaxation techniques challenges to negative cognitions and strongly urged ways to increase his structure and functioning as an outpatient as the patient's anxiety and ruminations tend to overcome him when he would be home often without structure. Patient did not wish to take antipsychotics he had concerns regarding tardive dyskinesia. Patient had failed prior treatment with TMS. Patient was future oriented somewhat anxious and mildly dysphoric but future oriented at time of discharge and he had significant improvement in his somatic symptoms. He was ag reeable to referral for outpatient psychiatric follow-up and psychotherapy. Patient had not previously been helped by referrals to [facility] type setting Status at Discharge Functional status at discharge: independent ambulation Time Spent with Patient Time attestation: Total time spent providing and/or coordinating discharge services: Time spent: Greater than 30 minutes Specific discharge activities: Reviewed for recommendations medication interactions treatment options Discharge Plan Discharge Patient Disposition: Home, Self-Care Discharge Diagnosis: major depression recurrent severe generalized anxiety disorder copd Referrals: Vika Restrepo [Other] - 05/31/21 2:00 pm (Appointment is telehealth appointment with medication provider for 05/31/21 from 2-3pm for evaluation and then a follow up medication management appointment is scheduled for 06/29/21 from 11:40am- 12pm. Both appointments are telehealth. ) Laurie Herrera [Other] - 05/24/21 1:00 pm (Your next therapy appointment (telehealth) with Laurie is 05/24/21 at 1:00pm) Jacob Loza MD [Primary Care Provider] - 1 Week Discharge Medications: New acetaminophen 325 mg Tablet 650 mg PO Q6H PRN (Reason: Headache/Pain Mild Scale (1-3)) Qty: 0 RF: 0 trazodone 50 mg Tablet 50 mg PO BEDTIME PRN (Reason: Insomnia) Qty: 0 RF: 0 famotidine 20 mg Tablet 40 mg PO BID Qty: 0 RF: 0 magnesium hydroxide [Milk of Magnesia] 400 mg/5 mL Suspension 30 ml PO DAILY PRN (Reason: Constipation) Qty: 0 RF: 0 dicyclomine 10 mg Capsule 40 mg PO QIDACHS Qty: 0 RF: 0 simethicone [Gas Relief (simethicone)] 80 mg Tablet,Chewable 80 mg PO TIDAC Qty: 0 RF: 0 oxycodone 5 mg Tablet 5 mg PO Q6H PRN (Reason: Pain, Moderate (Pain Scale 4-6) Qty: 0 RF: 0 MAG-AL 200-200 mg/5 mL Suspension 30 ml PO Q6H PRN (Reason: Heartburn/Nausea) Qty: 0 RF: 0 gabapentin 100 mg Capsule 200 mg PO TID 30 Days Qty: 180 RF: 0 nortriptyline 50 mg capsule 50 mg PO BEDTIME Qty: 30 RF: 0 Continued ProAir RespiClick 90 mcg/actuation aerosol powdr breath activated 2 inh inhalation Q4-6H PRN (Reason: Shortness Of Breath) Qty: 1 RF: 3 Trelegy Ellipta 200-62.5-25 mcg blister with device 1 puff PO DAILY RF: 0 polyethylene glycol 3350 1 packet PO DAILY RF: 0 simethicone 80 mg Tablet,Chewable 80 - 160 mg PO TIDAC RF: 0 amlodipine 10 mg tablet 1 tab PO DAILY 30 Days Qty: 30 RF: 0 famotidine 40 mg Tablet 40 mg PO BID RF: 0 Changed lorazepam 0.5 mg tablet 0.5 mg PO TID 30 Days Qty: 180 RF: 1 lorazepam 1 mg tablet 1 tab PO BID PRN (Reason: anxiety) 30 Days Qty: 60 RF: 0 Discontinued nortriptyline 10 mg capsule 1 cap PO BEDTIME RF: 0 quetiapine [Seroquel] 25 mg tablet 12.5 mg PO BID RF: 0 dicyclomine 10 mg capsule 30 mg PO QIDACHS RF: 0 Discharge Orders: Discharge Order (Routine); Ordered 05/23/21 Ordered By: Nacho Peña Diet: advance to usual diet Activity on Discharge: As tolerated Stand Alone Forms: Patient Portal Discharge page, Community Support Care Plan Goals: STABLE MOOD IMPROVED ABDOMINAL PAIN NO SELF HARMING THOUGHTS IMPROVED FUNCTION Health Concerns: COPD DEPRESSION ANXIETY ABDOMINAL PAIN Plan of Treatment: MEDICATION NORTRIPTYLINE GABAPENTIN LORAZEPAM THERAPY FOLLOW UP PCP AND DR CACERES [facility] COUNSELING PLEASE NOTE BENTYL CAN CAUSE CONFUSION ALTERED STATE SIDE EFFECT AT TIMES Assessment: IMPROVED MOOD AND IBS Discharge Date/Time: 05/23/21 13:55
[2021-05-25 09:00] LABS: Nortriptyline 39 mcg/L (50-150)
== END 2021-05-23 13:55 | disposition home or self-care (01) | DRG 885 ==
LOC: HO.ED 16:46 → HO.PM5 19:26 → HO.PGERI 05-12 13:19
PROVIDERS: Physician Assistant Medical; Psychiatry & Neurology Psychiatry; Admitting Provider Registered Nurse; Emergency Provider Internal Medicine; PCP Internal Medicine; Visit Provider Psychiatry & Neurology Psychiatry
DX: F33.2 Major depressive disorder, recurrent severe without psychotic features (principal); R45.851 Suicidal ideations; I25.10 Atherosclerotic heart disease of native coronary artery without angina pectoris; E78.5 Hyperlipidemia, unspecified; Z20.822 Contact with and (suspected) exposure to COVID-19; Z87.891 Personal history of nicotine dependence; K58.0 Irritable bowel syndrome with diarrhea; G89.29 Other chronic pain; F41.9 Anxiety disorder, unspecified; J44.9 Chronic obstructive pulmonary disease, unspecified; Z95.5 Presence of coronary angioplasty implant and graft; Z88.0 Allergy status to penicillin; Z88.2 Allergy status to sulfonamides; Z88.5 Allergy status to narcotic agent; Z79.899 Other long term (current) drug therapy
CPT/HCPCS: 36415; 76700; 80053; 80307; 80335; 81001; 82077; 83690; 83735; 84439; 84443; 85025; 87635; 93005; 99285

== ENCOUNTER → 2021-07-07 13:06 | Outpatient (BNVA) | payer OTHER, SELFPAY | PROVIDERS: PCP Internal Medicine; Visit Provider Hospitalist | DX: K21.9 Gastro-esophageal reflux disease without esophagitis (principal) ==

== ENCOUNTER 2021-07-10 16:18 | Inpatient (IN) | payer OTHER, MEDICARE, SELFPAY ==
--- NOTE | ~2021-07-10 | XR_ITS ---
EXAMINATION: XR CHEST CLINICAL INFORMATION: Nasogastric tube. COMPARISON: 04/02/2021 chest radiograph. TECHNIQUE: Frontal view of the chest was obtained. FINDINGS: Support devices: Interval placement of nasogastric tube with tip in side-port seen overlying the left upper quadrant. Mild curvilinear markings are seen at the right lung base. The right upper lung field and left lung are clear. The heart and mediastinal structures are unremarkable. XR/XR chest 1V IMPRESSION: 1. Nasogastric tube appears in good position. 2. Mild bibasilar linear atelectasis without other significant abnormality.
--- NOTE | ~2021-07-10 | CT_ITS ---
EXAMINATION: CT ABDOMEN AND PELVIS WITHOUT CONTRAST CLINICAL INFORMATION: Diffuse abdominal pain. COMPARISON: None TECHNIQUE: Multidetector volumetric imaging was performed from the superior aspect of the liver through the pubic symphysis. Sagittal and coronal reformatted images were obtained on the technologist's workstation. This CT examination was performed using dose optimization techniques as appropriate, variously including the following: *Automated exposure control *Adjustment of mA and/or kV according to patient size (this includes techniques or standardized protocols for targeted exams where dose is matched to indication/reason for exam; i.e. extremities or head) *Use of iterative reconstruction technique DLP: 466 mGy-cm FINDINGS: LUNG BASES: There are emphysematous changes in both lung bases. No acute infiltrate seen. LIVER, GALLBLADDER, AND BILIARY TREE: The liver is normal in size, shape, and attenuation. No focal hepatic lesion or biliary ductal dilatation is present. Elbow has been surgically removed. PANCREAS: Unremarkable. SPLEEN: Unremarkable. ADRENAL GLANDS: Unremarkable. KIDNEYS AND URETERS: The kidneys are normal in size, shape, and attenuation. No hydronephrosis, hydroureter, or calculi seen. No perinephric stranding. BLADDER: Unremarkable. GASTROINTESTINAL TRACT: There is moderate stool, diverticula and gas seen scattered throughout the colon without significant distention. There is a proximal small bowel dynamic obstruction with mesenteric edema the obstruction is most likely in mid and right lower quadrant. There are normal caliber small bowel loops right lower quadrant surrounded by soft tissue density likely inflammatory or infectious etiology. There is mild intramural fat and these normal small bowel bowel segments. There is mild congestion and haziness throughout the small bowel mesentery most localized in midabdomen on axial image 46/3 the exact site of transition point is not well visualized. There are several segments of narrowing with proximal and distal small bowel distention for example coronal image 30/6. No free air seen. Pedicles normal caliber. The stomach is distended with food residue. ABDOMINAL WALL: No significant hernia is appreciated. LYMPH NODES: Normal. VASCULAR: Unremarkable. PELVIC VISCERA: Unremarkable. OSSEOUS STRUCTURES: Unremarkable. CT/CT abdomen pelvis wo con IMPRESSION: Likely adynamic small bowel obstruction. There are several dilated proximal small bowel segments with collapsed digital segments with intramural thickening and mesenteric fat stranding with edema surrounding the normal caliber small bowel loops in the right lower quadrant. The findings are suspicious for distal small bowel enteritis. There is free fluid in the pelvis. No free air seen. Normal appendix.
[2021-07-10 16:44] VITALS: BP 111/81; PULSE 119; RESP 22; TEMP 36.8; O2SAT 97; BMI 25.3
--- NOTE | 2021-07-10 16:45 | ECG_ITS ---
Test Reason : ABDOMINAL PAIN Blood Pressure : / mmHG Vent. Rate : 107 BPM Atrial Rate : 107 BPM P-R Int : 150 ms QRS Dur : 086 ms QT Int : 332 ms P-R-T Axes : 082 068 074 degrees QTc Int : 443 ms Sinus tachycardia Otherwise normal ECG Heart rate has increased Referred By: Laurita Barragan Electronically Signed By:KIKO BUENO MD
--- NOTE | 2021-07-10 16:46 | ED_ITS ---
HPI - Psych General Chief Complaint: Abdominal Pain <Laurita Barragan NP - Last Filed: 07/10/21 16:49> Stated Complaint: bowel issues, depression <Laurita Barragan NP - Last Filed: 07/10/21 16:49> Time Seen by Provider: 07/10/21 16:43 <Laurita Barragan NP - Last Filed: 07/10/21 16:49> Related Data Home Medications: Home Medications Medication Instructions Recorded Confirmed famotidine 40 mg tablet 40 mg PO BID 02/10/21 07/10/21 fluticasone fur. 200 mcg-umeclid 1 puff PO DAILY 05/11/21 07/10/21 62.5 mcg-vilant 25 mcg inhalat.powder (Trelegy Ellipta) polyethylene glycol 3350 1 packet PO DAILY 05/11/21 07/10/21 aluminum-magnesium hydroxide 200 30 ml PO Q6H PRN ml 07/07/21 07/10/21 mg-200 mg/5 mL oral suspension (MAG-AL) levalbuterol tartrate 45 2 puff INHALATION Q4-6H 07/07/21 07/10/21 mcg/actuation aerosol inhaler quetiapine 25 mg tablet (Seroquel) 25 mg PO BID 07/07/21 07/10/21 gabapentin 300 mg capsule 1 cap PO TID 07/10/21 07/10/21 lorazepam 1 mg tablet 1 tab PO TID 07/10/21 07/10/21 nortriptyline 25 mg capsule 1 cap PO BEDTIME 07/10/21 07/10/21 Previous Rx's Medication Instructions Recorded acetaminophen 325 mg tablet 650 mg PO Q6H PRN #0 tab 05/12/21 dicyclomine 10 mg capsule 40 mg PO QIDACHS #0 cap 05/12/21 magnesium hydroxide 400 mg/5 mL 30 ml PO DAILY PRN #0 ml 05/12/21 oral suspension (Milk of Magnesia) simethicone 80 mg chewable tablet 80 mg PO TIDAC #0 tab 05/12/21 (Gas Relief (simethicone)) amlodipine 10 mg tablet 1 tab PO DAILY 30 Days #30 tab 05/23/21 <Laurita Barragan NP - Last Filed: 07/10/21 16:49> Allergies/Adverse Reactions: Allergies Allergy/AdvReac Type Severity Reaction Status Date / Time lamotrigine [From LAMICTAL] Allergy Severe agitation Verified 07/07/21 13:19 and anxiety with titration codeine [CODEINE] Allergy Intermediate INSOMNIA Verified 07/07/21 13:19 Penicillins [PENICILLINS] Allergy Intermediate RASH Verified 07/07/21 13:19 epinephrine [EPINEPHRINE] AdvReac Intermediate Hypertensio Verified 07/07/21 13:19 n escitalopram [From LEXAPRO] AdvReac Intermediate NIGHTMARES Verified 07/07/21 13:19 sertraline [From ZOLOFT] AdvReac Intermediate NIGHTMARES Verified 07/07/21 13:19 sulfamethoxazole AdvReac Intermediate STOMACH Verified 07/07/21 13:19 [From BACTRIM] UPSET <Laurita Barragan NP - Last Filed: 07/10/21 16:49> PMFSH Past Medical History Medical History: Medical History Abnormal nuclear stress test CAD (coronary artery disease) Chronic respiratory failure COPD (chronic obstructive pulmonary disease) Generalized anxiety disorder HLD (hyperlipidemia) Major depressive disorder, recurrent episode, severe with anxious distress Pneumonitis Pre-op evaluation Preop cardiovascular exam Smoking Tardive dyskinesia <Laurita Barragan NP - Last Filed: 07/10/21 16:49> Surgical History: Surgical History Stented coronary artery <Laurita Barragan NP - Last Filed: 07/10/21 16:49> Family History Family History: Family History Father No problems noted. Mother No problems noted. <Laurita Barragan NP - Last Filed: 07/10/21 16:49> Social History Social History: Social History Household Members: Spouse and Children Housing: House Do you presently have visiting nurse or other home services: No Unable to assess alcohol history related to: Unknown Alcohol intake: never Patient Tobacco Use Status: Former Tobacco user Quit Date: 3 months ago Tobacco use type: Cigarette Years Smoked: 40 Smoked in Last 30 Days: No e-Cigarette/Vaping Use: Never Used Second Hand Smoke Exposure: No Use of substances other than those prescribed or required for medical reasons: No Advance Directives: No Advance Directives Information Provided: No service: No Sexual orientation: Lesbian/Triana/Homosexual <Laurita Barragan NP - Last Filed: 07/10/21 16:49> Physical Exam Vital Signs: Vital Signs: Last Vital Signs Temp 97.7 F 07/10/21 21:56 Pulse 95 07/10/21 21:56 Resp 18 07/10/21 21:56 BP 113/66 07/10/21 21:56 Pulse Ox 96 07/10/21 21:56 Body Mass Index 25.3 <Laurita Barragan NP - Last Filed: 07/10/21 16:49> Vital Signs: Last Vital Signs Temp 97.7 F 07/10/21 21:56 Pulse 95 07/10/21 21:56 Resp 18 07/10/21 21:56 BP 113/66 07/10/21 21:56 Pulse Ox 96 07/10/21 21:56 Body Mass Index 25.3 <Brandan German MD - Last Filed: 07/10/21 23:11> Course Course Course Narrative: 1645-This is a rapid medical exam. 71 yo male with h/o IBS, anxiety, depression here with complaints of acute of chronic abdomimal pain x 3 days with NO nausea/vomiting/diarrhea/constipation or urinary symptoms. Also tells me he is a planned admission to inpatient psych and was told to come to the ED today for a bed tomorrow. he is c/o of anxiety, depression and suicidal thoughts. No plan. Will check labs, UA, EKG, KUB. Will need immediate bedding for psych complaints with sitter. Charge nurse aware. Deferred additional HPI, ROS and PE. <Laurita Barragan NP - Last Filed: 07/10/21 16:49> 1645-This is a rapid medical exam. 71 yo male with h/o IBS, anxiety, depression here with complaints of acute of chronic abdomimal pain x 3 days with NO nausea/vomiting/diarrhea/constipation or urinary symptoms. Also tells me he is a planned admission to inpatient psych and was told to come to the ED today for a bed tomorrow. he is c/o of anxiety, depression and suicidal thoughts. No plan. Will check labs, UA, EKG, KUB. Will need immediate bedding for psych complaints with sitter. Charge nurse aware. Deferred additional HPI, ROS and PE. <Brandan German MD - Last Filed: 07/10/21 23:11> MDM - Psych Lab Data Result diagrams: : 07/10/21 17:12 07/10/21 17:12 <Laurita Barragan NP - Last Filed: 07/10/21 16:49> Labs: Lab Results 07/10/21 07/10/21 Range/Units 17:12 17:12 WBC 15.5 H (4.8-10.8) X10*3/uL RBC 6.00 H D (4.60-5.80) X10*6/uL Hgb 18.2 H D (14.0-18.0) g/dl Hct 53.2 H D (42-52) % MCV 88.7 (80-98) fL MCH 30.3 (27.0-33.0) pg MCHC 34.2 (31.0-36.0) g/dl RDW 12.4 (11.0-16.0) % Plt Count 304 (160-400) X10*3/uL MPV 8.6 L (9.4-12.4) fL Immature Gran % (Auto) 0.3 (0.0-0.4) % Neut % (Auto) 85.2 H (45-73) % Lymph % (Auto) 9.2 L (20-40) % [place] % (Auto) 5.1 (2-11) % Eos % (Auto) 0.1 (0-4) % Baso % (Auto) 0.1 (0-2) % Lymph # (Auto) 1.4 (1.2-4.9) X10*3/uL [place] # (Auto) 0.8 (0.1-1.2) X10*3/uL Eos # (Auto) 0.0 (0.0-0.4) X10*3/uL Baso # (Auto) 0.0 (0.0-0.2) X10*3/uL Abs Immat Gran (auto) 0.05 H (0.00-0.03) X10*3/uL Absolute Neuts (auto) 13.2 H (2.0-8.3) X10*3/uL Absolute Nucleated RBC 0.000 (0.0-0.012) X10*3/uL Nucleated RBC % (auto) 0.0 (0.0-0.2) /100WBC Sodium 139 (135-145) mmol/L Potassium 4.5 (3.3-5.1) mmol/L Chloride 101 (96-108) mmol/L Carbon Dioxide 26 (22-29) mmol/L Anion Gap 17 (12-20) BUN 19 H D (9-16) mg/dL Creatinine 1.14 (0.5-1.4) mg/dL Estim Creat Clear Calc 57.1 Estimated GFR > 60 Random Glucose 100 (60-115) mg/dL Calcium 10.4 H D (8.4-10.2) mg/dL Total Bilirubin 0.6 (0.0-1.0) mg/dL Direct Bilirubin 0.3 (0.0-0.5) mg/dL AST 35 D (5-37) U/L ALT 28 (0-40) U/L Alkaline Phosphatase 92 D (39-117) U/L Total Protein 8.2 H D (6.5-8.0) g/dL Albumin 5.0 (3.5-5.0) g/dL <Laurita Barragan NP - Last Filed: 07/10/21 16:49> Lab Results 07/10/21 07/10/21 Range/Units 17:12 17:12 WBC 15.5 H (4.8-10.8) X10*3/uL RBC 6.00 H D (4.60-5.80) X10*6/uL Hgb 18.2 H D (14.0-18.0) g/dl Hct 53.2 H D (42-52) % MCV 88.7 (80-98) fL MCH 30.3 (27.0-33.0) pg MCHC 34.2 (31.0-36.0) g/dl RDW 12.4 (11.0-16.0) % Plt Count 304 (160-400) X10*3/uL MPV 8.6 L (9.4-12.4) fL Immature Gran % (Auto) 0.3 (0.0-0.4) % Neut % (Auto) 85.2 H (45-73) % Lymph % (Auto) 9.2 L (20-40) % [place] % (Auto) 5.1 (2-11) % Eos % (Auto) 0.1 (0-4) % Baso % (Auto) 0.1 (0-2) % Lymph # (Auto) 1.4 (1.2-4.9) X10*3/uL [place] # (Auto) 0.8 (0.1-1.2) X10*3/uL Eos # (Auto) 0.0 (0.0-0.4) X10*3/uL Baso # (Auto) 0.0 (0.0-0.2) X10*3/uL Abs Immat Gran (auto) 0.05 H (0.00-0.03) X10*3/uL Absolute Neuts (auto) 13.2 H (2.0-8.3) X10*3/uL Absolute Nucleated RBC 0.000 (0.0-0.012) X10*3/uL Nucleated RBC % (auto) 0.0 (0.0-0.2) /100WBC Sodium 139 (135-145) mmol/L Potassium 4.5 (3.3-5.1) mmol/L Chloride 101 (96-108) mmol/L Carbon Dioxide 26 (22-29) mmol/L Anion Gap 17 (12-20) BUN 19 H D (9-16) mg/dL Creatinine 1.14 (0.5-1.4) mg/dL Estim Creat Clear Calc 57.1 Estimated GFR > 60 Random Glucose 100 (60-115) mg/dL Calcium 10.4 H D (8.4-10.2) mg/dL Total Bilirubin 0.6 (0.0-1.0) mg/dL Direct Bilirubin 0.3 (0.0-0.5) mg/dL AST 35 D (5-37) U/L ALT 28 (0-40) U/L Alkaline Phosphatase 92 D (39-117) U/L Total Protein 8.2 H D (6.5-8.0) g/dL Albumin 5.0 (3.5-5.0) g/dL <Brandan German MD - Last Filed: 07/10/21 23:11> Discharge Plan Discharge Clinical Impression: Small bowel obstruction <Laurita Barragan NP - Last Filed: 07/10/21 16:49> Patient Disposition: Admitted As Inpatient <Laurita Barragan NP - Last Filed: 07/10/21 16:49>
[2021-07-10 17:06] VITALS: BP 125/82; PULSE 120; RESP 20; O2SAT 95
--- NOTE | 2021-07-10 17:07 | PC.NURSE ---
this RN at bedside to assess patient. patient tearful, states he has upper abdominal pain and nausea x 3 days. has had similar episodes in the past. states that when he gets this pain he feels like a burden. denies having SI, states he just feels depressed. waiting to be seen by provider.
[2021-07-10 17:18] LABS: MANUAL DIFF FLAG NO
[2021-07-10 17:19] LABS: Eosinophils Percent Auto 0.1 % (0-4); Red Cell Distribution Width 12.4 % (11.0-16.0)
[2021-07-10 17:30] LABS: Basophils Percent Auto 0.1 % (0-2); Hematocrit 53.2 % (42-52); Hemoglobin 18.2 g/dl (14.0-18.0); Imm Gran Abs Auto 0.05 X10*3/uL (0.00-0.03); Imm Gran Pct Auto 0.3 % (0.0-0.4); Lymphocytes Absolute Auto 1.4 X10*3/uL (1.2-4.9); Lymphocytes Percent Auto 9.2 % (20-40); Mean Corpuscular HGB Conc 34.2 g/dl (31.0-36.0); Mean Corpuscular Hemoglobin 30.3 pg (27.0-33.0); Mean Corpuscular Volume 88.7 fL (80-98); Mean Platelet Volume 8.6 fL (9.4-12.4); Monocytes Absolute Auto 0.8 X10*3/uL (0.1-1.2); Monocytes Percent Auto 5.1 % (2-11); Neutrophils Absolute Auto 13.2 X10*3/uL (2.0-8.3); Neutrophils Percent Auto 85.2 % (45-73); Platelet Count 304 X10*3/uL (160-400); White Blood Count 15.5 X10*3/uL (4.8-10.8)
[2021-07-10 17:38] LABS: Alanine Aminotransferase 28 U/L (0-40); Alkaline Phosphatase 92 U/L (39-117); Anion Gap 17 (12-20); Aspartate Amino Transferase 35 U/L (5-37); Bilirubin Direct 0.3 mg/dL (0.0-0.5); Bilirubin Total 0.6 mg/dL (0.0-1.0); Blood Urea Nitrogen 19 mg/dL (9-16); Calcium 10.4 mg/dL (8.4-10.2); Carbon Dioxide 26 mmol/L (22-29); Chloride 101 mmol/L (96-108); Creatinine Clr Calc Pharmacy 57.1; Estimated Glomerular Filt Rate > 60; Glucose Random 100 mg/dL (60-115); Potassium 4.5 mmol/L (3.3-5.1); Sodium 139 mmol/L (135-145); Total Protein 8.2 g/dL (6.5-8.0)
--- NOTE | 2021-07-10 17:41 | ED_ITS ---
HPI - Abdominal Pain General Chief Complaint: Abdominal Pain Stated Complaint: bowel issues, depression Time Seen by Provider: 07/10/21 16:43 Source: patient and family Mode of arrival: ambulatory Limitations: no limitations History of Present Illness HPI narrative: Patient history of depression IBS had multiple times suicidal ideation been complaining of abdominal pain for last 3 days similar to that in the past but this time pain is worse cramping pain nauseated does not feel hungry feel belly is bloated and tense had small bowel movement earlier today at this time patient denies any suicidal ideation patient is planned to go as inpatient psych tomorrow Related Data Home Medications Medication Instructions Recorded Confirmed famotidine 40 mg tablet 40 mg PO BID 02/10/21 07/10/21 fluticasone fur. 200 mcg-umeclid 1 puff PO DAILY 05/11/21 07/10/21 62.5 mcg-vilant 25 mcg inhalat.powder (Trelegy Ellipta) polyethylene glycol 3350 1 packet PO DAILY 05/11/21 07/10/21 aluminum-magnesium hydroxide 200 30 ml PO Q6H PRN ml 07/07/21 07/10/21 mg-200 mg/5 mL oral suspension (MAG-AL) levalbuterol tartrate 45 2 puff INHALATION Q4-6H 07/07/21 07/10/21 mcg/actuation aerosol inhaler quetiapine 25 mg tablet (Seroquel) 25 mg PO BID 07/07/21 07/10/21 gabapentin 300 mg capsule 1 cap PO TID 07/10/21 07/10/21 lorazepam 1 mg tablet 1 tab PO TID 07/10/21 07/10/21 nortriptyline 25 mg capsule 1 cap PO BEDTIME 07/10/21 07/10/21 Previous Rx's Medication Instructions Recorded acetaminophen 325 mg tablet 650 mg PO Q6H PRN #0 tab 05/12/21 dicyclomine 10 mg capsule 40 mg PO QIDACHS #0 cap 05/12/21 magnesium hydroxide 400 mg/5 mL 30 ml PO DAILY PRN #0 ml 05/12/21 oral suspension (Milk of Magnesia) simethicone 80 mg chewable tablet 80 mg PO TIDAC #0 tab 05/12/21 (Gas Relief (simethicone)) amlodipine 10 mg tablet 1 tab PO DAILY 30 Days #30 tab 05/23/21 Allergies Allergy/AdvReac Type Severity Reaction Status Date / Time lamotrigine [From LAMICTAL] Allergy Severe agitation Verified 07/07/21 13:19 and anxiety with titration codeine [CODEINE] Allergy Intermediate INSOMNIA Verified 07/07/21 13:19 Penicillins [PENICILLINS] Allergy Intermediate RASH Verified 07/07/21 13:19 epinephrine [EPINEPHRINE] AdvReac Intermediate Hypertensio Verified 07/07/21 13:19 n escitalopram [From LEXAPRO] AdvReac Intermediate NIGHTMARES Verified 07/07/21 13:19 sertraline [From ZOLOFT] AdvReac Intermediate NIGHTMARES Verified 07/07/21 13:19 sulfamethoxazole AdvReac Intermediate STOMACH Verified 07/07/21 13:19 [From BACTRIM] UPSET Review of Systems Review of Systems Yes all other systems are reviewed and are negative Physical Exam Vital Signs: Vital Signs: Last Vital Signs Temp 97.7 F 07/10/21 21:56 Pulse 95 07/10/21 21:56 Resp 18 07/10/21 21:56 BP 113/66 07/10/21 21:56 Pulse Ox 96 07/10/21 21:56 Body Mass Index 25.3 Appearance: Alert. Oriented X3. moderate discomfort Eyes: no pallor /icterus ENT: Pharynx normal. Oral Mucosa moist Neck: Normal inspection. Neck supple. CVS: Normal heart rate and rhythm. Pulses normal. Respiratory: No respiratory distress. Equal air entry bilateral, no wheezing/rales/rhonchi Abdomen: Gaseous distended diffusely tender with guarding no rebound tenderness bowel sounds are sluggish, no mass palpable, no CVA tenderness Skin: Skin warm and dry. Normal skin color. Normal skin turgor. Extremities: No lower extremity edema. Neuro: Oriented X 3. Course Reevaluation(s) Reevaluation #1: Patient with small bowel obstruction case discussed with Dr. Dominguez admit patient to his service. Patient's lactic acid is 1.6 NG tube was placed and fecal smell liquid 400 cc was aspirated patient started feeling little better Time: 22:00 MDM - Abdominal Pain MDM Narrative Medical decision making narrative: Patient diffuse abdominal pain with guarding leukocytosis CT scan showing air-fluid levels? SBO awaiting for the final CT scan report will check lactic acid give IV Zosyn. Differential Diagnosis Differential diagnosis: Likely abdominal pain Lab Data Attestation: I reviewed the patient's lab results. Result diagrams: 07/10/21 17:12 07/10/21 17:12 Labs: Lab Results 07/10/21 07/10/21 Range/Units 17:12 17:12 WBC 15.5 H (4.8-10.8) X10*3/uL RBC 6.00 H D (4.60-5.80) X10*6/uL Hgb 18.2 H D (14.0-18.0) g/dl Hct 53.2 H D (42-52) % MCV 88.7 (80-98) fL MCH 30.3 (27.0-33.0) pg MCHC 34.2 (31.0-36.0) g/dl RDW 12.4 (11.0-16.0) % Plt Count 304 (160-400) X10*3/uL MPV 8.6 L (9.4-12.4) fL Immature Gran % (Auto) 0.3 (0.0-0.4) % Neut % (Auto) 85.2 H (45-73) % Lymph % (Auto) 9.2 L (20-40) % [place] % (Auto) 5.1 (2-11) % Eos % (Auto) 0.1 (0-4) % Baso % (Auto) 0.1 (0-2) % Lymph # (Auto) 1.4 (1.2-4.9) X10*3/uL [place] # (Auto) 0.8 (0.1-1.2) X10*3/uL Eos # (Auto) 0.0 (0.0-0.4) X10*3/uL Baso # (Auto) 0.0 (0.0-0.2) X10*3/uL Abs Immat Gran (auto) 0.05 H (0.00-0.03) X10*3/uL Absolute Neuts (auto) 13.2 H (2.0-8.3) X10*3/uL Absolute Nucleated RBC 0.000 (0.0-0.012) X10*3/uL Nucleated RBC % (auto) 0.0 (0.0-0.2) /100WBC Sodium 139 (135-145) mmol/L Potassium 4.5 (3.3-5.1) mmol/L Chloride 101 (96-108) mmol/L Carbon Dioxide 26 (22-29) mmol/L Anion Gap 17 (12-20) BUN 19 H D (9-16) mg/dL Creatinine 1.14 (0.5-1.4) mg/dL Estim Creat Clear Calc 57.1 Estimated GFR > 60 Random Glucose 100 (60-115) mg/dL Calcium 10.4 H D (8.4-10.2) mg/dL Total Bilirubin 0.6 (0.0-1.0) mg/dL Direct Bilirubin 0.3 (0.0-0.5) mg/dL AST 35 D (5-37) U/L ALT 28 (0-40) U/L Alkaline Phosphatase 92 D (39-117) U/L Total Protein 8.2 H D (6.5-8.0) g/dL Albumin 5.0 (3.5-5.0) g/dL Discharge Plan Discharge Clinical Impression: Small bowel obstruction Patient Disposition: Admitted As Inpatient [facility] Past Medical History Medical History Abnormal nuclear stress test CAD (coronary artery disease) Chronic respiratory failure COPD (chronic obstructive pulmonary disease) Generalized anxiety disorder HLD (hyperlipidemia) Major depressive disorder, recurrent episode, severe with anxious distress Pneumonitis Pre-op evaluation Preop cardiovascular exam Smoking Tardive dyskinesia Surgical History Stented coronary artery Family History Family History Father No problems noted. Mother No problems noted. Social History Social History Household Members: Spouse and Children Housing: House Do you presently have visiting nurse or other home services: No Unable to assess alcohol history related to: Unknown Alcohol intake: never Patient Tobacco Use Status: Former Tobacco user Quit Date: 3 months ago Tobacco use type: Cigarette Years Smoked: 40 Smoked in Last 30 Days: No e-Cigarette/Vaping Use: Never Used Second Hand Smoke Exposure: No Use of substances other than those prescribed or required for medical reasons: No Advance Directives: No Advance Directives Information Provided: No service: No Sexual orientation: Lesbian/Triana/Homosexual
--- NOTE | 2021-07-10 18:23 | PC.NURSE ---
Jameel is resting in bed alert and oriented x 3. He states that he came to the ED for evaluation of diffuse abdominal pain. he denies nausea or vomiting, admits to frequent belching. he appears pale, skin dry/poor turgor. He makes eye contact with Rn, is calm and cooperative, and denies active SI. IV access obtained. Pt is awaiting CT and MD dispo. is at the bedside.
[2021-07-10] MEDS: ondansetron HCL 4 MG/2 ML VIAL IVPUSH (18:51)
[2021-07-10] MEDS: Morphine Sulfate 4 MG/ML CARTRIDGE IVPUSH (18:51)
[2021-07-10] MEDS: 0.9 % Sodium Chloride 1,000 ML 999 ML IVCONT ×2 (18:56→21:24)
[2021-07-10 19:05] VITALS: BP 137/78; PULSE 106; RESP 20; TEMP 36.7; O2SAT 98
[2021-07-10] MEDS: diphenhydrAMINE HCL 50 MG/ML VIAL 12.5 MG IVPUSH (20:00)
[2021-07-10] MEDS: Piperacillin Sodium/Tazobactam 3.375 GM in 0.9 % Sodium Chloride 50 ML IV (20:14)
--- NOTE | 2021-07-10 20:15 | PC.NURSE ---
Per MD patient might have a blockage. Blood cultures and lactic drawn and abx ordered. Patient has an allergy to PCN and MD aware. Patient pre medicated with Benadryl.
[2021-07-10 20:35] VITALS: RESP 15
[2021-07-10] MEDS: HYDROmorphone HCl 1 MG/ML SYRINGE IVPUSH (20:35)
[2021-07-10 21:15] LABS: Lactic Acid 1.6 mmol/L (0.5-2.0)
[2021-07-10 21:17] LABS: COVID-19 Test Negative (Negative)
[2021-07-10 21:39] VITALS: RESP 16
[2021-07-10 21:56] VITALS: BP 113/66; PULSE 95; RESP 18; TEMP 36.5; O2SAT 96
[2021-07-10] MEDS: Lidocaine HCl 4 % MPF w/MADgic 5 ML AMPUL 1 APPL TOPICAL (22:31)
--- NOTE | 2021-07-10 23:41 | PC.NURSE ---
pt called this nurse into room and stated that he slightly pulled out NG tube. tape and nose clamp was pulled out approximately 1 inch. this nurse reinserted NG tube approx 1 inch and re-secured with new tape and clamp. NG tube still patent and draining brown-howard gastric contents. (Kristen) notified. this nurse asked MD if he wanted another chest XR to confirm placement and provider said not at this time.
[2021-07-11] VITALS (7 sets, daily range): BP systolic 102–134; BP diastolic 64–75; PULSE 91–112; RESP 16–20; TEMP 36.3–37.7; O2SAT 91–98; BMI 25.2
[2021-07-11] MEDS: HYDROmorphone HCl 0.5 MG/0.5 ML SYRINGE IVPUSH ×3 (00:32→06:50)
[2021-07-11] MEDS: ondansetron HCL 4 MG/2 ML VIAL IVPUSH (00:38)
[2021-07-11] MEDS: Dextrose 5 % and Lactated Ring 1,000 ML 125 ML IVCONT ×3 (00:49→16:09)
[2021-07-11 07:04] LABS: MANUAL DIFF FLAG NO
[2021-07-11 07:13] LABS: Basophils Percent Auto 0.1 % (0-2); Eosinophils Percent Auto 0.1 % (0-4); Hematocrit 48.6 % (42-52); Hemoglobin 16.1 g/dl (14.0-18.0); Imm Gran Abs Auto 0.04 X10*3/uL (0.00-0.03); Imm Gran Pct Auto 0.3 % (0.0-0.4); Lymphocytes Absolute Auto 1.6 X10*3/uL (1.2-4.9); Lymphocytes Percent Auto 11.1 % (20-40); Mean Corpuscular HGB Conc 33.1 g/dl (31.0-36.0); Mean Corpuscular Hemoglobin 29.5 pg (27.0-33.0); Mean Corpuscular Volume 89.2 fL (80-98); Mean Platelet Volume 9.1 fL (9.4-12.4); Neutrophils Absolute Auto 11.6 X10*3/uL (2.0-8.3); Neutrophils Percent Auto 81.4 % (45-73); Platelet Count 239 X10*3/uL (160-400); Red Blood Count 5.45 X10*6/uL (4.60-5.80); Red Cell Distribution Width 12.4 % (11.0-16.0); White Blood Count 14.2 X10*3/uL (4.8-10.8)
[2021-07-11 08:56] LABS: Anion Gap 14 (12-20); Blood Urea Nitrogen 19 mg/dL (9-16); Calcium 9.2 mg/dL (8.4-10.2); Carbon Dioxide 25 mmol/L (22-29); Chloride 105 mmol/L (96-108); Estimated Glomerular Filt Rate > 60; Glucose Random 136 mg/dL (60-115); Potassium 4.8 mmol/L (3.3-5.1); Sodium 139 mmol/L (135-145)
[2021-07-11] MEDS: LORazepam 1 MG TABLET PO ×2 (09:32→21:30)
[2021-07-11] MEDS: Gabapentin 300 MG CAPSULE PO (09:32)
[2021-07-11] MEDS: QUEtiapine Fumarate 25 MG TABLET PO (09:32)
[2021-07-11] MEDS: amLODIPine Besylate 10 MG TABLET PO (09:32)
[2021-07-11] MEDS: 0.9 % Sodium Chloride Flush 3 ML SYRINGE IVFLUSH (09:32)
--- NOTE | 2021-07-11 10:50 | PM.HPGS ---
History of Present Illness History of Present Illness Date of Service: 07/11/21 <Vanda Taylor PA-C - Last Filed: 07/11/21 14:48> 07/12/21 <James Dominguez MD - Last Filed: 07/12/21 07:27> Chief complaint: Small bowel obstruction <Vanda Taylor PA-C - Last Filed: 07/11/21 14:48> Narrative: Jameel Cameron is a 71 year old male who presented to the ED with complaints of abdominal pain. The pain began three days prior and was diffuse. The pain feels like my insides are twisting and turning . He has a history of IBS and reports this episode of pain was more severe in nature then during his IBS flares. He denies nausea, vomiting, fevers or chills. His last bowel movement was yesterday afternoon and was normal for him. He has not passed flatus since. Work up in the ED included a CT scan which showed dilated stomach and small bowel with intramural thickening and mesenteric fat stranding with edema. An NGT was placed in the ED with immediate evacuation of a large amount of feculent material. He feels better this morning. His pain is slightly better and distention has improved. Also stated in the ED physician note is of a possible inpatient psych admission per the patient. <Vanda Taylor PA-C - Last Filed: 07/11/21 14:48> Review of Systems Constitutional: Constitutional: Denies chills and Denies fever(s) <Vanda Taylor PA-C - Last Filed: 07/11/21 14:48> ENT: Denies dizziness <Vanda Taylor PA-C - Last Filed: 07/11/21 14:48> Gastrointestinal: Gastrointestinal: Reports as per HPI, Denies hematochezia and Denies change in bowel habits <MARYSE Mckeon Last Filed: 07/11/21 14:48> Genitourinary: Genitourinary: Denies hematuria and Denies dysuria <Vanda Taylor PA-C - Last Filed: 07/11/21 14:48> Integumentary/Breasts: Skin/Breast: Denies rash <Vanda Taylor PA-C - Last Filed: 07/11/21 14:48> Neurologic: Denies dizziness and Denies focal weakness <Vanda Taylor PA-C - Last Filed: 07/11/21 14:48> [facility] Past Medical History Medical History: Medical History (Updated 07/11/21 @ 13:48 by Vanessa Torres NP) CAD (coronary artery disease) Chronic respiratory failure COPD (chronic obstructive pulmonary disease) Generalized anxiety disorder HLD (hyperlipidemia) Pneumonitis Smoking Tardive dyskinesia <Vanda Taylor PA-C - Last Filed: 07/11/21 14:48> Family History Family History: Family History Father No problems noted. Mother No problems noted. <Vanda Taylor PA-C - Last Filed: 07/11/21 14:48> Surgical History Surgical History: Surgical History (Updated 07/11/21 @ 11:03 by Vanda Taylor PA-C) H/O bilateral inguinal hernia repair Hx of cholecystectomy Stented coronary artery <Vanda Taylor PA-C - Last Filed: 07/11/21 14:48> Social History Social History: Social History Household Members: Other Housing: House Do you presently have visiting nurse or other home services: Yes (O2 at home as needed) Unable to assess alcohol history related to: Unknown Alcohol intake: never Patient Tobacco Use Status: Former Tobacco user Quit Date: 3 months ago Tobacco use type: Cigarette Years Smoked: 40 Smoked in Last 30 Days: No e-Cigarette/Vaping Use: Never Used Second Hand Smoke Exposure: No Use of substances other than those prescribed or required for medical reasons: No Currently Displaying Signs/Symptoms of Drug Intoxication Withdrawal: No Have you been hit, kicked, punched, or otherwise hurt by someone within the past year? If so, by whom?: No Do you feel safe in your current relationship?: No Current Relationship Is there a partner from a previous relationship who is making you feel unsafe now?: No Are you made to feel afraid or neglected: No Advance Directives: No Advance Directives Information Provided: No Do you have thoughts of harming others: None Do you have a plan to hurt others: No Plan Recently lost weight without trying: Yes How much weight loss: 2-13 pounds Eating poorly because of decreased appetite: No Nutrition screen score: 3 Nutrition Risks: No Nutritional Risk Poor oral hygiene: No service: No Sexual orientation: Lesbian/Triana/Homosexual <Vanda Taylor PA-C - Last Filed: 07/11/21 14:48> Meds Allergies/Adverse reactions: Allergies Allergy/AdvReac Type Severity Reaction Status Date / Time lamotrigine [From LAMICTAL] Allergy Severe agitation Verified 07/07/21 13:19 and anxiety with titration codeine [CODEINE] Allergy Intermediate INSOMNIA Verified 07/07/21 13:19 Penicillins [PENICILLINS] Allergy Intermediate RASH Verified 07/07/21 13:19 epinephrine [EPINEPHRINE] AdvReac Intermediate Hypertensio Verified 07/07/21 13:19 n escitalopram [From LEXAPRO] AdvReac Intermediate NIGHTMARES Verified 07/07/21 13:19 sertraline [From ZOLOFT] AdvReac Intermediate NIGHTMARES Verified 07/07/21 13:19 sulfamethoxazole AdvReac Intermediate STOMACH Verified 07/07/21 13:19 [From BACTRIM] UPSET <Vanda Taylro PA-C - Last Filed: 07/11/21 14:48> Active Medications: Current Medications Acetaminophen (Acetaminophen 325 Mg Tablet) 650 mg PO QID PRN PRN Reason: headache, temp > 101 Amlodipine Besylate (Amlodipine Besylate 10 Mg Tablet) 10 mg PO DAILY ÁLVARO; Protocol Last Admin: 07/11/21 09:32 Dose: 10 mg Documented by: Gabapentin (Gabapentin 300 Mg Capsule) 300 mg PO TID ÁLVARO Last Admin: 07/11/21 09:32 Dose: 300 mg Documented by: Hydromorphone HCl (Hydromorphone Hcl 0.5 Mg/0.5 Ml Syringe) 0.5 mg IVPUSH Q2H PRN; Protocol PRN Reason: abdominal pain Last Admin: 07/11/21 06:50 Dose: 0.5 mg Documented by: Dextrose/Lactated Ringer's (D5lr) 1,000 mls @ 125 mls/hr IVCONT .Q8H ÁLVARO Last Admin: 07/11/21 09:32 Dose: 125 mls/hr Documented by: Lorazepam (Lorazepam 1 Mg Tablet) 1 mg PO TID [facility] Last Admin: 07/11/21 09:32 Dose: 1 mg Documented by: Non-Formulary Medication (Levalbuterol Tartrate) 2 puff INHALE Q4H [facility] Non-Formulary Medication (Teuppojccgy-Bbmqkpgri-Dolbchza [Trelegy Ellipta]) 1 puff PO DAILY [facility] Nortriptyline HCl (Nortriptyline Hcl 25 Mg Capsule) 25 mg PO BEDTIME [facility] Last Admin: 07/10/21 22:30 Dose: Not Given Documented by: Ondansetron HCl (Ondansetron Hcl 4 Mg/2 Ml Vial) 4 mg IVPUSH Q8H PRN PRN Reason: Nausea Last Admin: 07/11/21 00:38 Dose: 4 mg Documented by: Pharmacy Consult (Consult Rx Perform Med Rec) 1 each MISCELLANE ONCE PRN PRN Reason: Consult order Pharmacy Consult (Consult Rx Perform Med Rec) 1 each MISCELLANE ONCE PRN PRN Reason: Consult order Sodium Chloride (0.9 % Sodium Chloride Flush 3 Ml Syringe) 3 ml IVFLUSH QSHIFT [facility] Last Admin: 07/11/21 09:32 Dose: 3 ml Documented by: <Vanda Taylor PA-C - Last Filed: 07/11/21 14:48> Home medications: Home Medications Medication Instructions Recorded Confirmed Last Taken Type famotidine 40 mg tablet 40 mg PO BID 02/10/21 07/10/21 05/11/21 08:00 History fluticasone fur. 200 mcg-umeclid 1 puff PO DAILY 05/11/21 07/10/21 05/10/21 08:00 History 62.5 mcg-vilant 25 mcg inhalat.powder (Trelegy Ellipta) polyethylene glycol 3350 1 packet PO DAILY 05/11/21 07/10/21 05/10/21 08:00 History aluminum-magnesium hydroxide 200 30 ml PO Q6H PRN ml 07/07/21 07/10/21 Unknown History mg-200 mg/5 mL oral suspension (MAG-AL) levalbuterol tartrate 45 2 puff INHALATION Q4-6H 07/07/21 07/10/21 Unknown History mcg/actuation aerosol inhaler quetiapine 25 mg tablet (Seroquel) 12.5 mg PO BID PRN 07/07/21 07/11/21 Unknown History gabapentin 300 mg capsule 300 mg PO BEDTIME 07/10/21 07/11/21 Unknown History lorazepam 1 mg tablet 1 tab PO BID PRN 07/10/21 07/11/21 Unknown History nortriptyline 25 mg capsule 1 cap PO BEDTIME 07/10/21 07/10/21 Unknown History gabapentin 100 mg capsule 100 mg PO DAILY 07/11/21 07/11/21 Unknown History <MARYSE Mckeon Last Filed: 07/11/21 14:48> Physical Exam Vital Signs: Vital Signs: Last Vital Signs Temp 97.3 F 07/11/21 07:21 Pulse 99 07/11/21 07:21 Resp 20 07/11/21 07:21 BP 104/64 07/11/21 07:21 Pulse Ox 91 L 07/11/21 07:21 Body Mass Index 25.2 <MARYSE Mckeon Last Filed: 07/11/21 14:48> Const: General: comfortable, no acute distress and alert <MARYSE Mckeon Last Filed: 07/11/21 14:48> Orientation/consciousness: patient oriented x3 <MARYSE Mckeon Last Filed: 07/11/21 14:48> Resp: Effort & Inspection: normal respiratory effort <MARYSE Mckeon Last Filed: 07/11/21 14:48> Cardio: Rate: regular rate <MARYSE Mckeon Last Filed: 07/11/21 14:48> GI: Inspection: Yes distended <MARYSE Mckeon Last Filed: 07/11/21 14:48> Palpation (GI): Soft to palpation, Tenderness to palpation present (GI) (diffusely), no guarding and not rigid <MARYSE Mckeon Last Filed: 07/11/21 14:48> Percussion: Yes dullness to percussion <MARYSE Mckeon Last Filed: 07/11/21 14:48> Skin: General skin exam: no rashes or lesions noted <MARYSE Mckeon Last Filed: 07/11/21 14:48> Neuro: General: patient oriented x3 <MARYSE Mckeon Last Filed: 07/11/21 14:48> Extrem: General: Yes no clubbing, cyanosis or edema <MARYSE Mckeon Last Filed: 07/11/21 14:48> Results Results Labs: Short CBC 07/10/21 07/11/21 Range/Units 17:12 06:41 WBC 15.5 H 14.2 H (4.8-10.8) X10*3/uL Hgb 18.2 H D 16.1 (14.0-18.0) g/dl Hct 53.2 H D 48.6 (42-52) % Plt Count 304 239 (160-400) X10*3/uL BMP 07/10/21 07/11/21 17:12 08:26 Sodium 139 139 Potassium 4.5 4.8 Chloride 101 105 Carbon Dioxide 26 25 BUN 19 H D 19 H Creatinine 1.14 0.88 Calcium 10.4 H D 9.2 D Liver Function 07/10/21 Range/Units 17:12 Total Bilirubin 0.6 (0.0-1.0) mg/dL Direct Bilirubin 0.3 (0.0-0.5) mg/dL AST 35 D (5-37) U/L ALT 28 (0-40) U/L Alkaline Phosphatase 92 D (39-117) U/L Albumin 5.0 (3.5-5.0) g/dL <MARYSE Mckeon Last Filed: 07/11/21 14:48> Assessment and Plan (1) Small bowel obstruction: Status: Acute <MARYSE Mckeon Last Filed: 07/11/21 14:48> (2) IBS (irritable bowel syndrome): Status: Acute <MARYSE Mckeon Last Filed: 07/11/21 14:48> (3) Depression: Qualifiers: Active/Remission status: currently active Depression Type: major depressive disorder Major depression episode severity: severe Major depression recurrence: recurrent Psychotic features: without psychotic features Qualified Code(s): F33.2 - Major depressive disorder, recurrent severe without psychotic features <Vanda Taylor PA-C - Last Filed: 07/11/21 14:48> Status: Acute <Vanda Taylor PA-C - Last Filed: 07/11/21 14:48> 71 year old male with PMH including IBS, MDD, CAD, COPD, HTN who presented with complaints of abdominal pain for 3 days associated with abdominal distention with a CT demonstrating dilated stomach/small bowel with intramural thickening and mesenteric fat stranding. Also demonstrated were small bowel loops in the right lower quadrant surrounded by soft tissue density possibly inflammatory or infectious in etiology. He has been admitted to the surgical service for further treatment of the SBO. He feels better after NGT placement. Continue conservative measures of NGT decompression to low intermittent suction, bowel rest, IVF. Etiology of obstruction may be secondary to adhesions from prior surgery or small bowel enteritis given the changes found on CT. GI has been consulted for further evaluation. Psych has also been consulted as the patient stated he was presenting for psych admission to the ED staff. <Vanda Taylor PA-C - Last Filed: 07/11/21 14:48> 71 year old male with PMH including IBS, MDD, CAD, COPD, HTN who presented with complaints of abdominal pain for 3 days associated with abdominal distention with a CT demonstrating dilated stomach/small bowel with intramural thickening and mesenteric fat stranding. Also demonstrated were small bowel loops in the right lower quadrant surrounded by soft tissue density possibly inflammatory or infectious in etiology. He has been admitted to the surgical service for further treatment of the SBO. He feels better after NGT placement. Continue conservative measures of NGT decompression to low intermittent suction, bowel rest, IVF. Etiology of obstruction may be secondary to adhesions from prior surgery or small bowel enteritis given the changes found on CT. GI has been consulted for further evaluation. Psych has also been consulted as the patient stated he was presenting for psych admission to the ED staff. Patient independently seen and evaluated. Patient presents with complaints of abdominal distention and abdominal pain with a prior history of cholecystectomy and bilateral inguinal hernia repairs. Workup revealed distended stomach and small bowel with a transition point in the mid small bowel. Findings were suggestive of a small-bowel obstruction. Nasogastric tube was placed in the emergency department. I adjusted the suction and was able to aspirate approximately 300 mL gastric fluid. Patient reported decreased abdominal pain and distension following this. I recommended non operative management of this partial small-bowel obstruction. He will continue NPO, IV fluids, nasogastric tube decompression. If there is no improvement, abdominal exploration may be required. Patient understands and agrees with the plan. <James Dominguez MD - Last Filed: 07/12/21 07:27> Quality Stroke Does the patient have a stroke diagnosis?: No <Vanda Taylor PA-C - Last Filed: 07/11/21 14:48> VTE Prior VTE?: No <Vanda Taylor PA-C - Last Filed: 07/11/21 14:48> VTE Risk Level:: Surgical - moderate <Vanda Taylor PA-C - Last Filed: 07/11/21 14:48> VTE Device Contraindication: N/A - Device Ordered <Vanda Taylor PA-C - Last Filed: 07/11/21 14:48> VTE Drug Contraindication: Treatment Not Indicated <Vanda Taylor PA-C - Last Filed: 07/11/21 14:48> Procedures Date of Service Date of Service: 07/11/21 <Vanda Taylor PA-C - Last Filed: 07/11/21 14:48>
--- NOTE | 2021-07-11 12:52 | MHC.CM.PN ---
met with pt who lives with his pt is indepdent and does not expect t require servceis yadira nash he has own transportaion home
--- NOTE | 2021-07-11 13:41 | P.CONIM_ITS ---
History of Present Illness Data of Consult Service Date: 07/11/21 Requesting physician: Vanda Taylor Primary Care Provider: Jacob Loza MD [facility] Reason for consult: Medical Management 71-year-old man admitted General surgery for abdominal pain and small-bowel obstruction. Patient reports over the last week he has had pain has been worsening with some nausea. Presented to the ER and abdominal CT showed adynamic obstruction with several dilated proximal small bowel segments. NG t ube was placed, he was admitted by General surgery. He denied fevers, chills, chest pain shortness of breath. Medical consultation was placed for medical evaluation. Review of Systems Review of Systems: Denies any recent fever chills or decrease in appetite respiratory denies any shortness of breath coverage production cardiovascular denies chest pain gastrointestinal reports diffuse abdominal pain genitourinary denies any dysuria frequency or hematuria musculoskeletal denies any joint pain or swelling neuropsych denies any weakness or seizures all other systems reviewed are negative [facility] Medical History (Updated 07/11/21 @ 13:48 by Vanessa Torres NP) CAD (coronary artery disease) Chronic respiratory failure COPD (chronic obstructive pulmonary disease) Generalized anxiety disorder HLD (hyperlipidemia) Pneumonitis Smoking Tardive dyskinesia Family History Father No problems noted. Mother No problems noted. Pertinent family history: no cardiac disease Surgical History (Updated 07/11/21 @ 11:03 by Vanda Taylor PA-C) H/O bilateral inguinal hernia repair Hx of cholecystectomy Stented coronary artery Social History Household Members: Other Housing: House Do you presently have visiting nurse or other home services: Yes (O2 at home as needed) Unable to assess alcohol history related to: Unknown Alcohol intake: never Patient Tobacco Use Status: Former Tobacco user Quit Date: 3 months ago Tobacco use type: Cigarette Years Smoked: 40 Smoked in Last 30 Days: No e-Cigarette/Vaping Use: Never Used Second Hand Smoke Exposure: No Use of substances other than those prescribed or required for medical reasons: No Currently Displaying Signs/Symptoms of Drug Intoxication Withdrawal: No Have you been hit, kicked, punched, or otherwise hurt by someone within the past year? If so, by whom?: No Do you feel safe in your current relationship?: No Current Relationship Is there a partner from a previous relationship who is making you feel unsafe now?: No Are you made to feel afraid or neglected: No Advance Directives: No Advance Directives Information Provided: No Do you have thoughts of harming others: None Do you have a plan to hurt others: No Plan Recently lost weight without trying: Yes How much weight loss: 2-13 pounds Eating poorly because of decreased appetite: No Nutrition screen score: 3 Nutrition Risks: No Nutritional Risk Poor oral hygiene: No service: No Sexual orientation: Lesbian/Triana/Homosexual Meds Allergies Allergy/AdvReac Type Severity Reaction Status Date / Time lamotrigine [From LAMICTAL] Allergy Severe agitation Verified 07/07/21 13:19 and anxiety with titration codeine [CODEINE] Allergy Intermediate INSOMNIA Verified 07/07/21 13:19 Penicillins [PENICILLINS] Allergy Intermediate RASH Verified 07/07/21 13:19 epinephrine [EPINEPHRINE] AdvReac Intermediate Hypertensio Verified 07/07/21 13:19 n escitalopram [From LEXAPRO] AdvReac Intermediate NIGHTMARES Verified 07/07/21 13:19 sertraline [From ZOLOFT] AdvReac Intermediate NIGHTMARES Verified 07/07/21 13:19 sulfamethoxazole AdvReac Intermediate STOMACH Verified 07/07/21 13:19 [From BACTRIM] UPSET Active Medications: Current Medications Acetaminophen (Acetaminophen 325 Mg Tablet) 650 mg PO QID PRN PRN Reason: headache, temp > 101 Amlodipine Besylate (Amlodipine Besylate 10 Mg Tablet) 10 mg PO DAILY ÁLVARO; Protocol Last Admin: 07/11/21 09:32 Dose: 10 mg Documented by: Gabapentin (Gabapentin 300 Mg Capsule) 300 mg PO TID ÁLVARO Last Admin: 07/11/21 09:32 Dose: 300 mg Documented by: Hydromorphone HCl (Hydromorphone Hcl 0.5 Mg/0.5 Ml Syringe) 0.5 mg IVPUSH Q2H PRN; Protocol PRN Reason: abdominal pain Last Admin: 07/11/21 06:50 Dose: 0.5 mg Documented by: Dextrose/Lactated Ringer's (D5lr) 1,000 mls @ 125 mls/hr IVCONT .Q8H ÁLVARO Last Admin: 07/11/21 09:32 Dose: 125 mls/hr Documented by: Non-Formulary Medication (Levalbuterol Tartrate) 2 puff INHALE Q4H [facility] Non-Formulary Medication (Hgcryuxnuov-Neixxhidq-Edblexxo [Trelegy Ellipta]) 1 puff PO DAILY [facility] Nortriptyline HCl (Nortriptyline Hcl 25 Mg Capsule) 25 mg PO BEDTIME [facility] Last Admin: 07/10/21 22:30 Dose: Not Given Documented by: Ondansetron HCl (Ondansetron Hcl 4 Mg/2 Ml Vial) 4 mg IVPUSH Q8H PRN PRN Reason: Nausea Last Admin: 07/11/21 00:38 Dose: 4 mg Documented by: Pharmacy Consult (Consult Rx Perform Med Rec) 1 each MISCELLANE ONCE PRN PRN Reason: Consult order Pharmacy Consult (Consult Rx Perform Med Rec) 1 each MISCELLANE ONCE PRN PRN Reason: Consult order Sodium Chloride (0.9 % Sodium Chloride Flush 3 Ml Syringe) 3 ml IVFLUSH QSHIFT [facility] Last Admin: 07/11/21 09:32 Dose: 3 ml Documented by: Home Medications Medication Instructions Recorded Confirmed Last Taken Type famotidine 40 mg tablet 40 mg PO BID 02/10/21 07/10/21 05/11/21 08:00 History fluticasone fur. 200 mcg-umeclid 1 puff PO DAILY 05/11/21 07/10/21 05/10/21 08:00 History 62.5 mcg-vilant 25 mcg inhalat.powder (Trelegy Ellipta) polyethylene glycol 3350 1 packet PO DAILY 05/11/21 07/10/21 05/10/21 08:00 History aluminum-magnesium hydroxide 200 30 ml PO Q6H PRN ml 07/07/21 07/10/21 Unknown History mg-200 mg/5 mL oral suspension (MAG-AL) levalbuterol tartrate 45 2 puff INHALATION Q4-6H 07/07/21 07/10/21 Unknown History mcg/actuation aerosol inhaler quetiapine 25 mg tablet (Seroquel) 12.5 mg PO BID PRN 07/07/21 07/11/21 Unknown History gabapentin 300 mg capsule 300 mg PO BEDTIME 07/10/21 07/11/21 Unknown History lorazepam 1 mg tablet 1 tab PO BID PRN 07/10/21 07/11/21 Unknown History nortriptyline 25 mg capsule 1 cap PO BEDTIME 07/10/21 07/10/21 Unknown History gabapentin 100 mg capsule 100 mg PO DAILY 07/11/21 07/11/21 Unknown History Physical Exam Vital Signs and Narrative: Vital Signs: Last Vital Signs Temp 98.7 F 07/11/21 12:00 Pulse 108 H 07/11/21 12:00 Resp 20 07/11/21 12:00 BP 122/75 07/11/21 12:00 Pulse Ox 95 07/11/21 12:00 Body Mass Index 25.2 Results Labs CBC and Chem 7: 07/11/21 06:41 07/11/21 08:26 Labs: Laboratory Results - last 24 hr 07/10/21 07/10/21 07/10/21 17:12 17:12 20:54 MCV 88.7 MCH 30.3 MCHC 34.2 RDW 12.4 Plt Count 304 MPV 8.6 L Immature Gran % (Auto) 0.3 Neut % (Auto) 85.2 H Lymph % (Auto) 9.2 L [place] % (Auto) 5.1 Eos % (Auto) 0.1 Baso % (Auto) 0.1 Lymph # (Auto) 1.4 [place] # (Auto) 0.8 Eos # (Auto) 0.0 Baso # (Auto) 0.0 Abs Immat Gran (auto) 0.05 H Absolute Neuts (auto) 13.2 H Absolute Nucleated RBC 0.000 Nucleated RBC % (auto) 0.0 Anion Gap 17 Estim Creat Clear Calc 57.1 Estimated GFR > 60 Random Glucose 100 Lactic Acid 1.6 Calcium 10.4 H D Total Bilirubin 0.6 Direct Bilirubin 0.3 AST 35 D ALT 28 Alkaline Phosphatase 92 D Total Protein 8.2 H D Albumin 5.0 COVID-19 ([facility]) COVID-19 Clin Com 07/10/21 07/11/21 07/11/21 20:56 06:41 08:26 MCV 89.2 MCH 29.5 MCHC 33.1 RDW 12.4 Plt Count 239 MPV 9.1 L Immature Gran % (Auto) 0.3 Neut % (Auto) 81.4 H Lymph % (Auto) 11.1 L [place] % (Auto) 7.0 Eos % (Auto) 0.1 Baso % (Auto) 0.1 Lymph # (Auto) 1.6 [place] # (Auto) 1.0 Eos # (Auto) 0.0 Baso # (Auto) 0.0 Abs Immat Gran (auto) 0.04 H Absolute Neuts (auto) 11.6 H Absolute Nucleated RBC 0.000 Nucleated RBC % (auto) 0.0 Anion Gap 14 Estim Creat Clear Calc 74.0 Estimated GFR > 60 Random Glucose 136 H D Lactic Acid Calcium 9.2 D Total Bilirubin Direct Bilirubin AST ALT Alkaline Phosphatase Total Protein Albumin COVID-19 ([facility]) Negative COVID-19 Clin Com See Note Imaging Radiologist's Impressions: Impressions Abdomen/Pelvis CT 07/10/21 17:58 IMPRESSION: Likely adynamic small bowel obstruction. There are several dilated proximal small bowel segments with collapsed digital segments with intramural thickening and mesenteric fat stranding with edema surrounding the normal caliber small bowel loops in the right lower quadrant. The findings are suspicious for distal small bowel enteritis. There is free fluid in the pelvis. No free air seen. Normal appendix. Chest X-Ray 07/10/21 22:04 IMPRESSION: 1. Nasogastric tube appears in good position. 2. Mild bibasilar linear atelectasis without other significant abnormality. Assessment and Plan (1) Small bowel obstruction: Status: Acute (2) Depression: Qualifiers: Active/Remission status: currently active Depression Type: major depressive disorder Major depression episode severity: severe Major depression recurrence: recurrent Psychotic features: without psychotic features Qualified Code(s): F33.2 - Major depressive disorder, recurrent severe without psychotic features Status: Acute (3) Hypertension: Status: Acute (4) Leukocytosis (leucocytosis): Status: Acute 71-year-old man admitted by General surgery for small-bowel obstruction Small-bowel obstruction. Management as per surgical team Continue NG tube Pain management Leukocytosis. likely reactive from dehydration Hypertension Amlodipine Mental health. Patient was scheduled for voluntary inpatient psychiatric admission Consult behavior health team once patient is medically cleared Continue home medications DVT prophylaxis with pneumatic compression boots Attending Dr. Bailey Full code
--- NOTE | 2021-07-11 17:16 | PC.NURSE ---
pt states his gabapentin is the wrong dosing. Normally takes 100mg in am and 300mg at bed time. Also reports taking pepcid 40mg bid. Provider notified, no new orders at this time.
--- NOTE | 2021-07-11 19:24 | CONS_ITS ---
DATE OF SERVICE: 07/11/2021 REFERRING PHYSICIAN: James Dominguez MD REASON FOR CONSULTATION: Small bowel obstruction and enteritis. HISTORY OF PRESENT ILLNESS: The patient is a pleasant 71-year-old man, well known to me from prior evaluation. He has been followed in the past for gastroesophageal reflux disease and irritable bowel syndrome with good control of reflux symptoms generally on 40 mg of famotidine b.i.d. as an outpatient and IBS with both diarrhea alternating with constipation at times, which has responded in part to dicyclomine as well as symptomatic control of diarrhea and constipation. He presented to the emergency department with complaints of abdominal pain that was diffuse for 3 days prior to admission and denies any recent suspect food ingestions, travel, or ill contacts. He denies any recent change in his bowel habits and was evaluated in the emergency department, where laboratory studies were obtained showing a white blood cell count of 15, with a hematocrit of 53. Chemistries showed a normal liver profile and imaging was obtained including a CT scan of the abdomen and pelvis, which is reviewed. This is interpreted as showing a small bowel obstruction, likely a dynamic, also noted was mesenteric fat stranding and intramural thickening of distal small bowel loops consistent with enteritis. The patient denies any recent fevers or chills. He has had previous evaluation including an upper GI series earlier this year, which questions some limited distensibility of the antral folds and a CT scan in March, which showed no small bowel abnormalities. He also underwent upper endoscopy and colonoscopy in 2018 with biopsies from the ileum showing no evidence of ileitis or Crohn disease. He did have several polyps and an upper endoscopy in November of 2018 was negative for H pylori. He did have changes of duodenitis. He has no personal or family history of Crohn disease.. PAST MEDICAL HISTORY: 1. Coronary artery disease, history of RI and stent placement. 2. Hypertension. 3. COPD. 4. Colon polyps. 5. IBS. 6. Hernia surgery. 7. Cholecystectomy. 8. Depression. 9. Tardive dyskinesia. CURRENT MEDICATIONS: His current medication list is reviewed in the chart. His IBS symptoms have been fairly well controlled on his dicyclomine and he had recently been started on amitriptyline as well as gabapentin, which also seemed to help. This was started for his psychiatric condition. ALLERGIES: MULTIPLE MEDICATION ALLERGIES REVIEWED. FAMILY HISTORY: This is negative for inflammatory bowel disease. SOCIAL HISTORY: There is no current tobacco, alcohol, or substance abuse. REVIEW OF SYSTEMS: SKIN: No pruritus. HEENT: Negative. CARDIOPULMONARY: He denies shortness of breath or chest pain. GASTROINTESTINAL: As above. GENITOURINARY: Negative. NEUROPSYCHIATRIC: Negative. PHYSICAL EXAMINATION: GENERAL: Shows a pleasant male, lying in bed. VITAL SIGNS: Stable. SKIN: Anicteric. HEENT: Shows no scleral icterus. An NG tube is in place, 900 mL has been drained since the tube was placed. NECK: Without lymphadenopathy or thyromegaly. LUNGS: Clear. HEART: Shows a regular rate and rhythm. S1, S2. No murmur. ABDOMEN: Soft without focal masses or tenderness. There is some mild distention. There is no guarding or rebound. Bowel sounds are present, but diminished. No organomegaly is noted. EXTREMITIES: Without edema. IMPRESSION: 1. Small bowel obstruction. 2. Enteritis. 3. We discussed the causes of small bowel obstruction today. Possible causes for this include adhesions from prior surgery and obstruction from primary small-bowel process. Given the fact that his CT scan did not show changes of enteritis on his previous evaluation, this seems relatively acute. Possible causes for this include an infectious enteritis or reactive enteritis as well as a primary presentation for inflammatory bowel disease, which seems less likely. At this point, I would recommend treating him as you are doing with NG suction and supportive care. Stool specimens will be obtained to rule out any treatable infectious etiology. He may need followup colonoscopy with small bowel biopsies after his acute episode resolves and if this is non-diagnostic, consideration could be given to capsule endoscopy. This was discussed with the patient. I would not recommend treatment with steroids at this time. Thanks for asking me to see him. I will follow him in the hospital with you. MD YANG Vale/MARIAM / [id number] MTDD
[2021-07-12] VITALS (7 sets, daily range): BP systolic 100–132; BP diastolic 62–68; PULSE 85–100; RESP 16–18; TEMP 36.3–37; O2SAT 93–96
[2021-07-12] MEDS: Dextrose 5 % and Lactated Ring 1,000 ML 125 ML IVCONT ×3 (01:35→19:47)
[2021-07-12 04:30] LABS: Basophils Percent Auto 0.2 % (0-2); Imm Gran Abs Auto 0.02 X10*3/uL (0.00-0.03); Imm Gran Pct Auto 0.2 % (0.0-0.4); Mean Corpuscular HGB Conc 33.3 g/dl (31.0-36.0); PLT CLUMP 1; Red Cell Distribution Width 12.7 % (11.0-16.0); SCAN SMEAR FLAG 1
[2021-07-12 04:32] LABS: Eosinophils Absolute Auto 0.2 X10*3/uL (0.0-0.4); Eosinophils Percent Auto 2.8 % (0-4); Hematocrit 39.6 % (42-52); Hemoglobin 13.2 g/dl (14.0-18.0); Lymphocytes Absolute Auto 2.3 X10*3/uL (1.2-4.9); Lymphocytes Percent Auto 27.1 % (20-40); Mean Corpuscular Hemoglobin 29.9 pg (27.0-33.0); Mean Corpuscular Volume 89.8 fL (80-98); Mean Platelet Volume 8.6 fL (9.4-12.4); Monocytes Absolute Auto 0.9 X10*3/uL (0.1-1.2); Neutrophils Percent Auto 58.7 % (45-73); Platelet Count 231 X10*3/uL (160-400); Red Blood Count 4.41 X10*6/uL (4.60-5.80); White Blood Count 8.5 X10*3/uL (4.8-10.8)
[2021-07-12 04:36] LABS: MANUAL DIFF FLAG NO
[2021-07-12 05:01] LABS: Anion Gap 12 (12-20); Blood Urea Nitrogen 17 mg/dL (9-16); Calcium 8.2 mg/dL (8.4-10.2); Carbon Dioxide 27 mmol/L (22-29); Chloride 105 mmol/L (96-108); Creatinine Clr Calc Pharmacy 77.5; Estimated Glomerular Filt Rate > 60; Glucose Fasting 105 mg/dL (60-99); Potassium 3.7 mmol/L (3.3-5.1); Sodium 140 mmol/L (135-145)
--- NOTE | 2021-07-12 07:27 | P.PNGS_ITS ---
Subjective Subjective Date of Service: 07/12/21 Interval history: Patient feels much improved today with decreased abdominal distention and no further abdominal pain. Nasogastric tube continues to function, draining gastric fluid as well as some bits of undigested food. He reports passing flatus last night and this morning but denies a bowel movement as of yet. Physical Exam Vital Signs: Vital Signs: Last Vital Signs Temp 97.4 F 07/12/21 03:43 Pulse 97 07/12/21 03:43 Resp 16 07/12/21 03:43 BP 111/67 07/12/21 03:43 Pulse Ox 95 07/12/21 03:43 Body Mass Index 25.2 Const: General: cooperative and no acute distress Nutritional Appearance: well nourished Orientation/consciousness: patient oriented x3 Limitations: no limitations Resp: Effort & Inspection: normal respiratory effort Auscultation: clear to auscultation bilaterally GI: Other: Much softer, nondistended, no tympany to percussion, nontender to palpation Neuro: General: patient oriented x3 Extrem: Other: No edema Procedures Date of Service Date of Service: 07/12/21 Progress Note: A&P Assessment and plan (1) Small bowel obstruction: Status: Acute Assessment and Plan: 71-year-old male patient presenting with a small-bowel obstruction perhaps due to adhesions being treated non operatively with nasogastric tube decompression and IV hydration. This morning he is much improved with decreased abdominal pain and no further nausea or vomiting. He is now passing flatus. We are awaiting return of bowel function. Will continue nasogastric tube decompression, NPO, IV fluids. Patient understands and agrees with the plan. Fall Risk Details Current Medications: Current Medications Acetaminophen (Acetaminophen 325 Mg Tablet) 650 mg PO QID PRN PRN Reason: headache, temp > 101 Albuterol Sulfate (Albuterol Sulfate 90 Mcg 18 Gm Inhaler) 2 puff INHALE Q4H PRN PRN Reason: Shortness of Breath Amlodipine Besylate (Amlodipine Besylate 10 Mg Tablet) 10 mg PO DAILY [facility]; Protocol Last Admin: 07/11/21 09:32 Dose: 10 mg Documented by: Fluticasone/Vilanterol (Fluticasone/Vilanterol 100/25 Blst.W.Dev) 1 puff INHALE RDAILY [facility] Gabapentin (Gabapentin 300 Mg Capsule) 300 mg PO TID [facility] Last Admin: 07/11/21 21:30 Dose: Not Given Documented by: Hydromorphone HCl (Hydromorphone Hcl 0.5 Mg/0.5 Ml Syringe) 0.5 mg IVPUSH Q2H PRN; Protocol PRN Reason: abdominal pain Last Admin: 07/11/21 06:50 Dose: 0.5 mg Documented by: Dextrose/Lactated Ringer's (D5lr) 1,000 mls @ 125 mls/hr IVCONT .Q8H [facility] Last Admin: 07/12/21 01:35 Dose: 125 mls/hr Documented by: Lorazepam (Lorazepam 1 Mg Tablet) 1 mg PO BID PRN PRN Reason: Anxiety Last Admin: 07/11/21 21:30 Dose: 1 mg Documented by: Nortriptyline HCl (Nortriptyline Hcl 25 Mg Capsule) 25 mg PO BEDTIME [facility] Last Admin: 07/11/21 21:31 Dose: Not Given Documented by: Ondansetron HCl (Ondansetron Hcl 4 Mg/2 Ml Vial) 4 mg IVPUSH Q8H PRN PRN Reason: Nausea Last Admin: 07/11/21 00:38 Dose: 4 mg Documented by: Pharmacy Consult (Consult Rx Perform Med Rec) 1 each MISCELLANE ONCE PRN PRN Reason: Consult order Pharmacy Consult (Consult Rx Perform Med Rec) 1 each MISCELLANE ONCE PRN PRN Reason: Consult order Quetiapine Fumarate (Quetiapine Fumarate 25 Mg Tablet) 12.5 mg PO BID PRN PRN Reason: anxiety Sodium Chloride (0.9 % Sodium Chloride Flush 3 Ml Syringe) 3 ml IVFLUSH QSHIFT [facility] Last Admin: 07/12/21 00:33 Dose: Not Given Documented by: Tiotropium [place] (Tiotropium [place] 18 Mcg Cap.W.Dev) 1 puff INHALE RDAILY [facility] Time Spent With Patient Time: Total time spent is greater than 50% in coordination of care (as documented) at patient's floor/unit and/or counseling patient: Time with patient: 15 - 24 minutes Quality Stroke Does the patient have a stroke diagnosis?: No VTE Prior VTE?: No VTE Risk Level:: Surgical - moderate VTE Device Contraindication: N/A - Device Ordered VTE Drug Contraindication: Treatment Not Indicated
[2021-07-12] MEDS: Fluticasone/Vilanterol 100/25 BLST.W.DEV 1 PUFF INHALE (08:59)
[2021-07-12] MEDS: amLODIPine Besylate 10 MG TABLET PO (10:37)
--- NOTE | 2021-07-12 12:11 | HO.PM.IMPN ---
Subjective Subjective Date of Service: 07/12/21 Interval History: seen and examined reports feeling better today with less abd distension and pain reports flatus but no BM NG continues to drain Review of Systems negative except above Physical Exam Vital Signs: Vital Signs: Last Vital Signs Temp 98.2 F 07/12/21 11:10 Pulse 92 07/12/21 11:10 Resp 18 07/12/21 11:10 BP 100/62 07/12/21 11:10 Pulse Ox 93 07/12/21 11:10 Body Mass Index 25.2 Const: Other: General - no acute distress, appears comfortable Cardiovascular - regular rate and rhythm, S1-S2 Lungs - normal respiratory effort, clear to auscultation bilaterally, no wheezing Abdomen - soft without guarding; NG with bile/dark drainage Extremities - no edema bilaterally Neuro - awake and alert, no focal deficits Objective Data Active Medications Acetaminophen (Acetaminophen 325 Mg Tablet) 650 mg PO QID PRN PRN Reason: headache, temp > 101 Albuterol Sulfate (Albuterol Sulfate 90 Mcg 18 Gm Inhaler) 2 puff INHALE Q4H PRN PRN Reason: Shortness of Breath Fluticasone/Vilanterol (Fluticasone/Vilanterol 100/25 Blst.W.Dev) 1 puff INHALE RDAILY [facility] Last Admin: 07/12/21 08:59 Dose: 1 puff Documented by: MARIA ALEJANDRA Gabapentin (Gabapentin 300 Mg Capsule) 300 mg PO TID [facility] Last Admin: 07/12/21 08:06 Dose: Not Given Documented by: TONYA Non-Admin Reason: Patient Refused Hydromorphone HCl (Hydromorphone Hcl 0.5 Mg/0.5 Ml Syringe) 0.5 mg IVPUSH Q2H PRN; Protocol PRN Reason: abdominal pain Last Admin: 07/11/21 06:50 Dose: 0.5 mg Documented by: SHAWANDA Dextrose/Lactated Ringer's (D5lr) 1,000 mls @ 125 mls/hr IVCONT .Q8H [facility] Last Admin: 07/12/21 10:39 Dose: 125 mls/hr Documented by: TONYA Lorazepam (Lorazepam 1 Mg Tablet) 1 mg PO BID PRN PRN Reason: Anxiety Last Admin: 07/11/21 21:30 Dose: 1 mg Documented by: VISHNU Nortriptyline HCl (Nortriptyline Hcl 25 Mg Capsule) 25 mg PO BEDTIME [facility] Last Admin: 07/11/21 21:31 Dose: Not Given Documented by: VISHNU Non-Admin Reason: NPO Ondansetron HCl (Ondansetron Hcl 4 Mg/2 Ml Vial) 4 mg IVPUSH Q8H PRN PRN Reason: Nausea Last Admin: 07/11/21 00:38 Dose: 4 mg Documented by: SHAWANDA Pantoprazole Sodium (Pantoprazole Sodium 40 Mg/10 Ml Vial) 40 mg IVPUSH BID@0630,1630 [facility] Pharmacy Consult (Consult Rx Perform Med Rec) 1 each MISCELLANE ONCE PRN PRN Reason: Consult order Pharmacy Consult (Consult Rx Perform Med Rec) 1 each MISCELLANE ONCE PRN PRN Reason: Consult order Quetiapine Fumarate (Quetiapine Fumarate 25 Mg Tablet) 12.5 mg PO BID PRN PRN Reason: anxiety Sodium Chloride (0.9 % Sodium Chloride Flush 3 Ml Syringe) 3 ml IVFLUSH QSHIFT [facility] Last Admin: 07/12/21 08:05 Dose: Not Given Documented by: TONYA Non-Admin Reason: IV Running Tiotropium [place] (Tiotropium [place] 18 Mcg Cap.W.Dev) 1 puff INHALE RDAILY [facility] Last Admin: 07/12/21 08:59 Dose: 1 puff Documented by: MARIA ALEJANDRA Labs CBC & Chem 7: 07/12/21 04:12 07/12/21 04:12 Labs: Laboratory Results - last 24 hr 07/12/21 07/12/21 04:12 04:12 MCV 89.8 MCH 29.9 MCHC 33.3 RDW 12.7 Plt Count 231 MPV 8.6 L Immature Gran % (Auto) 0.2 Neut % (Auto) 58.7 Lymph % (Auto) 27.1 [place] % (Auto) 11.0 Eos % (Auto) 2.8 Baso % (Auto) 0.2 Lymph # (Auto) 2.3 [place] # (Auto) 0.9 Eos # (Auto) 0.2 Baso # (Auto) 0.0 Abs Immat Gran (auto) 0.02 Absolute Neuts (auto) 5.0 Absolute Nucleated RBC 0.000 Nucleated RBC % (auto) 0.0 Anion Gap 12 Estim Creat Clear Calc 77.5 Estimated GFR > 60 Fasting Glucose 105 H Calcium 8.2 L D Microbiology Microbiology Results: Microbiology 07/10/21 20:55 Blood Culture - Preliminary Blood - Venous No growth after 24 hours. 07/10/21 19:28 Blood Culture - Preliminary Blood - Venous No growth after 24 hours. Assessment and Plan (1) Small bowel obstruction: Status: Acute Assessment and Plan: This is a 71 yo M with admitted for SBO 1. SBO clinically appears to be improving his NG has some dark drainage (almost appears coffee grounds) -- will give empiric PPI in the mean time; his h/h has droppped from admission although I suspect he was hemoconcentrated when he arrived. will repeat another h/h now otherwise, mgmt per gen surg; GI on the case as well 2. HTN bp on the softer side hold norvsac continue IVF as you are doing 3. Depression denies SI but reportedly presented to the hospital for voluntary admission to psych will need BHN/Crisis clearance once medically stable 4. History of COPD no in exacerbation continue inhalers Will follow with you. Quality Stroke Does the patient have a stroke diagnosis?: No VTE Prior VTE?: No VTE Risk Level:: Surgical - moderate VTE Device Contraindication: N/A - Device Ordered VTE Drug Contraindication: Treatment Not Indicated
[2021-07-12 12:40] LABS: Hematocrit 37.6 % (42-52); Hemoglobin 12.7 g/dl (14.0-18.0)
--- NOTE | 2021-07-12 12:54 | P.EN_ITS ---
Event Note Date of Service: 07/12/21 Event Note: This music writer contacted providers to report that I have been in cont act with CARE team this am regarding patient. CARE team will assess for needed level of care once he is medically cleared. If you need any further assistance, please let us know. Thank you.
--- NOTE | 2021-07-12 12:54 | PM.EVENT ---
Event Note Date of Service: 07/12/21 Event Note: This job specification writer contacted providers to report that I have been in contact with CARE team this am regarding patient. CARE team will assess for needed level of care once he is medically cleared. If you need any further assistance, please let us know. Thank you.
--- NOTE | 2021-07-12 15:30 | MHC.CM.PN ---
EMR REVIEWED, PT CONT'S W/NG TUBE DECOMPRESSION AND IV FLUIDS, PT REPORTING DECREASED ABD PAIN, PASSING GAS HOWEVER NO BM OF YET, ANTICIPATE D/C 1-2 DAYS, CM WILL CONT TO FOLLOW.
[2021-07-12] MEDS: Pantoprazole Sodium 40 MG/10 ML VIAL IVPUSH (16:11)
--- NOTE | 2021-07-12 19:19 | PC.NURSE ---
[address] [facility] patent. draining [place] color drainage. OOB to chair today. Denies pain, feels weak.
[2021-07-12] MEDS: LORazepam 1 MG TABLET PO (19:47)
[2021-07-13] MEDS: Dextrose 5 % and Lactated Ring 1,000 ML 125 ML IVCONT ×3 (01:09→20:56)
[2021-07-13 03:22] VITALS: BP 124/73; PULSE 90; RESP 14; TEMP 37.1; O2SAT 94
[2021-07-13] MEDS: Pantoprazole Sodium 40 MG/10 ML VIAL IVPUSH ×2 (05:26→17:25)
[2021-07-13 07:15] VITALS: BP 132/79; PULSE 93; RESP 16; TEMP 37.1; O2SAT 95
--- NOTE | 2021-07-13 07:45 | PM.PNGS ---
Subjective Subjective Date of Service: 07/13/21 <Vanda Taylor PA-C - Last Filed: 07/13/21 07:50> 07/13/21 <James Dominguez MD - Last Filed: 07/13/21 08:25> Interval history: Feeling better this morning. Pain has significantly improved as well as bloating. Continues to pass flatus. No BM yet. Denies nausea. Was OOB to chair yesterday. <Vanda Taylor PA-C - Last Filed: 07/13/21 07:50> Physical Exam Vital Signs: Vital Signs: Last Vital Signs Temp 98.8 F 07/13/21 07:15 Pulse 93 07/13/21 07:15 Resp 16 07/13/21 07:15 BP 132/79 07/13/21 07:15 Pulse Ox 95 07/13/21 07:15 Body Mass Index 25.2 <Vanda Taylor PA-C - Last Filed: 07/13/21 07:50> Const: General: comfortable, no acute distress and alert <Vanda Taylor PA-C - Last Filed: 07/13/21 07:50> Orientation/consciousness: patient oriented x3 <Vanda Taylor PA-C - Last Filed: 07/13/21 07:50> HENMT: Other: NGT in place right nare <Vanda Taylor PA-C - Last Filed: 07/13/21 07:50> GI: Inspection: Yes distended (mild) <Vanda Taylor PA-C - Last Filed: 07/13/21 07:50> Palpation (GI): Soft to palpation and Tenderness to palpation present (GI) (mild, diffuse, improved) <Vanda Taylor PA-C - Last Filed: 07/13/21 07:50> Skin: General skin exam: no rashes or lesions noted <Vanda Taylor PA-C - Last Filed: 07/13/21 07:50> Neuro: General: patient oriented x3 <Vanda Taylor PA-C - Last Filed: 07/13/21 07:50> Procedures Date of Service Date of Service: 07/13/21 <Vanda Taylor PA-C - Last Filed: 07/13/21 07:50> Progress Note: A&P Assessment and plan (1) Small bowel obstruction: Status: Acute <MARYSE Mckeon Last Filed: 07/13/21 07:50> (2) Depression: Status: Acute <MARYSE Mckeon Last Filed: 07/13/21 07:50> (3) IBS (irritable bowel syndrome): Status: Acute <Vanda Taylor PA-C - Last Filed: 07/13/21 07:50> Assessment and Plan: 71 year old male admitted with SBO. Appears to be resolving- with some evidence of return of GI function and improvement in symptoms. NGT output is decreasing. Abd less distended, mild tenderness. WIll clamp NGT for 4 hrs, check residual. Unclamp sooner if develops worsening abd pain, nausea, vomiting. Encouraged OOB and ambulation today. Patient comfortable with plan. Cont gentle IVF. <Vanda Taylor PA-C - Last Filed: 07/13/21 07:50> 71 year old male admitted with SBO. Appears to be resolving- with some evidence of return of GI function and improvement in symptoms. NGT output is decreasing. Abd less distended, mild tenderness. WIll clamp NGT for 4 hrs, check residual. Unclamp sooner if develops worsening abd pain, nausea, vomiting. Encouraged OOB and ambulation today. Patient comfortable with plan. Cont gentle IVF. Patient independently evaluated and examined today. He is feeling improved with minimal abdominal pain. Abdomen is much softer with no tenderness to deep palpation. He continues to pass flatus but no bowel movement yet. Agree with the above assessment and plan. Will clamp NG tube and check residuals. NG tube to be removed if minimal residuals. <James Dominguez MD - Last Filed: 07/13/21 08:25> Fall Risk Details Current Medications: Current Medications Acetaminophen (Acetaminophen 325 Mg Tablet) 650 mg PO QID PRN PRN Reason: headache, temp > 101 Albuterol Sulfate (Albuterol Sulfate 90 Mcg 18 Gm Inhaler) 2 puff INHALE Q4H PRN PRN Reason: Shortness of Breath Fluticasone/Vilanterol (Fluticasone/Vilanterol 100/25 Blst.W.Dev) 1 puff INHALE RDAILY [facility] Last Admin: 07/12/21 08:59 Dose: 1 puff Documented by: Gabapentin (Gabapentin 300 Mg Capsule) 300 mg PO TID [facility] Last Admin: 07/12/21 08:06 Dose: Not Given Documented by: Hydromorphone HCl (Hydromorphone Hcl 0.5 Mg/0.5 Ml Syringe) 0.5 mg IVPUSH Q2H PRN; Protocol PRN Reason: abdominal pain Last Admin: 07/11/21 06:50 Dose: 0.5 mg Documented by: Dextrose/Lactated Ringer's (D5lr) 1,000 mls @ 125 mls/hr IVCONT .Q8H [facility] Last Admin: 07/13/21 01:09 Dose: 125 mls/hr Documented by: Lorazepam (Lorazepam 1 Mg Tablet) 1 mg PO BID PRN PRN Reason: Anxiety Last Admin: 07/12/21 19:47 Dose: 1 mg Documented by: Nortriptyline HCl (Nortriptyline Hcl 25 Mg Capsule) 25 mg PO BEDTIME [facility] Last Admin: 07/12/21 19:47 Dose: Not Given Documented by: Ondansetron HCl (Ondansetron Hcl 4 Mg/2 Ml Vial) 4 mg IVPUSH Q8H PRN PRN Reason: Nausea Last Admin: 07/11/21 00:38 Dose: 4 mg Documented by: Pantoprazole Sodium (Pantoprazole Sodium 40 Mg/10 Ml Vial) 40 mg IVPUSH BID@0630,1630 [facility] Last Admin: 07/13/21 05:26 Dose: 40 mg Documented by: Pharmacy Consult (Consult Rx Perform Med Rec) 1 each MISCELLANE ONCE PRN PRN Reason: Consult order Pharmacy Consult (Consult Rx Perform Med Rec) 1 each MISCELLANE ONCE PRN PRN Reason: Consult order Quetiapine Fumarate (Quetiapine Fumarate 25 Mg Tablet) 12.5 mg PO BID PRN PRN Reason: anxiety Sodium Chloride (0.9 % Sodium Chloride Flush 3 Ml Syringe) 3 ml IVFLUSH QSHIFT [facility] Last Admin: 07/12/21 19:47 Dose: Not Given Documented by: Tiotropium [place] (Tiotropium [place] 18 Mcg Cap.W.Dev) 1 puff INHALE RDAILY [facility] Last Admin: 07/12/21 08:59 Dose: 1 puff Documented by: <MARYSE Mckeon Last Filed: 07/13/21 07:50> Time Spent With Patient Time: Total time spent is greater than 50% in coordination of care (as documented) at patient's floor/unit and/or counseling patient: <Vanda Taylor PA-C - Last Filed: 07/13/21 07:50> Time with patient: 15 - 24 minutes <Vanda Taylor PA-C - Last Filed: 07/13/21 07:50> Quality Stroke Does the patient have a stroke diagnosis?: No <Vanda Taylor PA-C - Last Filed: 07/13/21 07:50> VTE Prior VTE?: No <Vanda Taylor PA-C - Last Filed: 07/13/21 07:50> VTE Risk Level:: Surgical - moderate <MARYSE Mckeon Last Filed: 07/13/21 07:50> VTE Device Contraindication: N/A - Device Ordered <MARYSE Mckeon Last Filed: 07/13/21 07:50> VTE Drug Contraindication: Treatment Not Indicated <MARYSE Mckeon Last Filed: 07/13/21 07:50>
[2021-07-13] MEDS: Fluticasone/Vilanterol 100/25 BLST.W.DEV 1 PUFF INHALE (08:12)
[2021-07-13 08:15] VITALS: PULSE 93; O2SAT 95
--- NOTE | 2021-07-13 10:04 | P.PNIM_ITS ---
Subjective Subjective Date of Service: 07/13/21 Interval History: seen and examined feeling slowly better, passing flatus still with some abd pain denies BM d/w him re: mental health; reports he has been feeling this way due to his abdominal symptoms, but currently denies any SI Review of Systems negative except interval history Physical Exam Vital Signs: Vital Signs: Last Vital Signs Temp 98.8 F 07/13/21 07:15 Pulse 93 07/13/21 07:15 Resp 16 07/13/21 07:15 BP 132/79 07/13/21 07:15 Pulse Ox 95 07/13/21 07:15 Body Mass Index 25.2 Const: Other: General - no acute distress, appears comfortable Cardiovascular - regular rate and rhythm, S1-S2 Lungs - normal respiratory effort, clear to auscultation bilaterally, no wheezing Abdomen - soft without guarding; NG with bilious drainange Extremities - no edema bilaterally Neuro - awake and alert, no focal deficits Objective Data Active Medications Acetaminophen (Acetaminophen 325 Mg Tablet) 650 mg PO QID PRN PRN Reason: headache, temp > 101 Albuterol Sulfate (Albuterol Sulfate 90 Mcg 18 Gm Inhaler) 2 puff INHALE Q4H PRN PRN Reason: Shortness of Breath Fluticasone/Vilanterol (Fluticasone/Vilanterol 100/25 Blst.W.Dev) 1 puff INHALE RDAILY [facility] Last Admin: 07/13/21 08:12 Dose: 1 puff Documented by: KENIA Gabapentin (Gabapentin 300 Mg Capsule) 300 mg PO TID [facility] Last Admin: 07/12/21 08:06 Dose: Not Given Documented by: TONYA Non-Admin Reason: Patient Refused Hydromorphone HCl (Hydromorphone Hcl 0.5 Mg/0.5 Ml Syringe) 0.5 mg IVPUSH Q2H PRN; Protocol PRN Reason: abdominal pain Last Admin: 07/11/21 06:50 Dose: 0.5 mg Documented by: SHAWANDA Dextrose/Lactated Ringer's (D5lr) 1,000 mls @ 125 mls/hr IVCONT .Q8H [facility] Last Infusion: 07/13/21 09:39 Dose: 125 mls/hr Documented by: HIEN Lorazepam (Lorazepam 1 Mg Tablet) 1 mg PO BID PRN PRN Reason: Anxiety Last Admin: 07/12/21 19:47 Dose: 1 mg Documented by: OSMAN Nortriptyline HCl (Nortriptyline Hcl 25 Mg Capsule) 25 mg PO BEDTIME [facility] Last Admin: 07/12/21 19:47 Dose: Not Given Documented by: OSMAN Non-Admin Reason: Patient Refused Ondansetron HCl (Ondansetron Hcl 4 Mg/2 Ml Vial) 4 mg IVPUSH Q8H PRN PRN Reason: Nausea Last Admin: 07/11/21 00:38 Dose: 4 mg Documented by: SHAWANDA Pantoprazole Sodium (Pantoprazole Sodium 40 Mg/10 Ml Vial) 40 mg IVPUSH BID@0630,1630 [facility] Last Admin: 07/13/21 05:26 Dose: 40 mg Documented by: LE Pharmacy Consult (Consult Rx Perform Med Rec) 1 each MISCELLANE ONCE PRN PRN Reason: Consult order Pharmacy Consult (Consult Rx Perform Med Rec) 1 each MISCELLANE ONCE PRN PRN Reason: Consult order Quetiapine Fumarate (Quetiapine Fumarate 25 Mg Tablet) 12.5 mg PO BID PRN PRN Reason: anxiety Sodium Chloride (0.9 % Sodium Chloride Flush 3 Ml Syringe) 3 ml IVFLUSH QSHIFT [facility] Last Admin: 07/13/21 07:53 Dose: Not Given Documented by: HIEN Non-Admin Reason: IV Running Tiotropium [place] (Tiotropium [place] 18 Mcg Cap.W.Dev) 1 puff INHALE RDAILY [facility] Last Admin: 07/13/21 08:12 Dose: 1 puff Documented by: KENIA Labs CBC & Chem 7: 07/12/21 12:23 07/12/21 04:12 Microbiology Microbiology Results: Microbiology 07/10/21 20:55 Blood Culture - Preliminary Blood - Venous No growth after 48 hours. 07/10/21 19:28 Blood Culture - Preliminary Blood - Venous No growth after 48 hours. Assessment and Plan (1) Small bowel obstruction: Status: Acute Assessment and Plan: This is a 71 yo M with admitted for SBO 1. SBO NG with bilious drainage now continue IV PPI today, will recheck h/h today 2. HTN hold antihypertensives for now 3. Depression denies SI but reportedly presented to the hospital for voluntary admission to psych will need BHN/Crisis clearance once medically stable 4. History of COPD no in exacerbation continue inhalers will follow Quality Stroke Does the patient have a stroke diagnosis?: No VTE Prior VTE?: No VTE Risk Level:: Surgical - moderate VTE Device Contraindication: N/A - Device Ordered VTE Drug Contraindication: Treatment Not Indicated
[2021-07-13 10:32] LABS: Hematocrit 37.5 % (42-52); Mean Corpuscular HGB Conc 34.7 g/dl (31.0-36.0); Mean Corpuscular Hemoglobin 30.8 pg (27.0-33.0); Mean Corpuscular Volume 88.9 fL (80-98); Mean Platelet Volume 8.7 fL (9.4-12.4); Platelet Count 193 X10*3/uL (160-400); Red Blood Count 4.22 X10*6/uL (4.60-5.80); Red Cell Distribution Width 12.3 % (11.0-16.0); White Blood Count 8.4 X10*3/uL (4.8-10.8)
[2021-07-13 11:03] LABS: Anion Gap 12 (12-20); Blood Urea Nitrogen 5 mg/dL (9-16); Calcium 8.5 mg/dL (8.4-10.2); Carbon Dioxide 28 mmol/L (22-29); Chloride 104 mmol/L (96-108); Creatinine Clr Calc Pharmacy 85.7; Estimated Glomerular Filt Rate > 60; Glucose Random 107 mg/dL (60-115); Potassium 3.5 mmol/L (3.3-5.1); Sodium 140 mmol/L (135-145)
[2021-07-13 11:24] VITALS: BP 139/77; PULSE 89; RESP 18; TEMP 36.7; O2SAT 95
--- NOTE | 2021-07-13 13:03 | P.PNGI_ITS ---
Subjective Subjective Date of Service: 07/13/21 Critical Care Time (minutes): 0 Comment: no bloating since NGT clamped Physical Exam Vital Signs: Vital Signs: Last Vital Signs Temp 98.1 F 07/13/21 11:24 Pulse 89 07/13/21 11:24 Resp 18 07/13/21 11:24 BP 139/77 07/13/21 11:24 Pulse Ox 95 07/13/21 11:24 Body Mass Index 25.2 Const: General: cooperative HENMT: Other: NGT in place, clamped GI: Other: abdomen is soft and nontender, bowel sounds are present Objective Data Labs CBC & Chem 7: 07/13/21 10:08 07/13/21 10:08 Procedures Date of Service Date of Service: 07/13/21 Progress Note: A&P Assessment and plan (1) Small bowel obstruction: Status: Acute Assessment and Plan: appears clinically improved once NGT is out, start diet. Fall Risk Details Current Medications: Current Medications Acetaminophen (Acetaminophen 325 Mg Tablet) 650 mg PO QID PRN PRN Reason: headache, temp > 101 Albuterol Sulfate (Albuterol Sulfate 90 Mcg 18 Gm Inhaler) 2 puff INHALE Q4H PRN PRN Reason: Shortness of Breath Fluticasone/Vilanterol (Fluticasone/Vilanterol 100/25 Blst.W.Dev) 1 puff INHALE RDAILY [facility] Last Admin: 07/13/21 08:12 Dose: 1 puff Documented by: Gabapentin (Gabapentin 300 Mg Capsule) 300 mg PO TID [facility] Last Admin: 07/12/21 08:06 Dose: Not Given Documented by: Hydromorphone HCl (Hydromorphone Hcl 0.5 Mg/0.5 Ml Syringe) 0.5 mg IVPUSH Q2H PRN; Protocol PRN Reason: abdominal pain Last Admin: 07/11/21 06:50 Dose: 0.5 mg Documented by: Dextrose/Lactated Ringer's (D5lr) 1,000 mls @ 125 mls/hr IVCONT .Q8H [facility] Last Admin: 07/13/21 11:01 Dose: 125 mls/hr Documented by: Lorazepam (Lorazepam 1 Mg Tablet) 1 mg PO BID PRN PRN Reason: Anxiety Last Admin: 07/12/21 19:47 Dose: 1 mg Documented by: Nortriptyline HCl (Nortriptyline Hcl 25 Mg Capsule) 25 mg PO BEDTIME [facility] Last Admin: 07/12/21 19:47 Dose: Not Given Documented by: Ondansetron HCl (Ondansetron Hcl 4 Mg/2 Ml Vial) 4 mg IVPUSH Q8H PRN PRN Reason: Nausea Last Admin: 07/11/21 00:38 Dose: 4 mg Documented by: Pantoprazole Sodium (Pantoprazole Sodium 40 Mg/10 Ml Vial) 40 mg IVPUSH BID@0630,1630 [facility] Last Admin: 07/13/21 05:26 Dose: 40 mg Documented by: Pharmacy Consult (Consult Rx Perform Med Rec) 1 each MISCELLANE ONCE PRN PRN Reason: Consult order Pharmacy Consult (Consult Rx Perform Med Rec) 1 each MISCELLANE ONCE PRN PRN Reason: Consult order Quetiapine Fumarate (Quetiapine Fumarate 25 Mg Tablet) 12.5 mg PO BID PRN PRN Reason: anxiety Sodium Chloride (0.9 % Sodium Chloride Flush 3 Ml Syringe) 3 ml IVFLUSH QSHIFT [facility] Last Admin: 07/13/21 07:53 Dose: Not Given Documented by: Tiotropium [place] (Tiotropium [place] 18 Mcg Cap.W.Dev) 1 puff INHALE RDAILY [facility] Last Admin: 07/13/21 08:12 Dose: 1 puff Documented by: Time Spent With Patient Time: Total time spent is greater than 50% in coordination of care (as documented) at patient's floor/unit and/or counseling patient: Time with patient: less than 15 minutes Quality Stroke Does the patient have a stroke diagnosis?: No VTE Prior VTE?: No VTE Risk Level:: Surgical - moderate VTE Device Contraindication: N/A - Device Ordered VTE Drug Contraindication: Treatment Not Indicated
--- NOTE | 2021-07-13 13:17 | MHC.CLN ---
Addendum entered by Ginger Rhodes, LATASHA 07/13/21 13:24: agree with provider's assessment Original Note: F/U PT IS AT INCREASED NUTRITION RISK R/T 10% SIGNIFICANT WT LOSS X 3 MONTHS PT ADVANCED TO CLEAR LIQUID DIET RECOMMEND ENSURE CLEAR SUPPLEMENT BID TO INCREASE KCALS MONITOR SUPPLEMENT ACCEPTANCE
[2021-07-13 14:49] LABS: Leukocytes Stool Qualitative NEGATIVE (NEGATIVE)
[2021-07-13 15:34] VITALS: BP 121/81; PULSE 89; RESP 18; TEMP 36.6; O2SAT 98
[2021-07-13 19:55] VITALS: BP 130/82; PULSE 92; RESP 18; TEMP 36.6; O2SAT 98
[2021-07-13] MEDS: LORazepam 1 MG TABLET PO (21:01)
[2021-07-14] VITALS (8 sets, daily range): BP systolic 111–148; BP diastolic 68–84; PULSE 81–93; RESP 16–18; TEMP 36.3–37.4; O2SAT 94–96
[2021-07-14] MEDS: Dextrose 5 % and Lactated Ring 1,000 ML 125 ML IVCONT ×3 (05:53→21:17)
[2021-07-14] MEDS: Pantoprazole Sodium 40 MG/10 ML VIAL IVPUSH ×2 (06:20→16:30)
[2021-07-14] MEDS: Fluticasone/Vilanterol 100/25 BLST.W.DEV 1 PUFF INHALE (07:52)
--- NOTE | 2021-07-14 08:02 | PM.PNGS ---
Subjective Subjective Date of Service: 07/14/21 <Vanda Taylor PA-C - Last Filed: 07/14/21 08:11> 07/14/21 <James Dominguez MD - Last Filed: 07/14/21 08:17> Interval history: No residual after clamping yesterday. NGT removed and started on clear liquids. He denies any abdominal pain, nausea this morning. Does c/o sore throat. Tolerating clear liquids. Feels hungry but is nervous to eat. Passing flatus and had BM this morning. Was scheduled for voluntary inpatient psych admission but he reports that he does not feel he needs it anymore. <Vanda Taylor PA-C - Last Filed: 07/14/21 08:11> Physical Exam Vital Signs: Vital Signs: Last Vital Signs Temp 98.4 F 07/14/21 07:52 Pulse 84 07/14/21 07:52 Resp 18 07/14/21 07:52 BP 111/72 07/14/21 07:52 Pulse Ox 94 07/14/21 07:52 Body Mass Index 25.2 <Vanda Taylor PA-C - Last Filed: 07/14/21 08:11> Const: General: healthy appearing, comfortable, no acute distress and alert <Vanda Taylor PA-C - Last Filed: 07/14/21 08:11> Orientation/consciousness: patient oriented x3 <Vanda Taylor PA-C - Last Filed: 07/14/21 08:11> Resp: Effort & Inspection: normal respiratory effort <MARYSE Mckeon Last Filed: 07/14/21 08:11> GI: Inspection: No distended <MARYSE Mckeon Last Filed: 07/14/21 08:11> Palpation (GI): Soft to palpation, nontender, no guarding and not rigid <MARYSE Mckeon Last Filed: 07/14/21 08:11> Skin: Other: warm and dry <MARYSE Mckeon Last Filed: 07/14/21 08:11> General skin exam: no rashes or lesions noted <MARYSE Mckeon Last Filed: 07/14/21 08:11> Neuro: General: patient oriented x3 <MARYSE Mckeon Last Filed: 07/14/21 08:11> Procedures Date of Service Date of Service: 07/14/21 <MARYSE Mckeon Last Filed: 07/14/21 08:11> Progress Note: A&P Assessment and plan (1) Small bowel obstruction: Status: Acute <MARYSE Mckeon Last Filed: 07/14/21 08:11> (2) Depression: Status: Acute <MARYSE Mckeon Last Filed: 07/14/21 08:11> (3) IBS (irritable bowel syndrome): Status: Acute <MARYSE Mckeon Last Filed: 07/14/21 08:11> Assessment and Plan: 71 year old male admitted with SBO. Appears to be resolved as he is asymptomatic and has full return of GI function. Abd is nondistended, remains very soft and non tender. Will advance to solid diet. If tolerating, stable for discharge. Will ask psych to see for dispo planning. Given the relatively quick resolution of SBO, likely secondary to adhesions. He is to f/u with Dr. May in office for possible further evaluation given acute changes on CT scan. <Vanda Taylor PA-C - Last Filed: 07/14/21 08:11> Fall Risk Details Current Medications: Current Medications Acetaminophen (Acetaminophen 325 Mg Tablet) 650 mg PO QID PRN PRN Reason: headache, temp > 101 Albuterol Sulfate (Albuterol Sulfate 90 Mcg 18 Gm Inhaler) 2 puff INHALE Q4H PRN PRN Reason: Shortness of Breath Fluticasone/Vilanterol (Fluticasone/Vilanterol 100/25 Blst.W.Dev) 1 puff INHALE RDAILY [facility] Last Admin: 07/14/21 07:52 Dose: 1 puff Documented by: Gabapentin (Gabapentin 300 Mg Capsule) 300 mg PO TID [facility] Last Admin: 07/12/21 08:06 Dose: Not Given Documented by: Hydromorphone HCl (Hydromorphone Hcl 0.5 Mg/0.5 Ml Syringe) 0.5 mg IVPUSH Q2H PRN; Protocol PRN Reason: abdominal pain Last Admin: 07/11/21 06:50 Dose: 0.5 mg Documented by: Dextrose/Lactated Ringer's (D5lr) 1,000 mls @ 125 mls/hr IVCONT .Q8H [facility] Last Admin: 07/14/21 05:53 Dose: 125 mls/hr Documented by: Lorazepam (Lorazepam 1 Mg Tablet) 1 mg PO BID PRN PRN Reason: Anxiety Last Admin: 07/13/21 21:01 Dose: 1 mg Documented by: Nortriptyline HCl (Nortriptyline Hcl 25 Mg Capsule) 25 mg PO BEDTIME [facility] Last Admin: 07/13/21 21:03 Dose: Not Given Documented by: Ondansetron HCl (Ondansetron Hcl 4 Mg/2 Ml Vial) 4 mg IVPUSH Q8H PRN PRN Reason: Nausea Last Admin: 07/11/21 00:38 Dose: 4 mg Documented by: Pantoprazole Sodium (Pantoprazole Sodium 40 Mg/10 Ml Vial) 40 mg IVPUSH BID@0630,1630 [facility] Last Admin: 07/14/21 06:20 Dose: 40 mg Documented by: Pharmacy Consult (Consult Rx Perform Med Rec) 1 each MISCELLANE ONCE PRN PRN Reason: Consult order Pharmacy Consult (Consult Rx Perform Med Rec) 1 each MISCELLANE ONCE PRN PRN Reason: Consult order Quetiapine Fumarate (Quetiapine Fumarate 25 Mg Tablet) 12.5 mg PO BID PRN PRN Reason: anxiety Sodium Chloride (0.9 % Sodium Chloride Flush 3 Ml Syringe) 3 ml IVFLUSH QSHIFT [facility] Last Admin: 07/14/21 01:47 Dose: Not Given Documented by: Tiotropium [place] (Tiotropium [place] 18 Mcg Cap.W.Dev) 1 puff INHALE RDAILY [facility] Last Admin: 07/14/21 07:52 Dose: 1 puff Documented by: <Vanda Taylor PA-C - Last Filed: 07/14/21 08:11> Time Spent With Patient Time: Total time spent is greater than 50% in coordination of care (as documented) at patient's floor/unit and/or counseling patient: <Vanda Taylor PA-C - Last Filed: 07/14/21 08:11> Time with patient: 15 - 24 minutes <Vanda Taylor PA-C - Last Filed: 07/14/21 08:11> Quality Stroke Does the patient have a stroke diagnosis?: No <Vanda Taylor PA-C - Last Filed: 07/14/21 08:11> VTE Prior VTE?: No <Vanda Taylor PA-C - Last Filed: 07/14/21 08:11> VTE Risk Level:: Surgical - moderate <Vanda Taylor PA-C - Last Filed: 07/14/21 08:11> VTE Device Contraindication: N/A - Device Ordered <Vanda Taylor PA-C - Last Filed: 07/14/21 08:11> VTE Drug Contraindication: Treatment Not Indicated <Vanda Taylor PA-C - Last Filed: 07/14/21 08:11>
--- NOTE | 2021-07-14 08:11 | PM.PNGS ---
Subjective Subjective Date of Service: 07/14/21 Patient reports: feels better and bowel movement Interval history: tolerating clear liquids, Physical Exam Vital Signs: Vital Signs: Last Vital Signs Temp 98.4 F 07/14/21 07:52 Pulse 84 07/14/21 07:52 Resp 18 07/14/21 07:52 BP 111/72 07/14/21 07:52 Pulse Ox 94 07/14/21 07:52 Body Mass Index 25.2 Const: General: cooperative and no acute distress Nutritional Appearance: well nourished Orientation/consciousness: patient oriented x3 Limitations: no limitations Resp: Effort & Inspection: normal respiratory effort GI: Inspection: Yes normal to inspection Palpation (GI): Soft to palpation, nontender, no guarding and not rigid Percussion: Yes normal to percussion Auscultation: normal bowel sounds Neuro: General: patient oriented x3 Extrem: General: Yes normal to inspection Procedures Date of Service Date of Service: 07/14/21 Progress Note: A&P Assessment and plan (1) Small bowel obstruction: Status: Acute Assessment and Plan: 71-year-old male presenting with complaints of abdominal pain and distension associated with nausea and vomiting determined to have a small-bowel obstruction. He was admitted for nasogastric tube decompression bowel rest. He is now passing gas and moving his bowels. He tolerated a clear liquid diet without increased abdominal pain. I will advance him to a regular diet today. He will be clear discharge of this is tolerated [place] today. He will need to be re-evaluated by the CARE team prior to discharge. Fall Risk Details Current Medications: Current Medications Acetaminophen (Acetaminophen 325 Mg Tablet) 650 mg PO QID PRN PRN Reason: headache, temp > 101 Albuterol Sulfate (Albuterol Sulfate 90 Mcg 18 Gm Inhaler) 2 puff INHALE Q4H PRN PRN Reason: Shortness of Breath Fluticasone/Vilanterol (Fluticasone/Vilanterol 100/25 Blst.W.Dev) 1 puff INHALE RDAILY [facility] Last Admin: 07/14/21 07:52 Dose: 1 puff Documented by: Gabapentin (Gabapentin 300 Mg Capsule) 300 mg PO TID [facility] Last Admin: 07/12/21 08:06 Dose: Not Given Documented by: Hydromorphone HCl (Hydromorphone Hcl 0.5 Mg/0.5 Ml Syringe) 0.5 mg IVPUSH Q2H PRN; Protocol PRN Reason: abdominal pain Last Admin: 07/11/21 06:50 Dose: 0.5 mg Documented by: Dextrose/Lactated Ringer's (D5lr) 1,000 mls @ 125 mls/hr IVCONT .Q8H [facility] Last Admin: 07/14/21 05:53 Dose: 125 mls/hr Documented by: Lorazepam (Lorazepam 1 Mg Tablet) 1 mg PO BID PRN PRN Reason: Anxiety Last Admin: 07/13/21 21:01 Dose: 1 mg Documented by: Nortriptyline HCl (Nortriptyline Hcl 25 Mg Capsule) 25 mg PO BEDTIME [facility] Last Admin: 07/13/21 21:03 Dose: Not Given Documented by: Ondansetron HCl (Ondansetron Hcl 4 Mg/2 Ml Vial) 4 mg IVPUSH Q8H PRN PRN Reason: Nausea Last Admin: 07/11/21 00:38 Dose: 4 mg Documented by: Pantoprazole Sodium (Pantoprazole Sodium 40 Mg/10 Ml Vial) 40 mg IVPUSH BID@0630,1630 [facility] Last Admin: 07/14/21 06:20 Dose: 40 mg Documented by: Pharmacy Consult (Consult Rx Perform Med Rec) 1 each MISCELLANE ONCE PRN PRN Reason: Consult order Pharmacy Consult (Consult Rx Perform Med Rec) 1 each MISCELLANE ONCE PRN PRN Reason: Consult order Quetiapine Fumarate (Quetiapine Fumarate 25 Mg Tablet) 12.5 mg PO BID PRN PRN Reason: anxiety Sodium Chloride (0.9 % Sodium Chloride Flush 3 Ml Syringe) 3 ml IVFLUSH QSHIFT [facility] Last Admin: 07/14/21 08:10 Dose: Not Given Documented by: Tiotropium [place] (Tiotropium [place] 18 Mcg Cap.W.Dev) 1 puff INHALE RDAILY [facility] Last Admin: 07/14/21 07:52 Dose: 1 puff Documented by: Time Spent With Patient Time: Total time spent is greater than 50% in coordination of care (as documented) at patient's floor/unit and/or counseling patient: Time with patient: 15 - 24 minutes Quality Stroke Does the patient have a stroke diagnosis?: No VTE Prior VTE?: No VTE Risk Level:: Surgical - moderate VTE Device Contraindication: N/A - Device Ordered VTE Drug Contraindication: Treatment Not Indicated
--- NOTE | 2021-07-14 09:12 | HO.PM.IMPN ---
Subjective Subjective Date of Service: 07/14/21 Interval History: seen and examined NG removed eating diet no abd pain, reports his mood is better Review of Systems negative except interval history Physical Exam Vital Signs: Vital Signs: Last Vital Signs Temp 98.4 F 07/14/21 07:52 Pulse 84 07/14/21 07:52 Resp 18 07/14/21 07:52 BP 111/72 07/14/21 07:52 Pulse Ox 94 07/14/21 07:52 Body Mass Index 25.2 Const: Other: General - no acute distress, appears comfortable Cardiovascular - regular rate and rhythm, S1-S2 Lungs - normal respiratory effort, clear to auscultation bilaterally, no wheezing Abdomen - soft without guarding; NG with bilious drainange Extremities - no edema bilaterally Neuro - awake and alert, no focal deficits Objective Data Active Medications Acetaminophen (Acetaminophen 325 Mg Tablet) 650 mg PO QID PRN PRN Reason: headache, temp > 101 Albuterol Sulfate (Albuterol Sulfate 90 Mcg 18 Gm Inhaler) 2 puff INHALE Q4H PRN PRN Reason: Shortness of Breath Fluticasone/Vilanterol (Fluticasone/Vilanterol 100/25 Blst.W.Dev) 1 puff INHALE RDAILY [facility] Last Admin: 07/14/21 07:52 Dose: 1 puff Documented by: GIORGIO Gabapentin (Gabapentin 300 Mg Capsule) 300 mg PO TID [facility] Last Admin: 07/12/21 08:06 Dose: Not Given Documented by: TONYA Non-Admin Reason: Patient Refused Hydromorphone HCl (Hydromorphone Hcl 0.5 Mg/0.5 Ml Syringe) 0.5 mg IVPUSH Q2H PRN; Protocol PRN Reason: abdominal pain Last Admin: 07/11/21 06:50 Dose: 0.5 mg Documented by: SHAWANDA Dextrose/Lactated Ringer's (D5lr) 1,000 mls @ 125 mls/hr IVCONT .Q8H [facility] Last Admin: 07/14/21 05:53 Dose: 125 mls/hr Documented by: SYDNEY Lorazepam (Lorazepam 1 Mg Tablet) 1 mg PO BID PRN PRN Reason: Anxiety Last Admin: 07/13/21 21:01 Dose: 1 mg Documented by: SYDNEY Nortriptyline HCl (Nortriptyline Hcl 25 Mg Capsule) 25 mg PO BEDTIME [facility] Last Admin: 07/13/21 21:03 Dose: Not Given Documented by: SYDNEY Non-Admin Reason: Patient Refused Ondansetron HCl (Ondansetron Hcl 4 Mg/2 Ml Vial) 4 mg IVPUSH Q8H PRN PRN Reason: Nausea Last Admin: 07/11/21 00:38 Dose: 4 mg Documented by: SHAWANDA Pantoprazole Sodium (Pantoprazole Sodium 40 Mg/10 Ml Vial) 40 mg IVPUSH BID@0630,1630 [facility] Last Admin: 07/14/21 06:20 Dose: 40 mg Documented by: GARRETT Pharmacy Consult (Consult Rx Perform Med Rec) 1 each MISCELLANE ONCE PRN PRN Reason: Consult order Pharmacy Consult (Consult Rx Perform Med Rec) 1 each MISCELLANE ONCE PRN PRN Reason: Consult order Quetiapine Fumarate (Quetiapine Fumarate 25 Mg Tablet) 12.5 mg PO BID PRN PRN Reason: anxiety Sodium Chloride (0.9 % Sodium Chloride Flush 3 Ml Syringe) 3 ml IVFLUSH QSHIFT [facility] Last Admin: 07/14/21 08:10 Dose: Not Given Documented by: HIEN Non-Admin Reason: IV Running Tiotropium [place] (Tiotropium [place] 18 Mcg Cap.W.Dev) 1 puff INHALE RDAILY [facility] Last Admin: 07/14/21 07:52 Dose: 1 puff Documented by: GIORGIO Labs CBC & Chem 7: 07/13/21 10:08 07/13/21 10:08 Labs: Laboratory Results - last 24 hr 07/13/21 07/13/21 07/13/21 10:08 10:08 14:08 MCV 88.9 MCH 30.8 MCHC 34.7 RDW 12.3 Plt Count 193 MPV 8.7 L Absolute Nucleated RBC 0.000 Nucleated RBC % (auto) 0.0 Anion Gap 12 Estim Creat Clear Calc 85.7 Estimated GFR > 60 Random Glucose 107 Calcium 8.5 Stool Leukocytes, Qual NEGATIVE Microbiology Microbiology Results: Microbiology 07/13/21 14:08 Stool Culture - Preliminary Stool Normal so far. Assessment and Plan (1) Small bowel obstruction: Status: Acute Assessment and Plan: This is a 71 yo M with admitted for SBO 1. SBO resolved, eating diet this AM 2. HTN within normal limits Resume upon d/c 3. Depression denies SI but reportedly presented to the hospital for voluntary admission to psych will need BHN/Crisis clearance once medically stable 4. History of COPD no in exacerbation continue inhalers Will Sign off at this time. Please reconsult as needed. Quality Stroke Does the patient have a stroke diagnosis?: No VTE Prior VTE?: No VTE Risk Level:: Surgical - moderate VTE Device Contraindication: N/A - Device Ordered VTE Drug Contraindication: Treatment Not Indicated
--- NOTE | 2021-07-14 10:30 | MHC.CARE ---
Pt is a 71 y/o Romanian speaking, partnered, male who is previously known to the CARE Team through prior inpatient admissions.? Pt had arrived at [facility]? on 07/10 with a complaint of abdominal pain and nausea x 3 days.? Pt reports having had similar episodes in the past, stating that when he gets this pain he feels like a burden to his family. ?He denied SI, felt depressed. Pt has been medically cleared and is being assessed by the CARE Team to determine appropriate treatment recommendations. Pt has a hx of inpt hospitalization. Pt is assessed by CARE Team in his room on the Med surge unit in room 374, he appears neat and well groomed, is dressed in hospital attire and appears his stated age.? He is alert and oriented x4.? He is engaged in the assessment; his speech and eye contact are within normal limits.? His mood appears at times concerned, and his affect is congruent with his mood.? He reports his sleep and appetite as fair.? Pt denies AVH, SI, HI, and thoughts of self-harm.? He does not appear to be responding to internal stimuli.? Insight, judgement, memory, concentration, and Impulse control all appear uncompromised.? He does not appear to be delusional or experiencing psychosis. Pt expressed that his abdominal pain elevated his anxiety and caused depression as he felt burdensome and did not know what the cause of the pain was.? Now that he is aware of the source of the pain and has a diagnosis he feels better as there is less uncertainty.? He does state that now he has a great deal of things to do such as research what he can and cannot eat now and that he does worry about family and his children.? He does state that he experiences anxiety at his baseline and has medication for that.? He attributes fair sleep to his being in the hospital and his appetite is just returning after having an NG tube.? Pt has a psychiatrist that he sees every 40 days and a therapist he sees ?A couple of times a week.? Pt is not interested in inpatient and does not feel he needs it nor does he meet criteria for inpatient level of care.
--- NOTE | 2021-07-14 12:22 | PM.DS ---
DS: Providers Provider Date of Service: 07/16/21 Date of admission: 07/10/21 20:42 Primary care physician: Jacob Loza MD Attending physician on admission: James Dominguez Consults: 07/10/21 21:12 Consult to Hospitalist Routine Consulting Provider: Hospitalist Reason For Exam: small bowel obstruction, med management 07/11/21 08:53 Consult to Gastroenterology Routine Consulting Provider: Aime May Reason for consultation: patient known to you, SBO, intramural thickening and mesenteric stranding 07/11/21 11:05 Consult to Psychiatry Routine Consulting Provider: Psych Covering Reason for consultation: ?stated he was presenting for psych admission Has provider been notified: No Attending physician on discharge: Katie Rey DS: Diagnosis Discharge Diagnosis (1) Small bowel obstruction: Status: Acute DS: Summary Hospital Course Hospital Course: BRIEF HPI: Jameel Cameron is a 71 year old male who presented to the ED with complaints of abdominal pain. The pain began three days prior and was diffuse. The pain feels like my insides are twisting and turning . He has a history of IBS and reports this episode of pain was more severe in nature then during his IBS flares. He denies nausea, vomiting, fevers or chills. His last bowel movement was yesterday afternoon and was normal for him. He has not passed flatus since. Work up in the ED included a CT scan which showed dilated stomach and small bowel with intramural thickening and mesenteric fat stranding with edema. An NGT was placed in the ED with immediate evacuation of a large amount of feculent material. Also stated in the ED physician note is of a possible inpatient psych admission per the patient. HOSPITAL COURSE: Findings were suggestive of a small-bowel obstruction.? He was admitted to the surgical service for further treatment of the SBO. It was recommended to continue with non operative management of this small-bowel obstruction.? NPO status, IV fluids, nasogastric tube decompression were continued with further plan dependent on clinical course. A GI consult was obtained with Dr. May given the acute changes of intramural thickening and mesenteric fat stranding found on CT consistent with enteritis. He commended continuing conservative measures with possible further outpatient work up.?Stool cultures were obtained to r/o any infectious cause of enteritis. A medicine consult was also obtained for management of his medical comorbidities. The patient had an uncomplicated recovery course. The patient felt improved with the NGT decompression and this was continued until he became asymptomatic and began passing flatus. He was ambulated. He then had a trial clamping of the NGT with no return of symptoms and a low residual. It was therefore removed and he was started on clear liquids. He began to move his bowels. He was tolerating a clear liquid diet and was then advanced to a solid diet. At the time of admission, he stated he was also presenting for voluntary psych admission. This was rediscussed with the patient as he was medically cleared and he reported he no longer felt he needed admission. He was evaluated by the CARE team and they felt inpatient admission was not indicated. The patient was tolerating a solid diet without any GI symptoms. His abdomen remained benign. He felt ready for discharge to home. He was discharged to home on 07/16/21 in stable condition. Status at Discharge Functional status at discharge: independent ambulation Overall status at discharge: patient is back to baseline Time Spent with Patient Time attestation: Total time spent providing and/or coordinating discharge services: Discharge coordination time: Greater than 30 minutes Quality: Stroke Does the patient have a stroke diagnosis?: No Physical Exam Vital Signs: Vital Signs: Last Vital Signs Temp 98.4 F 07/14/21 07:52 Pulse 84 07/14/21 07:52 Resp 18 07/14/21 07:52 BP 111/72 07/14/21 07:52 Pulse Ox 94 07/14/21 07:52 Body Mass Index 25.2 Const: General: comfortable, no acute distress and alert Orientation/consciousness: patient oriented x3 GI: Inspection: No distended Palpation (GI): Soft to palpation and nontender Skin: General skin exam: no rashes or lesions noted Neuro: General: patient oriented x3 DS: Data Data Completed and Pending Completed studies during hospitalization [Text1]: Procedures Other Electroconvulsive Therapy (02/27/21) Labs on day of discharge: Laboratory Results - last 24 hr 07/13/21 14:08 Stool Leukocytes, Qual NEGATIVE Preliminary micro results at discharge 07/13/21 14:08 Stool Culture - Preliminary Stool Normal so far. 07/10/21 20:55 Blood Culture - Preliminary Blood - Venous No growth after 48 hours. 07/10/21 19:28 Blood Culture - Preliminary Blood - Venous No growth after 48 hours. Discharge Plan Discharge Anticipated Discharge Date/Time: 07/16/21 13:21 Patient Disposition: Home, Self-Care Discharge Diagnosis: SBO Referrals: Aime May [Physician] - 1 Month Jacob Loza MD [Primary Care Provider] - 1 Week Discharge Medications: Continued Trelegy Ellipta 200-62.5-25 mcg blister with device 1 puff PO DAILY RF: 0 polyethylene glycol 3350 1 packet PO DAILY RF: 0 acetaminophen 325 mg Tablet 650 mg PO Q6H PRN (Reason: Headache/Pain Mild Scale (1-3)) Qty: 0 RF: 0 magnesium hydroxide [Milk of Magnesia] 400 mg/5 mL Suspension 30 ml PO DAILY PRN (Reason: Constipation) Qty: 0 RF: 0 dicyclomine 10 mg Capsule 40 mg PO QIDACHS Qty: 0 RF: 0 simethicone [Gas Relief (simethicone)] 80 mg Tablet,Chewable 80 mg PO TIDAC Qty: 0 RF: 0 amlodipine 10 mg tablet 1 tab PO DAILY 30 Days Qty: 30 RF: 0 famotidine 40 mg Tablet 40 mg PO BID RF: 0 nortriptyline 25 mg capsule 1 cap PO BEDTIME RF: 0 gabapentin 300 mg capsule 300 mg PO BEDTIME RF: 0 lorazepam 1 mg tablet 1 tab PO BID PRN (Reason: Anxiety) RF: 0 gabapentin 100 mg capsule 100 mg PO DAILY RF: 0 MAG-AL 200-200 mg/5 mL suspension 30 ml PO Q6H PRN (Reason: Heartburn/Nausea) RF: 0 quetiapine [Seroquel] 25 mg tablet 12.5 mg PO BID PRN (Reason: Anxiety) RF: 0 levalbuterol tartrate 45 mcg/actuation HFA aerosol inhaler 2 puff inhalation Q4-6H RF: 0 Discharge Orders: Discharge Order (Routine); Ordered 07/16/21 Ordered By: Katie Rey Diet: other Activity on Discharge: As tolerated Stand Alone Forms: Patient Portal Discharge page Activity Restrictions/Additional Instructions: Call Your Doctor If: ? ? -Your temperature exceeds 101.5? F? ? ? -You experience excessive abdominal pain ? ? -You have an unexpected reaction to medication ? ? -You experience continued vomiting/nausea eat several small meals a day for better diet tolerance Care Plan Goals: Resume activities gradually. Health Concerns: Depression, IBS, SBO Plan of Treatment: Discharge to home, f/u in office with Dr. May Assessment: Improved. Discharge Date/Time: 07/16/21 15:15
--- NOTE | 2021-07-14 13:07 | MHC.CLN ---
F/U DIET ADVANCED TODAY TO REGULAR, LOW RESIDUE/SOFT. ENSURE CLEAR DISCONTINUED. ADD ENSURE BID (700 KCAL, 40 G PROTEIN). SUPPLEMENT DUE TO HX OF SIGNIFICANT WEIGHT LOSS. CONTINUE TO MONITOR FOR DIET TOLERANCE
--- NOTE | 2021-07-14 15:14 | PM.GIPN ---
Subjective Subjective Date of Service: 07/14/21 Interval History: ngt out tolerating sm amts of solids Critical Care Time (minutes): 0 Physical Exam Vital Signs: Vital Signs: Last Vital Signs Temp 97.3 F 07/14/21 12:00 Pulse 86 07/14/21 12:00 Resp 17 07/14/21 12:00 BP 143/73 H 07/14/21 12:00 Pulse Ox 95 07/14/21 12:00 Body Mass Index 25.2 Const: General: comfortable GI: Other: abdomen soft, nontender Objective Data Labs CBC & Chem 7: 07/13/21 10:08 07/13/21 10:08 Microbiology Microbiology Results: Microbiology 07/13/21 14:08 Stool Stool Culture - Preliminary Normal so far. 07/10/21 20:55 Blood - Venous Blood Culture - Preliminary No growth after 48 hours. 07/10/21 19:28 Blood - Venous Blood Culture - Preliminary No growth after 48 hours. Procedures Date of Service Date of Service: 07/14/21 Progress Note: A&P Assessment and plan (1) Small bowel obstruction: Status: Acute Assessment and Plan: improving we will arrange outpatient colonoscopy to followup on ct abnormalities after resolution of present symptoms. Fall Risk Details Current Medications: Current Medications Acetaminophen (Acetaminophen 325 Mg Tablet) 650 mg PO QID PRN PRN Reason: headache, temp > 101 Albuterol Sulfate (Albuterol Sulfate 90 Mcg 18 Gm Inhaler) 2 puff INHALE Q4H PRN PRN Reason: Shortness of Breath Benzocaine (Throat Lozenge, Medicated Lozenge) 1 lozenge MUCOUS MEM Q2H PRN PRN Reason: Sore Throat Fluticasone/Vilanterol (Fluticasone/Vilanterol 100/25 Blst.W.Dev) 1 puff INHALE RDAILY [facility] Last Admin: 07/14/21 07:52 Dose: 1 puff Documented by: Gabapentin (Gabapentin 300 Mg Capsule) 300 mg PO TID [facility] Last Admin: 07/12/21 08:06 Dose: Not Given Documented by: Hydromorphone HCl (Hydromorphone Hcl 0.5 Mg/0.5 Ml Syringe) 0.5 mg IVPUSH Q2H PRN; Protocol PRN Reason: abdominal pain Last Admin: 07/11/21 06:50 Dose: 0.5 mg Documented by: Dextrose/Lactated Ringer's (D5lr) 1,000 mls @ 125 mls/hr IVCONT .Q8H [facility] Last Admin: 07/14/21 14:12 Dose: 125 mls/hr Documented by: Lorazepam (Lorazepam 1 Mg Tablet) 1 mg PO BID PRN PRN Reason: Anxiety Last Admin: 07/13/21 21:01 Dose: 1 mg Documented by: Nortriptyline HCl (Nortriptyline Hcl 25 Mg Capsule) 25 mg PO BEDTIME [facility] Last Admin: 07/13/21 21:03 Dose: Not Given Documented by: Ondansetron HCl (Ondansetron Hcl 4 Mg/2 Ml Vial) 4 mg IVPUSH Q8H PRN PRN Reason: Nausea Last Admin: 07/11/21 00:38 Dose: 4 mg Documented by: Pantoprazole Sodium (Pantoprazole Sodium 40 Mg/10 Ml Vial) 40 mg IVPUSH BID@0630,1630 [facility] Last Admin: 07/14/21 06:20 Dose: 40 mg Documented by: Pharmacy Consult (Consult Rx Perform Med Rec) 1 each MISCELLANE ONCE PRN PRN Reason: Consult order Pharmacy Consult (Consult Rx Perform Med Rec) 1 each MISCELLANE ONCE PRN PRN Reason: Consult order Quetiapine Fumarate (Quetiapine Fumarate 25 Mg Tablet) 12.5 mg PO BID PRN PRN Reason: anxiety Sodium Chloride (0.9 % Sodium Chloride Flush 3 Ml Syringe) 3 ml IVFLUSH QSHIFT [facility] Last Admin: 07/14/21 08:10 Dose: Not Given Documented by: Tiotropium Reading (Tiotropium Reading 18 Mcg Cap.W.Dev) 1 puff INHALE RDAILY [facility] Last Admin: 07/14/21 07:52 Dose: 1 puff Documented by: Time Spent With Patient Time: Total time spent is greater than 50% in coordination of care (as documented) at patient's floor/unit and/or counseling patient: Time with patient: less than 15 minutes Quality Stroke Does the patient have a stroke diagnosis?: No VTE Prior VTE?: No VTE Risk Level:: Surgical - moderate VTE Device Contraindication: N/A - Device Ordered VTE Drug Contraindication: Treatment Not Indicated
[2021-07-14] MEDS: LORazepam 1 MG TABLET PO ×2 (16:34→21:16)
[2021-07-14] MEDS: Throat Lozenge, Medicated LOZENGE 1 LOZENGE MUCOUS MEM (16:34)
[2021-07-15 03:13] VITALS: BP 125/68; PULSE 79; RESP 18; TEMP 37.3; O2SAT 94
[2021-07-15] MEDS: Pantoprazole Sodium 40 MG/10 ML VIAL IVPUSH ×2 (07:13→15:45)
[2021-07-15 07:24] VITALS: BP 135/75; PULSE 74; RESP 17; TEMP 36.7; O2SAT 97
[2021-07-15] MEDS: Dextrose 5 % and Lactated Ring 1,000 ML 125 ML IVCONT (08:17)
[2021-07-15 11:58] VITALS: BP 136/84; PULSE 81; RESP 17; TEMP 36.4; O2SAT 96
--- NOTE | 2021-07-15 12:47 | PM.PNGS ---
Subjective Subjective Date of Service: 07/15/21 Interval history: feeling better, less pain but weak and tired. pasing some gas and stool and starting to eat Physical Exam Vital Signs: Vital Signs: Last Vital Signs Temp 97.5 F 07/15/21 11:58 Pulse 81 07/15/21 11:58 Resp 17 07/15/21 11:58 BP 136/84 07/15/21 11:58 Pulse Ox 96 07/15/21 11:58 Body Mass Index 25.2 GI: Other: abdomen soft nontender some bowel sounds not distended Procedures Date of Service Date of Service: 07/15/21 Progress Note: A&P Assessment and plan (1) Small bowel obstruction: Status: Acute Assessment and Plan: 71 year old male with psbo resolving - plan to advance diet ambulate and probable dc home tomorrow am. will resume bp med and pepcid. Fall Risk Details Current Medications: Current Medications Acetaminophen (Acetaminophen 325 Mg Tablet) 650 mg PO QID PRN PRN Reason: headache, temp > 101 Albuterol Sulfate (Albuterol Sulfate 90 Mcg 18 Gm Inhaler) 2 puff INHALE Q4H PRN PRN Reason: Shortness of Breath Amlodipine Besylate (Amlodipine Besylate 10 Mg Tablet) 10 mg PO DAILY [facility]; Protocol Benzocaine (Throat Lozenge, Medicated Lozenge) 1 lozenge MUCOUS MEM Q2H PRN PRN Reason: Sore Throat Last Admin: 07/14/21 16:34 Dose: 1 lozenge Documented by: Docusate Sodium (Docusate Sodium 100 Mg Capsule) 100 mg PO BID [facility] Famotidine (Famotidine 20 Mg Tablet) 20 mg PO DAILY [facility] Fluticasone/Vilanterol (Fluticasone/Vilanterol 100/25 Blst.W.Dev) 1 puff INHALE RDAILY [facility] Last Admin: 07/15/21 08:04 Dose: Not Given Documented by: Gabapentin (Gabapentin 300 Mg Capsule) 300 mg PO TID [facility] Last Admin: 07/12/21 08:06 Dose: Not Given Documented by: Hydromorphone HCl (Hydromorphone Hcl 0.5 Mg/0.5 Ml Syringe) 0.5 mg IVPUSH Q2H PRN; Protocol PRN Reason: abdominal pain Last Admin: 07/11/21 06:50 Dose: 0.5 mg Documented by: Dextrose/Lactated Ringer's (D5lr) 1,000 mls @ 125 mls/hr IVCONT .Q8H [facility] Last Admin: 07/15/21 08:17 Dose: 125 mls/hr Documented by: Lorazepam (Lorazepam 1 Mg Tablet) 1 mg PO BID PRN PRN Reason: Anxiety Last Admin: 07/14/21 21:16 Dose: 1 mg Documented by: Nortriptyline HCl (Nortriptyline Hcl 25 Mg Capsule) 25 mg PO BEDTIME [facility] Last Admin: 07/14/21 21:14 Dose: Not Given Documented by: Ondansetron HCl (Ondansetron Hcl 4 Mg/2 Ml Vial) 4 mg IVPUSH Q8H PRN PRN Reason: Nausea Last Admin: 07/11/21 00:38 Dose: 4 mg Documented by: Pantoprazole Sodium (Pantoprazole Sodium 40 Mg/10 Ml Vial) 40 mg IVPUSH BID@0630,1630 [facility] Last Admin: 07/15/21 07:13 Dose: 40 mg Documented by: Pharmacy Consult (Consult Rx Perform Med Rec) 1 each MISCELLANE ONCE PRN PRN Reason: Consult order Pharmacy Consult (Consult Rx Perform Med Rec) 1 each MISCELLANE ONCE PRN PRN Reason: Consult order Quetiapine Fumarate (Quetiapine Fumarate 25 Mg Tablet) 12.5 mg PO BID PRN PRN Reason: anxiety Sodium Chloride (0.9 % Sodium Chloride Flush 3 Ml Syringe) 3 ml IVFLUSH QSHIFT [facility] Last Admin: 07/15/21 10:40 Dose: Not Given Documented by: Tiotropium [place] (Tiotropium [place] 18 Mcg Cap.W.Dev) 1 puff INHALE RDAILY [facility] Last Admin: 07/15/21 08:04 Dose: Not Given Documented by: Time Spent With Patient Time: Total time spent is greater than 50% in coordination of care (as documented) at patient's floor/unit and/or counseling patient: Time with patient: 15 - 24 minutes Quality Stroke Does the patient have a stroke diagnosis?: No VTE Prior VTE?: No VTE Risk Level:: Surgical - moderate VTE Device Contraindication: N/A - Device Ordered VTE Drug Contraindication: Treatment Not Indicated
[2021-07-15] MEDS: amLODIPine Besylate 10 MG TABLET PO (13:51)
[2021-07-15 15:27] VITALS: BP 140/86; PULSE 115; RESP 18; TEMP 36.2; O2SAT 97
[2021-07-15] MEDS: 0.9 % Sodium Chloride Flush 3 ML SYRINGE IVFLUSH (15:38)
[2021-07-15] MEDS: LORazepam 1 MG TABLET PO (15:45)
[2021-07-15 19:26] VITALS: BP 132/75; PULSE 104; RESP 18; TEMP 36.1; O2SAT 95
[2021-07-15] MEDS: Docusate Sodium 100 MG CAPSULE PO (22:37)
[2021-07-15 23:46] VITALS: BP 123/68; PULSE 82; RESP 17; TEMP 37; O2SAT 94
[2021-07-16] MEDS: LORazepam 1 MG TABLET PO (00:22)
[2021-07-16] MEDS: 0.9 % Sodium Chloride Flush 3 ML SYRINGE IVFLUSH ×2 (00:23→09:42)
[2021-07-16 04:00] VITALS: BP 122/71; PULSE 83; RESP 17; TEMP 36.2; O2SAT 92
[2021-07-16 07:33] VITALS: BP 129/79; PULSE 84; RESP 16; TEMP 36.7; O2SAT 98
[2021-07-16] MEDS: Fluticasone/Vilanterol 100/25 BLST.W.DEV 1 PUFF INHALE (07:47)
[2021-07-16] MEDS: Docusate Sodium 100 MG CAPSULE PO (09:40)
[2021-07-16] MEDS: Famotidine 20 MG TABLET PO (09:40)
[2021-07-16] MEDS: amLODIPine Besylate 10 MG TABLET PO (09:41)
[2021-07-16 11:45] VITALS: BP 150/63; PULSE 90; RESP 18; TEMP 36.9; O2SAT 98
--- NOTE | 2021-07-16 13:24 | PM.DS ---
DS: Providers Provider Date of Service: 07/16/21 Date of admission: 07/10/21 20:42 Date of discharge: 07/16/21 Primary care physician: Jacob Loza MD Admitting clinician: James Dominguez Consults: 07/10/21 21:12 Consult to Hospitalist Routine Consulting Provider: Hospitalist Reason For Exam: small bowel obstruction, med management 07/11/21 08:53 Consult to Gastroenterology Routine Consulting Provider: Aime May Reason for consultation: patient known to you, SBO, intramural thickening and mesenteric stranding 07/11/21 11:05 Consult to Psychiatry Routine Consulting Provider: Psych Covering Reason for consultation: ?stated he was presenting for psych admission Has provider been notified: No Attending physician on discharge: Katie Rey DS: Diagnosis Discharge Diagnosis (1) Small bowel obstruction: Start date: 07/10/21 Status: Acute DS: Summary Hospital Course Hospital Course: BRIEF HPI: Jameel Cameron is a 71 year old male who presented to the ED with complaints of abdominal pain. The pain began three days prior and was diffuse. The pain feels like my insides are twisting and turning . He has a history of IBS and reports this episode of pain was more severe in nature then during his IBS flares. He denies nausea, vomiting, fevers or chills. His last bowel movement was yesterday afternoon and was normal for him. He has not passed flatus since. Work up in the ED included a CT scan which showed dilated stomach and small bowel with intramural thickening and mesenteric fat stranding with edema. An NGT was placed in the ED with immediate evacuation of a large amount of feculent material. Also stated in the ED physician note is of a possible inpatient psych admission per the patient. HOSPITAL COURSE: Findings were suggestive of a small-bowel obstruction.? He was admitted to the surgical service for further treatment of the SBO. It was recommended to continue with non operative management of this small-bowel obstruction.? NPO status, IV fluids, nasogastric tube decompression were continued with further plan dependent on clinical course. A GI consult was obtained with Dr. May given the acute changes of intramural thickening and mesenteric fat stranding found on CT consistent with enteritis. He commended continuing conservative measures with possible further outpatient work up.?Stool cultures were obtained to r/o any infectious cause of enteritis. A medicine consult was also obtained for management of his medical comorbidities. The patient had an uncomplicated recovery course. The patient felt improved with the NGT decompression and this was continued until he became asymptomatic and began passing flatus. He was ambulated. He then had a trial clamping of the NGT with no return of symptoms and a low residual. It was therefore removed and he was started on clear liquids. He began to move his bowels. He was tolerating a clear liquid diet and was then advanced to a solid diet. At the time of admission, he stated he was also presenting for voluntary psych admission. This was rediscussed with the patient as he was medically cleared and he reported he no longer felt he needed admission. He was evaluated by the CARE team and they felt inpatient admission was not indicated. The following day, the patient was tolerating a solid diet without any GI symptoms. His abdomen remained benign. He felt ready for discharge to home. He was discharged to home on 07/16/21 in stable condition. Status at Discharge Functional status at discharge: independent ambulation Overall status at discharge: patient is back to baseline Time Spent with Patient Time attestation: Total time spent providing and/or coordinating discharge services: Discharge coordination time: Less than 30 minutes Quality: Stroke Does the patient have a stroke diagnosis?: No Reason for No Anti-thrombotic at DC: Not indicated Reason for No Anticoagulant at DC: Not indicated Reason for No Anti-thrombotic by Day Two: Not indicated Reason for No Statin at DC: Not indicated Physical Exam Vital Signs: Vital Signs: Last Vital Signs Temp 98.4 F 07/16/21 11:45 Pulse 90 07/16/21 11:45 Resp 18 07/16/21 11:45 BP 150/63 H 07/16/21 11:45 Pulse Ox 98 07/16/21 11:45 Body Mass Index 25.2 Const: General: cooperative, healthy appearing, no acute distress, alert, awake and Physically active Orientation/consciousness: oriented to person, oriented to place, oriented to time and patient oriented x3 Resp: Effort & Inspection: normal respiratory effort Cardio: Rate: regular rate Rhythm: regular rhythm GI: Inspection: Yes normal to inspection Palpation (GI): Soft to palpation, not firm, nontender and no guarding Neuro: General: oriented to person, oriented to place, oriented to time and patient oriented x3 Cranial nerves: Yes CN's II-XII intact bilaterally Cognition (Neuro): normal cognition Psych: Appearance: grossly normal Mental Status: mental status grossly normal Speech and movement: Normal speech and movement present Affect: normal affect Attitude: cooperative Thought process: Normal thought process present Thought content: Normal thought content present Insight: Good insight present (Psych) Judgement: Good judgement present (Psych) DS: Data Data Completed and Pending Completed studies during hospitalization [Text1]: Procedures Other Electroconvulsive Therapy (02/27/21) Discharge Plan Discharge Anticipated Discharge Date/Time: 07/16/21 13:21 Patient Disposition: Home, Self-Care Discharge Diagnosis: SBO Referrals: Aime May [Physician] - 1 Month Jacob Loza MD [Primary Care Provider] - 1 Week Discharge Medications: Continued Trelegy Ellipta 200-62.5-25 mcg blister with device 1 puff PO DAILY RF: 0 polyethylene glycol 3350 1 packet PO DAILY RF: 0 acetaminophen 325 mg Tablet 650 mg PO Q6H PRN (Reason: Headache/Pain Mild Scale (1-3)) Qty: 0 RF: 0 magnesium hydroxide [Milk of Magnesia] 400 mg/5 mL Suspension 30 ml PO DAILY PRN (Reason: Constipation) Qty: 0 RF: 0 dicyclomine 10 mg Capsule 40 mg PO QIDACHS Qty: 0 RF: 0 simethicone [Gas Relief (simethicone)] 80 mg Tablet,Chewable 80 mg PO TIDAC Qty: 0 RF: 0 amlodipine 10 mg tablet 1 tab PO DAILY 30 Days Qty: 30 RF: 0 famotidine 40 mg Tablet 40 mg PO BID RF: 0 nortriptyline 25 mg capsule 1 cap PO BEDTIME RF: 0 gabapentin 300 mg capsule 300 mg PO BEDTIME RF: 0 lorazepam 1 mg tablet 1 tab PO BID PRN (Reason: Anxiety) RF: 0 gabapentin 100 mg capsule 100 mg PO DAILY RF: 0 MAG-AL 200-200 mg/5 mL suspension 30 ml PO Q6H PRN (Reason: Heartburn/Nausea) RF: 0 quetiapine [Seroquel] 25 mg tablet 12.5 mg PO BID PRN (Reason: Anxiety) RF: 0 levalbuterol tartrate 45 mcg/actuation HFA aerosol inhaler 2 puff inhalation Q4-6H RF: 0 Discharge Orders: Discharge Order (Routine); Ordered 07/16/21 Ordered By: Katie Rey Diet: other Activity on Discharge: As tolerated Stand Alone Forms: Patient Portal Discharge page Activity Restrictions/Additional Instructions: Call Your Doctor If: ? ? -Your temperature exceeds 101.5? F? ? ? -You experience excessive abdominal pain ? ? -You have an unexpected reaction to medication ? ? -You experience continued vomiting/nausea eat several small meals a day for better diet tolerance Care Plan Goals: Resume activities gradually. Health Concerns: Depression, IBS, SBO Plan of Treatment: Discharge to home, f/u in office with Dr. May Assessment: Improved.
--- NOTE | 2021-07-16 13:43 | MHC.CM.PN ---
PT CLEARED TO DC HOME TODAY WITH NO SERVICES PT TO SELF ARRANGE TRANSPORT
== END 2021-07-16 15:15 | disposition home or self-care (01) | DRG 389 ==
LOC: HO.ED 20:47 → HO.EDOVER 21:28 → HO.IMC 22:03 → HO.S3 07-11 18:41
PROVIDERS: Family Medicine; Internal Medicine Gastroenterology; Nurse Practitioner Family; Physician Assistant Surgical; Admitting Provider Surgery; Emergency Provider Internal Medicine; PCP Internal Medicine; Visit Provider Surgery
DX: K91.30 Postprocedural intestinal obstruction, unspecified as to partial versus complete (principal); R45.851 Suicidal ideations; F33.2 Major depressive disorder, recurrent severe without psychotic features; I10 Essential (primary) hypertension; I25.2 Old myocardial infarction; D72.829 Elevated white blood cell count, unspecified; K58.9 Irritable bowel syndrome, unspecified; I25.10 Atherosclerotic heart disease of native coronary artery without angina pectoris; E78.5 Hyperlipidemia, unspecified; Z20.822 Contact with and (suspected) exposure to COVID-19; Z87.891 Personal history of nicotine dependence; Z88.0 Allergy status to penicillin; Z88.2 Allergy status to sulfonamides; Z79.899 Other long term (current) drug therapy
CPT/HCPCS: 36415; 71045; 74176; 80048; 80076; 83605; 85014; 85018; 85025; 85027; 87040; 87045; 87046; 87635; 89055; 93005; 96361; 96365; 96375; 99285; J1170; J1200; J2270; J2405; J2543

== ENCOUNTER 2021-08-09 11:47 | Day surgery (SDC) | payer OTHER, SELFPAY ==
[2021-08-03 12:11] VITALS: BMI 25.0
--- NOTE | 2021-08-08 09:00 | HO.ANESPROP2 ---
Documented by User: Kaylen Araujo NP 08/08/21 09:04 HPI - Anesthesia Eval Consult details Narrative: 71yo M for Colonoscopy Cardiac eval pre-ECT 02/2021 - stable CAD, no further w/u needed s/p ECTs - last 02/2021 *Mult med allergies PMFSH Active Problems Active Problems: All Active Problems (Updated 08/03/21 @ 12:14 by Frances Hanks RN) Major depressive disorder, recurrent episode, severe with anxious distress (Acute) 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 (Acute) PREMA (obstructive sleep apnea) (Acute) IBS (irritable bowel syndrome) (Acute) Hypertension (Acute) Depression (Acute) Anxiety (Acute) Tardive dyskinesia (Acute) Generalized anxiety disorder (Acute) CAD (coronary artery disease) (Acute) COPD (chronic obstructive pulmonary disease) (Acute) HLD (hyperlipidemia) (Acute) Past Medical History Medical History (Updated 08/03/21 @ 12:14 by Frances Hanks RN) Abnormal nuclear stress test Anxiety Asthma CAD (coronary artery disease) Chronic respiratory failure COPD (chronic obstructive pulmonary disease) COVID-19 vaccine series completed Generalized anxiety disorder GERD (gastroesophageal reflux disease) History of major depression HLD (hyperlipidemia) Hx of small bowel obstruction IBS (irritable bowel syndrome) Panic disorder Pneumonitis Smoking Tardive dyskinesia Family History Family History Father No problems noted. Mother No problems noted. Surgical History Surgical History (Updated 08/03/21 @ 10:58 by Frances Hanks RN) H/O bilateral inguinal hernia repair Hx of cholecystectomy Hx of colonoscopy Stented coronary artery Social History Social History Household Members: Other Housing: House Are you a primary after school caregiver to a significant other at home: No Do you presently have visiting nurse or other home services: No Unable to assess alcohol history related to: Unknown Alcohol intake: never Patient Tobacco Use Status: Former Tobacco user Quit Date: 3 yrs ago Tobacco use type: Cigarette Years Smoked: 30+ e-Cigarette/Vaping Use: Never Used Second Hand Smoke Exposure: No Use of substances other than those prescribed or required for medical reasons: No Have you been hit, kicked, punched, or otherwise hurt by someone within the past year? If so, by whom?: No Are you DNR?: No Advance Directives: No Advance Directives Information Provided: No Advance Directives on File: No Recently lost weight without trying: No Eating poorly because of decreased appetite: No Nutrition Risks: No Nutritional Risk service: No Sexual orientation: Lesbian/Triana/Homosexual Meds Allergies Allergy/AdvReac Type Severity Reaction Status Date / Time lamotrigine [From LAMICTAL] Allergy Severe agitation Verified 08/03/21 11:55 and anxiety with titration codeine [CODEINE] Allergy Intermediate INSOMNIA Verified 08/03/21 11:55 Penicillins [PENICILLINS] Allergy Intermediate RASH Verified 08/03/21 11:55 epinephrine [EPINEPHRINE] AdvReac Intermediate Hypertensio Verified 08/03/21 11:55 n escitalopram [From LEXAPRO] AdvReac Intermediate NIGHTMARES Verified 08/03/21 11:55 sertraline [From ZOLOFT] AdvReac Intermediate NIGHTMARES Verified 08/03/21 11:55 sulfamethoxazole AdvReac Intermediate STOMACH Verified 08/03/21 11:55 [From BACTRIM] UPSET Home Medications Medication Instructions Recorded Confirmed Last Taken Type famotidine 40 mg tablet 40 mg PO BID 02/10/21 08/03/21 05/11/21 08:00 History fluticasone fur. 200 mcg-umeclid 1 puff PO DAILY 05/11/21 08/03/21 05/10/21 08:00 History 62.5 mcg-vilant 25 mcg inhalat.powder (Trelegy Ellipta) aluminum-magnesium hydroxide 200 30 ml PO Q6H PRN ml 07/07/21 07/10/21 Unknown History mg-200 mg/5 mL oral suspension (MAG-AL) levalbuterol tartrate 45 2 puff INHALATION Q4-6H 07/07/21 08/03/21 Unknown History mcg/actuation aerosol inhaler quetiapine 25 mg tablet (Seroquel) 12.5 mg PO BID PRN 07/07/21 08/03/21 Unknown History lorazepam 1 mg tablet 1 tab PO BID PRN 07/10/21 08/03/21 Unknown History nortriptyline 25 mg capsule 1 cap PO BEDTIME 07/10/21 08/03/21 Unknown History Exam Exam Date and Time: August 08, 2021 0900 Height,Weight and Vital Signs: Height 5 ft 7 in Weight 72.575 kg Pertinent Lab Results Pertinent Lab Results: Laboratory Tests 07/13/21 07/13/21 10:08 10:08 WBC 8.4 Hgb 13.0 L Hct 37.5 L Plt Count 193 Sodium 140 Potassium 3.5 Chloride 104 Carbon Dioxide 28 BUN 5 L D Creatinine 0.76 Assessment and Plan Assessment Anesthesia Assessment: Chart Reviewed Documented by User: Jody Gross MD 08/09/21 12:41 PMFSH Past Medical History Medical History (Updated 08/03/21 @ 12:14 by Frances Hanks RN) Abnormal nuclear stress test Anxiety Asthma CAD (coronary artery disease) Chronic respiratory failure COPD (chronic obstructive pulmonary disease) COVID-19 vaccine series completed Generalized anxiety disorder GERD (gastroesophageal reflux disease) History of major depression HLD (hyperlipidemia) Hx of small bowel obstruction IBS (irritable bowel syndrome) Panic disorder Pneumonitis Smoking Tardive dyskinesia Family History Family History Father No problems noted. Mother No problems noted. Surgical History Surgical History (Updated 08/03/21 @ 10:58 by Frances Hanks RN) H/O bilateral inguinal hernia repair Hx of cholecystectomy Hx of colonoscopy Stented coronary artery History of Problems with Anesthesia: No Social History Social History Household Members: Other Housing: House Are you a primary after school caregiver to a significant other at home: No Do you presently have visiting nurse or other home services: No Unable to assess alcohol history related to: Unknown Alcohol intake: never Patient Tobacco Use Status: Former Tobacco user Quit Date: 3 yrs ago Tobacco use type: Cigarette Years Smoked: 30+ e-Cigarette/Vaping Use: Never Used Second Hand Smoke Exposure: No Use of substances other than those prescribed or required for medical reasons: No Have you been hit, kicked, punched, or otherwise hurt by someone within the past year? If so, by whom?: No Are you DNR?: No Advance Directives: No Advance Directives Information Provided: No Advance Directives on File: No Recently lost weight without trying: No Eating poorly because of decreased appetite: No Nutrition Risks: No Nutritional Risk service: No Sexual orientation: Lesbian/Triana/Homosexual Meds Allergies Allergy/AdvReac Type Severity Reaction Status Date / Time lamotrigine [From LAMICTAL] Allergy Severe agitation Verified 08/03/21 11:55 and anxiety with titration codeine [CODEINE] Allergy Intermediate INSOMNIA Verified 08/03/21 11:55 Penicillins [PENICILLINS] Allergy Intermediate RASH Verified 08/03/21 11:55 epinephrine [EPINEPHRINE] AdvReac Intermediate Hypertensio Verified 08/03/21 11:55 n escitalopram [From LEXAPRO] AdvReac Intermediate NIGHTMARES Verified 08/03/21 11:55 sertraline [From ZOLOFT] AdvReac Intermediate NIGHTMARES Verified 08/03/21 11:55 sulfamethoxazole AdvReac Intermediate STOMACH Verified 08/03/21 11:55 [From BACTRIM] UPSET Home Medications Medication Instructions Recorded Confirmed Last Taken Type famotidine 40 mg tablet 40 mg PO BID 02/10/21 08/03/21 05/11/21 08:00 History fluticasone fur. 200 mcg-umeclid 1 puff PO DAILY 05/11/21 08/03/21 05/10/21 08:00 History 62.5 mcg-vilant 25 mcg inhalat.powder (Trelegy Ellipta) aluminum-magnesium hydroxide 200 30 ml PO Q6H PRN ml 07/07/21 07/10/21 Unknown History mg-200 mg/5 mL oral suspension (MAG-AL) levalbuterol tartrate 45 2 puff INHALATION Q4-6H 07/07/21 08/03/21 Unknown History mcg/actuation aerosol inhaler quetiapine 25 mg tablet (Seroquel) 12.5 mg PO BID PRN 07/07/21 08/03/21 Unknown History lorazepam 1 mg tablet 1 tab PO BID PRN 07/10/21 08/03/21 Unknown History nortriptyline 25 mg capsule 1 cap PO BEDTIME 07/10/21 08/03/21 Unknown History Exam Airway Mallampati Class: III TM Dist: >3cm Neck ROM: Full Loose/Missing/Broken Teeth: No Heart: RRR Lungs: CTA Assessment and Plan Assessment Anesthesia Assessment: Anesthesia Plan Discussed Final Anesthetic Review History of Problems with Anesthesia: No NPO: Yes ASA Class: III Final Preanesthetic Review: Meds/Allgs Chart Reviewed, Consent Obtained/Reviewed and Anes Risks/Benef Reviewed Patient Risk: Intermediate Procedure Risk: Low Anesthetic Plan Anesthetic Plan: MAC: Disposition: Standard PACU
[2021-08-09 12:15] VITALS: BP 142/88; PULSE 112; RESP 18; TEMP 36.3; O2SAT 99
[2021-08-09] MEDS: Lactated Ringers 1,000 ML 100 ML IVCONT (12:40)
--- NOTE | 2021-08-09 13:00 | MHC.SHP ---
Pre-Procedural Eval Section A Date of Service: 08/09/21 The patient is an INPATIENT: No Changes since office visit: No Cold of Flu in the past 2 weeks, No New Medical Problems, No Changes in Medication and No Patient answered all questions The History & Physical has been completed within 30 days and I have reviewed it.: Yes Section B Chief Complaint: abnormal findings Allergies: Allergies Allergy/AdvReac Type Severity Reaction Status Date / Time lamotrigine [From LAMICTAL] Allergy Severe agitation Verified 08/03/21 11:55 and anxiety with titration codeine [CODEINE] Allergy Intermediate INSOMNIA Verified 08/03/21 11:55 Penicillins [PENICILLINS] Allergy Intermediate RASH Verified 08/03/21 11:55 epinephrine [EPINEPHRINE] AdvReac Intermediate Hypertensio Verified 08/03/21 11:55 n escitalopram [From LEXAPRO] AdvReac Intermediate NIGHTMARES Verified 08/03/21 11:55 sertraline [From ZOLOFT] AdvReac Intermediate NIGHTMARES Verified 08/03/21 11:55 sulfamethoxazole AdvReac Intermediate STOMACH Verified 08/03/21 11:55 [From BACTRIM] UPSET Plan I have reviewed the history and physical and performed a pertinent physical examination on my patient. No changes have occurred unless specified.
[2021-08-09 13:40] VITALS: BP 91/57; RESP 18; TEMP 37; O2SAT 99
--- NOTE | 2021-08-09 13:40 | PM.OP ---
Brief Operative Note Date of Service: 08/09/21 Pre-op diagnosis: abnl xray gi tract, sbo Post-op diagnosis: same (normal exam, colon polyps) Procedure: colonoscopy Surgeon: Aime May Anesthesia: MAC Was an Associate Material Handler used for this Procedure?: No Estimated blood loss (mL): 5 Pathology: other (bxs ti, colon, colon polyps) Condition: stable Disposition: PACU
[2021-08-09 14:00] VITALS: BP 129/78; PULSE 83; RESP 16; TEMP 37; O2SAT 100
--- NOTE | 2021-08-09 21:28 | OP_ITS ---
SURGEON: Aime May MD INDICATIONS: Small bowel obstruction and abnormal CT scan of the GI tract. PREOPERATIVE DIAGNOSIS: POSTOPERATIVE DIAGNOSIS: PROCEDURE PERFORMED: ESTIMATED BLOOD LOSS: COMPLICATIONS: ANESTHESIA: ASSISTANTS: SPECIMENS: PROCEDURE: Colonoscopy to the terminal ileum with biopsy and snare polypectomy. MEDICATION: Monitored anesthesia care. DESCRIPTION OF PROCEDURE: History and physical performed. The risks and benefits of the procedure were explained to the patient. Informed consent was obtained. The patient was placed in the left lateral decubitus position. A digital rectal exam was performed, was found to be normal. The Olympus pediatric video colonoscope was introduced into the rectum and advanced to the cecum without difficulty. The cecum was identified by transillumination, palpation, and identification of ileocecal valve examination was performed. The scope was removed. He tolerated the procedure well and was taken to recovery in stable condition. FINDINGS: The terminal ileum was examined and appeared normal. The scope was advanced into the terminal ileum for approximately 30 cm. The mucosa appeared normal. Biopsies were obtained from multiple sites throughout the terminal ileum. There was no evidence of colitis, enteritis, or Crohn's disease. There is no narrowing. The visualized colonic mucosa was also normal. Biopsies were obtained from the cecum and sigmoid to rule out microscopic disease. In the right colon were 3 polyps, 2 which measured less than 5 mm and a 3rd measuring approximately 6 mm that was snared. Less than 5 mm polyps were removed with the biopsy forceps. No other polyps were identified. There was mild diverticulosis involving the sigmoid and some scattered diverticula throughout the colon. Retroflexed examination showed some small internal hemorrhoids. The quality of prep was good. IMPRESSION: 1. Colon polyps. 2. Normal small intestine to 140 cm. PLAN: 1. Followup the biopsy results. MD YANG Vale/MARIAM / [id number] MTDJules
== END 2021-08-09 14:50 | disposition home or self-care (01) ==
PROVIDERS: PCP Internal Medicine; Visit Provider Internal Medicine Gastroenterology
PROC: 0DJD8ZZ Inspection of Lower Intestinal Tract, Via Natural or Artificial Opening Endoscopic (ICD-10-PCS; CPT 45378; principal; 2021-08-09 13:00)
DX: R93.3 Abnormal findings on diagnostic imaging of other parts of digestive tract (principal); D12.4 Benign neoplasm of descending colon; K57.30 Diverticulosis of large intestine without perforation or abscess without bleeding; K64.8 Other hemorrhoids; K58.0 Irritable bowel syndrome with diarrhea; K21.9 Gastro-esophageal reflux disease without esophagitis; I25.10 Atherosclerotic heart disease of native coronary artery without angina pectoris; Z98.61 Coronary angioplasty status; I25.2 Old myocardial infarction; I10 Essential (primary) hypertension; Z79.899 Other long term (current) drug therapy; J44.9 Chronic obstructive pulmonary disease, unspecified; Z90.49 Acquired absence of other specified parts of digestive tract; F32.9 Major depressive disorder, single episode, unspecified; Z79.51 Long term (current) use of inhaled steroids; Z87.891 Personal history of nicotine dependence
CPT/HCPCS: 45385; 45380; 88305

== ENCOUNTER → 2021-08-11 13:05 | Outpatient (BNVA) | payer OTHER, SELFPAY | PROVIDERS: PCP Internal Medicine; Visit Provider Hospitalist | DX: K21.9 Gastro-esophageal reflux disease without esophagitis (principal) ==

== ENCOUNTER 2021-08-28 11:00 | Inpatient (IN) | payer OTHER, SELFPAY ==
--- NOTE | 2021-08-28 11:40 | ECG_ITS ---
Test Reason : MED CLEARANCE Blood Pressure : / mmHG Vent. Rate : 095 BPM Atrial Rate : 095 BPM P-R Int : 160 ms QRS Dur : 090 ms QT Int : 352 ms P-R-T Axes : 080 045 060 degrees QTc Int : 442 ms Normal sinus rhythm Normal ECG When compared with ECG of 10-JUL-2021 17:21, No significant change was found Referred By: Kimo Sinclair Electronically Signed By:Siddhartha Tucker
--- NOTE | 2021-08-28 11:42 | ED_ITS ---
HPI - Psych General Chief Complaint: Psychiatric Symptoms Stated Complaint: Crisis Time Seen by Provider: 08/28/21 11:25 Source: patient Mode of arrival: ambulatory Limitations: no limitations History of Present Illness HPI Narrative: SI ,feels very depressed anxious,no plan MD complaint: suicidal ideation Onset (ago): week(s) (4) Duration: constant Relieving factors: none Exacerbating factors: none Associated psychiatric symptoms: none, depression and suicidal ideation Related Data Home Medications Medication Instructions Recorded Confirmed amlodipine 10 mg tablet 10 mg PO DAILY 08/28/21 08/28/21 cholecalciferol (vitamin D3) 25 50 mcg PO DAILY 08/28/21 08/28/21 mcg (1,000 unit) tablet (Vitamin D3) dicyclomine 10 mg capsule 30 mg PO TIDAC 08/28/21 08/28/21 famotidine 40 mg tablet 40 mg PO BID 08/28/21 08/28/21 fluticasone fur. 200 mcg-umeclid 1 puff INHALATION DAILY 08/28/21 08/28/21 62.5 mcg-vilant 25 mcg inhalat.powder (Trelegy Ellipta) levalbuterol tartrate 45 2 puff INHALATION Q4H PRN 08/28/21 08/28/21 mcg/actuation aerosol inhaler lorazepam 1 mg tablet 1 tab PO TID PRN 08/28/21 08/28/21 nortriptyline 10 mg capsule 20 mg PO BEDTIME 08/28/21 08/28/21 polyethylene glycol 3350 17 17 g PO DAILY 08/28/21 08/28/21 gram/dose oral powder (Miralax) quetiapine 25 mg tablet 12.5 mg PO BID 08/28/21 08/28/21 simethicone 80 mg chewable tablet 160 mg PO TIDAC 08/28/21 08/28/21 Allergies Allergy/AdvReac Type Severity Reaction Status Date / Time lamotrigine [From LAMICTAL] Allergy Severe agitation Verified 08/11/21 13:14 and anxiety with titration codeine [CODEINE] Allergy Intermediate INSOMNIA Verified 08/11/21 13:14 Penicillins [PENICILLINS] Allergy Intermediate RASH Verified 08/11/21 13:14 epinephrine [EPINEPHRINE] AdvReac Intermediate Hypertensio Verified 08/11/21 13:14 n escitalopram [From LEXAPRO] AdvReac Intermediate NIGHTMARES Verified 08/11/21 13:14 sertraline [From ZOLOFT] AdvReac Intermediate NIGHTMARES Verified 08/11/21 13:14 sulfamethoxazole AdvReac Intermediate STOMACH Verified 08/11/21 13:14 [From BACTRIM] UPSET Review of Systems Review of Systems: Yes all other systems are reviewed and are negative Constitutional: Constitutional: Denies chills and Denies fever(s) Cardiovascular: Cardiovascular: Denies chest pain and Denies rapid heart rate Respiratory: Respiratory: Reports no additional respiratory complaints [facility] Past Medical History Medical History Abnormal nuclear stress test Anxiety Asthma CAD (coronary artery disease) Chronic respiratory failure COPD (chronic obstructive pulmonary disease) COVID-19 vaccine series completed Generalized anxiety disorder GERD (gastroesophageal reflux disease) History of major depression HLD (hyperlipidemia) Hx of small bowel obstruction IBS (irritable bowel syndrome) Panic disorder Pneumonitis Smoking Tardive dyskinesia Surgical History H/O bilateral inguinal hernia repair Hx of cholecystectomy Hx of colonoscopy Stented coronary artery Family History Family History Father No problems noted. Mother No problems noted. Social History Social History Household Members: Other Housing: House Are you a primary resident care associate to a significant other at home: No Do you presently have visiting nurse or other home services: No Unable to assess alcohol history related to: Unknown Alcohol intake: never Patient Tobacco Use Status: Former Tobacco user Quit Date: 3 yrs ago Tobacco use type: Cigarette Years Smoked: 30+ e-Cigarette/Vaping Use: Never Used Second Hand Smoke Exposure: No Use of substances other than those prescribed or required for medical reasons: No Advance Directives: No Advance Directives Information Provided: No service: No Sexual orientation: Lesbian/Triana/Homosexual Physical Exam Vital Signs: Vital Signs: Last Vital Signs Temp 97.4 F 08/28/21 15:39 Pulse 82 08/28/21 15:39 Resp 17 08/28/21 11:53 BP 110/64 08/28/21 15:39 Pulse Ox 96 08/28/21 15:39 BMI result Body Mass Index 23.5 Const: General: cooperative, comfortable, no acute distress, well developed and alert Nutritional Appearance: well nourished Orientation/consciousness: patient oriented x3 HENMT: Head: Yes normal to inspection General nose exam: Normal external nose present Face and sinus: Yes normal facial exam Mouth: Normal oral and palatal mucosa present Neck: Neck: Yes normal visual inspection, Yes full ROM, Yes no lymphadenopathy and Yes no meningeal signs Chest: Chest palpation & inspection: normal inspection of the chest Resp: Effort & Inspection: normal respiratory effort Auscultation: clear to auscultation bilaterally Cardio: Jugular venous distension: no JVD Rate: regular rate Rhythm: regular rhythm GI: Inspection: Yes normal to inspection Palpation (GI): Soft to palpation, not firm, nontender and no guarding Skin: General skin exam: no rashes or lesions noted, elasticity normal and turgor normal Neuro: General: patient oriented x3 and no meningeal signs MDM - Psych Lab Data Result diagrams: 08/28/21 12:24 08/28/21 12:24 Labs: Lab Results 08/28/21 08/28/21 08/28/21 Range/Units 12:24 12:24 12:24 WBC 7.9 (4.8-10.8) X10*3/uL RBC 5.51 (4.60-5.80) X10*6/uL Hgb 16.2 (14.0-18.0) g/dl Hct 48.6 (42.0-52.0) % MCV 88.2 (80.0-98.0) fL MCH 29.4 (27.0-33.0) pg MCHC 33.3 (31.0-36.0) g/dl RDW 12.3 (11.0-16.0) % Plt Count 308 (160-400) X10*3/uL MPV 8.4 L (9.4-12.4) fL Immature Gran % (Auto) 0.3 (0.0-0.4) % Neut % (Auto) 68.7 (45-73) % Lymph % (Auto) 23.4 (20-40) % [place] % (Auto) 6.3 (2-11) % Eos % (Auto) 0.9 (0-4) % Baso % (Auto) 0.4 (0-2) % Lymph # (Auto) 1.9 (1.2-4.9) X10*3/uL [place] # (Auto) 0.5 (0.1-1.2) X10*3/uL Eos # (Auto) 0.1 (0.0-0.4) X10*3/uL Baso # (Auto) 0.0 (0.0-0.2) X10*3/uL Abs Immat Gran (auto) 0.02 (0.00-0.03) X10*3/uL Absolute Neuts (auto) 5.4 (2.0-8.3) x10*3/uL Absolute Nucleated RBC 0.000 (0.0-0.012) X10*3/uL Nucleated RBC % (auto) 0.0 (0.0-0.2) /100WBC Sodium 139 (135-145) mmol/L Potassium 4.4 D (3.3-5.1) mmol/L Chloride 103 (96-108) mmol/L Carbon Dioxide 26 (22-29) mmol/L Anion Gap 14 (12-20) BUN 15 (9-16) mg/dL Creatinine 1.12 (0.5-1.4) mg/dL Estim Creat Clear Calc 58.1 Estimated GFR > 60 Random Glucose 94 (60-115) mg/dL Calcium 10.1 D (8.4-10.2) mg/dL Total Bilirubin 0.5 (0.0-1.0) mg/dL AST 16 D (5-37) U/L ALT 14 (0-40) U/L Alkaline Phosphatase 67 D (39-117) U/L Total Protein 7.7 (6.5-8.0) g/dL Albumin 4.6 (3.5-5.0) g/dL Urine Opiates Screen (Not Detect) Urine Fentanyl Screen (Not Detect) Ur Barbiturates Screen (Not Detect) Ur Phencyclidine Scrn (Not Detect) Ur Amphetamines Screen (Not Detect) U Benzodiazepines Scrn (Not Detect) Urine Cocaine Screen (Not Detect) U Marijuana (THC) Screen (Not Detect) COVID-19 (MARRY) Negative (Negative) COVID-19 Clin Com See Note 08/28/21 Range/Units 12:24 WBC (4.8-10.8) X10*3/uL RBC (4.60-5.80) X10*6/uL Hgb (14.0-18.0) g/dl Hct (42.0-52.0) % MCV (80.0-98.0) fL MCH (27.0-33.0) pg MCHC (31.0-36.0) g/dl RDW (11.0-16.0) % Plt Count (160-400) X10*3/uL MPV (9.4-12.4) fL Immature Gran % (Auto) (0.0-0.4) % Neut % (Auto) (45-73) % Lymph % (Auto) (20-40) % [place] % (Auto) (2-11) % Eos % (Auto) (0-4) % Baso % (Auto) (0-2) % Lymph # (Auto) (1.2-4.9) X10*3/uL [place] # (Auto) (0.1-1.2) X10*3/uL Eos # (Auto) (0.0-0.4) X10*3/uL Baso # (Auto) (0.0-0.2) X10*3/uL Abs Immat Gran (auto) (0.00-0.03) X10*3/uL Absolute Neuts (auto) (2.0-8.3) x10*3/uL Absolute Nucleated RBC (0.0-0.012) X10*3/uL Nucleated RBC % (auto) (0.0-0.2) /100WBC Sodium (135-145) mmol/L Potassium (3.3-5.1) mmol/L Chloride (96-108) mmol/L Carbon Dioxide (22-29) mmol/L Anion Gap (12-20) BUN (9-16) mg/dL Creatinine (0.5-1.4) mg/dL Estim Creat Clear Calc Estimated GFR Random Glucose (60-115) mg/dL Calcium (8.4-10.2) mg/dL Total Bilirubin (0.0-1.0) mg/dL AST (5-37) U/L ALT (0-40) U/L Alkaline Phosphatase (39-117) U/L Total Protein (6.5-8.0) g/dL Albumin (3.5-5.0) g/dL Urine Opiates Screen Not Detected (Not Detect) Urine Fentanyl Screen Not Detected (Not Detect) Ur Barbiturates Screen Not Detected (Not Detect) Ur Phencyclidine Scrn Not Detected (Not Detect) Ur Amphetamines Screen Not Detected (Not Detect) U Benzodiazepines Scrn Not Detected (Not Detect) Urine Cocaine Screen Not Detected (Not Detect) U Marijuana (THC) Screen Not Detected (Not Detect) COVID-19 (MARRY) (Negative) COVID-19 Clin Com Discharge Plan Discharge Clinical Impression: Depression, Anxiety Prescriptions: No Action quetiapine 25 mg tablet 12.5 mg PO BID RF: 0 famotidine 40 mg tablet 40 mg PO BID RF: 0 nortriptyline 10 mg capsule 20 mg PO BEDTIME RF: 0 lorazepam 1 mg tablet 1 tab PO TID PRN (Reason: Anxiety) RF: 0 dicyclomine 10 mg capsule 30 mg PO TIDAC RF: 0 Trelegy Ellipta 200-62.5-25 mcg blister with device 1 puff inhalation DAILY RF: 0 cholecalciferol (vitamin D3) [Vitamin D3] 25 mcg (1,000 unit) Tablet 50 mcg PO DAILY RF: 0 simethicone 80 mg Tablet,Chewable 160 mg PO TIDAC RF: 0 polyethylene glycol 3350 [Miralax] 17 gram/dose Powder 17 g PO DAILY RF: 0 amlodipine 10 mg Tablet 10 mg PO DAILY RF: 0 levalbuterol tartrate 45 mcg/actuation Hfa Aerosol Inhaler 2 puff INHALATION Q4H PRN (Reason: Respiratory Distress) RF: 0
[2021-08-28 11:46] VITALS: BP 137/85; PULSE 110; RESP 17; TEMP 36.2; O2SAT 98; BMI 23.5
[2021-08-28 11:53] VITALS: BP 137/85; PULSE 110; RESP 17; TEMP 36.2; O2SAT 98
[2021-08-28] MEDS: LORazepam 1 MG TABLET PO ×2 (12:00→16:56)
[2021-08-28 12:33] LABS: MANUAL DIFF FLAG NO
[2021-08-28 12:35] LABS: Basophils Percent Auto 0.4 % (0-2); Eosinophils Absolute Auto 0.1 X10*3/uL (0.0-0.4); Eosinophils Percent Auto 0.9 % (0-4); Hematocrit 48.6 % (42.0-52.0); Hemoglobin 16.2 g/dl (14.0-18.0); Imm Gran Abs Auto 0.02 X10*3/uL (0.00-0.03); Imm Gran Pct Auto 0.3 % (0.0-0.4); Lymphocytes Absolute Auto 1.9 X10*3/uL (1.2-4.9); Lymphocytes Percent Auto 23.4 % (20-40); Mean Corpuscular HGB Conc 33.3 g/dl (31.0-36.0); Mean Corpuscular Hemoglobin 29.4 pg (27.0-33.0); Mean Corpuscular Volume 88.2 fL (80.0-98.0); Mean Platelet Volume 8.4 fL (9.4-12.4); Monocytes Absolute Auto 0.5 X10*3/uL (0.1-1.2); Monocytes Percent Auto 6.3 % (2-11); Neutrophils Absolute Auto 5.4 x10*3/uL (2.0-8.3); Neutrophils Percent Auto 68.7 % (45-73); Platelet Count 308 X10*3/uL (160-400); Red Blood Count 5.51 X10*6/uL (4.60-5.80); Red Cell Distribution Width 12.3 % (11.0-16.0); White Blood Count 7.9 X10*3/uL (4.8-10.8)
[2021-08-28 12:50] LABS: COVID-19 Test Negative (Negative); IDNOW Serial# 9DD0AD1C
--- NOTE | 2021-08-28 12:52 | PHA.MEDREC ---
MED REC COMPLETE, NO ISSUES. Pharmacy Consult ? Medication Reconciliation Pharmacy has completed the medication reconciliation.
[2021-08-28 12:54] LABS: Alanine Aminotransferase 14 U/L (0-40); Albumin Level 4.6 g/dL (3.5-5.0); Alkaline Phosphatase 67 U/L (39-117); Anion Gap 14 (12-20); Aspartate Amino Transferase 16 U/L (5-37); Bilirubin Total 0.5 mg/dL (0.0-1.0); Blood Urea Nitrogen 15 mg/dL (9-16); Calcium 10.1 mg/dL (8.4-10.2); Carbon Dioxide 26 mmol/L (22-29); Chloride 103 mmol/L (96-108); Creatinine Clr Calc Pharmacy 58.1; Estimated Glomerular Filt Rate > 60; Glucose Random 94 mg/dL (60-115); Potassium 4.4 mmol/L (3.3-5.1); Sodium 139 mmol/L (135-145); Total Protein 7.7 g/dL (6.5-8.0)
[2021-08-28 12:55] LABS: Amphetamine Screen Urine Not Detected (Not Detect); Barbiturates, Urine Not Detected (Not Detect); Benzodiazepines Screen Urine Not Detected (Not Detect); Cannabinoid Screen Urine Not Detected (Not Detect); Cocaine Screen Urine Not Detected (Not Detect); Fentanyl, urine Not Detected (Not Detect); Opiate Screen Urine Not Detected (Not Detect); Phencyclidine Screen Urine Not Detected (Not Detect)
[2021-08-28 15:39] VITALS: BP 110/64; PULSE 82; TEMP 36.3; O2SAT 96
[2021-08-28] MEDS: Dicyclomine HCl 10 MG CAPSULE 30 MG PO (18:12)
[2021-08-28] MEDS: Famotidine 20 MG TABLET 40 MG PO (20:46)
[2021-08-28] MEDS: QUEtiapine Fumarate 25 MG TABLET 12.5 MG PO (20:46)
[2021-08-28] MEDS: Nortriptyline HCl 10 MG CAPSULE 20 MG PO (20:48)
[2021-08-28 22:58] VITALS: BP 108/68; PULSE 84; RESP 16; TEMP 36.3; O2SAT 97
--- NOTE | 2021-08-29 05:55 | PC.ADMIT ---
Pt is a 71 year old male admitted to the unit after referral from the C[place] team [place] [facility] Arrived on unit at 2230, legal status CV. Medical issues: asthma, COPD, CAD, GERD, hyperlipidemia, hx bilaterall inguinal hernia repair, hx intestinal block 2020. Substance use: pt denies current or history of alcohol or substance use. Precipitant: Pt states this past April he had been experiencing abdominal pain for which he went to the ED three times. Pt was told he was making it up and just had IBS, and was sent home on gabapentin and nortriptyline. Pt reports the pain subsided for a couple of days, however he again began experiencing excruciating abdominal pain and returned to the ED; this time he was diagnosed with an intestinal block and was hospitalized for 4-5 days. During hospitalization pt had an NG-tube and was NPO, and was therefore not given any of his prescribed medications. Pt has also recently began seeing new outpatient providers within the last couple of months, and states that after being discharged from the hospital his prescriber did not re-start his medications; therefore, pt states he re-started himself on nortriptyline 20 mg. He reports seeing his prescriber once a month, and his next appt is not until the end of August, which will be his third appointment with her. Pt reports that he has been experiencing a lot of anxiety, in part due to his recent medical issues and mis-diagnosis, and also due to not being on his proper medications. He states that he has not been leaving the house and has been crying very often. He does report his sleep and appetite have been ok. Pt reported having some suicidal thoughts lately, and though denies a specific plan states that he had been starting to think of different things he could do. He denies any perceptual disturbances. At the time of admission, pt presents quite depressed and tearful. Denies current suicidal thoughts. Pt is also hoping to speak to the doctor about ECT, stating that he had had it in the past with good effect. Nurse to nurse completed prior to admission. Medications were verified with outpatient pharmacy. Dr. Felix notified of admission and orders obtained. Pt placed on 15 minute safety checks, contracts for unit safety.
[2021-08-29 08:45] VITALS: BP 114/61; PULSE 85; RESP 18; TEMP 36.9; O2SAT 96
[2021-08-29] MEDS: polyethylene glycoL 3350 17 GM POWD.PACK PO (08:46)
[2021-08-29] MEDS: Famotidine 20 MG TABLET 40 MG PO ×2 (08:47→21:13)
[2021-08-29] MEDS: Cholecalciferol (Vitamin D3) 25 MCG TABLET 50 MCG PO (08:47)
[2021-08-29 08:48] VITALS: BP 114/61; PULSE 85
[2021-08-29] MEDS: amLODIPine Besylate 10 MG TABLET PO (08:48)
[2021-08-29] MEDS: Dicyclomine HCl 10 MG CAPSULE 30 MG PO ×3 (08:48→16:38)
[2021-08-29] MEDS: LORazepam 1 MG TABLET PO ×3 (09:03→22:13)
--- NOTE | 2021-08-29 15:34 | HO.PSYADMNOT ---
HPI Date of Service: 08/29/21 Chief Complaint: SI HPI Narrative: pt reports he recently had SBO and was decompressed and discharged from the hospital. that was in late june. since then he has been having severe anxiety with panic attacks as well as continued depression. his activities, such as driving and going to the store, have dropped off greatly since medical discharge. per CARE team benjamín has been having passive SI, no intent or plan. he expressed hopelessness and reported poor sleep and appetite. 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 ECT has been moderately helpful in the past but may no longer been a reasonable option, and pt has not benefitted from TMS. he reports trials of lithium, wellbutrin, zyprexa, effexor, zoloft, lexapro. he felt zombified from effexor and zyprexa after taking them a few weeks and has ADRs of nightmares listed for zoloft and lexapro. wellbutrin made him dizzy. he can't recall what happened with lithium... perhaps nothing, and that was the problem. he denies having tried MAOI, stimulant, cymbalta, or abilify. agreeable to low-dose abilify to target anxiety, ruminativeness, depression. will start 2 mg daily today. also planning to increase pamelor once tolerability of abilify is established. meds reviewed and reconciled. will broach ECT with Dr. Peña. Past Psychiatric History: History of good response to ECT past history of panic disorder has not been able to stabilize now for number of years despite outpatient therapy counseling [facility]. seen at [facility] currently. h/o multiple inpatient stays, ECT, TMS. Medical Evaluation Reviewed: Yes [facility] Medical History Abnormal nuclear stress test Anxiety Asthma CAD (coronary artery disease) Chronic respiratory failure COPD (chronic obstructive pulmonary disease) COVID-19 vaccine series completed Generalized anxiety disorder GERD (gastroesophageal reflux disease) History of major depression HLD (hyperlipidemia) Hx of small bowel obstruction IBS (irritable bowel syndrome) Panic disorder Pneumonitis Smoking Tardive dyskinesia Surgical History H/O bilateral inguinal hernia repair Hx of cholecystectomy Hx of colonoscopy Stented coronary artery Family History: grandfather suicided via firearm. 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 He has a supportive family including sister and mother. Substance History: no substance misuse Trauma History: no history of sexual or physical trauma Diagnostics Vital Signs (24Hr): Vital Signs - 24 hr 08/28/21 15:39 08/28/21 22:58 08/29/21 08:45 Temperature 97.4 F 97.3 F 98.5 F Pulse Rate 82 84 85 Respiratory Rate 16 18 Blood Pressure 110/64 108/68 114/61 Pulse Oximetry 96 97 96 08/29/21 08:48 Temperature Pulse Rate 85 Respiratory Rate Blood Pressure 114/61 Pulse Oximetry BMI result Body Mass Index 23.5 Labs Results: 08/28/21 12:24 08/28/21 12:24 Labs: Laboratory Results - last 48 hr 08/28/21 08/28/21 08/28/21 12:24 12:24 12:24 WBC 7.9 RBC 5.51 Hgb 16.2 Hct 48.6 MCV 88.2 MCH 29.4 MCHC 33.3 RDW 12.3 Plt Count 308 MPV 8.4 L Immature Gran % (Auto) 0.3 Neut % (Auto) 68.7 Lymph % (Auto) 23.4 [place] % (Auto) 6.3 Eos % (Auto) 0.9 Baso % (Auto) 0.4 Lymph # (Auto) 1.9 [place] # (Auto) 0.5 Eos # (Auto) 0.1 Baso # (Auto) 0.0 Abs Immat Gran (auto) 0.02 Absolute Neuts (auto) 5.4 Absolute Nucleated RBC 0.000 Nucleated RBC % (auto) 0.0 Sodium 139 Potassium 4.4 D Chloride 103 Carbon Dioxide 26 Anion Gap 14 BUN 15 Creatinine 1.12 Estim Creat Clear Calc 58.1 Estimated GFR > 60 Random Glucose 94 Calcium 10.1 D Total Bilirubin 0.5 AST 16 D ALT 14 Alkaline Phosphatase 67 D Total Protein 7.7 Albumin 4.6 Urine Opiates Screen Urine Fentanyl Screen Ur Barbiturates Screen Ur Phencyclidine Scrn Ur Amphetamines Screen U Benzodiazepines Scrn Urine Cocaine Screen U Marijuana (THC) Screen COVID-19 (MARRY) Negative COVID-19 Clin Com See Note 08/28/21 12:24 WBC RBC Hgb Hct MCV MCH MCHC RDW Plt Count MPV Immature Gran % (Auto) Neut % (Auto) Lymph % (Auto) [place] % (Auto) Eos % (Auto) Baso % (Auto) Lymph # (Auto) [place] # (Auto) Eos # (Auto) Baso # (Auto) Abs Immat Gran (auto) Absolute Neuts (auto) Absolute Nucleated RBC Nucleated RBC % (auto) Sodium Potassium Chloride Carbon Dioxide Anion Gap BUN Creatinine Estim Creat Clear Calc Estimated GFR Random Glucose Calcium Total Bilirubin AST ALT Alkaline Phosphatase Total Protein Albumin Urine Opiates Screen Not Detected Urine Fentanyl Screen Not Detected Ur Barbiturates Screen Not Detected Ur Phencyclidine Scrn Not Detected Ur Amphetamines Screen Not Detected U Benzodiazepines Scrn Not Detected Urine Cocaine Screen Not Detected U Marijuana (THC) Screen Not Detected COVID-19 (MARRY) COVID-19 [employer] Meds/Allergies Meds Home Medications Acetaminophen (Acetaminophen 325 Mg Tablet) 650 mg PO Q6H PRN PRN Reason: Headache/Pain Mild Scale (1-3) Al Hydroxide/Mg Hydroxide (Magnesium Hydrox/Alum Hydrox 30 Ml Oral.Susp) 30 ml PO Q6H PRN PRN Reason: Heartburn/Nausea Amlodipine Besylate (Amlodipine Besylate 10 Mg Tablet) 10 mg PO DAILY [facility]; Protocol Last Admin: 08/29/21 08:48 Dose: 10 mg Documented by: Aripiprazole (Aripiprazole 2 Mg Tablet) 2 mg PO DAILY@1700 [facility] Dicyclomine HCl (Dicyclomine Hcl 10 Mg Capsule) 30 mg PO TIDAC [facility] Last Admin: 08/29/21 12:07 Dose: 30 mg Documented by: Famotidine (Famotidine 20 Mg Tablet) 40 mg PO BID [facility] Last Admin: 08/29/21 08:47 Dose: 40 mg Documented by: Hydroxyzine HCl (Hydroxyzine Hcl 25 Mg Tablet) 25 mg PO BEDTIME PRN PRN Reason: Anxiety Lorazepam (Lorazepam 1 Mg Tablet) 1 mg PO TID PRN PRN Reason: Anxiety Last Admin: 08/29/21 14:19 Dose: 1 mg Documented by: Magnesium Hydroxide (Milk Of Magnesia 30 Ml Oral.Susp) 30 ml PO DAILY PRN PRN Reason: Constipation Non-Formulary Medication (Tnsokxzjfar-Isvrgcthi-Capinnkl [Trelegy Ellipta]) 1 puff INHALE DAILY [facility] Non-Formulary Medication (Levalbuterol) 45 mcg INHALE Q2H PRN PRN Reason: Shortness of Breath Nortriptyline HCl (Nortriptyline Hcl 10 Mg Capsule) 20 mg PO BEDTIME [facility] Last Admin: 08/28/21 20:48 Dose: 20 mg Documented by: Pharmacy Consult (Consult Rx Perform Med Rec) 1 each MISCELLANE ONCE PRN PRN Reason: Consult order Polyethylene Glycol (Polyethylene Glycol 3350 17 Gm Powd.Pack) 17 gm PO DAILY [facility] Last Admin: 08/29/21 08:46 Dose: 17 gm Documented by: Quetiapine Fumarate (Quetiapine Fumarate 25 Mg Tablet) 12.5 mg PO BID PRN PRN Reason: agitation Simethicone (Simethicone 80 Mg Tab.Chew) 160 mg PO TIDAC PRN PRN Reason: flatus Trazodone HCl (Trazodone Hcl 50 Mg Tablet) 50 mg PO BEDTIME PRN PRN Reason: Insomnia Vitamin D (Cholecalciferol (Vitamin D3) 25 Mcg Tablet) 50 mcg PO DAILY [facility] Last Admin: 08/29/21 08:47 Dose: 50 mcg Documented by: Allergies Allergies Allergy/AdvReac Type Severity Reaction Status Date / Time lamotrigine [From LAMICTAL] Allergy Severe agitation Verified 08/11/21 13:14 and anxiety with titration codeine [CODEINE] Allergy Intermediate INSOMNIA Verified 08/11/21 13:14 Penicillins [PENICILLINS] Allergy Intermediate RASH Verified 08/11/21 13:14 epinephrine [EPINEPHRINE] AdvReac Intermediate Hypertensio Verified 08/11/21 13:14 n escitalopram [From LEXAPRO] AdvReac Intermediate NIGHTMARES Verified 08/11/21 13:14 sertraline [From ZOLOFT] AdvReac Intermediate NIGHTMARES Verified 08/11/21 13:14 sulfamethoxazole AdvReac Intermediate STOMACH Verified 08/11/21 13:14 [From BACTRIM] UPSET Mental Status Exam Mental Status Exam Narrative: appropriately dressed and groomed, no PMA/PMR, cooperative with interview. speech somewhat soft, nml amount and rate, flattened prosody. thoughts linear and logical with no delusions or paranoia. affect constricted, normo-intense, non-labile. mood depressed and anxious. no AVH expressed. no HI. passive SI. Assessment & Plan Assessment & Plan (1) Major depressive disorder, recurrent episode, severe with anxious distress: Status: Acute Code(s): F33.2 - Major depressive disorder, recurrent severe without psychotic features Assessment and Plan: start abilify 2 mg daily. plan to titrate pamelor up as well. discuss ECT option with Casey. otherwise continue outpt regimen. Reason for continued inpatient stay Substantial Risk for: inability to function and rapid decompensation
[2021-08-29] MEDS: ARIPiprazole 2 MG TABLET PO (18:16)
[2021-08-29 21:08] VITALS: BP 124/74; PULSE 95; RESP 18; TEMP 36.4; O2SAT 94
[2021-08-29] MEDS: Nortriptyline HCl 10 MG CAPSULE 20 MG PO (21:13)
[2021-08-30 08:20] VITALS: BP 121/71; PULSE 87; RESP 16; TEMP 36.9; O2SAT 96
[2021-08-30 08:50] VITALS: BP 112/70; PULSE 83; RESP 16; TEMP 36.9; O2SAT 96
[2021-08-30] MEDS: Dicyclomine HCl 10 MG CAPSULE 30 MG PO ×3 (09:00→17:01)
[2021-08-30] MEDS: polyethylene glycoL 3350 17 GM POWD.PACK PO (09:49)
[2021-08-30 09:50] VITALS: BP 112/70; PULSE 83
[2021-08-30] MEDS: Famotidine 20 MG TABLET 40 MG PO ×2 (09:50→20:43)
[2021-08-30] MEDS: Cholecalciferol (Vitamin D3) 25 MCG TABLET 50 MCG PO (09:50)
[2021-08-30] MEDS: amLODIPine Besylate 10 MG TABLET PO (09:50)
[2021-08-30] MEDS: LORazepam 1 MG TABLET PO ×2 (10:47→21:28)
[2021-08-30 15:34] LABS: Estimated Average Glucose 114 mg/dL; Hemoglobin A1c % 5.6 %
[2021-08-30 15:44] LABS: Cholesterol 213 mg/dL; HDL Cholesterol 46 mg/dL; LDL Cholesterol Calculated 110 mg/dl; Triglycerides 289 mg/dL
[2021-08-30 16:06] LABS: TSH reflex Free T4 1.44 uIU/mL (0.32-4.0)
[2021-08-30 16:13] LABS: Folate 5.2 ng/mL (> or = 4.0); Vitamin B12 541 pg/mL (200-900)
--- NOTE | 2021-08-30 16:24 | P.PNPSI_ITS ---
Subjective Subjective Date of Service: 08/30/21 Reason For Visit: SI Interim History: pt feeling quite depressed today, reports spending a lot of time crying and doesn't know why. overwhelmed and confused at his state. review medications from last hospitalization. agreeable to increase pamelor to 50 mg tonight. also denies any problematic side effects from abilify, agrees to increase dose to 5 mg this evening. asks about Vit D levels, states he has h/o low level but has been supplementing. MD will check Vitamin D, B12, folate, TSH. pt reports he is eating and sleeping well. no other complaints or requests. per staff, attending groups. very anxious and depressed. slept well after 1030 pm. eating well. no SI/HI. Mental Status Exam Mental Status Exam Narrative: appropriately dressed and groomed, no PMA/PMR, cooperative with interview. speech somewhat soft, nml amount and rate, flattened prosody. thoughts linear and logical with no delusions or paranoia. affect constricted, normo-intense, min-labile with some teariness. mood depressed and anxious. no AVH expressed. no SI/HI expressed. Diagnostics Vital Signs (24Hr): Vital Signs - 24 hr 08/29/21 21:08 08/30/21 08:50 08/30/21 09:50 Temperature 97.6 F 98.4 F Pulse Rate 95 83 83 Respiratory Rate 18 16 Blood Pressure 124/74 112/70 112/70 Pulse Oximetry 94 96 BMI result Body Mass Index 23.5 Labs Results: 08/28/21 12:24 08/28/21 12:24 Labs: Laboratory Results - last 48 hr 08/30/21 08/30/21 08/30/21 14:51 14:51 14:51 Estimat Average Glucose 114 Hemoglobin A1c % 5.6 Triglycerides 289 Cholesterol 213 LDL Cholesterol, Calc 110 HDL Cholesterol 46 D Vitamin B12 541 Folate 5.2 TSH 1.44 Medications Medications Current Medications Acetaminophen (Acetaminophen 325 Mg Tablet) 650 mg PO Q6H PRN PRN Reason: Headache/Pain Mild Scale (1-3) Al Hydroxide/Mg Hydroxide (Magnesium Hydrox/Alum Hydrox 30 Ml Oral.Susp) 30 ml PO Q6H PRN PRN Reason: Heartburn/Nausea Amlodipine Besylate (Amlodipine Besylate 10 Mg Tablet) 10 mg PO DAILY [facility]; Protocol Last Admin: 08/30/21 09:50 Dose: 10 mg Documented by: Aripiprazole (Aripiprazole 5 Mg Tablet) 5 mg PO DAILY@1700 [facility] Dicyclomine HCl (Dicyclomine Hcl 10 Mg Capsule) 30 mg PO TIDAC [facility] Last Admin: 08/30/21 12:54 Dose: 30 mg Documented by: Famotidine (Famotidine 20 Mg Tablet) 40 mg PO BID [facility] Last Admin: 08/30/21 09:50 Dose: 40 mg Documented by: Hydroxyzine HCl (Hydroxyzine Hcl 25 Mg Tablet) 25 mg PO BEDTIME PRN PRN Reason: Anxiety Lorazepam (Lorazepam 1 Mg Tablet) 1 mg PO TID PRN PRN Reason: Anxiety Last Admin: 08/30/21 10:47 Dose: 1 mg Documented by: Magnesium Hydroxide (Milk Of Magnesia 30 Ml Oral.Susp) 30 ml PO DAILY PRN PRN Reason: Constipation Non-Formulary Medication (Levalbuterol) 45 mcg INHALE Q2H PRN PRN Reason: Shortness of Breath Last Admin: 08/30/21 10:46 Dose: 45 mcg Documented by: Nortriptyline HCl (Nortriptyline Hcl 25 Mg Capsule) 50 mg PO BEDTIME [facility] Pharmacy Consult (Consult Rx Perform Med Rec) 1 each MISCELLANE ONCE PRN PRN Reason: Consult order Polyethylene Glycol (Polyethylene Glycol 3350 17 Gm Powd.Pack) 17 gm PO DAILY [facility] Last Admin: 08/30/21 09:49 Dose: 17 gm Documented by: Quetiapine Fumarate (Quetiapine Fumarate 25 Mg Tablet) 12.5 mg PO BID PRN PRN Reason: agitation Simethicone (Simethicone 80 Mg Tab.Chew) 160 mg PO TIDAC PRN PRN Reason: flatus Trazodone HCl (Trazodone Hcl 50 Mg Tablet) 50 mg PO BEDTIME PRN PRN Reason: Insomnia Vitamin D (Cholecalciferol (Vitamin D3) 25 Mcg Tablet) 50 mcg PO DAILY [facility] Last Admin: 08/30/21 09:50 Dose: 50 mcg Documented by: Allergies Allergies Allergy/AdvReac Type Severity Reaction Status Date / Time lamotrigine [From LAMICTAL] Allergy Severe agitation Verified 08/11/21 13:14 and anxiety with titration codeine [CODEINE] Allergy Intermediate INSOMNIA Verified 08/11/21 13:14 Penicillins [PENICILLINS] Allergy Intermediate RASH Verified 08/11/21 13:14 epinephrine [EPINEPHRINE] AdvReac Intermediate Hypertensio Verified 08/11/21 13:14 n escitalopram [From LEXAPRO] AdvReac Intermediate NIGHTMARES Verified 08/11/21 13:14 sertraline [From ZOLOFT] AdvReac Intermediate NIGHTMARES Verified 08/11/21 13:14 sulfamethoxazole AdvReac Intermediate STOMACH Verified 08/11/21 13:14 [From BACTRIM] UPSET Assessment & Plan Assessment & Plan (1) Major depressive disorder, recurrent episode, severe with anxious distress: Status: Acute Code(s): F33.2 - Major depressive disorder, recurrent severe without psychotic features Assessment and Plan: started abilify 2 mg daily 08/29, dosing increased to 5 mg daily as of 08/30. pamelor increased from 20 mg QHS to 50 mg QHS as of 08/30. ECT is an option per Casey. otherwise continued outpt regimen. I spent minutes with the patient and/or on the patient floor today, greater than?50% of which was spent counseling/coordinating care. Reason for contiued inpatient stay Substantial Risk for: harm to self, inability to function and rapid decompensation
[2021-08-30] MEDS: ARIPiprazole 5 MG TABLET PO (17:01)
[2021-08-30 19:57] VITALS: BP 123/78; PULSE 104; RESP 18; TEMP 36.4; O2SAT 98
[2021-08-30] MEDS: Nortriptyline HCl 25 MG CAPSULE 50 MG PO (20:43)
[2021-08-30] MEDS: Magnesium Hydrox/Alum Hydrox 30 ML ORAL.SUSP PO (21:51)
[2021-08-31 07:00] VITALS: BMI 24.7
[2021-08-31] MEDS: Dicyclomine HCl 10 MG CAPSULE 30 MG PO ×3 (08:09→17:33)
[2021-08-31] MEDS: polyethylene glycoL 3350 17 GM POWD.PACK PO (09:05)
[2021-08-31] MEDS: Famotidine 20 MG TABLET 40 MG PO ×2 (09:05→21:01)
[2021-08-31 09:06] VITALS: BP 121/71; PULSE 87
[2021-08-31] MEDS: Cholecalciferol (Vitamin D3) 25 MCG TABLET 50 MCG PO (09:06)
[2021-08-31] MEDS: amLODIPine Besylate 10 MG TABLET PO (09:06)
[2021-08-31 12:19] VITALS: BP 124/79; PULSE 101; RESP 16; TEMP 36.7; O2SAT 99
[2021-08-31] MEDS: LORazepam 0.5 MG TABLET PO (12:30)
--- NOTE | 2021-08-31 12:38 | P.PNPSI_ITS ---
Subjective Subjective Date of Service: 08/31/21 Reason For Visit: SI Interim History: pt reports he can feel the medication, explaining he feels a bit heavy and tired. also notes he has not had a panic attack yet today, which is a departure from his usual pattern of late. also crying less. discuss his desire to change outpt prescribers. informs pt ECT is not ruled out, but he states he would like to try meds first. agrees to move abilify to as the 5 mg dose may have been a bit sedating for him. per staff, dep/anx continue. watching TV in milieu. social with select peer. got ativan for insomnia last NOC. Mental Status Exam Mental Status Exam Narrative: appropriately dressed and groomed, no PMA/PMR, cooperative with interview. speech somewhat soft, nml amount and rate, flattened prosody. thoughts linear and logical with no delusions or paranoia. affect constricted, normo-intense, non-labile. mood depressed and anxious. no AVH expressed. no SI/HI expressed. Diagnostics Vital Signs (24Hr): Vital Signs - 24 hr 08/30/21 19:57 08/31/21 09:06 08/31/21 12:19 Temperature 97.6 F 98.0 F Pulse Rate 104 H 87 101 H Respiratory Rate 18 16 Blood Pressure 123/78 121/71 124/79 Pulse Oximetry 98 99 BMI result Body Mass Index 24.7 Labs Results: 08/28/21 12:24 08/28/21 12:24 Labs: Laboratory Results - last 48 hr 08/30/21 08/30/21 08/30/21 14:51 14:51 14:51 Estimat Average Glucose 114 Hemoglobin A1c % 5.6 Triglycerides 289 Cholesterol 213 LDL Cholesterol, Calc 110 HDL Cholesterol 46 D Vitamin B12 541 Folate 5.2 TSH 1.44 Medications Medications Current Medications Acetaminophen (Acetaminophen 325 Mg Tablet) 650 mg PO Q6H PRN PRN Reason: Headache/Pain Mild Scale (1-3) Al Hydroxide/Mg Hydroxide (Magnesium Hydrox/Alum Hydrox 30 Ml Oral.Susp) 30 ml PO Q6H PRN PRN Reason: Heartburn/Nausea Last Admin: 08/30/21 21:51 Dose: 30 ml Documented by: Amlodipine Besylate (Amlodipine Besylate 10 Mg Tablet) 10 mg PO DAILY [facility]; Protocol Last Admin: 08/31/21 09:06 Dose: 10 mg Documented by: Aripiprazole (Aripiprazole 5 Mg Tablet) 5 mg PO BEDTIME [facility] Dicyclomine HCl (Dicyclomine Hcl 10 Mg Capsule) 30 mg PO TIDAC [facility] Last Admin: 08/31/21 12:23 Dose: 30 mg Documented by: Famotidine (Famotidine 20 Mg Tablet) 40 mg PO BID [facility] Last Admin: 08/31/21 09:05 Dose: 40 mg Documented by: Hydroxyzine HCl (Hydroxyzine Hcl 25 Mg Tablet) 25 mg PO BEDTIME PRN PRN Reason: Anxiety Lorazepam (Lorazepam 1 Mg Tablet) 1 mg PO TID PRN PRN Reason: Anxiety Last Admin: 08/30/21 21:28 Dose: 1 mg Documented by: Magnesium Hydroxide (Milk Of Magnesia 30 Ml Oral.Susp) 30 ml PO DAILY PRN PRN Reason: Constipation Non-Formulary Medication (Levalbuterol) 45 mcg INHALE Q2H PRN PRN Reason: Shortness of Breath Last Admin: 08/31/21 10:41 Dose: 45 mcg Documented by: Nortriptyline HCl (Nortriptyline Hcl 25 Mg Capsule) 50 mg PO BEDTIME [facility] Last Admin: 08/30/21 20:43 Dose: 50 mg Documented by: Pharmacy Consult (Consult Rx Perform Med Rec) 1 each MISCELLANE ONCE PRN PRN Reason: Consult order Polyethylene Glycol (Polyethylene Glycol 3350 17 Gm Powd.Pack) 17 gm PO DAILY [facility] Last Admin: 08/31/21 09:05 Dose: 17 gm Documented by: Quetiapine Fumarate (Quetiapine Fumarate 25 Mg Tablet) 12.5 mg PO BID PRN PRN Reason: agitation Simethicone (Simethicone 80 Mg Tab.Chew) 160 mg PO TIDAC PRN PRN Reason: flatus Trazodone HCl (Trazodone Hcl 50 Mg Tablet) 50 mg PO BEDTIME PRN PRN Reason: Insomnia Vitamin D (Cholecalciferol (Vitamin D3) 25 Mcg Tablet) 50 mcg PO DAILY [facility] Last Admin: 08/31/21 09:06 Dose: 50 mcg Documented by: Allergies Allergies Allergy/AdvReac Type Severity Reaction Status Date / Time lamotrigine [From LAMICTAL] Allergy Severe agitation Verified 08/11/21 13:14 and anxiety with titration codeine [CODEINE] Allergy Intermediate INSOMNIA Verified 08/11/21 13:14 Penicillins [PENICILLINS] Allergy Intermediate RASH Verified 08/11/21 13:14 epinephrine [EPINEPHRINE] AdvReac Intermediate Hypertensio Verified 08/11/21 13:14 n escitalopram [From LEXAPRO] AdvReac Intermediate NIGHTMARES Verified 08/11/21 13:14 sertraline [From ZOLOFT] AdvReac Intermediate NIGHTMARES Verified 08/11/21 13:14 sulfamethoxazole AdvReac Intermediate STOMACH Verified 08/11/21 13:14 [From BACTRIM] UPSET Assessment & Plan Assessment & Plan (1) Major depressive disorder, recurrent episode, severe with anxious distress: Status: Acute Code(s): F33.2 - Major depressive disorder, recurrent severe without psychotic features Assessment and Plan: started abilify 2 mg daily 08/29, dosing increased to 5 mg daily as of 08/30. pamelor increased from 20 mg QHS to 50 mg QHS as of 08/30. ECT is an option per Casey; pt declining in favor of med trial at the moment. otherwise continued outpt regimen. I spent minutes with the patient and/or on the patient floor today, greater than?50% of which was spent counseling/coordinating care. Reason for contiued inpatient stay Substantial Risk for: harm to self, inability to function and rapid decompensation
[2021-08-31] MEDS: LORazepam 1 MG TABLET PO ×2 (16:11→22:13)
[2021-08-31] MEDS: ARIPiprazole 5 MG TABLET PO (21:02)
[2021-08-31] MEDS: Nortriptyline HCl 25 MG CAPSULE 50 MG PO (21:02)
[2021-08-31 21:06] VITALS: BP 106/68; PULSE 108; TEMP 36.8; O2SAT 96
[2021-09-01] MEDS: Dicyclomine HCl 10 MG CAPSULE 30 MG PO ×3 (09:06→16:50)
[2021-09-01 09:15] VITALS: BP 127/81; PULSE 102; RESP 16
[2021-09-01 09:16] VITALS: BP 127/81; PULSE 102
[2021-09-01] MEDS: amLODIPine Besylate 10 MG TABLET PO (09:16)
[2021-09-01] MEDS: Famotidine 20 MG TABLET 40 MG PO ×2 (09:16→21:01)
[2021-09-01] MEDS: Cholecalciferol (Vitamin D3) 25 MCG TABLET 50 MCG PO (09:16)
[2021-09-01] MEDS: LORazepam 1 MG TABLET PO (12:30)
--- NOTE | 2021-09-01 13:24 | HO.PSYCHPN ---
Subjective Subjective Date of Service: 09/01/21 Reason For Visit: SI Interim History: pt found walking the [place]anna. reports no panic attack today, but experiencing strong anxiety nevertheless. anxious about getting a new prescriber. agreeable to continue current regimen as it appears to be benefitting him. MD spoke with LAURO de la cruz re getting new Rx'er, and she reports that will definitely happen but pt remains perseverative on the topic. per staff, no panic attack yesterday, but felt weak. got ativan 0.5 mg x1 PRN. tearful at times. pleasant. feeling paralyzed but wants to attend groups. no other notable events or behaviors. Mental Status Exam Mental Status Exam Narrative: appropriately dressed and groomed, no PMA/PMR, cooperative with interview. speech somewhat soft, nml amount and rate, flattened prosody. thoughts linear and logical with no delusions or paranoia. affect constricted, normo-intense, non-labile. mood depressed and anxious. no AVH expressed. no SI/HI expressed. Diagnostics Vital Signs (24Hr): Vital Signs - 24 hr 08/31/21 21:06 09/01/21 09:15 09/01/21 09:16 Temperature 98.2 F Pulse Rate 108 H 102 H 102 H Respiratory Rate 16 Blood Pressure 106/68 127/81 127/81 Pulse Oximetry 96 BMI result Body Mass Index 24.7 Labs Results: 08/28/21 12:24 08/28/21 12:24 Labs: Laboratory Results - last 48 hr 08/30/21 08/30/21 08/30/21 14:51 14:51 14:51 Estimat Average Glucose 114 Hemoglobin A1c % 5.6 Triglycerides 289 Cholesterol 213 LDL Cholesterol, Calc 110 HDL Cholesterol 46 D Vitamin B12 541 Folate 5.2 TSH 1.44 Medications Medications Current Medications Acetaminophen (Acetaminophen 325 Mg Tablet) 650 mg PO Q6H PRN PRN Reason: Headache/Pain Mild Scale (1-3) Al Hydroxide/Mg Hydroxide (Magnesium Hydrox/Alum Hydrox 30 Ml Oral.Susp) 30 ml PO Q6H PRN PRN Reason: Heartburn/Nausea Last Admin: 08/30/21 21:51 Dose: 30 ml Documented by: Amlodipine Besylate (Amlodipine Besylate 10 Mg Tablet) 10 mg PO DAILY ÁLVARO; Protocol Last Admin: 09/01/21 09:16 Dose: 10 mg Documented by: Aripiprazole (Aripiprazole 5 Mg Tablet) 5 mg PO BEDTIME [facility] Last Admin: 08/31/21 21:02 Dose: 5 mg Documented by: Dicyclomine HCl (Dicyclomine Hcl 10 Mg Capsule) 30 mg PO TIDAC [facility] Last Admin: 09/01/21 11:33 Dose: 30 mg Documented by: Famotidine (Famotidine 20 Mg Tablet) 40 mg PO BID [facility] Last Admin: 09/01/21 09:16 Dose: 40 mg Documented by: Hydroxyzine HCl (Hydroxyzine Hcl 25 Mg Tablet) 25 mg PO BEDTIME PRN PRN Reason: Anxiety Lorazepam (Lorazepam 0.5 Mg Tablet) 0.5 mg PO TID PRN PRN Reason: Anxiety Magnesium Hydroxide (Milk Of Magnesia 30 Ml Oral.Susp) 30 ml PO DAILY PRN PRN Reason: Constipation Non-Formulary Medication (Levalbuterol) 45 mcg INHALE Q2H PRN PRN Reason: Shortness of Breath Last Admin: 09/01/21 09:07 Dose: 45 mcg Documented by: Patient Own Medication (Trelegy Ellipta) 1 each INHALE DAILY [facility] Last Admin: 09/01/21 09:19 Dose: 1 each Documented by: Nortriptyline HCl (Nortriptyline Hcl 25 Mg Capsule) 50 mg PO BEDTIME [facility] Last Admin: 08/31/21 21:02 Dose: 50 mg Documented by: Pharmacy Consult (Consult Rx Perform Med Rec) 1 each MISCELLANE ONCE PRN PRN Reason: Consult order Polyethylene Glycol (Polyethylene Glycol 3350 17 Gm Powd.Pack) 17 gm PO DAILY [facility] Last Admin: 09/01/21 09:18 Dose: Not Given Documented by: Quetiapine Fumarate (Quetiapine Fumarate 25 Mg Tablet) 12.5 mg PO BID PRN PRN Reason: agitation Simethicone (Simethicone 80 Mg Tab.Chew) 160 mg PO TIDAC PRN PRN Reason: flatus Trazodone HCl (Trazodone Hcl 50 Mg Tablet) 50 mg PO BEDTIME PRN PRN Reason: Insomnia Vitamin D (Cholecalciferol (Vitamin D3) 25 Mcg Tablet) 50 mcg PO DAILY [facility] Last Admin: 09/01/21 09:16 Dose: 50 mcg Documented by: Allergies Allergies Allergy/AdvReac Type Severity Reaction Status Date / Time lamotrigine [From LAMICTAL] Allergy Severe agitation Verified 08/11/21 13:14 and anxiety with titration codeine [CODEINE] Allergy Intermediate INSOMNIA Verified 08/11/21 13:14 Penicillins [PENICILLINS] Allergy Intermediate RASH Verified 08/11/21 13:14 epinephrine [EPINEPHRINE] AdvReac Intermediate Hypertensio Verified 08/11/21 13:14 n escitalopram [From LEXAPRO] AdvReac Intermediate NIGHTMARES Verified 08/11/21 13:14 sertraline [From ZOLOFT] AdvReac Intermediate NIGHTMARES Verified 08/11/21 13:14 sulfamethoxazole AdvReac Intermediate STOMACH Verified 08/11/21 13:14 [From BACTRIM] UPSET Assessment & Plan Assessment & Plan (1) Major depressive disorder, recurrent episode, severe with anxious distress: Status: Acute Code(s): F33.2 - Major depressive disorder, recurrent severe without psychotic features Assessment and Plan: started abilify 2 mg daily 08/29, dosing increased to 5 mg daily as of 08/30. pamelor increased from 20 mg QHS to 50 mg QHS as of 08/30. ECT is an option per Casey; pt declining in favor of med trial at the moment. otherwise continued outpt regimen. I spent minutes with the patient and/or on the patient floor today, greater than?50% of which was spent counseling/coordinating care. Reason for contiued inpatient stay Substantial Risk for: harm to self, inability to function and rapid decompensation
[2021-09-01] MEDS: LORazepam 0.5 MG TABLET PO ×2 (16:33→22:20)
[2021-09-01] MEDS: ARIPiprazole 5 MG TABLET PO (21:01)
[2021-09-01] MEDS: Nortriptyline HCl 25 MG CAPSULE 50 MG PO (21:01)
[2021-09-01 21:03] VITALS: BP 131/78; PULSE 112; TEMP 36.6; O2SAT 97
[2021-09-01] MEDS: Magnesium Hydrox/Alum Hydrox 30 ML ORAL.SUSP PO (22:18)
[2021-09-02] MEDS: Dicyclomine HCl 10 MG CAPSULE 30 MG PO ×3 (08:46→17:02)
[2021-09-02 08:47] VITALS: BP 115/69; PULSE 93; RESP 18; TEMP 36.8; O2SAT 97
[2021-09-02] MEDS: amLODIPine Besylate 10 MG TABLET PO (08:47)
[2021-09-02] MEDS: Cholecalciferol (Vitamin D3) 25 MCG TABLET 50 MCG PO (08:47)
[2021-09-02] MEDS: Famotidine 20 MG TABLET 40 MG PO ×2 (08:47→21:28)
--- NOTE | 2021-09-02 11:31 | P.PNPSI_ITS ---
Subjective Subjective Date of Service: 09/02/21 Reason For Visit: SI Subjective Notes: Conditional Voluntary Interim History: Pt reports anxiety has decreased but continues to feel depressed, hopeless, worried about his disable children and the time when he may not be alive to care for them. He reports some suspiciousness towards providers but grateful for care he has received here. Pt reports passive SI, but denies any plan or intent ot hurt himself. He reports inderal has been helpful in past for anxiety, asks if it can be restarted low dose. Medication Compliance: Yes Side effects from medications: No Review of Systems Review of Systems Yes all other systems are reviewed and are negative Constitutional: Denies chills and Denies fever(s) Cardiovascular: Denies chest pain and Denies rapid heart rate Respiratory: Reports no additional respiratory complaints Mental Status Exam Mental Status Exam Narrative: appropriately dressed and groomed, no PMA/PMR, cooperative with interview. speech somewhat soft, nml amount and rate, flattened prosody. thoughts linear and logical with no delusions or paranoia. affect constricted, normo-intense, non-labile. mood depressed and anxious. no AVH expressed. no SI/HI expressed. Diagnostics Vital Signs (24Hr): Vital Signs - 24 hr 09/03/21 10:45 09/03/21 10:50 09/03/21 21:05 Temperature 97.8 F 97.5 F Pulse Rate 104 H 104 H 105 H Respiratory Rate 18 18 Blood Pressure 113/70 113/70 114/81 Pulse Oximetry 98 96 BMI result Body Mass Index 24.7 Labs Results: 08/28/21 12:24 08/28/21 12:24 Labs: Laboratory Results - last 48 hr 08/30/21 14:51 25-OH Vitamin D Total 39 25-Hydroxy Vitamin D2 <4 25-Hydroxy Vitamin D3 39 Medications Medications Current Medications Acetaminophen (Acetaminophen 325 Mg Tablet) 650 mg PO Q6H PRN PRN Reason: Headache/Pain Mild Scale (1-3) Al Hydroxide/Mg Hydroxide (Magnesium Hydrox/Alum Hydrox 30 Ml Oral.Susp) 30 ml PO Q6H PRN PRN Reason: Heartburn/Nausea Last Admin: 09/02/21 22:24 Dose: 30 ml Documented by: Amlodipine Besylate (Amlodipine Besylate 10 Mg Tablet) 10 mg PO DAILY ÁLVARO; Protocol Last Admin: 09/03/21 10:50 Dose: 10 mg Documented by: Aripiprazole (Aripiprazole 5 Mg Tablet) 5 mg PO DAILY@1700 [facility] Last Admin: 09/03/21 17:15 Dose: 5 mg Documented by: Dicyclomine HCl (Dicyclomine Hcl 10 Mg Capsule) 30 mg PO TIDAC [facility] Last Admin: 09/03/21 17:14 Dose: 30 mg Documented by: Famotidine (Famotidine 20 Mg Tablet) 40 mg PO BID [facility] Last Admin: 09/03/21 21:30 Dose: 40 mg Documented by: Hydroxyzine HCl (Hydroxyzine Hcl 25 Mg Tablet) 25 mg PO BEDTIME PRN PRN Reason: Anxiety Lorazepam (Lorazepam 0.5 Mg Tablet) 0.5 mg PO TID PRN PRN Reason: Anxiety Last Admin: 09/03/21 21:36 Dose: 0.5 mg Documented by: Magnesium Hydroxide (Milk Of Magnesia 30 Ml Oral.Susp) 30 ml PO DAILY PRN PRN Reason: Constipation Non-Formulary Medication (Levalbuterol) 45 mcg INHALE Q2H PRN PRN Reason: Shortness of Breath Last Admin: 09/03/21 16:55 Dose: 45 mcg Documented by: Patient Own Medication (Trelegy Ellipta) 1 each INHALE DAILY [facility] Last Admin: 09/03/21 08:48 Dose: 1 each Documented by: Nortriptyline HCl (Nortriptyline Hcl 25 Mg Capsule) 50 mg PO BEDTIME [facility] Last Admin: 09/03/21 21:30 Dose: 50 mg Documented by: Pharmacy Consult (Consult Rx Perform Med Rec) 1 each MISCELLANE ONCE PRN PRN Reason: Consult order Polyethylene Glycol (Polyethylene Glycol 3350 17 Gm Powd.Pack) 17 gm PO DAILY [facility] Last Admin: 09/03/21 10:36 Dose: Not Given Documented by: Quetiapine Fumarate (Quetiapine Fumarate 25 Mg Tablet) 12.5 mg PO BID PRN PRN Reason: agitation Simethicone (Simethicone 80 Mg Tab.Chew) 160 mg PO TIDAC PRN PRN Reason: flatus Trazodone HCl (Trazodone Hcl 50 Mg Tablet) 50 mg PO BEDTIME PRN PRN Reason: Insomnia Vitamin D (Cholecalciferol (Vitamin D3) 25 Mcg Tablet) 50 mcg PO DAILY [facility] Last Admin: 09/03/21 08:47 Dose: 50 mcg Documented by: Allergies Allergies Allergy/AdvReac Type Severity Reaction Status Date / Time lamotrigine [From LAMICTAL] Allergy Severe agitation Verified 08/11/21 13:14 and anxiety with titration codeine [CODEINE] Allergy Intermediate INSOMNIA Verified 08/11/21 13:14 Penicillins [PENICILLINS] Allergy Intermediate RASH Verified 08/11/21 13:14 epinephrine [EPINEPHRINE] AdvReac Intermediate Hypertensio Verified 08/11/21 13:14 n escitalopram [From LEXAPRO] AdvReac Intermediate NIGHTMARES Verified 08/11/21 13:14 sertraline [From ZOLOFT] AdvReac Intermediate NIGHTMARES Verified 08/11/21 13:14 sulfamethoxazole AdvReac Intermediate STOMACH Verified 08/11/21 13:14 [From BACTRIM] UPSET Assessment & Plan Assessment & Plan (1) Major depressive disorder, recurrent episode, severe with anxious distress: Status: Acute Code(s): F33.2 - Major depressive disorder, recurrent severe without psychotic features Assessment and Plan: started abilify 2 mg daily 08/29, dosing increased to 5 mg daily as of 08/30. pamelor increased from 20 mg QHS to 50 mg QHS as of 08/30. ECT is an option per Casey; pt declining in favor of med trial at the moment. otherwise continued outpt regimen. 09/02- pt reports decrease anxiety, depressed mood, hopeless tearful passive SI but no plan or intent. Propanolol 10mg po BID started per pt request for anxiety. I spent minutes with the patient and/or on the patient floor today, greater than?50% of which was spent counseling/coordinating care. Reason for contiued inpatient stay Substantial Risk for: inability to function
[2021-09-02] MEDS: LORazepam 0.5 MG TABLET PO ×2 (14:02→22:24)
[2021-09-02 21:23] VITALS: BP 138/74; PULSE 95; RESP 20; TEMP 36.6; O2SAT 94
[2021-09-02 21:27] VITALS: PULSE 95
[2021-09-02] MEDS: Nortriptyline HCl 25 MG CAPSULE 50 MG PO (21:27)
[2021-09-02] MEDS: ARIPiprazole 5 MG TABLET PO (21:27)
[2021-09-02] MEDS: Propranolol HCL 10 MG TABLET PO (21:27)
[2021-09-02] MEDS: Magnesium Hydrox/Alum Hydrox 30 ML ORAL.SUSP PO (22:24)
[2021-09-03] MEDS: LORazepam 0.5 MG TABLET PO ×3 (01:23→21:36)
[2021-09-03] MEDS: Cholecalciferol (Vitamin D3) 25 MCG TABLET 50 MCG PO (08:47)
[2021-09-03] MEDS: Dicyclomine HCl 10 MG CAPSULE 30 MG PO ×3 (08:47→17:14)
[2021-09-03] MEDS: Famotidine 20 MG TABLET 40 MG PO ×2 (08:48→21:30)
[2021-09-03 10:45] VITALS: BP 113/70; PULSE 104; RESP 18; TEMP 36.6; O2SAT 98
[2021-09-03 10:50] VITALS: BP 113/70; PULSE 104
[2021-09-03] MEDS: amLODIPine Besylate 10 MG TABLET PO (10:50)
--- NOTE | 2021-09-03 12:02 | P.PNPSI_ITS ---
Subjective Subjective Date of Service: 09/03/21 Reason For Visit: SI Subjective Notes: Conditional Voluntary Interim History: Pt reports feeling dizzy this morning thinks related to propanolol. He reports some improvement in mood in that he is less tearful, less rumunation related to caring for children when he is not alive. He reports some suspiciousness towards providers but grateful for care he has received here. Pt reports passive SI, but denies any plan or intent ot hurt himself. He reports nausea with abilify- will try taking it with dinner. otherwise may consider adding PPI. Medication Compliance: Yes Side effects from medications: No Review of Systems Review of Systems Yes all other systems are reviewed and are negative Constitutional: Denies chills and Denies fever(s) Cardiovascular: Denies chest pain and Denies rapid heart rate Respiratory: Reports no additional respiratory complaints Mental Status Exam Mental Status Exam Narrative: appropriately dressed and groomed, no PMA/PMR, cooperative with interview. speech somewhat soft, nml amount and rate, flattened prosody. thoughts linear and logical with no delusions or paranoia. affect constricted, normo-intense, non-labile. mood depressed and anxious. no AVH expressed. no SI/HI expressed. Diagnostics Vital Signs (24Hr): Vital Signs - 24 hr 09/03/21 10:45 09/03/21 10:50 09/03/21 21:05 Temperature 97.8 F 97.5 F Pulse Rate 104 H 104 H 105 H Respiratory Rate 18 18 Blood Pressure 113/70 113/70 114/81 Pulse Oximetry 98 96 BMI result Body Mass Index 24.7 Labs Results: 08/28/21 12:24 08/28/21 12:24 Labs: Laboratory Results - last 48 hr 08/30/21 14:51 25-OH Vitamin D Total 39 25-Hydroxy Vitamin D2 <4 25-Hydroxy Vitamin D3 39 Medications Medications Current Medications Acetaminophen (Acetaminophen 325 Mg Tablet) 650 mg PO Q6H PRN PRN Reason: Headache/Pain Mild Scale (1-3) Al Hydroxide/Mg Hydroxide (Magnesium Hydrox/Alum Hydrox 30 Ml Oral.Susp) 30 ml PO Q6H PRN PRN Reason: Heartburn/Nausea Last Admin: 09/02/21 22:24 Dose: 30 ml Documented by: Amlodipine Besylate (Amlodipine Besylate 10 Mg Tablet) 10 mg PO DAILY ÁLVARO; Protocol Last Admin: 09/03/21 10:50 Dose: 10 mg Documented by: Aripiprazole (Aripiprazole 5 Mg Tablet) 5 mg PO DAILY@1700 [facility] Last Admin: 09/03/21 17:15 Dose: 5 mg Documented by: Dicyclomine HCl (Dicyclomine Hcl 10 Mg Capsule) 30 mg PO TIDAC [facility] Last Admin: 09/03/21 17:14 Dose: 30 mg Documented by: Famotidine (Famotidine 20 Mg Tablet) 40 mg PO BID [facility] Last Admin: 09/03/21 21:30 Dose: 40 mg Documented by: Hydroxyzine HCl (Hydroxyzine Hcl 25 Mg Tablet) 25 mg PO BEDTIME PRN PRN Reason: Anxiety Lorazepam (Lorazepam 0.5 Mg Tablet) 0.5 mg PO TID PRN PRN Reason: Anxiety Last Admin: 09/03/21 21:36 Dose: 0.5 mg Documented by: Magnesium Hydroxide (Milk Of Magnesia 30 Ml Oral.Susp) 30 ml PO DAILY PRN PRN Reason: Constipation Non-Formulary Medication (Levalbuterol) 45 mcg INHALE Q2H PRN PRN Reason: Shortness of Breath Last Admin: 09/03/21 16:55 Dose: 45 mcg Documented by: Patient Own Medication (Trelegy Ellipta) 1 each INHALE DAILY [facility] Last Admin: 09/03/21 08:48 Dose: 1 each Documented by: Nortriptyline HCl (Nortriptyline Hcl 25 Mg Capsule) 50 mg PO BEDTIME [facility] Last Admin: 09/03/21 21:30 Dose: 50 mg Documented by: Pharmacy Consult (Consult Rx Perform Med Rec) 1 each MISCELLANE ONCE PRN PRN Reason: Consult order Polyethylene Glycol (Polyethylene Glycol 3350 17 Gm Powd.Pack) 17 gm PO DAILY [facility] Last Admin: 09/03/21 10:36 Dose: Not Given Documented by: Quetiapine Fumarate (Quetiapine Fumarate 25 Mg Tablet) 12.5 mg PO BID PRN PRN Reason: agitation Simethicone (Simethicone 80 Mg Tab.Chew) 160 mg PO TIDAC PRN PRN Reason: flatus Trazodone HCl (Trazodone Hcl 50 Mg Tablet) 50 mg PO BEDTIME PRN PRN Reason: Insomnia Vitamin D (Cholecalciferol (Vitamin D3) 25 Mcg Tablet) 50 mcg PO DAILY ÁLVARO Last Admin: 09/03/21 08:47 Dose: 50 mcg Documented by: Allergies Allergies Allergy/AdvReac Type Severity Reaction Status Date / Time lamotrigine [From LAMICTAL] Allergy Severe agitation Verified 08/11/21 13:14 and anxiety with titration codeine [CODEINE] Allergy Intermediate INSOMNIA Verified 08/11/21 13:14 Penicillins [PENICILLINS] Allergy Intermediate RASH Verified 08/11/21 13:14 epinephrine [EPINEPHRINE] AdvReac Intermediate Hypertensio Verified 08/11/21 13:14 n escitalopram [From LEXAPRO] AdvReac Intermediate NIGHTMARES Verified 08/11/21 13:14 sertraline [From ZOLOFT] AdvReac Intermediate NIGHTMARES Verified 08/11/21 13:14 sulfamethoxazole AdvReac Intermediate STOMACH Verified 08/11/21 13:14 [From BACTRIM] UPSET Assessment & Plan Assessment & Plan (1) Major depressive disorder, recurrent episode, severe with anxious distress: Status: Acute Code(s): F33.2 - Major depressive disorder, recurrent severe without psychotic features Assessment and Plan: started abilify 2 mg daily 08/29, dosing increased to 5 mg daily as of 08/30. pamelor increased from 20 mg QHS to 50 mg QHS as of 08/30. ECT is an option per Casey; pt declining in favor of med trial at the moment. otherwise continued outpt regimen. 09/02- pt reports decrease anxiety, depressed mood, hopeless tearful passive SI but no plan or intent. Propanolol 10mg po BID started per pt request for anxie ty. 09/03- d/c propanolol due to dizziness. change abilify to dinner time, pt reports increase heartburn since abilify started at bedtime. some improvement in mood. less passive SI. no plan. I spent minutes with the patient and/or on the patient floor today, greater than?50% of which was spent counseling/coordinating care. Reason for contiued inpatient stay Substantial Risk for: inability to function
[2021-09-03 15:01] LABS: Vitamin D 25-OH, D2 <4 ng/mL; Vitamin D 25-OH, D3 39 ng/mL; Vitamin D 25-OH, Total 39 ng/mL (30-100)
[2021-09-03] MEDS: ARIPiprazole 5 MG TABLET PO (17:15)
[2021-09-03 21:05] VITALS: BP 114/81; PULSE 105; RESP 18; TEMP 36.4; O2SAT 96
[2021-09-03] MEDS: Nortriptyline HCl 25 MG CAPSULE 50 MG PO (21:30)
[2021-09-04 08:27] VITALS: BP 114/69; PULSE 92
[2021-09-04] MEDS: Dicyclomine HCl 10 MG CAPSULE 30 MG PO (08:27)
[2021-09-04] MEDS: Cholecalciferol (Vitamin D3) 25 MCG TABLET 50 MCG PO (08:27)
[2021-09-04] MEDS: Famotidine 20 MG TABLET 40 MG PO (08:27)
[2021-09-04] MEDS: amLODIPine Besylate 10 MG TABLET PO (08:27)
[2021-09-04 09:39] VITALS: BP 114/69; PULSE 92; RESP 16; TEMP 36.8
--- NOTE | 2021-09-04 10:20 | PC.NURSE ---
Addendum entered by Maria Isabel Alicea RN 09/04/21 18:37: POC Blood glucose was assessed at 10:48am due to pt's described symptoms, POC was 99. Original Note: Pt took his AM medications and ate breakfast. Shortly after, pt stated I feel really strange. I feel shaky and sort of dizzy, I don't know how to describe it. This RN assessed pt's vitals at 09:50, HR 111 and O2 97%, respirations were 20 and unlabored. BP cuff had a tear in it and it didn't provide a reading. Cuff was replaced with a new one, vitals were reassessed at 10:00. BP 130/85, HR 107, respirations 20 and unlabored. Pt stated he had shortness of breath, administered 2 puffs of Levalbuterol as prescribed. Provided patient with 3 bottles of water and encouraged him to increase his fluid intake throughout the day. Pt is currently sitting down and is engaging in conversation with staff, does not appear to be in respiratory distress. Pt also stated his ears feel somewhat blocked. RN assessed his ears using an Otoscope, moderate cerumen present. Will notify provider about possibly administering Debrox drops to soften ear wax build up.
[2021-09-04] MEDS: LORazepam 0.5 MG TABLET PO ×3 (10:37→19:33)
[2021-09-04 10:52] LABS: Glucose, Whole Blood 99 mg/dL (60-115)
[2021-09-04] MEDS: Dicyclomine HCl 10 MG CAPSULE PO ×2 (11:36→17:14)
--- NOTE | 2021-09-04 14:50 | HO.PSYCHPN ---
Subjective Subjective Date of Service: 09/04/21 Reason For Visit: SI Interim History: pt found in the milieu, social. agreeable to come to interview room for discussion. states he had a great day on saturday but then yesterday felt off again. c/o feeling very physically heavy with dry mouth and having word-finding difficulties. his med regimen is reviewed and both bentyl and famotidine are identified as medications associated with anti-cholinergic side effects. pt states they are vestigial scripts at this point and were only started when he began to have symptoms of the small bowel obstruction and it was misdiagnosed as IBS. he is amenable to taper and DC of these medications. we start with decreasing bentyl from 20 TID to 10 TID and famotidine from 40 BID to 20 BID. pt is appreciative of these changes and eager for improvement. per staff, med-compliant. no SI/HI. 04/01 anx, 03/02 dep. attending groups. propranolol started over w/e but then DCed at pt request due to hypotension. Mental Status Exam Mental Status Exam Narrative: appropriately dressed and groomed, no PMA/PMR, cooperative with interview. speech somewhat soft, nml amount and rate, flattened prosody. thoughts linear and logical with no delusions or paranoia. affect constricted, normo-intense, non-labile. mood depressed and anxious. no AVH expressed. no SI/HI expressed. Diagnostics Vital Signs (24Hr): Vital Signs - 24 hr 09/03/21 21:05 09/04/21 08:27 09/04/21 09:39 Temperature 97.5 F 98.2 F Pulse Rate 105 H 92 92 Respiratory Rate 18 16 Blood Pressure 114/81 114/69 114/69 Pulse Oximetry 96 BMI result Body Mass Index 24.7 Labs Results: 08/28/21 12:24 08/28/21 12:24 Labs: Laboratory Results - last 48 hr 08/30/21 09/04/21 14:51 10:48 POC Glucose 99 25-OH Vitamin D Total 39 25-Hydroxy Vitamin D2 <4 25-Hydroxy Vitamin D3 39 Medications Medications Current Medications Acetaminophen (Acetaminophen 325 Mg Tablet) 650 mg PO Q6H PRN PRN Reason: Headache/Pain Mild Scale (1-3) Al Hydroxide/Mg Hydroxide (Magnesium Hydrox/Alum Hydrox 30 Ml Oral.Susp) 30 ml PO Q6H PRN PRN Reason: Heartburn/Nausea Last Admin: 09/02/21 22:24 Dose: 30 ml Documented by: Amlodipine Besylate (Amlodipine Besylate 10 Mg Tablet) 10 mg PO DAILY [facility]; Protocol Last Admin: 09/04/21 08:27 Dose: 10 mg Documented by: Aripiprazole (Aripiprazole 5 Mg Tablet) 5 mg PO DAILY@1700 ÁLVARO Last Admin: 09/03/21 17:15 Dose: 5 mg Documented by: Dicyclomine HCl (Dicyclomine Hcl 10 Mg Capsule) 10 mg PO TIDAC [facility] Last Admin: 09/04/21 11:36 Dose: 10 mg Documented by: Famotidine (Famotidine 20 Mg Tablet) 20 mg PO BID [facility] Hydroxyzine HCl (Hydroxyzine Hcl 25 Mg Tablet) 25 mg PO BEDTIME PRN PRN Reason: Anxiety Lorazepam (Lorazepam 0.5 Mg Tablet) 0.5 mg PO TID PRN PRN Reason: Anxiety Last Admin: 09/04/21 14:15 Dose: 0.5 mg Documented by: Magnesium Hydroxide (Milk Of Magnesia 30 Ml Oral.Susp) 30 ml PO DAILY PRN PRN Reason: Constipation Non-Formulary Medication (Levalbuterol) 45 mcg INHALE Q2H PRN PRN Reason: Shortness of Breath Last Admin: 09/04/21 10:16 Dose: 45 mcg Documented by: Patient Own Medication (Trelegy Ellipta) 1 each INHALE DAILY [facility] Last Admin: 09/04/21 09:34 Dose: 1 each Documented by: Nortriptyline HCl (Nortriptyline Hcl 25 Mg Capsule) 50 mg PO BEDTIME [facility] Last Admin: 09/03/21 21:30 Dose: 50 mg Documented by: Pharmacy Consult (Consult Rx Perform Med Rec) 1 each MISCELLANE ONCE PRN PRN Reason: Consult order Polyethylene Glycol (Polyethylene Glycol 3350 17 Gm Powd.Pack) 17 gm PO DAILY [facility] Last Admin: 09/04/21 08:33 Dose: Not Given Documented by: Quetiapine Fumarate (Quetiapine Fumarate 25 Mg Tablet) 12.5 mg PO BID PRN PRN Reason: agitation Simethicone (Simethicone 80 Mg Tab.Chew) 160 mg PO TIDAC PRN PRN Reason: flatus Trazodone HCl (Trazodone Hcl 50 Mg Tablet) 50 mg PO BEDTIME PRN PRN Reason: Insomnia Vitamin D (Cholecalciferol (Vitamin D3) 25 Mcg Tablet) 50 mcg PO DAILY ÁLVARO Last Admin: 09/04/21 08:27 Dose: 50 mcg Documented by: Allergies Allergies Allergy/AdvReac Type Severity Reaction Status Date / Time lamotrigine [From LAMICTAL] Allergy Severe agitation Verified 08/11/21 13:14 and anxiety with titration codeine [CODEINE] Allergy Intermediate INSOMNIA Verified 08/11/21 13:14 Penicillins [PENICILLINS] Allergy Intermediate RASH Verified 08/11/21 13:14 epinephrine [EPINEPHRINE] AdvReac Intermediate Hypertensio Verified 08/11/21 13:14 n escitalopram [From LEXAPRO] AdvReac Intermediate NIGHTMARES Verified 08/11/21 13:14 sertraline [From ZOLOFT] AdvReac Intermediate NIGHTMARES Verified 08/11/21 13:14 sulfamethoxazole AdvReac Intermediate STOMACH Verified 08/11/21 13:14 [From BACTRIM] UPSET Assessment & Plan Assessment & Plan (1) Major depressive disorder, recurrent episode, severe with anxious distress: Status: Acute Code(s): F33.2 - Major depressive disorder, recurrent severe without psychotic features Assessment and Plan: started abilify 2 mg daily 08/29, dosing increased to 5 mg daily as of 08/30. pamelor increased from 20 mg QHS to 50 mg QHS as of 08/30. ECT is an option per Casey; pt declining in favor of med trial at the moment. otherwise continued outpt regimen. 09/02- pt reports decrease anxiety, depressed mood, hopeless tearful passive SI but no plan or intent. Propanolol 10mg po BID started per pt request for anxiety. 09/03- d/c propanolol due to dizziness. change abilify to dinner time, pt reports increase heartburn since abilify started at bedtime. some improvement in mood. less passive SI. no plan. 09/04: feeling heavy and off cognitively. began taper of bentyl and famotidine, two medications which may no longer be necessary and which may have strong anticholinergic side effects. I spent minutes with the patient and/or on the patient floor today, greater than?50% of which was spent counseling/coordinating care. Reason for contiued inpatient stay Substantial Risk for: inability to function and rapid decompensation
[2021-09-04] MEDS: ARIPiprazole 5 MG TABLET PO (17:14)
[2021-09-04 18:00] VITALS: BP 133/70; PULSE 107; RESP 15; TEMP 36.6; O2SAT 94
[2021-09-04] MEDS: Famotidine 20 MG TABLET PO (21:04)
[2021-09-04] MEDS: Nortriptyline HCl 25 MG CAPSULE 50 MG PO (21:04)
[2021-09-05 08:30] VITALS: BP 124/83; PULSE 104; RESP 18; TEMP 36.4; O2SAT 95
[2021-09-05] MEDS: Dicyclomine HCl 10 MG CAPSULE PO ×3 (08:33→17:08)
[2021-09-05 08:34] VITALS: BP 124/83; PULSE 104
[2021-09-05] MEDS: Cholecalciferol (Vitamin D3) 25 MCG TABLET 50 MCG PO (08:34)
[2021-09-05] MEDS: Famotidine 20 MG TABLET PO ×2 (08:34→21:11)
[2021-09-05] MEDS: amLODIPine Besylate 10 MG TABLET PO (08:34)
[2021-09-05] MEDS: LORazepam 0.5 MG TABLET PO ×2 (13:08→14:16)
[2021-09-05] MEDS: ARIPiprazole 5 MG TABLET PO (17:07)
--- NOTE | 2021-09-05 20:50 | P.PNPSI_ITS ---
Subjective Subjective Date of Service: 09/05/21 Reason For Visit: SI Interim History: pt reports his mental acuity has improved since yesterday, but his mouth continues quite dry. he still does not feel himself cognitively, however. he is agreeable to give the current regimen another day before continuing to taper the likely offending and unnecessary medications. concerned as he experiences the panic returning now. MD prescribes ativan 1 mg PRNs for PANIC, while pt also has 0.5 mg PRNs for ANXIETY. per staff, feeling anxious a bit. using ativan PRNs. denies SI/AVH. slept 1030 pm on. Mental Status Exam Mental Status Exam Narrative: appropriately dressed and groomed, no PMA/PMR, cooperative with interview. speech somewhat soft, nml amount and rate, flattened prosody. tho ughts linear and logical with no delusions or paranoia. affect constricted, normo-intense, non-labile. mood depressed and anxious. no AVH expressed. no SI/HI expressed. Diagnostics Vital Signs (24Hr): Vital Signs - 24 hr 09/05/21 08:30 09/05/21 08:34 Temperature 97.5 F Pulse Rate 104 H 104 H Respiratory Rate 18 Blood Pressure 124/83 124/83 Pulse Oximetry 95 BMI result Body Mass Index 24.7 Labs Results: 08/28/21 12:24 08/28/21 12:24 Labs: Laboratory Results - last 48 hr 09/04/21 10:48 POC Glucose 99 Medications Medications Current Medications Acetaminophen (Acetaminophen 325 Mg Tablet) 650 mg PO Q6H PRN PRN Reason: Headache/Pain Mild Scale (1-3) Al Hydroxide/Mg Hydroxide (Magnesium Hydrox/Alum Hydrox 30 Ml Oral.Susp) 30 ml PO Q6H PRN PRN Reason: Heartburn/Nausea Last Admin: 09/02/21 22:24 Dose: 30 ml Documented by: Amlodipine Besylate (Amlodipine Besylate 10 Mg Tablet) 10 mg PO DAILY [facility]; Protocol Last Admin: 09/05/21 08:34 Dose: 10 mg Documented by: Aripiprazole (Aripiprazole 5 Mg Tablet) 5 mg PO DAILY@1700 ÁLVARO Last Admin: 09/05/21 17:07 Dose: 5 mg Documented by: Dicyclomine HCl (Dicyclomine Hcl 10 Mg Capsule) 10 mg PO TIDAC [facility] Last Admin: 09/05/21 17:08 Dose: 10 mg Documented by: Famotidine (Famotidine 20 Mg Tablet) 20 mg PO BID [facility] Last Admin: 09/05/21 08:34 Dose: 20 mg Documented by: Hydroxyzine HCl (Hydroxyzine Hcl 25 Mg Tablet) 25 mg PO BEDTIME PRN PRN Reason: Anxiety Lorazepam (Lorazepam 0.5 Mg Tablet) 0.5 mg PO TID PRN PRN Reason: Anxiety Last Admin: 09/05/21 14:16 Dose: 0.5 mg Documented by: Lorazepam (Lorazepam 1 Mg Tablet) 1 mg PO Q4H PRN PRN Reason: panic Magnesium Hydroxide (Milk Of Magnesia 30 Ml Oral.Susp) 30 ml PO DAILY PRN PRN Reason: Constipation Non-Formulary Medication (Levalbuterol) 45 mcg INHALE Q2H PRN PRN Reason: Shortness of Breath Last Admin: 09/04/21 10:16 Dose: 45 mcg Documented by: Patient Own Medication (Trelegy Ellipta) 1 each INHALE DAILY [facility] Last Admin: 09/05/21 09:22 Dose: 1 each Documented by: Nortriptyline HCl (Nortriptyline Hcl 25 Mg Capsule) 50 mg PO BEDTIME [facility] Last Admin: 09/04/21 21:04 Dose: 50 mg Documented by: Pharmacy Consult (Consult Rx Perform Med Rec) 1 each MISCELLANE ONCE PRN PRN Reason: Consult order Polyethylene Glycol (Polyethylene Glycol 3350 17 Gm Powd.Pack) 17 gm PO DAILY [facility] Last Admin: 09/05/21 10:37 Dose: Not Given Documented by: Quetiapine Fumarate (Quetiapine Fumarate 25 Mg Tablet) 12.5 mg PO BID PRN PRN Reason: agitation Simethicone (Simethicone 80 Mg Tab.Chew) 160 mg PO TIDAC PRN PRN Reason: flatus Trazodone HCl (Trazodone Hcl 50 Mg Tablet) 50 mg PO BEDTIME PRN PRN Reason: Insomnia Vitamin D (Cholecalciferol (Vitamin D3) 25 Mcg Tablet) 50 mcg PO DAILY [facility] Last Admin: 09/05/21 08:34 Dose: 50 mcg Documented by: Allergies Allergies Allergy/AdvReac Type Severity Reaction Status Date / Time lamotrigine [From LAMICTAL] Allergy Severe agitation Verified 08/11/21 13:14 and anxiety with titration codeine [CODEINE] Allergy Intermediate INSOMNIA Verified 08/11/21 13:14 Penicillins [PENICILLINS] Allergy Intermediate RASH Verified 08/11/21 13:14 epinephrine [EPINEPHRINE] AdvReac Intermediate Hypertensio Verified 08/11/21 13:14 n escitalopram [From LEXAPRO] AdvReac Intermediate NIGHTMARES Verified 08/11/21 13:14 sertraline [From ZOLOFT] AdvReac Intermediate NIGHTMARES Verified 08/11/21 13:14 sulfamethoxazole AdvReac Intermediate STOMACH Verified 08/11/21 13:14 [From BACTRIM] UPSET Assessment & Plan Assessment & Plan (1) Major depressive disorder, recurrent episode, severe with anxious distress: Status: Acute Code(s): F33.2 - Major depressive disorder, recurrent severe without psychotic features Assessment and Plan: started abilify 2 mg daily 08/29, dosing increased to 5 mg daily as of 08/30. pamelor increased from 20 mg QHS to 50 mg QHS as of 08/30. ECT is an option per [facility]; pt declining in favor of med trial at the moment. otherwise continued outpt regimen. 09/02- pt reports decrease anxiety, depressed mood, hopeless tearful passive SI but no plan or intent. Propanolol 10mg po BID started per pt request for anxiety. 09/03- d/c propanolol due to dizziness. change abilify to dinner time, pt reports increase heartburn since abilify started at bedtime. some improvement in mood. less passive SI. no plan. 09/04: feeling heavy and off cognitively. began taper of bentyl and famotidine, two medications which may no longer be necessary and which may have strong anticholinergic side effects. 09/05: continue current regimen with the addition of ativan 1 mg PRNs. plan to further taper suspect medications tomorrow. I spent minutes with the patient and/or on the patient floor today, greater than?50% of which was spent counseling/coordinating care. Reason for contiued inpatient stay Substantial Risk for: harm to self, inability to function and rapid decompensation
[2021-09-05] MEDS: LORazepam 1 MG TABLET PO (21:11)
[2021-09-05] MEDS: Nortriptyline HCl 25 MG CAPSULE 50 MG PO (21:11)
[2021-09-05 21:30] VITALS: BP 131/76; PULSE 114; TEMP 36.3; O2SAT 96
[2021-09-06 09:00] VITALS: BP 132/74; PULSE 108; O2SAT 97
[2021-09-06] MEDS: Dicyclomine HCl 10 MG CAPSULE PO ×2 (09:00→12:42)
[2021-09-06 09:36] VITALS: BP 132/74; PULSE 108
[2021-09-06] MEDS: Famotidine 20 MG TABLET PO (09:36)
[2021-09-06] MEDS: Cholecalciferol (Vitamin D3) 25 MCG TABLET 50 MCG PO (09:36)
[2021-09-06] MEDS: amLODIPine Besylate 10 MG TABLET PO (09:36)
[2021-09-06] MEDS: polyethylene glycoL 3350 17 GM POWD.PACK PO (09:38)
--- NOTE | 2021-09-06 16:44 | HO.PSYCHPN ---
Subjective Subjective Date of Service: 09/06/21 Reason For Visit: SI Interim History: pt reports he feels less foggy mentally and his speech is improved. agreeable to DC bentyl and famotidine (will leave PRN of famotidine). feeling trembly and depressed today. per staff, shaky yesterday, asked for assistance to walk to bathroom. attending groups, social. Mental Status Exam Mental Status Exam Narrative: appropriately dressed and groomed, no PMA/PMR, cooperative with interview. speech somewhat soft, nml amount and rate, flattened prosody. thoughts linear and logical with no delusions or paranoia. affect constricted, normo-intense, non-labile. mood depressed and anxious. no AVH expressed. no SI/HI expressed. Diagnostics Vital Signs (24Hr): Vital Signs - 24 hr 09/05/21 21:30 09/06/21 09:00 09/06/21 09:36 Temperature 97.4 F Pulse Rate 114 H 108 H 108 H Blood Pressure 131/76 132/74 132/74 Pulse Oximetry 96 97 BMI result Body Mass Index 24.7 Labs Results: 08/28/21 12:24 08/28/21 12:24 Medications Medications Current Medications Acetaminophen (Acetaminophen 325 Mg Tablet) 650 mg PO Q6H PRN PRN Reason: Headache/Pain Mild Scale (1-3) Al Hydroxide/Mg Hydroxide (Magnesium Hydrox/Alum Hydrox 30 Ml Oral.Susp) 30 ml PO Q6H PRN PRN Reason: Heartburn/Nausea Last Admin: 09/02/21 22:24 Dose: 30 ml Documented by: Amlodipine Besylate (Amlodipine Besylate 10 Mg Tablet) 10 mg PO DAILY [facility]; Protocol Last Admin: 09/06/21 09:36 Dose: 10 mg Documented by: Aripiprazole (Aripiprazole 5 Mg Tablet) 5 mg PO DAILY@1700 ÁLVARO Last Admin: 09/05/21 17:07 Dose: 5 mg Documented by: Famotidine (Famotidine 20 Mg Tablet) 20 mg PO BID PRN PRN Reason: GI upset Lorazepam (Lorazepam 1 Mg Tablet) 1 mg PO Q4H PRN PRN Reason: panic Last Admin: 09/05/21 21:11 Dose: 1 mg Documented by: Magnesium Hydroxide (Milk Of Magnesia 30 Ml Oral.Susp) 30 ml PO DAILY PRN PRN Reason: Constipation Non-Formulary Medication (Levalbuterol) 45 mcg INHALE Q2H PRN PRN Reason: Shortness of Breath Last Admin: 09/06/21 08:50 Dose: 45 mcg Documented by: Patient Own Medication (Trelegy Ellipta) 1 each INHALE DAILY [facility] Last Admin: 09/06/21 08:50 Dose: 1 each Documented by: Nortriptyline HCl (Nortriptyline Hcl 25 Mg Capsule) 50 mg PO BEDTIME [facility] Last Admin: 09/05/21 21:11 Dose: 50 mg Documented by: Pharmacy Consult (Consult Rx Perform Med Rec) 1 each MISCELLANE ONCE PRN PRN Reason: Consult order Polyethylene Glycol (Polyethylene Glycol 3350 17 Gm Powd.Pack) 17 gm PO DAILY [facility] Last Admin: 09/06/21 09:38 Dose: 17 gm Documented by: Simethicone (Simethicone 80 Mg Tab.Chew) 160 mg PO TIDAC PRN PRN Reason: flatus Trazodone HCl (Trazodone Hcl 50 Mg Tablet) 50 mg PO BEDTIME PRN PRN Reason: Insomnia Vitamin D (Cholecalciferol (Vitamin D3) 25 Mcg Tablet) 50 mcg PO DAILY [facility] Last Admin: 09/06/21 09:36 Dose: 50 mcg Documented by: Allergies Allergies Allergy/AdvReac Type Severity Reaction Status Date / Time lamotrigine [From LAMICTAL] Allergy Severe agitation Verified 08/11/21 13:14 and anxiety with titration codeine [CODEINE] Allergy Intermediate INSOMNIA Verified 08/11/21 13:14 Penicillins [PENICILLINS] Allergy Intermediate RASH Verified 08/11/21 13:14 epinephrine [EPINEPHRINE] AdvReac Intermediate Hypertensio Verified 08/11/21 13:14 n escitalopram [From LEXAPRO] AdvReac Intermediate NIGHTMARES Verified 08/11/21 13:14 sertraline [From ZOLOFT] AdvReac Intermediate NIGHTMARES Verified 08/11/21 13:14 sulfamethoxazole AdvReac Intermediate STOMACH Verified 08/11/21 13:14 [From BACTRIM] UPSET Assessment & Plan Assessment & Plan (1) Major depressive disorder, recurrent episode, severe with anxious distress: Status: Acute Code(s): F33.2 - Major depressive disorder, recurrent severe without psychotic features Assessment and Plan: started abilify 2 mg daily 08/29, dosing increased to 5 mg daily as of 08/30. pamelor increased from 20 mg QHS to 50 mg QHS as of 08/30. ECT is an option per [facility]; pt declining in favor of med trial at the moment. otherwise continued outpt regimen. 09/02- pt reports decrease anxiety, depressed mood, hopeless tearful passive SI but no plan or intent. Propanolol 10mg po BID started per pt request for anxiety. 09/03- d/c propanolol due to dizziness. change abilify to dinner time, pt reports increase heartburn since abilify started at bedtime. some improvement in mood. less passive SI. no plan. 09/04: feeling heavy and off cognitively. began taper of bentyl and famotidine, two medications which may no longer be necessary and which may have strong anticholinergic side effects. 09/05: continue current regimen with the addition of ativan 1 mg PRNs. plan to further taper suspect medications tomorrow. 09/06: bentyl and scheduled famotidine DCed. I spent minutes with the patient and/or on the patient floor today, greater than?50% of which was spent counseling/coordinating care. Reason for contiued inpatient stay Substantial Risk for: harm to self, inability to function and rapid decompensation
[2021-09-06] MEDS: ARIPiprazole 5 MG TABLET PO (17:31)
[2021-09-06] MEDS: LORazepam 1 MG TABLET PO (19:42)
[2021-09-06] MEDS: Nortriptyline HCl 25 MG CAPSULE 50 MG PO (21:20)
[2021-09-06 21:24] VITALS: BP 139/81; PULSE 100; TEMP 36.6; O2SAT 96
[2021-09-07 06:00] VITALS: BP 105/72; PULSE 109; RESP 17; TEMP 36.7; O2SAT 97
[2021-09-07 07:00] VITALS: BMI 25.1
[2021-09-07] MEDS: polyethylene glycoL 3350 17 GM POWD.PACK PO (08:50)
[2021-09-07] MEDS: Cholecalciferol (Vitamin D3) 25 MCG TABLET 50 MCG PO (08:51)
[2021-09-07 09:53] VITALS: BP 126/81; PULSE 116
[2021-09-07] MEDS: amLODIPine Besylate 10 MG TABLET PO (09:53)
[2021-09-07] MEDS: LORazepam 1 MG TABLET PO (10:59)
[2021-09-07 14:17] VITALS: BP 154/81; PULSE 112
[2021-09-07] MEDS: Propranolol HCL 10 MG TABLET PO ×2 (14:17→20:31)
--- NOTE | 2021-09-07 16:47 | P.PNPSI_ITS ---
Subjective Subjective Date of Service: 09/07/21 Reason For Visit: SI Interim History: pt reports feeling shaky and spacey today. feels weak every morning. discuss this may be related to pamelor. agrees to give it a few more days. pt requests to restart propranolol for tachycardia. MD restarted med at 10 BID. per staff, feeling better yesterday physically. anx/dep but better. attending groups. very anxious on sole, got ativan 1 mg. Mental Status Exam Mental Status Exam Narrative: appropriately dressed and groomed, no PMA/PMR, cooperative with interview. speech somewhat soft, nml amount and rate, flattened prosody. thoughts linear and logical with no delusions or paranoia. affect constricted, normo-intense, non-labile. mood depressed and anxious. no AVH expressed. no SI/HI expressed. Diagnostics Vital Signs (24Hr): Vital Signs - 24 hr 09/06/21 21:24 09/07/21 06:00 09/07/21 09:53 Temperature 97.8 F 98.0 F Pulse Rate 100 109 H 116 H Respiratory Rate 17 Blood Pressure 139/81 105/72 126/81 Pulse Oximetry 96 97 09/07/21 14:17 Temperature Pulse Rate 112 H Respiratory Rate Blood Pressure 154/81 H Pulse Oximetry BMI result Body Mass Index 25.1 Labs Results: 08/28/21 12:24 08/28/21 12:24 Medications Medications Current Medications Acetaminophen (Acetaminophen 325 Mg Tablet) 650 mg PO Q6H PRN PRN Reason: Headache/Pain Mild Scale (1-3) Al Hydroxide/Mg Hydroxide (Magnesium Hydrox/Alum Hydrox 30 Ml Oral.Susp) 30 ml PO Q6H PRN PRN Reason: Heartburn/Nausea Last Admin: 09/02/21 22:24 Dose: 30 ml Documented by: Amlodipine Besylate (Amlodipine Besylate 10 Mg Tablet) 10 mg PO DAILY [facility]; Protocol Last Admin: 09/07/21 09:53 Dose: 10 mg Documented by: Aripiprazole (Aripiprazole 5 Mg Tablet) 5 mg PO DAILY@1700 ÁLVARO Last Admin: 09/06/21 17:31 Dose: 5 mg Documented by: Famotidine (Famotidine 20 Mg Tablet) 20 mg PO BID PRN PRN Reason: GI upset Lorazepam (Lorazepam 1 Mg Tablet) 1 mg PO Q4H PRN PRN Reason: panic Last Admin: 09/07/21 10:59 Dose: 0.5 mg Documented by: Lorazepam (Lorazepam 0.5 Mg Tablet) 0.5 mg PO Q4H PRN PRN Reason: Anxiety Magnesium Hydroxide (Milk Of Magnesia 30 Ml Oral.Susp) 30 ml PO DAILY PRN PRN Reason: Constipation Non-Formulary Medication (Levalbuterol) 45 mcg INHALE Q2H PRN PRN Reason: Shortness of Breath Last Admin: 09/07/21 08:50 Dose: 45 mcg Documented by: Patient Own Medication (Trelegy Ellipta) 1 each INHALE DAILY [facility] Last Admin: 09/07/21 08:50 Dose: 1 each Documented by: Nortriptyline HCl (Nortriptyline Hcl 25 Mg Capsule) 50 mg PO BEDTIME [facility] Last Admin: 09/06/21 21:20 Dose: 50 mg Documented by: Pharmacy Consult (Consult Rx Perform Med Rec) 1 each MISCELLANE ONCE PRN PRN Reason: Consult order Polyethylene Glycol (Polyethylene Glycol 3350 17 Gm Powd.Pack) 17 gm PO DAILY [facility] Last Admin: 09/07/21 08:50 Dose: 17 gm Documented by: Propranolol HCl (Propranolol Hcl 10 Mg Tablet) 10 mg PO BID [facility]; Protocol Last Admin: 09/07/21 14:17 Dose: 10 mg Documented by: Simethicone (Simethicone 80 Mg Tab.Chew) 160 mg PO TIDAC PRN PRN Reason: flatus Trazodone HCl (Trazodone Hcl 50 Mg Tablet) 50 mg PO BEDTIME PRN PRN Reason: Insomnia Vitamin D (Cholecalciferol (Vitamin D3) 25 Mcg Tablet) 50 mcg PO DAILY [facility] Last Admin: 09/07/21 08:51 Dose: 50 mcg Documented by: Allergies Allergies Allergy/AdvReac Type Severity Reaction Status Date / Time lamotrigine [From LAMICTAL] Allergy Severe agitation Verified 08/11/21 13:14 and anxiety with titration codeine [CODEINE] Allergy Intermediate INSOMNIA Verified 08/11/21 13:14 Penicillins [PENICILLINS] Allergy Intermediate RASH Verified 08/11/21 13:14 epinephrine [EPINEPHRINE] AdvReac Intermediate Hypertensio Verified 08/11/21 13:14 n escitalopram [From LEXAPRO] AdvReac Intermediate NIGHTMARES Verified 08/11/21 13:14 sertraline [From ZOLOFT] AdvReac Intermediate NIGHTMARES Verified 08/11/21 13:14 sulfamethoxazole AdvReac Intermediate STOMACH Verified 08/11/21 13:14 [From BACTRIM] UPSET Assessment & Plan Assessment & Plan (1) Major depressive disorder, recurrent episode, severe with anxious distress: Status: Acute Code(s): F33.2 - Major depressive disorder, recurrent severe without psychotic features Assessment and Plan: started abilify 2 mg daily 08/29, dosing increased to 5 mg daily as of 08/30. pamelor increased from 20 mg QHS to 50 mg QHS as of 08/30. ECT is an option per [facility]; pt declining in favor of med trial at the moment. otherwise continued outpt regimen. 09/02- pt reports decrease anxiety, depressed mood, hopeless tearful passive SI but no plan or intent. Propanolol 10mg po BID started per pt request for anxiety. 09/03- d/c propanolol due to dizziness. change abilify to dinner time, pt reports increase heartburn since abilify started at bedtime. some improvement in mood. less passive SI. no plan. 09/04: feeling heavy and off cognitively. began taper of bentyl and famotidine, two medications which may no longer be necessary and which may have strong anticholinergic side effects. 09/05: continue current regimen with the addition of ativan 1 mg PRNs. plan to further taper suspect medications tomorrow. 09/06: bentyl and scheduled famotidine DCed. 09/07: propranolol 10 BID started for tachycardia, anxiety I spent minutes with the patient and/or on the patient floor today, gre ater than?50% of which was spent counseling/coordinating care. Reason for contiued inpatient stay Substantial Risk for: harm to self, inability to function and rapid decompensation
[2021-09-07] MEDS: ARIPiprazole 5 MG TABLET PO (17:51)
[2021-09-07] MEDS: Acetaminophen 325 MG TABLET 650 MG PO (19:03)
[2021-09-07] MEDS: LORazepam 0.5 MG TABLET PO (19:04)
[2021-09-07 20:31] VITALS: BP 137/74; PULSE 97
[2021-09-07] MEDS: Nortriptyline HCl 25 MG CAPSULE 50 MG PO (20:31)
[2021-09-07 20:33] VITALS: TEMP 36.3; O2SAT 94
[2021-09-07] MEDS: Magnesium Hydrox/Alum Hydrox 30 ML ORAL.SUSP PO (23:11)
[2021-09-08 08:00] VITALS: BP 130/92; PULSE 93; RESP 16; TEMP 36.7; O2SAT 95
[2021-09-08] MEDS: Cholecalciferol (Vitamin D3) 25 MCG TABLET 50 MCG PO (08:00)
[2021-09-08 08:01] VITALS: BP 130/92; PULSE 93
[2021-09-08] MEDS: amLODIPine Besylate 10 MG TABLET PO (08:01)
[2021-09-08] MEDS: Propranolol HCL 10 MG TABLET PO ×2 (08:01→21:07)
[2021-09-08] MEDS: Acetaminophen 325 MG TABLET 650 MG PO ×2 (08:51→16:18)
[2021-09-08] MEDS: Dicyclomine HCl 10 MG CAPSULE 20 MG PO (09:55)
[2021-09-08 10:15] VITALS: BP 119/59; PULSE 84; O2SAT 97
--- NOTE | 2021-09-08 15:15 | HO.PSYCHPN ---
Subjective Subjective Date of Service: 09/08/21 Reason For Visit: SI Interim History: pt appears as per usual, anxious, somatically pre-occupied. states his stomach was in a knot when he got up this morning. feeling very exhausted in general. sleeping well, though. wakes up feeling panicked in the morning. agreeable to continue with current regimen and allow his body time to adjust to the medication changes. per staff, c/o anxiety and depression. hopeless, pacing. attending groups. taking PRN ativan, felt inderal was more helpful for anxiety when that was started last night. SW requesting help for pt with hip-side O2 unit. Mental Status Exam Mental Status Exam Narrative: appropriately dressed and groomed, no PMA/PMR, cooperative with interview. speech somewhat soft, nml amount and rate, flattened prosody. thoughts linear and logical with no delusions or paranoia. affect constricted, normo-intense, non-labile. mood depressed and anxious. no AVH expressed. no SI/HI expressed. Diagnostics Vital Signs (24Hr): Vital Signs - 24 hr 09/07/21 20:31 09/07/21 20:33 09/08/21 08:00 Temperature 97.3 F 98.1 F Pulse Rate 97 93 Respiratory Rate 16 Blood Pressure 137/74 130/92 H Pulse Oximetry 94 95 09/08/21 08:01 09/08/21 10:15 Temperature Pulse Rate 93 84 Respiratory Rate Blood Pressure 130/92 H 119/59 L Pulse Oximetry 97 BMI result Body Mass Index 25.1 Labs Results: 08/28/21 12:24 08/28/21 12:24 Medications Medications Current Medications Acetaminophen (Acetaminophen 325 Mg Tablet) 650 mg PO Q6H PRN PRN Reason: Headache/Pain Mild Scale (1-3) Last Admin: 09/08/21 08:51 Dose: 650 mg Documented by: Al Hydroxide/Mg Hydroxide (Magnesium Hydrox/Alum Hydrox 30 Ml Oral.Susp) 30 ml PO Q6H PRN PRN Reason: Heartburn/Nausea Last Admin: 09/07/21 23:11 Dose: 30 ml Documented by: Amlodipine Besylate (Amlodipine Besylate 10 Mg Tablet) 10 mg PO DAILY [facility]; Protocol Last Admin: 09/08/21 08:01 Dose: 10 mg Documented by: Aripiprazole (Aripiprazole 5 Mg Tablet) 5 mg PO DAILY@1700 [facility] Last Admin: 09/07/21 17:51 Dose: 5 mg Documented by: Famotidine (Famotidine 20 Mg Tablet) 20 mg PO BID PRN PRN Reason: GI upset Lorazepam (Lorazepam 1 Mg Tablet) 1 mg PO Q4H PRN PRN Reason: panic Last Admin: 09/07/21 10:59 Dose: 0.5 mg Documented by: Lorazepam (Lorazepam 0.5 Mg Tablet) 0.5 mg PO Q4H PRN PRN Reason: Anxiety Last Admin: 09/07/21 19:04 Dose: 0.5 mg Documented by: Magnesium Hydroxide (Milk Of Magnesia 30 Ml Oral.Susp) 30 ml PO DAILY PRN PRN Reason: Constipation Non-Formulary Medication (Levalbuterol) 45 mcg INHALE Q2H PRN PRN Reason: Shortness of Breath Last Admin: 09/08/21 08:00 Dose: 45 mcg Documented by: Patient Own Medication (Trelegy Ellipta) 1 each INHALE DAILY [facility] Last Admin: 09/08/21 08:00 Dose: 1 each Documented by: Nortriptyline HCl (Nortriptyline Hcl 25 Mg Capsule) 50 mg PO BEDTIME [facility] Last Admin: 09/07/21 20:31 Dose: 50 mg Documented by: Pharmacy Consult (Consult Rx Perform Med Rec) 1 each MISCELLANE ONCE PRN PRN Reason: Consult order Polyethylene Glycol (Polyethylene Glycol 3350 17 Gm Powd.Pack) 17 gm PO DAILY [facility] Last Admin: 09/08/21 08:02 Dose: Not Given Documented by: Propranolol HCl (Propranolol Hcl 10 Mg Tablet) 10 mg PO BID [facility]; Protocol Last Admin: 09/08/21 08:01 Dose: 10 mg Documented by: Simethicone (Simethicone 80 Mg Tab.Chew) 160 mg PO TIDAC PRN PRN Reason: flatus Trazodone HCl (Trazodone Hcl 50 Mg Tablet) 50 mg PO BEDTIME PRN PRN Reason: Insomnia Vitamin D (Cholecalciferol (Vitamin D3) 25 Mcg Tablet) 50 mcg PO DAILY [facility] Last Admin: 09/08/21 08:00 Dose: 50 mcg Documented by: Allergies Allergies Allergy/AdvReac Type Severity Reaction Status Date / Time lamotrigine [From LAMICTAL] Allergy Severe agitation Verified 08/11/21 13:14 and anxiety with titration codeine [CODEINE] Allergy Intermediate INSOMNIA Verified 08/11/21 13:14 Penicillins [PENICILLINS] Allergy Intermediate RASH Verified 08/11/21 13:14 epinephrine [EPINEPHRINE] AdvReac Intermediate Hypertensio Verified 08/11/21 13:14 n escitalopram [From LEXAPRO] AdvReac Intermediate NIGHTMARES Verified 08/11/21 13:14 sertraline [From ZOLOFT] AdvReac Intermediate NIGHTMARES Verified 08/11/21 13:14 sulfamethoxazole AdvReac Intermediate STOMACH Verified 08/11/21 13:14 [From BACTRIM] UPSET Assessment & Plan Assessment & Plan (1) Major depressive disorder, recurrent episode, severe with anxious distress: Status: Acute Code(s): F33.2 - Major depressive disorder, recurrent severe without psychotic features Assessment and Plan: started abilify 2 mg daily 08/29, dosing increased to 5 mg daily as of 08/30. pamelor increased from 20 mg QHS to 50 mg QHS as of 08/30. ECT is an option per [facility]; pt declining in favor of med trial at the moment. otherwise continued outpt regimen. 09/02- pt reports decrease anxiety, depressed mood, hopeless tearful passive SI but no plan or intent. Propanolol 10mg po BID started per pt request for anxiety. 09/03- d/c propanolol due to dizziness. change abilify to dinner time, pt reports increase heartburn since abilify started at bedtime. some improvement in mood. less passive SI. no plan. 09/04: feeling heavy and off cognitively. began taper of bentyl and famotidine, two medications which may no longer be necessary and which may have strong anticholinergic side effects. 09/05: continue current regimen with the addition of ativan 1 mg PRNs. plan to further taper suspect medications tomorrow. 09/06: bentyl and scheduled famotidine DCed. 09/07: propranolol 10 BID started for tachycardia, anxiety. 09/08: tachycardia improved on inderal, anxiety persists. I spent minutes with the patient and/or on the patient floor today, greater than?50% of which was spent counseling/coordinating care. Reason for contiued inpatient stay Substantial Risk for: harm to self, inability to function and rapid decompensation
[2021-09-08] MEDS: LORazepam 0.5 MG TABLET PO (15:30)
[2021-09-08] MEDS: ARIPiprazole 5 MG TABLET PO (17:56)
[2021-09-08] MEDS: Magnesium Hydrox/Alum Hydrox 30 ML ORAL.SUSP PO (20:19)
[2021-09-08 21:05] VITALS: BP 128/96; PULSE 98; RESP 18; TEMP 36.5; O2SAT 97
[2021-09-08 21:07] VITALS: BP 128/96; PULSE 98
[2021-09-08] MEDS: Nortriptyline HCl 25 MG CAPSULE 50 MG PO (21:07)
[2021-09-08] MEDS: LORazepam 1 MG TABLET PO (22:12)
[2021-09-09] MEDS: LORazepam 1 MG TABLET PO ×2 (07:34→19:56)
[2021-09-09 08:42] VITALS: BP 127/75; PULSE 97
[2021-09-09] MEDS: Propranolol HCL 10 MG TABLET PO ×2 (08:42→21:12)
[2021-09-09] MEDS: polyethylene glycoL 3350 17 GM POWD.PACK PO (08:42)
[2021-09-09] MEDS: Cholecalciferol (Vitamin D3) 25 MCG TABLET 50 MCG PO (08:42)
[2021-09-09] MEDS: amLODIPine Besylate 10 MG TABLET PO (08:43)
[2021-09-09 08:53] VITALS: BP 127/75; PULSE 97; RESP 16; TEMP 36.4; O2SAT 98
[2021-09-09] MEDS: Magnesium Hydrox/Alum Hydrox 30 ML ORAL.SUSP PO ×2 (11:25→21:43)
--- NOTE | 2021-09-09 12:02 | HO.PSYCHPN ---
Subjective Subjective Date of Service: 09/09/21 Reason For Visit: SI Subjective Notes: Conditional Voluntary Interim History: The nursing staff reported that the patient complained of abdominal discomfort and asked early AM for Bentyl but he is fully aware that he needs to stay away from anticholinergics. Today, he reported dysphoria and abdominal symptoms. No new complaints Mental Status Exam Mental Status Exam Patient Appearance: Well Grooomed Patient Orientation: Person Level of Consciousness: Awake Patient Behavior: Passive Mood Description: Depressed Affect Description: Constricted Ability to Follow Directions: Good Speech Pattern: Clear Hallucinations: None Delusions: Not Present Thought Process: Linear Thought Content: positive for Circumstantial Judgement: Fair Diagnostics Vital Signs (24Hr): Vital Signs - 24 hr 09/08/21 21:05 09/08/21 21:07 09/09/21 08:42 Temperature 97.7 F Pulse Rate 98 98 97 Respiratory Rate 18 Blood Pressure 128/96 H 128/96 H 127/75 Pulse Oximetry 97 09/09/21 08:53 Temperature 97.5 F Pulse Rate 97 Respiratory Rate 16 Blood Pressure 127/75 Pulse Oximetry 98 BMI result Body Mass Index 25.1 Labs Results: 08/28/21 12:24 08/28/21 12:24 Medications Medications Current Medications Acetaminophen (Acetaminophen 325 Mg Tablet) 650 mg PO Q6H PRN PRN Reason: Headache/Pain Mild Scale (1-3) Last Admin: 09/08/21 16:18 Dose: 650 mg Documented by: Al Hydroxide/Mg Hydroxide (Magnesium Hydrox/Alum Hydrox 30 Ml Oral.Susp) 30 ml PO Q6H PRN PRN Reason: Heartburn/Nausea Last Admin: 09/09/21 11:25 Dose: 30 ml Documented by: Amlodipine Besylate (Amlodipine Besylate 10 Mg Tablet) 10 mg PO DAILY [facility]; Protocol Last Admin: 09/09/21 08:43 Dose: 10 mg Documented by: Aripiprazole (Aripiprazole 5 Mg Tablet) 5 mg PO DAILY@1700 [facility] Last Admin: 09/08/21 17:56 Dose: 5 mg Documented by: Famotidine (Famotidine 20 Mg Tablet) 20 mg PO BID PRN PRN Reason: GI upset Lorazepam (Lorazepam 1 Mg Tablet) 1 mg PO Q4H PRN PRN Reason: panic Last Admin: 09/09/21 07:34 Dose: 0.5 mg Documented by: Lorazepam (Lorazepam 0.5 Mg Tablet) 0.5 mg PO Q4H PRN PRN Reason: Anxiety Last Admin: 09/08/21 15:30 Dose: 0.5 mg Documented by: Magnesium Hydroxide (Milk Of Magnesia 30 Ml Oral.Susp) 30 ml PO DAILY PRN PRN Reason: Constipation Non-Formulary Medication (Levalbuterol) 45 mcg INHALE Q2H PRN PRN Reason: Shortness of Breath Last Admin: 09/09/21 07:34 Dose: 45 mcg Documented by: Patient Own Medication (Trelegy Ellipta) 1 each INHALE DAILY [facility] Last Admin: 09/09/21 08:41 Dose: 1 each Documented by: Nortriptyline HCl (Nortriptyline Hcl 25 Mg Capsule) 50 mg PO BEDTIME [facility] Last Admin: 09/08/21 21:07 Dose: 50 mg Documented by: Pharmacy Consult (Consult Rx Perform Med Rec) 1 each MISCELLANE ONCE PRN PRN Reason: Consult order Polyethylene Glycol (Polyethylene Glycol 3350 17 Gm Powd.Pack) 17 gm PO DAILY [facility] Last Admin: 09/09/21 08:42 Dose: 17 gm Documented by: Propranolol HCl (Propranolol Hcl 10 Mg Tablet) 10 mg PO BID [facility]; Protocol Last Admin: 09/09/21 08:42 Dose: 10 mg Documented by: Simethicone (Simethicone 80 Mg Tab.Chew) 160 mg PO TIDAC PRN PRN Reason: flatus Trazodone HCl (Trazodone Hcl 50 Mg Tablet) 50 mg PO BEDTIME PRN PRN Reason: Insomnia Vitamin D (Cholecalciferol (Vitamin D3) 25 Mcg Tablet) 50 mcg PO DAILY [facility] Last Admin: 09/09/21 08:42 Dose: 50 mcg Documented by: Allergies Allergies Allergy/AdvReac Type Severity Reaction Status Date / Time lamotrigine [From LAMICTAL] Allergy Severe agitation Verified 08/11/21 13:14 and anxiety with titration codeine [CODEINE] Allergy Intermediate INSOMNIA Verified 08/11/21 13:14 Penicillins [PENICILLINS] Allergy Intermediate RASH Verified 08/11/21 13:14 epinephrine [EPINEPHRINE] AdvReac Intermediate Hypertensio Verified 08/11/21 13:14 n escitalopram [From LEXAPRO] AdvReac Intermediate NIGHTMARES Verified 08/11/21 13:14 sertraline [From ZOLOFT] AdvReac Intermediate NIGHTMARES Verified 08/11/21 13:14 sulfamethoxazole AdvReac Intermediate STOMACH Verified 08/11/21 13:14 [From BACTRIM] UPSET Assessment & Plan Assessment & Plan (1) Major depressive disorder, recurrent episode, severe with anxious distress: Status: Acute Code(s): F33.2 - Major depressive disorder, recurrent severe without psychotic features Assessment and Plan: started abilify 2 mg daily 08/29, dosing increased to 5 mg daily as of 08/30. pamelor increased from 20 mg QHS to 50 mg QHS as of 08/30. ECT is an option per [facility]; pt declining in favor of med trial at the moment. otherwise continued outpt regimen. 09/02- pt reports decrease anxiety, depressed mood, hopeless tearful passive SI but no plan or intent. Propanolol 10mg po BID started per pt request for anxiety. 09/03- d/c propanolol due to dizziness. change abilify to dinner time, pt reports increase heartburn since abilify started at bedtime. some improvement in mood. less passive SI. no plan. 09/04: feeling heavy and off cognitively. began taper of bentyl and famotidine, two medications which may no longer be necessary and which may have strong anticholinergic side effects. 09/05: continue current regimen with the addition of ativan 1 mg PRNs. plan to further taper suspect medications tomorrow. 09/06: bentyl and scheduled famotidine DCed. 09/07: propranolol 10 BID started for tachycardia, anxiety. 09/08: tachycardia improved on inderal, anxiety persists. Today he asked for 1 dose of Bentyl I spent minutes with the patient and/or on the patient floor today, greater than?50% of which was spent counseling/coordinating care. Reason for contiued inpatient stay Substantial Risk for: inability to function, rapid decompensation and med/psych decompensation
[2021-09-09] MEDS: Dicyclomine HCl 10 MG CAPSULE PO ×2 (12:04→16:58)
[2021-09-09] MEDS: Acetaminophen 325 MG TABLET 650 MG PO (16:04)
[2021-09-09] MEDS: Simethicone 80 MG TAB.CHEW 160 MG PO (16:30)
[2021-09-09] MEDS: ARIPiprazole 5 MG TABLET PO (16:58)
[2021-09-09 20:13] VITALS: BP 133/78; PULSE 96; RESP 18; TEMP 36.6; O2SAT 98
[2021-09-09 21:12] VITALS: BP 133/78; PULSE 96
[2021-09-09] MEDS: Nortriptyline HCl 25 MG CAPSULE 50 MG PO (21:12)
[2021-09-10 06:00] VITALS: BP 122/65; PULSE 98; RESP 18; TEMP 36.6; O2SAT 96
[2021-09-10] MEDS: LORazepam 1 MG TABLET PO (08:08)
[2021-09-10] MEDS: Famotidine 20 MG TABLET PO (08:09)
[2021-09-10 09:35] VITALS: BP 122/65; PULSE 92
[2021-09-10] MEDS: Propranolol HCL 10 MG TABLET PO ×2 (09:35→20:54)
[2021-09-10 09:36] VITALS: BP 122/65; PULSE 98
[2021-09-10] MEDS: Cholecalciferol (Vitamin D3) 25 MCG TABLET 50 MCG PO (09:36)
[2021-09-10] MEDS: amLODIPine Besylate 10 MG TABLET PO (09:36)
[2021-09-10] MEDS: polyethylene glycoL 3350 17 GM POWD.PACK PO (09:39)
--- NOTE | 2021-09-10 11:28 | P.PNPSI_ITS ---
Subjective Subjective Date of Service: 09/10/21 Reason For Visit: SI Subjective Notes: Conditional Voluntary Interim History: The nursing staff reported that he has requested Bentyl for gastric discomfort. He denies suicidal or homicidal thoughts. On interview, he reported that Bentyl, at low dosis, helps him Mental Status Exam Mental Status Exam Patient Appearance: Well Grooomed Patient Orientation: Person Level of Consciousness: Awake Patient Behavior: Cooperative Mood Description: Constricted Affect Description: Constricted Patient Cognition Impaired: No Ability to Follow Directions: Good Speech Pattern: Appropriate Hallucinations: None Delusions: Not Present Thought Content: positive for Circumstantial Judgement: Fair Diagnostics Vital Signs (24Hr): Vital Signs - 24 hr 09/09/21 20:13 09/09/21 21:12 09/10/21 06:00 Temperature 97.8 F 97.9 F Pulse Rate 96 96 98 Respiratory Rate 18 18 Blood Pressure 133/78 133/78 122/65 Pulse Oximetry 98 96 09/10/21 09:35 09/10/21 09:36 Temperature Pulse Rate 92 98 Respiratory Rate Blood Pressure 122/65 122/65 Pulse Oximetry BMI result Body Mass Index 25.1 Labs Results: 08/28/21 12:24 08/28/21 12:24 Medications Medications Current Medications Acetaminophen (Acetaminophen 325 Mg Tablet) 650 mg PO Q6H PRN PRN Reason: Headache/Pain Mild Scale (1-3) Last Admin: 09/09/21 16:04 Dose: 650 mg Documented by: Al Hydroxide/Mg Hydroxide (Magnesium Hydrox/Alum Hydrox 30 Ml Oral.Susp) 30 ml PO Q6H PRN PRN Reason: Heartburn/Nausea Last Admin: 09/09/21 21:43 Dose: 30 ml Documented by: Amlodipine Besylate (Amlodipine Besylate 10 Mg Tablet) 10 mg PO DAILY [facility]; Protocol Last Admin: 09/10/21 09:36 Dose: 10 mg Documented by: Aripiprazole (Aripiprazole 5 Mg Tablet) 5 mg PO DAILY@1700 [facility] Last Admin: 09/09/21 16:58 Dose: 5 mg Documented by: Famotidine (Famotidine 20 Mg Tablet) 20 mg PO BID PRN PRN Reason: GI upset Last Admin: 09/10/21 08:09 Dose: 20 mg Documented by: Lorazepam (Lorazepam 0.5 Mg Tablet) 0.5 mg PO Q4H PRN PRN Reason: Anxiety Last Admin: 09/08/21 15:30 Dose: 0.5 mg Documented by: Magnesium Hydroxide (Milk Of Magnesia 30 Ml Oral.Susp) 30 ml PO DAILY PRN PRN Reason: Constipation Non-Formulary Medication (Levalbuterol) 45 mcg INHALE Q2H PRN PRN Reason: Shortness of Breath Last Admin: 09/10/21 08:05 Dose: 45 mcg Documented by: Patient Own Medication (Trelegy Ellipta) 1 each INHALE DAILY [facility] Last Admin: 09/10/21 09:35 Dose: 1 each Documented by: Nortriptyline HCl (Nortriptyline Hcl 25 Mg Capsule) 50 mg PO BEDTIME [facility] Last Admin: 09/09/21 21:12 Dose: 50 mg Documented by: Pharmacy Consult (Consult Rx Perform Med Rec) 1 each MISCELLANE ONCE PRN PRN Reason: Consult order Polyethylene Glycol (Polyethylene Glycol 3350 17 Gm Powd.Pack) 17 gm PO DAILY [facility] Last Admin: 09/10/21 09:39 Dose: 17 gm Documented by: Propranolol HCl (Propranolol Hcl 10 Mg Tablet) 10 mg PO BID [facility]; Protocol Last Admin: 09/10/21 09:35 Dose: 10 mg Documented by: Simethicone (Simethicone 80 Mg Tab.Chew) 160 mg PO TIDAC PRN PRN Reason: flatus Last Admin: 09/09/21 16:30 Dose: 160 mg Documented by: Trazodone HCl (Trazodone Hcl 50 Mg Tablet) 50 mg PO BEDTIME PRN PRN Reason: Insomnia Vitamin D (Cholecalciferol (Vitamin D3) 25 Mcg Tablet) 50 mcg PO DAILY [facility] Last Admin: 09/10/21 09:36 Dose: 50 mcg Documented by: Allergies Allergies Allergy/AdvReac Type Severity Reaction Status Date / Time lamotrigine [From LAMICTAL] Allergy Severe agitation Verified 08/11/21 13:14 and anxiety with titration codeine [CODEINE] Allergy Intermediate INSOMNIA Verified 08/11/21 13:14 Penicillins [PENICILLINS] Allergy Intermediate RASH Verified 08/11/21 13:14 epinephrine [EPINEPHRINE] AdvReac Intermediate Hypertensio Verified 08/11/21 13:14 n escitalopram [From LEXAPRO] AdvReac Intermediate NIGHTMARES Verified 08/11/21 13:14 sertraline [From ZOLOFT] AdvReac Intermediate NIGHTMARES Verified 08/11/21 13:14 sulfamethoxazole AdvReac Intermediate STOMACH Verified 08/11/21 13:14 [From BACTRIM] UPSET Assessment & Plan Assessment & Plan (1) Major depressive disorder, recurrent episode, severe with anxious distress: Status: Acute Code(s): F33.2 - Major depressive disorder, recurrent severe without psychotic features Assessment and Plan: started abilify 2 mg daily 08/29, dosing increased to 5 mg daily as of 08/30. pamelor increased from 20 mg QHS to 50 mg QHS as of 08/30. ECT is an option per [facility]; pt declining in favor of med trial at the moment. otherwise continued outpt regimen. 09/02- pt reports decrease anxiety, depressed mood, hopeless tearful passive SI but no plan or intent. Propanolol 10mg po BID started per pt request for anxiety. 09/03- d/c propanolol due to dizziness. change abilify to dinner time, pt rep orts increase heartburn since abilify started at bedtime. some improvement in mood. less passive SI. no plan. 09/04: feeling heavy and off cognitively. began taper of bentyl and famotidine, two medications which may no longer be necessary and which may have strong anticholinergic side effects. 09/05: continue current regimen with the addition of ativan 1 mg PRNs. plan to further taper suspect medications tomorrow. 09/06: bentyl and scheduled famotidine DCed. 09/07: propranolol 10 BID started for tachycardia, anxiety. 09/08: tachycardia improved on inderal, anxiety persists. Today I started on Bentyl 10 mg po tid I spent minutes with the patient and/or on the patient floor today, greater than?50% of which was spent counseling/coordinating care. Reason for contiued inpatient stay Substantial Risk for: inability to function, rapid decompensation and med/psych decompensation
[2021-09-10] MEDS: Dicyclomine HCl 10 MG CAPSULE PO (14:56)
[2021-09-10] MEDS: ARIPiprazole 5 MG TABLET PO (16:59)
[2021-09-10 18:00] VITALS: BP 121/73; PULSE 92; RESP 18; TEMP 36.6; O2SAT 96
[2021-09-10] MEDS: Magnesium Hydrox/Alum Hydrox 30 ML ORAL.SUSP PO (20:04)
[2021-09-10] MEDS: Nortriptyline HCl 25 MG CAPSULE 50 MG PO (20:54)
[2021-09-10] MEDS: LORazepam 0.5 MG TABLET PO (22:53)
[2021-09-11 08:16] VITALS: BP 134/82; PULSE 98
[2021-09-11] MEDS: amLODIPine Besylate 10 MG TABLET PO (08:16)
[2021-09-11] MEDS: Cholecalciferol (Vitamin D3) 25 MCG TABLET 50 MCG PO (08:16)
[2021-09-11 08:17] VITALS: BP 134/82; PULSE 98
[2021-09-11] MEDS: Propranolol HCL 10 MG TABLET PO ×2 (08:17→20:21)
[2021-09-11 08:18] VITALS: BP 134/82; PULSE 98; RESP 16; TEMP 36.7; O2SAT 94
[2021-09-11] MEDS: Acetaminophen 325 MG TABLET 650 MG PO (09:38)
[2021-09-11] MEDS: Dicyclomine HCl 10 MG CAPSULE PO (10:08)
[2021-09-11] MEDS: ARIPiprazole 2 MG TABLET PO (11:15)
[2021-09-11] MEDS: ARIPiprazole 2 MG TABLET 4 MG PO (18:19)
[2021-09-11] MEDS: LORazepam 0.5 MG TABLET PO (19:36)
[2021-09-11 20:21] VITALS: BP 143/94; PULSE 96; RESP 17; TEMP 36.7; O2SAT 97
[2021-09-11] MEDS: Nortriptyline HCl 25 MG CAPSULE 50 MG PO (20:22)
--- NOTE | 2021-09-11 22:59 | P.PNPSI_ITS ---
Subjective Subjective Date of Service: 09/11/21 Reason For Visit: SI Interim History: pt c/o continued panic in the mornings, states he feels good after taking abilify in the eves. agreeable to add another dose in the morning. will starty with a now dose this morning. would like to discharge home before the end of the week. per staff, c/o stomach pain. insomnia. got some bentyl, which was helpful. Mental Status Exam Mental Status Exam Narrative: appropriately dressed and groomed, no PMA/PMR, cooperative with interview. speech somewhat soft, nml amount and rate, flattened prosody. thoughts linear and logical with no delusions or paranoia. affect constricted, normo-intense, non-labile. mood depressed and anxious. no AVH expressed. no SI/HI expressed. Diagnostics Vital Signs (24Hr): Vital Signs - 24 hr 09/11/21 08:16 09/11/21 08:17 09/11/21 08:18 Temperature 98.1 F Pulse Rate 98 98 98 Respiratory Rate 16 Blood Pressure 134/82 134/82 134/82 Pulse Oximetry 94 09/11/21 20:21 Temperature 98.0 F Pulse Rate 96 Respiratory Rate 17 Blood Pressure 143/94 H Pulse Oximetry 97 BMI result Body Mass Index 25.1 Labs Results: 08/28/21 12:24 08/28/21 12:24 Medications Medications Current Medications Acetaminophen (Acetaminophen 325 Mg Tablet) 650 mg PO Q6H PRN PRN Reason: Headache/Pain Mild Scale (1-3) Last Admin: 09/11/21 09:38 Dose: 650 mg Documented by: Al Hydroxide/Mg Hydroxide (Magnesium Hydrox/Alum Hydrox 30 Ml Oral.Susp) 30 ml PO Q6H PRN PRN Reason: Heartburn/Nausea Last Admin: 09/10/21 20:04 Dose: 30 ml Documented by: Amlodipine Besylate (Amlodipine Besylate 10 Mg Tablet) 10 mg PO DAILY [facility]; Protocol Last Admin: 09/11/21 08:16 Dose: 10 mg Documented by: Aripiprazole (Aripiprazole 2 Mg Tablet) 4 mg PO DAILY@1700,0900 [facility] Last Admin: 09/11/21 18:19 Dose: 4 mg Documented by: Dicyclomine HCl (Dicyclomine Hcl 10 Mg Capsule) 10 mg PO TIDAC PRN PRN Reason: gastric discomfort Last Admin: 09/11/21 10:08 Dose: 10 mg Documented by: Famotidine (Famotidine 20 Mg Tablet) 20 mg PO BID PRN PRN Reason: GI upset Last Admin: 09/10/21 08:09 Dose: 20 mg Documented by: Lorazepam (Lorazepam 0.5 Mg Tablet) 0.5 mg PO Q4H PRN PRN Reason: Anxiety Last Admin: 09/11/21 19:36 Dose: 0.5 mg Documented by: Magnesium Hydroxide (Milk Of Magnesia 30 Ml Oral.Susp) 30 ml PO DAILY PRN PRN Reason: Constipation Non-Formulary Medication (Levalbuterol) 45 mcg INHALE Q2H PRN PRN Reason: Shortness of Breath Last Admin: 09/11/21 15:22 Dose: 45 mcg Documented by: Patient Own Medication (Trelegy Ellipta) 1 each INHALE DAILY [facility] Last Admin: 09/11/21 08:16 Dose: 1 each Documented by: Nortriptyline HCl (Nortriptyline Hcl 25 Mg Capsule) 50 mg PO BEDTIME [facility] Last Admin: 09/11/21 20:22 Dose: 50 mg Documented by: Pharmacy Consult (Consult Rx Perform Med Rec) 1 each MISCELLANE ONCE PRN PRN Reason: Consult order Polyethylene Glycol (Polyethylene Glycol 3350 17 Gm Powd.Pack) 17 gm PO DAILY [facility] Last Admin: 09/11/21 08:17 Dose: Not Given Documented by: Propranolol HCl (Propranolol Hcl 10 Mg Tablet) 10 mg PO BID [facility]; Protocol Last Admin: 09/11/21 20:21 Dose: 10 mg Documented by: Simethicone (Simethicone 80 Mg Tab.Chew) 160 mg PO TIDAC PRN PRN Reason: flatus Last Admin: 09/09/21 16:30 Dose: 160 mg Documented by: Trazodone HCl (Trazodone Hcl 50 Mg Tablet) 50 mg PO BEDTIME PRN PRN Reason: Insomnia Vitamin D (Cholecalciferol (Vitamin D3) 25 Mcg Tablet) 50 mcg PO DAILY [facility] Last Admin: 09/11/21 08:16 Dose: 50 mcg Documented by: Allergies Allergies Allergy/AdvReac Type Severity Reaction Status Date / Time lamotrigine [From LAMICTAL] Allergy Severe agitation Verified 08/11/21 13:14 and anxiety with titration codeine [CODEINE] Allergy Intermediate INSOMNIA Verified 08/11/21 13:14 Penicillins [PENICILLINS] Allergy Intermediate RASH Verified 08/11/21 13:14 epinephrine [EPINEPHRINE] AdvReac Intermediate Hypertensio Verified 08/11/21 13:14 n escitalopram [From LEXAPRO] AdvReac Intermediate NIGHTMARES Verified 08/11/21 13:14 sertraline [From ZOLOFT] AdvReac Intermediate NIGHTMARES Verified 08/11/21 13:14 sulfamethoxazole AdvReac Intermediate STOMACH Verified 08/11/21 13:14 [From BACTRIM] UPSET Assessment & Plan Assessment & Plan (1) Major depressive disorder, recurrent episode, severe with anxious distress: Status: Acute Code(s): F33.2 - Major depressive disorder, recurrent severe without psychotic features Assessment and Plan: started abilify 2 mg daily 08/29, dosing increased to 5 mg daily as of 08/30. pamelor increased from 20 mg QHS to 50 mg QHS as of 08/30. ECT is an option per [facility]; pt declining in favor of med trial at the moment. otherwise continued outpt regimen. 09/02- pt reports decrease anxiety, depressed mood, hopeless tearful passive SI but no plan or intent. Propanolol 10mg po BID started per pt request for anxiety. 09/03- d/c propanolol due to dizziness. change abilify to dinner time, pt r eports increase heartburn since abilify started at bedtime. some improvement in mood. less passive SI. no plan. 09/04: feeling heavy and off cognitively. began taper of bentyl and famotidine, two medications which may no longer be necessary and which may have strong anticholinergic side effects. 09/05: continue current regimen with the addition of ativan 1 mg PRNs. plan to further taper suspect medications tomorrow. 09/06: bentyl and scheduled famotidine DCed. 09/07: propranolol 10 BID started for tachycardia, anxiety. 09/08: tachycardia improved on inderal, anxiety persists. 09/11: abilify 4 mg added in the mornings and 5 pm abilify dose changed to 4 mg as well. I spent minutes with the patient and/or on the patient floor today, greater than?50% of which was spent counseling/coordinating care. Reason for contiued inpatient stay Substantial Risk for: harm to self, inability to function and rapid decompensation
[2021-09-12] MEDS: Famotidine 20 MG TABLET PO (01:22)
[2021-09-12 08:22] VITALS: BP 129/80; PULSE 105; RESP 18; TEMP 36.4; O2SAT 96
[2021-09-12 08:24] VITALS: BP 129/80; PULSE 105
[2021-09-12] MEDS: Propranolol HCL 10 MG TABLET PO ×2 (08:24→20:56)
[2021-09-12 08:25] VITALS: BP 129/80; PULSE 105
[2021-09-12] MEDS: amLODIPine Besylate 10 MG TABLET PO (08:25)
[2021-09-12] MEDS: Cholecalciferol (Vitamin D3) 25 MCG TABLET 50 MCG PO (08:25)
[2021-09-12] MEDS: ARIPiprazole 2 MG TABLET 4 MG PO (10:47)
[2021-09-12] MEDS: Dicyclomine HCl 10 MG CAPSULE PO ×2 (13:38→20:57)
[2021-09-12] MEDS: LORazepam 0.5 MG TABLET PO ×2 (13:38→20:56)
--- NOTE | 2021-09-12 15:10 | HO.PSYCHPN ---
Subjective Subjective Date of Service: 09/12/21 Reason For Visit: SI Interim History: pt presents as anxious, multiple somatic complaints. had forgotten that we had discussed his starting abilify 4 mg this morning. felt that the 5 last night did not help very much, so agreed to increase dosing to 5 for tonight. we agree on discharge, even though he is anxious that he is not ready yet. per staff, 7/10 pain in abd. c/o stomach cramps, bentyl helpful. meds make him feel like he's floating. unsure how the meds are working for him. slept 8 hours. thinks abilify didn't work as well yesterday as it had prior. Mental Status Exam Mental Status Exam Narrative: appropriately dressed and groomed, no PMA/PMR, cooperative with interview. speech somewhat soft, nml amount and rate, flattened prosody. thoughts linear and logical with no delusions or paranoia. affect constricted, normo-intense, non-labile. mood depressed and anxious. no AVH expressed. no SI/HI expressed. Diagnostics Vital Signs (24Hr): Vital Signs - 24 hr 09/11/21 20:21 09/12/21 08:22 09/12/21 08:24 Temperature 98.0 F 97.6 F Pulse Rate 96 105 H 105 H Respiratory Rate 17 18 Blood Pressure 143/94 H 129/80 129/80 Pulse Oximetry 97 96 09/12/21 08:25 Temperature Pulse Rate 105 H Respiratory Rate Blood Pressure 129/80 Pulse Oximetry BMI result Body Mass Index 25.1 Labs Results: 08/28/21 12:24 08/28/21 12:24 Medications Medications Current Medications Acetaminophen (Acetaminophen 325 Mg Tablet) 650 mg PO Q6H PRN PRN Reason: Headache/Pain Mild Scale (1-3) Last Admin: 09/11/21 09:38 Dose: 650 mg Documented by: Al Hydroxide/Mg Hydroxide (Magnesium Hydrox/Alum Hydrox 30 Ml Oral.Susp) 30 ml PO Q6H PRN PRN Reason: Heartburn/Nausea Last Admin: 09/10/21 20:04 Dose: 30 ml Documented by: Amlodipine Besylate (Amlodipine Besylate 10 Mg Tablet) 10 mg PO DAILY ÁLVARO; Protocol Last Admin: 09/12/21 08:25 Dose: 10 mg Documented by: Aripiprazole (Aripiprazole 5 Mg Tablet) 5 mg PO BID@0900,1700 [facility] Dicyclomine HCl (Dicyclomine Hcl 10 Mg Capsule) 10 mg PO TIDAC PRN PRN Reason: gastric discomfort Last Admin: 09/12/21 13:38 Dose: 10 mg Documented by: Famotidine (Famotidine 20 Mg Tablet) 20 mg PO BID PRN PRN Reason: GI upset Last Admin: 09/12/21 01:22 Dose: 20 mg Documented by: Lorazepam (Lorazepam 0.5 Mg Tablet) 0.5 mg PO Q4H PRN PRN Reason: moderate anxiety Last Admin: 09/12/21 13:38 Dose: 0.5 mg Documented by: Magnesium Hydroxide (Milk Of Magnesia 30 Ml Oral.Susp) 30 ml PO DAILY PRN PRN Reason: Constipation Non-Formulary Medication (Levalbuterol) 45 mcg INHALE Q2H PRN PRN Reason: Shortness of Breath Last Admin: 09/12/21 08:42 Dose: 45 mcg Documented by: Patient Own Medication (Trelegy Ellipta) 1 each INHALE DAILY [facility] Last Admin: 09/12/21 08:44 Dose: 1 each Documented by: Nortriptyline HCl (Nortriptyline Hcl 25 Mg Capsule) 50 mg PO BEDTIME [facility] Last Admin: 09/11/21 20:22 Dose: 50 mg Documented by: Pharmacy Consult (Consult Rx Perform Med Rec) 1 each MISCELLANE ONCE PRN PRN Reason: Consult order Polyethylene Glycol (Polyethylene Glycol 3350 17 Gm Powd.Pack) 17 gm PO DAILY [facility] Last Admin: 09/12/21 09:49 Dose: Not Given Documented by: Propranolol HCl (Propranolol Hcl 10 Mg Tablet) 10 mg PO BID [facility]; Protocol Last Admin: 09/12/21 08:24 Dose: 10 mg Documented by: Simethicone (Simethicone 80 Mg Tab.Chew) 160 mg PO TIDAC PRN PRN Reason: flatus Last Admin: 09/09/21 16:30 Dose: 160 mg Documented by: Trazodone HCl (Trazodone Hcl 50 Mg Tablet) 50 mg PO BEDTIME PRN PRN Reason: Insomnia Vitamin D (Cholecalciferol (Vitamin D3) 25 Mcg Tablet) 50 mcg PO DAILY [facility] Last Admin: 09/12/21 08:25 Dose: 50 mcg Documented by: Allergies Allergies Allergy/AdvReac Type Severity Reaction Status Date / Time lamotrigine [From LAMICTAL] Allergy Severe agitation Verified 08/11/21 13:14 and anxiety with titration codeine [CODEINE] Allergy Intermediate INSOMNIA Verified 08/11/21 13:14 Penicillins [PENICILLINS] Allergy Intermediate RASH Verified 08/11/21 13:14 epinephrine [EPINEPHRINE] AdvReac Intermediate Hypertensio Verified 08/11/21 13:14 n escitalopram [From LEXAPRO] AdvReac Intermediate NIGHTMARES Verified 08/11/21 13:14 sertraline [From ZOLOFT] AdvReac Intermediate NIGHTMARES Verified 08/11/21 13:14 sulfamethoxazole AdvReac Intermediate STOMACH Verified 08/11/21 13:14 [From BACTRIM] UPSET Assessment & Plan Assessment & Plan (1) Major depressive disorder, recurrent episode, severe with anxious distress: Status: Acute Code(s): F33.2 - Major depressive disorder, recurrent severe without psychotic features Assessment and Plan: started abilify 2 mg daily 08/29, dosing increased to 5 mg daily as of 08/30. pamelor increased from 20 mg QHS to 50 mg QHS as of 08/30. ECT is an option per [facility]; pt declining in favor of med trial at the moment. otherwise continued outpt regimen. 09/02- pt reports decrease anxiety, depressed mood, hopeless tearful passive SI but no plan or intent. Propanolol 10mg po BID started per pt request for anxiety. 09/03- d/c propanolol due to dizziness. change abilify to dinner time, pt reports increase heartburn since abilify started at bedtime. some improvement in mood. less passive SI. no plan. 09/04: feeling heavy and off cognitively. began taper of bentyl and famotidine, two medications which may no longer be necessary and which may have strong anticholinergic side effects. 09/05: continue current regimen with the addition of ativan 1 mg PRNs. plan to further taper suspect medications tomorrow. 09/06: bentyl and scheduled famotidine DCed. 09/07: propranolol 10 BID started for tachycardia, anxiety. 09/08: tachycardia improved on inderal, anxiety persists. 09/11: abilify 4 mg added in the mornings and 5 pm abilify dose changed to 4 mg as well. 09/12: abilify dosing changed to 5 in the morning and 5 at dinner. discharge I spent minutes with the patient and/or on the patient floor today, greater than?50% of which was spent counseling/coordinating care. Reason for contiued inpatient stay Substantial Risk for: inability to function and rapid decompensation
[2021-09-12] MEDS: ARIPiprazole 5 MG TABLET PO (17:06)
[2021-09-12 20:52] VITALS: BP 127/72; PULSE 104; RESP 18; TEMP 36.8; O2SAT 97
[2021-09-12 20:56] VITALS: BP 127/72; PULSE 104
[2021-09-12] MEDS: Nortriptyline HCl 25 MG CAPSULE 50 MG PO (20:56)
[2021-09-12] MEDS: Magnesium Hydrox/Alum Hydrox 30 ML ORAL.SUSP PO (21:34)
[2021-09-13 06:00] VITALS: BP 121/76; PULSE 100; RESP 18; TEMP 36.6; O2SAT 96
[2021-09-13] MEDS: LORazepam 0.5 MG TABLET PO ×2 (07:56→22:42)
[2021-09-13 08:33] VITALS: BP 121/76; PULSE 100
[2021-09-13] MEDS: amLODIPine Besylate 10 MG TABLET PO (08:33)
[2021-09-13] MEDS: Cholecalciferol (Vitamin D3) 25 MCG TABLET 50 MCG PO (08:33)
[2021-09-13] MEDS: ARIPiprazole 5 MG TABLET PO ×2 (08:33→17:26)
[2021-09-13] MEDS: Propranolol HCL 10 MG TABLET PO ×2 (08:33→20:48)
[2021-09-13] MEDS: Famotidine 20 MG TABLET 10 MG PO ×2 (12:18→22:47)
[2021-09-13] MEDS: Dicyclomine HCl 10 MG CAPSULE PO (12:54)
--- NOTE | 2021-09-13 14:42 | HO.PSYCHPN ---
Subjective Subjective Date of Service: 09/13/21 Reason For Visit: SI Interim History: pt reports he felt the medication - abilify - did not work as well last night as it had the other night. suggests if he is feeling that much anxiety perhaps taking an ativan PRN may be useful. tp states he feels that the several admissions yesterday increased the acuity of the unit substantially and that he absorbed that energy and consequently his anxiety went up as well. talking himself into discharging tomorrow, getting the feeling maybe being more active and a change of scenery may help his mental state. per staff, attending groups, visible, social, med-compliant. anx 7, dep 5. eating and sleeping. got PRN of ativan, bentyl, and maalox. Mental Status Exam Mental Status Exam Narrative: appropriately dressed and groomed, no PMA/PMR, cooperative with interview. speech somewhat soft, nml amount and rate, flattened prosody. thoughts linear and logical with no delusions or paranoia. affect constricted, normo-intense, non-labile. mood depressed and anxious. no AVH expressed. no SI/HI expressed. Diagnostics Vital Signs (24Hr): Vital Signs - 24 hr 09/12/21 20:52 09/12/21 20:56 09/13/21 06:00 Temperature 98.2 F 97.8 F Pulse Rate 104 H 104 H 100 Respiratory Rate 18 18 Blood Pressure 127/72 127/72 121/76 Pulse Oximetry 97 96 09/13/21 08:33 Temperature Pulse Rate 100 Respiratory Rate Blood Pressure 121/76 Pulse Oximetry BMI result Body Mass Index 25.1 Labs Results: 08/28/21 12:24 08/28/21 12:24 Medications Medications Current Medications Acetaminophen (Acetaminophen 325 Mg Tablet) 650 mg PO Q6H PRN PRN Reason: Headache/Pain Mild Scale (1-3) Last Admin: 09/11/21 09:38 Dose: 650 mg Documented by: Al Hydroxide/Mg Hydroxide (Magnesium Hydrox/Alum Hydrox 30 Ml Oral.Susp) 30 ml PO Q6H PRN PRN Reason: Heartburn/Nausea Last Admin: 09/12/21 21:34 Dose: 30 ml Documented by: Amlodipine Besylate (Amlodipine Besylate 10 Mg Tablet) 10 mg PO DAILY ÁLVARO; Protocol Last Admin: 09/13/21 08:33 Dose: 10 mg Documented by: Aripiprazole (Aripiprazole 5 Mg Tablet) 5 mg PO BID@0900,1700 [facility] Last Admin: 09/13/21 08:33 Dose: 5 mg Documented by: Dicyclomine HCl (Dicyclomine Hcl 10 Mg Capsule) 10 mg PO TIDAC PRN PRN Reason: gastric discomfort Last Admin: 09/13/21 12:54 Dose: 10 mg Documented by: Famotidine (Famotidine 20 Mg Tablet) 10 mg PO BID [facility] Last Admin: 09/13/21 12:18 Dose: 10 mg Documented by: Lorazepam (Lorazepam 0.5 Mg Tablet) 0.5 mg PO Q4H PRN PRN Reason: moderate anxiety Last Admin: 09/13/21 07:56 Dose: 0.5 mg Documented by: Magnesium Hydroxide (Milk Of Magnesia 30 Ml Oral.Susp) 30 ml PO DAILY PRN PRN Reason: Constipation Non-Formulary Medication (Levalbuterol) 45 mcg INHALE Q2H PRN PRN Reason: Shortness of Breath Last Admin: 09/13/21 07:53 Dose: 45 mcg Documented by: Patient Own Medication (Trelegy Ellipta) 1 each INHALE DAILY [facility] Last Admin: 09/13/21 08:35 Dose: 1 each Documented by: Nortriptyline HCl (Nortriptyline Hcl 25 Mg Capsule) 50 mg PO BEDTIME [facility] Last Admin: 09/12/21 20:56 Dose: 50 mg Documented by: Pharmacy Consult (Consult Rx Perform Med Rec) 1 each MISCELLANE ONCE PRN PRN Reason: Consult order Polyethylene Glycol (Polyethylene Glycol 3350 17 Gm Powd.Pack) 17 gm PO DAILY [facility] Last Admin: 09/13/21 10:11 Dose: Not Given Documented by: Propranolol HCl (Propranolol Hcl 10 Mg Tablet) 10 mg PO BID [facility]; Protocol Last Admin: 09/13/21 08:33 Dose: 10 mg Documented by: Simethicone (Simethicone 80 Mg Tab.Chew) 160 mg PO TIDAC PRN PRN Reason: flatus Last Admin: 09/09/21 16:30 Dose: 160 mg Documented by: Trazodone HCl (Trazodone Hcl 50 Mg Tablet) 50 mg PO BEDTIME PRN PRN Reason: Insomnia Vitamin D (Cholecalciferol (Vitamin D3) 25 Mcg Tablet) 50 mcg PO DAILY ÁLVARO Last Admin: 09/13/21 08:33 Dose: 50 mcg Documented by: Allergies Allergies Allergy/AdvReac Type Severity Reaction Status Date / Time lamotrigine [From LAMICTAL] Allergy Severe agitation Verified 08/11/21 13:14 and anxiety with titration codeine [CODEINE] Allergy Intermediate INSOMNIA Verified 08/11/21 13:14 Penicillins [PENICILLINS] Allergy Intermediate RASH Verified 08/11/21 13:14 epinephrine [EPINEPHRINE] AdvReac Intermediate Hypertensio Verified 08/11/21 13:14 n escitalopram [From LEXAPRO] AdvReac Intermediate NIGHTMARES Verified 08/11/21 13:14 sertraline [From ZOLOFT] AdvReac Intermediate NIGHTMARES Verified 08/11/21 13:14 sulfamethoxazole AdvReac Intermediate STOMACH Verified 08/11/21 13:14 [From BACTRIM] UPSET Assessment & Plan Assessment & Plan (1) Major depressive disorder, recurrent episode, severe with anxious distress: Status: Acute Code(s): F33.2 - Major depressive disorder, recurrent severe without psychotic features Assessment and Plan: started abilify 2 mg daily 08/29, dosing increased to 5 mg daily as of 08/30. pamelor increased from 20 mg QHS to 50 mg QHS as of 08/30. ECT is an option per [facility]; pt declining in favor of med trial at the moment. otherwise continued outpt regimen. 09/02- pt reports decrease anxiety, depressed mood, hopeless tearful passive SI but no plan or intent. Propanolol 10mg po BID started per pt request for anxiety. 09/03- d/c propanolol due to dizziness. change abilify to dinner time, pt reports increase heartburn since abilify started at bedtime. some improvement in mood. less passive SI. no plan. 09/04: feeling heavy and off cognitively. began taper of bentyl and famotidine, two medications which may no longer be necessary and which may have strong anticholinergic side effects. 09/05: continue current regimen with the addition of ativan 1 mg PRNs. plan to further taper suspect medications tomorrow. 09/06: bentyl and scheduled famotidine DCed. 09/07: propranolol 10 BID started for tachycardia, anxiety. 12/17: tachycardia improved on inderal, anxiety persists. 09/11: abilify 4 mg added in the mornings and 5 pm abilify dose changed to 4 mg as well. 09/12: abilify dosing changed to 5 in the morning and 5 at dinner. discharge I spent minutes with the patient and/or on the patient floor today, greater than?50% of which was spent counseling/coordinating care. Reason for contiued inpatient stay Substantial Risk for: inability to function and rapid decompensation
[2021-09-13 20:48] VITALS: BP 137/78; PULSE 102
[2021-09-13] MEDS: Nortriptyline HCl 25 MG CAPSULE 50 MG PO (20:48)
[2021-09-13 20:50] VITALS: BP 137/78; PULSE 102; RESP 16; TEMP 36.3; O2SAT 96
[2021-09-14 08:00] VITALS: BP 119/83; PULSE 94; RESP 18; TEMP 36.4; O2SAT 97
[2021-09-14] MEDS: polyethylene glycoL 3350 17 GM POWD.PACK PO (08:23)
[2021-09-14 08:24] VITALS: BP 119/83; PULSE 94
[2021-09-14] MEDS: amLODIPine Besylate 10 MG TABLET PO (08:24)
[2021-09-14] MEDS: Cholecalciferol (Vitamin D3) 25 MCG TABLET 50 MCG PO (08:24)
[2021-09-14] MEDS: ARIPiprazole 5 MG TABLET PO (08:24)
[2021-09-14 08:25] VITALS: BP 119/83; PULSE 94
[2021-09-14] MEDS: Famotidine 20 MG TABLET 10 MG PO (08:25)
[2021-09-14] MEDS: Propranolol HCL 10 MG TABLET PO (08:25)
[2021-09-14] MEDS: Dicyclomine HCl 10 MG CAPSULE PO (09:56)
--- NOTE | 2021-09-14 11:09 | PM.PSYDC ---
DS: Providers Provider Date of Service: 09/14/21 Date of admission: 08/28/21 21:54 Primary care physician: Jacob Loza MD DS: Diagnosis Discharge Diagnosis (1) Major depressive disorder, recurrent episode, severe with anxious distress: Status: Acute DS: Medications Discharge Medications Home Medications: Home Medications Medication Instructions Recorded Confirmed amlodipine 10 mg tablet 10 mg PO DAILY 08/28/21 08/28/21 cholecalciferol (vitamin D3) 25 50 mcg PO DAILY 08/28/21 08/28/21 mcg (1,000 unit) tablet (Vitamin D3) fluticasone fur. 200 mcg-umeclid 1 puff INHALATION DAILY 08/28/21 08/28/21 62.5 mcg-vilant 25 mcg inhalat.powder (Trelegy Ellipta) levalbuterol tartrate 45 2 puff INHALATION Q4H PRN 08/28/21 08/28/21 mcg/actuation aerosol inhaler lorazepam 1 mg tablet 1 tab PO TID PRN 08/28/21 08/28/21 polyethylene glycol 3350 17 17 g PO DAILY 08/28/21 08/28/21 gram/dose oral powder (Miralax) simethicone 80 mg chewable tablet 160 mg PO TIDAC 08/28/21 08/28/21 Previous Rx's Medication Instructions Recorded aripiprazole 5 mg tablet (Abilify) 5 mg PO BID@0900,1700 30 Days #60 09/14/21 tab dicyclomine 10 mg capsule 10 mg PO TIDAC PRN 30 Days #90 cap 09/14/21 famotidine 20 mg tablet 10 mg PO BID 30 Days #30 tab 09/14/21 nortriptyline 25 mg capsule 50 mg PO BEDTIME 30 Days #60 cap 09/14/21 propranolol 10 mg tablet 10 mg PO BID 30 Days #60 tab 09/14/21 Mental Status Exam Mental Status Exam Narrative: appropriately dressed and groomed, no PMA/PMR, cooperative with interview. speech somewhat soft, nml amount and rate, flattened prosody. thoughts linear and logical with no delusions or paranoia. affect constricted, normo-intense, non-labile. mood fair to middle. no SI/HI/AVH. DS: Summary Hospital Course Hospital Course: from 08/29 admission note: Narrative: pt reports he recently had SBO and was decompressed and discharged from the hospital.? that was in late june.? since then he has been having severe anxiety with panic attacks as well as continued depression.? his activities, such as driving and going to the store, have dropped off greatly since medical discharge.? per CARE team benjamín has been having passive SI, no intent or plan.? he expressed hopelessness and reported poor sleep and appetite.? 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 ECT has been moderately helpful in the past but may no longer been a reasonable option, and pt has not benefitted from TMS.? he reports trials of lithium, wellbutrin, zyprexa, effexor, zoloft, lexapro.? he felt zombified from effexor and zyprexa after taking them a few weeks and has ADRs of nightmares listed for zoloft and lexapro.? wellbutrin made him dizzy.? he can't recall what happened with lithium... perhaps nothing, and that was the problem.? he denies having tried MAOI, stimulant, cymbalta, or abilify.? agreeable to low-dose abilify to target anxiety, ruminativeness, depression.? will start 2 mg daily today.? also planning to increase pamelor once tolerability of abilify is established.? meds reviewed and reconciled.? will broach ECT with Dr. Peña. Past Psychiatric History: History of good response to ECT past history of panic disorder has not been able to stabilize now for number of years despite outpatient therapy counseling [facility].? seen at [facility] currently.? h/o multiple inpatient stays, ECT, TMS. Medical Evaluation Reviewed: Yes [facility] Medical History? Abnormal nuclear stress test Anxiety Asthma CAD (coronary artery disease) Chronic respiratory failure COPD (chronic obstructive pulmonary disease) COVID-19 vaccine series completed Generalized anxiety disorder GERD (gastroesophageal reflux disease) History of major depression HLD (hyperlipidemia) Hx of small bowel obstruction IBS (irritable bowel syndrome) Panic disorder Pneumonitis Smoking Tardive dyskinesia Surgical History? H/O bilateral inguinal hernia repair Hx of cholecystectomy Hx of colonoscopy Stented coronary artery Family History: grandfather suicided via firearm. Social History:? 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 He has a supportive family including sister and mother. Substance History: no substance misuse Trauma History:? no history of sexual or physical trauma 08/30: pt feeling quite depressed today, reports spending a lot of time crying and doesn't know why.? overwhelmed and confused at his state.? review medications from last hospitalization.? agreeable to increase pamelor to 50 mg tonight.? also denies any problematic side effects from abilify, agrees to increase dose to 5 mg this evening.? asks about Vit D levels, states he has h/o low level but has been supplementing.? MD will check Vitamin D, B12, folate, TSH.? pt reports he is eating and sleeping well.? no other complaints or requests.? per staff, attending groups.? very anxious and depressed.? slept well after 1030 pm.? eating well.? no SI/HI. 08/31: pt reports he can feel the medication, explaining he feels a bit heavy and tired.? also notes he has not had a panic attack yet today, which is a departure from his usual pattern of late.? also crying less.? discuss his desire to change outpt prescribers.? informs pt ECT is not ruled out, but he states he would like to try meds first.? agrees to move abilify to as the 5 mg dose may have been a bit sedating for him.? per staff, dep/anx continue.? watching TV in milieu.? social with select peer.? got ativan for insomnia last NOC. 09/04: pt found in the milieu, social.? agreeable to come to interview room for discussion.? states he had a great day on saturday but then yesterday felt off again.? c/o feeling very physically heavy with dry mouth and having word-finding difficulties.? his med regimen is reviewed and both bentyl and famotidine are identified as medications associated with anti-cholinergic side effects.? pt states they are vestigial scripts at this point and were only started when he began to have symptoms of the small bowel obstruction and it was misdiagnosed as IBS.? he is amenable to taper and DC of these medications.? we start with decreasing bentyl from 20 TID to 10 TID and famotidine from 40 BID to 20 BID.? pt is appreciative of these changes and eager for improvement.? per staff, med-compliant.? no SI/HI.? 04/01 anx, 03/02 dep.? attending groups. ? propranolol started over w/e but then DCed at pt request due to hypotension. 09/05: pt reports his mental acuity has improved since yesterday, but his mouth continues quite dry.? he still does not feel himself cognitively, however.? he is agreeable to give the current regimen another day before continuing to taper the likely offending and unnecessary medications.? concerned as he experiences the panic returning now.? MD prescribes ativan 1 mg PRNs for PANIC, while pt also has 0.5 mg PRNs for ANXIETY.? per staff, feeling anxious a bit. ? using ativan PRNs.? denies SI/AVH.? slept 1030 pm on. 09/06: pt reports he feels less foggy mentally and his speech is improved.? agreeable to DC bentyl and famotidine (will leave PRN of famotidine).? feeling trembly and depressed today.? per staff, shaky yesterday, asked for assistance to walk to bathroom. attending groups, social. 09/07: pt reports? feeling shaky and spacey today.? feels weak every morning.? discuss this may be related to pamelor.? agrees to give it a few more days.? pt requests to restart propranolol for tachycardia.? MD restarted med at 10 BID.? per staff, feeling better yesterday physically.? anx/dep but better.? attending groups.? very anxious on sole, got ativan 1 mg. 09/11: pt c/o continued panic in the mornings, states he feels good after taking abilify in the eves.? agreeable to add another dose in the morning.? will starty with a now dose this morning.? would like to discharge home before the end of the week.? per staff, c/o stomach pain.? insomnia.? got some bentyl, which was helpful. 09/12: pt presents as anxious, multiple somatic complaints.? had forgotten that we had discussed his starting abilify 4 mg this morning.? felt that the 5 last night did not help very much, so agreed to increase dosing to 5 for tonight.? we agree on discharge, even though he is anxious that he is not ready yet.? per staff, 04/01 pain in abd.? c/o stomach cramps, bentyl helpful.? meds make him feel like he's floating.? unsure how the meds are working for him.? slept 8 hours.? thinks abilify didn't work as well yesterday as it had prior. 09/13: pt reports he felt the medication - abilify - did not work as well last night as it had the other night.? suggests if he is feeling that much anxiety perhaps taking an ativan PRN may be useful.? tp states he feels that the several admissions yesterday increased the acuity of the unit substantially and that he absorbed that energy and consequently his anxiety went up as well. ? talking himself into discharging tomorrow, getting the feeling maybe being more active and a change of scenery may help his mental state.? per staff, attending groups, visible, social, med-compliant.? anx 7, dep 5.? eating and sleeping.? got PRN of ativan, bentyl, and maalox.? 09/14: pt has continued to have stomach upset, improved with bentyl PRN. denied any safety concerns. declined ketamine referral. meds reviewed, reconciled, and prescribed. discharged to home today per pt request. aftercare in place. Precis: started abilify 2 mg daily 08/29, dosing increased to 5 mg daily as of 08/30. pamelor increased from 20 mg QHS to 50 mg QHS as of 08/30. ECT is an option per Casey; pt declining in favor of med trial at the moment. otherwise continued outpt regimen. 09/02- pt reports decrease anxiety, depressed mood, hopeless tearful passive SI but no plan or intent. Propanolol 10mg po BID started per pt request for anxiety. 09/03- d/c propanolol due to dizziness. change abilify to dinner time, pt reports increase heartburn since abilify started at bedtime. some improvement in mood. less passive SI. no plan. 09/04: feeling heavy and off cognitively.? began taper of bentyl and famotidine, two medications which may no longer be necessary and which may have strong anticholinergic side effects. 09/05: continue current regimen with the addition of ativan 1 mg PRNs.? plan to further taper suspect medications tomorrow. 09/06: bentyl and scheduled famotidine DCed. 09/07: propranolol 10 BID started for tachycardia, anxiety. 09/08: tachycardia improved on inderal, anxiety persists. 09/11: abilify 4 mg added in the mornings and 5 pm abilify dose changed to 4 mg as well. 09/12: abilify dosing changed to 5 in the morning and 5 at dinner. discharged 09/14. Time Spent with Patient Time attestation: Total time spent providing and/or coordinating discharge services: Discharge Plan Discharge Patient Disposition: Home, Self-Care Discharge Diagnosis: Major Depressive Disorder, Recurrent, Severe Referrals: Yves Pyle (psychiatrist) [Other] - 10/03/21 12:30 pm (Appointment will be over the phone - he will call your cell number) Laurie Herrera (therapist) [Other] - 09/27/21 2:00 pm (Telehealth appointment) Partial Hospitalization Program (PHP) [Other] (Call for more information or to make a referral.) Jacob Loza MD [Primary Care Provider] - 1 Week (Provider would call pt for follow up appt) Discharge Medications: New nortriptyline 25 mg Capsule 50 mg PO BEDTIME 30 Days Qty: 60 RF: 0 propranolol 10 mg Tablet 10 mg PO BID 30 Days Qty: 60 RF: 0 dicyclomine 10 mg Capsule 10 mg PO TIDAC PRN (Reason: gastric discomfort) 30 Days Qty: 90 RF: 0 aripiprazole [Abilify] 5 mg Tablet 5 mg PO BID@0900,1700 30 Days Qty: 60 RF: 0 famotidine 20 mg Tablet 10 mg PO BID 30 Days Qty: 30 RF: 0 Continued lorazepam 1 mg tablet 1 tab PO TID PRN (Reason: Anxiety) RF: 0 Trelegy Ellipta 200-62.5-25 mcg blister with device 1 puff inhalation DAILY RF: 0 cholecalciferol (vitamin D3) [Vitamin D3] 25 mcg (1,000 unit) Tablet 50 mcg PO DAILY RF: 0 simethicone 80 mg Tablet,Chewable 160 mg PO TIDAC RF: 0 polyethylene glycol 3350 [Miralax] 17 gram/dose Powder 17 g PO DAILY RF: 0 amlodipine 10 mg Tablet 10 mg PO DAILY RF: 0 levalbuterol tartrate 45 mcg/actuation Hfa Aerosol Inhaler 2 puff INHALATION Q4H PRN (Reason: Respiratory Distress) RF: 0 Discontinued quetiapine 25 mg tablet 12.5 mg PO BID RF: 0 famotidine 40 mg tablet 40 mg PO BID RF: 0 nortriptyline 10 mg capsule 20 mg PO BEDTIME RF: 0 dicyclomine 10 mg capsule 30 mg PO TIDAC RF: 0 Discharge Orders: Discharge Order (Routine); Ordered 09/14/21 Ordered By: Dago Maxwell Diet: advance to usual diet Activity on Discharge: As tolerated Stand Alone Forms: Patient Portal Discharge page, Community Support Care Plan Goals: maintain safe and independent living in the outpatient treatment setting Health Concerns: chronic gastrointestinal symptoms Plan of Treatment: take medications as prescribed, attend appointments as scheduled Assessment: not at imminent risk of harm to self or others Discharge Date/Time: 09/14/21 14:01
[2021-09-14] MEDS: LORazepam 0.5 MG TABLET PO (12:29)
--- NOTE | 2021-09-14 14:03 | PC.NURSE ---
Mr Cameron is alert, fully oriented, pleasant and cooperative with discharge process. He reports feeling much better than when he arrived, specifically, My thoughts are much clearer. Mr Cameron denies ideation, plan or intent to harm himself or others. He denies perceptual disturbance of any kind. After teaching, he verbalized understanding of prescribed medication regime and follow up appointments. He denies current physical complaint. He denies any questions regarding discharge plan.
== END 2021-09-14 14:01 | disposition home or self-care (01) | DRG 885 ==
LOC: HO.ED 11:25 → HO.PADLT16 22:01
PROVIDERS: Admitting Provider Psychiatry & Neurology Psychiatry; Emergency Provider Emergency Medicine; PCP Internal Medicine; Visit Provider Psychiatry & Neurology Psychiatry
DX: F33.2 Major depressive disorder, recurrent severe without psychotic features (principal); R45.851 Suicidal ideations; Z20.822 Contact with and (suspected) exposure to COVID-19; I25.10 Atherosclerotic heart disease of native coronary artery without angina pectoris; Z87.891 Personal history of nicotine dependence; Z88.0 Allergy status to penicillin; Z88.2 Allergy status to sulfonamides; Z88.5 Allergy status to narcotic agent; Z79.899 Other long term (current) drug therapy
CPT/HCPCS: 36415; 80053; 80061; 80307; 82306; 82607; 82746; 82947; 83036; 84443; 85025; 87635; 93005; 99285

== ENCOUNTER → 2021-10-16 10:10 | Outpatient (BNVA) | payer OTHER, SELFPAY | PROVIDERS: PCP Internal Medicine; Referring Provider Internal Medicine; Visit Provider Internal Medicine Cardiovascular Disease ==

== ENCOUNTER → 2021-10-23 13:26 | Outpatient (BNVA) | payer OTHER, SELFPAY | PROVIDERS: PCP Internal Medicine; Visit Provider Hospitalist ==

== ENCOUNTER → 2021-11-27 14:45 | Outpatient (BNVA) | payer OTHER, SELFPAY | PROVIDERS: PCP Internal Medicine; Visit Provider Hospitalist | DX: J44.9 Chronic obstructive pulmonary disease, unspecified (principal) ==

== ENCOUNTER → 2022-01-15 13:20 | Outpatient (BNVA) | payer OTHER, SELFPAY | PROVIDERS: PCP Internal Medicine; Visit Provider Hospitalist | DX: J44.9 Chronic obstructive pulmonary disease, unspecified (principal) ==

== ENCOUNTER → 2022-02-12 13:09 | Outpatient (BNVA) | payer OTHER, SELFPAY | PROVIDERS: PCP Internal Medicine; Visit Provider Hospitalist | DX: J44.9 Chronic obstructive pulmonary disease, unspecified (principal) ==

== ENCOUNTER 2022-04-20 16:52 | Emergency (ER) | payer OTHER, MEDICARE, SELFPAY ==
--- NOTE | ~2022-04-20 | CT_ITS ---
EXAMINATION: CT ABDOMEN AND PELVIS WITHOUT CONTRAST CLINICAL INFORMATION: ABD pain x3 weeks worse x2 days, bloated R/0 SBO . COMPARISON: No pertinent prior studies are available for comparison. TECHNIQUE: Multidetector volumetric imaging was performed from the superior aspect of the liver through the pubic symphysis without contrast per renal stone protocol. Sagittal and coronal reformatted images were obtained on the technologist workstation. This CT examination was performed using dose optimization techniques as appropriate, variously including the following: *Automated exposure control *Adjustment of mA and/or kV according to patient size (this includes techniques or standardized protocols for targeted exams where dose is matched to indication/reason for exam; i.e. extremities or head) *Use of iterative reconstruction technique DLP: 433 mGy-cm. FINDINGS: LUNG BASES: Extensive emphysematous changes at the visualized lung bases LIVER, GALLBLADDER, BILIARY TREE: The non-contrast liver is normal in size, shape, and attenuation. No focal hepatic lesion or biliary ductal dilatation is present. The gallbladder surgically absent. PANCREAS: Unremarkable. SPLEEN: Unremarkable. ADRENAL GLANDS: Unremarkable. KIDNEYS AND URETERS: The kidneys are normal in size, shape, and attenuation. No hydronephrosis, hydroureter, or calculi seen. No perinephric stranding. BLADDER: Unremarkable. GASTROINTESTINAL TRACT: A few scattered colonic diverticula are seen but there is no colonic wall thickening or pericolonic inflammatory change to suggest diverticulitis. Normal-appearing appendix in the right lower quadrant. No obstructive changes to the small bowel ABDOMINAL WALL: Chronic stranding in the region the right inguinal canal but no significant herniation on the study LYMPHOVASCULAR STRUCTURES: Extensive vascular calcification within the aorta iliac system. PELVIC VISCERA: Unremarkable. OSSEUS STRUCTURES: Unremarkable. CT/CT abdomen pelvis wo con IMPRESSION: Chronic appearing changes similar to the prior study. I do not appreciate any obstructive changes to the bowel at this time. There is scattered diverticulosis but no evidence for diverticulitis..
[2022-04-20 17:15] VITALS: BP 108/81; PULSE 102; RESP 18; TEMP 36.8; O2SAT 99; BMI 25.0
[2022-04-20 17:55] LABS: Alanine Aminotransferase 26 U/L (0-40); Albumin Level 4.5 g/dL (3.5-5.0); Alkaline Phosphatase 81 U/L (39-117); Anion Gap 17 (12-20); Aspartate Amino Transferase 19 U/L (5-37); Bilirubin Direct 0.2 mg/dL (0.0-0.5); Bilirubin Total 0.3 mg/dL (0.0-1.0); Blood Urea Nitrogen 18 mg/dL (9-16); Calcium 9.4 mg/dL (8.4-10.2); Carbon Dioxide 25 mmol/L (22-29); Chloride 103 mmol/L (96-108); Creatinine Clr Calc Pharmacy 66.9; Estimated Glomerular Filt Rate > 60; Glucose Random 93 mg/dL (60-115); Lipase 36 U/L (8-78); Potassium 4.3 mmol/L (3.3-5.1); Sodium 141 mmol/L (135-145); Total Protein 7.1 g/dL (6.5-8.0)
[2022-04-20 18:00] LABS: Hematocrit 43.8 % (42.0-52.0); Hemoglobin 14.4 g/dl (14.0-18.0); Mean Corpuscular HGB Conc 32.9 g/dl (31.0-36.0); Mean Corpuscular Hemoglobin 29.1 pg (27.0-33.0); Mean Corpuscular Volume 88.7 fL (80.0-98.0); Mean Platelet Volume 8.7 fL (9.4-12.4); Platelet Count 276 X10*3/uL (160-400); Red Blood Count 4.94 X10*6/uL (4.60-5.80); Red Cell Distribution Width 13.4 % (11.0-16.0)
--- NOTE | 2022-04-20 21:53 | ED.ABDPAIN ---
HPI - Abdominal Pain General Chief Complaint: Abdominal Pain Stated Complaint: gastric pain Time Seen by Provider: 04/20/22 21:28 Source: patient and family (Sister, Marily) Mode of arrival: ambulatory Limitations: no limitations History of Present Illness HPI narrative: 72-year-old male who presents emergency department for evaluation of abdominal pain x3 weeks. The patient states that he is experiencing upper abdominal into the x3 weeks. He states that 3 weeks ago he was diagnosed with a chest cold and treated with Z-Robinson and prednisone. After taking medications he states that his abdominal pain got worse and became frequent. Over the past 2 days the pain is been constant. He describes it as a twisting sensation runs his hand diffusely over his abdomen asked to localize the pain. The pain is 10/10. He also feels very bloated. He states he is having small bowel movements daily. He denied nausea or vomiting. He states that he had similar pain approximately 1 year prior and was hospitalized for a bowel obstruction. In reviewing his records he was admitted 07/11/2021 for small-bowel obstruction, CT scan showed dilated stomach and small bowel with inter mural thickening and mesenteric fat stranding with edema, he was treated with an NG tube. The patient denied fever, chills, rhinorrhea, sore throat, cough, chest pain, nausea, vomiting. States he occasionally feels short of breath he also states that occasionally over the past 3 weeks he has had intermittent blurred vision which resolves, he has no blurred vision at the time evaluation. MD elicited complaint: abdominal pain Pertinent past history: other (IBS, cholecystectomy, small-bowel obstruction in the past) Onset (ago): week(s) (3 weeks worse x2 days) Pain Consistency: constant Location: diffuse Severity: severe Pain scale (0-10): 10 Quality: other (Twist) Radiation: none Migration to: no migration Exacerbating factors: eating and movement Relieving factors: nothing Related Data Home Medications Medication Instructions Recorded Confirmed amlodipine 10 mg tablet 10 mg PO DAILY 08/28/21 10/16/21 cholecalciferol (vitamin D3) 25 50 mcg PO DAILY 08/28/21 10/16/21 mcg (1,000 unit) tablet (Vitamin D3) lorazepam 1 mg tablet 1 tab PO TID PRN Anxiety 08/28/21 10/16/21 polyethylene glycol 3350 17 17 g PO DAILY 08/28/21 10/16/21 gram/dose oral powder (Miralax) simethicone 80 mg chewable tablet 160 mg PO TIDAC 08/28/21 10/16/21 Previous Rx's Medication Instructions Recorded dicyclomine 10 mg capsule 10 mg PO TIDAC PRN gastric 09/14/21 discomfort 30 days #90 caps famotidine 20 mg tablet 10 mg PO BID 30 days #30 tabs 09/14/21 nortriptyline 25 mg capsule 50 mg PO BEDTIME 30 days #60 caps 09/14/21 propranolol 10 mg tablet 10 mg PO BID 30 days #60 tabs 09/14/21 blood pressure test kit-medium #1 ea 10/16/21 Symbicort 160 mcg-4.5 2 puff inhalation BID 30 days 10/25/21 mcg/actuation HFA aerosol inhaler #10.2 grams (budesonide-formoterol) levalbuterol tartrate 45 2 puff inhalation Q4H PRN for 11/03/21 mcg/actuation aerosol inhaler wheezing #15 ea budesonide 0.5 mg/2 mL suspension 0.5 mg (2 mL) inhalation BID 30 11/27/21 for nebulization days #120 mL tiotropium bromide 2.5 2 puff inhalation DAILY 90 days #3 01/15/22 mcg/actuation mist for inhalation ea (Spiriva Respimat) arformoterol 15 mcg/2 mL solution 2 ml inhalation Q12H #120 mL 01/23/22 for nebulization morphine 15 mg immediate release 15 mg PO Q4-6H PRN pain #8 tabs 04/21/22 tablet ondansetron 4 mg disintegrating 4 mg PO Q6-8H PRN nausea and 04/21/22 tablet vomiting #14 tabs Allergies Allergy/AdvReac Type Severity Reaction Status Date / Time lamotrigine [From LAMICTAL] Allergy Severe agitation Verified 04/10/22 15:55 and anxiety with titration codeine [CODEINE] Allergy Intermediate INSOMNIA Verified 04/10/22 15:55 Penicillins [PENICILLINS] Allergy Intermediate RASH Verified 04/10/22 15:55 epinephrine [EPINEPHRINE] AdvReac Intermediate Hypertensio Verified 04/10/22 15:55 n escitalopram [From LEXAPRO] AdvReac Intermediate NIGHTMARES Verified 04/10/22 15:55 sertraline [From ZOLOFT] AdvReac Intermediate NIGHTMARES Verified 04/10/22 15:55 sulfamethoxazole AdvReac Intermediate STOMACH Verified 04/10/22 15:55 [From BACTRIM] UPSET Review of Systems Review of Systems Yes all other systems are reviewed and are negative [facility] Past Medical History Medical History Abnormal nuclear stress test Anxiety Asthma CAD (coronary artery disease) Chronic respiratory failure COPD (chronic obstructive pulmonary disease) COVID-19 vaccine series completed Generalized anxiety disorder GERD (gastroesophageal reflux disease) History of major depression HLD (hyperlipidemia) Hx of small bowel obstruction IBS (irritable bowel syndrome) Panic disorder Pneumonitis Smoking Tardive dyskinesia Surgical History H/O bilateral inguinal hernia repair Hx of cholecystectomy Hx of colonoscopy Stented coronary artery Family History Family History Father No problems noted. Mother No problems noted. Social History Social History Household Members: Spouse and Children Household Members Other:: Eme[place] Housing: House Are you a primary technical healthcare consultant to a significant other at home: No Do you presently have visiting nurse or other home services: No Unable to assess alcohol history related to: Unknown Alcohol intake: never Patient Tobacco Use Status: Former Tobacco user Quit Date: 3 yrs ago Tobacco use type: Cigarette Years Smoked: 35 e-Cigarette/Vaping Use: Never Used Second Hand Smoke Exposure: No Advance Directives: No Advance Directives Information Provided: No service: No Sexual orientation: Lesbian/Triana/Homosexual Physical Exam ED Vital Signs: Vital Signs - 24 hr 04/20/22 17:15 04/21/22 00:25 Temperature 98.3 F Pulse Rate 102 H 96 Respiratory Rate 18 20 Blood Pressure 108/81 112/59 L Pulse Oximetry 99 96 Oxygen Delivery Method Nasal Cannula Nasal Cannula Oxygen Flow Rate 2 BMI result Body Mass Index 25.0 Const General: cooperative and no acute distress Orientation/consciousness: oriented to person and oriented to place Limitations: no limitations HENMT Head: Yes normal to inspection, Yes normocephalic and Yes atraumatic Ears: external ears normal General nose exam: Normal external nose present Face and sinus: Yes normal facial exam Mouth: Normal oral and palatal mucosa present Throat: Yes posterior oropharynx normal Eyes General: appearance normal, both eyes and all related structures Pupils: Equal, round and reactive pupils present Neck Neck: Yes normal visual inspection, Yes no lymphadenopathy, Yes trachea midline and Yes supple Chest Chest palpation & inspection: normal inspection of the chest and normal palpation of entire chest wall Resp Effort & Inspection: normal respiratory effort and able to speak in complete sentences Auscultation: clear to auscultation bilaterally Cardio Rate: regular rate Rhythm: regular rhythm Heart sounds: S1 normal heart sound present, S2 normal heart sound present and no murmurs GI Inspection: Yes distended Palpation (GI): Soft to palpation, Tenderness to palpation present (GI) (Diffusely tender) and no guarding Auscultation: Hyperactive bowel sounds present (Right lower quadrant) General: Yes no CVA tenderness Back/Spine/Pelvis Back: no CVA tenderness Skin General skin exam: no rashes or lesions noted Neuro General: oriented to person and oriented to place Cranial nerves: Yes CN's II-XII intact bilaterally and Yes Equal, round and reactive pupils present Cognition (Neuro): normal cognition Motor exam (neuro): 5/5 motor strength present throughout Extrem General: Yes normal to inspection Psych Appearance: grossly normal Speech and movement: Normal speech and movement present Affect: normal affect Attitude: cooperative Thought process: Normal thought process present Thought content: Normal thought content present Course Course Course Narrative: 72-year-old male who presents to the emergency department for evaluation of interim abdominal pain which abdominal distension x3 weeks (started after he was treated with prednisone Zithromax for chest congestion), worse x2 weeks with now a constant, twisting pain and abdominal distension with small bowel movements daily, no nausea vomiting fever or chills. Patient states that a similar presentation and was admitted 07/11/2021 for small-bowel obstruction. Patient currently states that his pain is 10/10 . His vital signs revealed an elevated pulse of 102 otherwise unremarkable. Abdominal exam did reveal distension with high-pitched bowel sounds in the right lower quadrant area with diffuse abdominal tenderness. 2206: Laboratory evaluation: CBC, BMP, liver, lipase were normal. I ordered a CT scan of the abdomen pelvis without IV contrast to evaluate him for possible bowel obstruction or other causes of his pain. Patient was ordered to get normal saline x1 L, Zofran 4 mg IV and morphine 4 mg IV. 0021: The CT scan of the patient's abdomen pelvis was interpreted by the radiologist as follows: IMPRESSION: Chronic appearing changes similar to the prior study. I do not appreciate any obstructive changes to the bowel at this time. There is scattered diverticulosis but no evidence for diverticulitis.. ?Dictated By: Kostas Carroll MD The patient only got minimal relief with the above treatment and he received a 2nd dose of morphine 4 mg IV. I did discuss the radiology reading with the patient and the fact there was no clear etiology for his pain. The patient is concerned that his pain is significant and that he does not have any medications to treat the pain at home. He states that the Bentyl is no longer working for his IBS. The patient does appear to be very anxious and states that he does not want to go home. The patient was given a GI cocktail with Maalox 30 cc, viscous lidocaine 10 cc and 10 cc to see if this improves his pain. 0120: The patient did not get any relief of his pain with the GI cocktail. It did causing the dry he but he does not want any antinausea medications at this time. The patient was advised to continue taking his Pepcid and Bentyl. Is also advised to take Tylenol every 4-6 hours as needed for pain and for pain not relieved by this medication he was prescribed morphine 15 mg every 4-6 hours (8 pills). Is also prescribed Zofran ODT 8 mg every 4-6 hours. 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 MDM - Abdominal Pain Lab Data Result diagrams: 04/20/22 17:30 04/20/22 17:30 Labs: Lab Results 04/20/22 04/20/22 Range/Units 17:30 17:30 WBC 7.0 (4.8-10.8) X10*3/uL RBC 4.94 (4.60-5.80) X10*6/uL Hgb 14.4 (14.0-18.0) g/dl Hct 43.8 (42.0-52.0) % MCV 88.7 (80.0-98.0) fL MCH 29.1 (27.0-33.0) pg MCHC 32.9 (31.0-36.0) g/dl RDW 13.4 (11.0-16.0) % Plt Count 276 (160-400) X10*3/uL MPV 8.7 L (9.4-12.4) fL Absolute Nucleated RBC 0.000 (0.0-0.012) X10*3/uL Nucleated RBC % (auto) 0.0 (0.0-0.2) /100WBC Sodium 141 (135-145) mmol/L Potassium 4.3 (3.3-5.1) mmol/L Chloride 103 (96-108) mmol/L Carbon Dioxide 25 (22-29) mmol/L Anion Gap 17 (12-20) BUN 18 H (9-16) mg/dL Creatinine 0.96 (0.5-1.4) mg/dL Estim Creat Clear Calc 66.9 Estimated GFR > 60 Random Glucose 93 (60-115) mg/dL Calcium 9.4 D (8.4-10.2) mg/dL Total Bilirubin 0.3 (0.0-1.0) mg/dL Direct Bilirubin 0.2 (0.0-0.5) mg/dL AST 19 (5-37) U/L ALT 26 (0-40) U/L Alkaline Phosphatase 81 D (39-117) U/L Total Protein 7.1 (6.5-8.0) g/dL Albumin 4.5 (3.5-5.0) g/dL Lipase 36 (8-78) U/L Discharge Plan Discharge Clinical Impression: Abdominal pain Patient Disposition: Home, Self-Care Instructions: Abdominal Pain (ED) Additional Instructions: Your blood work today included a complete blood count (CBC), basic metabolic panel (BMP), liver profile, and lipase . These tests were all normal. You had a CT scan of the abdomen pelvis without IV contrast and there is no clear cause for your pain. There was no evidence for a complete or partial bowel obstruction on the CT scan. At this time, I do not have a clear cause for your pain. It is possible this pain may be related to your irritable bowel syndrome. Continue taking your Bentyl. Take Tylenol (acetaminophen) 2 pills every 6 hours as needed for pain. For pain not relieved by Tylenol take morphine 15 mg pills, 1 pill every 4 hours as needed for pain. This medication will make you sleepy, do not drive or work while taking this medication. Morphine is a narcotic medication and can be addicting. If you are concerned about addiction you can ask the pharmacist for less pills or do not get this prescription filled. Take Zofran ODT 4 mg pills, 1 pill dissolved in your mouth every 8 hours as needed for nausea and vomiting. Follow-up with your doctor in 2 days. Please return to the emergency department if your symptoms get worse or if you develop any symptoms that are concerning to you. Prescriptions: New morphine 15 mg tablet 15 mg PO Q4-6H PRN (Reason: pain) Qty: 8 0RF Rx Instructions: The patient may ask for partial fill; Partial Fill upon patient request. ondansetron 4 mg tablet,disintegrating 4 mg PO Q6-8H PRN (Reason: nausea and vomiting) Qty: 14 0RF No Action budesonide-formoterol [Symbicort] 160-4.5 mcg/actuation HFA aerosol inhaler 2 puff inhalation BID 30 Days Qty: 10.2 11RF levalbuterol tartrate 45 mcg/actuation HFA aerosol inhaler 2 puff inhalation Q4H PRN (Reason: for wheezing) Qty: 15 11RF arformoterol 15 mcg/2 mL solution for nebulization 2 ml inhalation Q12H Qty: 120 0RF lorazepam 1 mg tablet 1 tab PO TID PRN (Reason: Anxiety) cholecalciferol (vitamin D3) [Vitamin D3] 25 mcg (1,000 unit) Tablet 50 mcg PO DAILY simethicone 80 mg Tablet,Chewable 160 mg PO TIDAC polyethylene glycol 3350 [Miralax] 17 gram/dose Powder 17 g PO DAILY amlodipine 10 mg Tablet 10 mg PO DAILY nortriptyline 25 mg Capsule 50 mg PO BEDTIME 30 Days Qty: 60 0RF propranolol 10 mg Tablet 10 mg PO BID 30 Days Qty: 60 0RF Protocol: Hold for SBP/HR < HOLD for SBP < : 90 HOLD for HR < : 60 dicyclomine 10 mg Capsule 10 mg PO TIDAC PRN (Reason: gastric discomfort) 30 Days Qty: 90 0RF famotidine 20 mg Tablet 10 mg PO BID 30 Days Qty: 30 0RF (DME) blood pressure test kit-medium Kit See Rx Instructions .Route Qty: 1 0RF Rx Instructions: As directed budesonide 0.5 mg/2 mL suspension for nebulization 0.5 mg inhalation BID 30 Days Qty: 120 11RF Spiriva Respimat 2.5 mcg/actuation mist 2 puff inhalation DAILY 90 Days Qty: 3 3RF
[2022-04-20] MEDS: ondansetron HCL 4 MG/2 ML VIAL IVPUSH (22:13)
[2022-04-20] MEDS: 0.9 % Sodium Chloride 1,000 ML 999 ML IV (22:13)
[2022-04-20] MEDS: Morphine Sulfate 4 MG/ML CARTRIDGE IVPUSH ×2 (22:13→23:22)
[2022-04-21 00:25] VITALS: BP 112/59; PULSE 96; RESP 20; O2SAT 96
[2022-04-21] MEDS: Lidocaine HCl Viscous 2 % 15 ML SOLUTION 10 ML PO (01:01)
[2022-04-21] MEDS: PHENobarb/Hyoscy/Atropine/Scop 10 ML ELIXIR PO (01:01)
[2022-04-21] MEDS: Magnesium Hydrox/Alum Hydrox 30 ML ORAL.SUSP PO (01:02)
[2022-04-21 04:06] VITALS: BP 121/67; PULSE 86; RESP 18; O2SAT 99
[2022-04-21] MEDS: Morphine Sulfate 2 MG/ML CARTRIDGE IVPUSH (04:46)
[2022-04-21 05:14] VITALS: BP 129/77; PULSE 89; RESP 14; O2SAT 98
== END 2022-04-21 05:55 | disposition home or self-care (01) ==
PROVIDERS: Emergency Provider Emergency Medicine Emergency Medical Services; PCP Internal Medicine
DX: R10.9 Unspecified abdominal pain (principal); E78.5 Hyperlipidemia, unspecified; I10 Essential (primary) hypertension; K58.9 Irritable bowel syndrome, unspecified; Z90.49 Acquired absence of other specified parts of digestive tract; Z87.891 Personal history of nicotine dependence
CPT/HCPCS: 36415; 74176; 80048; 80076; 83690; 85027; 96361; 96374; 96375; 96376; 99284; J2270; J2405

== ENCOUNTER 2022-08-10 13:27 | Outpatient (REF) | payer OTHER, MEDICARE, SELFPAY ==
--- NOTE | ~2022-08-10 | CT_ITS ---
EXAMINATION: CT CHEST SCREENING CLINICAL INFORMATION: 30 pack year history. Quit 4 years ago. COMPARISON: Previous chest CT most recent December 2020 and chest x-ray most recent June 2021 TECHNIQUE: Multidetector volumetric CT imaging of the chest is performed without contrast using low dose technique. Additional 2D coronal and sagittal reformatted images and axial 3D maximum intensity projection (MIP) images are generated on the CT workstation. This CT examination was performed using dose optimization techniques as appropriate, variously including the following: *Automated exposure control *Adjustment of mA and/or kV according to patient size (this includes techniques or standardized protocols for targeted exams where dose is matched to indication/reason for exam; i.e. extremities or head) *Use of iterative reconstruction technique DLP: 46 mGy-cm FINDINGS: LUNGS: Severe emphysema. 3 mm calcified right upper lobe nodule axial image 82 series 5. 4 mm heterogeneous right lower lobe nodule axial image 328 series 5. These are similar to previous exam. Multiple small 1 to 2 mm bilateral lower lobe nodules, right greater than left. Mild bronchiectasis and bronchial wall thickening in the right lower lobe. No endobronchial or endotracheal lesion. MEDIASTINUM: The mediastinum is normal. CORONARY ARTERY CALCIFICATION: Mild to moderate coronary artery and aortic valve calcification. PLEURA: There is no pleural effusion. No pleural mass or thickening. AXILLA: No lymphadenopathy. UPPER ABDOMEN: The gallbladder has been removed. OSSEOUS STRUCTURES: Degenerative changes of the spine. CT/CT lung screening IMPRESSION: Severe emphysema. Small pulmonary nodules, largest a 4 mm heterogeneous right lower lobe nodule. Airways disease greatest in the lower lobes. Mild to moderate coronary artery and aortic valve calcification. ASSESSMENT: Lung-RADS category 2: Benign RECOMMENDATION: Annual low-dose chest CT follow-up recommended.
== END 2022-08-10 13:28 | disposition home or self-care (01) ==
LOC: HO.CT 13:27
PROVIDERS: PCP Internal Medicine; Visit Provider Physician Assistant Medical
DX: Z12.2 Encounter for screening for malignant neoplasm of respiratory organs (principal); F17.210 Nicotine dependence, cigarettes, uncomplicated
CPT/HCPCS: 71271

== ENCOUNTER 2022-10-25 14:35 | Outpatient (REF) | payer OTHER, MEDICARE, SELFPAY ==
[2022-10-25 14:49] LABS: MANUAL DIFF FLAG NO
[2022-10-25 14:55] LABS: Basophils Absolute Auto 0.1 X10*3/uL (0.0-0.2); Basophils Percent Auto 0.7 % (0-2); Eosinophils Absolute Auto 0.1 X10*3/uL (0.0-0.4); Eosinophils Percent Auto 1.4 % (0-4); Hematocrit 45.9 % (42.0-52.0); Hemoglobin 15.1 g/dl (14.0-18.0); Imm Gran Abs Auto 0.03 X10*3/uL (0.00-0.03); Imm Gran Pct Auto 0.4 % (0.0-0.4); Lymphocytes Absolute Auto 2.8 X10*3/uL (1.2-4.9); Lymphocytes Percent Auto 33.3 % (20-40); Mean Corpuscular HGB Conc 32.9 g/dl (31.0-36.0); Mean Corpuscular Hemoglobin 29.2 pg (27.0-33.0); Mean Corpuscular Volume 88.6 fL (80.0-98.0); Mean Platelet Volume 8.3 fL (9.4-12.4); Monocytes Absolute Auto 0.7 X10*3/uL (0.1-1.2); Monocytes Percent Auto 8.3 % (2-11); Neutrophils Absolute Auto 4.7 x10*3/uL (2.0-8.3); Neutrophils Percent Auto 55.9 % (45-73); Platelet Count 274 X10*3/uL (160-400); Red Blood Count 5.18 X10*6/uL (4.60-5.80); Red Cell Distribution Width 13.5 % (11.0-16.0); White Blood Count 8.5 X10*3/uL (4.8-10.8)
[2022-10-25 14:57] LABS: Venous Blood Gas Refer to POC result
[2022-10-25 15:02] LABS: D Dimer High Sensitivity 153 NG/ML
[2022-10-25 15:03] LABS: VBG Base Excess 3.9 mmol/L; VBG HCO3 30 mmol/L (22-26); VBG pCO2 51 mmHg; VBG pH 7.37 (7.32-7.43); VBG pO2 31 mmHg
[2022-10-25 15:28] LABS: Anion Gap 16 (12-20); Blood Urea Nitrogen 16 mg/dL (9-16); Calcium 9.4 mg/dL (8.4-10.2); Carbon Dioxide 26 mmol/L (22-29); Chloride 104 mmol/L (96-108); Estimated Glomerular Filt Rate > 60; Glucose Random 86 mg/dL (60-115); Potassium 4.7 mmol/L (3.3-5.1); Sodium 141 mmol/L (135-145)
[2022-10-25 15:29] LABS: Troponin-I High Sensitivity < 3.5 ng/L (<3.5-35.0)
[2022-10-25 15:39] LABS: Erythrocyte Sedimentation Rate 9 MM/HR (0-15)
[2022-10-27 03:24] LABS: Immunoglobulin E 146 kU/L (<OR=114)
[2022-10-27 14:23] LABS: Alpha 1 Anti-trypsin 172 mg/dL (83-199)
== END 2022-10-25 14:36 | disposition home or self-care (01) ==
LOC: HO.LAB 14:35
PROVIDERS: PCP Internal Medicine; Visit Provider Hospitalist
DX: R07.81 Pleurodynia (principal); J44.9 Chronic obstructive pulmonary disease, unspecified
CPT/HCPCS: 36415; 80048; 82103; 82785; 82803; 84484; 85025; 85379; 85652

== ENCOUNTER → 2022-10-30 14:14 | Outpatient (BNVA) | payer OTHER, MEDICARE, SELFPAY | PROVIDERS: PCP Internal Medicine; Visit Provider Hospitalist | DX: J44.9 Chronic obstructive pulmonary disease, unspecified (principal); J96.11 Chronic respiratory failure with hypoxia; G47.33 Obstructive sleep apnea (adult) (pediatric); R91.1 Solitary pulmonary nodule; Z79.899 Other long term (current) drug therapy | CPT/HCPCS: 99212 ==

== ENCOUNTER 2023-01-01 13:53 | Outpatient (REF) | payer OTHER, MEDICARE, SELFPAY ==
--- NOTE | 2023-01-01 17:09 | PFT_ITS ---
INDICATION: COPD. SPIROMETRY: FEV1 to FVC of 32% with an FEV1 of 0.92 L, which is 32% predicted and FVC of 2.93 L, which is 75% predicted. No significant response to bronchodilator is noted. Maximum voluntary ventilation 24% of predicted. LUNG VOLUMES: Total lung capacity 96% predicted with residual volume of 132% predicted. DIFFUSION CAPACITY: DLCO 46% predicted. PFTs from 2020. INTERPRETATION: There is an obstructive ventilatory defects consisting of very severe COPD. No significant response to bronchodilators noted. There is a severe decrease in the maximum voluntary ventilation secondary to deconditioning and also worsening dynamic inspiratory capacity. Lung volumes with significant airtrapping due to the COPD and there is moderate to severe diffusion impairment. When compared to 2020, there is a significant decrease in the FVC, a significant decrease in the FEV1, a trend decrease in the total lung capacity, and a trend increase in the diffusion capacity. Clinical correlation is warranted. MD JANET Hanson/MARIAM / [id number]
== END 2023-01-01 13:54 | disposition home or self-care (01) ==
LOC: HO.RESP 13:53
PROVIDERS: PCP Internal Medicine; Visit Provider Hospitalist
DX: J44.9 Chronic obstructive pulmonary disease, unspecified (principal)
CPT/HCPCS: 94060; 94727; 94729

== ENCOUNTER → 2023-02-14 14:10 | Outpatient (BNVA) | payer OTHER, MEDICARE, SELFPAY | PROVIDERS: PCP Internal Medicine; Visit Provider Hospitalist | DX: J44.9 Chronic obstructive pulmonary disease, unspecified (principal) ==

== ENCOUNTER 2023-03-19 14:06 | Emergency (ER) | payer OTHER, MEDICARE, SELFPAY ==
--- NOTE | ~2023-03-19 | CT_ITS ---
EXAMINATION: CT ABDOMEN AND PELVIS WITH CONTRAST CLINICAL INFORMATION: Pain COMPARISON: 04/20/2022 TECHNIQUE: Multidetector volumetric imaging was performed from the superior aspect of the liver through the pubic symphysis following administration of 85 mL Omnipaque 300 intravenous contrast. Sagittal and coronal reformatted images were obtained on the technologist workstation.. This CT examination was performed using dose optimization techniques as appropriate, variously including the following: *Automated exposure control *Adjustment of mA and/or kV according to patient size (this includes techniques or standardized protocols for targeted exams where dose is matched to indication/reason for exam; i.e. extremities or head) *Use of iterative reconstruction technique DLP: 403 mGy-cm FINDINGS: LUNG BASES: Extensive emphysematous changes at the visualized lung bases LIVER, GALLBLADDER, AND BILIARY TREE: The liver is normal in size, shape, and attenuation. No focal hepatic lesion or biliary ductal dilatation is present. Gallbladder is surgically absent. PANCREAS: Unremarkable. SPLEEN: Unremarkable. ADRENAL GLANDS: Unremarkable. KIDNEYS AND URETERS: The kidneys are normal in size, shape, and attenuation. No hydronephrosis, hydroureter, or calculi seen. No perinephric stranding. BLADDER: Unremarkable. GASTROINTESTINAL TRACT: Scattered colonic diverticulosis but no colonic wall thickening or pericolonic inflammatory change to suggest diverticulitis. Visualized appendix grossly unremarkable. Small bowel unremarkable. Small hiatal hernia. ABDOMINAL WALL: No significant hernia is appreciated. LYMPHOVASCULAR STRUCTURES: Extensive vascular calcification within the aorta iliac system. PELVIC VISCERA: Unremarkable. OSSEOUS STRUCTURES: Unremarkable. CT/CT abdomen pelvis w IV con IMPRESSION: Chronic appearing changes as described above. I do not appreciate any acute intra-abdominal process.
--- NOTE | ~2023-03-19 | CT_ITS ---
EXAMINATION: CT HEAD WITHOUT CONTRAST CLINICAL INFORMATION: Vision changes COMPARISON: CT head 01/31/2019 TECHNIQUE: Contiguous axial imaging was performed from the skull base to vertex without intravenous administration of contrast. Coronal and sagittal reformatted images are performed at the CT scanner. [This CT examination was performed using dose optimization techniques as appropriate, variously including the following: *Automated exposure control *Adjustment of mA and/or kV according to patient size (this includes techniques or standardized protocols for targeted exams where dose is matched to indication/reason for exam; i.e. extremities or head) *Use of iterative reconstruction technique] DLP: 742 mGy-cm. FINDINGS: There is no evidence of acute intracranial hemorrhage or territorial infarction. No abnormal mass-effect or midline shift is seen. Cantu to white matter differentiation is well preserved. No extra-axial fluid collections are identified. The ventricles are normal in size. There is no abnormal attenuation within the brain parenchyma. There is no osseous abnormality. The mastoid air cells and visualized portions of the paranasal sinuses are well-aerated. CT/CT head/brain wo IV con IMPRESSION: No acute intracranial pathology.
[2023-03-19 14:18] VITALS: BP 145/87; PULSE 105; RESP 19; TEMP 36.7; O2SAT 97; BMI 25.1
--- NOTE | 2023-03-19 14:18 | ED_ITS ---
HPI - General Adult General Chief complaint: General Medical Stated complaint: Vision Blurred Fatigue Etc Time Seen by Provider: 03/19/23 20:20 Source: patient, RN notes reviewed and old records reviewed Mode of arrival: ambulatory Limitations: no limitations History of Present Illness HPI narrative: 73-year-old male past medical history significant for IBS, COPD, anxiety, hypertension, tardive dyskinesia, coronary artery disease, hyperlipidemia presents for evaluation of multiple complaints. Patient reports about 1 week ago he was having ?a flare of IBS. ? He states he is having significant abdominal pain He was treating with Gas-X and Bentyl He reports that his pain improved about 3 days ago He reports that he had his last bowel movement yesterday and it was not watery. He reports he has been passing gas today but only little bit He also complains of feeling ?not quite dizzy, but like I cannot catch up with my vision. ? He also complains of having ?problems with my ears. ? Denies any headache Patient reports that he has been increasingly weak over the last few days He has a history of vertigo but states that this does not feel similar to his previous episodes of vertigo Denies any trauma to the head or neck Related Data Home Medications Medication Instructions Recorded Confirmed cholecalciferol (vitamin D3) 25 50 mcg PO DAILY 08/28/21 10/16/21 mcg (1,000 unit) tablet (Vitamin D3) lorazepam 1 mg tablet 1 tab PO TID PRN Anxiety 08/28/21 10/16/21 polyethylene glycol 3350 17 17 g PO DAILY 08/28/21 10/16/21 gram/dose oral powder (Miralax) simethicone 80 mg chewable tablet 160 mg PO TIDAC 08/28/21 10/16/21 amlodipine 5 mg tablet 5 mg PO DAILY 10/30/22 nortriptyline 10 mg capsule 10 mg PO BID 10/30/22 Oxygen Home Use 02/14/23 Previous Rx's Medication Instructions Recorded dicyclomine 10 mg capsule 10 mg PO TIDAC PRN gastric 09/14/21 discomfort 30 days #90 caps famotidine 20 mg tablet 10 mg PO BID 30 days #30 tabs 09/14/21 propranolol 10 mg tablet 10 mg PO BID 30 days #60 tabs 09/14/21 blood pressure test kit-medium #1 ea 10/16/21 morphine 15 mg immediate release 15 mg PO Q4-6H PRN pain #8 tabs 04/21/22 tablet omeprazole 20 mg capsule,delayed 20 mg PO DAILY 30 days #30 caps 04/21/22 release ondansetron 4 mg disintegrating 4 mg PO Q6-8H PRN nausea and 04/21/22 tablet vomiting #14 tabs Symbicort 160 mcg-4.5 2 puff PO BID #10.2 ea 09/25/22 mcg/actuation HFA aerosol inhaler (budesonide-formoterol) levalbuterol tartrate 45 2 puff inhalation Q4H PRN for 11/22/22 mcg/actuation aerosol inhaler wheezing #15 ea tiotropium bromide 2.5 2 puff PO DAILY #4 mL 02/25/23 mcg/actuation mist for inhalation (Spiriva Respimat) Allergies Allergy/AdvReac Type Severity Reaction Status Date / Time lamotrigine [From LAMICTAL] Allergy Severe agitation Verified 03/19/23 14:18 and anxiety with titration codeine [CODEINE] Allergy Intermediate INSOMNIA Verified 03/19/23 14:18 Penicillins [PENICILLINS] Allergy Intermediate RASH Verified 03/19/23 14:18 epinephrine [EPINEPHRINE] AdvReac Intermediate Hypertensio Verified 03/19/23 14:18 n escitalopram [From LEXAPRO] AdvReac Intermediate NIGHTMARES Verified 03/19/23 14:18 sertraline [From ZOLOFT] AdvReac Intermediate NIGHTMARES Verified 03/19/23 14:18 sulfamethoxazole AdvReac Intermediate STOMACH Verified 03/19/23 14:18 [From BACTRIM] UPSET Review of Systems Constitutional: Constitutional: Reports as per HPI, Denies chills, Denies fever(s), Reports headache(s), Reports lethargy, Reports malaise and Reports weakness Eyes: Eyes: Reports other visual disturbances ENT: Reports headache(s) Cardiovascular: Cardiovascular: Denies chest pain and Denies dyspnea Respiratory: Respiratory: Denies cough and Denies dyspnea Gastrointestinal: Gastrointestinal: Reports abdominal pain, Reports constipation and Denies vomiting Genitourinary: Genitourinary: Denies difficulty urinating and Denies dysuria Neurologic: Reports headache(s), Denies focal weakness and Reports weakness PMFSH Past Medical History Medical History (Updated 03/19/23 @ 21:00 by Steven Alegria) Abnormal nuclear stress test Anxiety Asthma CAD (coronary artery disease) Chronic respiratory failure COPD (chronic obstructive pulmonary disease) COVID-19 vaccine series completed Generalized anxiety disorder GERD (gastroesophageal reflux disease) History of major depression HLD (hyperlipidemia) Hx of small bowel obstruction IBS (irritable bowel syndrome) Panic disorder Pneumonitis Pulmonary nodule Smoking Tardive dyskinesia Surgical History H/O bilateral inguinal hernia repair Hx of cholecystectomy Hx of colonoscopy Stented coronary artery Family History Family History Father No problems noted. Mother No problems noted. Social History Social History Household Members: Spouse and Children Household Members Other:: Emeka Housing: House Are you a primary manager intensive care to a significant other at home: No Do you presently have visiting nurse or other home services: No Unable to assess alcohol history related to: Unknown Alcohol intake: never Patient Tobacco Use Status: Former Tobacco user Quit Date: 3 yrs ago Tobacco use type: Cigarette Years Smoked: 35 Smoked in Last 30 Days: No e-Cigarette/Vaping Use: Never Used Second Hand Smoke Exposure: No Use of substances other than those prescribed or required for medical reasons: No Advance Directives: No Advance Directives Information Provided: No service: No Sexual orientation: Lesbian/Triana/Homosexual Physical Exam ED Vital Signs: Vital Signs - 24 hr 03/19/23 14:18 03/19/23 17:41 03/19/23 21:19 Temperature 98.1 F 97.6 F 98.5 F Pulse Rate 105 H 97 97 Respiratory Rate 19 18 17 Blood Pressure 145/87 H 126/83 144/105 H Pulse Oximetry 97 97 96 Oxygen Delivery Method Room Air Room Air Room Air BMI result Body Mass Index 25.1 Const General: healthy appearing, comfortable, no acute distress, alert and awake Nutritional Appearance: well nourished Orientation/consciousness: patient oriented x3 HENMT Head: Yes normocephalic and Yes atraumatic Eyes Eyelids: Yes eyelids normal Conjunctivae: conjunctivae normal Sclerae: sclerae normal Corneas: corneas normal Pupils: Equal, round and reactive pupils present EOM: EOMs intact bilaterally Neck Neck: Yes full ROM Resp Effort & Inspection: normal respiratory effort, able to speak in complete sentences and not labored GI Inspection: No distended Palpation (GI): Soft to palpation, not firm, Tenderness to palpation present (GI) (Diffusely tender without guarding.), no guarding and not rigid Auscultation: normoactive bowel sounds Skin General skin exam: no rashes or lesions noted and elasticity normal Neuro General: patient oriented x3 Cranial nerves: Yes Equal, round and reactive pupils present and Yes Bilaterally intact EOM present Cognition (Neuro): normal cognition Extrem Other: Moving all extremities well without any obvious deformities Course Course Course Narrative: This is an RME: Additional HPI, ROS, PE not included below will be deferred to p rimary provider. Patient is a 73-year-old male with history of CAD, COPD, HLD, PREMA, tardive dyskinesia, IBS, MDD, and panic disorder presenting to the emergency department with fatigue, confusion, difficulty with word finding, constant blurred vision, dry mouth x 3 days. Denies headache, denies numbness or tingling, denies focal weakness. Denies fever. History of anticholinergic toxicity and states symptoms feel similar. Denies any pain. Plan: Labs, EKG, CT, UA Reevaluation(s) Reevaluation #1: Patient workup largely unremarkable. He has no objective findings on exam. The patient reports continued fatigue. Will have the patient follow-up with his primary doctor Time: 23:09 Medications Administered Discontinued Medications Generic Name Dose Route Start Last Admin Trade Name Marcoq PRN Reason Stop Dose Admin Sodium Chloride 1,000 mls @ 999 mls/hr 03/19/23 21:00 03/19/23 21:40 Ns IV 03/19/23 22:00 999 mls/hr .Q1H1M ÁLVARO Administration Iohexol 85 ml 03/19/23 22:08 03/19/23 22:09 Iohexol 350 Mg/Ml 100 Ml Infus..Btl IV 03/19/23 22:09 85 ml ONCE ONE Administration Meclizine HCl 50 mg 03/19/23 20:49 03/19/23 21:42 Meclizine Hcl 25 Mg Tablet PO 03/19/23 20:50 50 mg ONCE ONE Administration Medical Decision Making Medical Decision Making [facility] Narrative: 73-year-old male presents for evaluation of multiple complaints. He complains of dizziness a describes as ?like I can not keep up with my vision and it takes a second for my eyes to adjust after I turn my head. ? He complains of abdominal pain, malaise and weakness. He had a workup ordered and triage are consisted of labs, UA, CT scan of brain. There are no significant findings noted. The patient's exam is significant for abdominal tenderness without guarding. No other significant findings noted. Will get a CT scan of his abdomen pelvis given his increased abdominal pain. He has a history of small-bowel obstruction per his report treated with nasogastric tube. Will treat as weakness with IV fluids and his dizziness with meclizine and re- evaluate. Differential Diagnosis Dehydration Orthostasis Vertigo Intracranial mass Small bowel obstruction Ileus IBS Lab Data [facility] Lab Attestation statement: I reviewed the patient's lab results. (Patient's labs are within normal limits without significant abnormalities. Urine does have trace ketones with a specific gravity is with normal limits.) 03/19/23 14:40 03/19/23 14:40 Labs: Lab Results 03/19/23 03/19/23 03/19/23 Range/Units 14:40 14:40 14:40 WBC 7.3 (4.8-10.8) X10*3/uL RBC 5.40 (4.60-5.80) X10*6/uL Hgb 16.0 (14.0-18.0) g/dl Hct 48.4 (42.0-52.0) % MCV 89.6 (80.0-98.0) fL MCH 29.6 (27.0-33.0) pg MCHC 33.1 (31.0-36.0) g/dl RDW 13.2 (11.0-16.0) % Plt Count 255 (160-400) X10*3/uL MPV 8.5 L (9.4-12.4) fL Immature Gran % (Auto) 0.3 (0.0-0.4) % Neut % (Auto) 63.6 (45-73) % Lymph % (Auto) 26.3 (20-40) % Garden % (Auto) 7.4 (2-11) % Eos % (Auto) 1.9 (0-4) % Baso % (Auto) 0.5 (0-2) % Lymph # (Auto) 1.9 (1.2-4.9) X10*3/uL Garden # (Auto) 0.5 (0.1-1.2) X10*3/uL Eos # (Auto) 0.1 (0.0-0.4) X10*3/uL Baso # (Auto) 0.0 (0.0-0.2) X10*3/uL Abs Immat Gran (auto) 0.02 (0.00-0.03) X10*3/uL Absolute Neuts (auto) 4.6 (2.0-8.3) x10*3/uL Absolute Nucleated RBC 0.000 (0.0-0.012) X10*3/uL Nucleated RBC % (auto) 0.0 (0.0-0.2) /100WBC PT 10.9 (10.0-13.1) SEC INR 1.0 (0.9-1.1) Sodium 139 (135-145) mmol/L Potassium 4.4 (3.3-5.1) mmol/L Chloride 105 (96-108) mmol/L Carbon Dioxide 26 (22-29) mmol/L Anion Gap 12 (12-20) BUN 14 (9-16) mg/dL Creatinine 0.83 (0.5-1.4) mg/dL Estim Creat Clear Calc 76.3 Estimated GFR > 60 Random Glucose 89 (60-115) mg/dL Calcium 10.0 D (8.4-10.2) mg/dL Total Bilirubin 0.4 (0.0-1.0) mg/dL AST 17 (5-37) U/L ALT 14 (0-40) U/L Alkaline Phosphatase 64 (39-117) U/L Troponin I High Sens (<3.5-35.0) ng/L Total Protein 7.4 (6.5-8.0) g/dL Albumin 4.4 (3.5-5.0) g/dL Urine Color Urine Appearance Urine pH (5.0-9.0) Ur Specific [place] (1.005-1.025) Urine Protein (Neg-Trace) mg/dL Urine Glucose (UA) (Negative) mg/dL Urine Ketones (Negative) mg/dL Urine Blood (Negative) Urine Nitrite (Negative) Ur Leukocyte Esterase (Negative) 03/19/23 03/19/23 Range/Units 14:40 17:30 WBC (4.8-10.8) X10*3/uL RBC (4.60-5.80) X10*6/uL Hgb (14.0-18.0) g/dl Hct (42.0-52.0) % MCV (80.0-98.0) fL MCH (27.0-33.0) pg MCHC (31.0-36.0) g/dl RDW (11.0-16.0) % Plt Count (160-400) X10*3/uL MPV (9.4-12.4) fL Immature Gran % (Auto) (0.0-0.4) % Neut % (Auto) (45-73) % Lymph % (Auto) (20-40) % Garden % (Auto) (2-11) % Eos % (Auto) (0-4) % Baso % (Auto) (0-2) % Lymph # (Auto) (1.2-4.9) X10*3/uL Garden # (Auto) (0.1-1.2) X10*3/uL Eos # (Auto) (0.0-0.4) X10*3/uL Baso # (Auto) (0.0-0.2) X10*3/uL Abs Immat Gran (auto) (0.00-0.03) X10*3/uL Absolute Neuts (auto) (2.0-8.3) x10*3/uL Absolute Nucleated RBC (0.0-0.012) X10*3/uL Nucleated RBC % (auto) (0.0-0.2) /100WBC PT (10.0-13.1) SEC INR (0.9-1.1) Sodium (135-145) mmol/L Potassium (3.3-5.1) mmol/L Chloride (96-108) mmol/L Carbon Dioxide (22-29) mmol/L Anion Gap (12-20) BUN (9-16) mg/dL Creatinine (0.5-1.4) mg/dL Estim Creat Clear Calc Estimated GFR Random Glucose (60-115) mg/dL Calcium (8.4-10.2) mg/dL Total Bilirubin (0.0-1.0) mg/dL AST (5-37) U/L ALT (0-40) U/L Alkaline Phosphatase (39-117) U/L Troponin I High Sens < 2.7 (<3.5-35.0) ng/L Total Protein (6.5-8.0) g/dL Albumin (3.5-5.0) g/dL Urine Color Yellow Urine Appearance Clear Urine pH 5.5 (5.0-9.0) Ur Specific [place] 1.010 (1.005-1.025) Urine Protein Negative (Neg-Trace) mg/dL Urine Glucose (UA) Negative (Negative) mg/dL Urine Ketones Trace (Negative) mg/dL Urine Blood Negative (Negative) Urine Nitrite Negative (Negative) Ur Leukocyte Esterase Negative (Negative) Discharge Plan Discharge Clinical Impression: Weakness Patient Disposition: Home, Self-Care Instructions: Weakness (ED) Additional Instructions: Your workup in the emergency department today was reassuring. Is include your blood work, CT scan of your head, CT scan of the abdomen pelvis, urine sample You may have a virus causing continue weakness or it may be left over from your recent IBS flare Follow-up with your primary doctor Prescriptions: No Action budesonide-formoterol [Symbicort] 160-4.5 mcg/actuation HFA aerosol inhaler 2 puff PO BID Qty: 10.2 11RF levalbuterol tartrate 45 mcg/actuation HFA aerosol inhaler 2 puff inhalation Q4H PRN (Reason: for wheezing) Qty: 15 11RF Spiriva Respimat 2.5 mcg/actuation mist 2 puff PO DAILY Qty: 4 11RF lorazepam 1 mg tablet 1 tab PO TID PRN (Reason: Anxiety) cholecalciferol (vitamin D3) [Vitamin D3] 25 mcg (1,000 unit) Tablet 50 mcg PO DAILY simethicone 80 mg Tablet,Chewable 160 mg PO TIDAC polyethylene glycol 3350 [Miralax] 17 gram/dose Powder 17 g PO DAILY propranolol 10 mg Tablet 10 mg PO BID 30 Days Qty: 60 0RF Protocol: Hold for SBP/HR < HOLD for SBP < : 90 HOLD for HR < : 60 dicyclomine 10 mg Capsule 10 mg PO TIDAC PRN (Reason: gastric discomfort) 30 Days Qty: 90 0RF famotidine 20 mg Tablet 10 mg PO BID 30 Days Qty: 30 0RF morphine 15 mg tablet 15 mg PO Q4-6H PRN (Reason: pain) Qty: 8 0RF Rx Instructions: The patient may ask for partial fill; Partial Fill upon patient request. ondansetron 4 mg tablet,disintegrating 4 mg PO Q6-8H PRN (Reason: nausea and vomiting) Qty: 14 0RF omeprazole 20 mg capsule,delayed release(DR/EC) 20 mg PO DAILY 30 Days Qty: 30 0RF (DME) blood pressure test kit-medium Kit See Rx Instructions .Route Qty: 1 0RF Rx Instructions: As directed nortriptyline 10 mg capsule 10 mg PO BID amlodipine 5 mg tablet 5 mg PO DAILY (DME) Oxygen Home Use Kit See Rx Instructions .ROUTE Rx Instructions: As directed
--- NOTE | 2023-03-19 14:22 | ECG_ITS ---
Test Reason : weakness Blood Pressure : / mmHG Vent. Rate : 101 BPM Atrial Rate : 101 BPM P-R Int : 148 ms QRS Dur : 082 ms QT Int : 334 ms P-R-T Axes : 082 043 060 degrees QTc Int : 433 ms Poor data quality, interpretation may be adversely affected Sinus tachycardia Otherwise normal ECG When compared with ECG of 28-AUG-2021 12:41, No significant change was found Referred By: Kristie Hope Electronically Signed By:Siddhartha Tucker
[2023-03-19 14:48] LABS: MANUAL DIFF FLAG NO
[2023-03-19 14:49] LABS: Basophils Percent Auto 0.5 % (0-2); Eosinophils Absolute Auto 0.1 X10*3/uL (0.0-0.4); Eosinophils Percent Auto 1.9 % (0-4); Hematocrit 48.4 % (42.0-52.0); Imm Gran Abs Auto 0.02 X10*3/uL (0.00-0.03); Imm Gran Pct Auto 0.3 % (0.0-0.4); Lymphocytes Absolute Auto 1.9 X10*3/uL (1.2-4.9); Lymphocytes Percent Auto 26.3 % (20-40); Mean Corpuscular HGB Conc 33.1 g/dl (31.0-36.0); Mean Corpuscular Hemoglobin 29.6 pg (27.0-33.0); Mean Corpuscular Volume 89.6 fL (80.0-98.0); Mean Platelet Volume 8.5 fL (9.4-12.4); Monocytes Absolute Auto 0.5 X10*3/uL (0.1-1.2); Monocytes Percent Auto 7.4 % (2-11); Neutrophils Absolute Auto 4.6 x10*3/uL (2.0-8.3); Neutrophils Percent Auto 63.6 % (45-73); Platelet Count 255 X10*3/uL (160-400); Red Cell Distribution Width 13.2 % (11.0-16.0); White Blood Count 7.3 X10*3/uL (4.8-10.8)
[2023-03-19 14:59] LABS: Prothrombin Time 10.9 SEC (10.0-13.1)
[2023-03-19 15:10] LABS: Alanine Aminotransferase 14 U/L (0-40); Albumin Level 4.4 g/dL (3.5-5.0); Alkaline Phosphatase 64 U/L (39-117); Anion Gap 12 (12-20); Aspartate Amino Transferase 17 U/L (5-37); Bilirubin Total 0.4 mg/dL (0.0-1.0); Blood Urea Nitrogen 14 mg/dL (9-16); Carbon Dioxide 26 mmol/L (22-29); Chloride 105 mmol/L (96-108); Creatinine Clr Calc Pharmacy 76.3; Estimated Glomerular Filt Rate > 60; Glucose Random 89 mg/dL (60-115); Potassium 4.4 mmol/L (3.3-5.1); Sodium 139 mmol/L (135-145); Total Protein 7.4 g/dL (6.5-8.0)
[2023-03-19 15:18] LABS: Troponin-I High Sensitivity < 2.7 ng/L (<3.5-35.0)
--- NOTE | 2023-03-19 17:30 | MHC.EDTECH ---
PATIENT URINE SAMPLE [id number] AND SENT TO LAB .
[2023-03-19 17:41] VITALS: BP 126/83; PULSE 97; RESP 18; TEMP 36.4; O2SAT 97
[2023-03-19 17:46] LABS: Appearance Urine Clear; Color Urine Yellow; Glucose Urine UA Negative (Negative); Leukocyte Esterase Urine Negative (Negative); Nitrite Urine Negative (Negative); PH 5.5 (5.0-9.0); Urine Blood Negative (Negative); Urine Ketones Trace mg/dL (Negative); Urine Protein Negative (Neg-Trace)
[2023-03-19 21:19] VITALS: BP 144/105; PULSE 97; RESP 17; TEMP 36.9; O2SAT 96
[2023-03-19] MEDS: 0.9 % Sodium Chloride 1,000 ML 999 ML IV (21:40)
[2023-03-19] MEDS: Meclizine HCl 25 MG TABLET 50 MG PO (21:42)
--- NOTE | 2023-03-19 21:55 | PC.NURSE ---
patient in bed with eyes open patient stated he is not in pain at this time patent vitals are stable patient vitals are stable at this time patient will continue to be monitored for safety patient received all medications with no issues at this issue
[2023-03-19] MEDS: iohexoL 350 MG/ML 100 ML INFUS..BTL 85 ML IV (22:09)
--- NOTE | 2023-03-19 23:29 | PC.NURSE ---
patient in the process of being discharged
[2023-03-19 23:49] LABS: Thyroid Stimulating Hormone 1.15 uIU/mL (0.32-4.0)
== END 2023-03-19 23:31 | disposition home or self-care (01) ==
PROVIDERS: Physician Assistant; Registered Nurse Emergency; Emergency Provider Student in an Organized Health Care Education/Training Program
DX: H53.8 Other visual disturbances (principal); R53.83 Other fatigue; R00.0 Tachycardia, unspecified; R42 Dizziness and giddiness; R51.9 Headache, unspecified; R10.32 Left lower quadrant pain; M54.2 Cervicalgia; Z79.899 Other long term (current) drug therapy
CPT/HCPCS: 36415; 70450; 74177; 80053; 81003; 84443; 84484; 85025; 85610; 93005; 96360; 96361; 99284; 99285; Q9967

== ENCOUNTER 2023-06-28 14:01 | Outpatient (AMB) | payer OTHER, MEDICARE, SELFPAY ==
--- NOTE | 2023-06-28 14:06 | MHC.OFFVIS ---
Intake Vital Signs 06/28/23 14:08 Height 5 ft 7 in Weight 160 lb BMI 25.1 Pulse 92 Pulse Source Pulse Oximeter Pulse Oximetry (%) 94 Oxygen Delivery Method Room Air Intake Visit Reasons: COPD Atv Mechanic Required: No Allergies lamotrigine [From LAMICTAL] Allergy (Severe, Verified 06/28/23 14:09) agitation and anxiety with titration codeine [CODEINE] Allergy (Intermediate, Verified 06/28/23 14:09) INSOMNIA Penicillins [PENICILLINS] Allergy (Intermediate, Verified 06/28/23 14:09) RASH epinephrine [EPINEPHRINE] Adverse Reaction (Intermediate, Verified 06/28/23 14:09) Hypertension escitalopram [From LEXAPRO] Adverse Reaction (Intermediate, Verified 06/28/23 14:09) NIGHTMARES sertraline [From ZOLOFT] Adverse Reaction (Intermediate, Verified 06/28/23 14:09) NIGHTMARES sulfamethoxazole [From BACTRIM] Adverse Reaction (Intermediate, Verified 06/28/23 14:09) STOMACH UPSET HPI HPI Comments History of Present Illness Details The patient is a 73-year-old gentleman known COPD and also depression. I did have the pleasure meeting him while he was in these [facility] trachea trach unit. He was following up with [place] customer service officer. He decided to transfer his care over to [facility]. Overall he still continues to have significant shortness of breath. His sister see with him because she is concerned. His symptoms about moderate severity. He also complains of productive cough. He has been using Symbicort. He does have increased but is unlikely because of the powder gag exam. Therefore he stopped using it. He also has a rescue inhaler that he uses on a daily basis. He did have pulmonary function studies at some point. Here in the office we did taken for 6 minutes walk test the patient did qualify for oxygen. The patient is interested in pulmonary rehabilitation and therefore will looking to repeating his pulmonary function studies to get him approved for at. In the meantime he is still smoking. He has a greater than 30 pack-year history of smoking. Therefore he will be a great candidate for the lung cancer screening program. He did have his pulmonary function studies and also underwent a CT scan of the chest low-dose protocol demonstrated no significant changes except for extensive emphysema and small pulmonary nodules. He did have a CT scan of the chest to the lung cancer screening program. Demonstrated emphysema along with 1 mm pulmonary nodule. He have another CT scan in a year's time in October of 2020. 08/02/2022 the patient is here for pulmonary follow-up visit. Overall the patient appears to be doing well. He is feeling better. He is using his oxygen with good effect. also has been using the Symbicort inhaler. The patient feels like he needs to go back on the Spiriva. He still having some shortness of breath with activity moderate severity. Also complains that the chest tightness. This has been ongoing for him. He stop the Spiriva due to the fact that he developed anticholinergic syndrome. Currently he is not on any significant amount of anticholinergic medications. Therefore will have him start the Spiriva Respimat 1 inhalation every 48 hours. He will continue this does in after 3-4 weeks if he continues to do well he can increase it to 1 puff daily. That will be still about half the dose. Will monitor for any symptoms consistent with anticholinergic activity. Continues uses oxygen supplementation. He does have the portable oxygen concentrator that works very well for him. 08/29/2023 the patient is here for a pulmonary follow-up visit. Overall the patient is better he has had his medications adjusted. He was having significant anticholinergic effects resulting adverse symptoms. Clinically the patient is doing better. Continues on Symbicort. He is looking to try to increase the Spiriva to 2 puffs daily lung scan tolerated without significant anti cholinergic patient also been participating pulmonary rehabilitation he is continuing to use the oxygen this has been beneficial did undergo blood work including a venous gas demonstrating normal acid-base status does have slight elevation in pCO2 1 mmHg. This is consistent with chronic hypercarbic respiratory failure. Although it appears to be mild at this. And the patient clinically is doing will consider repeating future to see if he is a candidate noninvasive ventilator. The other blood work were all reassuring. Plan to follow-up 4-6 months with PFTs. 06/28/2023 the patient is here for a pulmonary follow-up visit Overall the patient has been doing well. Continues on the Symbicort and Spiriva. He is wondering if there is a better inhaler out there. Will go ahead and start him on breztri. The patient tried and failed Trelegy because of the powder. I am hopeful that he can tolerate the inhaler better. We did review his PFTs from December 2022 demonstrating very severe COPD. The patient also had a CT scan of the chest back in August 2022 as part of the lung cancer screening. He will should have a repeat 1 in 08/2023. the patient is to go back to pulmonary rehabilitation at this time. I did provide him a letter for him to be able to do so. [facility] Medical History (Updated 07/01/23 @ 20:34 by Bam Torres MD) Pulmonary nodule COVID-19 vaccine series completed Hx of small bowel obstruction Asthma Panic disorder History of major depression Anxiety IBS (irritable bowel syndrome) GERD (gastroesophageal reflux disease) Tardive dyskinesia Generalized anxiety disorder Pneumonitis Chronic respiratory failure COPD (chronic obstructive pulmonary disease) Smoking HLD (hyperlipidemia) CAD (coronary artery disease) Abnormal nuclear stress test Surgical History Hx of colonoscopy H/O bilateral inguinal hernia repair Hx of cholecystectomy Stented coronary artery Family History Father No problems noted. Mother No problems noted. Social History Household Members: Spouse and Children Household Members Other:: Eme[place] Housing: House Are you a primary client care manager to a significant other at home: No Do you presently have visiting nurse or other home services: No Unable to assess alcohol history related to: Unknown Alcohol intake: never Patient Tobacco Use Status: Former Tobacco user Quit Date: 3 yrs ago Tobacco use type: Cigarette Years Smoked: 35 e-Cigarette/Vaping Use: Never Used Second Hand Smoke Exposure: No service: No Sexual orientation: Lesbian/Triana/Homosexual Review of Systems Const Denies daytime sleepiness, Reports difficulty sleeping and Denies night sweats ENT Denies change in voice, Denies mouth pain and Reports nasal congestion Card Denies chest pain, Denies dyspnea and Reports dyspnea on exertion Resp Reports cough, Denies pain on inspiration, Denies pain with cough, Denies dyspnea and Reports dyspnea on exertion GI Denies abdominal pain Musc Denies no additional complaints and Reports abnormal gait Neuro Reports abnormal gait Psych Reports depression, Denies homicidal ideation and Denies suicidal ideation Ross/Lymph Denies easy bleeding and Denies lymphadenopathy Physical Exam Vital Signs: Last Vital Signs Pulse 92 06/28/23 14:08 Pulse Ox 94 06/28/23 14:08 Oxygen Delivery Method Room Air 06/28/23 14:08 BMI result Body Mass Index 25.1 Const General: alert Nutritional Appearance: thin Neck Neck: Yes normal visual inspection, Yes full ROM and Yes no lymphadenopathy Chest Chest palpation & inspection: normal inspection of the chest, no localized rib tenderness and no tenderness Resp Effort & Inspection: normal respiratory effort Auscultation: no crackles, no rales, no rhonchi, no wheezes and diminished lung sounds Cardio Rate: regular rate Rhythm: regular rhythm Heart sounds: S1 normal heart sound present and S2 normal heart sound present GI Palpation (GI): Soft to palpation and nontender Auscultation: normal bowel sounds Skin General skin exam: rashes and/or lesions noted Assessment & Plan Assessment & Plan (1) COPD (chronic obstructive pulmonary disease): Code(s): J44.9 - Chronic obstructive pulmonary disease, unspecified Qualifiers: COPD type: emphysema Emphysema type: centrilobular Qualified Code(s): J43.2 - Centrilobular emphysema (2) PREMA (obstructive sleep apnea): Code(s): G47.33 - Obstructive sleep apnea (adult) (pediatric) (3) Chronic respiratory failure: Comment: The significant emphysema, chronic stable COPD Code(s): J96.10 - Chronic respiratory failure, unspecified whether with hypoxia or hypercapnia Qualifiers: Respiratory failure complication: hypoxia Qualified Code(s): J96.11 - Chronic respiratory failure with hypoxia (4) Pulmonary nodule: Code(s): R91.1 - Solitary pulmonary nodule Plan stop Symbicort 160/4.52 puffs twice a day. stop Spiriva 2 inhalation q48hrs start Breztri continue oxygen supplementation during the daytime restart pulmonary rehabilitation. continue PAP therapy, will request VBG during the next visit LDCT program follow-up in 4-6 months Medications: New aoxnyeedhd-jtcexmyf-ndnyjukqpt 160-9-4.8 mcg/actuation (Breztri Aerosphere) 2 inhalations inhalation BID 10.7 grams 11RF Coding Level of Care Code Est Pt Level 4 (41788) Diagnoses Centrilobular emphysema J43.2 COPD type: emphysema Emphysema type: centrilobular PREMA (obstructive sleep apnea) G47.33 Chronic respiratory failure with hypoxia J96.11 Respiratory failure complication: hypoxia Pulmonary nodule R91.1 Time Spent (min) 16
[2023-06-28 14:08] VITALS: PULSE 92; O2SAT 94; BMI 25.1
== END 2023-06-28 14:28 | disposition home or self-care (01) ==
PROVIDERS: Visit Provider Hospitalist
DX: J43.2 Centrilobular emphysema (principal); G47.33 Obstructive sleep apnea (adult) (pediatric); J96.11 Chronic respiratory failure with hypoxia; R91.1 Solitary pulmonary nodule
CPT/HCPCS: 99214

== ENCOUNTER → 2023-06-28 14:01 | Outpatient (BNVA) | payer OTHER, MEDICARE, SELFPAY | PROVIDERS: Visit Provider Hospitalist | DX: J44.9 Chronic obstructive pulmonary disease, unspecified (principal) ==

== ENCOUNTER 2024-01-13 13:58 | Outpatient (AMB) | payer OTHER, MEDICARE, SELFPAY ==
[2024-01-13 14:01] VITALS: PULSE 92; O2SAT 96; BMI 25.7
--- NOTE | 2024-01-13 14:01 | MHC.OFFVIS ---
Vital Signs 01/13/24 14:01 Height 5 ft 7 in Weight 164 lb BMI 25.7 Pulse 92 Pulse Source Pulse Oximeter Pulse Oximetry (%) 96 Oxygen Delivery Method Room Air Intake Visit Reasons: copd:6 month f/u Web Production Artist Required: No Allergies lamotrigine [From LAMICTAL] Allergy (Severe, Verified 01/13/24 14:02) agitation and anxiety with titration codeine [CODEINE] Allergy (Intermediate, Verified 01/13/24 14:02) INSOMNIA Penicillins [PENICILLINS] Allergy (Intermediate, Verified 01/13/24 14:02) RASH epinephrine [EPINEPHRINE] Adverse Reaction (Intermediate, Verified 01/13/24 14:02) Hypertension escitalopram [From LEXAPRO] Adverse Reaction (Intermediate, Verified 01/13/24 14:02) NIGHTMARES sertraline [From ZOLOFT] Adverse Reaction (Intermediate, Verified 01/13/24 14:02) NIGHTMARES sulfamethoxazole [From BACTRIM] Adverse Reaction (Intermediate, Verified 01/13/24 14:02) STOMACH UPSET HPI Comments Details: The patient is a 73-year-old gentleman known COPD and also depression. I did have the pleasure meeting him while he was in these [facility] trachea trach unit. He was following up with [place] coiled tubing operator. He decided to transfer his care over to [facility]. Overall he still continues to have significant shortness of breath. His sister see with him because she is concerned. His symptoms about moderate severity. He also complains of productive cough. He has been using Symbicort. He does have increased but is unlikely because of the powder gag exam. Therefore he stopped using it. He also has a rescue inhaler that he uses on a daily basis. He did have pulmonary function studies at some point. Here in the office we did taken for 6 minutes walk test the patient did qualify for oxygen. The patient is interested in pulmonary rehabilitation and therefore will looking to repeating his pulmonary function studies to get him approved for at. In the meantime he is still smoking. He has a greater than 30 pack-year history of smoking. Therefore he will be a great candidate for the lung cancer screening program. He did have his pulmonary function studies and also underwent a CT scan of the chest low-dose protocol demonstrated no significant changes except for extensive emphysema and small pulmonary nodules. He did have a CT scan of the chest to the lung cancer screening program. Demonstrated emphysema along with 1 mm pulmonary nodule. He have another CT scan in a year's time in October of 2020. 08/02/2022 the patient is here for pulmonary follow-up visit. Overall the patient appears to be doing well. He is feeling better. He is using his oxygen with good effect. also has been using the Symbicort inhaler. The patient feels like he needs to go back on the Spiriva. He still having some shortness of breath with activity moderate severity. Also complains that the chest tightness. This has been ongoing for him. He stop the Spiriva due to the fact that he developed anticholinergic syndrome. Currently he is not on any significant amount of anticholinergic medications. Therefore will have him start the Spiriva Respimat 1 inhalation every 48 hours. He will continue this does in after 3-4 weeks if he continues to do well he can increase it to 1 puff daily. That will be still about half the dose. Will monitor for any symptoms consistent with anticholinergic activity. Continues uses oxygen supplementation. He does have the portable oxygen concentrator that works very well for him. 08/29/2023 the patient is here for a pulmonary follow-up visit. Overall the patient is better he has had his medications adjusted. He was having significant anticholinergic effects resulting adverse symptoms. Clinically the patient is doing better. Continues on Symbicort. He is looking to try to increase the Spiriva to 2 puffs daily lung scan tolerated without significant anti cholinergic patient also been participating pulmonary rehabilitation he is continuing to use the oxygen this has been beneficial did undergo blood work including a venous gas demonstrating normal acid-base status does have slight elevation in pCO2 1 mmHg. This is consistent with chronic hypercarbic respiratory failure. Although it appears to be mild at this. And the patient clinically is doing will consider repeating future to see if he is a candidate noninvasive ventilator. The other blood work were all reassuring. Plan to follow-up 4-6 months with PFTs. 06/28/2023 the patient is here for a pulmonary follow-up visit Overall the patient has been doing well. Continues on the Symbicort and Spiriva. He is wondering if there is a better inhaler out there. Will go ahead and start him on breztri. The patient tried and failed Trelegy because of the powder. I am hopeful that he can tolerate the inhaler better. We did review his PFTs from December 2022 demonstrating very severe COPD. The patient also had a CT scan of the chest back in August 2022 as part of the lung cancer screening. He will should have a repeat 1 in 08/2023. the patient is to go back to pulmonary rehabilitation at this time. I did provide him a letter for him to be able to do so. 01/13/2024 the patient is here for a pulmonary follow-up visit. The patient has been having some difficulty with his inhalers. Initially he was on Symbicort Spiriva that were working well. Then the Symbicort was not available and he was placed on Breztri, but, that not work for him. Therefore he was switched over to Dulera and Spiriva. This appears to be helpful but seems like the Dulera back order and he can not get enough medication. And is struggling with that. The patient is also concerned about the inhaled cortical steroids. He does get tearful at times he does have an issue with mood disorder. He is wondering there is a way that the steroids can be decreased or stopped. I did encourage him to continue the steroid although will switch him to a inhaled steroid monotherapy inhaler and therefore the dose could be adjusted accordingly. In addition to that he is responded well to the Respimat device and therefore will switch him over to Stiolto. He has been using the oxygen with good effect. The oxygen concentrator has been affecting beneficial he continues participating in pulmonary rehabilitation at this time. [facility] Medical History (Updated 07/01/23 @ 20:34 by Bam Torres MD) Pulmonary nodule COVID-19 vaccine series completed Hx of small bowel obstruction Asthma Panic disorder History of major depression Anxiety IBS (irritable bowel syndrome) GERD (gastroesophageal reflux disease) Tardive dyskinesia Generalized anxiety disorder Pneumonitis Chronic respiratory failure COPD (chronic obstructive pulmonary disease) Smoking HLD (hyperlipidemia) CAD (coronary artery disease) Abnormal nuclear stress test Surgical History Hx of colonoscopy H/O bilateral inguinal hernia repair Hx of cholecystectomy Stented coronary artery Family History Father No problems noted. Mother No problems noted. Social History Household Members: Spouse and Children Household Members Other:: E[place] Housing: House Are you a primary residential caregiver to a significant other at home: No Do you presently have visiting nurse or other home services: No Unable to assess alcohol history related to: Unknown Alcohol intake: never Comment: patient stable on ambulation Patient Tobacco Use Status: Former Tobacco user Quit Date: 3 yrs ago Tobacco use type: Cigarette Years Smoked: 35 e-Cigarette/Vaping Use: Never Used Second Hand Smoke Exposure: No service: No Sexual orientation: Lesbian/Triana/Homosexual Review of Systems Const Denies daytime sleepiness, Reports difficulty sleeping and Denies night sweats ENT Denies change in voice, Denies mouth pain and Reports nasal congestion Card Denies chest pain, Denies dyspnea and Reports dyspnea on exertion Resp Reports cough, Denies pain on inspiration, Denies pain with cough, Denies dyspnea and Reports dyspnea on exertion GI Denies abdominal pain Musc Denies no additional complaints and Reports abnormal gait Neuro Reports abnormal gait Psych Reports depression, Denies homicidal ideation and Denies suicidal ideation Ross/Lymph Denies easy bleeding and Denies lymphadenopathy Physical Exam Vital Signs: Last Vital Signs Pulse 92 01/13/24 14:01 Pulse Ox 96 01/13/24 14:01 Oxygen Delivery Method Room Air 01/13/24 14:01 BMI result Body Mass Index 25.7 Const General: alert Nutritional Appearance: thin Neck Neck: Yes normal visual inspection, Yes full ROM and Yes no lymphadenopathy Chest Chest palpation & inspection: normal inspection of the chest, no localized rib tenderness and no tenderness Resp Effort & Inspection: normal respiratory effort Auscultation: no crackles, no rales, no rhonchi, no wheezes and diminished lung sounds Cardio Rate: regular rate Rhythm: regular rhythm Heart sounds: S1 normal heart sound present and S2 normal heart sound present GI Palpation (GI): Soft to palpation and nontender Auscultation: normal bowel sounds Skin General skin exam: rashes and/or lesions noted Assessment & Plan Assessment & Plan (1) COPD (chronic obstructive pulmonary disease): Code(s): J44.9 - Chronic obstructive pulmonary disease, unspecified Category: Medical Qualifiers: COPD type: emphysema Emphysema type: centrilobular Qualified Code(s): J43.2 - Centrilobular emphysema (2) PREMA (obstructive sleep apnea): Code(s): G47.33 - Obstructive sleep apnea (adult) (pediatric) Category: Medical (3) Chronic respiratory failure: Comment: The significant emphysema, chronic stable COPD Code(s): J96.10 - Chronic respiratory failure, unspecified whether with hypoxia or hypercapnia Category: Medical Qualifiers: Respiratory failure complication: hypoxia Qualified Code(s): J96.11 - Chronic respiratory failure with hypoxia (4) Pulmonary nodule: Code(s): R91.1 - Solitary pulmonary nodule Category: Medical Plan stop Symbicort 160/4.52 puffs twice a day. stop Spiriva 2 inhalation q48hrs start Stiolto Start Asmanex continue oxygen supplementation during the daytime restart pulmonary rehabilitation. continue PAP therapy, will request VBG during the next visit LDCT program follow-up in 3-4 months Medications: New mometasone 200 mcg/actuation (Asmanex HFA) 2 puffs inhalation BID 90 days 3 ea 3RF tiotropium-olodaterol 2.5-2.5 mcg/actuation (Stiolto Respimat) 2 puffs inhalation DAILY 90 days 3 ea 3RF
== END 2024-01-13 14:24 | disposition home or self-care (01) ==
LOC: HO.HPS 13:59
PROVIDERS: PCP Internal Medicine; Visit Provider Hospitalist
DX: J43.2 Centrilobular emphysema (principal); G47.33 Obstructive sleep apnea (adult) (pediatric); J96.11 Chronic respiratory failure with hypoxia; R91.1 Solitary pulmonary nodule
CPT/HCPCS: 99214

== ENCOUNTER → 2024-01-13 13:59 | Outpatient (BNVA) | payer OTHER, MEDICARE, SELFPAY | PROVIDERS: PCP Internal Medicine; Visit Provider Hospitalist ==

== ENCOUNTER 2024-02-14 11:15 | Outpatient (AMB) | payer OTHER, MEDICARE, SELFPAY ==
--- NOTE | 2024-02-14 11:24 | A.OFFVIS_ITS ---
Vital Signs 02/14/24 11:25 Height 5 ft 7 in Weight 160 lb BMI 25.1 BP 110/70 Blood Pressure Location Lt brachial Position Sitting Pulse 92 Pulse Source Pulse Oximeter Pulse Oximetry (%) 97 Oxygen Delivery Method Room Air Comment 2 Liters Oxygen([employer]) Intake Visit Reasons: shortness of breath Allergies lamotrigine [From LAMICTAL] Allergy (Severe, Verified 02/14/24 11:24) agitation and anxiety with titration codeine [CODEINE] Allergy (Intermediate, Verified 02/14/24 11:24) INSOMNIA Penicillins [PENICILLINS] Allergy (Intermediate, Verified 02/14/24 11:24) RASH epinephrine [EPINEPHRINE] Adverse Reaction (Intermediate, Verified 02/14/24 11:24) Hypertension escitalopram [From LEXAPRO] Adverse Reaction (Intermediate, Verified 02/14/24 11:24) NIGHTMARES sertraline [From ZOLOFT] Adverse Reaction (Intermediate, Verified 02/14/24 11:24) NIGHTMARES sulfamethoxazole [From BACTRIM] Adverse Reaction (Intermediate, Verified 02/14/24 11:24) STOMACH UPSET HPI Comments Details: The patient is a 74-year-old gentleman known COPD and also depression. I did have the pleasure meeting him while he was in these [facility] trachea trach unit. He was following up with [place] marketing assistant manager. He decided to transfer his care over to [facility]. Overall he still continues to have significant shortness of breath. His sister see with him because she is concerned. His symptoms about moderate severity. He also complains of productive cough. He has been using Symbicort. He does have increased but is unlikely because of the powder gag exam. Therefore he stopped using it. He also has a rescue inhaler that he uses on a daily basis. He did have pulmonary function studies at some point. Here in the office we did taken for 6 minutes walk test the patient did qualify for oxygen. The patient is interested in pulmonary rehabilitation and therefore will looking to repeating his pulmonary function studies to get him approved for at. In the meantime he is still smoking. He has a greater than 30 pack-year history of smoking. Therefore he will be a great candidate for the lung cancer screening program. He did have his pulmonary function studies and also underwent a CT scan of the chest low-dose protocol demonstrated no significant changes except for extensive emphysema and small pulmonary nodules. He did have a CT scan of the chest to the lung cancer screening program. Demonstrated emphysema along with 1 mm pulmonary nodule. He have another CT scan in a year's time in October of 2020. 01/13/2024 the patient is here for a pulmonary follow-up visit. The patient has been having some difficulty with his inhalers. Initially he was on Symbicort Spiriva that were working well. Then the Symbicort was not available and he was placed on Breztri, but, that not work for him. Therefore he was switched over to Dulera and Spiriva. This appears to be helpful but seems like the Dulera back order and he can not get enough medication. And is struggling with that. The patient is also concerned about the inhaled cortical steroids. He does get tearful at times he does have an issue with mood disorder. He is wondering there is a way that the steroids can be decreased or stopped. I did encourage him to continue the steroid although will switch him to a inhaled steroid monotherapy inhaler and therefore the dose could be adjusted accordingly. In addition to that he is responded well to the Respimat device and therefore will switch him over to Stiolto. He has been using the oxygen with good effect. The oxygen concentrator has been affecting beneficial he continues participating in pulmonary rehabilitation at this time. 02/14/2024 the patient is here for a pulmonary follow-up visit. The patient has been having a hard time with his inhalers. He is pretty upset. He responded very well to the Symbicort after multiple trials he finally find a regimen that will work for him. He uses Symbicort and Spiriva. But, then his insurance will no longer cover the Symbicort and we switched him over to Breztri which she did not tolerate causing hoarseness and fatigue. Then, the patient try Breo and could not tolerate the powder. We switched him over to Dulera and he did not feel like it worked same way. Now he wants to go back on Symbicort. Will go ahead and request a prior approval to get him back on Symbicort since it was the only inhaler that has been affecting beneficial without significant adverse effects. He is very sensitive due to the inhalers due to his psychiatric history. Therefore, agree that we should try to get him covered on Symbicort. He so concerned because of his advanced COPD that is willing to pay [id number] for the Symbicort which is not sustainable. Continues use the oxygen with good effect. Otherwise will follow-up in 3-4 months. If he has any issues or if you have some difficulties getting him the medication then will discuss it further. [facility] Medical History (Updated 02/07/24 @ 15:49 by Yvonne Berkowitz PA-C) CAD (coronary artery disease) Abnormal nuclear stress test Hypertension HLD (hyperlipidemia) Pneumonitis Chronic respiratory failure COPD (chronic obstructive pulmonary disease) Asthma Pulmonary nodule COVID-19 vaccine series completed Personal history of nicotine dependence Hx of small bowel obstruction Tardive dyskinesia Panic disorder History of major depression Generalized anxiety disorder IBS (irritable bowel syndrome) GERD (gastroesophageal reflux disease) Surgical History Stented coronary artery Hx of colonoscopy H/O bilateral inguinal hernia repair Hx of cholecystectomy Family History Father No problems noted. Mother No problems noted. Social History Household Members: Spouse and Children Household Members Other:: [place] Housing: House Are you a primary group care worker to a significant other at home: No Do you presently have visiting nurse or other home services: No Unable to assess alcohol history related to: Unknown Alcohol intake: never Comment: patient stable on ambulation Patient Tobacco Use Status: Former Tobacco user Quit Date: 3 yrs ago Tobacco use type: Cigarette Years Smoked: 35 e-Cigarette/Vaping Use: Never Used Second Hand Smoke Exposure: No service: No Sexual orientation: Lesbian/Triana/Homosexual Review of Systems Const Denies daytime sleepiness, Reports difficulty sleeping and Denies night sweats ENT Denies change in voice, Denies mouth pain and Reports nasal congestion Card Denies chest pain, Reports dyspnea and Reports dyspnea on exertion Resp Reports cough, Denies pain on inspiration, Denies pain with cough, Reports dyspnea, Reports dyspnea on exertion and Reports wheezing GI Denies abdominal pain Musc Denies no additional complaints and Reports abnormal gait Neuro Reports abnormal gait Psych Reports depression, Denies homicidal ideation and Denies suicidal ideation Ross/Lymph Denies easy bleeding and Denies lymphadenopathy Aller/Immun Reports wheezing Physical Exam Vital Signs: Last Vital Signs Pulse 92 02/14/24 11:25 BP 110/70 02/14/24 11:25 Pulse Ox 97 02/14/24 11:25 Oxygen Delivery Method Room Air 02/14/24 11:25 BMI result Body Mass Index 25.1 Const General: alert Nutritional Appearance: thin Neck Neck: Yes normal visual inspection, Yes full ROM and Yes no lymphadenopathy Chest Chest palpation & inspection: normal inspection of the chest, no localized rib tenderness and no tenderness Resp Effort & Inspection: normal respiratory effort and prolonged expiratory phase Auscultation: no crackles, no rales, no rhonchi and diminished lung sounds Cardio Rate: regular rate Rhythm: regular rhythm Heart sounds: S1 normal heart sound present and S2 normal heart sound present GI Palpation (GI): Soft to palpation and nontender Auscultation: normal bowel sounds Skin General skin exam: rashes and/or lesions noted Assessment & Plan Assessment & Plan (1) COPD (chronic obstructive pulmonary disease): Code(s): J44.9 - Chronic obstructive pulmonary disease, unspecified Category: Medical Qualifiers: COPD type: emphysema Emphysema type: centrilobular Qualified Code(s): J43.2 - Centrilobular emphysema (2) PREMA (obstructive sleep apnea): Code(s): G47.33 - Obstructive sleep apnea (adult) (pediatric) Category: Medical (3) Chronic respiratory failure: Comment: The significant emphysema, chronic stable COPD Code(s): J96.10 - Chronic respiratory failure, unspecified whether with hypoxia or hypercapnia Category: Medical Qualifiers: Respiratory failure complication: hypoxia Qualified Code(s): J96.11 - Chronic respiratory failure with hypoxia (4) Pulmonary nodule: Code(s): R91.1 - Solitary pulmonary nodule Category: Medical Plan restart Symbicort 160/4.52 puffs twice a day. (failed Breo,Dulera,Breztri, advair, stiolto, Asmanex, Trelegy, does not tolerate powdered inhalers) We will request a PA for symbicort restart Spiriva 2 inhalation stop Stiolto stop Asmanex stop Breztri continue oxygen supplementation during the daytime restart pulmonary rehabilitation. continue PAP therapy, LDCT program follow-up in 3-4 months Medications: Refilled budesonide-formoterol 160-4.5 mcg/actuation 2 puffs inhalation BID 10.2 grams 11RF 30 days J44.89 - Other specified chronic obstructive pulmonary disease Coding Level of Care Code Est Pt Level 4 (41689) Diagnoses Centrilobular emphysema J43.2 COPD type: emphysema Emphysema type: centrilobular PREMA (obstructive sleep apnea) G47.33 Chronic respiratory failure with hypoxia J96.11 Respiratory failure complication: hypoxia Pulmonary nodule R91.1 Time Spent (min) 16
[2024-02-14 11:25] VITALS: BP 110/70; PULSE 92; O2SAT 97; BMI 25.1
== END 2024-02-14 11:48 | disposition home or self-care (01) ==
PROVIDERS: PCP Internal Medicine; Visit Provider Hospitalist
DX: J43.2 Centrilobular emphysema (principal); G47.33 Obstructive sleep apnea (adult) (pediatric); J96.11 Chronic respiratory failure with hypoxia; R91.1 Solitary pulmonary nodule
CPT/HCPCS: 99214

== ENCOUNTER → 2024-02-14 11:15 | Outpatient (BNVA) | payer OTHER, SELFPAY | PROVIDERS: PCP Internal Medicine; Visit Provider Hospitalist | DX: J43.2 Centrilobular emphysema (principal); G47.33 Obstructive sleep apnea (adult) (pediatric); J96.11 Chronic respiratory failure with hypoxia; R91.1 Solitary pulmonary nodule | CPT/HCPCS: 99212 ==

== ENCOUNTER 2024-02-18 15:06 | Outpatient (REF) | payer SELFPAY ==
--- NOTE | 2024-02-18 16:23 | MHC.AU.CE1 ---
Addendum entered and electronically signed by Erin Garrison, JARRED-A 02/18/24 16:34: Wax removal was attempted using lighted curette and magnification following use of wax softening drops, but the wax was still very hard and little removed. Original Note: Cerumen Removal- Right Ear Date of Visit: 02/18/24 Medical Conditions: Fullness in Ear(s). Complaint of wax in right ear. Medications: No Medications of Concern for Cerumen Removal Procedure: Right Ear: Unusual Findings: No Unusual Findings Prior to Removal: Complete Occlusion Outcome of Procedure: Encountered difficulty removing cerumen. Cerumen softening drops used. Very little to no cerumen was able to be removed. Left ear- no wax found. Recommendations: Recommendations: Use of cerumen drops, such as Debrox or EarWaxMD Schedule return for continued cerumen removal after use of drops Diagnosis Code(s): Primary Diagnosis: H61.21 Impacted Cerumen, Right Ear Services Performed: Cerumen Removal (CPT 61690) One [facility] Signature: Provider: Danilo Duenas, CCC-A
== END 2024-02-18 15:07 | disposition home or self-care (01) ==
LOC: HO.HAP 15:06
PROVIDERS: Visit Provider Internal Medicine
DX: Z46.1 Encounter for fitting and adjustment of hearing aid (principal); H61.21 Impacted cerumen, right ear
CPT/HCPCS: 92700

== ENCOUNTER 2024-02-25 15:14 | Outpatient (REF) | payer SELFPAY ==
--- NOTE | 2024-02-26 09:51 | MHC.AU.CE1 ---
Cerumen Removal- Right Ear Date of Visit: 02/25/24 Medical Conditions: Fullness in Ear(s) Medications: No Medications of Concern for Cerumen Removal Procedure: Right Ear: Prior to Removal: Complete Occlusion Outcome of Procedure: Very little to no cerumen was able to be removed. Other: Jameel returned to complete wax removal, he was last here 02/18/24. He reports that he has been using the wax softening drops nightly and that he has seen wax come out of his ear. He reports improvement in hearing but not feeling back to baseline. Otoscopy reveals visually occluding cerumen Ad, does appear softer than last time. Attempted removal with loupe and lighted curette. Trimmed ear hair a bit as it was interfering with loupe light visibility. Similar to last time, minimal wax was removed. Pt. felt pressure at curette tapping on wax. Recommended continued use of softening drops. Pt. will return one more time in one week. Discussed wax removal elsewhere, with different tools, if we cannot clear canal at next visit. No charge today as he paid at last visit. Recommendations: Recommendations: Use of cerumen drops, such as Debrox or EarWaxMD Schedule return for continued cerumen removal after use of drops Diagnosis Code(s): Primary Diagnosis: H61.21 Impacted Cerumen, Right Ear Signature: Provider: Danilo Duenas, [facility]
== END 2024-02-25 15:15 | disposition home or self-care (01) ==
LOC: HO.HAP 15:14
PROVIDERS: Visit Provider Internal Medicine
DX: Z13.89 Encounter for screening for other disorder (principal)

== ENCOUNTER 2024-03-31 16:17 | Outpatient (REF) | payer OTHER, SELFPAY ==
--- NOTE | ~2024-03-31 | CT_ITS ---
EXAMINATION: CT LOW-DOSE SCREENING CHEST WITHOUT CONTRAST CLINICAL INFORMATION: Personal history of nicotine dependence. The patient has a 30 pack-year history of smoking, having quit 4 years ago. COMPARISON: Multiple prior CT scans of the chest, the most recent of which is dated 08/10/2022 and the most remote of which is dated 11/11/2019. TECHNIQUE: Multidetector volumetric CT imaging of the chest is performed on a Siemens SOMATOM Definition scanner without contrast using low dose technique. Additional 2D coronal and sagittal reformatted images and axial 3D maximum intensity projection (MIP) images are generated on the CT workstation. This CT examination was performed using dose optimization techniques as appropriate, variously including the following: *Automated exposure control *Adjustment of mA and/or kV according to patient size (this includes techniques or standardized protocols for targeted exams where dose is matched to indication/reason for exam; i.e. extremities or head) *Use of iterative reconstruction technique TOTAL EXAM DLP: 43 mGy-cm. CTDIvol: 1.28 mGy. FINDINGS: PULMONARY NODULES: -3 mm calcified granuloma right apex, unchanged. There are a few additional scattered tiny 1-2 mm granulomata, stable, most notable in the right lower lobe. -Nodular reticular area in the superior segment right lower lobe, anterolateral aspect abutting the major fissure, stable from prior exams and benign (Series 6, image 312). -No new or enlarging nodules. LUNGS: -Severe centrilobular emphysema with upper lobe predominance and apical bullous changes, similar. -Mild bronchial and small airways thickening throughout both lungs suggesting bronchitis. Mild bronchiectasis in the lower lobe distributions. -There is some reticular scarring in the right base. -No consolidations or abnormal groundglass opacities. -No pleural effusions or pleural abnormalities. MEDIASTINUM: -No adenopathy present. -Aorta normal in caliber with moderate calcification. -Main pulmonary artery normal in size. -Heavy aortic valvular calcifications, which can be seen with bicuspid valve. -Normal heart size. -Esophagus normal aside from a small type I hiatus hernia. -No pericardial effusion. CORONARY ARTERY CALCIFICATION: Mild to moderate three-vessel calcifications. THYROID GLAND: Probable nodule in the lower isthmus measuring 8 mm. Otherwise normal. CHEST WALL/AXILLA: No adenopathy or mass. UPPER ABDOMEN: -Prior cholecystectomy. Calcific atheromatous changes of the imaged abdominal aorta and splenic artery. -Normal adrenal glands. OSSEOUS STRUCTURES: No suspicious focal findings. CT/CT lung screening IMPRESSION: -Stable examination. No new or enlarging lung nodules. Stable scattered calcific granulomata. -Severe emphysema. No definite active lung disease. - Diffuse bronchial wall thickening with bronchiectasis in the bilateral lower lobes, findings suggesting bronchitis. -Heavy calcification of the aortic valve leaflets, findings which could suggest bicuspid valve and likely aortic stenosis. Correlation with echo may be of benefit. -Additional ancillary findings as discussed. ASSESSMENT: 1. Lung-RADS Category 2: Benign appearance or behavior of nodules. 2. Lung-RADS Category S: Negative. RECOMMENDATION: Continued routine annual low-dose CT lung screening in 1 year is recommended. An order for CT CHEST LOW DOSE CANCER SCREENING ([id number]) can be placed.
== END 2024-03-31 16:18 | disposition home or self-care (01) ==
LOC: HO.CT 16:17
PROVIDERS: PCP Internal Medicine; Visit Provider Physician Assistant Medical
DX: Z12.2 Encounter for screening for malignant neoplasm of respiratory organs (principal); Z87.891 Personal history of nicotine dependence
CPT/HCPCS: 71271

== ENCOUNTER → 2024-03-31 16:17 | Outpatient (BNV) | payer OTHER, SELFPAY | PROVIDERS: PCP Internal Medicine; Visit Provider Radiology Diagnostic Radiology | DX: Z87.891 Personal history of nicotine dependence (principal) | CPT/HCPCS: 71271 ==

== ENCOUNTER 2024-04-09 14:06 | Outpatient (AMB) | payer OTHER, MEDICARE, SELFPAY ==
[2024-04-09 14:15] VITALS: BP 128/78; PULSE 112; O2SAT 96; BMI 24.5
--- NOTE | 2024-04-09 14:16 | MHC.OFFVIS ---
Vital Signs 04/09/24 14:15 04/09/24 14:20 Height 5 ft 7 in Weight 156 lb 8.451 oz BMI 24.5 24.5 BP 128/78 Blood Pressure Location Rt brachial Position Sitting Pulse 112 H Pulse Source Doppler Pulse Oximetry (%) 96 Oxygen Delivery Method Room Air Intake Visit Reasons: COPD Allergies lamotrigine [From LAMICTAL] Allergy (Severe, Verified 02/14/24 11:24) agitation and anxiety with titration codeine [CODEINE] Allergy (Intermediate, Verified 02/14/24 11:24) INSOMNIA Penicillins [PENICILLINS] Allergy (Intermediate, Verified 02/14/24 11:24) RASH epinephrine [EPINEPHRINE] Adverse Reaction (Intermediate, Verified 02/14/24 11:24) Hypertension escitalopram [From LEXAPRO] Adverse Reaction (Intermediate, Verified 02/14/24 11:24) NIGHTMARES sertraline [From ZOLOFT] Adverse Reaction (Intermediate, Verified 02/14/24 11:24) NIGHTMARES sulfamethoxazole [From BACTRIM] Adverse Reaction (Intermediate, Verified 02/14/24 11:24) STOMACH UPSET HPI Comments Details: The patient is a 74-year-old gentleman known COPD and also depression. I did have the pleasure meeting him while [facility] was [facility]. 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 He decided to transfer his care over to [facility]. Overall he still continues to have significant shortness of breath. His sister see with him because she is concerned. His symptoms about moderate severity. He also complains of productive cough. He has been using Symbicort. He does have increased but is unlikely because of the powder gag exam. Therefore he stopped using it. He also has a rescue inhaler that he uses on a daily basis. He did have pulmonary function studies at some point. Here in the office we did taken for 6 minutes walk test the patient did qualify for oxygen. The patient is interested in pulmonary rehabilitation and therefore will looking to repeating his pulmonary function studies to get him approved for at. In the meantime he is still smoking. He has a greater than 30 pack-year history of smoking. Therefore he will be a great candidate for the lung cancer screening program. He did have his pulmonary function studies and also underwent a CT scan of the chest low-dose protocol demonstrated no significant changes except for extensive emphysema and small pulmonary nodules. He did have a CT scan of the chest to the lung cancer screening program. Demonstrated emphysema along with 1 mm pulmonary nodule. He have another CT scan in a year's time in October of 2020. 01/13/2024 the patient is here for a pulmonary follow-up visit. The patient has been having some difficulty with his inhalers. Initially he was on Symbicort Spiriva that were working well. Then the Symbicort was not available and he was placed on Breztri, but, that not work for him. Therefore he was switched over to Dulera and Spiriva. This appears to be helpful but seems like the Dulera back order and he can not get enough medication. And is struggling with that. The patient is also concerned about the inhaled cortical steroids. He does get tearful at times he does have an issue with mood disorder. He is wondering there is a way that the steroids can be decreased or stopped. I did encourage him to continue the steroid although will switch him to a inhaled steroid monotherapy inhaler and therefore the dose could be adjusted accordingly. In addition to that he is responded well to the Respimat device and therefore will switch him over to Stiolto. He has been using the oxygen with good effect. The oxygen concentrator has been affecting beneficial he continues participating in pulmonary rehabilitation at this time. 02/14/2024 the patient is here for a pulmonary follow-up visit. The patient has been having a hard time with his inhalers. He is pretty upset. He responded very well to the Symbicort after multiple trials he finally find a regimen that will work for him. He uses Symbicort and Spiriva. But, then his insurance will no longer cover the Symbicort and we switched him over to Breztri which she did not tolerate causing hoarseness and fatigue. Then, the patient try Breo and could not tolerate the powder. We switched him over to Dulera and he did not feel like it worked same way. Now he wants to go back on Symbicort. Will go ahead and request a prior approval to get him back on Symbicort since it was the only inhaler that has been affecting beneficial without significant adverse effects. He is very sensitive due to the inhalers due to his psychiatric history. Therefore, agree that we should try to get him covered on Symbicort. He so concerned because of his advanced COPD that is willing to pay [id number] for the Symbicort which is not sustainable. Continues use the oxygen with good effect. Otherwise will follow-up in 3-4 months. If he has any issues or if you have some difficulties getting him the medication then will discuss it further. 04/09/2024 the patient is here for a pulmonary follow-up visit. Overall he is doing fair. He is still having difficulty with breathing. Also having issues with sinusitis. After doing some research on his own he figured out that the Spiriva may be causing his sinusitis. Therefore he opts not to take it. He has been on multiple inhalers, but, some of them causing him to have adverse effects. He realized after using multiple inhalers that Breo will be his best option. Therefore I will send him Breo 100 mcg the pharmacy where he would use it once a day. He will stop the Spiriva at this time. The patient also has a nebulizer that he can use as needed. As far as sinusitis he has 2 course of antibiotics. Hopefully he starts feeling better. Will provide him some nasal sprays to help him with the nasal congestion and the sinus inflammation. The patient is also off the prednisone which is reassuring. Remind imaging studies standpoint the patient is participating in the lung cancer screening program. He just had a CT scan that we personally reviewed although has not been officially read. He has extensive emphysema but no worsening nodular densities to appreciate. [facility] Medical History (Updated 02/07/24 @ 15:49 by Yvonne Berkowitz PA-C) CAD (coronary artery disease) Abnormal nuclear stress test Hypertension HLD (hyperlipidemia) Pneumonitis Chronic respiratory failure COPD (chronic obstructive pulmonary disease) Asthma Pulmonary nodule COVID-19 vaccine series completed Personal history of nicotine dependence Hx of small bowel obstruction Tardive dyskinesia Panic disorder History of major depression Generalized anxiety disorder IBS (irritable bowel syndrome) GERD (gastroesophageal reflux disease) Surgical History Stented coronary artery Hx of colonoscopy H/O bilateral inguinal hernia repair Hx of cholecystectomy Family History Father No problems noted. Mother No problems noted. Social History Household Members: Spouse and Children Household Members Other:: [place] Housing: House Are you a primary aged or disabled care worker to a significant other at home: No Do you presently have visiting nurse or other home services: No Unable to assess alcohol history related to: Unknown Alcohol intake: never Comment: patient stable on ambulation Patient Tobacco Use Status: Former Tobacco user Tobacco use type: Cigarette Years Smoked: 35 e-Cigarette/Vaping Use: Never Used Second Hand Smoke Exposure: No service: No Sexual orientation: Lesbian/Triana/Homosexual Review of Systems Const Denies daytime sleepiness, Reports difficulty sleeping and Denies night sweats ENT Denies change in voice, Denies mouth pain, Reports nasal congestion, Reports nasal discharge, Reports nasal obstruction and Reports sinus pressure Card Denies chest pain, Reports dyspnea and Reports dyspnea on exertion Resp Reports cough, Denies pain on inspiration, Denies pain with cough, Reports dyspnea, Reports dyspnea on exertion and Reports wheezing GI Denies abdominal pain Musc Denies no additional complaints and Reports abnormal gait Neuro Reports abnormal gait Psych Reports depression, Denies homicidal ideation and Denies suicidal ideation Ross/Lymph Denies easy bleeding and Denies lymphadenopathy Aller/Immun Reports wheezing Physical Exam Vital Signs: Last Vital Signs Pulse 112 H 04/09/24 14:15 BP 128/78 04/09/24 14:15 Pulse Ox 96 04/09/24 14:15 Oxygen Delivery Method Room Air 04/09/24 14:15 BMI result Body Mass Index 24.5 Const General: alert Nutritional Appearance: thin Neck Neck: Yes normal visual inspection, Yes full ROM and Yes no lymphadenopathy Chest Chest palpation & inspection: normal inspection of the chest, no localized rib tenderness and no tenderness Resp Effort & Inspection: normal respiratory effort Auscultation: no crackles, no rales, no rhonchi and diminished lung sounds Cardio Rate: regular rate Rhythm: regular rhythm Heart sounds: S1 normal heart sound present and S2 normal heart sound present GI Palpation (GI): Soft to palpation and nontender Auscultation: normal bowel sounds Skin General skin exam: rashes and/or lesions noted Assessment & Plan Assessment & Plan (1) COPD (chronic obstructive pulmonary disease): Code(s): J44.9 - Chronic obstructive pulmonary disease, unspecified Category: Medical Qualifiers: COPD type: emphysema Emphysema type: centrilobular Qualified Code(s): J43.2 - Centrilobular emphysema (2) PREMA (obstructive sleep apnea): Code(s): G47.33 - Obstructive sleep apnea (adult) (pediatric) Category: Medical (3) Chronic respiratory failure: Comment: The significant emphysema, chronic stable COPD Code(s): J96.10 - Chronic respiratory failure, unspecified whether with hypoxia or hypercapnia Category: Medical Qualifiers: Respiratory failure complication: hypoxia Qualified Code(s): J96.11 - Chronic respiratory failure with hypoxia (4) Pulmonary nodule: Code(s): R91.1 - Solitary pulmonary nodule Category: Medical Plan stop Symbicort 160/4.52 puffs twice a day. (failed Breo,Dulera,Breztri, advair, stiolto, Asmanex, Trelegy, does not tolerate powdered inhalers) start Breo 100 stop pulmomicort hold Spiriva 2 inhalation continue oxygen supplementation during the daytime pulmonary rehabilitation. continue PAP therapy nasal therapy LDCT program follow-up in 3-4 months Medications: New fluticasone furoate-vilanterol 100-25 mcg/dose (Breo Ellipta) 1 inh inhalation DAILY 60 ea 11RF 30 days budesonide 32 mcg/actuation administer into each nostril 2 sprays intranasal DAILY 8.43 mL 11RF 30 days oxymetazoline 0.05% (Afrin Sinus (oxymetazoline)) 2 sprays intranasal Q12H PRN 15 mL 0RF nasal congestion 5 days Coding Level of Care Code Est Pt Level 4 (91853) Diagnoses Centrilobular emphysema J43.2 COPD type: emphysema Emphysema type: centrilobular PREMA (obstructive sleep apnea) G47.33 Chronic respiratory failure with hypoxia J96.11 Respiratory failure complication: hypoxia Pulmonary nodule R91.1 Time Spent (min) 17
--- NOTE | 2024-04-09 14:16 | MHC.OFFVIS ---
Vital Signs 04/09/24 14:15 04/09/24 14:17 04/09/24 14:20 Height 5 ft 7 in Weight 156 lb 8.451 oz BMI 24.5 24.5 24.5 BP 128/78 Blood Pressure Location Rt brachial Position Sitting Pulse 112 H Pulse Source Doppler Pulse Oximetry (%) 96 Oxygen Delivery Method Room Air Intake Visit Reasons: COPD Allergies lamotrigine [From LAMICTAL] Allergy (Severe, Verified 02/14/24 11:24) agitation and anxiety with titration codeine [CODEINE] Allergy (Intermediate, Verified 02/14/24 11:24) INSOMNIA Penicillins [PENICILLINS] Allergy (Intermediate, Verified 02/14/24 11:24) RASH epinephrine [EPINEPHRINE] Adverse Reaction (Intermediate, Verified 02/14/24 11:24) Hypertension escitalopram [From LEXAPRO] Adverse Reaction (Intermediate, Verified 02/14/24 11:24) NIGHTMARES sertraline [From ZOLOFT] Adverse Reaction (Intermediate, Verified 02/14/24 11:24) NIGHTMARES sulfamethoxazole [From BACTRIM] Adverse Reaction (Intermediate, Verified 02/14/24 11:24) STOMACH UPSET PFSH Medical History (Updated 02/07/24 @ 15:49 by Yvonne Berkowitz PA-C) CAD (coronary artery disease) Abnormal nuclear stress test Hypertension HLD (hyperlipidemia) Pneumonitis Chronic respiratory failure COPD (chronic obstructive pulmonary disease) Asthma Pulmonary nodule COVID-19 vaccine series completed Personal history of nicotine dependence Hx of small bowel obstruction Tardive dyskinesia Panic disorder History of major depression Generalized anxiety disorder IBS (irritable bowel syndrome) GERD (gastroesophageal reflux disease) Surgical History Stented coronary artery Hx of colonoscopy H/O bilateral inguinal hernia repair Hx of cholecystectomy Family History Father No problems noted. Mother No problems noted. Social History Household Members: Spouse and Children Household Members Other:: [place] Housing: House Are you a primary child care education coordinator to a significant other at home: No Do you presently have visiting nurse or other home services: No Unable to assess alcohol history related to: Unknown Alcohol intake: never Comment: patient stable on ambulation Patient Tobacco Use Status: Former Tobacco user Tobacco use type: Cigarette Years Smoked: 35 e-Cigarette/Vaping Use: Never Used Second Hand Smoke Exposure: No service: No Sexual orientation: Lesbian/Triana/Homosexual Physical Exam Vital Signs: Last Vital Signs Pulse 112 H 04/09/24 14:15 BP 128/78 04/09/24 14:15 Pulse Ox 96 04/09/24 14:15 Oxygen Delivery Method Room Air 04/09/24 14:15 BMI result Body Mass Index 24.5 Quality Reporting (2020) Adult ([facility] 138/11/14/68) Body Mass Index: 24.5 Coding
[2024-04-09 14:20] VITALS: BMI 24.5
== END 2024-04-09 16:11 | disposition home or self-care (01) ==
PROVIDERS: PCP Internal Medicine; Visit Provider Hospitalist
DX: J43.2 Centrilobular emphysema (principal); G47.33 Obstructive sleep apnea (adult) (pediatric); J96.11 Chronic respiratory failure with hypoxia; R91.1 Solitary pulmonary nodule
CPT/HCPCS: 99214

== ENCOUNTER → 2024-04-09 14:06 | Outpatient (BNVA) | payer OTHER, MEDICARE, SELFPAY | PROVIDERS: PCP Internal Medicine; Visit Provider Hospitalist ==

== ENCOUNTER 2024-05-20 05:58 | Emergency (ER) | payer OTHER, MEDICARE, SELFPAY ==
--- NOTE | ~2024-05-20 | CT_ITS ---
EXAMINATION: CT ABDOMEN AND PELVIS WITH CONTRAST CLINICAL INFORMATION: Abdominal pain COMPARISON: Multiple previous CT scans with the last CT abdomen and pelvis of 03/19/2023 TECHNIQUE: Multidetector volumetric images were obtained from the superior aspect of the liver through the pubic symphysis following administration 85 mL of Omnipaque 350 intravenous contrast. Sagittal and coronal reformatted images were obtained on the technologist's workstation. Oral contrast: No This CT examination was performed using dose optimization techniques as appropriate, variously including the following: *Automated exposure control *Adjustment of mA and/or kV according to patient size (this includes techniques or standardized protocols for targeted exams where dose is matched to indication/reason for exam; i.e. extremities or head) *Use of iterative reconstruction technique DLP: 425 mGy-cm FINDINGS: LUNG BASES: Changes of bronchiectasis are noted at the lung bases, right greater than left with mild bronchial thickening. Additionally changes of emphysema are noted as well. No pleural or pericardial effusion. Small hiatal hernia. LIVER, GALLBLADDER, AND BILIARY TREE: The liver is normal in size, shape, and attenuation. No focal hepatic lesion or biliary ductal dilatation is present. The gallbladder is surgically absent. The common bile duct is within upper limits of normal for caliber measuring 0.8 cm. No radiopaque filling defect is noted in the common bile duct. Minimal central intrahepatic biliary ductal dilatation is stable and an expected finding in the setting of prior cholecystectomy. PANCREAS: Unremarkable. SPLEEN: Unremarkable. ADRENAL GLANDS: Unremarkable. KIDNEYS AND URETERS: The kidneys are normal in size, shape, and attenuation. No hydronephrosis, hydroureter, or calculi seen. No perinephric stranding. BLADDER: Unremarkable. GASTROINTESTINAL TRACT: The stomach is largely decompressed and therefore not optimally evaluated. No abnormal small bowel dilatation. The colon is normal in caliber. No evidence of colonic wall thickening or pericolonic fat stranding. Diffuse colonic diverticulosis is noted, without evidence of acute diverticulitis. Moderate stool burden in the colon. An appendix is normal. PERITONEAL CAVITY: There is no evidence of free intraperitoneal air or fluid. No inflammatory changes or nodularity is seen in the omentum and mesentery. ABDOMINAL WALL: No significant abdominal wall hernia is noted. LYMPH NODES: No evidence of pathologically enlarged lymph nodes. VASCULAR: Aortoiliac vessels are normal in caliber. Moderate calcific atherosclerosis of the aortoiliac vessels. PELVIC VISCERA: The prostate is mildly enlarged protruding into the bladder base. Normal seminal vesicles. OSSEOUS STRUCTURES: Diffuse osteopenia is suspected. No acute or suspicious osseous lesions are seen. Mild facet arthropathy in the lower lumbar spine. CT/CT abdomen pelvis w IV con IMPRESSION: 1. No acute abnormality is noted in the abdomen and pelvis. 2. Diffuse colonic diverticulosis without acute diverticulitis. Moderate stool burden in the colon. 3. Small hiatal hernia. 4. Changes of bronchiectasis and emphysema at the lung bases. Fleischner guidelines were followed. Electronically signed by: Dawit Bailey MD 05/20/2024 07:54 AM EDT
[2024-05-20 06:07] VITALS: BP 142/82; PULSE 109; RESP 20; TEMP 36.8; O2SAT 97; BMI 23.2
[2024-05-20] MEDS: ondansetron HCL 4 MG/2 ML VIAL IVPUSH (06:26)
[2024-05-20 06:27] LABS: MANUAL DIFF FLAG NO
[2024-05-20 06:29] LABS: Basophils Percent Auto 0.5 % (0-2); Eosinophils Absolute Auto 0.2 X10*3/uL (0.0-0.4); Eosinophils Percent Auto 2.1 % (0-4); Hematocrit 46.9 % (42.0-52.0); Hemoglobin 15.9 g/dl (14.0-18.0); Imm Gran Abs Auto 0.02 X10*3/uL (0.00-0.03); Imm Gran Pct Auto 0.2 % (0.0-0.4); Mean Corpuscular HGB Conc 33.9 g/dl (31.0-36.0); Mean Corpuscular Hemoglobin 29.6 pg (27.0-33.0); Mean Corpuscular Volume 87.3 fL (80.0-98.0); Mean Platelet Volume 8.5 fL (9.4-12.4); Monocytes Absolute Auto 0.7 X10*3/uL (0.1-1.2); Monocytes Percent Auto 8.7 % (2-11); Neutrophils Absolute Auto 4.2 x10*3/uL (2.0-8.3); Neutrophils Percent Auto 51.5 % (45-73); Platelet Count 236 X10*3/uL (160-400); Red Blood Count 5.37 X10*6/uL (4.60-5.80); Red Cell Distribution Width 13.1 % (11.0-16.0); White Blood Count 8.2 X10*3/uL (4.8-10.8)
--- NOTE | 2024-05-20 06:31 | ED.ABDPAIN ---
HPI - Abdominal Pain General Chief Complaint: Abdominal Pain Stated Complaint: abdominal pain, has IBS Time Seen by Provider: 05/20/24 06:31 Source: patient and RN notes reviewed Mode of arrival: ambulatory Limitations: no limitations History of Present Illness ED Provider: Gissel Goodwin PA-C HPI narrative: This is a 74-year-old male, with a history IBS, cardiac stents, and COPD, who presents emergency department with complaints of abdominal pain for the last 3 days. Patient reports that over the last 2 weeks he has had what he thought was an IBS flare-up seen at [facility]. He had normal labs and a normal CT scan. He states that was discharged on Bentyl, oxycodone, which he has been taking which has provided him with some relief up until 3 days ago. He states that over the last 3 days he has had intermittent abdominal pain, which has turned to constant abdominal pain since yesterday. He describes this as a constant cramping like pain. He denies any fevers or chills. He denies any chest pain or shortness of breath. He reports decreased appetite, as well as nausea. Denies any vomiting, diarrhea or constipation. Denies any bloody or black stool. Denies any urinary symptoms. Denies history of abdominal surgeries in the past. No other complaints or concerns at this time. MD elicited complaint: abdominal pain Pertinent past history: other (IBS) Onset (ago): day(s) Pain Consistency: constant Location: diffuse Severity: moderate Quality: cramping Radiation: none Migration to: no migration Exacerbating factors: eating and movement Relieving factors: nothing Associated symptoms: nausea Related Data Home Medications ?Medication ?Instructions ?Recorded ?Confirmed cholecalciferol (vitamin D3) 25 50 mcg PO DAILY 08/28/21 05/21/24 mcg (1,000 unit) tablet (Vitamin D3) lorazepam 1 mg tablet 1 tab PO TID PRN Anxiety 08/28/21 05/21/24 polyethylene glycol 3350 17 17 g PO DAILY 08/28/21 05/21/24 gram/dose oral powder (Miralax) amlodipine 5 mg tablet 5 mg PO DAILY 10/30/22 05/21/24 Oxygen Home Use 02/14/23 nebulizers 01/13/24 budesonide 90 mcg/actuation breath 1 inh inhalation BID 05/21/24 05/21/24 activated powder inhaler (Pulmicort Flexhaler) dicyclomine 10 mg capsule 20 mg PO TIDAC PRN gastric 05/21/24 05/21/24 discomfort nortriptyline 25 mg capsule 25 mg PO BEDTIME 05/21/24 05/21/24 Previous Rx's ?Medication ?Instructions ?Recorded famotidine 20 mg tablet 10 mg (1/2 x 20 mg) PO BID 30 days 09/14/21 #30 tabs blood pressure test kit-medium #1 ea 10/16/21 omeprazole 20 mg capsule,delayed 20 mg PO DAILY 30 days #30 caps 04/21/22 release levalbuterol HCl 1.25 mg/3 mL 1.25 mg (3 mL) inhalation BID 30 07/11/23 solution for nebulization days #180 mL fluticasone furoate 200 1 inh inhalation DAILY 30 days #60 10/16/23 mcg-vilanterol 25 mcg/dose ea inhalation powder (Breo Ellipta) levalbuterol tartrate 45 2 puff inhalation Q4H PRN for 04/15/24 mcg/actuation aerosol inhaler wheezing #15 ea Allergies Allergy/AdvReac Type Severity Reaction Status Date / Time lamotrigine [From LAMICTAL] Allergy Severe agitation Verified 05/20/24 06:07 and anxiety with titration codeine [CODEINE] Allergy Intermediate INSOMNIA Verified 05/20/24 06:07 Penicillins [PENICILLINS] Allergy Intermediate RASH Verified 05/20/24 06:07 epinephrine [EPINEPHRINE] AdvReac Intermediate Hypertensio Verified 05/20/24 06:07 n escitalopram [From LEXAPRO] AdvReac Intermediate NIGHTMARES Verified 05/20/24 06:07 sertraline [From ZOLOFT] AdvReac Intermediate NIGHTMARES Verified 05/20/24 06:07 sulfamethoxazole AdvReac Intermediate STOMACH Verified 05/20/24 06:07 [From BACTRIM] UPSET Review of Systems Review of Systems Yes all other systems are reviewed and are negative Constitutional: Reports as per [facility] Past Medical History Medical History CAD (coronary artery disease) Abnormal nuclear stress test Hypertension HLD (hyperlipidemia) Pneumonitis Chronic respiratory failure COPD (chronic obstructive pulmonary disease) Asthma Pulmonary nodule COVID-19 vaccine series completed Personal history of nicotine dependence Hx of small bowel obstruction Tardive dyskinesia Panic disorder History of major depression Generalized anxiety disorder IBS (irritable bowel syndrome) GERD (gastroesophageal reflux disease) Surgical History Stented coronary artery Hx of colonoscopy H/O bilateral inguinal hernia repair Hx of cholecystectomy Family History Family History Father No problems noted. Mother No problems noted. Social History Social History Household Members: Spouse and Children Household Members Other:: Emeka Housing: House Are you a primary campground caretaker to a significant other at home: No Do you presently have visiting nurse or other home services: No Unable to assess alcohol history related to: Unknown Alcohol intake: never Comment: patient stable on ambulation Patient Tobacco Use Status: Former Tobacco user Tobacco use type: Cigarette Years Smoked: 35 Smoked in Last 30 Days: No e-Cigarette/Vaping Use: Never Used Second Hand Smoke Exposure: No Use of substances other than those prescribed or required for medical reasons: No Advance Directives: No service: No Sexual orientation: Lesbian/Triana/Homosexual Physical Exam ED Vital Signs: Vital Signs - 24 hr 05/20/24 12:31 05/20/24 22:41 05/21/24 07:08 Temperature 98.2 F 98.0 F 97.9 F Pulse Rate 103 H 108 H 94 Respiratory Rate 18 22 H 18 Blood Pressure 124/91 H 141/78 H 113/90 H Pulse Oximetry 96 92 94 Oxygen Delivery Method Room Air Room Air Room Air 05/21/24 08:00 05/21/24 08:22 Temperature 97.6 F Pulse Rate 120 H 120 H Respiratory Rate 20 Blood Pressure 123/83 Pulse Oximetry 95 Oxygen Delivery Method Room Air BMI result Body Mass Index 23.2 Const General: cooperative, comfortable and no acute distress Orientation/consciousness: patient oriented x3 Limitations: no limitations HENMT Head: Yes normal to inspection, Yes normocephalic and Yes atraumatic Ears: hearing grossly normal bilaterally General nose exam: Normal external nose present Face and sinus: Yes normal facial exam Mouth: Normal oral and palatal mucosa present, oropharynx normal and moist mucous membranes Throat: Yes posterior oropharynx normal Eyes General: appearance normal, both eyes and all related structures Eyelids: Yes eyelids normal Conjunctivae: conjunctivae normal Sclerae: sclerae normal Pupils: Equal, round and reactive pupils present EOM: EOMs intact bilaterally Neck Neck: Yes normal visual inspection, Yes full ROM and Yes no lymphadenopathy Lymphatic: no lymphadenopathy noted Chest Chest palpation & inspection: normal inspection of the chest Resp Effort & Inspection: normal respiratory effort and able to speak in complete sentences Auscultation: clear to auscultation bilaterally, no crackles, no rales, no rhonchi and no wheezes Cardio Rate: regular rate Rhythm: regular rhythm Heart sounds: S1 normal heart sound present and S2 normal heart sound present GI Other: Abdomen is soft, with tenderness palpation in the upper abdomen, with rebound and guarding. Hyperactive bowel sounds present in all 4 quadrants. Inspection: Yes normal to inspection Skin General skin exam: no rashes or lesions noted Trauma: no lacerations or abrasions Wounds: no wounds Neuro General: patient oriented x3 and moves all extremities Cranial nerves: Yes Equal, round and reactive pupils present Extrem General: Yes normal to inspection Right upper extremity: normal to inspection Left upper extremity: normal to inspection Right lower extremity: normal to inspection Left lower extremity: normal to inspection Course Reevaluation(s) Reevaluation #1: CT scan returns, revealing no acute abnormality noted. There is diffuse colonic diverticulosis without diverticulitis. There is moderate stool burden in the colon. There is a small hiatal hernia. They are changes of bronchiectasis and emphysema in the lung bases. Labs returned, he has no leukocytosis, stable H&H, chemistry revealing no electrolyte derangement. No evidence of KERI. Negative troponin urine does not appear to be infected. Discussed findings with patient. Upon my initial assessment, patient states that he has 100% better. He states that he does still have 5/10 pain however. I discussed with patient that he needs to p.o. challenge in the department prior to his departure. He understands however he is resistant as he is still having some abdominal pain. Will give IV fluids, and reassess in about 30 minutes to an hour. He is in agreement. Time: 08:16 Reevaluation #2: Patient reporting increased pain. Requesting dose of Bentyl. Will also medicate with 2nd dose of morphine. We will continue to monitor. Time: 09:40 Reevaluation #3: Patient has been here for many hours, he was able to eat and drink without difficulty. I called and spoke to Dr. May, patient's GI specialist whom given his workup today there is no additional medications/treatment that he would recommend. There is a concern whether or not this is psychogenic in nature as well. Dr. May will see if there are any earlier appointments than June but unsure if there are. He states that his stomach is feeling much better. States that he is fearful for going home because he feels as though he is not able to care for himself. He states that he has had global weakness and feels that he is unable to fully take care of himself. He is agreeable to having a physical therapy and case management evaluation to see if there is any additional things that they could offer. He is agreeable. Patient physician observation pending PT Case Management disposition. Time: 16:20 Additional Reevaluation(s): 05/21/2024 0945 --> Physician observation continues. Patient continues to be followed by CM. 05/21/2024 1112--> Observation care revealed the the patient does not meet medical necessity for hospitalization. Final disposition discussed with the patient and the patient's who verbalized understanding and agreement. Patient completed observation care at 1113, total time spent in observation care was 19 hours and 24 minutes. Medical Decision Making Medical Decision Making [facility] Narrative: This is a 74-year-old male who presents emergency department with complaints of abdominal pain for the last 3 days. On arrival, patient tachycardic at 109bpm he is afebrile, mildly hypertensive at 142/82. He is nontoxic-appearing. Abdomen is soft however with diffuse tenderness to palpation. Given abdominal tenderness, labs, EKG, and CT abdomen with contrast ordered. Also medicated with morphine and Zofran. Differential Diagnosis Differential Diagnoses: The differential diagnosis associated with the presentation includes IBS, gastroenteritis, gastritis, bowel obstruction, colitis Admission/Observation Consideration of admission/observation: Escalation of care including admission/observation considered Lab Data [facility] Lab Attestation statement: I reviewed the patient's lab results. 05/20/24 06:24 05/20/24 06:24 Labs: Lab Results 05/20/24 05/20/24 05/21/24 Range/Units 06:24 07:55 01:31 WBC 8.2 (4.8-10.8) X10*3/uL RBC 5.37 (4.60-5.80) X10*6/uL Hgb 15.9 (14.0-18.0) g/dl Hct 46.9 (42.0-52.0) % MCV 87.3 (80.0-98.0) fL MCH 29.6 (27.0-33.0) pg MCHC 33.9 (31.0-36.0) g/dl RDW 13.1 (11.0-16.0) % Plt Count 236 (160-400) X10*3/uL MPV 8.5 L (9.4-12.4) fL Immature Gran % (Auto) 0.2 (0.0-0.4) % Neut % (Auto) 51.5 (45-73) % Lymph % (Auto) 37.0 (20-40) % [place] % (Auto) 8.7 (2-11) % Eos % (Auto) 2.1 (0-4) % Baso % (Auto) 0.5 (0-2) % Lymph # (Auto) 3.0 (1.2-4.9) X10*3/uL [place] # (Auto) 0.7 (0.1-1.2) X10*3/uL Eos # (Auto) 0.2 (0.0-0.4) X10*3/uL Baso # (Auto) 0.0 (0.0-0.2) X10*3/uL Abs Immat Gran (auto) 0.02 (0.00-0.03) X10*3/uL Absolute Neuts (auto) 4.2 (2.0-8.3) x10*3/uL Absolute Nucleated RBC 0.000 (0.0-0.012) X10*3/uL Nucleated RBC % (auto) 0.0 (0.0-0.2) /100WBC Sodium 139 (135-145) mmol/L Potassium 4.0 (3.3-5.1) mmol/L Chloride 103 (96-108) mmol/L Carbon Dioxide 26 (22-29) mmol/L Anion Gap 14 (12-20) BUN 17 H (9-16) mg/dL Creatinine 0.86 (0.5-1.4) mg/dL Estim Creat Clear Calc 72.5 Estimated GFR > 60 Random Glucose 93 (60-115) mg/dL Calcium 10.1 (8.4-10.2) mg/dL Magnesium 2.5 (1.6-2.6) mg/dL Total Bilirubin 0.5 (0.0-1.0) mg/dL Direct Bilirubin 0.1 (0.0-0.5) mg/dL AST 28 (5-37) U/L ALT 31 (0-40) U/L Alkaline Phosphatase 91 (39-117) U/L Troponin I High Sens < 2.7 (<3.5-35.0) ng/L Total Protein 7.1 (6.5-8.0) g/dL Albumin 4.3 (3.5-5.0) g/dL Lipase 16 (8-78) U/L Urine Color Yellow Urine Appearance Clear Urine pH 6.0 (5.0-9.0) Ur Specific [place] >= 1.030 H (1.005-1.025) Urine Protein Negative (Neg-Trace) mg/dL Urine Glucose (UA) Negative (Negative) mg/dL Urine Ketones 40 (Negative) mg/dL Urine Blood Negative (Negative) Urine Nitrite Negative (Negative) Ur Leukocyte Esterase Negative (Negative) COVID-19 (MARRY) Negative (Negative) COVID-19 Clin Com See Note Radiology Impression Discussion of test interpretation with radiology: I have reviewed the radiologist's reading. External Record Review External record reviewed: Inpatient record, Office record, Outpatient record, Prior outpatient labs, Prior outpatient radiology, Primary care record and Outside ED record Medications Administered Discontinued Medications Generic Name Dose Route Start Last Admin Trade Name Freq PRN Reason Stop Dose Admin Al Hydroxide/Mg Hydroxide 30 ml 05/20/24 18:45 05/20/24 18:52 Magnesium Hydrox/Alum Hydrox 30 Ml Oral.Susp PO 05/20/24 18:46 30 ml ONCE ONE Administration Dicyclomine HCl 20 mg 05/20/24 09:42 05/20/24 10:47 Dicyclomine Hcl 10 Mg Capsule PO 05/20/24 09:43 20 mg ONCE ONE Administration Sodium Chloride 1,000 mls @ 999 mls/hr 05/20/24 08:32 08/28/24 11:05 Ns IV 05/20/24 09:32 Infused .Q1H1M ONE Infusion Iohexol 85 ml 05/20/24 07:28 05/20/24 07:30 Iohexol 350 Mg/Ml 100 Ml Infus..Btl IV 05/20/24 07:29 85 ml ONCE ONE Administration Lidocaine HCl 15 ml 05/20/24 18:45 05/20/24 18:52 Lidocaine Hcl Viscous 2 % 15 Ml Solution MUCOUS MEM 05/20/24 18:46 15 ml ONCE ONE Administration Lorazepam 2 mg 05/20/24 22:34 05/20/24 22:39 Lorazepam 1 Mg Tablet PO 05/20/24 22:35 2 mg ONCE ONE Administration Lorazepam 2 mg 05/21/24 08:06 05/21/24 08:13 Lorazepam 1 Mg Tablet PO 05/21/24 08:07 2 mg ONCE ONE Administration Morphine Sulfate 4 mg 05/20/24 06:45 05/20/24 06:50 Morphine Sulfate 4 Mg/Ml Cartridge IVPUSH 05/20/24 06:46 4 mg ONCE ONE Administration Protocol Morphine Sulfate 4 mg 05/20/24 09:42 05/20/24 10:48 Morphine Sulfate 4 Mg/Ml Cartridge IVPUSH 05/20/24 09:43 4 mg ONCE ONE Administration Protocol Ondansetron HCl 4 mg 05/20/24 06:14 05/20/24 06:26 Ondansetron Hcl 4 Mg/2 Ml Vial IVPUSH 05/20/24 06:15 4 mg ONCE ONE Administration Discharge Plan Discharge Clinical Impression: Abdominal pain, IBS (irritable bowel syndrome) Instructions: Abdominal Pain (ED) Additional Instructions: Please continue taking all at-home medications as prescribed. Please follow-up with your GI specialist, call today to make an appointment. Take pain medication as prescribed. Stick to a bland diet including but in his, rice, applesauce, gluten free toast, yogurt. If any new or worsening symptoms occur including but not limited to worsening pain, inability to eat or drink secondary to worsening pain, please return for re-evaluation. Prescriptions: No Action levalbuterol HCl 1.25 mg/3 mL solution for nebulization 1.25 mg inhalation BID 30 Days Qty: 180 11RF fluticasone furoate-vilanterol [Breo Ellipta] 200-25 mcg/dose blister with device 1 inh inhalation DAILY 30 Days Qty: 60 11RF levalbuterol tartrate 45 mcg/actuation HFA aerosol inhaler 2 puff inhalation Q4H PRN (Reason: for wheezing) Qty: 15 9RF lorazepam 1 mg tablet 1 tab PO TID PRN (Reason: Anxiety) cholecalciferol (vitamin D3) [Vitamin D3] 25 mcg (1,000 unit) Tablet 50 mcg PO DAILY polyethylene glycol 3350 [Miralax] 17 gram/dose Powder 17 g PO DAILY famotidine 20 mg Tablet 10 mg PO BID 30 Days Qty: 30 0RF omeprazole 20 mg capsule,delayed release(DR/EC) 20 mg PO DAILY 30 Days Qty: 30 0RF dicyclomine 10 mg capsule 20 mg PO TIDAC PRN (Reason: gastric discomfort) nortriptyline 25 mg capsule 25 mg PO BEDTIME Pulmicort Flexhaler 90 mcg/actuation aerosol powdr breath activated 1 inh inhalation BID (DME) blood pressure test kit-medium Kit See Rx Instructions .Route Qty: 1 0RF Rx Instructions: As directed amlodipine 5 mg tablet 5 mg PO DAILY (DME) Oxygen Home Use Kit See Rx Instructions .ROUTE Rx Instructions: As directed (DME) nebulizers [facility] See Rx Instructions .ROUTE Rx Instructions: As directed Print Language: [place]
--- NOTE | 2024-05-20 06:46 | ECG_ITS ---
Test Reason : abdominal pain Blood Pressure : / mmHG Vent. Rate : 093 BPM Atrial Rate : 093 BPM P-R Int : 140 ms QRS Dur : 088 ms QT Int : 346 ms P-R-T Axes : 078 056 068 degrees QTc Int : 430 ms Normal sinus rhythm Normal ECG When compared with ECG of 19-MAR-2023 14:31, No significant change was found Referred By: Gissel Goodwin Electronically Signed By:DOMINIC TERRAZAS
[2024-05-20 06:48] LABS: Alanine Aminotransferase 31 U/L (0-40); Albumin Level 4.3 g/dL (3.5-5.0); Alkaline Phosphatase 91 U/L (39-117); Anion Gap 14 (12-20); Aspartate Amino Transferase 28 U/L (5-37); Bilirubin Direct 0.1 mg/dL (0.0-0.5); Bilirubin Total 0.5 mg/dL (0.0-1.0); Blood Urea Nitrogen 17 mg/dL (9-16); Calcium 10.1 mg/dL (8.4-10.2); Carbon Dioxide 26 mmol/L (22-29); Chloride 103 mmol/L (96-108); Creatinine Clr Calc Pharmacy 72.5; Estimated Glomerular Filt Rate > 60; Glucose Random 93 mg/dL (60-115); Lipase 16 U/L (8-78); Magnesium 2.5 mg/dL (1.6-2.6); Sodium 139 mmol/L (135-145); Total Protein 7.1 g/dL (6.5-8.0)
[2024-05-20] MEDS: Morphine Sulfate 4 MG/ML CARTRIDGE IVPUSH ×2 (06:50→10:48)
[2024-05-20] MEDS: iohexoL 350 MG/ML 100 ML INFUS..BTL 85 ML IV (07:30)
[2024-05-20 07:35] LABS: Troponin-I High Sensitivity < 2.7 ng/L (<3.5-35.0)
[2024-05-20 08:02] LABS: Appearance Urine Clear; Color Urine Yellow; Glucose Urine UA Negative (Negative); Leukocyte Esterase Urine Negative (Negative); Nitrite Urine Negative (Negative); Specific Gravity - Urine >= 1.030 (1.005-1.025); Urine Blood Negative (Negative); Urine Ketones 40 mg/dL (Negative); Urine Protein Negative (Neg-Trace)
[2024-05-20 08:48] VITALS: BP 149/94; PULSE 100; RESP 20; TEMP 36.8; O2SAT 100
[2024-05-20] MEDS: 0.9 % Sodium Chloride 1,000 ML 999 ML IV (08:48)
[2024-05-20] MEDS: Dicyclomine HCl 10 MG CAPSULE 20 MG PO (10:47)
[2024-05-20 10:48] VITALS: RESP 20
--- NOTE | 2024-05-20 11:56 | PC.NURSE ---
Pt. gives permission to speak with sister, Marily.
[2024-05-20 12:31] VITALS: BP 124/91; PULSE 103; RESP 18; TEMP 36.8; O2SAT 96
--- NOTE | 2024-05-20 15:35 | PC.NURSE ---
PA discussed discharge with pt. Pt. is now requesting a PT evaluation d/t ambulation safety concerns.
--- NOTE | 2024-05-20 18:12 | MHC.CM.ED ---
Addendum entered by Tracy Vences 05/20/24 19:35: HCP reviewed, completed and signed. Copies given. Uploaded into [employer] and [facility]. HCP Emeka Arciniegamerrill ([phone]). Addendum entered by Tracy Vences 05/20/24 18:28: Pt is requesting pain medication. RN aware. Provider aware. Pt states if my pain is pretend pain, then why haven't I seen a psychiatrist. Provider aware of conversation. Will order GI cocktail and pain med. Will hold on psych consult. Pt is agreeable to completing a HCP. Original Note: CM met with patient at the request of Gissel GARCIA. Pt is A&Ox4. Pt is upset that he is not being admitted. States I'm on morphine . CM explained that his medical work-up is negative and he does not meet criteria for admission. CM offered to have provider come ane speak with him. Pt is frustrated in that his GI specialist and the people at [facility] seem to think his pain is in his head. CM allowed patient to vent his feelings. Pt is agreeable to PT, however does not use any DME, except for oxygen prn at 2L. [facility] provides his oxygen. Pt has no services at home. Lives with his spouse, Emeka Howe ([phone]). PCP is verified. Address and insurance verified. Pt has [employer] ([facility]) and medicare. CM explained that PT may recommend no skill (no PT needed), home PT or PT is a facility. Pt again expressed frustration that PT will not help his abd pain and what will he do about pain medication. Pt was taking oxycodone at home. CM asked if pt wanted to remain for a PT consult. Pt is agreeable. No referrals placed at this time. Primary RN aware that patient is requesting more pain medication. Provider aware. Pt does not meet criteria for admission. CM will follow for discharge needs.
--- NOTE | 2024-05-20 18:29 | PC.NURSE ---
Pt. requesting pain medication. RADHA Roland to order GI cocktail to address root cause of pt.'s pain.
[2024-05-20] MEDS: Lidocaine HCl Viscous 2 % 15 ML SOLUTION MUCOUS MEM (18:52)
[2024-05-20] MEDS: Magnesium Hydrox/Alum Hydrox 30 ML ORAL.SUSP PO (18:52)
[2024-05-20] MEDS: LORazepam 1 MG TABLET 2 MG PO (22:39)
[2024-05-20 22:41] VITALS: BP 141/78; PULSE 108; RESP 22; TEMP 36.7; O2SAT 92
[2024-05-21 01:52] LABS: COVID-19 Test Negative (Negative); IDNOW Serial# 6674DD1D
[2024-05-21 07:08] VITALS: BP 113/90; PULSE 94; RESP 18; TEMP 36.6; O2SAT 94
--- NOTE | 2024-05-21 07:45 | PC.NURSE ---
Resumed care of pt at 0700. Pt resting in bed quietly, a/ox4, lung sounds cta bilaterally, no increased wob/sob noted, S1 and S2 heard, no c/o cp at this time, abdomen soft/non-tender, pt states no abdominal pain. Pt given breakfast tray. Pt updated on plan for PT/CM eval for rehab d/t unsteady ambulation, pt in agreement. Vital signs updated, call ovalle within reach, all needs met at this time.
--- NOTE | 2024-05-21 07:47 | PC.NURSE ---
Physical therapy at bedside for evaluation.
[2024-05-21 08:00] VITALS: BP 123/83; PULSE 120; RESP 20; TEMP 36.4; O2SAT 95
[2024-05-21] MEDS: LORazepam 1 MG TABLET 2 MG PO (08:13)
[2024-05-21 08:22] VITALS: PULSE 120
--- NOTE | 2024-05-21 10:44 | MHC.CM.ED ---
Patient remains in ER. Physical therapy eval completed. Home therapy vs outpatient therapy is recommended. Met with patient in regards to discharge planning. Therapy options discussed. Patient would like to d/c home with outpatient therapy arranged. Patient aware case management will reach out to PCP's office to arrange outpatient therapy. Patient's , Emeka will transport patient home. Patient, Glenna RAUSCH and Dyan GARCIA aware. Continue to monitor for d/c needs.
--- NOTE | 2024-05-21 11:06 | PHA.MEDREC ---
Pharmacy Consult ? Medication Reconciliation Pharmacy has completed the medication reconciliation.
[2024-05-21 11:49] VITALS: BP 110/90; PULSE 100; RESP 18; TEMP 36.6; O2SAT 98
--- NOTE | 2024-05-21 11:52 | PC.NURSE ---
0930 meds not given d/t being unverified. Pt d/c home.
== END 2024-05-21 11:50 | disposition home or self-care (01) ==
PROVIDERS: Emergency Medicine; Physician Assistant Medical; Emergency Provider Emergency Medicine Emergency Medical Services; PCP Internal Medicine
DX: R10.9 Unspecified abdominal pain (principal); K58.9 Irritable bowel syndrome, unspecified; R53.1 Weakness; R00.0 Tachycardia, unspecified; Z11.52 Encounter for screening for COVID-19
CPT/HCPCS: 36415; 74177; 80048; 80076; 81003; 83690; 83735; 84484; 85025; 87635; 93005; 97161; 99285; J2270; J2405; Q9967

== ENCOUNTER 2024-07-13 14:01 | Outpatient (AMB) | payer OTHER, MEDICARE, SELFPAY ==
[2024-07-13 14:11] VITALS: BP 110/70; PULSE 90; O2SAT 97; BMI 29.0
--- NOTE | 2024-07-13 14:11 | A.OFFVIS_ITS ---
Vital Signs 07/13/24 14:11 Height 5 ft 6 in Weight 179 lb 10.828 oz BMI 29.0 BP 110/70 Blood Pressure Location Lt brachial Position Sitting Pulse 90 Pulse Source Pulse Oximeter Pulse Oximetry (%) 97 Oxygen Delivery Method Room Air Intake Visit Reasons: COPD Ict Developer Required: No Allergies lamotrigine [From LAMICTAL] Allergy (Severe, Verified 07/13/24 14:14) agitation and anxiety with titration codeine [CODEINE] Allergy (Intermediate, Verified 07/13/24 14:14) INSOMNIA Penicillins [PENICILLINS] Allergy (Intermediate, Verified 07/13/24 14:14) RASH epinephrine [EPINEPHRINE] Adverse Reaction (Intermediate, Verified 07/13/24 14:14) Hypertension escitalopram [From LEXAPRO] Adverse Reaction (Intermediate, Verified 07/13/24 14:14) NIGHTMARES sertraline [From ZOLOFT] Adverse Reaction (Intermediate, Verified 07/13/24 14:14) NIGHTMARES sulfamethoxazole [From BACTRIM] Adverse Reaction (Intermediate, Verified 07/13/24 14:14) STOMACH UPSET HPI Comments Details: The patient is a 74-year-old gentleman known COPD and also depression. I did have the pleasure meeting him while he was in these [facility] trachea trach unit. He was following up with [place] fish processor. He decided to transfer his care over to [facility]. Overall he still continues to have significant shortness of breath. His sister see with him because she is concerned. His symptoms about moderate severity. He also complains of productive cough. He has been using Symbicort. He does have increased but is unlikely because of the powder gag exam. Therefore he stopped using it. He also has a rescue inhaler that he uses on a daily basis. He did have pulmonary function studies at some point. Here in the office we did taken for 6 minutes walk test the patient did qualify for oxygen. The patient is interested in pulmonary rehabilitation and therefore will looking to repeating his pulmonary function studies to get him approved for at. In the meantime he is still smoking. He has a greater than 30 pack-year history of smoking. Therefore he will be a great candidate for the lung cancer screening program. He did have his pulmonary function studies and also underwent a CT scan of the chest low-dose protocol demonstrated no significant changes except for extensive emphysema and small pulmonary nodules. He did have a CT scan of the chest to the lung cancer screening program. Demonstrated emphysema along with 1 mm pulmonary nodule. He have another CT scan in a year's time in October of 2020. 01/13/2024 the patient is here for a pulmonary follow-up visit. The patient has been having some difficulty with his inhalers. Initially he was on Symbicort Spiriva that were working well. Then the Symbicort was not available and he was placed on Breztri, but, that not work for him. Therefore he was switched over to Dulera and Spiriva. This appears to be helpful but seems like the Dulera back order and he can not get enough medication. And is struggling with that. The patient is also concerned about the inhaled cortical steroids. He does get tearful at times he does have an issue with mood disorder. He is wondering there is a way that the steroids can be decreased or stopped. I did encourage him to continue the steroid although will switch him to a inhaled steroid monotherapy inhaler and therefore the dose could be adjusted accordingly. In addition to that he is responded well to the Respimat device and therefore will switch him over to Stiolto. He has been using the oxygen with good effect. The oxygen concentrator has been affecting beneficial he continues participating in pulmonary rehabilitation at this time. 02/14/2024 the patient is here for a pulmonary follow-up visit. The patient has been having a hard time with his inhalers. He is pretty upset. He responded very well to the Symbicort after multiple trials he finally find a regimen that will work for him. He uses Symbicort and Spiriva. But, then his insurance will no longer cover the Symbicort and we switched him over to Breztri which she did not tolerate causing hoarseness and fatigue. Then, the patient try Breo and could not tolerate the powder. We switched him over to Dulera and he did not feel like it worked same way. Now he wants to go back on Symbicort. Will go ahead and request a prior approval to get him back on Symbicort since it was the only inhaler that has been affecting beneficial without significant adverse effects. He is very sensitive due to the inhalers due to his psychiatric his tory. Therefore, agree that we should try to get him covered on Symbicort. He so concerned because of his advanced COPD that is willing to pay [id number] for the Symbicort which is not sustainable. Continues use the oxygen with good effect. Otherwise will follow-up in 3-4 months. If he has any issues or if you have some difficulties getting him the medication then will discuss it further. 04/09/2024 the patient is here for a pulmonary follow-up visit. Overall he is doing fair. He is still having difficulty with breathing. Also having issues with sinusitis. After doing some research on his own he figured out that the Spiriva may be causing his sinusitis. Therefore he opts not to take it. He has been on multiple inhalers, but, some of them causing him to have adverse effects. He realized after using multiple inhalers that Breo will be his best option. Therefore I will send him Breo 100 mcg the pharmacy where he would use it once a day. He will stop the Spiriva at this time. The patient also has a nebulizer that he can use as needed. As far as sinusitis he has 2 course of antibiotics. Hopefully he starts feeling better. Will provide him some nasal sprays to help him with the nasal congestion and the sinus inflammation. The patient is also off the prednisone which is reassuring. Remind imaging studies standpoint the patient is participating in the lung cancer screening program. He just had a CT scan that we personally reviewed although has not been officially read. He has extensive emphysema but no worsening nodular densities to appreciate. 07/13/2024 the patient is here for a pulmonary follow-up visit. Overall he is doing a little better. He is tolerating the Pulmicort along with the Spiriva. The patient is also using the Xopenex as needed. Seems to be working for him. He feels like he needs additional bronchodilation her. He is trying failed multiple inhalers. I do believe Atrovent short-acting beta agonist would be a good option that he can use because of his issues with intolerance to beta agonist therapy. Will going to go ahead and requested at the pharmacy. May have to do a prior approval. If he tolerates the Atrovent then he can back off on the Xopenex that he is using frequently. The patient is also using the oxygen therapy with good effect. He is also using the PAP therapy with good effect. In the recent imaging studies to review at this time. He did have a CT chest through LDCT. RADS 1. He does have significant calcified Aortic valve. We will request an ECHO at this time. [facility] Medical History (Updated 05/22/24 @ 00:01 by Laury Gipson) CAD (coronary artery disease) Abnormal nuclear stress test Hypertension HLD (hyperlipidemia) Pneumonitis Chronic respiratory failure COPD (chronic obstructive pulmonary disease) Asthma Pulmonary nodule COVID-19 vaccine series completed Personal history of nicotine dependence Hx of small bowel obstruction Tardive dyskinesia Panic disorder History of major depression Generalized anxiety disorder IBS (irritable bowel syndrome) GERD (gastroesophageal reflux disease) Surgical History Stented coronary artery Hx of colonoscopy H/O bilateral inguinal hernia repair Hx of cholecystectomy Family History Father No problems noted. Mother No problems noted. Social History Household Members: Spouse and Children Household Members Other:: Emeka Housing: House Are you a primary care rep to a significant other at home: No Do you presently have visiting nurse or other home services: No Unable to assess alcohol history related to: Unknown Alcohol intake: never Comment: patient stable on ambulation Patient Tobacco Use Status: Former Tobacco user Tobacco use type: Cigarette Years Smoked: 35 e-Cigarette/Vaping Use: Never Used Second Hand Smoke Exposure: No service: No Sexual orientation: Lesbian/Triana/Homosexual Review of Systems Const Denies daytime sleepiness, Reports difficulty sleeping and Denies night sweats ENT Denies change in voice, Reports dry mouth, Denies mouth pain, Reports nasal congestion, Reports nasal discharge and Reports nasal obstruction Card Denies chest pain, Reports dyspnea and Reports dyspnea on exertion Resp Reports cough, Denies pain on inspiration, Denies pain with cough, Reports dyspnea, Reports dyspnea on exertion and Reports wheezing GI Denies abdominal pain Musc Denies no additional complaints and Reports abnormal gait Neuro Reports abnormal gait Psych Reports depression, Denies homicidal ideation and Denies suicidal ideation Ross/Lymph Denies easy bleeding and Denies lymphadenopathy Aller/Immun Reports wheezing Physical Exam Vital Signs: Last Vital Signs Pulse 90 07/13/24 14:11 BP 110/70 07/13/24 14:11 Pulse Ox 97 07/13/24 14:11 Oxygen Delivery Method Room Air 07/13/24 14:11 BMI result Body Mass Index 29.0 Const General: alert Nutritional Appearance: thin Neck Neck: Yes normal visual inspection, Yes full ROM and Yes no lymphadenopathy Chest Chest palpation & inspection: normal inspection of the chest, no localized rib tenderness and no tenderness Resp Effort & Inspection: normal respiratory effort Auscultation: no crackles, no rales, no rhonchi and diminished lung sounds Cardio Rate: regular rate Rhythm: regular rhythm Heart sounds: S1 normal heart sound present and S2 normal heart sound present GI Palpation (GI): Soft to palpation and nontender Auscultation: normal bowel sounds Skin General skin exam: rashes and/or lesions noted Results Reviewed Results Reviewed: [place] [address] CT Scan Report Signed Patient: Jameel Cameron MR#: [id number] : 1950 Acct:[id number] Age/Sex: 74 / M ADM Date: 03/31/24 Loc: HO.CT Attending Dr: Yvonne Berkowitz PA-C Ordering Physician: Yvonne Berkowitz PA-C Date of Service: 03/31/24 Procedure(s): CT lung screening Accession Number(s): [id number] cc: Jacob Loza MD; Yvonne Berkowitz PA-C~ EXAMINATION: CT LOW-DOSE SCREENING CHEST WITHOUT CONTRAST CLINICAL INFORMATION: Personal history of nicotine dependence. The patient has a 30 pack-year history of smoking, having quit 4 years ago. COMPARISON: Multiple prior CT scans of the chest, the most recent of which is dated 08/10/2022 and the most remote of which is dated 11/11/2019. TECHNIQUE: Multidetector volumetric CT imaging of the chest is performed on a Siemens SOMATOM Definition scanner without contrast using low dose technique. Additional 2D coronal and sagittal reformatted images and axial 3D maximum intensity projection (MIP) images are generated on the CT workstation. This CT examination was performed using dose optimization techniques as appropriate, variously including the following: *Automated exposure control *Adjustment of mA and/or kV according to patient size (this includes techniques or standardized protocols for targeted exams where dose is matched to indication/reason for exam; i.e. extremities or head) *Use of iterative reconstruction technique TOTAL EXAM DLP: 43 mGy-cm. CTDIvol: 1.28 mGy. FINDINGS: PULMONARY NODULES: -3 mm calcified granuloma right apex, unchanged. There are a few additional scattered tiny 1-2 mm granulomata, stable, most notable in the right lower lobe. -Nodular reticular area in the superior segment right lower lobe, anterolateral aspect abutting the major fissure, stable from prior exams and benign (Series 6, image 312). -No new or enlarging nodules. LUNGS: -Severe centrilobular emphysema with upper lobe predominance and apical bullous changes, similar. -Mild bronchial and small airways thickening throughout both lungs suggesting bronchitis. Mild bronchiectasis in the lower lobe distributions. -There is some reticular scarring in the right base. -No consolidations or abnormal groundglass opacities. -No pleural effusions or pleural abnormalities. MEDIASTINUM: -No adenopathy present. -Aorta normal in caliber with moderate calcification. -Main pulmonary artery normal in size. -Heavy aortic valvular calcifications, which can be seen with bicuspid valve. -Normal heart size. -Esophagus normal aside from a small type I hiatus hernia. -No pericardial effusion. CORONARY ARTERY CALCIFICATION: Mild to moderate three-vessel calcifications. THYROID GLAND: Probable nodule in the lower isthmus measuring 8 mm. Otherwise normal. CHEST WALL/AXILLA: No adenopathy or mass. UPPER ABDOMEN: -Prior cholecystectomy. Calcific atheromatous changes of the imaged abdominal aorta and splenic artery. -Normal adrenal glands. OSSEOUS STRUCTURES: No suspicious focal findings. CT/CT lung screening IMPRESSION: -Stable examination. No new or enlarging lung nodules. Stable scattered calcific granulomata. -Severe emphysema. No definite active lung disease. - Diffuse bronchial wall thickening with bronchiectasis in the bilateral lower lobes, findings suggesting bronchitis. -Heavy calcification of the aortic valve leaflets, findings which could suggest bicuspid valve and likely aortic stenosis. Correlation with echo may be of benefit. -Additional ancillary findings as discussed. ASSESSMENT: 1. Lung-RADS Category 2: Benign appearance or behavior of nodules. 2. Lung-RADS Category S: Negative. RECOMMENDATION: Continued routine annual low-dose CT lung screening in 1 year is recommended. An order for CT CHEST LOW DOSE CANCER SCREENING ([id number]) can be placed. Dictated By: Ramana Velasquez MD Signed By: <Electronically signed by Ramana Velasquez MD in OV> 05/04/24 0849 DD/ [id number] TD/TT: Director [employer]: Assessment & Plan Assessment & Plan (1) COPD (chronic obstructive pulmonary disease): Code(s): J44.9 - Chronic obstructive pulmonary disease, unspecified Category: Medical Qualifiers: COPD type: emphysema Emphysema type: centrilobular Qualified Code(s): J43.2 - Centrilobular emphysema (2) PREMA (obstructive sleep apnea): Code(s): G47.33 - Obstructive sleep apnea (adult) (pediatric) Category: Medical (3) Chronic respiratory failure: Comment: The significant emphysema, chronic stable COPD Code(s): J96.10 - Chronic respiratory failure, unspecified whether with hypoxia or hypercapnia Category: Medical Qualifiers: Respiratory failure complication: hypoxia Qualified Code(s): J96.11 - Chronic respiratory failure with hypoxia (4) Pulmonary nodule: Code(s): R91.1 - Solitary pulmonary nodule Category: Medical Plan stop Symbicort 160/4.52 puffs twice a day. (failed Breo,Dulera,Breztri, advair, stiolto, Asmanex, Trelegy, Breo, does not tolerate powdered inhalers) continue pulmomicort Spiriva 2 inhalation Add Atrovent as needed continue oxygen supplementation during the daytime BRINA as needed (xopenex) ECHO to assess aortic valve pulmonary rehabilitation. continue PAP therapy nasal therapy LDCT program follow-up in 3-4 months Orders: Orders CA echo transthoracic complete Today I27.20 - Pulmonary hypertension, unspecified Medications: New ipratropium bromide 17 mcg/actuation (Atrovent HFA) 2 puffs inhalation QID 30 days 12.9 grams 0RF Coding Level of Care Code Est Pt Level 4 (84747) Complex EM visit Add On G2211 Diagnoses Centrilobular emphysema J43.2 COPD type: emphysema Emphysema type: centrilobular PREMA (obstructive sleep apnea) G47.33 Chronic respiratory failure with hypoxia J96.11 Respiratory failure complication: hypoxia Pulmonary nodule R91.1 Time Spent (min) 17
== END 2024-07-13 14:45 | disposition home or self-care (01) ==
PROVIDERS: PCP Internal Medicine; Visit Provider Hospitalist
DX: J43.2 Centrilobular emphysema (principal); G47.33 Obstructive sleep apnea (adult) (pediatric); J96.11 Chronic respiratory failure with hypoxia; R91.1 Solitary pulmonary nodule
CPT/HCPCS: 99214

== ENCOUNTER → 2024-07-13 14:01 | Outpatient (BNVA) | payer OTHER, MEDICARE, SELFPAY | PROVIDERS: PCP Internal Medicine; Visit Provider Hospitalist ==

== ENCOUNTER → 2024-08-06 13:08 | Outpatient (REF) | payer OTHER, MEDICARE, SELFPAY ==
--- NOTE | 2024-08-06 13:11 | CA_ITS ---
Transthoracic Echocardiogram Patient (Last, First, Middle): Jameel Cameron R Gender: Male Date of : 1950 Age: 74 Procedure Date: 08/06/2024 Procedure Type: Transthoracic Echocardiogram Location: OP Height: 167.64 cm Weight: 72.58 kg BSA: 1.82 m2 Heart Rate: 106 bpm BP: 110 / 70 mmHg Trailer Rental Clerk: STEVE Referring MD: Bam Torres MD Arboriculture Instructor: Servando Puga MD Symptoms: I27.20 - Pulmonary hypertension, unspecified Study Quality: Technically Difficult ECG Rhythm: Tachycardia Conclusions: - 1. Technically difficult study 2. Normal LV ejection fraction 60-65% 3. At least mild aortic stenosis Findings Procedure Information Contrast agent, definity, is being given per protocol without apparent complications. Left Ventricle Normal left ventricular size, thickness, and systolic function. The visually estimated ejection fraction is between 60-65%. Regional wall motion abnormalities can not be excluded due to suboptimal endocardial definition. Spectral Doppler is indicative of an impaired relaxation filling pattern. Right Ventricle The right ventricle was not well visualized. Atria The left atrium was not well visualized. Interatrial shunt cannot be excluded. The right atrium was not well visualized. Aortic Valve There is moderate calcification of the aortic valve. There is mild aortic valve stenosis. There is no aortic valve regurgitation. Mitral Valve The mitral valve was not well visualized. Pulmonic Valve The pulmonic valve was not well visualized. Tricuspid Valve The tricuspid valve was not well visualized. Tricuspid regurgitation envelope is inadequate for calculation of right ventricular systolic pressure. Great Vessels The aorta was not well visualized. The pulmonary artery was not well visualized. Venous The inferior vena cava is normal in size. Pericardium/Pleural The pericardium was not well visualized. Measurements 2D Linear Measurements IVSd: 0.67 0.6-0.9/0.6-1.0 cm LVIDd: 3.59 3.9-5.3/4.2-5.9 cm LVIDd Index: 1.97 2.4-3.2/2.2-3.1 cm/m2 LVIDs: 2.17 2.0-3.6 cm LVPWd: 0.79 0.7-1.1 cm LA Diam: 2.90 2.7-3.8/3.0-4.0 cm LAIDs Index: 1.59 1.5-2.3 cm/m2 LV Mass: 85.26 67-162/88-224 g LV Mass Index: 46.85 43-95/49-115 g/m2 LVOT Diam: 1.90 3.0+(-)1.3 cm 2D Systolic Function EF 4C: 65.90 >55% Mitral Valve MV Pk E: 0.60 MV PK A: 0.96 MV Decel Time: 294.00 E/A: 0.60 E'Lateral: 7.29 E'Medial: 7.40 E/E' Med: 8.10 E/E' Lat: 8.20 PHT: 86.00 MVA PHT: 2.56 Decel Price: 2.02 Aortic Valve AoV Pk Rober: 1.93 AoV Mn Rober: 1.38 AoV VTI: 0.32 AoV Pk Grad: 15.00 Aov Mn Grad: 9.00 DAMIÁN Cont.VTI: 1.47 LVOT LVOT Pk Rober: 0.92 LVOT Mn Rober: 0.65 LVOT VTI: 0.16 LVOT Pk Grad: 3.00 LVOT Mn Grad: 2.00 LVOT Diam: 1.90 LVOT Area: 2.84 Diastolic Function MV Pk E: 0.60 MV Pk A: 0.96 E/A: 0.60 E'Medial: 7.40 E/E' Med: 8.10 E' Laterial: 7.29 E/E' Lat: 8.20 Right Ventricle TAPSE (mm): 16.80 TVS' Rober: 9.46 Tricuspid Valve RA Press: 3.00 Great Vessels Aorta Sinus of Valsalva: 3.80 2.0-3.5 cm Pulmonary Valve PV Pk Rober: 1.76 Peak PV Grad: 12.00 Updated in Other Vendor System with Status of Final Servando Puga MD electronically signed on 08/07/2024 8:25:25 AM with status of Final
== END ==
LOC: HO.CARD 13:08
PROVIDERS: PCP Internal Medicine; Visit Provider Hospitalist
DX: I27.20 Pulmonary hypertension, unspecified (principal)
CPT/HCPCS: 93306; Q9957

== ENCOUNTER → 2024-08-06 13:11 | Outpatient (BNV) | payer OTHER, MEDICARE, SELFPAY | PROVIDERS: PCP Internal Medicine; Visit Provider Internal Medicine Cardiovascular Disease | DX: I35.0 Nonrheumatic aortic (valve) stenosis (principal) | CPT/HCPCS: 93306 ==

== ENCOUNTER 2024-08-18 13:55 | Outpatient (RCR) | payer OTHER, MEDICARE, SELFPAY ==
--- NOTE | 2024-09-07 15:33 | MHC.PT.DC ---
[facility] [place] Office [place] Office [place] Office [address] Abiel Haley [address] [facility] [phone] F: [phone] F: [phone] F: [phone] F: [phone] Physical Therapy Discharge Report Diagnosis: COPD exacerbation (RL) Date of Surgery: N/A Date of Evaluation: 07/29/24 Date of Discharge: 09/07/24 Treatments to Date: 3 Cancellations to Date: 0 No Shows to Date: 0 Discharge Status: Discharge Summary: The patient was cleared regarding his balance to return to pulmonary rehab. He is discharged from this physical therapy plan of care. Electronically signed by: Susan Messina PT, DPT Please sign and return to therapist. Thank you for your referral.
== END 2024-09-07 15:33 | disposition home or self-care (01) ==
LOC: HO.PT 13:55
PROVIDERS: PCP Internal Medicine; Visit Provider Internal Medicine
DX: R26.81 Unsteadiness on feet (principal)
CPT/HCPCS: 97110; 97112; 97161; 97535

== ENCOUNTER 2024-09-01 13:52 | Outpatient (AMB) | payer OTHER, MEDICARE, SELFPAY ==
--- NOTE | 2024-09-01 13:55 | A.OFFVIS_ITS ---
Vital Signs 09/01/24 13:56 Weight 155 lb 6.814 oz BP 110/64 Blood Pressure Location Lt brachial Position Sitting Pulse 108 H Pulse Source Pulse Oximeter Pulse Oximetry (%) 94 Oxygen Delivery Method Room Air Intake Visit Reasons: COPD Allergies lamotrigine [From LAMICTAL] Allergy (Severe, Verified 09/01/24 14:01) agitation and anxiety with titration codeine [CODEINE] Allergy (Intermediate, Verified 09/01/24 14:01) INSOMNIA Penicillins [PENICILLINS] Allergy (Intermediate, Verified 09/01/24 14:01) RASH epinephrine [EPINEPHRINE] Adverse Reaction (Intermediate, Verified 09/01/24 14:01) Hypertension escitalopram [From LEXAPRO] Adverse Reaction (Intermediate, Verified 09/01/24 14:01) NIGHTMARES sertraline [From ZOLOFT] Adverse Reaction (Intermediate, Verified 09/01/24 14:01) NIGHTMARES sulfamethoxazole [From BACTRIM] Adverse Reaction (Intermediate, Verified 09/01/24 14:01) STOMACH UPSET Medication List - Last Reconciled 09/01/24 by Janice Ro LPN amlodipine 5 mg PO DAILY blood pressure test kit-medium As directed budesonide 90 mcg/actuation (Pulmicort Flexhaler) 1 inh inhalation BID cholecalciferol (vitamin D3) (Vitamin D3) 50 mcg PO DAILY dicyclomine 20 mg PO TIDAC PRN famotidine 10 mg (1/2 x 20 mg) PO BID 30 days ipratropium bromide 17 mcg/actuation (Atrovent HFA) 2 puffs inhalation QID 30 days levalbuterol HCl 1.25 mg (3 mL) inhalation BID 30 days levalbuterol tartrate 45 mcg/actuation 2 puffs inhalation Q4H PRN lorazepam 1 tab PO TID PRN nebulizers As directed nortriptyline 25 mg PO BEDTIME Oxygen Home Use As directed polyethylene glycol 3350 (Miralax) 17 grams PO DAILY tiotropium bromide 2.5 mcg/actuation (Spiriva Respimat) 2 inhalations inhalation DAILY 30 days HPI Comments Details: The patient is a 74-year-old gentleman known COPD and also depression. I did have the pleasure meeting him while he was in these [facility] trachea trach unit. He was following up with [facility]. He decided to transfer his care over to [facility]. Overall he still continues to have significant shortness of breath. His sister see with him because she is concerned. His symptoms about moderate severity. He also complains of productive cough. He has been using Symbicort. He does have increased but is unlikely because of the powder gag exam. Therefore he stopped using it. He also has a rescue inhaler that he uses on a daily basis. He did have pulmonary function studies at some point. Here in the office we did taken for 6 minutes walk test the patient did qualify for oxygen. The patient is interested in pulmonary rehabilitation and therefore will looking to repeating his pulmonary function studies to get him approved for at. In the meantime he is still smoking. He has a greater than 30 pack-year history of smoking. Therefore he will be a great candidate for the lung cancer screening program. He did have his pulmonary function studies and also underwent a CT scan of the chest low-dose protocol demonstrated no significant changes except for extensive emphysema and small pulmonary nodules. He did have a CT scan of the chest to the lung cancer screening program. Demonstrated emphysema along with 1 mm pulmonary nodule. He have another CT scan in a year's time in October of 2020. 01/13/2024 the patient is here for a pulmonary follow-up visit. The patient has been having some difficulty with his inhalers. Initially he was on Symbicort Spiriva that were working well. Then the Symbicort was not available and he was placed on Breztri, but, that not work for him. Therefore he was switched over to Dulera and Spiriva. This appears to be helpful but seems like the Dulera back order and he can not get enough medication. And is struggling with that. The patient is also concerned about the inhaled cortical steroids. He does get tearful at times he does have an issue with mood disorder. He is wondering there is a way that the steroids can be decreased or stopped. I did encourage him to continue the steroid although will switch him to a inhaled steroid monotherapy inhaler and therefore the dose could be adjusted accordingly. In addition to that he is responded well to the Respimat device and therefore will switch him over to Stiolto. He has been using the oxygen with good effect. The oxygen concentrator has been affecting beneficial he continues participating in pulmonary rehabilitation at this time. 02/14/2024 the patient is here for a pulmonary follow-up visit. The patient has been having a hard time with his inhalers. He is pretty upset. He responded very well to the Symbicort after multiple trials he finally find a regimen that will work for him. He uses Symbicort and Spiriva. But, then his insurance will no longer cover the Symbicort and we switched him over to Breztri which she did not tolerate causing hoarseness and fatigue. Then, the patient try Breo and could not tolerate the powder. We switched him over to Dulera and he did not feel like it worked same way. Now he wants to go back on Symbicort. Will go ahead and request a prior approval to get him back on Symbicort since it was the only inhaler that has been affecting beneficial without significant adverse effects. He is very sensitive due to the inhalers due to his psychiatric history. Therefore, agree that we should try to get him covered on Symbicort. He so concerned because of his advanced COPD that is willing to pay [id number] for the Symbicort which is not sustainable. Continues use the oxygen with good effect. Otherwise will follow-up in 3-4 months. If he has any issues or if you have some difficulties getting him the medication then will discuss it further. 04/09/2024 the patient is here for a pulmonary follow-up visit. Overall he is doing fair. He is still having difficulty with breathing. Also having issues with sinusitis. After doing some research on his own he figured out that the Spiriva may be causing his sinusitis. Therefore he opts not to take it. He has been on multiple inhalers, but, some of them causing him to have adverse effects. He realized after using multiple inhalers that Breo will be his best option. Therefore I will send him Breo 100 mcg the pharmacy where he would use it once a day. He will stop the Spiriva at this time. The patient also has a nebulizer that he can use as needed. As far as sinusitis he has 2 course of antibiotics. Hopefully he starts feeling better. Will provide him some nasal sprays to help him with the nasal congestion and the sinus inflammation. The patient is also off the prednisone which is reassuring. Remind imaging studies standpoint the patient is participating in the lung cancer screening program. He just had a CT scan that we personally reviewed although has not been officially read. He has extensive emphysema but no worsening nodular densities to appreciate. 07/13/2024 the patient is here for a pulmonary follow-up visit. Overall he is doing a little better. He is tolerating the Pulmicort along with the Spiriva. The patient is also using the Xopenex as needed. Seems to be working for him. He feels like he needs additional bronchodilation her. He is trying failed multiple inhalers. I do believe Atrovent short-acting beta agonist would be a good option that he can use because of his issues with intolerance to beta agonist therapy. Will going to go ahead and requested at the pharmacy. May have to do a prior approval. If he tolerates the Atrovent then he can back off on the Xopenex that he is using frequently. The patient is also using the oxygen therapy with good effect. He is also using the PAP therapy with good effect. In the recent imaging studies to review at this time. He did have a CT chest through LDCT. RADS 1. He does have significant calcified Aortic valve. We will request an ECHO at this time. 09/01/2024 the patient is here for a pulmonary follow-up visit. Overall , doing well. He is looking to get back to pulmonary rehabilitation. He continues on the Spiriva and also has been using the Pulmicort inhaler with good effect. He is also having to use his rescue inhaler about 3 times a day because he does not tolerate a long-acting 1. He does have adjuvant inhaler but he has to be careful not to take too much anticholinergic medications because of his history of anticholinergic syndrome. Therefore he will monitor closely for any adverse effects. The patient did have an echocardiogram which we personally reviewed demonstrating mild aortic stenosis. Although was a limited study. And he also had a CT scan of the chest demonstrating extensive emphysema primarily in the upper lung zones. His sister was with him. We did talk about alternative therapies including lung volume reduction intervention and also the risks that come with that. The patient will read up on it in decide later if he wants to pursue that. For now he is going to start rehab in going to continue with his current respiratory medications. She also continues use the noninvasive ventilator at nighttime. I am going to request a download from his [employer] and also access on air view. He does have a hard time transitioning from the ventilator to his oxygen so will see if we can any adjustments that we can make. [facility] Medical History (Updated 05/22/24 @ 00:01 by Laury Gipson) CAD (coronary artery disease) Abnormal nuclear stress test Hypertension HLD (hyperlipidemia) Pneumonitis Chronic respiratory failure COPD (chronic obstructive pulmonary disease) Asthma Pulmonary nodule COVID-19 vaccine series completed Personal history of nicotine dependence Hx of small bowel obstruction Tardive dyskinesia Panic disorder History of major depression Generalized anxiety disorder IBS (irritable bowel syndrome) GERD (gastroesophageal reflux disease) Surgical History Stented coronary artery Hx of colonoscopy H/O bilateral inguinal hernia repair Hx of cholecystectomy Family History Father No problems noted. Mother No problems noted. Social History Household Members: Spouse and Children Household Members Other:: Emeka Housing: House Are you a primary direct care provider to a significant other at home: No Do you presently have visiting nurse or other home services: No Unable to assess alcohol history related to: Unknown Alcohol intake: never Comment: patient stable on ambulation Patient Tobacco Use Status: Former Tobacco user Tobacco use type: Cigarette Years Smoked: 35 e-Cigarette/Vaping Use: Never Used Second Hand Smoke Exposure: No service: No Sexual orientation: Lesbian/Triana/Homosexual Review of Systems Const Denies daytime sleepiness, Reports difficulty sleeping and Denies night sweats ENT Denies change in voice, Reports dry mouth, Denies mouth pain, Reports nasal congestion, Reports nasal discharge and Reports nasal obstruction Card Denies chest pain, Reports dyspnea and Reports dyspnea on exertion Resp Reports cough, Denies pain on inspiration, Denies pain with cough, Reports dyspnea, Reports dyspnea on exertion and Reports wheezing GI Denies abdominal pain Musc Denies no additional complaints and Reports abnormal gait Neuro Reports abnormal gait Psych Reports depression, Denies homicidal ideation and Denies suicidal ideation Ross/Lymph Denies easy bleeding and Denies lymphadenopathy Aller/Immun Reports wheezing Physical Exam Vital Signs: Last Vital Signs Pulse 108 H 09/01/24 13:56 BP 110/64 09/01/24 13:56 Pulse Ox 94 09/01/24 13:56 Oxygen Delivery Method Room Air 12/10/24 13:56 Const General: alert Nutritional Appearance: thin Neck Neck: Yes normal visual inspection, Yes full ROM and Yes no lymphadenopathy Chest Chest palpation & inspection: normal inspection of the chest, no localized rib tenderness and no tenderness Resp Effort & Inspection: normal respiratory effort and prolonged expiratory phase Auscultation: no crackles, no rales, no rhonchi and diminished lung sounds Cardio Rate: regular rate Rhythm: regular rhythm Heart sounds: S1 normal heart sound present and S2 normal heart sound present GI Palpation (GI): Soft to palpation and nontender Auscultation: normal bowel sounds Skin General skin exam: rashes and/or lesions noted Assessment & Plan Assessment & Plan (1) COPD (chronic obstructive pulmonary disease): Code(s): J44.9 - Chronic obstructive pulmonary disease, unspecified Category: Medical Qualifiers: COPD type: emphysema Emphysema type: centrilobular Qualified Code(s): J43.2 - Centrilobular emphysema (2) PREMA (obstructive sleep apnea): Code(s): G47.33 - Obstructive sleep apnea (adult) (pediatric) Category: Medical (3) Chronic respiratory failure: Comment: The significant emphysema, chronic stable COPD Code(s): J96.10 - Chronic respiratory failure, unspecified whether with hypoxia or hypercapnia Category: Medical Qualifiers: Respiratory failure complication: hypoxia Qualified Code(s): J96.11 - Chronic respiratory failure with hypoxia (4) Pulmonary nodule: Code(s): R91.1 - Solitary pulmonary nodule Category: Medical Plan stopped Symbicort 160/4.52 puffs twice a day. (failed Breo,Dulera,Breztri, advair, stiolto, Asmanex, Trelegy, Breo, does not tolerate powdered inhalers) continue pulmomicort Spiriva 2 inhalation Add Atrovent as needed, monitor for anticholinergic syndrome continue oxygen supplementation during the daytime BRINA as needed (xopenex) ECHO to mild aortic stenosis restarting pulmonary rehabilitation. continue PAP therapy (NIV), requesting download nasal therapy LDCT program bloodwork follow-up in 3-4 months Orders: Orders Complete Blood Count Auto Diff Today J43.2 - Centrilobular emphysema Venous Blood Gas Today J43.2 - Centrilobular emphysema Basic Metabolic Panel Today J43.2 - Centrilobular emphysema Liver Panel Today J43.2 - Centrilobular emphysema Magnesium Today J43.2 - Centrilobular emphysema Phosphorus Today J43.2 - Centrilobular emphysema Ferritin Today J43.2 - Centrilobular emphysema Coding Level of Care Code Est Pt Level 4 (26836) Complex EM visit Add On G2211 Diagnoses Centrilobular emphysema J43.2 COPD type: emphysema Emphysema type: centrilobular PREMA (obstructive sleep apnea) G47.33 Chronic respiratory failure with hypoxia J96.11 Respiratory failure complication: hypoxia Pulmonary nodule R91.1 Time Spent (min) 18
[2024-09-01 13:56] VITALS: BP 110/64; PULSE 108; O2SAT 94
== END 2024-09-01 14:30 | disposition home or self-care (01) ==
PROVIDERS: PCP Internal Medicine; Visit Provider Hospitalist
DX: J43.2 Centrilobular emphysema (principal); G47.33 Obstructive sleep apnea (adult) (pediatric); J96.11 Chronic respiratory failure with hypoxia; R91.1 Solitary pulmonary nodule
CPT/HCPCS: 99214

== ENCOUNTER 2024-10-29 09:40 | Outpatient (REF) | payer OTHER, MEDICARE, SELFPAY ==
--- OUTSIDE RECORDS SUMMARY | 2024-10-29 09:44 | XMS_ITS | Data Portability ---
Author Organization [facility], [address] Address [address] [place] [address] Care Team Providers Care Single Corner Cutter Name Role Phone [facility] Hanging Flags Decorator Assessment No assessment recorded. Plan of Treatment Reminders Order Date Submit Date Provider Last Modified By Organization Details Last Modified Time Details Appointments None recorded. Lab None recorded. Referral None recorded. Procedures None recorded. Surgeries None recorded. Imaging None recorded. Medication Orders dexamethaso ne sodium phosphate (PF) 10 mg/mL injection solution 2023 024 richa Not available 18:12:37 prednisone 20 mg tablet 2023 024 [email or web address] [id number], [address] [place], [address], 18:48:33 Zithromax Z-Robinson 250 mg tablet 2023 024 SALOME [id number], [address] [place], [address], 19:36:28 Patient TargetsNo targets recorded. Patient Instructions Encounter Date Encounter Id Patient Instructions Last Modified By Organization Details Last Modified Time 03/08/2024 [id number] chronic obstructive pulmonary disease (COPD) flare-ups: care instructions Not available 03/08/2024 18:12:37 peak flow* SALOME Not available 03/09 14:22:07 respiration improved post steroid injection. peak flow improved Not available 03/08/2024 18:12:14 04/02/2024 [id number] Acute Sinusitis: Care Instructions Not available 04/02/2024 19:36:26 Reason for Referral None Reported. Results Created Date Observation Date Name Description Value Unit Range Abnormal Flag Note LastModifiedBy Organization Detail LastModifiedTime 03/09/20 24 03/09/2024 peak flow* Pre (L/min) 50 Not Available [address] [place] [address] [address] [place], [address], 03/08/2024 18:12:21 03/09/20 24 03/09/2024 peak flow* Post (L/min) 120 Not Available [id number] [address] [address] [place], [address], 03/08/2024 18:12:21 03/09/20 24 03/09/2024 peak flow* Oxygen Saturation 98 Not Available [id number] [place] [address] [place] [address], [phone], 03/08/2024 18:12:21 Result Notes None recorded. Problems Name Problem SNOMED Code Status Onset Date Resolution Date Notes Provider Name and Address Organization Details Recorded Time Chronic obstructive pulmonary disease 21694501 Active 2023 Kassidy linder PA - [facility] 4 16:01:39 Hypertensive disorder 52555878 Active 2023 Kassidy linder PA - [facility] 4 16:01:44 Acute exacerbation of chronic obstructive pulmonary disease 341210804 Active 2023 Letitia Carroll NP [address] [facility] [place], [address] , PA - [facility] 4 16:10:22 Anxiety 29507179 Active LUCILA linder, PA - [facility] 4 18:49:23 Irritable bowel syndrome 91907752 Active LUCILA linder, PA - [facility] 4 18:49:29 Acute sinusitis 16095195 Active 2023 Letitia Carroll NP [address] [place], [address] , PA - [facility] 4 19:36:12 Notes:stomach spasms Problem Notes None recorded. Medical Equipment None Reported. Allergies Allergen ID Allergen Name Allergen Category Reaction Reaction Severity Criticality Documentation Date Start Date Code Code System Note Provider Name and Address Organization Details Recorded Time 329955 Product containin g penicilli n and antibioti c (product) medicatio n Not available Not available Not available 03/08/2024 [id number] [facility] Kassidy Nicolnahun linder, PA - [facility] 4 16:00:55 Medications Name Sig Start Date Stop Date Status Note LastModified by Organization Details LastModified Time azithromy wilbert 250 mg tablet TAKE 2 TABLETS BY MOUTH TODAY, THEN TAKE 1 TABLET DAILY FOR 4 DAYS DIRECTED active Not Available Not Available No t Available prednison e 20 mg tablet PLEASE SEE ATTACHED FOR DETAILED DIRECTIO NS 04/02 completed Not Available Not Available Not Available amlodipin e 5 mg tablet TAKE 1 TABLET BY MOUTH EVERY DAY active Not Available Not Available No t Available nortripty line 25 mg capsule TAKE 1 CAPSULE BY MOUTH EVERYDAY AT BEDTIME active Not Available Not Available No t Available doxycycli ne monohydra te 100 mg capsule TAKE 1 CAPSULE BY MOUTH TWICE A DAY FOR 5 DAYS active Not Available Not Available No t Available nortripty line 10 mg capsule TAKE 1 CAPSULE BY MOUTH EVERYDAY AT BEDTIME active Not Available Not Available No t Available gabapenti n 100 mg capsule TAKE 2 CAPSULES BY MOUTH 3 TIMES A DAY active Not Available Not Available No t Available levalbute rol 1.25 mg/3 mL solution for nebulizat ion 1.25 MG (3 ML) INHALED 2 TIMES A DAY FOR 30 DAYS active Not Available Not Available No t Available lorazepam 1 mg tablet TAKE 1 TABLET BY MOUTH THREE TIMES A DAY NEEDED active Not Available Not Available No t Available dicyclomi ne 10 mg capsule TAKE 3 CAPSULES BY MOUTH 3 TIMES A DAY 04/02 completed Not Available Not Available Not Available ipratropi um bromide 0.02 % solution for inhalatio n TAKE 2.5 ML BY NEBULIZA TION 4 TIMES DAILY NEEDED FOR WHEEZING 04/02 completed Not Available Not Available Not Available levalbute rol HFA 45 mcg/actua tion aerosol inhaler INHALE 2 PUFFS EVERY 4 HOURS NEEDED FOR SHORTNES S OF BREATH OR WHEEZING active Not Available Not Available No t Available dexametha sone sodium phosphate (PF) 10 mg/mL injection solution Take 1 mL by injectio n route. 2023 active Billable units is 1mg up to 10 units. Units are not the dose. Not Available Not Available Not Available Pulmicort Flexhaler 90 mcg/actua tion breath activated INHALE 1 PUFF INTO THE LUNGS TWICE DAILY active Not Available Not Available No t Available Pulmicort Flexhaler 180 mcg/actua tion breath activated active Not Available Not Available No t Available Dulera 200 mcg-5 mcg/actua tion HFA aerosol inhaler 2 PUFF INHALED EVERY 12 HOURS 03/08 completed Not Available Not Available Not Available Breo Ellipta 100 mcg-25 mcg/dose powder for inhalatio n INHALE 1 PUFF ONCE DAILY FOR 30 DAYS active Not Available Not Available No t Available Spiriva Respimat 2.5 mcg/actua tion solution for inhalatio n INHALE 2 PUFFS ORALLY DAILY 03/08 completed Not Available Not Available Not Available Stiolto Respimat 2.5 mcg-2.5 mcg/actua tion solution for inhalatio n 2 PUFF INHALED DAILY FOR 90 DAYS 03/08 completed Not Available Not Available Not Available Breo Ellipta 200 mcg-25 mcg/dose powder for inhalatio n USE 1 PUFF INHALED DAILY 03/08 completed Not Available Not Available Not Available Breztri Aerospher e 160 mcg-9mcg- 4.8mcg/ac tuation HFA aerosol inhaler INHALE 2 PUFFS BY MOUTH TWICE DAILY 03/08 completed Not Available Not Available Not Available Breyna 160 mcg-4.5 mcg/actua tion HFA aerosol inhaler INHALE 2 PUFFS BY MOUTH TWICE DAILY 03/08 completed Not Available Not Available Not Available Vitals Date Recorded Heart rate Oxygen saturation Oxygen saturation in Arterial blood by Pulse oximetry Inhaled oxygen flow rate Heart rate Respiratory rate Body height Body mass index (BMI) Body weight Body temperature Systolic blood pressure Diastolic blood pressure Provider Name and Address Organization Details Last Updated DateTime 4 124 /min 98 % 98 % 2 L/min 116 /min 26 /min 170.18 cm 26 kg/m2 26634.3 3 g 96.7 [degF] 136 mm[Hg] 82 mm[Hg] Kassidy Genie PA - [facility] 4 16:03:49 Date Recorded Body height Body mass index (BMI) Body weight Oxygen saturation Oxygen saturation in Arterial blood by Pulse oximetry Heart rate Respiratory rate Body temperature Systolic blood pressure Diastolic blood pressure Provider Name and Address Organization Details Last Updated DateTime 4 170.18 cm 26 kg/m2 70985.3 3 g 97 % 97 % 94 /min 18 /min 98.2 [degF] 116 mm[Hg] 75 mm[Hg] LUCILA BRANDT PA - [facility] 18:50:29 Social History Question Answer Notes LastModified by Organizat ion Details LastModified Time Tobacco Smoking Status Former Smoker Kassidy linder PA - [facility] 03/08/2024 16:02:45 What Is Your Level Of Alcohol Consumption? None Information not available 03/08/2024 When Did You Quit Smoking? 6-10yearssi ncelastciga rette Information not available 03/08/2024 Have You Had A Flu Shot This Season? N/A Information not available 03/08/2024 Have You Had Direct Contact, Or Contact During Intimacy, With Monkeypox Rash, Scabs, Or Body Fluids From A Person With Monkeypox? No Information not available 03/08/2024 What Was The Date Of Your Most Recent Tobacco Screening? 03/01/2024 Information not available 03/08/2024 Do You Use Any Illicit Or Recreational Drugs? No Information not available 03/08/2024 Have You Recently Traveled Abroad? No Information not available 03/08/2024 Do You Or Have You Ever Used Any Other Forms Of Tobacco Or Nicotine? No Information not available 03/08/2024 Sex: Unknown Functional Status None recorded. Mental Status None recorded. Family History Relationship Description Onset Age of this Age Resolved Age Notes LastModified by Organization Details LastModified Time Father No current problems or disability Not available 03/08 16:02:12 Mother No current problems or disability Not available 03/08 16:02:12 Medical History No medical history recorded. Immunizations Vaccine Type Date Status Note Provider Nam e and Address Organization Details Recorded Time Influenza, recombinant, quadrivalent, PF 0 completed Kassidy Marier null, PA - [facility] 03/08/2024 16:07:11 zoster recombinant 3 completed Kassidy Marier null, PA - [facility] 03/08/2024 16:07:11 zoster recombinant 1 completed Kassidy Marier null, PA - [facility] 03/08/2024 16:07:11 zoster recombinant 2 completed Kassidy Marier null, PA - [facility] 03/08/2024 16:07:11 Influenza, adjuvanted, quadrivalent, PF 2 completed Kassidy Nicoler null, PA - [facility] 03/08/2024 16:07:11 Influenza, adjuvanted, quadrivalent, PF 3 completed Kassidy Marier null, PA - [facility] 03/08/2024 16:07:11 Influenza, adjuvanted, quadrivalent, PF 1 completed Kassidyramírez Camarenaer null, PA - [facility] 03/08/2024 16:07:11 COVID-19, mRNA, LNP-S, PF, 100 mcg/0.5mL dose or 50 mcg/0.25mL dose 1 completed Kassidyramírez Camarenaer null, PA - [facility] 03/08/2024 16:07:11 COVID-19, mRNA, LNP-S, PF, 100 mcg/0.5mL dose or 50 mcg/0.25mL dose 1 completed Kassidy Marier null, PA - [facility] 03/08/2024 16:07:11 COVID-19, mRNA, LNP-S, PF, 30 mcg/0.3 mL dose 1 completed Kassidyramírez Camarenaer null, PA - [facility] 03/08/2024 16:07:11 COVID-19, mRNA, LNP-S, bivalent, PF, 30 mcg/0.3 mL dose 2 completed Kassidy linder PA - [facility] 03/08/2024 16:07:11 COVID-19, mRNA, LNP-S, PF, manny-sucrose, 30 mcg/0.3 mL 3 completed Kassidy linder PA - [facility] 03/08/2024 16:07:11 Influenza, split virus, quadrivalent, PF 9 completed Kassidy linder PA - [facility] 03/08/2024 16:07:11 Past Encounters Encounter ID Performer Location Encounter Start Date Encounter Closed Date Diagnosis/Indication Diagnosis SNOMED-CT Code Diagnosis ICD10 Code Diagnosis Note [id number] [address] [facility] [address] [place] [id number] 11/16/2016 11:48:19 11/16/2016 12:20:51 [id number] [address] [place] [id number] 7 06/22/2017 16:07:16 06/22/2017 17:22:21 [id number] [address] [place] [id number] 7 01/14/2018 09:52:41 01/14/2018 11:41:28 [id number] [address] [place] [id number] 7 03/24/2016 15:44:49 03/24/2016 17:14:06 [id number] [address] [place] [id number] 7 04/07/2018 11:09:50 04/07/2018 11:49:23 [id number] Letitia Carroll [facility] [address] [facility] [address] [place] [id number] 7 03/08/2024 15:58:48 03/08/2024 18:30:48 Acute exacerbation of chronic obstructive pulmonary disease 929092053 J44.1 Chronic obstructiv e pulmonary disease (COPD) is a lung disease that makes it hard to breathe. It is caused by damage to the lungs over many years, usually from smoking.Ch ronic bronchitis and emphysema are two lung problems that are types of COPD:Chron ic bronchitis : The airways that carry air to the lungs (bronchial tubes) get inflamed and make a lot of mucus. This can narrow or block the airways. It can also make you cough.Emph ysema: The tiny air sacs (alveoli) at the end of the airways in the lungs are damaged. When the air sacs are damaged or destroyed, the inner moss break down, and the sacs become larger. These larger air sacs move less oxygen into the blood. This causes difficulty breathing or shortness of breath that gets worse over time. After air sacs are destroyed, they cannot be replaced.M any people with COPD have attacks called flare-ups or exacerbati ons. This is when your usual symptoms quickly get worse and stay worse.If you notice any problems or new symptoms, get medical treatment right away.Follo w-up care is a ro part of your treatment and safety. Be sure to make and go to all appointmen ts, and call your doctor if you are having problems. It's also a good idea to know your test results and keep a list of the medicines you take.How can you care for yourself at home?Be safe with medicines. Take your medicines exactly as prescribed . Call your doctor if you think you are having a problem with your medicine. You may be taking medicines such as:Broncho dilators. These help open your airways and make breathing easier.Cor ticosteroi ds. These reduce airway inflammati on. They may be given as pills, in a vein, or in an inhaled form. You may go home with pills in addition to an inhaler that you already use.A spacer may help you get more inhaled medicine to your lungs. Ask your doctor or pharmacist if a spacer is right for you. If it is, ask how to use it properly.I f your doctor prescribed antibiotic s, take them as directed. Do not stop taking them just because you feel better. You need to take the full course of antibiotic s.If your doctor prescribed oxygen, use the flow rate your doctor has recommende d. Do not change it without talking to your doctor first.Do not smoke. Smoking makes COPD worse. If you need help quitting, talk to your doctor about stop-smoki ng programs and medicines. These can increase your chances of quitting for good. We are limited in our diagnostic capabiliti es in our center and feel that it would be best to go to the Emergency Room. Based on your presentati on it would be best to have access to lab work and advanced imaging, if the physician would feel that would be indicated based on your History and Presentati on. These things are typically necessary to give you an accurate diagnosis to what is causing your pain. your condition do have the risk of having significan t complicati ons if not diagnosed and treated sania mcbride. [id number] [place] [address] [id number] 04/02/2024 17:56:27 04/02/2024 19:48:45 Acute sinusitis [id number] J01.90 Health Concerns Section Related Observation LastModified by Organization Detai ls LastModified Time None Recorded Concern Status LastModified by Organization Details LastModified Time None Recorded Advance Directives Directive None Recorded Payers Encounter Date Sequence Insurance Name Policy Number Policy Teresa Covered Member ID Teresa Member ID Guarantor Name 06/22/2017 1 [facility] [id number] Jameel Rakesh [id number] Jameel Rakesh 01/14/2018 1 [facility] [id number] Jameel Rakesh [id number] Jameel Rakesh 04/07/2018 1 [facility] [id number] Jameel Rakesh [id number] Jameel Rakesh 03/08/2024 1 [facility] [id number] [id number] Jameel Rakesh 03/08/2024 2 [place] [employer] Jameel Rakesh [id number] Jameel Rakesh 04/02/2024 1 [facility] [id number] [id number] Jameel Rakesh Notes Date Note Type Note Provider Name and Address Organization Details Recorded Time 4 text/html CoughReported bypatient.source of patient informationInformation obtained from patient; Patient arrived at Urgent Care ambulatory Quality:barking;dry; symptoms worse with lying down Severity:severe Duration:3 days Timing:worsening; gradual Context:family members ill with similar symptoms; Patient denies vaping;smoker(quit 5 years ago) Modifying Factors:at night Associated Symptoms:no fever; no chills; no chest pain; no heartburn; no nausea; no vomiting; no edema; no agitation; no post nasal drip;wheezing Patient presents with SOB,is aware that CXR is not available . patient on O2 at 2L via [place] . Letitia Carroll NP [address] [place], [address], [facility] 03/08/2024 18:12:46 text/html Sinus Complaints UCReported bypatient.Location:pain behind the eyes;sinus pain;facial pain;pain in the cheek;sinus pressure; left side; right side Associated Symptoms:nasal discharge from nostrils;fever/chills;Post nasal drip;ear fullness;cough Onset/Timing:worse in pm Quality:worsening Severity:severe Context:no recent upper respiratory infection Risk Factors:no current smoking or tobacco use Alleviating factors:nothing gives relief was given doxycycline and still feels sinus pain and congestion. Letitia Carroll NP [address] [place], [address], [facility] 04/03/2024 16:53:33
--- OUTSIDE RECORDS SUMMARY | 2024-10-29 09:44 | XMS_ITS | Clinical Summary ---
Author Organization [email or web address] [facility] it Address [address] [place] [address] Care Team Providers Care Workshop Manager Name Role Phone Jacob Loza MD Primary Care Provider [phone] Encounters Date Type Department Care Team Description 08/07/2024 Telephone Internal Medicine [facility] [address] [phone] Domi Macdonald MA faxed order ([facility]) 08/04/2024 Telephone Internal Medicine [facility] 175 [facility] [address] [place] [phone] Jacob Loza MD [facility] Last 3 Months Surgical History Surgery Date Site/Laterality Comments CHOLECYSTECTOMY 2004 PROCEDURE: HISTORICAL CHOLECYSTECTOMY HERNIA REPAIR 02/19/2019 Bilateral PROCEDURE: HISTORICAL HERNIA REPAIR/ING CARDIAC CATHETERIZATION PROCEDURE: HISTORICAL CARDIAC CATH; COMMENT: stent of circumflex 1999 Medical History Medical History Date Comments Asthma, exercise induced 05/19/2019 DX:Asth ma, exercise induced CAD (coronary artery disease) 02/02/2019 DX :CAD (coronary artery disease); COMMENT: S/p stent circumflex 1999-[facility] COPD (chronic obstructive pu lmonary disease) ([facility]/HCC) DX:COPD (chronic obstructive pulmonary disease) ([facility]); COMMENT: Sees pul [facility] Dr. Baum Severe emphysema per PFTs 04/13/19 with FEV1 26% of predicte dvalue, FVC 47%, ratio 55%. 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 Tobacco use disorder 01/27/2018 DX:Tobacco use disorder Family History Medical History Relation Name Comments Depression Brother Cirrhosis Father no alcohol use, ?environmental exposure Depression Mother Depression Sister 1 No Known Problems Sister 2 No Known Problems Sister 3 Relation Name Status Comments Brother Alive Daughter adopted Alive Father Mother Alive Sister 1 Alive Sister 2 Alive Sister 3 Alive Son adopted Alive Social History Tobacco Use Types Packs/Day Years Used Date Smoking Tobacco: Former Cigarettes 0.5 21.2 1 10/29/1996 - 10/24/2018 Smokeless Tobacco: Never Alcohol Use Standard Drinks/Week Comments No 0 (1 standard drink = 0.6 oz pur e alcohol) Sex and Gender Information Value Date Recorded Sex Assigned at Not on file Gender Identity Not on file Sexual Orientation Not on file Obstetrics History Last Filed Vital Signs Vital Sign Reading Time Taken Comments Blood Pressure 136/68 03/18/2024 1:25 PM EDT Sitting R Arm Pulse 113 03/18/2024 1:25 PM EDT Temperature - - Respiratory Rate - - Oxygen Saturation - - Inhaled Oxygen Concentration - - Weight 69 kg (152 lb 3.2 oz) 03/18/2024 1:25 PM EDT Height 170.2 cm (5' 7 ) 03/13/2024 2:33 PM EDT Body Mass Index 23.84 03/13/2024 2:33 PM EDT Plan of Treatment Health Maintenance Due Date Last Done Comments Pneumococcal Vaccine: 65+ Years (1 of 2 - PCV) 02/02/1956 DTaP,Tdap,and Td Vaccines (1 - Tdap) 02/02/1971 Zoster Vaccines (1 of 2) 02/02/2002 RSV Immunization Patients 60 + Years Old (1 - Risk 60-74 years 1-dose series) 2012 Abdominal Aortic Aneurysm (AAA) Screen 08/21/2022 Cholesterol Screening (Lipid Panel) 08/21/2022 Colorectal Cancer Screening: Colonoscopy 08/21/2022 Depression Screening 08/21/2022 Falls Risk Assessment 08/21/2022 Hepatitis C Screening 08/21/2022 Social Influencers of Health Screening 08/21/2022 Hypertension/CHF/CAD Annual BMP Blood Test 08/30/2022 COVID-19 Vaccine (3 - 2023-2 5 season) 2024 11/23/2020, 10/26/2020 Influenza Vaccine (#1) 2024 07/06/2020 HIB Vaccines Aged Out No longer eligi ble based on patient's age to complete this topic HPV Vaccines Aged Out No longer eligi ble based on patient's age to complete this topic Hepatitis A Vaccines Aged Out No long er eligible based on patient's age to complete this topic Hepatitis B Vaccines Aged Out No long er eligible based on patient's age to complete this topic IPV Vaccines Aged Out No longer eligi ble based on patient's age to complete this topic MMR Vaccines Aged Out No longer eligi ble based on patient's age to complete this topic Meningococcal ACWY Vaccine Aged Out N o longer eligible based on patient's age to complete this topic RSV Immunization Patients Under 20 months Aged Out No longer eligible b ased on patient's age to complete this topic Varicella Vaccines Aged Out No longer eligible based on patient's age to complete this topic Care Teams Workshop Manager Relationship Specialty Start Date End Date Jacob Loza MD PCP - General Internal Medicine 04/27/21
[2024-10-29 09:51] LABS: MANUAL DIFF FLAG NO
[2024-10-29 09:53] LABS: Basophils Absolute Auto 0.1 X10*3/uL (0.0-0.2); Basophils Percent Auto 0.6 % (0-2); Eosinophils Absolute Auto 0.3 X10*3/uL (0.0-0.4); Eosinophils Percent Auto 3.3 % (0-4); Imm Gran Abs Auto 0.02 X10*3/uL (0.00-0.03); Imm Gran Pct Auto 0.3 % (0.0-0.4); Lymphocytes Absolute Auto 2.8 X10*3/uL (1.2-4.9); Lymphocytes Percent Auto 36.6 % (20-40); Mean Corpuscular HGB Conc 33.3 g/dl (31.0-36.0); Mean Corpuscular Hemoglobin 29.4 pg (27.0-33.0); Mean Corpuscular Volume 88.1 fL (80.0-98.0); Mean Platelet Volume 8.6 fL (9.4-12.4); Monocytes Absolute Auto 0.5 X10*3/uL (0.1-1.2); Monocytes Percent Auto 6.6 % (2-11); Neutrophils Absolute Auto 4.1 x10*3/uL (2.0-8.3); Neutrophils Percent Auto 52.6 % (45-73); Platelet Count 241 X10*3/uL (160-400); Red Blood Count 5.11 X10*6/uL (4.60-5.80); Red Cell Distribution Width 13.2 % (11.0-16.0); White Blood Count 7.8 X10*3/uL (4.8-10.8)
[2024-10-29 10:02] LABS: VBG Base Excess 5.1 mmol/L; VBG HCO3 30 mmol/L (22-26); VBG pCO2 47 mmHg; VBG pH 7.41 (7.32-7.43); VBG pO2 28 mmHg; Venous Blood Gas Refer to POC result
[2024-10-29 10:20] LABS: Alanine Aminotransferase 18 U/L (0-40); Albumin Level 4.2 g/dL (3.5-5.0); Alkaline Phosphatase 69 U/L (39-117); Anion Gap 12 (12-20); Aspartate Amino Transferase 18 U/L (5-37); Bilirubin Direct 0.1 mg/dL (0.0-0.5); Bilirubin Total 0.3 mg/dL (0.0-1.0); Blood Urea Nitrogen 12 mg/dL (9-16); Calcium 9.8 mg/dL (8.4-10.2); Carbon Dioxide 25 mmol/L (22-29); Chloride 106 mmol/L (96-108); Estimated Glomerular Filt Rate > 60; Glucose Random 96 mg/dL (60-115); Magnesium 2.4 mg/dL (1.6-2.6); Phosphorus 2.6 mg/dL (2.7-4.5); Potassium 4.2 mmol/L (3.3-5.1); Sodium 139 mmol/L (135-145); Total Protein 7.5 g/dL (6.5-8.0)
[2024-10-29 10:34] LABS: Ferritin 52 ng/mL (20-250)
== END 2024-10-29 09:41 | disposition home or self-care (01) ==
LOC: HO.LAB 09:40
PROVIDERS: PCP Internal Medicine; Visit Provider Hospitalist
DX: J43.2 Centrilobular emphysema (principal)
CPT/HCPCS: 36415; 80048; 80076; 82728; 82803; 83735; 84100; 85025

== ENCOUNTER 2024-11-03 14:22 | Outpatient (AMB) | payer OTHER, MEDICARE, SELFPAY ==
[2024-11-03 14:27] VITALS: BP 108/76; PULSE 118; O2SAT 96; BMI 25.8
--- NOTE | 2024-11-03 14:27 | MHC.OFFVIS ---
Vital Signs 11/03/24 14:27 Height 5 ft 6 in Weight 159 lb 13.362 oz BMI 25.8 BP 108/76 Blood Pressure Location Lt brachial Position Sitting Pulse 118 H Pulse Source Pulse Oximeter Pulse Oximetry (%) 96 Oxygen Delivery Method Room Air Intake Visit Reasons: COPD Allergies lamotrigine [From LAMICTAL] Allergy (Severe, Verified 11/03/24 14:31) agitation and anxiety with titration codeine [CODEINE] Allergy (Intermediate, Verified 11/03/24 14:31) INSOMNIA Penicillins [PENICILLINS] Allergy (Intermediate, Verified 11/03/24 14:31) RASH epinephrine [EPINEPHRINE] Adverse Reaction (Intermediate, Verified 11/03/24 14:31) Hypertension escitalopram [From LEXAPRO] Adverse Reaction (Intermediate, Verified 11/03/24 14:31) NIGHTMARES sertraline [From ZOLOFT] Adverse Reaction (Intermediate, Verified 11/03/24 14:31) NIGHTMARES sulfamethoxazole [From BACTRIM] Adverse Reaction (Intermediate, Verified 11/03/24 14:31) STOMACH UPSET HPI Comments Details: The patient is a 74-year-old gentleman known COPD and also depression. I did have the pleasure meeting him while he was in these [facility] trachea trach unit. He was following up with [place] traveling nurse. He decided to transfer his care over to [facility]. Overall he still continues to have significant shortness of breath. His sister see with him because she is concerned. His symptoms about moderate severity. He also complains of productive cough. He has been using Symbicort. He does have increased but is unlikely because of the powder gag exam. Therefore he stopped using it. He also has a rescue inhaler that he uses on a daily basis. He did have pulmonary function studies at some point. Here in the office we did taken for 6 minutes walk test the patient did qualify for oxygen. The patient is interested in pulmonary rehabilitation and therefore will looking to repeating his pulmonary function studies to get him approved for at. In the meantime he is still smoking. He has a greater than 30 pack-year history of smoking. Therefore he will be a great candidate for the lung cancer screening program. He did have his pulmonary function studies and also underwent a CT scan of the chest low-dose protocol demonstrated no significant changes except for extensive emphysema and small pulmonary nodules. He did have a CT scan of the chest to the lung cancer screening program. Demonstrated emphysema along with 1 mm pulmonary nodule. He have another CT scan in a year's time in October of 2020. 01/13/2024 the patient is here for a pulmonary follow-up visit. The patient has been having some difficulty with his inhalers. Initially he was on Symbicort Spiriva that were working well. Then the Symbicort was not available and he was placed on Breztri, but, that not work for him. Therefore he was switched over to Dulera and Spiriva. This appears to be helpful but seems like the Dulera back order and he can not get enough medication. And is struggling with that. The patient is also concerned about the inhaled cortical steroids. He does get tearful at times he does have an issue with mood disorder. He is wondering there is a way that the steroids can be decreased or stopped. I did encourage him to continue the steroid although will switch him to a inhaled steroid monotherapy inhaler and therefore the dose could be adjusted accordingly. In addition to that he is responded well to the Respimat device and therefore will switch him over to Stiolto. He has been using the oxygen with good effect. The oxygen concentrator has been affecting beneficial he continues participating in pulmonary rehabilitation at this time. 02/14/2024 the patient is here for a pulmonary follow-up visit. The patient has been having a hard time with his inhalers. He is pretty upset. He responded very well to the Symbicort after multiple trials he finally find a regimen that will work for him. He uses Symbicort and Spiriva. But, then his insurance will no longer cover the Symbicort and we switched him over to Breztri which she did not tolerate causing hoarseness and fatigue. Then, the patient try Breo and could not tolerate the powder. We switched him over to Dulera and he did not feel like it worked same way. Now he wants to go back on Symbicort. Will go ahead and request a prior approval to get him back on Symbicort since it was the only inhaler that has been affecting beneficial without significant adverse effects. He is very sensitive due to the inhalers due to his psychiatric history. Therefore, agree that we should try to get him covered on Symbicort. He so concerned because of his advanced COPD that is willing to pay [id number] for the Symbicort which is not sustainable. Continues use the oxygen with good effect. Otherwise will follow-up in 3-4 months. If he has any issues or if you have some difficulties getting him the medication then will discuss it further. 04/09/2024 the patient is here for a pulmonary follow-up visit. Overall he is doing fair. He is still having difficulty with breathing. Also having issues with sinusitis. After doing some research on his own he figured out that the Spiriva may be causing his sinusitis. Therefore he opts not to take it. He has been on multiple inhalers, but, some of them causing him to have adverse effects. He realized after using multiple inhalers that Breo will be his best option. Therefore I will send him Breo 100 mcg the pharmacy where he would use it once a day. He will stop the Spiriva at this time. The patient also has a nebulizer that he can use as needed. As far as sinusitis he has 2 course of antibiotics. Hopefully he starts feeling better. Will provide him some nasal sprays to help him with the nasal congestion and the sinus inflammation. The patient is also off the prednisone which is reassuring. Remind imaging studies standpoint the patient is participating in the lung cancer screening program. He just had a CT scan that we personally reviewed although has not been officially read. He has extensive emphysema but no worsening nodular densities to appreciate. 07/13/2024 the patient is here for a pulmonary follow-up visit. Overall he is doing a little better. He is tolerating the Pulmicort along with the Spiriva. The patient is also using the Xopenex as needed. Seems to be working for him. He feels like he needs additional bronchodilation her. He is trying failed multiple inhalers. I do believe Atrovent short-acting beta agonist would be a good option that he can use because of his issues with intolerance to beta agonist therapy. Will going to go ahead and requested at the pharmacy. May have to do a prior approval. If he tolerates the Atrovent then he can back off on the Xopenex that he is using frequently. The patient is also using the oxygen therapy with good effect. He is also using the PAP therapy with good effect. In the recent imaging studies to review at this time. He did have a CT chest through LDCT. RADS 1. He does have significant calcified Aortic valve. We will request an ECHO at this time. 09/01/2024 the patient is here for a pulmonary follow-up visit. Overall , doing well. He is looking to get back to pulmonary rehabilitation. He continues on the Spiriva and also has been using the Pulmicort inhaler with good effect. He is also having to use his rescue inhaler about 3 times a day because he does not tolerate a long-acting 1. He does have adjuvant inhaler but he has to be careful not to take too much anticholinergic medications because of his history of anticholinergic syndrome. Therefore he will monitor closely for any adverse effects. The patient did have an echocardiogram which we personally reviewed demonstrating mild aortic stenosis. Although was a limited study. And he also had a CT scan of the chest demonstrating extensive emphysema primarily in the upper lung zones. His sister was with him. We did talk about alternative therapies including lung volume reduction intervention and also the risks that come with that. The patient will read up on it in decide later if he wants to pursue that. For now he is going to start rehab in going to continue with his current respiratory medications. She also continues use the noninvasive ventilator at nighttime. I am going to request a download from his [employer] and also access on air view. He does have a hard time transitioning from the ventilator to his oxygen so will see if we can any adjustments that we can make. 11/03/2024 the patient is here for a pulmonary follow-up visit. He continues to struggle with his breathing. Significant shortness of breath. Moderate to severe. He does use oxygen all the time. He does not find that the Pulmicort inhaler has been helpful. He does not find that the Spiriva has been helpful. Feels like the adjuvant that is making it worse. He wants to go back to Symbicort. He can try 1 puff twice a day. He also has Xopenex that also he finds partially helpful. At this point the patient is medically maximize on respiratory therapy and he has tried and failed multiple inhalers. We did talk about nebulized long-acting muscarinic antagonist but the patient at this point will stay on the Spiriva. He is willing to start Ohtuvayre to provide further bronchodilation in view of his significant disease. Plan to follow-up in 4-6 weeks to see his response to therapy. At that point we can talk about additional interventions. Although we know that he has extensive emphysema and very limited pulmonary reserve. He will undergo pulmonary function studies so we can review and assess his progression. [facility] Medical History (Updated 05/22/24 @ 00:01 by Laury Gipson) CAD (coronary artery disease) Abnormal nuclear stress test Hypertension HLD (hyperlipidemia) Pneumonitis Chronic respiratory failure COPD (chronic obstructive pulmonary disease) Asthma Pulmonary nodule COVID-19 vaccine series completed Personal history of nicotine dependence Hx of small bowel obstruction Tardive dyskinesia Panic disorder History of major depression Generalized anxiety disorder IBS (irritable bowel syndrome) GERD (gastroesophageal reflux disease) Surgical History Stented coronary artery Hx of colonoscopy H/O bilateral inguinal hernia repair Hx of cholecystectomy Family History Father No problems noted. Mother No problems noted. Social History Household Members: Spouse and Children Household Members Other:: Emeka Housing: House Are you a primary insurance healthcare representative to a significant other at home: No Do you presently have visiting nurse or other home services: No Unable to assess alcohol history related to: Unknown Alcohol intake: never Comment: patient stable on ambulation Patient Tobacco Use Status: Former Tobacco user Tobacco use type: Cigarette Years Smoked: 35 e-Cigarette/Vaping Use: Never Used Second Hand Smoke Exposure: No service: No Sexual orientation: Lesbian/Triana/Homosexual Review of Systems Const Denies daytime sleepiness, Reports difficulty sleeping and Denies night sweats ENT Denies change in voice, Reports dry mouth, Denies mouth pain, Reports nasal congestion, Reports nasal discharge and Reports nasal obstruction Card Denies chest pain, Reports dyspnea and Reports dyspnea on exertion Resp Reports cough, Denies pain on inspiration, Denies pain with cough, Reports dyspnea, Reports dyspnea on exertion and Reports wheezing GI Denies abdominal pain Musc Denies no additional complaints and Reports abnormal gait Neuro Reports abnormal gait Psych Reports depression, Denies homicidal ideation and Denies suicidal ideation Ross/Lymph Denies easy bleeding and Denies lymphadenopathy Aller/Immun Reports wheezing Physical Exam Vital Signs: Last Vital Signs Pulse 118 H 11/03/24 14:27 BP 108/76 11/03/24 14:27 Pulse Ox 96 11/03/24 14:27 Oxygen Delivery Method Room Air 11/03/24 14:27 BMI result Body Mass Index 25.8 Const General: alert Nutritional Appearance: thin Neck Neck: Yes normal visual inspection, Yes full ROM and Yes no lymphadenopathy Chest Chest palpation & inspection: normal inspection of the chest, no localized rib tenderness and no tenderness Resp Effort & Inspection: normal respiratory effort and prolonged expiratory phase Auscultation: no crackles, no rales, no rhonchi and diminished lung sounds Cardio Rate: regular rate Rhythm: regular rhythm Heart sounds: S1 normal heart sound present and S2 normal heart sound present GI Palpation (GI): Soft to palpation and nontender Auscultation: normal bowel sounds Skin General skin exam: rashes and/or lesions noted Assessment & Plan Assessment & Plan (1) COPD (chronic obstructive pulmonary disease): Code(s): J44.9 - Chronic obstructive pulmonary disease, unspecified Category: Medical Qualifiers: COPD type: emphysema Emphysema type: centrilobular Qualified Code(s): J43.2 - Centrilobular emphysema (2) PREMA (obstructive sleep apnea): Code(s): G47.33 - Obstructive sleep apnea (adult) (pediatric) Category: Medical (3) Chronic respiratory failure: Comment: The significant emphysema, chronic stable COPD Code(s): J96.10 - Chronic respiratory failure, unspecified whether with hypoxia or hypercapnia Category: Medical Qualifiers: Respiratory failure complication: hypoxia Qualified Code(s): J96.11 - Chronic respiratory failure with hypoxia (4) Pulmonary nodule: Code(s): R91.1 - Solitary pulmonary nodule Category: Medical Plan restart Symbicort 160/4.52 puffs twice a day. (failed Breo,Dulera,Breztri, advair, stiolto, Asmanex, Trelegy, Breo, does not tolerate powdered inhalers) hold pulmomicort Spiriva 2 inhalation start Ohtuvayre stopped Atrovent as needed, monitor for anticholinergic syndrome continue oxygen supplementation during the daytime BRINA as needed (xopenex) PFTs continue PAP therapy (NIV), requesting download nasal therapy LDCT program follow-up in 4-6 weeks Orders: Orders PFT pulmonary function test Today J43.2 - Centrilobular emphysema Coding Level of Care Code Est Pt Level 4 (63964) Complex EM visit Add On G2211 Diagnoses Centrilobular emphysema J43.2 COPD type: emphysema Emphysema type: centrilobular PREMA (obstructive sleep apnea) G47.33 Chronic respiratory failure with hypoxia J96.11 Respiratory failure complication: hypoxia Pulmonary nodule R91.1 Time Spent (min) 18
== END 2024-11-03 15:07 | disposition home or self-care (01) ==
PROVIDERS: PCP Internal Medicine; Visit Provider Hospitalist
DX: J43.2 Centrilobular emphysema (principal); G47.33 Obstructive sleep apnea (adult) (pediatric); J96.11 Chronic respiratory failure with hypoxia; R91.1 Solitary pulmonary nodule
CPT/HCPCS: 99214

== ENCOUNTER 2024-12-10 13:22 | Outpatient (AMB) | payer OTHER, MEDICARE, SELFPAY ==
[2024-12-10 13:25] VITALS: BP 110/60; PULSE 105; O2SAT 98; BMI 25.6
--- NOTE | 2024-12-10 13:25 | MHC.OFFVIS ---
Vital Signs 12/10/24 13:25 Height 5 ft 6 in Weight 158 lb 11.725 oz BMI 25.6 BP 110/60 Blood Pressure Location Lt brachial Position Sitting Pulse 105 H Pulse Source Pulse Oximeter Pulse Oximetry (%) 98 Oxygen Delivery Method Room Air Intake Visit Reasons: COPD Allergies lamotrigine [From LAMICTAL] Allergy (Severe, Verified 12/10/24 13:28) agitation and anxiety with titration codeine [CODEINE] Allergy (Intermediate, Verified 12/10/24 13:28) INSOMNIA Penicillins [PENICILLINS] Allergy (Intermediate, Verified 12/10/24 13:28) RASH epinephrine [EPINEPHRINE] Adverse Reaction (Intermediate, Verified 12/10/24 13:28) Hypertension escitalopram [From LEXAPRO] Adverse Reaction (Intermediate, Verified 12/10/24 13:28) NIGHTMARES sertraline [From ZOLOFT] Adverse Reaction (Intermediate, Verified 12/10/24 13:28) NIGHTMARES sulfamethoxazole [From BACTRIM] Adverse Reaction (Intermediate, Verified 12/10/24 13:28) STOMACH UPSET HPI Comments Details: The patient is a 74-year-old gentleman known COPD and also depression. I did have the pleasure meeting him while he was in these [facility] trachea trach unit. He was following up with [place] [facility]. He decided to transfer his care over to [facility]. Overall he still continues to have significant shortness of breath. His sister see with him because she is concerned. His symptoms about moderate severity. He also complains of productive cough. He has been using Symbicort. He does have increased but is unlikely because of the powder gag exam. Therefore he stopped using it. He also has a rescue inhaler that he uses on a daily basis. He did have pulmonary function studies at some point. Here in the office we did taken for 6 minutes walk test the patient did qualify for oxygen. The patient is interested in pulmonary rehabilitation and therefore will looking to repeating his pulmonary function studies to get him approved for at. In the meantime he is still smoking. He has a greater than 30 pack-year history of smoking. Therefore he will be a great candidate for the lung cancer screening program. He did have his pulmonary function studies and also underwent a CT scan of the chest low-dose protocol demonstrated no significant changes except for extensive emphysema and small pulmonary nodules. He did have a CT scan of the chest to the lung cancer screening program. Demonstrated emphysema along with 1 mm pulmonary nodule. He have another CT scan in a year's time in October of 2020. 01/13/2024 the patient is here for a pulmonary follow-up visit. The patient has been having some difficulty with his inhalers. Initially he was on Symbicort Spiriva that were working well. Then the Symbicort was not available and he was placed on Breztri, but, that not work for him. Therefore he was switched over to Dulera and Spiriva. This appears to be helpful but seems like the Dulera back order and he can not get enough medication. And is struggling with that. The patient is also concerned about the inhaled cortical steroids. He does get tearful at times he does have an issue with mood disorder. He is wondering there is a way that the steroids can be decreased or stopped. I did encourage him to continue the steroid although will switch him to a inhaled steroid monotherapy inhaler and therefore the dose could be adjusted accordingly. In addition to that he is responded well to the Respimat device and therefore will switch him over to Stiolto. He has been using the oxygen with good effect. The oxygen concentrator has been affecting beneficial he continues participating in pulmonary rehabilitation at this time. 02/14/2024 the patient is here for a pulmonary follow-up visit. The patient has been having a hard time with his inhalers. He is pretty upset. He responded very well to the Symbicort after multiple trials he finally find a regimen that will work for him. He uses Symbicort and Spiriva. But, then his insurance will no longer cover the Symbicort and we switched him over to Breztri which she did not tolerate causing hoarseness and fatigue. Then, the patient try Breo and could not tolerate the powder. We switched him over to Dulera and he did not feel like it worked same way. Now he wants to go back on Symbicort. Will go ahead and request a prior approval to get him back on Symbicort since it was the only inhaler that has been affecting beneficial without significant adverse effects. He is very sensitive due to the inhalers due to his psychiatric history. Therefore, agree that we should try to get him covered on Symbicort. He so concerned because of his advanced COPD that is willing to pay [id number] for the Symbicort which is not sustainable. Continues use the oxygen with good effect. Otherwise will follow-up in 3-4 months. If he has any issues or if you have some difficulties getting him the medication then will discuss it further. 04/09/2024 the patient is here for a pulmonary follow-up visit. Overall he is doing fair. He is still having difficulty with breathing. Also having issues with sinusitis. After doing some research on his own he figured out that the Spiriva may be causing his sinusitis. Therefore he opts not to take it. He has been on multiple inhalers, but, some of them causing him to have adverse effects. He realized after using multiple inhalers that Breo will be his best option. Therefore I will send him Breo 100 mcg the pharmacy where he would use it once a day. He will stop the Spiriva at this time. The patient also has a nebulizer that he can use as needed. As far as sinusitis he has 2 course of antibiotics. Hopefully he starts feeling better. Will provide him some nasal sprays to help him with the nasal congestion and the sinus inflammation. The patient is also off the prednisone which is reassuring. Remind imaging studies standpoint the patient is participating in the lung cancer screening program. He just had a CT scan that we personally reviewed although has not been officially read. He has extensive emphysema but no worsening nodular densities to appreciate. 07/13/2024 the patient is here for a pulmonary follow-up visit. Overall he is doing a little better. He is tolerating the Pulmicort along with the Spiriva. The patient is also using the Xopenex as needed. Seems to be working for him. He feels like he needs additional bronchodilation her. He is trying failed multiple inhalers. I do believe Atrovent short-acting beta agonist would be a good option that he can use because of his issues with intolerance to beta agonist therapy. Will going to go ahead and requested at the pharmacy. May have to do a prior approval. If he tolerates the Atrovent then he can back off on the Xopenex that he is using frequently. The patient is also using the oxygen therapy with good effect. He is also using the PAP therapy with good effect. In the recent imaging studies to review at this time. He did have a CT chest through LDCT. RADS 1. He does have significant calcified Aortic valve. We will request an ECHO at this time. 09/01/2024 the patient is here for a pulmonary follow-up visit. Overall , doing well. He is looking to get back to pulmonary rehabilitation. He continues on the Spiriva and also has been using the Pulmicort inhaler with good effect. He is also having to use his rescue inhaler about 3 times a day because he does not tolerate a long-acting 1. He does have adjuvant inhaler but he has to be careful not to take too much anticholinergic medications because of his history of anticholinergic syndrome. Therefore he will monitor closely for any adverse effects. The patient did have an echocardiogram which we personally reviewed demonstrating mild aortic stenosis. Although was a limited study. And he also had a CT scan of the chest demonstrating extensive emphysema primarily in the upper lung zones. His sister was with him. We did talk about alternative therapies including lung volume reduction intervention and also the risks that come with that. The patient will read up on it in decide later if he wants to pursue that. For now he is going to start rehab in going to continue with his current respiratory medications. She also continues use the noninvasive ventilator at nighttime. I am going to request a download from his [employer] and also access on air view. He does have a hard time transitioning from the ventilator to his oxygen so will see if we can any adjustments that we can make. 11/03/2024 the patient is here for a pulmonary follow-up visit. He continues to struggle with his breathing. Significant shortness of breath. Moderate to severe. He does use oxygen all the time. He does not find that the Pulmicort inhaler has been helpful. He does not find that the Spiriva has been helpful. Feels like the adjuvant that is making it worse. He wants to go back to Symbicort. He can try 1 puff twice a day. He also has Xopenex that also he finds partially helpful. At this point the patient is medically maximize on respiratory therapy and he has tried and failed multiple inhalers. We did talk about nebulized long-acting muscarinic antagonist but the patient at this point will stay on the Spiriva. He is willing to start Ohtuvayre to provide further bronchodilation in view of his significant disease. Plan to follow-up in 4-6 weeks to see his response to therapy. At that point we can talk about additional interventions. Although we know that he has extensive emphysema and very limited pulmonary reserve. He will undergo pulmonary function studies so we can review and assess his progression. 12/10/2024 the patient is here for a pulmonary follow-up visit. The patient had issues with his breathing. He had to go to the hospital for COPD exacerbation. Since we last spoke we did start him on a new nebulized therapy, Ohtuvayre. But, the patient did not tolerate the medication. Did give him a lot of side effects. It is not clear if they worsen his breathing. But right now we did airways in his lung condition being so sensitive will hold off on trying the medication again. In the meantime the patient does respond well to the budesonide neb and he also has been using the Spiriva in the rescue inhaler multiple times a day. He does get about 4 hours from the albuterol that he seems to tolerate. He does not tolerate the long-acting beta agonist though. He is willing to try small dose of theophylline. I believe will try in the past. Will try to even as low dose in work slowly up to see if we can get him to an effective dose. I hope that this could be an effective medication for him. He also continues use the oxygen with good effect. We did look at his blood work and his blood gas was reassuring with a pCO2 of 47 mmHg. This is better than before. [facility] Medical History (Updated 05/22/24 @ 00:01 by Laury Gipson) CAD (coronary artery disease) Abnormal nuclear stress test Hypertension HLD (hyperlipidemia) Pneumonitis Chronic respiratory failure COPD (chronic obstructive pulmonary disease) Asthma Pulmonary nodule COVID-19 vaccine series completed Personal history of nicotine dependence Hx of small bowel obstruction Tardive dyskinesia Panic disorder History of major depression Generalized anxiety disorder IBS (irritable bowel syndrome) GERD (gastroesophageal reflux disease) Surgical History Stented coronary artery Hx of colonoscopy H/O bilateral inguinal hernia repair Hx of cholecystectomy Family History Father No problems noted. Mother No problems noted. Social History Household Members: Spouse and Children Household Members Other:: E[place] Housing: House Are you a primary health care attorney to a significant other at home: No Do you presently have visiting nurse or other home services: No Unable to assess alcohol history related to: Unknown Alcohol intake: never Comment: patient stable on ambulation Patient Tobacco Use Status: Former Tobacco user Tobacco use type: Cigarette Years Smoked: 35 e-Cigarette/Vaping Use: Never Used Second Hand Smoke Exposure: No service: No Sexual orientation: Lesbian/Triana/Homosexual Review of Systems Const Denies daytime sleepiness, Reports difficulty sleeping and Denies night sweats ENT Denies change in voice, Reports dry mouth, Denies mouth pain, Reports nasal congestion, Reports nasal discharge and Reports nasal obstruction Card Denies chest pain, Reports dyspnea and Reports dyspnea on exertion Resp Reports cough, Denies pain on inspiration, Denies pain with cough, Reports dyspnea, Reports dyspnea on exertion and Reports wheezing GI Denies abdominal pain Musc Denies no additional complaints and Reports abnormal gait Neuro Reports abnormal gait Psych Reports depression, Denies homicidal ideation and Denies suicidal ideation Ross/Lymph Denies easy bleeding and Denies lymphadenopathy Aller/Immun Reports wheezing Physical Exam Vital Signs: Last Vital Signs Pulse 105 H 12/10/24 13:25 BP 110/60 12/10/24 13:25 Pulse Ox 98 12/10/24 13:25 Oxygen Delivery Method Room Air 12/10/24 13:25 BMI result Body Mass Index 25.6 Const General: alert Nutritional Appearance: thin Neck Neck: Yes normal visual inspection, Yes full ROM and Yes no lymphadenopathy Chest Chest palpation & inspection: normal inspection of the chest, no localized rib tenderness and no tenderness Resp Effort & Inspection: normal respiratory effort and prolonged expiratory phase Auscultation: no crackles, no rales, no rhonchi and diminished lung sounds Cardio Rate: regular rate Rhythm: regular rhythm Heart sounds: S1 normal heart sound present and S2 normal heart sound present GI Palpation (GI): Soft to palpation and nontender Auscultation: normal bowel sounds Skin General skin exam: rashes and/or lesions noted Assessment & Plan Assessment & Plan (1) COPD (chronic obstructive pulmonary disease): Code(s): J44.9 - Chronic obstructive pulmonary disease, unspecified Category: Medical Qualifiers: COPD type: emphysema Emphysema type: centrilobular Qualified Code(s): J43.2 - Centrilobular emphysema (2) PREMA (obstructive sleep apnea): Code(s): G47.33 - Obstructive sleep apnea (adult) (pediatric) Category: Medical (3) Chronic respiratory failure: Comment: The significant emphysema, chronic stable COPD Code(s): J96.10 - Chronic respiratory failure, unspecified whether with hypoxia or hypercapnia Category: Medical Qualifiers: Respiratory failure complication: hypoxia Qualified Code(s): J96.11 - Chronic respiratory failure with hypoxia (4) Pulmonary nodule: Code(s): R91.1 - Solitary pulmonary nodule Category: Medical Plan stopped Symbicort 160/4.52 puffs twice a day. (failed Breo,Dulera,Breztri, advair, stiolto, Asmanex, Trelegy, Breo, does not tolerate powdered inhalers) continue Pulmomicort BID Spiriva 2 inhalation daily stopped Ohtuvayre due to side effects stopped Atrovent as needed, monitor for anticholinergic syndrome continue oxygen supplementation during the daytime BRINA as needed (xopenex) start low dose theophylline continue PAP therapy (NIV), requesting download nasal therapy LDCT program follow-up in 8-12 weeks Orders: Orders Phosphorus Today J43.2 - Centrilobular emphysema Theophylline Today J43.2 - Centrilobular emphysema Basic Metabolic Panel Today J43.2 - Centrilobular emphysema Magnesium Today J43.2 - Centrilobular emphysema Vitamin D 25-OH (D2 and D3) Today J43.2 - Centrilobular emphysema Medications: New theophylline ER 200 mg (2 x 100 mg) PO Q12H 120 tabs 3RF 30 days Coding Level of Care Code Est Pt Level 4 (01502) Complex EM visit Add On G2211 Diagnoses Centrilobular emphysema J43.2 COPD type: emphysema Emphysema type: centrilobular PREMA (obstructive sleep apnea) G47.33 Chronic respiratory failure with hypoxia J96.11 Respiratory failure complication: hypoxia Pulmonary nodule R91.1 Time Spent (min) 16
--- OUTSIDE RECORDS SUMMARY | 2024-12-10 15:51 | XMS_ITS ---
Author Organization [facility] Address [address] [facility] [address] [place] [phone] Care Team Providers Care Accounts Receivable Specialist Name Role Phone SUNDAY PATIÑO Primary Care Provider Aime Munoz Jr Unavailable [phone] Casey GIL, Nacho Unavailable Unavailable REASON FOR VISIT Patient presents today for abdominal pain Encounters Encounter Location Date Provider Diagnosis [facility] [address] [facility] [address] [place] [phone] 12/03/2024 Aime May Jr Plan Of Treatment No Information Progress Notes * CHANTELL HUDSONOREDOB:[birth year] (74 yo M)Acc No.[id number]:12/03/2024 Progress Notes Patient:?DAILLA HUDSON Provider:?Aime May MD :1950???Age:74 Y???Sex:Male Manny e:12/03/2024 Address:[address] [place], [place] [id number] Pcp:SUNDAY PATIÑO Subjective: * Chief Complaints: * ???1. Patient presents today for abdominal pain. * Medical History:? Objective: * Vitals:? Assessment: Plan: * Treatment: * * The named appointment provid er may or may not be the originator of this progress note, and it is not deemed complete until electronically signed by the appointment provider. Sign off status: Pending * Provider:?Aime May MD Date:?0 12/03/2024 Generated for Printi ng/Faxing/eTransmitting on:?12/10/2024 03:51 PM EDT
--- OUTSIDE RECORDS SUMMARY | 2024-12-10 15:51 | XMS_ITS ---
Author Organization [facility] Address [address] [place] [phone] Care Team Providers Care Field Technical Specialist Name Role Phone SUNDAY PATIÑO Primary Care Provider Aime Munoz Jr Casey GIL, Nacho Unavailable Unavailable REASON FOR VISIT abd pain Encounters Encounter Location Date Provider Diagnosis [facility] [address] [facility] [address] [place] [phone] 06/29/2024 Aime May Jr Plan Of Treatment No Information Progress Notes * CHANTELL HUDSONOREDOB:[birth year] (74 yo M)Acc No.[id number]:06/29/2024 Progress Notes Patient:?DALILA HUDSON Provider:?Aime May MD :1950???Age:74 Y???Sex:Male Manny e:06/29/2024 Address:[address] [place], [place] [id number] Pcp:SUNDAY PATIÑO Subjective: * Chief Complaints: * ???1. Abd pain. * Medical History:? Objective: * Vitals:? Assessment: Plan: * Treatment: * * The named appointment provid er may or may not be the originator of this progress note, and it is not deemed complete until electronically signed by the appointment provider. Sign off status: Pending * Provider:?Aime May MD Date:?1 Generated for Juanita eden/Jesús/eTransmitting on:?12/10/2024 03:50 PM EDT
--- OUTSIDE RECORDS SUMMARY | 2024-12-10 15:51 | XMS_ITS | Data Portability ---
Author Organization [facility], [address] Address [address] [place] [address] Care Team Providers Care Production Gear Cutter Name Role Phone [facility] Network Designer Assessment No assessment recorded. Plan of Treatment Reminders Order Date Submit Date Provider Last Modified By Organization Details Last Modified Time Details Appointments None recorded. Lab None recorded. Referral None recorded. Procedures None recorded. Surgeries None recorded. Imaging None recorded. Medication Orders Zithromax Z-Robinson 250 mg tablet 2023 024 SALOME [id number], [address] [place], [address], 19:36:28 dexamethaso ne sodium phosphate (PF) 10 mg/mL injection solution 2023 024 [email or web address] Not available 18:12:37 prednisone 20 mg tablet 2023 024 [email or web address] [id number], [address] [place], [address], 18:48:33 Patient TargetsNo targets recorded. Patient Instructions Encounter Date Encounter Id Patient Instructions Last Modified By Organization Details Last Modified Time 03/08/2024 [id number] chronic obstructive pulmonary disease (COPD) flare-ups: care instructions Not available 03/08/2024 18:12:37 peak flow* SALOME Not available 03/09 14:22:07 respiration improved post steroid injection. peak flow improved Not available 03/08/2024 18:12:14 04/02/2024 [id number] Acute Sinusitis: Care Instructions Not available 04/02/2024 19:36:26 Reason for Referral None Reported. Results Created Date Observation Date Name Description Value Unit Range Abnormal Flag Note LastModifiedBy Organization Detail LastModifiedTime 03/09/20 24 03/09/2024 peak flow* Pre (L/min) 50 Not Available [address] [place] [address] [address] [place], [address], 03/08/2024 18:12:21 03/09/20 24 03/09/2024 peak flow* Post (L/min) 120 Not Available [address] [facility] [address] [place], [address], 03/08/2024 18:12:21 03/09/20 24 03/09/2024 peak flow* Oxygen Saturation 98 Not Available [id number] [place] [address] [place] [address], [address], 03/08/2024 18:12:21 Result Notes None recorded. Problems Name Problem SNOMED Code Status Onset Date Resolution Date Notes Provider Name and Address Organization Details Recorded Time Chronic obstructive pulmonary disease 78281224 Active 2023 Kassidy linder PA - [facility] 4 16:01:39 Hypertensive disorder 09280809 Active 2023 Kassidy linder PA - [facility] 4 16:01:44 Acute exacerbation of chronic obstructive pulmonary disease 010929968 Active 2023 Letitia Carroll NP [address] [facility] [place], [address] , PA - [facility] 4 16:10:22 Anxiety 98218018 Active LUCILA linder, PA - [facility] 4 18:49:23 Irritable bowel syndrome 62084354 Active LUCILA linder, PA - [facility] 4 18:49:29 Acute sinusitis 03829832 Active 2023 Letitia Carroll NP [address] [place], [address] , [place] - [facility] 4 19:36:12 Notes:stomach spasms Problem Notes None recorded. Medical Equipment None Reported. Allergies Allergen ID Allergen Name Allergen Category Reaction Reaction Severity Criticality Documentation Date Start Date Code Code System Note Provider Name and Address Organization Details Recorded Time 911819 Product containin g penicilli n (product) medicatio n Not available Not available Not available 03/08/2024 17652 [facility] Kassidy linder, PA - [facility] 4 16:00:55 [...] /min 26 /min 170.18 cm 26 kg/m2 46018.3 3 g 96.7 [degF] 136 mm[Hg] 82 mm[Hg] Kassidyramírez Camarenanahun PA - [facility] 4 16:03:49 Date Recorded Body height Body mass index (BMI) Body weight Oxygen saturation Oxygen saturation in Arterial blood by Pulse oximetry Heart rate Respiratory rate Body temperature Systolic blood pressure Diastolic blood pressure Provider Name and Address Organization Details Last Updated DateTime 4 170.18 cm 26 kg/m2 13178.3 3 g 97 % 97 % 94 /min 18 /min 98.2 [degF] 116 mm[Hg] 75 mm[Hg] LUCILA BRANDT PA - [facility] 4 18:50:29 Social History Question Answer Notes LastModified [...] Influenza, adjuvanted, quadrivalent, PF 2 completed Kassidy Marier null, PA - [facility] 03/08/2024 16:07:11 Influenza, adjuvanted, quadrivalent, PF 3 completed Kassidy Marier null, PA - [facility] 03/08/2024 16:07:11 Influenza, adjuvanted, quadrivalent, PF 1 completed Kassidy Marier null, PA - [...] PF, 30 mcg/0.3 mL dose 1 completed Kassidy Marier null, PA [...] SNOMED-CT Code Diagnosis ICD10 Code Diagnosis Note [id number] [facility] [address] [place] [address] 11/16/2016 11:48:19 11/16/2016 12:20:51 [id number] [facility] [address] [address] 06/22/2017 16:07:16 06/22/2017 17:22:21 [id number] [facility] [address] [address] 01/14/2018 09:52:41 01/14/2018 11:41:28 [id number] [facility] [address] [address] 03/24/2016 15:44:49 03/24/2016 17:14:06 [id number] [facility] [address] [place] [address] 04/07/2018 11:09:50 04/07/2018 11:49:23 [id number] [place] [address] [address] [address] 03/08/2024 15:58:48 03/08/2024 18:30:48 Acute exacerbation of chronic obstructive pulmonary disease 546509009 J44.1 Chronic obstructiv e pulmonary disease (COPD) [...] if not diagnosed and treated sania mcbride. [id number] [place] [address] [address] 04/02/2024 17:56:27 04/02/2024 19:48:45 Acute sinusitis 23974095 J01.90 Health Concerns Section Related Observation LastModified by Organization Detai ls LastModified Time None Recorded Concern Status LastModified by Organization Details LastModified Time None Recorded Advance Directives Directive None Recorded Payers Encounter Date Sequence Insurance Name Policy Number Policy Teresa Covered Member ID Teresa Member ID Guarantor Name 06/22/2017 1 [facility] [id number] Jameel Rakesh [id number] Jameel Rakesh 01/14/2018 1 [facility] [id number] Jameel Rakesh [id number] Jameel Rakesh 04/07/2018 1 [facility] [id number] Jameel Rakesh [id number] Jameel Rakesh 03/08/2024 1 [employer] [id number] Emeka Howe [id number] Jameel Rakesh 03/08/2024 2 MEDICARE [employer] Jameel Rakesh [id number] Jameel Rakesh 04/02/2024 1 [employer] [id number] Emeka Howe [id number] Jameel Rakesh Notes Date Note Type Note [...] Carroll NP [address] [place], [address], [employer] 03/08/2024 18:12:46 4 text/html Sinus Complaints UCReported bypatient.Location:pain behind the [...] Carroll NP [address] [place], [address], [facility] 04/03/2024 16:53:33
--- OUTSIDE RECORDS SUMMARY | 2024-12-10 15:51 | XMS_ITS ---
Author Organization [facility] Address [address] [place] [address] Care Team Providers Care Delivery Professional Name Role Phone SUNDAY PATIÑO Primary Care Provider Aime Munoz Jr Casey GIL, Nacho Unavailable Unavailable REASON FOR VISIT cancel appt Encounters Encounter Location Date Provider Diagnosis [facility] [address] [facility] [address] [place] [phone] 12/01/2024 Aime May Jr Plan Of Treatment No Information Progress Notes * ZEN HUDSONOB:[birth year] (74 yo M)Acc No.[id number]:12/01/2024 Patient:?DALILA HUDSON :1950???Age:74 Y???Sex:Male Address:[address] [place] [address], [address] * true * Date:? Generated for Jitendrai meek/Jesús/eTransmitting on:?12/10/2024 03:51 PM EDT
--- OUTSIDE RECORDS SUMMARY | 2024-12-10 15:52 | XMS_ITS | Clinical Summary ---
Author Organization [facility] it Address [address] [place] [address] Care Team Providers Care Home Help Aide Name Role Phone Jacob Loza MD Primary Care Provider [phone] Medications amLODIPine (NORVASC) 5 mg tablet TAKE 1 TABLET BY MOUTH EVERY DAY 90 tablet 1 11/02/2024 Active Surgical History Surgery Date Site/Laterality Comments CHOLECYSTECTOMY 2004 PROCEDURE: HISTORICAL CHOLECYSTECTOMY HERNIA REPAIR 02/19/2019 Bilateral PROCEDURE: HISTORICAL HERNIA REPAIR/ING CARDIAC CATHETERIZATION PROCEDURE: HISTORICAL CARDIAC CATH; COMMENT: stent of circumflex 1999 Medical History Medical History Date Comments Asthma, exercise induced 05/19/2019 DX:Asth ma, exercise induced CAD (coronary artery disease) 02/02/2019 DX :CAD (coronary artery disease); COMMENT: S/p stent circumflex [facility] COPD (chronic obstructive pu lmonary disease) ([facility]) DX:COPD (chronic obstructive pulmonary disease) ([facility]); COMMENT: Sees [facility] Dr. Baum Severe emphysema per PFTs 04/13/19 with FEV1 26% of predicte dvalue, FVC 47%, ratio 55%. Essential hypertension 03/09/2019 DX:Essent ial hypertension GERD (gastroesophageal reflu x disease) 01/27/2019 DX:GERD (gastroesophageal re flux disease); COMMENT: With duodenitis Hiatal hernia 01/27/2019 DX:Hiatal hernia ; COMMENT: Referred to surg by GI IBS (irritable bowel syndrome) D X:IBS (irritable bowel syndrome) Recurrent major depression-s evere ([facility]) 05/06/2019 DX:Recurrent major depressio n-severe ([facility]); COMMENT: Inpatient 2018, 2019 course of ECT, OP C OP team, SSRI intolerances Severe anxiety with [...] Recorded Sex Assigned at Not on file Legal Sex Male 12:17 PM EST Gender Identity Not on file Sexual Orientation [...] Health Maintenance Due Date Last Done Comments DTaP,Tdap,and Td Vaccines (1 - Tdap) 02/02/1971 Pneumococcal Vaccine: 50+ Years (1 of 2 - PCV) 02/02/1971 Zoster Vaccines (1 of 2) 02/02/2002 [...] patient's age to complete this topic Meningococcal B Vacine Aged Out No lo nger eligible based on patient's age to complete this topic RSV Immunization Patients Under 20 months Aged Out No longer eligible b ased on patient's age to complete this topic Varicella Vaccines Aged Out No longer eligible based on patient's age to complete this topic Procedures Procedure Name Priority Date/Time Associated Diagnosis Comments EXTERNAL CLINICAL LAB 10/29/2024 from Last 3 Months Results * External clinical lab (10/29/2024) us Provider [facility] BLOOD ORDERABLES Fin al Result from Last 3 Months Care Teams Home Help Aide Relationship Specialty Start Date End Date Jacob Loza MD PCP - General Internal Medicine 04/27/21
--- OUTSIDE RECORDS SUMMARY | 2024-12-10 15:52 | XMS_ITS | Patient Health Record ---
Author Organization [facility] Address [address] [place] [address] Care Team Providers Care Crane Follower Name Role Phone SUNDAY PATIÑO Primary Care Provider Unavailnava e Aime May Jr Unavailable [phone] Casey GIL, Nacho Unavailable Unavailable Allergies Allergen (clinical drug ingredient) Drug/Non Drug Allergy documented on EMR Reaction Allergy Type Onset Date Status azithromycin Azithromycin Unknown Drug Allergy A ctive penicillin G Penicillin G Sodium Unknown Drug Allergy Active EPINEPHrine Unknown Drug Allergy Activ e sulfamethoxazole / trimethoprim Bactrim Unknown Drug Allergy Active codeine Codeine Unknown Drug Allergy Active Reason For Referral No Information Medications Medication SIG (Take, Route, Frequency, Duration) Notes Start Date End Date Status Dicyclomine HCl 10 MG TAKE 3 CAPSULES BY MOUTH 3 TIMES A DAY for 90 Active Albuterol Sulfate 108 (90 Base) MCG/ACT 1 puff as needed Inhalation every 4 hrs Active Ativan 0.5 MG 1 tablet at bedtime as needed Orally Once a day Active Nortriptyline HCl 25 MG 1 capsule Orally Once a day Active amLODIPine Besylate 10 MG TAKE 1 TABLET BY MOUTH EVERY DAY Oral for 90 Active Famotidine 40 MG 1 tablet Orally Twic e a day for 30 day(s) 03/09/2022 Active Levalbuterol Tartrate 45 MCG/ACT Inhalation for 17 Active LORazepam 1 MG Oral for 30 Act shobha Hyoscyamine Sulfate 0.125 MG Use 1 or 2 Sublingual every 4 to 6 hrs as needed for abdominal cramps/discomfort for 30 days 05/05/2024 Active Immunizations Vaccine Route Administration Date Status Comme nts Influenza Unknown 05/24/2019 Administered Influenza Unknown 06/23/2019 Administered Influenza Unknown 08/01/2021 Administered Influenza Unknown 08/23/2022 Administered Influenza Unknown 08/13/2023 Administered Social History Tobacco Use: Social History Observation Description Date Details (start date - stop date) Former Smoker NA - NA Tobacco Use/Smoking Question Answer Notes Patient is a former smoker How long has it been since you last smoked? 5-10 years Alcohol Screen Question Answer Notes Did you have a drink containing alcohol in the p ast year? No Points 0 Interpretation Negative Problems Problem Type SNOMED Code ICD Code Onset Dates Problem Status W/U Status Risk Notes Problem 480751745 Irritable bowel syndrome with diarrhea (K58.0) Active confirmed Problem 932312357 Elevated LFTs (R79.89) Active confirmed Problem 848483414 Gastroesophageal reflux disease without esophagitis (K21.9) Active confirmed Problem Irritable bowel syndrome (66086719) Irritable bowel syndrome with both constipation and diarrhea (K58.0) Active confirmed Vital Signs Temperature 97.5 degrees Fahrenheit 06/04/2024 Blood pressure diastolic 00 mm Hg 06/04/2024 Height 67 in 06/04/2024 Blood pressure systolic 000 mm Hg 06/04/2024 Weight 149 lb 4 oz lbs 06/04/2024 BMI 23.37 kg/m2 06/04/2024 Encounters Encounter Location Date Provider Diagnosis [facility] [address] [place] [phone] 06/04/2024 Aime May Jr Irritable bowel syndrome with both constipation and diarrhea K58.0 [facility] [address] [place] [address] 05/04/2024 Aime May Jr [facility] [address] [place] [address] 05/20/2024 Aime May Jr [facility] [address] [place] [address] 06/05/2024 Aime May Jr [facility] [address] [place] [phone] 12/01/2024 Aime May Jr Assessments Encounter Date Diagnosis (ICD Code) Assessment Notes Treatment Notes Treatment Clinical Notes Section Notes 06/04/2024 Irritable bowel syndrome with both constipation and diarrhea (ICD-10 - K58.0) Irritable bowel syndrome material was printed We discussed his symptoms today. We discussed the connection between IBS and anxiety. At this time, he appears to be doing well with dicyclomine and we'll continue 10 mg t.i.d. since this regimen and is currently working for him. Referral is made for further evaluation regarding a family history of mast cell activation disorder. Followup will be in 6 months. Plan Of Treatment Pending Test Test Name Order Date US ABD 05/01/2021 Liver Panel 05/01/2021 Insurance Providers Payer Name Payer Address Payer Phone Subscriber Number Group Number Insured Name Patient Relationship to Insured Coverage Start Date Coverage End Date [employer] ([employer]) [address] [place] [address] [phone] [id number] DALILA HUDSON Self - patient is the insured MEDICARE OF [place] [address] [facility] [address] [phone] [id number] DALILA HUDSON Self - patient is the insured Medical (General) History Medical History History ICD Code CAD, history of CT and stent placement Hypertension COPD Colonoscopy 08/09/21 2 adeno mas, no evidence of Crohn's disease, five-year followup Irritable bowel syndrome Gastroesophageal reflux dise ase, EGD 12/09, no H. pylori or Barton's esophagus Anxiety Surgical History Surgery Date(Month/Year) Inguinal herniorrhaphy 2019 Cholecystectomy 2006 Hospitalization History Reason Date(Month/Year) bowel blockage 2020
== END 2024-12-10 13:56 | disposition home or self-care (01) ==
LOC: HO.HPS 13:23
PROVIDERS: PCP Internal Medicine; Visit Provider Hospitalist
DX: J43.2 Centrilobular emphysema (principal); G47.33 Obstructive sleep apnea (adult) (pediatric); J96.11 Chronic respiratory failure with hypoxia; R91.1 Solitary pulmonary nodule
CPT/HCPCS: 99214

== ENCOUNTER → 2024-12-10 13:22 | Outpatient (BNVA) | payer OTHER, MEDICARE, SELFPAY | PROVIDERS: PCP Internal Medicine; Visit Provider Hospitalist | DX: I27.20 Pulmonary hypertension, unspecified (principal); J43.2 Centrilobular emphysema ==

== ENCOUNTER 2024-12-23 13:00 | Outpatient (AMB) | payer OTHER, MEDICARE, SELFPAY ==
[2024-12-23 13:02] VITALS: BP 132/70; PULSE 118; O2SAT 96; BMI 25.5
--- NOTE | 2024-12-23 13:02 | A.OFFVIS_ITS ---
Vital Signs 12/23/24 13:02 Height 5 ft 6 in Weight 158 lb BMI 25.5 BP 132/70 Blood Pressure Location Rt brachial Position Sitting Pulse 118 H Pulse Source Pulse Oximeter Pulse Oximetry (%) 96 Oxygen Delivery Method Room Air Intake Visit Reasons: Hospital f/u COPD Steak Tenderizer Machine Required: No Wire Harness Assembler: Wire Harness Assembler offered & declined Allergies lamotrigine [From LAMICTAL] Allergy (Severe, Verified 12/23/24 13:10) agitation and anxiety with titration codeine [CODEINE] Allergy (Intermediate, Verified 12/23/24 13:10) INSOMNIA Penicillins [PENICILLINS] Allergy (Intermediate, Verified 12/23/24 13:10) RASH epinephrine [EPINEPHRINE] Adverse Reaction (Intermediate, Verified 12/23/24 13:10) Hypertension escitalopram [From LEXAPRO] Adverse Reaction (Intermediate, Verified 12/23/24 13:10) NIGHTMARES sertraline [From ZOLOFT] Adverse Reaction (Intermediate, Verified 12/23/24 13:10) NIGHTMARES sulfamethoxazole [From BACTRIM] Adverse Reaction (Intermediate, Verified 12/23/24 13:10) STOMACH UPSET Medication List - Last Reconciled 12/23/24 by Kaylan Wheeler LPN amlodipine 5 mg PO DAILY blood pressure test kit-medium As directed budesonide 90 mcg/actuation (Pulmicort Flexhaler) 1 inh inhalation BID cholecalciferol (vitamin D3) (Vitamin D3) 50 mcg PO DAILY dicyclomine 20 mg PO TIDAC PRN famotidine 10 mg (1/2 x 20 mg) PO BID 30 days levalbuterol HCl 1.25 mg (3 mL) inhalation BID 30 days levalbuterol tartrate 45 mcg/actuation 2 puffs inhalation Q4H PRN lorazepam 1 tab PO TID PRN nebulizers As directed nortriptyline 25 mg PO BEDTIME Oxygen Home Use As directed polyethylene glycol 3350 (Miralax) 17 grams PO DAILY PRN theophylline ER 200 mg (2 x 100 mg) PO Q12H 30 days tiotropium bromide 2.5 mcg/actuation (Spiriva Respimat) 2 inhalations inhalation DAILY 30 days HPI HPI Hospital f/u COPD: Details: Jameel is a pleasant 74 year old male, former 30 pack year smoker, quit 5 years ago with underlying very severe COPD, CAD , HTN, HLD, PREMA on NIV, depression and anxiety. At baseline, he is moderately controlled on Pulmicort, Spiriva, Levalbuterol neb, and prescription for Ohtuvayre recently approved. He was also started on Theophylline but has not started yet. He is under the care of Dr. Torres and presents today for hospital follow up. He was evaluated on 12/20 at urgent care however tachycardic sent to [facility] for further evaluation for 3 day h/o chest tightness. CXR unremarkable. Troponins equivocal which have been in the past, Ddimer negative and no leukocytosis. Ultimately he was discharged with 60 mg prednisone x 5 days. He reports dyspnea and wheezing have improved since initiating prednisone however once he discontinues symptoms recur shortly after. Denies chest congestion or cough. He has been monitoring oxygen saturation <92% on room air, but has supplemental oxygen PRN. He has been attending pulmonary rehab and has significantly benefitted from this. [facility] Medical History (Updated 12/23/24 @ 16:04 by Re Gordillo NP) CAD (coronary artery disease) Abnormal nuclear stress test Hypertension HLD (hyperlipidemia) Pneumonitis Chronic respiratory failure COPD (chronic obstructive pulmonary disease) Asthma Pulmonary nodule COVID-19 vaccine series completed Personal history of nicotine dependence Hx of small bowel obstruction Tardive dyskinesia Panic disorder History of major depression Generalized anxiety disorder IBS (irritable bowel syndrome) GERD (gastroesophageal reflux disease) Surgical History Stented coronary artery Hx of colonoscopy H/O bilateral inguinal hernia repair Hx of cholecystectomy Family History Father No problems noted. Mother No problems noted. Social History Household Members: Spouse and Children Household Members Other:: Emeka Housing: House Are you a primary family day care provider to a significant other at home: No Do you presently have visiting nurse or other home services: No Unable to assess alcohol history related to: Unknown Alcohol intake: never Comment: patient stable on ambulation Patient Tobacco Use Status: Former Tobacco user Tobacco use type: Cigarette Years Smoked: 35 e-Cigarette/Vaping Use: Never Used Second Hand Smoke Exposure: No service: No Sexual orientation: Lesbian/Triana/Homosexual Review of Systems Const Denies chills, Denies excessive sweating, Denies fever(s), Denies headache(s) and Denies night sweats Eyes Denies dry eyes, Denies irritation and Denies itchy eyes ENT Reports Normal hearing present, Denies headache(s), Denies nasal congestion, Denies nasal discharge, Denies post nasal drip and Denies sore throat Card Denies chest pain, Denies chest pain at rest, Denies chest pain with activity, Denies claudication, Denies leg edema, Denies orthopnea and Denies paroxysmal nocturnal dyspnea Resp Denies chest congestion, Denies cough, Denies excessive phlegm production, Denies pain on inspiration, Denies pain with cough and Denies stridor Musc Denies myalgias Neuro Reports Normal hearing present and Denies headache(s) Endo Denies excessive sweating Ross/Lymph Denies lymphadenopathy Aller/Immun Denies itchy eyes and Denies seasonal rhinorrhea Physical Exam Vital Signs: Last Vital Signs Pulse 118 H 12/23/24 13:02 BP 132/70 12/23/24 13:02 Pulse Ox 96 12/23/24 13:02 Oxygen Delivery Method Room Air 12/23/24 13:02 BMI result Body Mass Index 25.5 Const General: cooperative, healthy appearing, comfortable, no acute distress and alert Orientation/consciousness: patient oriented x3 Limitations: no limitations HEENT Head: Yes normal to inspection, Yes normocephalic and Yes atraumatic Ears: hearing grossly normal bilaterally and external ears normal Eyes General: appearance normal, both eyes and all related structures Eyelids: Yes eyelids normal Sclerae: sclerae normal EOM: EOMs intact bilaterally Neck Neck: Yes normal visual inspection and Yes no lymphadenopathy Lymphatic: no lymphadenopathy noted Chest Chest palpation & inspection: normal inspection of the chest Resp Effort & Inspection: normal respiratory effort, able to speak in complete sentences, no audible wheezes, no cough, no stridor, not tachypneic, no tripod positioning, no use of accessory muscles and prolonged expiratory phase Auscultation: diminished lung sounds Cardio Jugular venous distension: no JVD Rate: regular rate Rhythm: regular rhythm Skin Other: warm, dry General skin exam: no rashes or lesions noted Neuro General: patient oriented x3 Cranial nerves: Yes Normal hearing present Cognition (Neuro): normal cognition Gait exam (Neuro): Normal gait present Extrem General: Yes normal to inspection, Yes capillary refill normal, Yes no clubbing, cyanosis or edema and Yes no pedal edema Psych Appearance: grossly normal and well kempt Speech and movement: Normal speech and movement present and Clear speech present Affect: normal affect Attitude: cooperative Thought process: Normal thought process present Thought content: Normal thought content present Insight: Good insight present (Psych) Judgement: Good judgement present (Psych) Assessment & Plan Assessment & Plan (1) COPD (chronic obstructive pulmonary disease): Code(s): J44.9 - Chronic obstructive pulmonary disease, unspecified Category: Medical Qualifiers: COPD type: emphysema Emphysema type: centrilobular Qualified Code(s): J43.2 - Centrilobular emphysema (2) PREMA (obstructive sleep apnea): Code(s): G47.33 - Obstructive sleep apnea (adult) (pediatric) Category: Medical (3) Chronic respiratory failure: Code(s): J96.10 - Chronic respiratory failure, unspecified whether with hypoxia or hypercapnia Category: Medical Qualifiers: Respiratory failure complication: hypoxia Qualified Code(s): J96.11 - Chronic respiratory failure with hypoxia (4) Pulmonary nodule: Code(s): R91.1 - Solitary pulmonary nodule Category: Medical Plan Patient has tried and failed multiple ICS/LABA combinations as well as Breztri/Trelegy for likely LABA component as he would develop significant tremors, palpitations and tachycardia. He has been using Pulmicort 90mcg one inhalation BID, will increase to Pulmicort 180 mcg 2 inhalations BID and given prednisone taper, currently on prednisone 60 mg prescribed by [facility] ED. Patient agreeable to start Theophylline once completes prednisone. Encouraged use of flutter valve when experiencing chest congestion after nebulizer. Patient aware to call if symptoms do not improve. He is enrolled in the lung screening program, prior LDCT 04/15 revealed stable scattered pulmonary nodules <2mm. He has upcoming LDCT scheduled for 03/2025. Medications: New budesonide 180 mcg/actuation (Pulmicort Flexhaler) 2 inhalations inhalation BID 1 ea 6RF prednisone see taper instructions 50 mg x 3 days, 40 mg x 3 days, 30x 3 days, 20 mg x 3 days, 10x 3 days 10 mg PO DIRECTED 45 tabs 0RF Coding Level of Care Code Est Pt Level 4 (13082) Complex EM visit Add On G2211 Diagnoses Centrilobular emphysema J43.2 COPD type: emphysema Emphysema type: centrilobular PREMA (obstructive sleep apnea) G47.33 Chronic respiratory failure with hypoxia J96.11 Respiratory failure complication: hypoxia Pulmonary nodule R91.1
--- OUTSIDE RECORDS SUMMARY | 2024-12-23 15:38 | XMS_ITS | Data Portability ---
Author Organization [facility], [address] Address [address] [place] [address] Care Team Providers Care Boom Stick Man Name Role Phone [facility] Lens Molder Assessment No assessment recorded. Plan of Treatment Reminders Order Date Submit Date Provider Last Modified By Organization Details Last Modified Time Details Appointments None recorded. Lab None recorded. Referral None recorded. Procedures None recorded. Surgeries None recorded. Imaging None recorded. Medication Orders Zithromax Z-Robinson 250 mg tablet 2023 024 SALOME [id number], [address] [place], [address], 19:36:28 dexamethaso ne sodium phosphate (PF) 10 mg/mL injection solution 2023 024 [email or web address] Not available 18:12:37 prednisone 20 mg tablet 2023 024 [email or web address] [id number], [address] [place], [address], 18:48:33 Patient TargetsNo targets recorded. Patient Instructions Encounter Date Encounter Id Patient Instructions Last Modified By Organization Details Last Modified Time 03/08/2024 [id number] chronic obstructive pulmonary disease (COPD) flare-ups: care instructions Not available 03/08/2024 18:12:37 peak flow* SALOME Not available 03/09 14:22:07 respiration improved post steroid injection. peak flow improved Not available 03/08/2024 18:12:14 04/02/2024 [id number] Acute Sinusitis: Care Instructions Not available 04/02/2024 19:36:26 Reason for Referral None Reported. Results Created Date Observation Date Name Description Value Unit Range Abnormal Flag Note LastModifiedBy Organization Detail LastModifiedTime 03/09/20 24 03/09/2024 peak flow* Pre (L/min) 50 Not Available [address] [place] [address] [address] [place], [address], 03/08/2024 18:12:21 03/09/20 24 03/09/2024 peak flow* Post (L/min) 120 Not Available [address] [facility] [address] [place], [address], 03/08/2024 18:12:21 03/09/20 24 03/09/2024 peak flow* Oxygen Saturation 98 Not Available [address] [place] [address] [place] [address], [phone], 03/08/2024 18:12:21 Result Notes None recorded. Problems Name Problem SNOMED Code Status Onset Date Resolution Date Notes Provider Name and Address Organization Details Recorded Time Chronic obstructive pulmonary disease 25009762 Active 2023 Kassidy linder PA - [facility] 4 16:01:39 Hypertensive disorder 01584273 Active 2023 Kassidy linder PA - [facility] 4 16:01:44 Acute exacerbation of chronic obstructive pulmonary disease 711438781 Active 2023 Letitia Carroll NP [address] [place], [address] , PA - [facility] 4 16:10:22 Anxiety 91607348 Active LUCILA linder, PA - [facility] 4 18:49:23 Irritable bowel syndrome 46451018 Active LUCILA linder, PA - [facility] 4 18:49:29 Acute sinusitis 03229810 Active 2023 Letitia Carroll NP [address] [place], [address] , [place] - [facility] 4 19:36:12 Notes:stomach spasms Problem Notes None recorded. Medical Equipment None Reported. Allergies Allergen ID Allergen Name Allergen Category Reaction Reaction Severity Criticality Documentation Date Start Date Code Code System Note Provider Name and Address Organization Details Recorded Time 772113 Product containin g penicilli n (product) medicatio n Not available Not available Not available 03/08/2024 16801 [facility] Kassidy linder, PA - [facility] 4 [...] /min 26 /min 170.18 cm 26 kg/m2 55724.3 3 g 96.7 [degF] 136 mm[Hg] 82 mm[Hg] Kassidyramírez Camarenanahun PA - [facility] 4 16:03:49 Date Recorded Body height Body mass index (BMI) Body weight Oxygen saturation Oxygen saturation in Arterial blood by Pulse oximetry Heart rate Respiratory rate Body temperature Systolic blood pressure Diastolic blood pressure Provider Name and Address Organization Details Last Updated DateTime 4 170.18 cm 26 kg/m2 74390.3 3 g 97 % 97 % 94 [...] [facility] 03/08/2024 16:07:11 zoster recombinant 3 completed Kassdiy Marier null, PA - [facility] 03/08/2024 [...] SNOMED-CT Code Diagnosis ICD10 Code Diagnosis Note [id number] [facility] [facility] [address] [place] [address] 11/16/2016 11:48:19 11/16/2016 12:20:51 [id number] [address] [address] [address] 06/22/2017 16:07:16 06/22/2017 17:22:21 [id number] [address] [address] [address] 01/14/2018 09:52:41 01/14/2018 11:41:28 [id number] [address] [facility] [address] [address] 03/24/2016 15:44:49 03/24/2016 17:14:06 [id number] [address] [facility] [address] [place] [address] 04/07/2018 11:09:50 04/07/2018 11:49:23 [id number] [place] [address] [employer] [address] [address] 03/08/2024 15:58:48 03/08/2024 18:30:48 Acute exacerbation of chronic obstructive pulmonary disease 219063448 J44.1 Chronic obstructiv e pulmonary disease (COPD) [...] if not diagnosed and treated sania mcbride. [id number] [place] [address] [address] 04/02/2024 17:56:27 04/02/2024 19:48:45 Acute sinusitis 71638915 J01.90 Health Concerns Section Related Observation LastModified by Organization Detai ls LastModified Time None Recorded Concern Status LastModified by Organization Details LastModified Time None Recorded Advance Directives Directive None Recorded Payers Encounter Date Sequence Insurance Name Policy Number Policy Teresa Covered Member ID Teresa Member ID Guarantor Name 06/22/2017 1 [facility] [id number] Jameel Rakesh [id number] Jameel Rakesh 01/14/2018 1 [facility] [id number] Jameel Rakesh [id number] Jameel Rakesh 04/07/2018 1 [facility] [id number] Jameel Rakesh [id number] Jameel Rakesh 03/08/2024 1 [employer] [id number] [id number] Jameel Rakesh 03/08/2024 2 [place]ICARE [place] Jameel Rakesh [id number] Jameel Rakesh 04/02/2024 1 [employer] [id number] [id number] Jameel Rakesh Notes Date Note Type Note [...] Carroll NP [address] [place], [address], [employer] 03/08/2024 18:12:46 4 text/html Sinus Complaints UCReported [...] Carroll NP [address] [place], [address], [facility] 04/03/2024 16:53:33
--- OUTSIDE RECORDS SUMMARY | 2024-12-23 15:38 | XMS_ITS ---
Author Organization [facility] Address [address] [facility] [address] [place] [address] Care Team Providers Care Underwriting Assistant Name Role Phone SUNDAY PATIÑO Primary Care Provider Aime Munoz Jr [phone] Casey GIL, Nacho Unavailable Unavailable REASON FOR VISIT abd pain Encounters Encounter Location Date Provider Diagnosis [facility] [address] [facility] [address] [place] [address] 06/29/2024 Aime May Jr Plan Of Treatment No Information Progress Notes * CHANTELL HUDSONOREDOB:[birth year] (74 yo M)Acc No.[id number]:06/29/2024 Progress Notes Patient:?DALILA HUDSON Provider:?Aime May MD :1950???Age:74 Y???Sex:Male Manny e:06/29/2024 Address:[address] [place], [place] [id number] Pcp:SUNDAY PATIÑO Subjective: * Chief Complaints: * [...] May MD Date:?1 Generated for Juanita eden/Jesús/eTransmitting on:?12/23/2024 03:38 PM EDT
--- OUTSIDE RECORDS SUMMARY | 2024-12-23 15:39 | XMS_ITS ---
Author Organization [facility] Address [address] [place] [address] Care Team Providers Care Train Driver Name Role Phone SUNDAY PATIÑO Primary Care Provider Aime Munoz Jr [phone] Casey GIL, Nacho Unavailable Unavailable REASON FOR VISIT cancel appt Encounters Encounter Location Date Provider Diagnosis [facility] [address] [facility] [address] [place] [address] 12/01/2024 Aime May Jr Plan Of Treatment No Information Progress Notes * ZEN HUDSONOB:[birth year] (74 yo M)Acc No.[id number]:12/01/2024 Patient:?DALILA HUDSON :1950???Age:74 Y???Sex:Male Address:[address] [place] [address], [address] * true * Date:? Generated for Jitendrai meek/Jesús/eTransmitting on:?12/23/2024 03:38 PM EDT
--- OUTSIDE RECORDS SUMMARY | 2024-12-23 15:39 | XMS_ITS ---
Author Organization [facility] Address [address] [facility] [address] [place] [address] Care Team Providers Care Acquisition Marketing Coordinator Name Role Phone SUNDAY PATIÑO Primary Care Provider Aime Munoz Jr Unavailable [phone] Casey GIL, Nacho Unavailable Unavailable REASON FOR VISIT Patient presents today for abdominal pain Encounters Encounter Location Date Provider Diagnosis [facility] [address] [facility] [address] [place] [address] 12/03/2024 Aime May Jr Plan Of Treatment No Information Progress Notes * CHANTELL HUDSONOREDOB:[birth year] (74 yo M)Acc No.[id number]:12/03/2024 Progress Notes Patient:?DALILA HUDSON Provider:?Aime May MD :1950???Age:74 Y???Sex:Male Manny e:12/03/2024 Address:[address] [place], [place] [phone] Pcp:SUNDAY PATIÑO Subjective: * Chief Complaints: * [...] MD Date:?0 12/03/2024 Generated for Printi ng/Faxing/eTransmitting on:?12/23/2024 03:38 PM EDT
--- OUTSIDE RECORDS SUMMARY | 2024-12-23 15:39 | XMS_ITS | Patient Health Record ---
Author Organization [facility] Address [address] [place] [address] Care Team Providers Care Air Brake Rigger Name Role Phone SUNDAY PATIÑO Primary Care Provider Unavailnava e Aime May Jr Unavailable [phone] Casey GIL, Nacho Unavailable Unavailable Allergies Allergen (clinical drug ingredient) Drug/Non Drug Allergy documented on EMR Reaction Allergy Type Onset Date Status codeine Codeine Unknown Drug Allergy Active azithromycin Azithromycin Unknown Drug Allergy A ctive penicillin G Penicillin G Sodium Unknown Drug Allergy Active EPINEPHrine Unknown Drug Allergy Activ e sulfamethoxazole / trimethoprim Bactrim Unknown Drug Allergy Active Reason For Referral No Information Medications Medication SIG (Take, Route, Frequency, Duration) Notes Start Date End Date Status Albuterol Sulfate 108 (90 Base) MCG/ACT 1 [...] 1 MG Oral for 30 Act shobha Dicyclomine HCl 10 MG TAKE 3 CAPSULES BY MOUTH 3 TIMES A DAY for 90 Active Hyoscyamine Sulfate 0.125 MG Use 1 or [...] Problem Status W/U Status Risk Notes Problem 528117291 Irritable bowel syndrome with diarrhea (K58.0) Active confirmed Problem 071522756 Elevated LFTs (R79.89) Active confirmed Problem 256321421 Gastroesophageal reflux disease without esophagitis (K21.9) Active confirmed Problem Irritable bowel syndrome (51309485) Irritable bowel syndrome with both constipation and diarrhea (K58.0) Active confirmed Vital Signs Temperature 97.5 degrees Fahrenheit 06/04/2024 Blood pressure diastolic 00 mm Hg 06/04/2024 Height 67 in 06/04/2024 Blood pressure systolic 000 mm Hg 06/04/2024 Weight 149 lb 4 oz lbs 06/04/2024 BMI 23.37 kg/m2 06/04/2024 Encounters Encounter Location Date Provider Diagnosis [facility] [address] [place] [phone] 06/04/2024 Aime May Jr Irritable bowel syndrome with both constipation and diarrhea K58.0 [facility] [address] [place] [address] 05/04/2024 Aime May Jr [facility] [address] [place] [address] 05/20/2024 Aime May Jr [facility] [address] [place] [address] 06/05/2024 Aime May Jr [facility] [address] [place] [address] 12/01/2024 Aime May Jr Assessments Encounter Date [...] Insured Coverage Start Date Coverage End Date [employer] ([employer]) [address] [place] [address] [id number] DALILA HUDSON Self - patient is the insured MEDICARE OF [place] [address] [facility] [place] [address] [id number] DALILA HUDSON Self - patient is the insured Medical (General) History Medical History History ICD Code CAD, history of TN and stent placement Hypertension COPD Colonoscopy 08/09/21 2 adeno mas, no evidence of Crohn's disease, five-year followup Irritable bowel syndrome Gastroesophageal reflux dise ase, EGD 12/09, no H. pylori or Barton's esophagus Anxiety Surgical History Surgery Date(Month/Year) Inguinal herniorrhaphy 2019 Cholecystectomy 2006 Hospitalization History Reason Date(Month/Year) bowel blockage 2020
--- OUTSIDE RECORDS SUMMARY | 2024-12-23 15:39 | XMS_ITS | Clinical Summary ---
Author Organization [facility] it Address [address] [place] [address] Care Team Providers Care Board Member Name Role Phone Jacob Loza MD Primary Care Provider [phone] Medications amLODIPine (NORVASC) 5 mg tablet TAKE [...] (coronary artery disease); COMMENT: S/p stent circumflex 1999-[facility] COPD (chronic obstructive pu lmonary disease) ([facility]) DX:COPD (chronic obstructive pulmonary disease) ([facility]); COMMENT: Sees [facility] through [facility] Dr. Baum Severe emphysema per PFTs 04/13/19 with FEV1 26% of predicte dvalue, FVC 47%, ratio 55%. Essential hypertension 03/09/2019 DX:Essent ial hypertension GERD (gastroesophageal reflu x disease) 01/27/2019 DX:GERD (gastroesophageal re flux disease); COMMENT: With duodenitis Hiatal hernia 01/27/2019 DX:Hiatal hernia ; COMMENT: Referred to surg by GI IBS (irritable bowel syndrome) D X:IBS (irritable bowel syndrome) Recurrent major depression-s evere ([facility]) 05/06/2019 DX:Recurrent major depressio n-severe ([facility]); COMMENT: Inpatient 2018, 2019 course of ECT, [...] Vaccines (1 of 2) 02/02/2002 RSV Immunization Adult Patients (1 - Risk 60-74 years 1-dose series) [...] Result from Last 3 Months Care Teams Board Member Relationship Specialty Start Date End Date Jacob Loza MD PCP - General Internal Medicine 04/27/21
== END 2024-12-23 13:51 | disposition home or self-care (01) ==
LOC: HO.HPSW 13:01
PROVIDERS: PCP Internal Medicine; Visit Provider Nurse Practitioner Family
DX: J43.2 Centrilobular emphysema (principal); G47.33 Obstructive sleep apnea (adult) (pediatric); J96.11 Chronic respiratory failure with hypoxia; R91.1 Solitary pulmonary nodule
CPT/HCPCS: 99214

== ENCOUNTER 2025-02-05 12:54 | Outpatient (AMB) | payer OTHER, MEDICARE, SELFPAY ==
--- OUTSIDE RECORDS SUMMARY | 2025-02-05 12:57 | XMS_ITS ---
Author Organization [facility] Address [address] [place] [address] Care Team Providers Care Washing Machine Assembler Name Role Phone SUNDAY PATIÑO Primary Care Provider Aime Munoz Jr Casey GIL, Nacho Unavailable Unavailable REASON FOR VISIT cancel appt Encounters Encounter Location Date Provider Diagnosis [facility] [address] [facility] [address] [place] [phone] 12/01/2024 Aime May Jr Plan Of Treatment No Information Progress Notes * ZEN HUDSONOB:[birth year] (74 yo M)Acc No.[id number]:12/01/2024 Patient:?DALILA HUDSON :1950???Age:74 Y???Sex:Male Address:[address] [place] [address], [address] * true * Date:? Generated for Jitendrai meek/Jesús/eTransmitting on:?02/05/2025 12:57 PM EDT
--- OUTSIDE RECORDS SUMMARY | 2025-02-05 12:57 | XMS_ITS | Data Portability ---
Author Organization [facility], [address] Address [address] [place] [address] Care Team Providers Care Strap Cutter Name Role Phone [facility] Bulk Coolers Installer Assessment No assessment recorded. Plan of Treatment Reminders Order Date Submit Date Provider Last Modified By Organization Details Last Modified Time Details Appointments None recorded. Lab None recorded. Referral None recorded. Procedures None recorded. Surgeries None recorded. Imaging None recorded. Medication Orders Zithromax Z-Robinson 250 mg tablet 2023 024 SALOME [id number], [address] [place], [address], 19:36:28 dexamethaso ne sodium phosphate (PF) 10 mg/mL injection solution 2023 024 [email or web address] Not available 18:12:37 prednisone 20 mg tablet 2023 024 [email or web address] [id number], [address] [place], [address], 18:48:33 Patient TargetsNo targets recorded. Patient Instructions Encounter Date Encounter Id Patient Instructions Last Modified By Organization Details Last Modified Time 03/08/2024 [id number] chronic obstructive pulmonary disease (COPD) flare-ups: care instructions Not available 03/08/2024 18:12:37 peak flow* SALOME Not available 03/09 14:22:07 respiration improved post steroid injection. peak flow improved Not available 03/08/2024 18:12:14 04/02/2024 [id number] Acute Sinusitis: Care Instructions Not available 04/02/2024 19:36:26 Reason for Referral None Reported. Results Created Date Observation Date Name Description Value Unit Range Abnormal Flag Note LastModifiedBy Organization Detail LastModifiedTime 03/09/20 24 03/09/2024 peak flow* Pre (L/min) 50 Not Available [address] [place] [address] [address] [place], [address], 03/08/2024 18:12:21 03/09/20 24 03/09/2024 peak flow* Post (L/min) 120 Not Available [address] [facility] [address] [place], [address], 03/08/2024 18:12:21 03/09/20 24 03/09/2024 peak flow* Oxygen Saturation 98 Not Available [address] [place] [address] [place] [address], [address], 03/08/2024 18:12:21 Result Notes None recorded. Problems Name Problem SNOMED Code Status Onset Date Resolution Date Notes Provider Name and Address Organization Details Recorded Time Chronic obstructive pulmonary disease 84710415 Active 2023 Kassidy linder PA - [facility] 4 16:01:39 Hypertensive disorder 47192186 Active 2023 Kassidy linder PA - [facility] 4 16:01:44 Acute exacerbation of chronic obstructive pulmonary disease 869502265 Active 2023 Letitia Carroll NP [address] [facility] [place], [address] , [place] - [facility] 4 16:10:22 Anxiety 44966094 Active LUCILA linder, PA - [facility] 4 18:49:23 Irritable bowel syndrome 08532658 Active LUCILA linder, PA - [facility] 4 18:49:29 Acute sinusitis 33387850 Active 2023 Letitia Carroll NP [address] [place], [address] , [place] - [facility] 4 19:36:12 Notes:stomach spasms Problem Notes None recorded. Medical Equipment None Reported. Allergies Allergen ID Allergen Name Allergen Category Reaction Reaction Severity Criticality Documentation Date Start Date Code Code System Note Provider Name and Address Organization Details Recorded Time 883592 Product containin g penicilli n (product) medicatio n Not available Not available Not available 03/08/[address] [place] Ksasidy linder, PA - [facility] 4 16:00:55 [...] /min 26 /min 170.18 cm 26 kg/m2 67587.3 3 g 96.7 [degF] 136 mm[Hg] 82 mm[Hg] Kassidy Genie PA - [facility] 4 16:03:49 Date Recorded Body height Body mass index (BMI) Body weight Oxygen saturation Oxygen saturation in Arterial blood by Pulse oximetry Heart rate Respiratory rate Body temperature Systolic blood pressure Diastolic blood pressure Provider Name and Address Organization Details Last Updated DateTime 4 170.18 cm 26 kg/m2 76461.3 3 g 97 % 97 % 94 /min 18 /min 98.2 [degF] 116 mm[Hg] 75 mm[Hg] LUCILA BRANDT PA - [facility] 4 18:50:29 Social History Question Answer Notes LastModified by [employer] Details LastModified Time Tobacco Smoking Status Former Smoker Kassidy linder PA - [facility] 03/08/2024 16:02:45 When Did You Quit Smoking? 6-10yearssin celastcigare tte Information not available 03/08/2024 Have You Had A Flu Shot This Season? N/A Information not available 03/08/2024 Have You Had Direct Contact, Or Contact During Intimacy, With Monkeypox Rash, Scabs, Or Body Fluids From A Person With Monkeypox? No Information not available 03/08/2024 What Was The Date Of Your Most Recent Tobacco Screening? 03/01/2024 Information not available 03/08/2024 Have You Recently Traveled Abroad? No Information not available 03/08/2024 Sex: Unknown Functional Status Question Answer Note LastModified by [employer] Details LastModified Time Do you use any illicit or recreational drugs? No Information not available 03/08/2024 Do you or have you ever used any other forms of tobacco or nicotine? No Information not available 03/08/2024 What is your level of alcohol consumption? None Information not available 03/08/2024 Mental Status None recorded. Family History Relationship [...] PF, 30 mcg/0.3 mL dose 1 completed Kassidyrmaírez Camarenaer null, PA - [facility] 03/08/2024 [...] SNOMED-CT Code Diagnosis ICD10 Code Diagnosis Note [id number] [facility] [address] [place] [address] 11/16/2016 11:48:19 11/16/2016 12:20:[id number] [place] [address] [address] [place] [address] 06/22/2017 16:07:16 06/22/2017 17:22:[id number] [place] [address] [address] [place] [address] 01/14/2018 09:52:41 01/14/2018 11:41:[id number] [place] [address] [address] [place] [address] 03/24/2016 15:44:49 03/24/2016 17:14:06 [id number] [facility] [address] [place] [address] 04/07/2018 11:09:50 04/07/2018 11:49:23 [id number] [place] [address] [facility] [address] [place] [address] 03/08/2024 15:58:48 03/08/2024 18:30:48 Acute exacerbation of chronic obstructive pulmonary disease 064797669 J44.1 Chronic obstructiv e pulmonary disease (COPD) [...] if not diagnosed and treated sania mcbride. [id number] [place] [address] [address] 04/02/2024 17:56:27 04/02/2024 19:48:45 Acute sinusitis 06610563 J01.90 Health Concerns Section Related Observation LastModified by Organization Detai ls LastModified Time None Recorded Concern Status LastModified by Organization Details LastModified Time None Recorded Advance Directives Directive None Recorded Payers Insurance Date Sequence Insurance Name Policy Number Policy Teresa Covered Member ID Teresa Member ID Guarantor Name 03/08/2024 1 [place]: [facility] Jameel Cameron [id number] Jameel Rakesh 03/08/2024 1 [facility] Jameeljane Cameron [id number] Jameel Rakesh 04/02/2024 1 [facility] [id number] Emeka Ahmadi Carley [id number] Jameel Rakesh 03/12/2024 2 [place] [facility] Jameel Rakesh [id number] Jameel Rakesh 03/08/2024 1 [facility] [id number] Jameel Rakesh [id number] Jameeljane Cameron Notes Date Note Type Note Provider Name [...] Carroll NP [address] [place], [address], [employer] 03/08/2024 18:12:46 4 text/html Sinus Complaints UCReported [...] Carroll NP [address] [place], [address], [facility] 04/03/2024 16:53:33
--- OUTSIDE RECORDS SUMMARY | 2025-02-05 12:57 | XMS_ITS ---
Author Organization [facility] Address [address] [facility] [address] [place] [address] Care Team Providers Care Puppet Developer Name Role Phone SUNDAY PATIÑO Primary Care Provider Aime Munoz Jr Unavailable [phone] Casey GIL, Nacho Unavailable Unavailable REASON FOR VISIT Patient presents today for abdominal pain Encounters Encounter Location Date Provider Diagnosis [facility] [address] [facility] [address] [place] [address] 12/03/2024 Aime May Jr Plan Of Treatment No Information Progress Notes * CHANTELL HUDSONOREDOB:[birth year] (75 yo M)Acc No.[id number]:12/03/2024 Progress Notes Patient:?DALILA HUSDON Provider:?Aime May MD :1950???Age:74 Y???Sex:Male Manny e:12/03/2024 Address:[address] [place], [place] [phone] Pcp:SUNDAY PATIÑO Subjective: * Chief Complaints: * [...] MD Date:?0 12/03/2024 Generated for Printi ng/Faxing/eTransmitting on:?02/05/2025 12:57 PM EDT
--- OUTSIDE RECORDS SUMMARY | 2025-02-05 12:57 | XMS_ITS ---
Author Organization [facility] Address [address] [place] [address] Care Team Providers Care Manager Developmental Name Role Phone SUNDAY PATIÑO Primary Care Provider Aime Munoz Jr Casey GIL, Nacho Unavailable Unavailable REASON FOR VISIT abd pain Encounters Encounter Location Date Provider Diagnosis [facility] [address] [facility] [address] [place] [phone] 06/29/2024 Aime May Jr Plan Of Treatment No Information Progress Notes * CHANTELL HUDSONOREDOB:[birth year] (75 yo M)Acc No.[id number]:06/29/2024 Progress Notes Patient:?DALILA HUDSON Provider:?Aime May MD :1950???Age:74 Y???Sex:Male Manny e:06/29/2024 Address:[address] [place], [place] [phone] Pcp:SUNDAY PATIÑO Subjective: * Chief Complaints: * [...] May MD Date:?1 Generated for Juanita eden/Jesús/eTransmitting on:?02/05/2025 12:57 PM EDT
--- OUTSIDE RECORDS SUMMARY | 2025-02-05 12:58 | XMS_ITS | Clinical Summary ---
[facility] Organization [facility] Address [address] [place] [address] Care Team Providers Care Sales Floor Team Leader Name Role Phone Jacob Loza MD Primary Care Provider [phone] Medications amLODIPine (NORVASC) 5 mg tablet TAKE [...] (coronary artery disease); COMMENT: S/p stent circumflex 1999-[facility] COPD (chronic obstructive pu lmonary disease) ([facility] V24, [facility] V28) DX:COPD (chronic o bstructive pulmonary disease) ([facility]); COMMENT: Sees [facility] Baum Severe emphysema per PFTs 04/13/19 with FEV1 26% of predicte dvalue, FVC 47%, ratio 55%. Essential hypertension 03/09/2019 DX:Essent ial hypertension GERD (gastroesophageal reflu x disease) 01/27/2019 DX:GERD (gastroesophageal re flux disease); COMMENT: With duodenitis Hiatal hernia 01/27/2019 DX:Hiatal hernia ; COMMENT: Referred to surg by GI IBS (irritable bowel syndrome) D X:IBS (irritable bowel syndrome) Recurrent major depression-s evere ([facility] V24, [facility]/HCC V28) 05/06/2019 DX:Recurrent major depressi on-severe (HCC); COMMENT: Inpatient 2017, 2018 course of ECT, OP [facility] team, SSRI intolerances Severe anxiety with [...] Annual BMP Blood Test 08/30/2022 COVID-19 Vaccine (2023-2 5 season) 2024 11/23/2020, 10/26/2020 Influenza Vaccine (Season Ended) 2025 07/06/2020 HIB Vaccines Aged Out No longer [...] age to complete this topic Meningococcal B Vaccine Aged Out No l onger eligible based on patient's age to complete this topic RSV Immunization Patients Under 20 months Aged Out No longer eligible b ased on patient's age to complete this topic Varicella Vaccines Aged Out No longer eligible based on patient's age to complete this topic Care Teams Sales Floor Team Leader Relationship Specialty Start Date End Date Jacob Loza MD PCP - General Internal Medicine 04/27/21
--- OUTSIDE RECORDS SUMMARY | 2025-02-05 12:58 | XMS_ITS | Patient Health Record ---
Author Organization [facility] Address [address] [place] [address] Care Team Providers Care Outside Sales Account Manager Name Role Phone SUNDAY PATIÑO Primary Care Provider Unavailnava e Aime May Jr Unavailable Casey GIL, Nacho Unavailable Unavailable Allergies Allergen [...] Problem Status W/U Status Risk Notes Problem 560677536 Irritable bowel syndrome with diarrhea (K58.0) Active confirmed Problem 425687606 Elevated LFTs (R79.89) Active confirmed Problem 131850816 Gastroesophageal reflux disease without esophagitis (K21.9) Active confirmed Problem Irritable bowel syndrome (28198881) Irritable bowel syndrome with both constipation and diarrhea (K58.0) Active confirmed Vital Signs Temperature 97.5 degrees Fahrenheit 06/04/2024 Blood pressure diastolic 00 mm Hg 06/04/2024 Height 67 in 06/04/2024 Blood pressure systolic 000 mm Hg 06/04/2024 Weight 149 lb 4 oz lbs 06/04/2024 BMI 23.37 kg/m2 06/04/2024 Encounters Encounter Location Date Provider Diagnosis [facility] [address] [place] [phone] 06/04/2024 Aime May Jr Irritable bowel syndrome with both constipation and diarrhea K58.0 [facility] [address] [place] [phone] 05/04/2024 Aime May Jr [facility] [address] [place] [address] 05/20/2024 Aime May Jr [facility] [address] [place] [phone] 06/05/2024 Aime May Jr [facility] [address] [place] [phone] 12/01/2024 Aime May Jr Assessments Encounter Date [...] Insured Coverage Start Date Coverage End Date [employer] ([employer]) [address] [place] [address] [id number] DALILA HUDSON Self - patient is the insured MEDICARE OF [place] [address] [facility] [place] [address] [phone] [id number] DALILA HUDSON Self - patient is the insured Medical (General) History Medical History History ICD Code CAD, history of HI and stent placement Hypertension COPD Colonoscopy 08/09/21 2 adeno mas, no evidence of Crohn's disease, five-year followup Irritable bowel syndrome Gastroesophageal reflux dise ase, EGD 12/09, no H. pylori or Barton's esophagus Anxiety Surgical History Surgery Date(Month/Year) Inguinal herniorrhaphy 2019 Cholecystectomy 2006 Hospitalization History Reason Date(Month/Year) bowel blockage 2020
[2025-02-05 13:02] VITALS: BP 110/68; PULSE 109; O2SAT 98; BMI 26.4
--- NOTE | 2025-02-05 13:02 | MHC.OFFVIS ---
Vital Signs 02/05/25 13:02 Height 5 ft 6 in Weight 163 lb 8 oz BMI 26.4 BP 110/68 Blood Pressure Location Rt brachial Position Sitting Pulse 109 H Pulse Source Pulse Oximeter Pulse Oximetry (%) 98 Oxygen Delivery Method Room Air Intake Visit Reasons: Hospital f/u COPD Allergies lamotrigine [From LAMICTAL] Allergy (Severe, Verified 02/05/25 13:06) agitation and anxiety with titration codeine [CODEINE] Allergy (Intermediate, Verified 02/05/25 13:06) INSOMNIA Penicillins [PENICILLINS] Allergy (Intermediate, Verified 02/05/25 13:06) RASH epinephrine [EPINEPHRINE] Adverse Reaction (Intermediate, Verified 02/05/25 13:06) Hypertension escitalopram [From LEXAPRO] Adverse Reaction (Intermediate, Verified 02/05/25 13:06) NIGHTMARES sertraline [From ZOLOFT] Adverse Reaction (Intermediate, Verified 02/05/25 13:06) NIGHTMARES sulfamethoxazole [From BACTRIM] Adverse Reaction (Intermediate, Verified 02/05/25 13:06) STOMACH UPSET HPI HPI Hospital f/u COPD: Details: Jameel is a pleasant 75 year old male, former 30 pack year smoker, quit 5 years ago with underlying very severe COPD, CAD , HTN, HLD, PREMA on NIV, depression and anxiety. He was suboptimally controlled on Pulmicort, Spiriva, Levalbuterol neb. and previously trialed multiple combination inhalers including Symbicort, Breo, Trelegy and Breztri however could not tolerate LABA component. A prescription for Ohtuvayre was also trialed as well as Theophylline however patient could not tolerate. At the last visit, Pulmicort was increased to 180 mcg 2 inhalations BID in addition to a flutter valve. He reports he had notable improvements since increasing ICS component but continues to use levalbuterol 2 inhalations q4-6 hours, only feeling effects for 3 hours. He denies any tachycardia and tremors with use of levalbuterol MDI however does have side effects with nebulized form. He has been monitoring oxygen saturation <92% on room air, but has supplemental oxygen PRN. He had been attending pulmonary rehab and has significantly benefitted from this however was placed on hold after ED admission in November. [facility] Medical History (Updated 12/23/24 @ 16:04 by Re Gordillo NP) CAD (coronary artery disease) Abnormal nuclear stress test Hypertension HLD (hyperlipidemia) Pneumonitis Chronic respiratory failure COPD (chronic obstructive pulmonary disease) Asthma Pulmonary nodule COVID-19 vaccine series completed Personal history of nicotine dependence Hx of small bowel obstruction Tardive dyskinesia Panic disorder History of major depression Generalized anxiety disorder IBS (irritable bowel syndrome) GERD (gastroesophageal reflux disease) Surgical History Stented coronary artery Hx of colonoscopy H/O bilateral inguinal hernia repair Hx of cholecystectomy Family History Father No problems noted. Mother No problems noted. Social History Household Members: Spouse and Children Household Members Other:: Emeka Housing: House Are you a primary patient care manager to a significant other at home: No Do you presently have visiting nurse or other home services: No Unable to assess alcohol history related to: Unknown Alcohol intake: never Comment: patient stable on ambulation Patient Tobacco Use Status: Former Tobacco user Tobacco use type: Cigarette Years Smoked: 35 e-Cigarette/Vaping Use: Never Used Second Hand Smoke Exposure: No service: No Sexual orientation: Lesbian/Triana/Homosexual Review of Systems Const Denies chills, Denies excessive sweating, Denies fever(s), Denies headache(s) and Denies night sweats Eyes Denies dry eyes, Denies irritation and Denies itchy eyes ENT Reports Normal hearing present, Denies headache(s), Denies nasal congestion, Denies nasal discharge, Denies post nasal drip and Denies sore throat Card Denies chest pain, Denies chest pain at rest, Denies chest pain with activity, Denies claudication, Denies leg edema, Reports dyspnea on exertion, Denies orthopnea and Denies paroxysmal nocturnal dyspnea Resp Denies chest congestion, Denies cough, Denies hemoptysis, Denies excessive phlegm production, Denies pain on inspiration, Denies pain with cough, Reports dyspnea on exertion, Denies stridor and Reports wheezing Musc Denies myalgias Neuro Reports Normal hearing present and Denies headache(s) Endo Denies excessive sweating Ross/Lymph Denies lymphadenopathy Aller/Immun Denies itchy eyes, Denies seasonal rhinorrhea and Reports wheezing Physical Exam Vital Signs: Last Vital Signs Pulse 109 H 02/05/25 13:02 BP 110/68 02/05/25 13:02 Pulse Ox 98 02/05/25 13:02 Oxygen Delivery Method Room Air 02/05/25 13:02 BMI result Body Mass Index 26.4 Const General: cooperative, healthy appearing, comfortable, no acute distress and alert Orientation/consciousness: patient oriented x3 Limitations: no limitations HEENT Head: Yes normal to inspection, Yes normocephalic and Yes atraumatic Ears: hearing grossly normal bilaterally and external ears normal Eyes General: appearance normal, both eyes and all related structures Eyelids: Yes eyelids normal Sclerae: sclerae normal EOM: EOMs intact bilaterally Neck Neck: Yes normal visual inspection and Yes no lymphadenopathy Lymphatic: no lymphadenopathy noted Chest Chest palpation & inspection: normal inspection of the chest Resp Effort & Inspection: normal respiratory effort, able to speak in complete sentences, no audible wheezes, no cough, no stridor, not tachypneic, no tripod positioning, no use of accessory muscles and prolonged expiratory phase Auscultation: diminished lung sounds Cardio Jugular venous distension: no JVD Rate: regular rate Rhythm: regular rhythm Skin Other: warm, dry General skin exam: no rashes or lesions noted Neuro General: patient oriented x3 Cranial nerves: Yes Normal hearing present Cognition (Neuro): normal cognition Gait exam (Neuro): Normal gait present Extrem General: Yes normal to inspection, Yes capillary refill normal, Yes no clubbing, cyanosis or edema and Yes no pedal edema Psych Appearance: grossly normal and well kempt Speech and movement: Normal speech and movement present and Clear speech present Affect: normal affect Attitude: cooperative Thought process: Normal thought process present Thought content: Normal thought content present Insight: Good insight present (Psych) Judgement: Good judgement present (Psych) Assessment & Plan Assessment & Plan (1) COPD (chronic obstructive pulmonary disease): Code(s): J44.9 - Chronic obstructive pulmonary disease, unspecified Category: Medical Qualifiers: COPD type: emphysema Emphysema type: centrilobular Qualified Code(s): J43.2 - Centrilobular emphysema (2) PREMA (obstructive sleep apnea): Code(s): G47.33 - Obstructive sleep apnea (adult) (pediatric) Category: Medical (3) Chronic respiratory failure: Code(s): J96.10 - Chronic respiratory failure, unspecified whether with hypoxia or hypercapnia Category: Medical Qualifiers: Respiratory failure complication: hypoxia Qualified Code(s): J96.11 - Chronic respiratory failure with hypoxia (4) Pulmonary nodule: Code(s): R91.1 - Solitary pulmonary nodule Category: Medical Plan Patient has tried and failed multiple ICS/LABA combinations as well as Breztri/Trelegy for likely LABA component as he would develop significant tremors, palpitations and tachycardia. He feels improvements in dyspnea with use of Pulmicort 180 mcg but continues to use levalbuterol MDI frequently. Will attempt to switch to albuterol MDI and patient to d/c if develops tachycardia/tremors. Discussed trialing Brovana to see if he could tolerate however he would like to hold off at this time. Patient aware to call if symptoms do not improve. Encouraged use of flutter valve with nebulized therapy when chest congestion occurs. He is interested in returning to pulmonary rehab, will reach out to see if he needs a repeat PFT since his last was from 2022. He is enrolled in the lung screening program, prior LDCT 04/15 revealed stable scattered pulmonary nodules <2mm. He has upcoming LDCT scheduled for 03/2025. All questions were answered and patient is in agreement of plan. Will follow up in 8-10 weeks or sooner if needed. Medications: New albuterol sulfate 90 mcg/actuation 2 puffs inhalation Q4-6H PRN 1 ea 3RF shortness of breath or wheezing Refilled levalbuterol HCl 1.25 mg (3 mL) inhalation BID 30 days 180 mL 11RF J44.9 - Chronic obstructive pulmonary disease, unspecified Discontinued theophylline ER Discontinued Reason: Patient Completed Course 200 mg (2 x 100 mg) PO Q12H 30 days 120 tabs 3RF Coding Level of Care Code Est Pt Level 4 (91227) Diagnoses Centrilobular emphysema J43.2 COPD type: emphysema Emphysema type: centrilobular PREMA (obstructive sleep apnea) G47.33 Chronic respiratory failure with hypoxia J96.11 Respiratory failure complication: hypoxia Pulmonary nodule R91.1
== END 2025-02-05 13:59 | disposition home or self-care (01) ==
LOC: HO.HPSW 12:55
PROVIDERS: PCP Internal Medicine; Visit Provider Nurse Practitioner Family
DX: J43.2 Centrilobular emphysema (principal); G47.33 Obstructive sleep apnea (adult) (pediatric); J96.11 Chronic respiratory failure with hypoxia; R91.1 Solitary pulmonary nodule
CPT/HCPCS: 99214

== ENCOUNTER 2025-04-02 15:33 | Outpatient (REF) | payer OTHER, MEDICARE, SELFPAY ==
--- OUTSIDE RECORDS SUMMARY | 2024-06-29 05:20 | XMS_ITS ---
Author Organization [facility] Address [address] [place] [phone] Care Team Providers Care Book Jogger Name Role Phone SUNDAY PATIÑO Primary Care Provider Aime Munoz Jr [phone] Casey GIL, Nacho Unavailable Unavailable REASON FOR VISIT abd pain Encounters Encounter Location Date Provider Diagnosis [facility] 10 [facility] [address] [place] [phone] 06/29/2024 Aime May Jr Plan Of Treatment No Information Progress Notes * CHANTELL HUDSONOREDOB:[birth year] (75 yo M)Acc No.[id number]:06/29/2024 Progress Notes Patient: DALILA CHAMPAGNE Provider: Yaima May MD :1950 A ge:74 Y S ex:Male Date:06/29/2024 Address:[address] [place], [place] [phone] Pcp:SUNDAY PATIÑO Subjective: * Chief Complaints: * [...] 1 Generated for Printi ng/Faxing/eTransmitting on: 0 04/02/2025 03:34 PM EDT
--- NOTE | ~2025-04-02 | CT_ITS ---
CLINICAL HISTORY: Z87.891 - Personal history of nicotine dependence CT lung cancer screening (LDCT) Comparison: CT/REG/SD/SR - CT LUNG SCREENING - 03/31/24 16:38 EDT Technique: Axial CT images of the chest using low-dose technique. Referring provider counseled the patient on shared decision-making for LDCT screening. Additional counseling was provided on smoking cessation. Effective radiation dose total: DLP 39.3 mGycm, CTDIvol 1.1 mGy. Findings: Lung:Severe emphysema redemonstrated. Mild irregular subpleural right upper lobe opacity present with minimal reticulonodular densities at the right upper lobe. There are minimal opacities at the inferior aspect of the right lower lobe. No focal consolidation identified within the left lung. No pneumothorax or pleural effusion. No suspicious pulmonary nodules are identified. Coronary artery calcifications: [id number] Limited upper abdomen: The gallbladder is surgically absent. The remainder of the included portion of the upper abdomen is otherwise unremarkable. Other: None. Impression: 1. Interval development of mild irregular consolidation of the right upper lobe with minimal reticulonodular densities at the right upper lobe and minimal right lower lobe opacities, suggesting infectious/inflammatory infiltrates/pneumonia in the appropriate clinical setting. These findings may limit evaluation for underlying pulmonary nodules in these regions. Lung rads category 3: Probably benign, six-month CT recommended. 2. Severe emphysema redemonstrated. This document has been electronically signed by: Terence Mobley MD on 04/05/2025 21:19:17
--- OUTSIDE RECORDS SUMMARY | 2025-04-02 15:35 | XMS_ITS | Clinical Summary ---
Author Organization [facility] it Address [address] [place] [address] Care Team Providers Care Ultrasonographer Name Role Phone Jacob Loza MD Primary Care Provider [phone] Medications amLODIPine (NORVASC) 5 mg tablet TAKE [...] (coronary artery disease); COMMENT: S/p stent circumflex 1999[facility] COPD (chronic obstructive pu lmonary disease) ([facility] V24, [facility] V28) DX:COPD (chronic o bstructive pulmonary disease) ([facility]); COMMENT: Sees [facility] Dr. Baum Severe emphysema per PFTs 04/13/19 with FEV1 26% of predicte dvalue, FVC 47%, ratio 55%. Essential hypertension 03/09/2019 DX:Essent ial hypertension GERD (gastroesophageal reflu x disease) 01/27/2019 DX:GERD (gastroesophageal re flux disease); COMMENT: With duodenitis Hiatal hernia 01/27/2019 DX:Hiatal hernia ; COMMENT: Referred to surg by GI IBS (irritable bowel syndrome) D X:IBS (irritable bowel syndrome) Recurrent major depression-s evere ([facility] V24, [facility]/HCC V28) 05/06/2019 DX:Recurrent major depressi on-severe (HCC); COMMENT: Inpatient 2017, 2018 course of ECT, [place] [facility] [place], SSRI intolerances Severe anxiety with [...] season) 2024 11/23/2020, 10/26/2020 Influenza Vaccine (#1) 2025 07/06/2020 HIB Vaccines Aged Out No [...] age to complete this topic Care Teams Ultrasonographer Relationship Specialty Start Date End Date Jacob Loza MD PCP - General Internal Medicine 04/27/21
--- OUTSIDE RECORDS SUMMARY | 2025-04-02 15:35 | XMS_ITS | Data Portability ---
Author Organization [facility], [address] Address [address] [place] [address] Care Team Providers Care Binding End Stitcher Name Role Phone [facility] Erosion Control Specialist Assessment No assessment recorded. Plan of Treatment Reminders Order Date Submit Date Provider Last Modified By Organization Details Last Modified Time Details Appointments None recorded. Lab None recorded. Referral None recorded. Procedures None recorded. Surgeries None recorded. Imaging None recorded. Medication Orders Zithromax Z-Robinson 250 mg tablet 2023 024 [id number], [address] [place], [address], 19:36:28 dexamethaso ne sodium phosphate (PF) 10 mg/mL injection solution 2023 024 Not available 18:12:37 prednisone 20 mg tablet 2023 024 [email or web address] [id number], [address] [place], [address], 18:48:33 Patient TargetsNo targets recorded. Patient Instructions Encounter Date Encounter Id Patient Instructions Last Modified By Organization Details Last Modified Time 03/08/2024 [id number] chronic obstructive pulmonary disease (COPD) flare-ups: care instructions Not available 03/08/2024 18:12:37 peak flow* [facility] Not available 03/09 14:22:07 respiration improved post steroid injection. peak flow improved Not available 03/08/2024 18:12:14 04/02/2024 [id number] Acute Sinusitis: Care Instructions Not available 04/02/2024 19:36:26 Reason for Referral None Reported. Results Created Date Observation Date Name Description Value Unit Range Abnormal Flag Note LastModifiedBy Organization Detail LastModifiedTime 03/09/20 24 03/09/2024 peak flow* Pre (L/min) 50 Not Available [address] [place] [address] [address] [place], [address], 03/08/2024 18:12:21 03/09/2003/09/2024 peak flow* Post (L/min) 120 Not Available [address] [facility] [address] [place], [address], 03/08/2024 18:12:21 03/09/20 24 03/09/2024 peak flow* Oxygen Saturation 98 Not Available [id number] [place] [address], [address], 03/08/2024 18:12:21 Result Notes None recorded. Problems Name Problem SNOMED Code Status Onset Date Resolution Date Notes Provider Name and Address Organization Details Recorded Time Chronic obstructive pulmonary disease 82474711 Active 2023 Kassidy linder PA - [facility] 4 16:01:39 Hypertensive disorder 84875013 Active 2023 Kassidy linder PA - [facility] 4 16:01:44 Acute exacerbation of chronic obstructive pulmonary disease 679389807 Active 2023 Letitia Carroll NP [address], [place], [address] , [place] - [facility] 4 16:10:22 Anxiety 10532694 Active LUCILA linder PA - [facility] 4 18:49:23 Irritable bowel syndrome 25632540 Active LUCILA linder, PA - [facility] 4 18:49:29 Acute sinusitis 63802548 Active 2023 Letitia Carroll NP [address] [place], [address] , [place] - [facility] 4 19:36:12 Notes:stomach spasms Problem Notes None recorded. Medical Equipment None Reported. Allergies Allergen ID Allergen Name Allergen Category Reaction Reaction Severity Criticality Documentation Date Start Date Code Code System Note Provider Name and Address Organization Details Recorded Time 555175 Product containin g penicilli n (product) medicatio n Not available Not available Not available 03/08/2024 [address]89 [facility]assidy linder, [facility] - [facility] [...] completed Not Available Not Available Not Available Aleeztri Aerospher e 160 mcg-9mcg- 4.8mcg/ac tuation HFA [...] index (BMI) Body weight Body temperature Systolic And Diastolic Provider Name and Address Organization Details Last Updated DateTime 4 124 /min 98 % 98 % 2 L/min 116 /min 26 /min 170.18 cm 26 kg/m2 01006.3 3 g 96.7 [degF] 136/82 mm[Hg] Kassidyramírez Camarenanahun PA - [facility] 4 16:03:49 Date Recorded Body height Body mass index (BMI) Body weight Oxygen saturation Oxygen saturation in Arterial blood by Pulse oximetry Heart rate Respiratory rate Body temperature Systolic And Diastolic Provider Name and Address Organization Details Last Updated DateTime 4 170.18 cm 26 kg/m2 77305.3 3 g 97 % 97 % 94 /min 18 /min 98.2 [degF] 116/75 mm[Hg] LUCILA BRANDT PA - [facility] 4 18:50:29 Social History Question Answer Notes LastModified by [employer] Details LastModified Time Tobacco Smoking Status Former [...] Functional Status Question Answer Note LastModified by [employer] Details LastModified Time Do you use any [...] SNOMED-CT Code Diagnosis ICD10 Code Diagnosis Note [id number] [facility] [address] [place] [address] 11/16/2016 11:48:19 11/16/2016 12:20:51 [id number] [address] [address] [place] [address] 06/22/2017 16:07:16 06/22/2017 17:22:21 [id number] [facility] [address] [place] [address] 7 01/14/2018 09:52:41 01/14/2018 11:41:28 [id number] [facility] [address] [place] [phone] 7 03/24/2016 15:44:49 03/24/2016 17:14:06 [id number] [facility] [address] [place] [phone] 04/07/2018 11:09:50 04/07/2018 11:49:23 [id number] [place] Carroll [place] [address] [place] [phone] 03/08/2024 15:58:48 03/08/2024 18:30:48 Acute exacerbation of chronic obstructive pulmonary disease 224863202 J44.1 Chronic obstructiv e pulmonary disease (COPD) [...] if not diagnosed and treated sania mcbride. [id number] [place] [address] [address] 04/02/2024 17:56:27 04/02/2024 19:48:45 Acute sinusitis 95561650 J01.90 Health Concerns Section Related Observation LastModified by Organization Detai ls LastModified Time None Recorded Concern Status LastModified by Organization Details LastModified Time None Recorded Advance Directives Directive None Recorded Payers Insurance Date Sequence Insurance Name Policy Number Policy Teresa Covered Member ID Teresa Member ID Guarantor Name 03/08/2024 1 MEDICARE B-[employer]: [employer] Jameel Cameron [id number] Jameel Rakesh 03/08/2024 1 [facility] Jameeljane Cameron [id number] Jameelantonieta Cameron 04/02/2024 1 [facility] [id number] Emeka Ahmadi Carley [id number] Jameel Rakesh 03/12/2024 2 MEDICARE B-SC: [employer]ATIONAL [employer] Jameel Rakesh [id number] Jameel Rakesh 03/08/2024 1 [facility] [id number] Jameel Rakesh [id number] Jameeljane Cameron Notes Date Note Type Note [...] Carroll NP [address] [place], [address], [employer] 03/08/2024 18:12:46 4 text/html Sinus Complaints UCReported [...] Carroll NP [address] [place], [address], [employer] [facility] 04/03/2024 16:53:33
== END 2025-04-02 15:34 | disposition home or self-care (01) ==
LOC: HO.CT 15:33
PROVIDERS: PCP Internal Medicine; Visit Provider Physician Assistant Medical
DX: Z12.2 Encounter for screening for malignant neoplasm of respiratory organs (principal); Z87.891 Personal history of nicotine dependence
CPT/HCPCS: 71271

== ENCOUNTER → 2025-04-02 15:34 | Outpatient (BNV) | payer OTHER, MEDICARE, SELFPAY | PROVIDERS: PCP Internal Medicine; Visit Provider Radiology Diagnostic Radiology | DX: Z87.891 Personal history of nicotine dependence (principal) | CPT/HCPCS: 71271 ==

== ENCOUNTER 2025-04-30 13:52 | Outpatient (AMB) | payer OTHER, MEDICARE, SELFPAY ==
--- OUTSIDE RECORDS SUMMARY | 2024-06-29 05:20 | XMS_ITS ---
Author Organization [facility] Address [address] [place] [phone] Care Team Providers Care Gameplay Engineer Name Role Phone SUNDAY PATIÑO Primary Care Provider Aime Munoz Jr [phone] Casey GIL, Nacho Unavailable Unavailable REASON FOR VISIT abd pain Encounters Encounter Location Date Provider Diagnosis [facility] [address] [facility] [address] [place] [phone] 06/29/2024 Aime May Jr Plan Of Treatment No Information Progress Notes * CHANTELL HUDSONOREDOB:[birth year] (75 yo M)Acc No.[id number]:06/29/2024 Progress Notes Patient: DALILA CHAMPAGNE Provider: Yaima May MD :1950 A ge:74 Y S ex:Male Date:06/29/2024 Address:[address] [place], [place] [id number] Pcp:SUNDAY PATIÑO Subjective: * Chief Complaints: * 1 . Abd pain. * Medical History: Objective: * Vitals: Assessment: Plan: * Treatment: * * The named appointment provid er may or may not be the originator of this progress note, and it is not deemed complete until electronically signed by the appointment provider. Sign off status: Pending * Provider: Yaima May MD Date: 1 Generated for Printi ng/Faxing/eTransmitting on: 0 04/30/2025 01:56 PM EDT
--- NOTE | 2025-04-30 13:54 | MHC.OFFVIS ---
Vital Signs 04/30/25 13:55 Height 5 ft 6 in Weight 161 lb 8 oz BMI 26.1 BP 112/64 Blood Pressure Location Rt brachial Position Sitting Pulse 117 H Pulse Source Pulse Oximeter Pulse Oximetry (%) 97 Oxygen Delivery Method Room Air Intake Visit Reasons: Hospital f/u COPD Allergies lamotrigine (From LAMICTAL) Allergy (Severe, Verified 04/30/25 13:58) agitation and anxiety with titration codeine (CODEINE) Allergy (Intermediate, Verified 04/30/25 13:58) INSOMNIA Penicillins (PENICILLINS) Allergy (Intermediate, Verified 04/30/25 13:58) RASH epinephrine (EPINEPHRINE) Adverse Reaction (Intermediate, Verified 04/30/25 13:58) Hypertension escitalopram (From LEXAPRO) Adverse Reaction (Intermediate, Verified 04/30/25 13:58) NIGHTMARES sertraline (From ZOLOFT) Adverse Reaction (Intermediate, Verified 04/30/25 13:58) NIGHTMARES sulfamethoxazole (From BACTRIM) Adverse Reaction (Intermediate, Verified 04/30/25 13:58) STOMACH UPSET HPI Comments Details: Jameel is a pleasant 75 year old male, former 30 pack year smoker, quit 5 years ago with underlying very severe COPD, CAD , HTN, HLD, PREMA on NIV, depression and anxiety. He has been improved control of respiratory symptoms with increased dose of Pulmicort, in addition to Spiriva, requiring Levalbuterol one inhalation BID previously using quite frequently. Previously trialed multiple combination inhalers including Symbicort, Breo, Trelegy and Breztri however could not tolerate LABA component. A prescription for Ohtuvayre was also trialed as well as Theophylline however patient could not tolerate. Since the last visit patient underwent LDCT which revealed interval development of mild irregular consolidation of the right upper lobe with minimal reticulonodular densities at the right upper lobe and minimal right lower lobe opacities, suggesting infectious/inflammatory infiltrates/pneumonia. He was treated with doxycycline as well as prednisone. Unfortunately he could not complete prednisone however did complete the doxycycline. Repeat imaging placed for 3 months to assess resolution. [facility] Medical History (Updated 04/09/25 @ 08:35 by Yvonne Berkowitz PA-C) CAD (coronary artery disease) Abnormal nuclear stress test Hypertension HLD (hyperlipidemia) Pneumonitis Chronic respiratory failure COPD (chronic obstructive pulmonary disease) Asthma Pulmonary nodule COVID-19 vaccine series completed Personal history of nicotine dependence Hx of small bowel obstruction Tardive dyskinesia Panic disorder History of major depression Generalized anxiety disorder IBS (irritable bowel syndrome) GERD (gastroesophageal reflux disease) Surgical History Stented coronary artery Hx of colonoscopy H/O bilateral inguinal hernia repair Hx of cholecystectomy Family History Father No problems noted. Mother No problems noted. Social History Household Members: Spouse and Children Household Members Other:: Emeka Housing: House Are you a primary hospice care transitions coordinator to a significant other at home: No Do you presently have visiting nurse or other home services: No Unable to assess alcohol history related to: Unknown Alcohol intake: never Comment: patient stable on ambulation Patient Tobacco Use Status: Former Tobacco user Tobacco use type: Cigarette Years Smoked: 35 e-Cigarette/Vaping Use: Never Used Second Hand Smoke Exposure: No service: No Sexual orientation: Lesbian/Triana/Homosexual Review of Systems Const Denies chills, Denies excessive sweating, Denies fever(s), Denies headache(s) and Denies night sweats Eyes Denies dry eyes, Denies irritation and Denies itchy eyes ENT Reports Normal hearing present and Denies headache(s) Card Denies chest pain, Denies chest pain at rest, Denies chest pain with activity, Denies claudication, Denies leg edema, Reports dyspnea on exertion, Denies orthopnea and Denies paroxysmal nocturnal dyspnea Resp Denies chest congestion, Denies cough, Denies hemoptysis, Denies excessive phlegm production, Denies pain on inspiration, Denies pain with cough, Reports dyspnea on exertion, Denies stridor and Reports wheezing Musc Denies myalgias Neuro Reports Normal hearing present and Denies headache(s) Endo Denies excessive sweating Ross/Lymph Denies lymphadenopathy Aller/Immun Denies itchy eyes, Denies seasonal rhinorrhea and Reports wheezing Physical Exam Vital Signs: Last Vital Signs Pulse 117 H 04/30/25 13:55 BP 112/64 04/30/25 13:55 Pulse Ox 97 04/30/25 13:55 Oxygen Delivery Method Room Air 04/30/25 13:55 BMI result Body Mass Index 26.1 Const General: cooperative, healthy appearing, comfortable, no acute distress and alert Orientation/consciousness: patient oriented x3 Limitations: no limitations HEENT Head: Yes normal to inspection, Yes normocephalic and Yes atraumatic Ears: hearing grossly normal bilaterally and external ears normal Eyes General: appearance normal, both eyes and all related structures Eyelids: Yes eyelids normal Sclerae: sclerae normal EOM: EOMs intact bilaterally Neck Neck: Yes normal visual inspection and Yes no lymphadenopathy Lymphatic: no lymphadenopathy noted Chest Chest palpation & inspection: normal inspection of the chest Resp Effort & Inspection: normal respiratory effort, able to speak in complete sentences, no audible wheezes, no cough, no stridor, not tachypneic, no tripod positioning, no use of accessory muscles and prolonged expiratory phase Auscultation: diminished lung sounds Cardio Jugular venous distension: no JVD Rate: regular rate Rhythm: regular rhythm Skin Other: warm, dry General skin exam: no rashes or lesions noted Neuro General: patient oriented x3 Cranial nerves: Yes Normal hearing present Cognition (Neuro): normal cognition Gait exam (Neuro): Normal gait present Extrem General: Yes normal to inspection, Yes capillary refill normal, Yes no clubbing, cyanosis or edema and Yes no pedal edema Psych Appearance: grossly normal and well kempt Speech and movement: Normal speech and movement present and Clear speech present Affect: normal affect Attitude: cooperative Thought process: Normal thought process present Thought content: Normal thought content present Insight: Good insight present (Psych) Judgement: Good judgement present (Psych) Results Reviewed Results Reviewed: [address] [address] [address] Scan Report Signed Patient: Jameel Cameron MR#: [id number] : 1950 Acct:[id number] Age/Sex: 75 / M ADM Date: 04/02/25 Loc: HO.CT Attending Dr: Yvonne Berkowitz PA-C Ordering Physician: Yvonne Berkowitz PA-C Date of Service: 04/02/25 Procedure(s): CT lung screening Accession Number(s): [id number] cc: Jacob Loza MD; Yvonne Berkowitz PA-C~ Report Number: [id number]: Total DLP = 50.00 mGy-cm CLINICAL HISTORY: Z87.891 - Personal history of nicotine dependence CT lung cancer screening (LDCT) Comparison: CT/REG/WA/SR - CT LUNG SCREENING - 03/31/24 16:38 EDT Technique: Axial CT images of the chest using low-dose technique. Referring provider counseled the patient on shared decision-making for LDCT screening. Additional counseling was provided on smoking cessation. Effective radiation dose total: DLP 39.3 mGycm, CTDIvol 1.1 mGy. Findings: Lung:Severe emphysema redemonstrated. Mild irregular subpleural right upper lobe opacity present with minimal reticulonodular densities at the right upper lobe. There are minimal opacities at the inferior aspect of the right lower lobe. No focal consolidation identified within the left lung. No pneumothorax or pleural effusion. No suspicious pulmonary nodules are identified. Coronary artery calcifications: [id number] Limited upper abdomen: The gallbladder is surgically absent. The remainder of the included portion of the upper abdomen is otherwise unremarkable. Other: None. Impression: 1. Interval development of mild irregular consolidation of the right upper lobe with minimal reticulonodular densities at the right upper lobe and minimal right lower lobe opacities, suggesting infectious/inflammatory infiltrates/pneumonia in the appropriate clinical setting. These findings may limit evaluation for underlying pulmonary nodules in these regions. Lung rads category 3: Probably benign, six-month CT recommended. 2. Severe emphysema redemonstrated. This document has been electronically signed by: Terence Mobley MD on 04/05/2025 21:19:17 Dictated By: Terence Mobley MD Signed By: <Electronically signed by Terence Mobley MD in OV> 04/05/252119 DD/ 18 TD/TT: 04/05/252118 Life Care Planner: Assessment & Plan Assessment & Plan (1) COPD (chronic obstructive pulmonary disease): Code(s): J44.9 - Chronic obstructive pulmonary disease, unspecified Category: Medical Qualifiers: COPD type: emphysema Emphysema type: centrilobular Qualified Code(s): J43.2 - Centrilobular emphysema (2) PREMA (obstructive sleep apnea): Code(s): G47.33 - Obstructive sleep apnea (adult) (pediatric) Category: Medical (3) Chronic respiratory failure: Code(s): J96.10 - Chronic respiratory failure, unspecified whether with hypoxia or hypercapnia Category: Medical Qualifiers: Respiratory failure complication: hypoxia Qualified Code(s): J96.11 - Chronic respiratory failure with hypoxia (4) Pulmonary nodule: Code(s): R91.1 - Solitary pulmonary nodule Category: Medical Plan Patient reports moderate control of respiratory symptoms on Pulmicort, Spiriva, requiring albuterol MDI infrequently. He is enrolled in the lung screening program, prior LDCT 04/15 revealed stable scattered pulmonary nodules <2mm and LDCT 03/2025 revealed interval development of mild irregular consolidation of the right upper lobe with minimal reticulonodular densities at the right upper lobe and minimal right lower lobe opacities, suggesting infectious/inflammatory infiltrates/pneumonia. He was treated with doxycycline but unfortunately could not complete prednisone. At this time he feels respiratory symptoms are at baseline. He has upcoming LDCT scheduled for 07/17. Of note, patient tachy HR 117 and encouraged patient to reestablish with cardiology however he attributes increased HR to anxiety. Denies chest pain, lightheadedness or dizziness. Discussed signs and symptoms which warrant emergent evaluation as well as minimal use of BRINA. All questions were answered and patient is in agreement of plan. Will follow up in 8-10 weeks or sooner if needed. Coding Level of Care Code Est Pt Level 4 (65048) Diagnoses Centrilobular emphysema J43.2 COPD type: emphysema Emphysema type: centrilobular PREMA (obstructive sleep apnea) G47.33 Chronic respiratory failure with hypoxia J96.11 Respiratory failure complication: hypoxia Pulmonary nodule R91.1
[2025-04-30 13:55] VITALS: BP 112/64; PULSE 117; O2SAT 97; BMI 26.1
--- OUTSIDE RECORDS SUMMARY | 2025-04-30 13:56 | XMS_ITS | Clinical Summary ---
Author Organization [facility] it Address [address] [place] [address] Care Team Providers Care Skating Carhop Name Role Phone Jacob Loza MD Primary Care Provider [phone] Medications amLODIPine (NORVASC) 5 mg tablet TAKE 1 TABLET BY MOUTH EVERY DAY 90 tablet 1 5 Active amLODIPine (NORVASC) 5 mg tablet TAKE 1 TABLET BY MOUTH EVERY DAY 90 tablet 1 5 04/29/20 25 Discontinued Surgical History Surgery Date Site/Laterality Comments CHOLECYSTECTOMY 2004 PROCEDURE: HISTORICAL CHOLECYSTECTOMY HERNIA REPAIR 02/19/2019 Bilateral PROCEDURE: HISTORICAL HERNIA REPAIR/ING CARDIAC CATHETERIZATION PROCEDURE: HISTORICAL CARDIAC CATH; COMMENT: stent of circumflex 1999 Medical History Medical History Date Comments Asthma, exercise induced 05/19/2019 DX:Asth ma, exercise induced CAD (coronary artery disease) 02/02/2019 DX :CAD (coronary artery disease); COMMENT: S/p stent circumflex 1999-[facility] COPD (chronic obstructive pu lmonary disease) ([facility] V24, [facility] V28) DX:COPD (chronic o bstructive pulmonary disease) ([facility]); COMMENT: Sees pul [facility] Dr. Baum Severe emphysema per PFTs 04/13/19 with FEV1 26% of predicte dvalue, FVC 47%, ratio 55%. Essential hypertension 03/09/2019 DX:Essent ial hypertension GERD (gastroesophageal reflu x disease) 01/27/2019 DX:GERD (gastroesophageal re flux disease); COMMENT: With duodenitis Hiatal hernia 01/27/2019 DX:Hiatal hernia ; COMMENT: Referred to surg by GI IBS (irritable bowel syndrome) D X:IBS (irritable bowel syndrome) Recurrent major depression-s evere (CMS/HCC V24, CMS/HCC V28) 05/06/2019 DX:Recurrent major depressi on-severe (HCC); COMMENT: Inpatient 2017, 2018 course of ECT, OP C OP team, [...] Panel) 08/21/2022 Colorectal Cancer Screening: Colonoscopy 08/21/2022 Falls Risk Assessment 08/21/2022 Hepatitis C Screening 08/21/2022 Social Influencers of Health Screening 08/21/2022 Hypertension/CHF/CAD Annual BMP Blood Test 08/30/2022 COVID-19 Vaccine (3 - 2023-2 5 season) 2024 11/23/2020, 10/26/2020 Depression Screening 09/23/2024 Influenza Vaccine (#1) 2025 07/06/2020 HIB Vaccines [...] age to complete this topic Care Teams Skating Carhop Relationship Specialty Start Date End Date Jacob Loza MD PCP - General Internal Medicine 04/27/21
== END 2025-04-30 14:41 | disposition home or self-care (01) ==
PROVIDERS: PCP Internal Medicine; Visit Provider Nurse Practitioner Family
DX: J43.2 Centrilobular emphysema (principal); G47.33 Obstructive sleep apnea (adult) (pediatric); J96.11 Chronic respiratory failure with hypoxia; R91.1 Solitary pulmonary nodule
CPT/HCPCS: 99214

== ENCOUNTER 2025-07-16 12:55 | Outpatient (AMB) | payer OTHER, MEDICARE, SELFPAY ==
--- OUTSIDE RECORDS SUMMARY | 2024-06-29 05:20 | XMS_ITS ---
Author Organization [facility] Address [address] [place] [phone] Care Team Providers Care Director Park Name Role Phone SUNDAY PATIÑO Primary Care Provider Aime Munoz Jr Casey GIL, Nacho Unavailable Unavailable REASON FOR VISIT abd pain Encounters Encounter Location Date Provider Diagnosis [facility] [address] [facility] [address] [place] [phone] 06/29/2024 Aime May Jr Plan Of Treatment No Information Progress Notes * CHANTELL HUDSONOREDOB:[birth year] (75 yo M)Acc No.[id number]:06/29/2024 Progress Notes Patient: DALILA CHAMPAGNE Provider: Yaima May MD :1950 A ge:74 Y S ex:Male Date:06/29/2024 Address:[address] [place], [place] [phone] Pcp:SUNDAY PATIÑO Subjective: * Chief Complaints: * 1 . Abd pain. * Medical History: Objective: * Vitals: Assessment: Plan: * Treatment: * * The named appointment provid er may or may not be the originator of this progress note, and it is not deemed complete until electronically signed by the appointment provider. Sign off status: Pending * Provider: Yaima May MD Date: Generated for Printi ng/Faxing/eTransmitting on: 02:51 PM EDT
--- OUTSIDE RECORDS SUMMARY | 2024-12-03 10:15 | XMS_ITS ---
Author Organization [facility] Address [address] [place] [id number] Care Team Providers Care Vasc Tech Name Role Phone SUNDAY PATIÑO Primary Care Provider Aime Munoz Jr Casey GIL, Nacho Unavailable Unavailable REASON FOR VISIT Patient presents today for abdominal pain Encounters Encounter Location Date Provider Diagnosis [facility] [address] [place] [phone] 12/03/2024 Aime May Jr Plan Of Treatment No Information Progress Notes * CHANTELL HUDSONOREDOB:[birth year] (75 yo M)Acc No.[id number]:12/03/2024 Progress Notes Patient: DALILA CHAMPAGNE Provider: Yaima May MD :1950 A ge:74 Y S ex:Male Date:12/03/2024 Address:[address] [place], [place] [id number] Pcp:SUNDAY PATIÑO Subjective: * Chief Complaints: * 1 . Patient presents today for abdominal pain. * Medical History: Objective: * Vitals: Assessment: Plan: * Treatment: * * The named appointment provid er may or may not be the originator of this progress note, and it is not deemed complete until electronically signed by the appointment provider. Sign off status: Pending * Provider: Yaima May MD Date: 0 12/03/2024 Generated for Juanita eden/Jesús/eTransmitting on: 1 02:51 PM EDT
[2025-07-16 13:02] VITALS: BP 110/64; PULSE 112; O2SAT 96; BMI 27.2
--- NOTE | 2025-07-16 13:02 | MHC.OFFVIS ---
Vital Signs 07/16/25 13:02 Height 5 ft 6 in Weight 168 lb 4 oz BMI 27.2 BP 110/64 Blood Pressure Location Rt brachial Position Sitting Pulse 112 H Pulse Source Pulse Oximeter Pulse Oximetry (%) 96 Oxygen Delivery Method Room Air Intake Visit Reasons: Hospital f/u COPD Allergies lamotrigine (From LAMICTAL) Allergy (Severe, Verified 07/16/25 13:08) agitation and anxiety with titration codeine (CODEINE) Allergy (Intermediate, Verified 07/16/25 13:08) INSOMNIA Penicillins (PENICILLINS) Allergy (Intermediate, Verified 07/16/25 13:08) RASH epinephrine (EPINEPHRINE) Adverse Reaction (Intermediate, Verified 07/16/25 13:08) Hypertension escitalopram (From LEXAPRO) Adverse Reaction (Intermediate, Verified 07/16/25 13:08) NIGHTMARES sertraline (From ZOLOFT) Adverse Reaction (Intermediate, Verified 07/16/25 13:08) NIGHTMARES sulfamethoxazole (From BACTRIM) Adverse Reaction (Intermediate, Verified 07/16/25 13:08) STOMACH UPSET HPI HPI Hospital f/u COPD: Details: Jameel is a pleasant 75 year old male, former 30 pack year smoker, quit 5 years ago with underlying very severe COPD, CAD , HTN, HLD, PREMA on NIV, depression and anxiety. He was suboptimally controlled on Pulmicort, Spiriva, Levalbuterol neb. and previously trialed multiple combination inhalers including Symbicort, Breo, Trelegy and Breztri however could not tolerate LABA component. A prescription for Ohtuvayre was also trialed as well as Theophylline however patient could not tolerate. He has been maintained on Pulmicort 180 mcg 2 inhalations BID in addition to a flutter valve, Levalbuterol MDI with good control of respiratory symptoms. Although he did report cold like symptoms mostly with nasal congestion that have persisted and will be trialing a nasal spray. He has been monitoring oxygen saturation >92% on room air, but has supplemental oxygen PRN. He has been using NIV previously prescribed by Dr. Torres and feels significant benefit from use, using 8 hours per night however compliance report demonstrates significant leaking. He also continues to daytime fatigue and nonrestorative sleep prompting question for updated sleep study however patient would like to defer at this time. [facility] Medical History (Updated 04/09/25 @ 08:35 by Yvonne Berkowitz PA-C) CAD (coronary artery disease) Abnormal nuclear stress test Hypertension HLD (hyperlipidemia) Pneumonitis Chronic respiratory failure COPD (chronic obstructive pulmonary disease) Asthma Pulmonary nodule COVID-19 vaccine series completed Personal history of nicotine dependence Hx of small bowel obstruction Tardive dyskinesia Panic disorder History of major depression Generalized anxiety disorder IBS (irritable bowel syndrome) GERD (gastroesophageal reflux disease) Surgical History Stented coronary artery Hx of colonoscopy H/O bilateral inguinal hernia repair Hx of cholecystectomy Family History Father No problems noted. Mother No problems noted. Social History Household Members: Spouse and Children Household Members Other:: Emeka Housing: House Are you a primary post acute care nurse to a significant other at home: No Do you presently have visiting nurse or other home services: No Alcohol intake: never Comment: patient stable on ambulation Patient Tobacco Use Status: Former Tobacco user Tobacco use type: Cigarette Years Smoked: 35 e-Cigarette/Vaping Use: Never Used Second Hand Smoke Exposure: No service: No Sexual orientation: Lesbian/Triana/Homosexual Review of Systems Const Denies chills, Denies excessive sweating, Denies fever(s), Denies headache(s) and Denies night sweats Eyes Denies dry eyes, Denies irritation and Denies itchy eyes ENT Reports Normal hearing present and Denies headache(s) Card Denies chest pain, Denies chest pain at rest, Denies chest pain with activity, Denies claudication, Denies leg edema, Reports dyspnea on exertion, Denies orthopnea and Denies paroxysmal nocturnal dyspnea Resp Denies chest congestion, Denies cough, Denies hemoptysis, Denies excessive phlegm production, Denies pain on inspiration, Denies pain with cough, Reports dyspnea on exertion, Denies stridor and Reports wheezing Musc Denies myalgias Neuro Reports Normal hearing present and Denies headache(s) Endo Denies excessive sweating Ross/Lymph Denies lymphadenopathy Aller/Immun Denies itchy eyes, Denies seasonal rhinorrhea and Reports wheezing Physical Exam Vital Signs: Last Vital Signs Pulse 112 H 07/16/25 13:02 BP 110/64 07/16/25 13:02 Pulse Ox 96 07/16/25 13:02 Oxygen Delivery Method Room Air 07/16/25 13:02 BMI result Body Mass Index 27.2 Const General: cooperative, healthy appearing, comfortable, no acute distress and alert Orientation/consciousness: patient oriented x3 Limitations: no limitations HEENT Head: Yes normal to inspection, Yes normocephalic and Yes atraumatic Ears: hearing grossly normal bilaterally and external ears normal Eyes General: appearance normal, both eyes and all related structures Eyelids: Yes eyelids normal Sclerae: sclerae normal EOM: EOMs intact bilaterally Neck Neck: Yes normal visual inspection and Yes no lymphadenopathy Lymphatic: no lymphadenopathy noted Chest Chest palpation & inspection: normal inspection of the chest Resp Effort & Inspection: normal respiratory effort, able to speak in complete sentences, no audible wheezes, no cough, no stridor, not tachypneic, no tripod positioning, no use of accessory muscles and prolonged expiratory phase Auscultation: diminished lung sounds Cardio Jugular venous distension: no JVD Rate: regular rate Rhythm: regular rhythm Skin Other: warm, dry General skin exam: no rashes or lesions noted Neuro General: patient oriented x3 Cranial nerves: Yes Normal hearing present Cognition (Neuro): normal cognition Gait exam (Neuro): Normal gait present Extrem General: Yes normal to inspection, Yes capillary refill normal, Yes no clubbing, cyanosis or edema and Yes no pedal edema Psych Appearance: grossly normal and well kempt Speech and movement: Normal speech and movement present and Clear speech present Affect: normal affect Attitude: cooperative Thought process: Normal thought process present Thought content: Normal thought content present Insight: Good insight present (Psych) Judgement: Good judgement present (Psych) Assessment & Plan Assessment & Plan (1) COPD (chronic obstructive pulmonary disease): Code(s): J44.9 - Chronic obstructive pulmonary disease, unspecified Category: Medical Qualifiers: COPD type: emphysema Emphysema type: centrilobular Qualified Code(s): J43.2 - Centrilobular emphysema (2) PREMA (obstructive sleep apnea): Code(s): G47.33 - Obstructive sleep apnea (adult) (pediatric) Category: Medical (3) Chronic respiratory failure: Code(s): J96.10 - Chronic respiratory failure, unspecified whether with hypoxia or hypercapnia Category: Medical Qualifiers: Respiratory failure complication: hypoxia Qualified Code(s): J96.11 - Chronic respiratory failure with hypoxia (4) Pulmonary nodule: Code(s): R91.1 - Solitary pulmonary nodule Category: Medical Plan Patient reports good control of respiratory symptoms on current regimen, advised to continue. He is aware to call if symptoms change. For ongoing nasal congestion will trial Flonase. He is enrolled in the lung screening program, prior LDCT 04/15 revealed stable scattered pulmonary nodules <2mm and LDCT 03/2025 revealed interval development of mild irregular consolidation of the right upper lobe with minimal reticulonodular densities at the right upper lobe and minimal right lower lobe opacities, suggesting infectious/inflammatory infiltrates/pneumonia. He was treated with doxycycline but unfortunately could not complete prednisone. Insurance denied [address], will enter order for [address] to assess for resolution of above findings. Discussed 6MWT to determine continued need for supplemental oxygen however patient would like to defer until next visit. We discussed leaking noted on compliance report and he will reach out to [employer] to trial another mask which may decrease significant leaking. Will discuss at follow up. All questions were answered and patient is in agreement of plan. Will follow up in 3 months or sooner if needed. Orders: Orders CT lung screen follow up 3 Months J18.1 - Lobar pneumonia, unspecified organism Medications: New fluticasone furoate 27.5 mcg/actuation (Flonase Sensimist) into each nostril 1 spray intranasal DAILY 9.1 mL 0RF Coding Level of Care Code Est Pt Level 4 (77359) Complex EM visit Add On G2211 Diagnoses Centrilobular emphysema J43.2 COPD type: emphysema Emphysema type: centrilobular PREMA (obstructive sleep apnea) G47.33 Chronic respiratory failure with hypoxia J96.11 Respiratory failure complication: hypoxia Pulmonary nodule R91.1
--- OUTSIDE RECORDS SUMMARY | 2025-07-16 14:52 | XMS_ITS | Clinical Summary ---
Author Organization [facility] it Address [address] [place] [address] Care Team Providers Care Skiver Counter Name Role Phone Jacob Loza MD Primary Care Provider [phone] Medications amLODIPine (NORVASC) 5 mg tablet TAKE 1 TABLET BY MOUTH EVERY DAY 90 tablet 1 04/29/2025 Active Surgical History Surgery Date Site/Laterality Comments CHOLECYSTECTOMY 2004 PROCEDURE: HISTORICAL CHOLECYSTECTOMY HERNIA REPAIR 02/19/2019 Bilateral PROCEDURE: HISTORICAL HERNIA REPAIR/ING CARDIAC CATHETERIZATION PROCEDURE: HISTORICAL CARDIAC CATH; COMMENT: stent of circumflex 1999 Medical History Medical History Date Comments Asthma, exercise induced 05/19/2019 DX:Asth ma, exercise induced CAD (coronary artery disease) 02/02/2019 DX :CAD (coronary artery disease); COMMENT: S/p stent circumflex 1999-[facility] COPD (chronic obstructive pu lmonary disease) ([facility] V24, [facility] V28) DX:COPD (chronic o bstructive pulmonary disease) ([facility]); COMMENT: Sees [facility] Dr. Baum Severe emphysema per PFTs 04/13/19 with FEV1 26% of predicte dvalue, FVC 47%, ratio 55%. Essential hypertension 03/09/2019 DX:Essent ial hypertension GERD (gastroesophageal reflu x disease) 01/27/2019 DX:GERD (gastroesophageal re flux disease); COMMENT: With duodenitis Hiatal hernia 01/27/2019 DX:Hiatal hernia ; COMMENT: Referred to surg by GI IBS (irritable bowel syndrome) D X:IBS (irritable bowel syndrome) Recurrent major depression-s evere ([facility] V24, [facility]/HCC V28) 05/06/2019 DX:Recurrent major depressi on-severe (HCC); COMMENT: Inpatient 2017, 2018 course of ECT, [place] [facility] [place], SSRI intolerances Severe anxiety with [...] Health Maintenance Due Date Last Done Comments Colorectal Cancer Screening: Colonoscopy 1950 DTaP,Tdap,and Td Vaccines (1 - Tdap) 02/02/1971 Pneumococcal Vaccine: 50+ Years (1 of 2 - PCV) 02/02/1971 RSV Immunization Adult Patients (1 - Risk 50-74 years 1-dose series) 02/02/2002 Zoster Vaccines (1 of 2) 02/02/2002 Abdominal Aortic Aneurysm (AAA) Screen 08/21/2022 Cholesterol Screening (Lipid Panel) 08/21/2022 Falls Risk Assessment 08/21/2022 Hepatitis C Screening 08/21/2022 Social Influencers of Health Screening 08/21/2022 Hypertension/CHF/CAD Annual BMP Blood Test 08/30/2022 Depression Screening 09/23/2024 COVID-19 Vaccine (3 - 2024-2 6 season) 2025 11/23/2020, 10/26/2020 Influenza Vaccine (#1) 2025 07/06/2020 [...] age to complete this topic Care Teams Skiver Counter Relationship Specialty Start Date End Date Jacob Loza MD PCP - General Internal Medicine 04/27/21
--- OUTSIDE RECORDS SUMMARY | 2025-07-16 14:52 | XMS_ITS | Clinical Summary ---
Author Organization [facility] Address [address] [address] Phone Care Team Providers Care Health Information Technologist Name Role Phone Jacob Loza MD Primary Care Provider [phone] Allergies Active Allergy Reactions Criticality Noted Date Comments Epinephrine Palpitations Low 03/29/2024 Penicillins Hives 03/29/2024 Medications amLODIPine (NORVASC) 5 MG tablet Take 1 tablet by mouth every morning. 4 Active PULMICORT FLEXHALER 90 mcg/actuation inhaler Inhale 1 puff into the lungs 2 (two) times a day. 4 Active levalbuterol (XOPENEX HFA) 45 mcg/actuation inhaler INHALE 1 PUFF INTO THE LUNGS EVERY 6 HOURS NEEDED FOR WHEEZING 4 Active LORazepam (ATIVAN) 1 MG tablet Take 1 mg by mouth 3 (three) times a day as needed. 4 Active SPIRIVA RESPIMAT 2.5 mcg/actuation mist for inhalation INHALE 2 PUFFS ORALLY DAILY 4 Active busPIRone (BUSPAR) 5 MG tablet Take 5 mg by mouth 3 (three) times a day. 5 Active dicyclomine (BENTYL) 10 MG capsule Take 30 mg by mouth 3 (three) times a day. 5 Active OHTUVAYRE 3 mg/2.5 mL NbSp 5 Active ATROVENT HFA 17 mcg/actuation inhaler INHALE 2 PUFFS BY MOUTH 4 TIMES A DAY FOR 30 DAYS 5 Active ipratropium bromide 0.02 % nebulizer solution INHALE 1 VIAL WITH NEBULIZER 2 TIMES A DAY 5 Active famotidine (PEPCID) 20 MG tablet Take 20 mg by mouth 2 (two) times a day. Active nortriptyline (PAMELOR) 25 MG capsule Take 25 mg by mouth nightly at bedtime. Active Bacillus coagulans-inuli n 1 billion-250 cell-mg Cap Take 250 mg by mouth daily. culturelle Active Active Problems No known active problems Social History Tobacco Use Types Packs/Day Years Used Date Smoking Tobacco: Never Assessed Education Answer Date Recorded Are you interested in more education? Not on melody e 03/29/2024 Are you concerned about learning? Not on file 03/29/2024 No 03/29/2024 No 03/29/2024 Digital Access Answer Date Recorded No 03/29/2024 No 03/29/2024 Reliable internet access at home? Not on file 03/29/2024 Device with a working camera? Not on file Sex and Gender Information Value Date Recorded Sex Assigned at Not on file Legal Sex Male 9:16 AM EDT Gender Identity Not on file Sexual Orientation Not on file Last Filed Vital Signs Vital Sign Reading Time Taken Comments Blood Pressure 109/62 12/01/2024 2:29 PM EDT Pulse 103 12/01/2024 2:29 PM EDT Temperature 36.8 C (98.3 F) 12/01/2024 2:29 PM EDT Respiratory Rate 18 12/01/2024 2:29 PM EDT Oxygen Saturation 99% 12/01/2024 2:29 PM EDT Inhaled Oxygen Concentration - - Weight - - Height - - Body Mass Index - - Plan of Treatment Health Maintenance Due Date Last Done Comments Adult Td,Tdap Booster 1950 LIPID PANEL 1950 DEPRESSION SCREENING 1964 SMOKING Hx and SMOKELESS TOBACCO SCREENING 02/02/1965 HEPATITIS C SCREENING 02/02/1970 PNEUMOCOCCAL VACCINES (50+ years) (1 of 2 - PCV) 02/02/1971 COLOGUARD 02/02/1997 COLONOSCOPY 02/02/1997 COLORECTAL CANCER SCREENING 02/02/1997 FIT TEST 02/02/1997 FOBT 02/02/1997 SIGMOIDOSCOPY 02/02/1997 VIRTUAL COLONOSCOPY 02/02/1997 INFLUENZA VACCINE (#1) 2025 , 07/19/2023, 07/09/2022, Additional history exists COVID-19 VACCINE (2024- season) 2025 07/04/2024, 07/19/2023, 08/22/2022, Additional history exists ZOSTER VACCINES Completed 01/18/2023, 06/23, 04/10/2021 RSV VACCINE Completed 10/31/2024 HEPATITIS A VACCINES Aged Out No long er eligible based on patient's age to complete this topic HIB VACCINES Aged Out No longer eligi ble based on patient's age to complete this topic MENINGOCOCCAL VACCINES (ACWY) Aged Out No longer eligible based on patient's age to complete this topic MENINGOCOCCAL VACCINES (B) Aged Out N o longer eligible based on patient's age to complete this topic Medical Devices Not on file Insurance MEDICARE PART A & B [facility] PLUS O MEDICARE PART A & B [employer] PLUS PPO MEDICARE PART A & B [employer] PLUS PPO MEDICARE PART A & B [employer] PLUS PPO MEDICARE PART A & B [employer] PLUS PPO MEDICARE PART A & B [employer] PLUS PPO Care Teams Health Information Technologist Relationship Specialty Start Date End Date Jacob Loza MD [address] [place] [id number] PCP - General Internal Medicine 03/29/24 Additional Source Comments The information contained in this document represents components of the legal health record. It is not the complete legal health record.[facility]
--- OUTSIDE RECORDS SUMMARY | 2025-07-16 14:52 | XMS_ITS | Patient Health Record ---
Author Organization [facility] Address [address] [place] [address] Care Team Providers Care Alterations Sewer Name Role Phone SUNDAY PATIÑO Primary Care Provider Unavailnava e Aime May Jr Unavailable [phone] Casey GIL, Nacho Unavailable Unavailable Allergies [...] 3 CAPSULES BY MOUTH 3 TIMES A DAY; Duration: 90 Active Albuterol Sulfate 108 (90 Base) MCG/ACT 1 puff as needed Inhalation every 4 hrs Active Ativan 0.5 MG 1 tablet at bedtime as needed Orally Once a day Active Nortriptyline HCl 25 MG 1 capsule Orally Once a day Active amLODIPine Besylate 10 MG TAKE 1 TABLET BY MOUTH EVERY DAY Oral; Duration: 90 Active Famotidine 40 MG 1 tablet Orally Twic e a day; Duration: 30 day(s) 03/09/2022 Active Levalbuterol Tartrate 45 MCG/ACT Inhalation; Duration: 17 Act shobha LORazepam 1 MG Oral; Duration: 30 Active Hyoscyamine Sulfate 0.125 MG Use 1 or 2 Sublingual every 4 to 6 hrs as needed for abdominal cramps/discomfort; Duration: 30 days 05/05/2024 Active Immunizations Vaccine Route [...] Problem Status W/U Status Risk Notes Problem Irritable bowel syndrome with diarrhea (354540989) Irritable bowel syndrome with diarrhea (K58.0) Active confirmed Problem Elevated liver enzymes level (675645101) Elevated LFTs (R79.89) Active confirmed Problem Gastroesophageal reflux disease without esophagitis (538769817) Gastroesophageal reflux disease without esophagitis (K21.9) Active confirmed Problem Irritable bowel syndrome (73124254) Irritable bowel syndrome with both constipation and diarrhea (K58.0) Active confirmed Encounters Encounter Location Date Provider Diagnosis [facility] [address] [place] [address] 12/01/2024 Aime May Jr Plan Of Treatment Pending Test Test Name Order Date US ABD 05/01/2021 Liver Panel 05/01/2021 Insurance Providers Payer Name Payer Address Payer Phone Subscriber Number Group Number Insured Name Patient Relationship to Insured Coverage Start Date Coverage End Date [facility] ([facility]) [address] [place] [address] [id number] DALILA HUDSON Self - patient is the insured MEDICARE OF [place] [address] [facility] [place] [address] [id number] DALILA HUDSON Self - patient is the insured Medical (General) History Medical History History ICD Code CAD, history of VA and stent placement Hypertension COPD Colonoscopy 08/09/21 2 adeno mas, no evidence of Crohn's disease, five-year followup Irritable bowel syndrome Gastroesophageal reflux dise ase, EGD 12/09, no H. pylori or Barton's esophagus Anxiety Surgical History Surgery Date(Month/Year) Inguinal herniorrhaphy 2018 Cholecystectomy 2005 Hospitalization History Reason Date(Month/Year) bowel blockage 2020
== END 2025-07-16 13:42 | disposition home or self-care (01) ==
PROVIDERS: PCP Internal Medicine; Visit Provider Nurse Practitioner Family
DX: J43.2 Centrilobular emphysema (principal); G47.33 Obstructive sleep apnea (adult) (pediatric); J96.11 Chronic respiratory failure with hypoxia; R91.1 Solitary pulmonary nodule
CPT/HCPCS: 99214